=== PATIENT | male | born 1955 | race Caucasian/White ===

== ENCOUNTER 2023-04-01 06:34 | Outpatient (OUT) | payer BC, SELFPAY ==
[2023-04-01 07:15] LABS: Basophils Percent Auto 0.7 % (0.2-2.0); Eosinophils Absolute Auto 0.2 10^3/uL (0.0-0.7); Eosinophils Percent Auto 2.7 % (0.9-7.0); Hematocrit 39.9 % (42.0-54.0); Hemoglobin 12.7 g/dL (14.0-18.0); Immature Granulocytes Abs Auto 0.01 10^3/uL (0.00-0.03); Immature Granulocytes Pct Auto 0.2 % (0.0-0.5); Lymphocytes Absolute Auto 1.6 10^3/uL (1.2-3.8); Lymphocytes Percent Auto 26.5 % (20.5-60.0); Mean Corpuscular HGB Conc 31.8 g/dL (29.9-35.2); Mean Corpuscular Hemoglobin 30.4 pg (25.9-34.0); Mean Corpuscular Volume 95.5 fL (80.0-94.0); Mean Platelet Volume 10.8 fL (9.5-13.5); Monocytes Absolute Auto 0.4 10^3/uL (0.3-0.8); Monocytes Percent Auto 7.2 % (1.7-12.0); Neutrophils Absolute Auto 3.8 10^3/uL (1.4-6.5); Neutrophils Percent Auto 62.7 % (43.0-75.0); Platelet Count 169 10^3/uL (150-450); Red Blood Count 4.18 10^6/uL (4.70-6.10); Red Cell Distribution Width 15.9 % (11.0-15.0)
[2023-04-01 07:16] LABS: Bilirubin Urine NEGATIVE (NEGATIVE); Blood Urine NEGATIVE (NEGATIVE); Clarity Urine CLEAR (CLEAR); Color Urine YELLOW (YELLOW); Glucose Urine UA NEGATIVE (NEGATIVE); Ketones Urine NEGATIVE (NEGATIVE); Leukocyte Esterase Urine NEGATIVE (NEGATIVE); Nitrite Urine NEGATIVE (NEGATIVE); Protein Urine NEGATIVE (NEG/TRACE); Specific Gravity Urine 1.025 (1.005-1.025); Urobilinogen Urine 0.2 EU/dL (0.2-1.0); pH Urine 5.5 (5.0-9.0)
[2023-04-01 09:45] LABS: Alanine Aminotransferase 64 U/L (16-63); Albumin Globulin Ratio 1.3; Albumin Level 3.8 g/dL (3.4-5.0); Alkaline Phosphatase 142 U/L (46-116); Anion Gap 12.4; Aspartate Amino Transferase 41 U/L (15-37); BUN Creatinine Ratio 29.4; Bilirubin Total 1.1 mg/dL (0.2-1.0); Calcium 7.4 mg/dL (8.5-10.1); Carbon Dioxide 20.6 mmol/L (21.0-32.0); Chloride 113 mmol/L (98-107); Chol HDL Ratio 1.7; Cholesterol 65 mg/dL (<=200); Estimated GFR (African America >60 (>=60); Estimated GFR (Non-African Ame >60 (>=60); Globulin 2.9 g/dL; Glucose 88 mg/dL (74-106); HDL Cholesterol 39 mg/dL (40-60); Sodium 142 mmol/L (136-145); Total Protein 6.7 g/dL (6.4-8.2); Triglycerides 34 mg/dL (<=150); VLDL CHOLESTEROL 6.8 mg/dL
[2023-04-01 13:19] LABS: Bacteria Urine NONE SEEN #/HPF (NONE SEEN); Cast Seen? NONE SEEN #/LPF (NONE SEEN); Crystals Seen? None Seen #/HPF (None Seen); Mucus Urine NONE SEEN (NONE SEEN); RBC Urine NONE SEEN #/HPF (0-2); Squamous Epithelial Cell Urine RARE #/LPF (NONE/RARE)
[2023-04-02 04:07] LABS: Vitamin B12 452 pg/mL (232-1245)
== END 2023-04-01 06:35 | disposition home or self-care (01) ==
PROVIDERS: PCP Nurse Practitioner; Visit Provider Nurse Practitioner
DX: K95.89 Other complications of other bariatric procedure (principal); D50.9 Iron deficiency anemia, unspecified; I50.22 Chronic systolic (congestive) heart failure; E78.5 Hyperlipidemia, unspecified; R31.0 Gross hematuria
CPT/HCPCS: 36415; 80053; 80061; 81001; 82607; 82728; 83540; 85025

== ENCOUNTER 2023-10-15 17:00 | Outpatient (OUT) | payer BC, SELFPAY ==
[2023-10-15 17:56] LABS: Prostate Specific Antigen Dx 1.87 ng/mL (<=4.00)
== END 2023-10-15 17:01 | disposition home or self-care (01) ==
PROVIDERS: PCP Nurse Practitioner; Visit Provider Urology
DX: C61 Malignant neoplasm of prostate (principal); N40.1 Benign prostatic hyperplasia with lower urinary tract symptoms; R31.0 Gross hematuria; N41.1 Chronic prostatitis; N20.0 Calculus of kidney; N28.1 Cyst of kidney, acquired
CPT/HCPCS: 36415; 84153

== ENCOUNTER 2023-12-24 07:03 | Outpatient (OUT) | payer BC, SELFPAY ==
--- OUTSIDE RECORDS SUMMARY | 2023-12-24 07:08 | XMS_ITS | CCD ---
Author Organization [facility] Care Team Providers Care Catastrophe Claims Supervisor Name Role Phone PHYSICIAN, DEFAULT Unavailable Unavailable PHYSICIAN, DEFAULT Unavailable Unavailable MATTHHEMANT ANGUIANOA J. Referring Unavailable AICHHOLMichelle, PARK J. Primary Care Unavailable MATTHSILVIO, PARK J Primary Care Physician ANAHI Jackson, DR NGUYỄN Consulting Unavailable BRIGGS ., DR NGUYỄN Admitting Unavailable BRIGGS ., DR NGUYỄN Attending Unavailable AICHHOLZ, COORDINATE MEASURING MACHINE PROGRAMMER PARK Primary Care Unavailable MISC, DR AYERS Consulting Unavailable MISC, DR AYERS Admitting Unavailable MISC, DR AYERS Attending Unavailable AICHHOLZ, COORDINATE MEASURING MACHINE PROGRAMMER PARK Primary Care Unavailable AICHHOLZ, COORDINATE MEASURING MACHINE PROGRAMMER PARK Consulting Unavailable AICHHOLZ, COORDINATE MEASURING MACHINE PROGRAMMER PARK Primary Care Unavailable BRIGGS ., DR NGUYỄN Admitting Unavailable BRIGGS ., DR NGUYỄN Attending Unavailable ZIEBER, DR CASSIDY Ross Consulting Unavailable ELI DALAL Attending Unavailable ELI DALAL Admitting Unavailable AICHHOLZ, COORDINATE MEASURING MACHINE PROGRAMMER PARK Primary Care Unavailable JENNIFER DRAKE Consulting Unavailable DEANNE OTOOLE Consulting UnavailISACC Sidhu Admitting Unavailable ISACC BEJARANO Attending Unavailable AICHHOLZ, COORDINATE MEASURING MACHINE PROGRAMMER PARK Primary Care Unavailable ISACC BEJARANO Consulting Unavailable AICHHOLZ, COORDINATE MEASURING MACHINE PROGRAMMER PARK Primary Care Unavailable NILL ., DR MCALLISTER Admitting Unavailable NILL ., DR MCALLISTER Attending Unavailable NILL ., DR MCALLISTER Consulting Unavailable AICHHOLZ, COORDINATE MEASURING MACHINE PROGRAMMER PARK Primary Care Unavailable NILL ., DR MCALLISTER Admitting Unavailable NILL ., DR MCALLISTER Attending Unavailable GRACE LEO Consulting Unavailable JUAN ORO Consulting Unavailable AICHHOLZ, COORDINATE MEASURING MACHINE PROGRAMMER PARK Consulting Unavailable AICHHOLZ, COORDINATE MEASURING MACHINE PROGRAMMER PARK Primary Care Unavailable AICHHOLZ, COORDINATE MEASURING MACHINE PROGRAMMER PARK Admitting Unavailable AICHHOLMichelle, COORDINATE MEASURING MACHINE PROGRAMMER PARK Attending Unavailable MATTHSILVIO, COORDINATE MEASURING MACHINE PROGRAMMER PARK Consulting Unavailable PARESH, COORDINATE MEASURING MACHINE PROGRAMMER PARK Admitting Unavailable PARESH, COORDINATE MEASURING MACHINE PROGRAMMER PARK Attending Unavailable PARESH, LILIANA MARCOSA Primary Care Unavailable ANAHI, Puneet Ross Attending Unavailable ANAHI, Puneet Ross Attending Unavailable ANAHI, Puneet R Attending Unavailable ANAHI, Puneet R Attending Unavailable BRIGGS, Puneet Ross Attending Unavailable ANAHI, Puneet Ross Attending Unavailable PARESH, PARK Attending Unavailable Kenny Hartley MD Primary Care Provider Medications Current Medications Medication Drug Class(es) Dates Sig (Normalized) Sig (Original) Aspirin (6 sources) Platelet Aggregation Inhibitor, Nonsteroidal Anti-inflammatory Drug Start: 10-20-2019 aspirin 81 mg, Refills(s) 0 Start Date: 10/20/19 Status: Ordered atorvastatin 40 mg oral tablet (9 sources) HMG-CoA Reductase Inhibitor Start: 04-27-2020 take 1 tablet by mouth in the morning atorvastatin (Lipitor) 40 MG tablet Take 1 tablet by mouth in the morning. 0 08/06/2023 Active Calcium Carbonate (6 sources) Start: 12-06-2021 calcium carbonate 500 mg Chew Tab 500 mg = 1 tab(s), Chewed, Daily, Refills(s) 0 Start Date: 12/06/21 Status: Ordered cetirizine hydrochloride 10 mg oral tablet (3 sources) Histamine-1 Receptor Antagonist Start: 03-03-2023 take 1 tablet by mouth in the morning cetirizine (ZyrTEC) 10 MG tablet Take 1 tablet by mouth in the morning. 0 03/03/2023 Active dutasteride 0.5 mg oral capsule (7 sources) 5-alpha Reductase Inhibitor Start: 11-04-2022 End: 10-30-2023 take 1 capsule by mouth in the morning dutasteride (Avodart) 0.5 MG capsule Take 1 capsule by mouth in the morning. 0 09/08/2023 Active fluticasone propionate 0.05 mg/actuat metered dose nasal spray (3 sources) Corticosteroid Start: 03-03-2023 take 2 spray(s) nasal route in the morning fluticasone (Flonase) 50 MCG/ACT nasal spray Administer 2 sprays into each nostril in the morning. 0 03/03/2023 Active Iron Chews (6 sources) Start: 12-06-2021 Iron Chews 1, Chewed, Daily, Refills(s) 0 Start Date: 12/06/21 Status: Ordered lisinopril 5 mg oral tablet (9 sources) Angiotensin Converting Enzyme Inhibitor Start: 12-06-2021 take 1 tablet by mouth in the morning lisinopril 5 MG tablet Take 1 tablet by mouth in the morning. 0 08/06/2023 Active 24 hr metoprolol succinate 25 mg extended release oral tablet (9 sources) beta-Adrenergic Chelle Start: 07-09-2023 take 1 tablet by mouth every twenty-four hours in the morning metoprolol succinate XL (Toprol-XL) 25 MG 24 hr tablet Take 1 tablet by mouth in the morning. 0 07/09/2023 Active Start: 10-24-2019 take 1 tablet by brissa th once daily metoprolol 25 mg ER Tab 25 mg = 1 tab(s), Oral, Daily Start Date: 10/24/19 Status: Ordered Multi Vitamin+ (6 sources) Start: 10-24-2019 Multi Vitamin+ Start Date: 10/24/19 Status: Ordered Multiple Vitamin (multivitamin) tablet (3 sources) take 1 tablet by mouth in the morning Multiple Vitamin (multivitamin) tablet Take 1 tablet by mouth in the morning. 0 Active Completed/Discontinued Medications Medication Drug Class(es) Dates Sig (Normalized) Sig (Original) ciprofloxacin 500 mg oral tablet (2 sources) Quinolone Antimicrobial Start: 10-13-2022 take 1 tablet by mouth once daily Cipro 500 mg Tab 500 mg = 1 tab(s), Oral, Daily, Take 1 tablet the day before the procedure and 1 tablet after the procedure, # 2 tab(s), Refills(s) 0, Pharmacy: [id number], 176, cm, 05/19/22 16:10:00 EDT, Height/Length Dosing, 115, kg, 05/19/22 16:10:00 ED... Start Date: 10/13/22 Status: Ordered Problems Active Problems Problem Classification Problem Date Documented Da te Episodic/Chronic Cancer of prostate (18 sources) Malignant tumor of prostate; Translations: [Malignant neoplasm of prostate] Onset: 12-24-2021 11-30-2020 Chronic Cardiac dysrhythmias (20 sources) Atrial flutter; Translations: [Nonsustained ventricular tachycardia ] Onset: 03-25-2017 12-06-2021 Chronic Conduction disorders (10 sources) Right bundle branch block; Translations: [Unspecified right bundle-branch block] Onset: 12-01-2017 12-06-2021 Chronic Congestive heart failure; nonhypertensive (13 sources) Chronic systolic heart failure; Translations: [Chronic systolic (congestive) heart failure] Onset: 04-09-2017 12-06-2021 Chronic Deficiency and other anemia (14 sources) Iron deficiency anemia; Translations: [Other iron deficiency anemias] Onset: 01-01-2022 Episodic Deficiency and other anemia (9 sources) Anemia 12-06-2021 Episodic Disorders of lipid metabolism (5 sources) Hyperlipidemia, unspecified; Translations: [Mixed hyperlipidemia] Onset: 05-19-2022 11-04-2023 Chronic Essential hypertension (14 sources) Hypertensive disorder; Translations: [Essential hypertension] Onset: 11-15-2021 10-20-2019 Chronic Gastritis and duodenitis (1 source) Unspecified chronic gastritis without bleeding; Translations: [UNS CHRONIC GASTRITIS W/O BLEEDING] Onset: 12-24-2021 Chronic Gastroduodenal ulcer (except hemorrhage) (1 source) Gastric ulcer, unspecified as acute or chronic, without hemorrhage or perforation; Translations: [GASTR ULCR UNS AC/CHRN W/O HEM/PERF] Onset: 12-24-2021 Chronic Gastroduodenal ulcer (except hemorrhage) (10 sources) Acute gastric ulcer without hemorrhage AND without perforation; Translations: [Acute gastric ulcer without hemorrhage or perforation] Onset: 01-01-2022 Episodic Genitourinary symptoms and ill-defined conditions (12 sources) Blood in urine; Translations: [Gross hematuria] Onset: 05-01-2022 Episodic Heart valve disorders (6 sources) Heart murmur 12-06-2021 Episodic Hyperplasia of prostate (16 sources) Benign prostatic hypertrophy with outflow obstruction; Translations: [Benign prostatic hyperplasia with lower urinary tract symptoms] Onset: 05-19-2022 11-30-2020 Chronic Hypertension with complications and secondary hypertension (1 source) Hypertensive heart disease with heart failure; Translations: [HTN HEART DISEASE W/HEART FAIL] Onset: 12-24-2021 Chronic Inflammatory conditions of male genital organs (11 sources) Chronic prostatitis; Translations: [Chronic prostatitis] Onset: 05-19-2022 10-24-2019 Chronic Other aftercare (1 source) snf (current) use of aspirin; Translations: [SPLITTER HEAD CURRENT USE OF ASPIRIN] Onset: 09-15-2022 Episodic Other aftercare (1 source) Other joint terminal attack controller (current) drug therapy; Translations: [OTH SPLITTER HEAD CURRENT DRUG THERAPY] Onset: 09-15-2022 Episodic Other diseases of kidney and ureters (5 sources) Urinary tract obstruction; Translations: [Other obstructive and reflux uropathy] Onset: 05-19-2022 Episodic Other diseases of kidney and ureters (3 sources) Acquired renal cyst without neoplastic change; Translations: [Cyst of kidney, acquired] Onset: 11-04-2022 Episodic Other diseases of kidney and ureters (4 sources) Cyst of kidney 11-04-2022 Episodic Other diseases of veins and lymphatics (7 sources) Venous insufficiency of leg 12-06-2021 Episodic Other gastrointestinal disorders (4 sources) History of bariatric surgical procedure; Translations: [Bariatric surgery status] Onset: 11-04-2023 11-04-2023 Episodic Other nutritional; endocrine; and metabolic disorders (10 sources) Body mass index 30+ - obesity; Translations: [Body mass index (BMI) 37.0-37.9, adult] Onset: 11-04-2023 12-06-2021 Chronic Other nutritional; endocrine; and metabolic disorders (4 sources) Obese class II; Translations: [Body mass index (BMI) 36.0-36.9, adult] Onset: 05-19-2022 Chronic Catherine-; endo-; and myocarditis; cardiomyopathy (except that caused by tuberculosis or sexually transmitted disease) (15 sources) Cardiomyopathy; Translations: [Other cardiomyopathies] Onset: 09-18-2017 12-06-2021 Chronic Pulmonary heart disease (1 source) Pulmonary hypertension, unspecified; Translations: [PULMONARY HYPERTENSION UNSPECIFIED] Onset: 12-24-2021 Chronic Screening and history of mental health and substance abuse codes (1 source) Personal history of nicotine dependence; Translations: [PERSONAL HISTORY OF NICOTINE DEPEND] Onset: 09-15-2022 Episodic Unclassified (7 sources) Severe pulmonary hypertension 12-06-2021 Unclassified (3 sources) History of SARS-CoV-2 Onset: 11-19-2021 03-12-2023 Past or Other Problems Problem Classification Problem Date Documented Da te Episodic/Chronic Acute and unspecified renal failure (3 sources) Acute renal failure syndrome Onset: 01-15-2014 03-12-2023 Episodic Calculus of urinary tract (20 sources) History of calculus of kidney; Translations: [Kidney stone] Onset: 01-15-2014 10-24-2019 Episodic Complications of surgical procedures or medical care (9 sources) Postoperative complication; Translations: [Other complications of other bariatric procedure] Onset: 12-24-2021 Episodic Deficiency and other anemia (5 sources) Iron deficiency anemia, unspecified; Translations: [IRON DEFICIENCY ANEMIA UNSPECIFIED] Onset: 12-18-2021 Episodic Fluid and electrolyte disorders (3 sources) Hypokalemia Onset: 01-15-2014 03-12-2023 Episodic Other gastrointestinal disorders (1 source) Bariatric surgery status; Translations: [BARIATRIC SURGERY STATUS] Onset: 12-24-2021 Episodic Urinary tract infections (1 source) Urinary tract infection, site not specified; Translations: [UTI SITE NOT SPECIFIED] Onset: 05-01-2022 Episodic Results Test Name Value Interpretation Reference Range Facility Ambulatory Visit Summaryon 0 04-13-2023 Ambulatory Visit Summary SHABNAM BURGESS :1955 Visit Date:04/13/2023 Ambulatory Visit Instructions Your Diagnosis Prostate cancer BPH with urinary obstruction Gross hematuria Chronic prostatitis Kidney stones Renal cyst Tests Performed Urnls Dip Stick Auto w/o Microscopy POC [id number] Your Care Team Attending Physician - Puneet BRIGGS MD Primary Care Physician - PARK YODER CNP This Is Your Medications List Contact prescribing physician if questions or concerns aspirin atorvastatin (atorvastatin 40 mg Tab) calcium carbonate (calcium carbonate 500 mg Chew Tab) carbonyl iron (Iron Chews) dutasteride (dutasteride 0.5 mg Cap) lisinopril (lisinopril 5 mg Tab) metoprolol (metoprolol 25 mg ER Tab) multivitamin (Multi Vitamin+) Procedures Performed Cystoscopy (11/04/2022), Colonoscopy (12/18/2021), EGD - Esophagogastroduodenoscopy (12/18/2021), MRI-US fusion guided transrectal biopsy of prostate (11/14/2021), Transrectal biopsy of prostate using ultrasound (US) guidance (03/27/2021), TURP - Transurethral resection of prostate (03/22/2020), Cystoscope (01/12/2017), Gastric bypass operation (1999), Appendectomy, Cardiac catheterization, Cholecystectomy, Colonoscopy, History of cardiac radiofrequency ablation, Lithotripsy, Repair of umbilical hernia. Discharge Vitals Heart Rate (Peripheral) 68 Respiratory Rate 16 Blood Pressure 130/80 Height 176 cm Height 69 in Weight 115 kg Weight 253 lb BMI 37.13 What to do next Scheduled Follow-Up Appointments Thursday 2:45 PM EST With: ANAHI MCDONALD, Puneet Ross Where: [facility] Natalie Normal [facility] Patient Educationon 04-13-20 Patient Education Oncology Prostate Cancer The prostate is a small gland that produces fluid that makes up semen (seminal fluid). It is located below the bladder in men, in front of the rectum. Prostate cancer is the abnormal growth of cells in the prostate gland. What are the causes? The exact cause of this condition is not known. What increases the risk? You are more likely to develop this condition if: ? You are 65 years of age or older. ? You have a family history of prostate cancer. ? You have a family history of breast and ovarian cancer. ? You have genes that are passed from parent to child (inherited), such as BRCA1 and BRCA2. ? You have Reardon syndrome. men and men of descent are diagnosed with prostate cancer at higher rates than other men. The reasons for this are not well understood and are likely due to a combination of genetic and environmental factors. What are the signs or symptoms? Symptoms of this condition include: ? Problems with urination. This may include: ? A weak or interrupted flow of urine. ? Trouble starting or stopping urination. ? Trouble emptying the bladder all the way. ? The need to urinate more often, especially at night. ? Blood in urine or semen. ? Persistent pain or discomfort in the lower back, lower abdomen, or hips. ? Trouble getting an erection. ? Weakness or numbness in the legs or feet. How is this diagnosed? This condition can be diagnosed with: ? A digital rectal exam. For this exam, a health care provider inserts a gloved finger into the rectum to feel the prostate gland. ? A blood test called a prostate-specific antigen (PSA) test. ? A procedure in which a sample of tissue is taken from the prostate and checked under a microscope (prostate biopsy). ? An imaging test called transrectal ultrasonography. Once the condition is diagnosed, tests will be done to determine how far the cancer has spread. This is called staging the cancer. Staging may involve imaging tests, such as a bone scan, CT scan, PET scan, or MRI. Stages of prostate cancer The stages of prostate cancer are as follows: ? Stage 1 (I). At this stage, the cancer is found in the prostate only. The cancer is not visible on imaging tests, and it is usually found by accident, such as during prostate surgery. ? Stage 2 (II). At this stage, the cancer is more advanced than it is in stage 1, but the cancer has not spread outside the prostate. ? Stage 3 (III). At this stage, the cancer has spread beyond the outer layer of the prostate to nearby tissues. The cancer may be found in the seminal vesicles, which are near the bladder and the prostate. ? Stage 4 (IV). At this stage, the cancer has spread to other parts of the body, such as the lymph nodes, bones, bladder, rectum, liver, or lungs. Prostate cancer grading Prostate cancer is also graded according to how the cancer cells look under a microscope. This is called the Marixa score and the total score can range from 6?10, indicating how likely it is that the cancer will spread (metastasize) to other parts of the body. The higher the score, the greater the likelihood that the cancer will spread. ? Marixa 6 or lower: This indicates that the cancer cells look similar to normal prostate cells (well differentiated). ? [place] 7: This indicates that the cancer cells look somewhat similar to normal prostate cells (moderately differentiated). ? [place] 8, 9, or 10: This indicates that the cancer cells look very different than normal prostate cells (poorly differentiated). How is this treated? Treatment for this condition depends on several factors, including the stage of the cancer, your age, personal preferences, and your overall health. Talk with your health care provider about treatment options that are recommended for you. Common treatments include: ? Observation for early stage prostate cancer (active surveillance). This involves having exams, blood tests, and in some cases, more biopsies. For some men, this is the only treatment needed. ? Surgery. Types of surgeries include: ? Open surgery (radical prostatectomy). In this surgery, a larger incision is made to remove the prostate. ? A laparoscopic radical prostatectomy. This is a surgery to remove the prostate and lymph nodes through several small incisions. It is often referred to as a minimally invasive surgery. ? A robotic radical prostatectomy. This is laparoscopic surgery to remove the prostate and lymph nodes with the help of robotic arms that are controlled by the surgeon. ? Cryoablation. This is surgery to freeze and destroy cancer cells. ? Radiation treatment. Types of radiation treatment include: ? External beam radiation. This type aims beams of radiation from outside the body at the prostate to destroy cancerous cells. ? Brachytherapy. This type uses radioactive needles, seeds, wires, or tubes that are implanted into the prostate gland. Like external be (more content not included)... Normal [facility] Reminderson 04-13-2023 Reminders - From: Shala Soares To: JAYASHREE Briggs; Sent: 04/13/2023 16:27:00 EDT Show up: 09/13/2023 15:26:00 EST Subject: PSA Reminder Message Please Remember to:_get PSA (at [facility]) prior to next appt. Normal [facility] Urology Office/Clinic Noteon 04-13-2023 Urology Office/Clinic Note Chief Complaint 4m HPI Staff S/P Cysto 11/04/22 DX: Gross hematuria, Prostate Cancer, Chronic Prostatitis, BPH, Kidney Stone & Renal Cysto *Dutasteride 5mg QD therapy started at time of last encounter. NEG FISH/Cytology done 11/04/22 PSA 11/21/22- 2.36 Does not notice any changes since starting Dutasteride therapy. Denies pain/burning and visible blood since last encounter. Denies any complaints with urinary stream. Denies flank pain. No concerns at this time. History of Present Illness Tests reviewed: reviewed UA I have reviewed the previous health record information and history for this patient from Dr. Briggs. I have reviewed and verified the staff HPI to be accurate for this encounter. There have been no associated fever, chills, flank pain, or blood in the urine. Denies any urinary infections since last encounter. Review of Systems PHQ Score Initial Depression Screen Score: 0 ROS - Provider Constitutional: denies weight loss, denies hot flashes. Eyes: denies eye problems. Gastrointestinal: denies nausea, denies vomiting. Cardiovascular: denies chest pain or angina. Integumentary: no dryness Musculoskeletal: denies musculoskeletal symptoms. ENMT: denies otolaryngeal symptoms. Respiratory: no shortness of breath. Heme/Lymph: denies easy bleeding tendency, denies easy bruising tendency. Psychiatric: no confusion, no anxiety. Genitourinary: See HPI. Physical Exam Vitals & Measurements HR: 68(Peripheral) RR: 16 BP: 130/80 HT: 69 in HT: 176 cm WT: 115 kg WT: 253 lb BMI: 37.13 General Appearance: alert, no distress, well nourished, well developed male. Genitourinary: normal scrotum, normal testes, normal urethra, normal epididymis, normal vas deferens/spermatic cord. Flank Pain: none. Bladder: nonpalpable. Assessment/Plan 1. Prostate cancer (C61: Malignant neoplasm of prostate) ACTIVE SURVEILLANCE. PSA: 08/30/20 - 2.75 11/29/20 - 3.75 05/16/22 - 3.63 11/21/22 - 2.36 (4.72) Follow up in 6 months w/ PSA, MARYLOU, and PVR or sooner if needed. All questions/concerns were discussed. Pt to call the office if he encounters any issues prior. Pt acknowledges understanding. 2. BPH with urinary obstruction (N40.1: Benign prostatic hyperplasia with lower urinary tract symptoms) S/p TURP done 03/22/20. Path showed adenocarcinoma in 2 out 150 prostatic chips. Pt is currently taking Dutasteride 0.5mg QD. Denies SEs. Pt is doing well with no bothersome urinary sxs at this time. 3. Gross hematuria (R31.0: Gross hematuria) S/p Cysto and FISH/Cytology 11/04/22 - negative. UA today negative for blood and shows trace leukocytes. 4. Chronic prostatitis (N41.1: Chronic prostatitis) Denies any infections since prior encounter. [1] 5. Kidney stones (N20.0: Calculus of kidney) CT AP wo con done 04/30/22 shows 2 nonobstructing stones within left kidney, largest is 4 mm. No ureteral stones. Denies any stone complications since prior encounter. [2] 6. Renal cyst (N28.1: Cyst of kidney, acquired) CT AP wo con done 04/30/22 shows small cyst within right and left kidney. Suspected benign cysts. [3] Follow-up With When Contact Information ANAHI MCDONALD, Puneet Ross, URL [facility] [address], [place] [id number] [phone] Additional Instructions: 6 mos w/ PSA and PVR Patient Education Prostate Cancer I, Shala Soares, personally scribed for Dr. Briggs on 04/13/2023 16:25:11. . Documentation recorded by the scribe, Shala Soares, accurately reflects the services(s) I performed and decisions made by me. Authenticated by Dr. Briggs on 04/13/2023 16:26:52. Problem List/Past Medical History Ongoing Acute gastric ulcer without hemorrhage AND without perforation Acute renal failure syndrome Anemia Atrial flutter BMI 36.0-36.9,adult BPH with urinary obstruction Cardiomyopathy Chronic prostatitis Chronic systolic heart failure Essential hypertension Gastric ulcer Gross hematuria History of kidney stones History of SARS-CoV-2 Hypertension Hypokalemia Iron deficiency anemia Iron deficiency anemia following bariatric surgery Kidney stones Malignant tumor of prostate Multiple premature ventricular complexes Murmur Non-ischemic cardiomyopathy Non-sustained ventricular tachycardia Obese class II Paroxysmal ventricular tachycardia Postoperative complication Prostate cancer Renal cyst Right bundle branch block Severe pulmonary hypertension Typical atrial flutter Ureteric stone Urinary tract obstruction Venous insufficiency of leg Ventricular premature complex Historical Anemia Procedure/Surgical History Cystoscopy (11/04/2022), Colonoscopy (12/18/2021), EGD - Esophagogastroduodenoscopy (12/18/2021), MRI-US fusion guided transrectal biopsy of prostate (11/14/2021), Transrectal biopsy of prostate using ultrasound (US) guidance (03/27/2021), TURP - Transurethral resection of prostat (more content not included)... Normal [facility] Comment on above: Result Comment: Electronically Signed By : Puneet BRIGGS MD\.br\Date and Time Signed: 04/13/23 16:26 EDT\.br\Electronically Co-Signed By: Shala Soares\.yonathan\Date and Time Co-Signed: 04/13/23 16:25 EDT Lab Reportson 11-30-2022 Lab Reports [id number] Normal [facility] UroVysion Fish and Urine Cyt o ([facility])on 11-13-2022 UVFISH & UC Diagnosis Info Invalid Interpretation Code [facility] Comment on above: Result Comment: A:Urine,Urine:Voided Diagnosis Summary - Diagnosis Summary - The UroVysion FISH study detected normal copy numbers for chromosomes 3, 7, 17, and 9p21. 170 cells were analyzed in this evaluation. No evidence of aneuploidy for chromosomes 3, 7, or 17 or deletion of the 9p21 locus was found in cells present in this specimen. This test does not rule out the possibility of a low grade non-invasive papillary urothelial carcinoma. These findings should be correlated with cytology and cystoscopy results.* Microscopic Notes - Microscopic Notes - Abnormal cells 9p21 deletions: Abnormal cells aneploid events: Total cells analyzed: 170 Hematuria: Gross Description Site ID:A color [place] fixative Alcohol Received 80 mls of clear orange fluid with the patient's name and, Urine on the vial. Electronically signed by : on: 11/13/2022 08:34:30 Performed By: #### 1 [id number] ####[facility] [address] [place] [address] Consent for Procedure/Surger yon 11-05-2022 Consent for Procedure/Surge ry [id number]:127 Normal [facility] UroVysion Fish and Urine Cyt o ([facility])on 11-04-2022 [facility] Method of Extraction Bladder Urine Normal [facility] Comment on above: Performed By: #### [id number] ####[facility] [address] [place] [address] [facility] Number of Jars 1 Invalid Interpretation Code [facility] Comment on above: Performed By: #### [id number] ####[facility] [address] [place] [address] [facility] Specimen Urine Normal [facility] Comment on above: Performed By: #### [id number] ####[facility] [address] [place] [address] [facility] Type of Service Global Normal [facility] Comment on above: Performed By: #### [id number] ####[facility] [address] [place] [address] Urology Office/Clinic Noteon 11-04-2022 Urology Office/Clinic Note Chief Complaint Cystoscopy HPI Staff Shabnam is a 66 y/o male here for a Cystoscopy. ABX taken History of Present Illness Tests reviewed: none. I have reviewed the previous health record information and history for this patient from Dr. Briggs. I have reviewed and verified the staff HPI to be accurate for this encounter. There have been no associated fever, chills, flank pain, or blood in the urine. Denies any urinary infections since last encounter. Review of Systems PHQ Score Initial Depression Screen Score: 0 ROS - Provider Constitutional: denies weight loss, denies hot flashes. Eyes: denies eye problems. Gastrointestinal: denies nausea, denies vomiting. Cardiovascular: denies chest pain or angina. Integumentary: no dryness Musculoskeletal: denies musculoskeletal symptoms. ENMT: denies otolaryngeal symptoms. Respiratory: no shortness of breath. Heme/Lymph: denies easy bleeding tendency, denies easy bruising tendency. Psychiatric: no confusion, no anxiety. Genitourinary: See HPI. Physical Exam Vitals & Measurements HR: 68(Peripheral) BP: 118/69 HT: 69 in HT: 176 cm WT: 115 kg WT: 253 lb BMI: 37.13 General Appearance: alert, no distress, well nourished, well developed male. Genitourinary: normal scrotum, normal testes, normal urethra, normal epididymis, normal vas deferens/spermatic cord. Flank Pain: none. Bladder: nonpalpable. Procedure Operative Information Anesthesia Type: Local Procedure: Local Cystoscopy Complications: None Surgical risks, benefits, details of the procedure have been explained to the patient. Full informed consent has been obtained. Intraoperative Information Prepped: Patient is brought back to the endoscopy suite. Patient is placed in supine position. Patient prepped in the usual fashion with Betadine solution. 2% Xylocaine Jelly is placed per Urethra. After waiting several minutes, the Cystoscope is introduced. The Urethra is: Normal The Prostatic Urethra is: _At the bladder neck posteriorly on the left is a moderate regrowth area that is inflamed, edematous and oozing. The Bladder: _No tumors or stones. Trabeculated: Severe (3) The Ureteral orifices: Show efflux of clear urine Specimens Removed: Voided specimen sent for FISH and Cytology test Removal: Cystoscope is removed. The patient tolerated it well. Postoperative Information Patient is discharged home with antibiotic coverage. Follow up arranged. Assessment/Plan 1. Gross hematuria (R31.0: Gross hematuria) Pt passed blood and clots on 09/12/22. Went to [facility] ER, they did urine cx. Was not started on abx. Second incidence of gross hematuria. Also passed 2 clots and blood on 05/01/22. Pt had IO cysto without complications today. Pt took prophylactic abx prior to procedure. Will send voided specimen for FISH/cytol and call pt if positive. 2. Prostate cancer (C61: Malignant neoplasm of prostate) ACTIVE SURVEILLANCE. PSA: 08/30/20 - 2.75 11/29/20 - 3.75 05/16/22 - 3.63 From TURP path. Will continue to monitor. 3. Chronic prostatitis (N41.1: Chronic prostatitis) Denies any infections since prior encounter. 4. BPH with urinary obstruction (N40.1: Benign prostatic hyperplasia with lower urinary tract symptoms) S/p TURP done 03/22/20. Path showed prostate cancer. Pt is not currently on any prostate medications. Start Dutasteride 5 mg QD. SEs discussed. Rx sent to [facility]. Follow up in 4 mos after starting Dutasteride or sooner if needed. Pt understands and agrees with plan. 5. Kidney stones (N20.0: Calculus of kidney) CT AP wo con done 04/30/22 shows 2 nonobstructing stones within left kidney, largest is 4 mm. No ureteral stones. Denies any stone complications since prior encounter. 6. Renal cyst (N28.1: Cyst of kidney, acquired) CT AP wo con done 04/30/22 shows small cyst within right and left kidney. Suspected benign cysts. Follow-up With When Contact Information Puneet BRIGGS MD, [facility] [address], [place] [address]- Additional Instructions: f/u 4 mos Patient Education Benign Prostatic Hyperplasia I, Soha Li, personally scribed for Dr. Briggs on 11/04/2022 15:04:55. . Documentation recorded by the scribe, Soha Li, accurately reflects the services(s) I performed and decisions made by me. Authenticated by Dr. Briggs on 11/04/2022 15:08:15. Problem List/Past Medical History Ongoing Atrial flutter BMI 36.0-36.9,adult BPH with urinary obstruction Chronic prostatitis Chronic systolic heart failure Gastric ulcer Gross hematuria History of kidney stones Hypertension Iron deficiency anemia following bariatric surgery Kidney stones Murmur Non-ischemic cardiomyopathy Non-sustained ventricular tachycardia Paroxysmal ventricular tachycardia Prostate cancer Renal cyst Right BB block Severe pulmonary hypertension Venous insufficiency of lower (more content not included)... Normal [facility] Comment on above: Result Comment: Electronically Signed By : Puneet BRIGGS MD R\.br\Date and Time Signed: 11/04/22 15:08 EST\.br\Electronically Co-Signed By: Soha Li\.br\Date and Time Co-Signed: 11/04/22 15:05 EST Patient Educationon 11-03-19 Patient Education Urology Benign Prostatic Hyperplasia Benign prostatic hyperplasia (BPH) is an enlarged prostate gland that is caused by the normal aging process and not by cancer. The prostate is a walnut-sized gland that is involved in the production of semen. It is located in front of the rectum and below the bladder. The bladder stores urine and the urethra is the tube that carries the urine out of the body. The prostate may get bigger as a man gets older. An enlarged prostate can press on the urethra. This can make it harder to pass urine. The build-up of urine in the bladder can cause infection. Back pressure and infection may progress to bladder damage and kidney (renal) failure. What are the causes? This condition is part of a normal aging process. However, not all men develop problems from this condition. If the prostate enlarges away from the urethra, urine flow will not be blocked. If it enlarges toward the urethra and compresses it, there will be problems passing urine. What increases the risk? This condition is more likely to develop in men over the age of 50 years. What are the signs or symptoms? Symptoms of this condition include: ? Getting up often during the night to urinate. ? Needing to urinate frequently during the day. ? Difficulty starting urine flow. ? Decrease in size and strength of your urine stream. ? Leaking (dribbling) after urinating. ? Inability to pass urine. This needs immediate treatment. ? Inability to completely empty your bladder. ? Pain when you pass urine. This is more common if there is also an infection. ? Urinary tract infection (UTI). How is this diagnosed? This condition is diagnosed based on your medical history, a physical exam, and your symptoms. Tests will also be done, such as: ? A post-void bladder scan. This measures any amount of urine that may remain in your bladder after you finish urinating. ? A digital rectal exam. In a rectal exam, your health care provider checks your prostate by putting a lubricated, gloved finger into your rectum to feel the back of your prostate gland. This exam detects the size of your gland and any abnormal lumps or growths. ? An exam of your urine (urinalysis). ? A prostate specific antigen (PSA) screening. This is a blood test used to screen for prostate cancer. ? An ultrasound. This test uses sound waves to electronically produce a picture of your prostate gland. Your health care provider may refer you to a specialist in kidney and prostate diseases (urologist). How is this treated? Once symptoms begin, your health care provider will monitor your condition (active surveillance or watchful waiting). Treatment for this condition will depend on the severity of your condition. Treatment may include: ? Observation and yearly exams. This may be the only treatment needed if your condition and symptoms are mild. ? Medicines to relieve your symptoms, including: ? Medicines to shrink the prostate. ? Medicines to relax the muscle of the prostate. ? Surgery in severe cases. Surgery may include: ? Prostatectomy. In this procedure, the prostate tissue is removed completely through an open incision or with a laparoscope or robotics. ? Transurethral resection of the prostate (TURP). In this procedure, a tool is inserted through the opening at the tip of the penis (urethra). It is used to cut away tissue of the inner core of the prostate. The pieces are removed through the same opening of the penis. This removes the blockage. ? Transurethral incision (TUIP). In this procedure, small cuts are made in the prostate. This lessens the prostate's pressure on the urethra. ? Transurethral microwave thermotherapy (TUMT). This procedure uses microwaves to create heat. The heat destroys and removes a small amount of prostate tissue. ? Transurethral needle ablation (TUNA). This procedure uses radio frequencies to destroy and remove a small amount of prostate tissue. ? Interstitial laser coagulation (ILC). This procedure uses a laser to destroy and remove a small amount of prostate tissue. ? Transurethral electrovaporization (TUVP). This procedure uses electrodes to destroy and remove a small amount of prostate tissue. ? Prostatic urethral lift. This procedure inserts an implant to push the lobes of the prostate away from the urethra. Follow these instructions at home: ? Take kcep-spm-hnccmdo and prescription medicines only as told by your health care provider. ? Monitor your symptoms for any changes. Contact your health care provider with any changes. ? Avoid drinking large amounts of liquid before going to bed or out in public. ? Avoid or reduce how much caffeine or alcohol you drink. ? Give yourself time when you urinate. ? Keep all follow-up visits as told by your health care provider. This is important. Contact a health care provider if: ? You have unexplained back pain. ? Your symptoms do not get better with treatment. ? You d (more content not included)... Normal [facility] Pre-Certification Formon Pre-Certificati on Form [id number]:127 Normal [facility] ER URINE PROFILEon 2 Bilirubin Ql (U) Negative Normal NEGATIVE [facility] Comment on above: Performed By: #### SKYLAR CAMARENA #### [facility] [address] [place] [address] Dr. Santhosh Francois Clarity (U) CLEAR Normal CLEAR [facility] Comment on above: Performed By: #### NICOL, ERUR #### [facility] [address] [place] [address] Dr. Santhosh Francois Color (U) LT. YELLOW Normal YELLOW [facility] Comment on above: Performed By: #### NICOL, ERUR #### [facility] [address] [address] [address] Santhosh Francois ERUAHD A micrscopic examina tion will be performed if indicated. Normal [facility] Comment on above: Performed By: #### NICOL, ERUR #### [facility] [address] [place] [address] Dr. Santhosh Francois Glucose Ql (U) Negative Normal NEGATIVE [facility] Comment on above: Performed By: #### NICOL, ERUR #### [facility] [address] [place] [address] Dr. Santhosh Francois Hemoglobin Ql (U) LARGE Abnormal NEGATIVE [facility] Comment on above: Performed By: #### NICOL ERUR #### [facility] [address] [place] [address] Dr. Santhosh Francois Ketones Ql (U) Negative Normal NEGATIVE [facility] Comment on above: Performed By: #### NICOL ERUR #### [facility] [address] [place] [address] Dr. Santhosh Francois LEUKOCYTES Negative Normal NEGATIVE [facility] Comment on above: Performed By: #### NICOL ERUR #### [facility] [address] [place] [address] Dr. Santhosh Francois Nitrite Ql (U) Negative Normal NEGATIVE [facility] Comment on above: Performed By: #### NICOL ERUR #### [facility] [address] [place] [address] Dr. Santhosh Francois pH (U) 5.0 [pH] Normal 5-9 [facility] Comment on above: Performed By: #### NICOL ERUR #### [facility] [address] [place] [address] Dr. Santhosh Francois SPEC GRAVITY 1.010 Normal 1.005-<=1.02 5 [facility] Comment on above: Performed By: #### NICOL, ERUR #### [facility] [address] [place] [address] Dr. Santhosh Francois UA PROTEIN TRACE Normal NEGATIVE/ TRACE [facility] Comment on above: Performed By: #### NICOL, ERUR #### [facility] [address] [place] [address] Dr. Santhosh Francois UR MICRO IND INDICATED Normal [facility] Comment on above: Performed By: #### NICOL, ERUR #### [facility] [address] [place] [address] Dr. Santhosh Francois Urobilinogen Qn (U) 0.2 {Malini'U}/dL Normal 0.2 - 1.0 [facility] Comment on above: Performed By: #### NICOL, ERUR #### [facility] [address] [place] [address] Dr. Santhosh Francois URINE MICROSCOPIC ONLYon BACTERIA NONE SEEN Normal NONE SEEN [facility] Comment on above: Performed By: #### CBC #### [facility] [address] [place] [address] Dr. Santhosh Francois Bacteria identified Cx Nom (U) NOT INDICATED Normal [facility] Comment on above: Performed By: #### CBC #### [facility] [address] [place] [address] Dr. Santhosh Francois CAST NONE SEEN Normal NONE SEEN [facility] Comment on above: Performed By: #### CBC #### [facility] [address] [place] [address] Dr. Santhosh Francois Crystals LM Nom (Urine sed) NONE SEEN Normal NONE SEEN [facility] Comment on above: Performed By: #### CBC #### [facility] [address] [place] [address] Dr. Santhosh Francois Epithelial cells LM Ql (Urine sed) RARE Normal NONE SEEN /RARE [facility] Comment on above: Performed By: #### CBC #### [facility] [address] [place] [address] Dr. Santhosh Francois MUCOUS NONE SEEN Normal NONE SEEN [facility] Comment on above: Performed By: #### CBC #### [facility] [address] [place], [place] [address] Dr. Santhosh Francois RBC 10-20 Abnormal 0-2 [facility] Comment on above: Performed By: #### CBC #### [facility] [address] [place], [place] [address] Dr. Santhosh Francois WBC NONE SEEN Normal NONE SEEN [facility] Comment on above: Performed By: #### CBC #### [facility] [address] [place], [place] [address] Dr. Santhosh Francois Lab Reportson 05-20-2022 Lab Reports [id number]:127 Normal [facility] Ambulatory Visit Summaryon 0 05-19-2022 Ambulatory Visit Summary SHABNAM BURGESS :1955 Visit Date:05/19/2022 Ambulatory Visit Instructions Your Diagnosis Prostate cancer Chronic prostatitis BPH with urinary obstruction Kidney stones BMI 36.0-36.9,adult Other obstructive and reflux uropathy Tests Performed Urnls Dip Stick Auto w/o Microscopy POC 463[address] Your Care Team Attending Physician - ANAHI MCDONALD, Puneet Ross Primary Care Physician - PARK YODER CNP This Is Your Medications List Contact prescribing physician if questions or concerns aspirin atorvastatin (atorvastatin 40 mg Tab) calcium carbonate (calcium carbonate 500 mg Chew Tab) carbonyl iron (Iron Chews) lisinopril (lisinopril 5 mg Tab) metoprolol (metoprolol 25 mg ER Tab) multivitamin (Multi Vitamin+) Procedures Performed Colonoscopy (12/18/2021), EGD - Esophagogastroduodenoscopy (12/18/2021), MRI-US fusion guided transrectal biopsy of prostate (11/14/2021), Transrectal biopsy of prostate using ultrasound (US) guidance (03/27/2021), TURP - Transurethral resection of prostate (03/22/2020), Cystoscope (01/12/2017), Gastric bypass operation (1999), Appendectomy, Cardiac catheterization, Cholecystectomy, Colonoscopy, History of cardiac radiofrequency ablation, Lithotripsy, Repair of umbilical hernia. Discharge Vitals Heart Rate (Peripheral) 59 Respiratory Rate 16 Blood Pressure 117/66 Height 176 cm Height 176.0 cm Weight 115 kg Weight 115.0 kg BMI 37.13 What to do next Scheduled Follow-Up Appointments Thursday 3:30 PM EST With: ANAHI MCDONALD, Puneet Ross Where: [facility] [place] Normal [facility] Patient Educationon 05-19-20 Patient Education Infectious Disease Prostatitis Prostatitis is swelling of the prostate gland. The prostate helps to make semen. It is below a man's bladder, in front of the rectum. There are different types of prostatitis. Follow these instructions at home: ? Take gbwc-cyy-lmvhidg and prescription medicines only as told by your doctor. ? If you were prescribed an antibiotic medicine, take it as told by your doctor. Do not stop taking the antibiotic even if you start to feel better. ? If your doctor prescribed exercises, do them as directed. ? Take sitz baths as told by your doctor. To take a sitz bath, sit in warm water that is deep enough to cover your hips and butt. ? Keep all follow-up visits as told by your doctor. This is important. Contact a doctor if: ? Your symptoms get worse. ? You have a fever. Get help right away if: ? You have chills. ? You feel sick to your stomach (nauseous). ? You throw up (vomit). ? You feel light-headed. ? You feel like you might pass out (faint). ? You cannot pee (urinate). ? You have blood or clumps of blood (blood clots) in your pee (urine). This information is not intended to replace advice given to you by your health care provider. Make sure you discuss any questions you have with your health care provider. Document Released: 03/15/2013 Document Revised: 08/27/2018 Document Reviewed: 06/04/2017 Elsevier Patient Education ? 2020 [employer] Nutrition Calorie Counting for Weight Loss Calories are units of energy. Your body needs a certain amount of calories from food to keep you going throughout the day. When you eat more calories than your body needs, your body stores the extra calories as fat. When you eat fewer calories than your body needs, your body mcdonald fat to get the energy it needs. Calorie counting means keeping track of how many calories you eat and drink each day. Calorie counting can be helpful if you need to lose weight. If you make sure to eat fewer calories than your body needs, you should lose weight. Ask your health care provider what a healthy weight is for you. For calorie counting to work, you will need to eat the right number of calories in a day in order to lose a healthy amount of weight per week. A dietitian can help you determine how many calories you need in a day and will give you suggestions on how to reach your calorie goal. ? A healthy amount of weight to lose per week is usually 1?2 lb (0.5?0.9 kg). This usually means that your daily calorie intake should be reduced by 500?750 calories. ? Eating 1,200 ? 1,500 calories per day can help most women lose weight. ? Eating 1,500 ? 1,800 calories per day can help most men lose weight. What is my plan? My goal is to have calories per day. If I have this many calories per day, I should lose around pounds per week. What do I need to know about calorie counting? In order to meet your daily calorie goal, you will need to: ? Find out how many calories are in each food you would like to eat. Try to do this before you eat. ? Decide how much of the food you plan to eat. ? Write down what you ate and how many calories it had. Doing this is called keeping a food log. To successfully lose weight, it is important to balance calorie counting with a healthy lifestyle that includes regular activity. Aim for 150 minutes of moderate exercise (such as walking) or 75 minutes of vigorous exercise (such as running) each week. Where do I find calorie information? The number of calories in a food can be found on a Nutrition Facts label. If a food does not have a Nutrition Facts label, try to look up the calories online or ask your dietitian for help. Remember that calories are listed per serving. If you choose to have more than one serving of a food, you will have to multiply the calories per serving by the amount of servings you plan to eat. For example, the label on a package of bread might say that a serving size is 1 slice and that there are 90 calories in a serving. If you eat 1 slice, you will have eaten 90 calories. If you eat 2 slices, you will have eaten 180 calories. How do I keep a food log? Immediately after each meal, record the following information in your food log: ? What you ate. Don't forget to include toppings, sauces, and other extras on the food. ? How much you ate. This can be measured in cups, ounces, or number of items. ? How many calories each food and drink had. ? The total number of calories in the meal. Keep your food log near you, such as in a small notebook in your pocket, or use a mobile awais or website. Some programs will calculate calories for you and show you how many calories you have left for the day to meet your goal. What are some calorie counting tips? ? Use your calories on foods and drinks that will fill you up and not leave (more content not included)... Normal [facility] Urology Office/Clinic Noteon 05-19-2022 Urology Office/Clinic Note Chief Complaint 6 month f/u with PSA HPI Staff Pt is here for 6 month f/u with PSA. Previous dx of prostate cancer (ACTIVE SURVEILLANCE) and BPH with urinary obstruction. Current PSA done 05/16/22 is 3.63 and previous done 11/29/20 was 3.75. Dysuria: no Incomplete bladder emptying: no Hematuria: a couple of weeks ago he had clots and blood but it cleared up over night Frequency: no Urgency: no Nocturia: pt states he no longer has to get up at night Stream: good stream no straining Leaking: no Post void dripping: no Wearing pads/ Depends: no Urge incontinence: no Stress incontinence: no Incontinence without Sensory Awareness: no Abdominal pain: no Flank pain: no Sexual complaints: no History of Present Illness Pt is here for 6 month follow up w/PSA due to Prostate Cancer Reviewed UA and PSA Pt has no associated symptoms, no fever, no chills, no flank pain. I have reviewed the previous health record information and history for this patient from Dr. Briggs Review of Systems PHQ Score Initial Depression Screen Score: 0 ROS - Provider Constitutional: denies weight loss, denies hot flashes. Eyes: denies eye problems. Gastrointestinal: denies nausea, denies vomiting. Cardiovascular: denies chest pain or angina. Integumentary: no dryness Musculoskeletal: denies musculoskeletal symptoms. ENMT: denies otolaryngeal symptoms. Respiratory: no shortness of breath. Heme/Lymph: denies easy bleeding tendency, denies easy bruising tendency. Psychiatric: no confusion, no anxiety. Genitourinary: denies dysuria, mild hematuria, denies discharge, denies urinary frequency, denies urinary hesitancy, denies nocturia, denies incontinence, denies genital sores, denies decreased libido, and denies erectile dysfunction. Physical Exam Vitals & Measurements HR: 59(Peripheral) RR: 16 BP: 117/66 HT: 176 cm HT: 176.0 cm WT: 115 kg WT: 115.0 kg BMI: 37.13 General Appearance: alert, no distress, well nourished, well developed male. Genitourinary: Prostate: normal prostate, estimated weight 40 gms, no hard nodule observed. Assessment/Plan Will return for follow up in 6 months w/PSA 1. Prostate cancer (C61: Malignant neoplasm of prostate) Pt will continue in Active Surveillance. Pt first Dx on Pathology of [facility]-03/22/2020 Pt's PSA is 3.63, decreased slightly from 3.75 2. Chronic prostatitis (N41.1: Chronic prostatitis) Pt has recently been treated by ER for infection 3. BPH with urinary obstruction (N40.1: Benign prostatic hyperplasia with lower urinary tract symptoms) Pt is not currently on any prostate medications. good stream. empties well. voids q2-3 hours during the day. Pt is not having any bothersome urinary symptoms. 4. Kidney stones (N20.0: Calculus of kidney) Pt's CT Scan showed 2 non-obstructing Lt Kidney Stones; largest is 4mm Other obstructive and reflux uropathy (N13.8: Other obstructive and reflux uropathy) Follow-up With When Contact Information ANAHI MCDONALD, DELANEY Conti In 6 months [facility] [place] [address] Business (1) Additional Instructions: w/PSA Patient Education Prostatitis, [id number] Calorie Counting for Weight Loss Carey Willett personally scribed for Dr. Briggs on 05/19/2022 16:34:19. . Documentation recorded by the scribe, Carey Gonzalez, accurately reflects the services(s) I performed and decisions made by me. Authenticated by Dr. Briggs on 05/19/2022 16:36:31. Problem List/Past Medical History Ongoing Atrial flutter BMI 36.0-36.9,adult BPH with urinary obstruction Chronic prostatitis Chronic systolic heart failure Gastric ulcer History of kidney stones Hypertension Iron deficiency anemia following bariatric surgery Kidney stones Murmur Non-ischemic cardiomyopathy Non-sustained ventricular tachycardia Paroxysmal ventricular tachycardia Prostate cancer Right BB block Severe pulmonary hypertension Venous insufficiency of lower extremity Historical Anemia Procedure/Surgical History Colonoscopy (12/18/2021), EGD - Esophagogastroduodenoscopy (12/18/2021), MRI-US fusion guided transrectal biopsy of prostate (11/14/2021), Transrectal biopsy of prostate using ultrasound (US) guidance (03/27/2021), TURP - Transurethral resection of prostate (03/22/2020), Cystoscope (01/12/2017), Gastric bypass operation (1999), Appendectomy, Cardiac catheterization, Cholecystectomy, Colonoscopy, History of cardiac radiofrequency ablation, Lithotripsy, Repair of umbilical hernia. Medications aspirin, 81 mg atorvastatin 40 mg Tab, Oral, Daily calcium carbonate 500 mg Chew Tab, 500 mg= 1 tab(s), Chewed, Daily Iron Chews, 1, Chewed, Daily lisinopril 5 mg Tab, 5 mg= 1 tab(s), Oral, Daily metoprolol 25 mg ER Tab, 25 mg= 1 tab(s), Oral, Daily Multi Vitamin+ Allergies No Known Allergies Social History Alcohol Current, Beer, Wine, Daily, (more content not included)... Normal [facility] Comment on above: Result Comment: Electronically Signed By : Puneet BRIGGS MD\.br\Date and Time Signed: 05/19/22 16:36 EDT\.br\Electronically Co-Signed By: Carey Gonzalez\.br\Date and Time Co-Signed: 05/19/22 16:34 EDT LIPID PROFILEon 05-16-2022 CHOL-HDL RATIO NORM SEE BELOW Normal [facility] Comment on above: Result Comment: 3.3 - 4.4 LOW RISK 4.4 - 7.1 AVERAGE RISK 7.1 - 11.0 MODERATE RISK >11.0 HIGH RISK Performed By: #### C BC #### [facility] [address] [address] [address] Santhosh Francois Cholesterol [Mass/Vol] 58 mg/dL Normal <=200 [facility] Comment on above: Performed By: #### CBC #### [facility] [address] [address] [address] Santhosh Francois Cholesterol in HDL [Mass/Vol] 38 mg/dL Critically low 40-60 [facility] Comment on above: Performed By: #### CBC #### [facility] [address] [address] [address] Santhosh Francois Cholesterol in LDL [Mass/Vol] 14.0 mg/dL Normal [facility] Comment on above: Performed By: #### CBC #### [facility] [address] [address] [address] Santhosh Francois Cholesterol.tot al/Cholesterol in HDL [Mass ratio] 1.5 {ratio} Normal [facility] Comment on above: Performed By: #### CBC #### [facility] [address] [address] [address] Santhosh Francois HDL NORMAL > or = 60 mg/dl - LO W CARDIOVASCULAR RISK <40 mg/dl - HIGH CARDIOVASCULAR RISK Normal [facility] Comment on above: Performed By: #### CBC #### [facility] [address] [address] [address] Santhosh Francois LDL CALC NORMAL SEE BELOW Normal [facility] Comment on above: Result Comment: <100 mg/dl OPTIMAL 100 - 129 mg/dl NEAR OR ABOVE OPTIMAL 130 - 159 mg/dl BORDERLINE HIGH 160 - 189 mg/dl HIGH >190 mg/dl VERY HIGH Performed By: #### C BC #### [facility] [address] [address] [address] Santhosh Frnacois Triglyceride [Mass/Vol] 30 mg/dL Normal <=150 [facility] Comment on above: Performed By: #### CBC #### [facility] [address] [place] [address] Dr. Santhosh Francois VLDL CALC 6.0 mg/dL Normal [facility] Comment on above: Performed By: #### CBC #### [facility] [address] [place] [address] Dr. Santhosh Francois PROF 14(COMP METB)on 022 Albumin [Mass/Vol] 3.6 g/dL Normal 3.4-5.0 [facility] Comment on above: Performed By: #### CBC #### [facility] [address] [place] [address] Dr. Santhosh Francois Albumin/Globuli n [Mass ratio] 1.1 {ratio} Normal [facility] Comment on above: Performed By: #### CBC #### [facility] [address] [place] [address] Dr. Santhosh Francois ALP [Catalytic activity/Vol] 145 U/L Critically high 46-116 [facility] Comment on above: Performed By: #### CBC #### [facility] [address] [place] [address] Dr. Santhosh Francois ALT [Catalytic activity/Vol] 102 U/L Critically high 16-63 [facility] Comment on above: Performed By: #### CBC #### [facility] [address] [place] [address] Dr. Santhosh Francois Anion gap [Moles/Vol] 12.7 mmol/L Normal [facility] Comment on above: Performed By: #### CBC #### [facility] [address] [place] [address] Dr. Santhosh Francois AST [Catalytic activity/Vol] 68 U/L Critically high 15-37 [facility] Comment on above: Performed By: #### CBC #### [facility] [address] [place] [address] Dr. Santhosh Francois Bilirubin [Mass/Vol] 1.0 mg/dL Normal 0.2-1.0 [facility] Comment on above: Performed By: #### CBC #### [facility] [address] [address] [address] Santhosh Francois Calcium [Mass/Vol] 8.0 mg/dL Critically low 8.5-10.1 [facility] Comment on above: Performed By: #### CBC #### [facility] [address] [address] [address] Santhosh Francois Chloride [Moles/Vol] 111 mmol/L Critically high 98-107 [facility] Comment on above: Performed By: #### CBC #### [facility] [address] [address] [address] Santhosh Francois CO2 [Moles/Vol] 20.6 mmol/L Critically low 21.0-32.0 [facility] Comment on above: Performed By: #### CBC #### [facility] [address] [address] [address] Santhosh Francois Creatinine [Mass/Vol] 0.96 mg/dL Normal 0.70-1.30 [facility] Comment on above: Performed By: #### CBC #### [facility] [address] [address] [address] Santhosh Francois EGFR-AF RWANDAN >60 Normal >=60 [facility] Comment on above: Performed By: #### CBC #### [facility] [address] [address] [address] Santhosh Francois EGFR-NON AF RWANDAN >60 Normal >=60 [facility] Comment on above: Performed By: #### CBC #### [facility] [address] [address] [address] Santhosh Francois Globulin (S) [Mass/Vol] 3.2 g/dL Normal [facility] Comment on above: Performed By: #### CBC #### [facility] [address] [address] [address] Santhosh Francois Glucose [Mass/Vol] 88 mg/dL Normal 74-106 [facility] Comment on above: Performed By: #### CBC #### [facility] [address] [address] [address] Santhosh Francois Potassium [Moles/Vol] 4.3 mmol/L Normal 3.5-5.1 [facility] Comment on above: Performed By: #### CBC #### [facility] [address] [place] [address] Dr. Santhosh Francois Protein [Mass/Vol] 6.8 g/dL Normal 6.4-8.2 [facility] Comment on above: Performed By: #### CBC #### [facility] [address] [address] [address] Santhosh Francois Sodium [Moles/Vol] 140 mmol/L Normal 136-145 [facility] Comment on above: Performed By: #### CBC #### [facility] [address] [place] [address] Dr. Santhosh Francois Urea nitrogen [Mass/Vol] 26.0 mg/dL Critically high 7.0-18.0 [facility] Comment on above: Performed By: #### CBC #### [facility] [address] [place] [address] Dr. Santhosh Francois Urea nitrogen/Creati nine [Mass ratio] 27.1 mg/mg Normal [facility] Comment on above: Performed By: #### CBC #### [facility] [address] [place] [address] Dr. Santhosh Francois ED Note-Physicianon 05-07-20 ED Note-Physician [id number]#[id number]:127 Normal [facility] RAD - CT Reporton 05-06-2022 RAD - CT Report [id number]:127 Normal [facility] CBC AUTO DIFFon 04-30-2022 BASO # 0.0 103/ul Normal 0.0-0.1 [facility] Comment on above: Performed By: #### CBC #### [facility] [address] [place] [address] Dr. Santhosh Francois Basophils/100 WBC (Bld) 0.5 % Normal 0.2-2.0 [facility] Comment on above: Performed By: #### CBC #### [facility] [address] [address] [address] Santhosh Francois EO # 0.2 103/ul Normal 0.0-0.7 [facility] Comment on above: Performed By: #### CBC #### [facility] [address] [place] [address] Dr. Santhosh Francois Eosinophils/100 WBC (Bld) 2.9 % Normal 0.9-7.0 [facility] Comment on above: Performed By: #### CBC #### [facility] [address] [place] [address] Dr. Santhosh Francois Erythrocyte distribution width (RBC) [Ratio] 14.9 % Normal 11.0-15.0 [facility] Comment on above: Performed By: #### CBC #### [facility] [address] [place] [address] Dr. Santhosh Francois Hematocrit (Bld) [Volume fraction] 39.1 % Critically low 42.0-54.0 [facility] Comment on above: Performed By: #### CBC #### [facility] [address] [place] [address] Dr. Santhosh Francois Hemoglobin (Bld) [Mass/Vol] 12.2 g/dL Critically low 14.0-18.0 [facility] Comment on above: Performed By: #### CBC #### [facility] [address] [place] [address] Dr. Santhosh Francois IG # 0.01 10e3/ul Normal 0.00-0.03 [facility] Comment on above: Performed By: #### CBC #### [facility] [address] [place] [address] Dr. Santhosh Francois IG % 0.2 % Normal 0.0-0.5 [facility] Comment on above: Performed By: #### CBC #### [facility] [address] [place] [address] Dr. Santhosh Francois LYMPH # 2.0 103/ul Normal 1.2-3.8 [facility] Comment on above: Performed By: #### CBC #### [facility] [address] [place] [address] Dr. Santhosh Francois Lymphocytes/100 WBC (Bld) 32.6 % Normal 20.5-60.0 [facility] Comment on above: Performed By: #### CBC #### [facility] [address] [place] [address] Dr. Santhosh Francois MANUAL DIFF REQ NO Normal [facility] Comment on above: Performed By: #### CBC #### [facility] [address] [place] [address] Dr. Santhosh Francois MCH (RBC) [Entitic mass] 29.9 pg Normal 25.9-34.0 [facility] Comment on above: Performed By: #### CBC #### [facility] [address] [place] [address] Dr. Santhosh Francois MCHC (RBC) [Mass/Vol] 31.2 g/dL Normal 29.9-35.2 [facility] Comment on above: Performed By: #### CBC #### [facility] [address] [place] [address] Dr. Santhosh Francois MCV (RBC) [Entitic vol] 95.8 fL Critically high 80.0-94.0 [facility] Comment on above: Performed By: #### CBC #### [facility] [address] [place] [address] Dr. Santhosh Francois MONO # 0.5 103/ul Normal 0.3-0.8 [facility] Comment on above: Performed By: #### CBC #### [facility] [address] [place] [address] Dr. Santhosh Francois Monocytes/100 WBC (Bld) 7.9 % Normal 1.7-12.0 [facility] Comment on above: Performed By: #### CBC #### [facility] [address] [place] [address] Dr. Santhosh Francois NEUT # 3.5 103/ul Normal 1.4-6.5 [facility] Comment on above: Performed By: #### CBC #### [facility] [address] [place] [address] Dr. Santhosh Francois Neutrophils/100 WBC (Bld) 55.9 % Normal 43.0-75.0 [facility] Comment on above: Performed By: #### CBC #### [facility] [address] [address] [address] Santhosh Francois Platelet mean volume (Bld) [Entitic vol] 10.6 fL Normal 9.5-13.5 [facility] Comment on above: Performed By: #### CBC #### [facility] [address] [place] [address] Dr. Santhosh Francois PLT 125 103/ul Critically low 150-450 [facility] Comment on above: Performed By: #### CBC #### [facility] [address] [place] [address] Dr. Santhosh Francois RBC 4.08 106/ul Critically low 4.70-6.10 [facility] Comment on above: Performed By: #### CBC #### [facility] [address] [place] [address] Dr. Santhosh Francois WBC 6.2 103/ul Normal 4.0-11.0 [facility] Comment on above: Performed By: #### CBC #### [facility] [address] [place] [address] ABD/PELVIS WO CONon 04-30 CT ABD/PELVIS WO CON EXAMINATION: CT ABD/PELVIS WO CON HISTORY: Blood in urine COMPARISON: No relevant comparison available. TECHNIQUE: Axial, Coronal, and Sagittal images were created without IV contrast. Dose reduction techniques were achieved by using automated exposure control and/or adjustment of mA and/or kV according to patient size and/or use of iterative reconstruction technique. FINDINGS: LUNG BASES: No visible pulmonary or pleural disease. LIVER: No enlargement, atrophy, suspicious density, or significant focal lesion. BILIARY: Cholecystectomy. PANCREAS: No lesion, fluid collection, or abnormal duct dilatation. SPLEEN: No enlargement or focal lesion. ADRENALS: No mass or enlargement. KIDNEYS: Small cyst within right and left kidney. 2 nonobstructing stones within left kidney, largest is 4 mm. BOWEL/MESENTERY: Prior gastric surgery. No visible mass, obstruction, or bowel wall thickening. AORTA/VASCULAR: No aneurysm or dissection. RETROPERITONEUM: No mass or adenopathy. LYMPH NODES: No adenopathy. URINARY BLADDER: No visible focal wall thickening, lesion, or calculus. PELVIC ORGANS: No visible mass. Pelvic organs appropriate for patient age. ABDOMINAL WALL: Numerous surgical anchors within the anterior abdominal wall. No mass or hernia. BONES: No bony lesion or fracture. OTHER: Negative. IMPRESSION: 1. Nonobstructing left nephrolithiasis. No ureteral stones, bladder stones, or findings to suggest recently passed stone. 2. Small lesion within the right and left kidney suspected represent benign cysts; but evaluation is limited by lack of IV contrast. Consider follow-up nonemergent CT of the abdomen pelvis with IV and oral contrast. 3. No appreciable bladder abnormality on this noncontrast study. Electronically authenticated by: CASSIDY DILLON Date: 2022-04-30 18:05 Normal [facility] CULTURE URINEon 04-30-2022 CULTURE URINE Culture Observations : NO GROWTH. Normal [facility] Comment on above: Performed By: #### URCX #### [facility] [address] [place] [address] Dr. Santhosh Francois ER URINE PROFILEon 2 Bilirubin Ql (U) Unable to perform testing due to color interference. Abnormal NEGATIVE [facility] Comment on above: Performed By: #### MICHELE CHENGRO #### [facility] [address] [place] [address] Dr. Santhosh Francois Clarity (U) TURBID Abnormal CLEAR [facility] Comment on above: Performed By: #### MICHELE CHENGRO #### [facility] [address] [place] [address] Dr. Santhosh Francois Color (U) RED Abnormal YELLOW [facility] Comment on above: Performed By: #### SKYLAR UMCARLEERO #### [facility] [address] [place] [address] Dr. Santhosh PALACIOS A micrscopic examina tion will be performed if indicated. Normal [facility] Comment on above: Performed By: #### SKYLAR UMCARLEERO #### [facility] [address] [place] [address] Dr. Santhosh Francois Glucose Ql (U) Unable to perform te sting due to color interference. Abnormal NEGATIVE [facility] Comment on above: Performed By: #### NICOL CHENG #### [facility] [address] [place] [address] Dr. Santhosh Francois Hemoglobin Ql (U) Unable to perform testing due to color interference. Abnormal NEGATIVE [facility] Comment on above: Performed By: #### NICOL CHENG #### [facility] [address] [place] [address] Dr. Santhosh Francois Ketones Ql (U) Unable to perform te sting due to color interference. Abnormal NEGATIVE [facility] Comment on above: Performed By: #### NICOL CHENG #### [facility] [address] [place] [address] Dr. Santhosh Francois LEUKOCYTES Unable to perform te sting due to color interference. Abnormal NEGATIVE [facility] Comment on above: Performed By: #### NICOL CHENG #### [facility] [address] [place] [address] Dr. Santhosh Francois Nitrite Ql (U) Unable to perform te sting due to color interference. Abnormal NEGATIVE [facility] Comment on above: Performed By: #### NICOL CHENG #### [facility] [address] [place] [address] Dr. Santhosh Francois pH (U) 6.0 [pH] Normal 5-9 [facility] Comment on above: Performed By: #### NICOL CHENG #### [facility] [address] [place] [address] Dr. Santhosh Francois SPEC GRAVITY 1.025 Normal 1.005-<=1.02 5 [facility] Comment on above: Performed By: #### NICOL CHENG #### [facility] [address] [place] [address] Dr. Santhosh Francois UA PROTEIN Unable to perform te sting due to color interference. Normal NEGATIVE/ TRACE [facility] Comment on above: Performed By: #### NICOL CHENG #### [facility] [address] [place] [address] Dr. Santhosh Francois UR MICRO IND INDICATED Normal [facility] Comment on above: Performed By: #### NICOL CHENG #### [facility] [address] [place] [address] Dr. Santhosh Francois UROBILINOGEN Unable to perform te sting due to color interference. Normal 0.2 - 1.0 [facility] Comment on above: Performed By: #### NICOL CHENG #### [facility] [address] [place] [address] Dr. Santhosh Francois PROF CHEM 8 (BAS METB)on Anion gap [Moles/Vol] 12.6 mmol/L Normal [facility] Comment on above: Performed By: #### BMP #### [facility] [address] [place] [address] Dr. Santhosh Francois Calcium [Mass/Vol] 7.7 mg/dL Critically low 8.5-10.1 [facility] Comment on above: Performed By: #### BMP #### [facility] [address] [place] [address] Dr. Santhosh Francois Chloride [Moles/Vol] 114 mmol/L Critically high 98-107 [facility] Comment on above: Performed By: #### BMP #### [facility] [address] [place] [address] Dr. Santhosh Francois CO2 [Moles/Vol] 21.1 mmol/L Normal 21.0-32.0 [facility] Comment on above: Performed By: #### BMP #### [facility] [address] [place] [address] Dr. Santhosh Francois Creatinine [Mass/Vol] 1.12 mg/dL Normal 0.70-1.30 [facility] Comment on above: Performed By: #### BMP #### [facility] [address] [place] [address] Dr. Santhosh Francois EGFR-AF RWANDAN >60 Normal >=60 [facility] Comment on above: Performed By: #### BMP #### [facility] [address] [place] [address] Dr. Santhosh Francois EGFR-NON AF RWANDAN >60 Normal >=60 [facility] Comment on above: Performed By: #### BMP #### [facility] [address] [address] [address] Santhosh Francois Glucose [Mass/Vol] 90 mg/dL Normal 74-106 [facility] Comment on above: Performed By: #### BMP #### [facility] [address] [address] [address] Santhosh Francois Potassium [Moles/Vol] 3.7 mmol/L Normal 3.5-5.1 [facility] Comment on above: Performed By: #### BMP #### [facility] [address] [address] [address] Santhosh Francois Sodium [Moles/Vol] 144 mmol/L Normal 136-145 [facility] Comment on above: Performed By: #### BMP #### [facility] [address] [place] [address] Dr. Santhosh Francois Urea nitrogen [Mass/Vol] 23.0 mg/dL Critically high 7.0-18.0 [facility] Comment on above: Performed By: #### BMP #### [facility] [address] [place] [address] Dr. Santhosh Francois Urea nitrogen/Creati nine [Mass ratio] 20.5 mg/mg Normal [facility] Comment on above: Performed By: #### BMP #### [facility] [address] [place] [address] Dr. Santhosh Francois URINE MICROSCOPIC ONLYon BACTERIA NONE SEEN Normal NONE SEEN [facility] Comment on above: Performed By: #### ERUVandana UMICRO #### [facility] [address] [address] [address] Santhosh Francois Bacteria identified Cx Nom (U) NOT INDICATED Normal [facility] Comment on above: Performed By: #### ERUR UMICRO #### [facility] [address] [address] [address] Santhosh Francois CAST NONE SEEN Normal NONE SEEN [facility] Comment on above: Performed By: #### ERUR, UMICRO #### [facility] [address] [place] [address] Dr. Santhosh Francois Crystals LM Nom (Urine sed) NONE SEEN Normal NONE SEEN [facility] Comment on above: Performed By: #### DENTON CHENGICRO #### [facility] [address] [place] [address] Dr. Santhosh Francois Epithelial cells LM Ql (Urine sed) NONE SEEN Normal NONE SEEN /RARE [facility] Comment on above: Performed By: #### MICHELE CHENGRO #### [facility] [address] [place] [address] Dr. Santhosh Francois MUCOUS NONE SEEN Normal NONE SEEN [facility] Comment on above: Performed By: #### MICHELE CHENGRO #### [facility] [address] [place] [address] Dr. Santhosh Francois RBC (U) [#/Vol] /uL Abnormal 0-2 [facility] Comment on above: Performed By: #### MICHELE CHENGRO #### [facility] [address] [place] [address] Dr. Santhosh Francois WBC 10-20 Abnormal NONE SEEN [facility] Comment on above: Performed By: #### MICHELE CHENGRO #### [facility] [address] [place] [address] Dr. Santhosh Francois CBC AUTO DIFFon 03-07-2022 BASO # 0.1 103/ul Normal 0.0-0.1 [facility] Comment on above: Performed By: #### CBC #### [facility] [address] [place] [address] Dr. Santhosh Francois Basophils/100 WBC (Bld) 0.8 % Normal 0.2-2.0 [facility] Comment on above: Performed By: #### CBC #### [facility] [address] [place] [address] Dr. Santhosh Francois EO # 0.1 103/ul Normal 0.0-0.7 [facility] Comment on above: Performed By: #### CBC #### [facility] [address] [place] [address] Dr. Santhosh Francois Eosinophils/100 WBC (Bld) 1.9 % Normal 0.9-7.0 [facility] Comment on above: Performed By: #### CBC #### [facility] [address] [place] [address] Dr. Santhosh Francois Erythrocyte distribution width (RBC) [Ratio] 16.4 % Critically high 11.0-15.0 [facility] Comment on above: Performed By: #### CBC #### [facility] [address] [place] [address] Dr. Santhosh Francois Hematocrit (Bld) [Volume fraction] 43.0 % Normal 42.0-54.0 [facility] Comment on above: Performed By: #### CBC #### [facility] [address] [place] [address] Dr. Santhosh Francois Hemoglobin (Bld) [Mass/Vol] 13.4 g/dL Critically low 14.0-18.0 [facility] Comment on above: Performed By: #### CBC #### [facility] [address] [place] [address] Dr. Santhosh Francois IG # 0.02 10e3/ul Normal 0.00-0.03 [facility] Comment on above: Performed By: #### CBC #### [facility] [address] [place] [address] Dr. Santhosh Francois IG % 0.3 % Normal 0.0-0.5 [facility] Comment on above: Performed By: #### CBC #### [facility] [address] [place] [address] Dr. Santhosh Francois LYMPH # 1.8 103/ul Normal 1.2-3.8 [facility] Comment on above: Performed By: #### CBC #### [facility] [address] [place] [address] Dr. Santhosh Francois Lymphocytes/100 WBC (Bld) 29.2 % Normal 20.5-60.0 [facility] Comment on above: Performed By: #### CBC #### [facility] [address] [place] [address] Dr. Santhosh Francois MANUAL DIFF REQ NO Normal [facility] Comment on above: Performed By: #### CBC #### [facility] [address] [address] [address] Santhosh Francois MCH (RBC) [Entitic mass] 30.5 pg Normal 25.9-34.0 [facility] Comment on above: Performed By: #### CBC #### [facility] [address] [place] [address] Dr. Santhosh Francois MCHC (RBC) [Mass/Vol] 31.2 g/dL Normal 29.9-35.2 [facility] Comment on above: Performed By: #### CBC #### [facility] [address] [place] [address] Dr. Santhosh Francois MCV (RBC) [Entitic vol] 97.9 fL Critically high 80.0-94.0 [facility] Comment on above: Performed By: #### CBC #### [facility] [address] [place] [address] Dr. Santhosh Francois MONO # 0.4 103/ul Normal 0.3-0.8 [facility] Comment on above: Performed By: #### CBC #### [facility] [address] [place] [address] Dr. Santhosh Francois Monocytes/100 WBC (Bld) 6.3 % Normal 1.7-12.0 [facility] Comment on above: Performed By: #### CBC #### [facility] [address] [place] [address] Dr. Santhosh Francois NEUT # 3.8 103/ul Normal 1.4-6.5 [facility] Comment on above: Performed By: #### CBC #### [facility] [address] [place] [address] Dr. Santhosh Francois Neutrophils/100 WBC (Bld) 61.5 % Normal 43.0-75.0 [facility] Comment on above: Performed By: #### CBC #### [facility] [address] [place] [address] Dr. Santhosh Francois Platelet mean volume (Bld) [Entitic vol] 10.5 fL Normal 9.5-13.5 [facility] Comment on above: Performed By: #### CBC #### [facility] [address] [address] [address] Santhosh Francois PLT 148 103/ul Critically low 150-450 [facility] Comment on above: Performed By: #### CBC #### [facility] [address] [place] [address] Dr. Santhosh Francois RBC 4.39 106/ul Critically low 4.70-6.10 [facility] Comment on above: Performed By: #### CBC #### [facility] [address] [place] [address] Dr. Santhosh Francois WBC 6.2 103/ul Normal 4.0-11.0 [facility] Comment on above: Performed By: #### CBC #### [facility] [address] [place] [address] Dr. Santhosh Francois IRONon 03-07-2022 Iron [Mass/Vol] 125.0 ug/dL Normal 65.0-175.0 [facility] Comment on above: Performed By: #### IRON #### [facility] [address] [place] [address] Dr. Santhosh Francois CBC AUTO DIFFon 12-03-2021 BASO # 0.0 103/ul Normal 0.0-0.1 [facility] Comment on above: Performed By: #### CBC #### [facility] [address] [place] [address] Dr. Santhosh Francois Basophils/100 WBC (Bld) 0.7 % Normal 0.2-2.0 [facility] Comment on above: Performed By: #### CBC #### [facility] [address] [place] [address] Dr. Santhosh Francois EO # 0.2 103/ul Normal 0.0-0.7 [facility] Comment on above: Performed By: #### CBC #### [facility] [address] [place] [address] Dr. Santhosh Francois Eosinophils/100 WBC (Bld) 3.1 % Normal 0.9-7.0 [facility] Comment on above: Performed By: #### CBC #### [facility] [address] [place] [address] Dr. Santhosh Francois Hematocrit (Bld) [Volume fraction] 40.4 % Critically low 42.0-54.0 [facility] Comment on above: Performed By: #### CBC #### [facility] [address] [place] [address] Dr. Santhosh Francois Hemoglobin (Bld) [Mass/Vol] 11.5 g/dL Critically low 14.0-18.0 [facility] Comment on above: Performed By: #### CBC #### [facility] [address] [place] [address] Dr. Santhosh Francois IG # 0.01 10e3/ul Normal 0.00-0.03 [facility] Comment on above: Performed By: #### CBC #### [facility] [address] [place] [address] Dr. Santhosh Francois IG % 0.2 % Normal 0.0-0.5 [facility] Comment on above: Performed By: #### CBC #### [facility] [address] [place] [address] Dr. Santhosh Francois LYMPH # 2.0 103/ul Normal 1.2-3.8 [facility] Comment on above: Performed By: #### CBC #### [facility] [address] [place] [address] Dr. Santhosh Francois Lymphocytes/100 WBC (Bld) 33.9 % Normal 20.5-60.0 [facility] Comment on above: Performed By: #### CBC #### [facility] [address] [place] [address] Dr. Santhosh Francois MANUAL DIFF REQ NO Normal [facility] Comment on above: Performed By: #### CBC #### [facility] [address] [place] [address] Dr. Santhosh Francois MCH (RBC) [Entitic mass] 24.1 pg Critically low 25.9-34.0 [facility] Comment on above: Performed By: #### CBC #### [facility] [address] [place] [address] Dr. Santhosh Francois MCHC (RBC) [Mass/Vol] 28.5 g/dL Critically low 29.9-35.2 [facility] Comment on above: Performed By: #### CBC #### [facility] [address] [place] [address] Dr. Santhosh Francois MCV (RBC) [Entitic vol] 84.5 fL Normal 80.0-94.0 [facility] Comment on above: Performed By: #### CBC #### [facility] [address] [place] [address] Dr. Santhosh Francois MONO # 0.4 103/ul Normal 0.3-0.8 [facility] Comment on above: Performed By: #### CBC #### [facility] [address] [place] [address] Dr. Santhosh Francois Monocytes/100 WBC (Bld) 7.7 % Normal 1.7-12.0 [facility] Comment on above: Performed By: #### CBC #### [facility] [address] [place] [address] Dr. Santhosh Francois NEUT # 3.1 103/ul Normal 1.4-6.5 [facility] Comment on above: Performed By: #### CBC #### [facility] [address] [place] [address] Dr. Santhosh Francois Neutrophils/100 WBC (Bld) 54.4 % Normal 43.0-75.0 [facility] Comment on above: Performed By: #### CBC #### [facility] [address] [place] [address] Dr. Santhosh Francois Platelet mean volume (Bld) [Entitic vol] 10.0 fL Normal 9.5-13.5 [facility] Comment on above: Performed By: #### CBC #### [facility] [address] [place] [address] Dr. Santhosh Francois PLT 191 103/ul Normal 150-450 [facility] Comment on above: Performed By: #### CBC #### [facility] [address] [place] [address] Dr. Santhosh Francois RBC 4.78 106/ul Normal 4.70-6.10 [facility] Comment on above: Performed By: #### CBC #### [facility] [address] [place], [place] [address] Dr. Santhosh Francois WBC 5.8 103/ul Normal 4.0-11.0 [facility] Comment on above: Performed By: #### CBC #### [facility] [address] [place], [place] [address] Dr. Santhosh Francois MR prostate wo/w conon 09-17 MR prostate wo/w con [facility] [place] [address] [place] [address] MRI Report Signed Patient: Shabnam Burgess MR#: [id number] : 1955 Acct:[id number] Age/Sex: 65 / M ADM Date: 09/16/21 Loc: Room: Type: [facility] Attending Dr: Puneet Briggs MD Ordering Provider: Puneet Briggs MD Date of Service: 09/16/21 MR/MR prostate wo/w con: ELEVATED PSA Copies to: Puneet Briggs MD MRI OF THE PROSTATE GLAND WITHOUT AND WITH CONTRAST INDICATIONS: Elevated prostate specific antigen. PSA 2.75. Evaluate for prostate cancer. TECHNIQUE: MRI of the prostate gland with and without 20 ML ProHance. Comparison: None PI-RADS v2 Classification* PI-RADS 5 Highly Suspicious for Malignancy PI-RADS 4 Probably Malignant PI-RADS 3 Indeterminate PI-RADS 2 Probably Benign PI-RADS 1 Most Probably Benign *Based Upon ACR Guidelines September 2014. FINDINGS: Status post TURP. Prostate Gland Size: The prostate gland measures 4.1 cm AP x 4.6 cm transverse x 6.0 cm craniocaudad consistent with a prostatic gland volume of 58.8 cc. PSA Density: 0.0467 ng/mL/cc. Central Zone: No tumor-suspicious regions are identified in the central zone. Transition Zone: There is advanced nodular enlargement and inhomogeneous signal intensity throughout the transition zone most commonly due to benign prostatic hyperplasia. There is a small tumor suspicious region, PI-RADS 4, involving the anterior most aspect of the peripheral zone in the 11 o'clock position. This is in the mid gland. This measures 8 x 6 x 7 mm. This is best visualized on image 25 series 5, image 27 series 6 and image 26 series 800. This demonstrates non- circumscribed moderate T2 shortening and evidence of restricted diffusion. Peripheral Zone: Mild diffuse patchy low T2 signal within the peripheral zone. This could represent mild prostatitis. No tumor-suspicious regions are identified in the peripheral zone. Extraprostatic Extension: None. Seminal Vesicle Invasion: None. Pelvic Lymphadenopathy: None. Urinary Bladder: The urinary bladder wall is normal in thickness without evidence of a mass. Rectosigmoid Colon: Mild rectal wall thickening. This could represent component of colitis. There is no evidence of diverticulitis or diverticulosis. No rectosigmoid mass is identified. No rectal hemorrhoids are seen. No inguinal hernia is identified. Pelvic Osseous Structures: Left greater trochanteric bursitis. There is no evidence of osseous metastatic disease at the level of the prostate gland. IMPRESSION: 1. The prostate gland volume equals 58.8 cc. 2. The PSA density equals 0.046 ng/mL/cc. 3. There is advanced nodular enlargement and inhomogeneous signal intensity throughout the transition zone most commonly due to benign prostatic hyperplasia. 4. Small tumor suspicious region, PI-RADS 4, involving the anterior most aspect of the peripheral zone in the 11 o'clock position. This is in the mid gland. 5. There is no evidence of extraprostatic extension of prostate cancer, seminal vesicle invasion or pelvic lymphadenopathy. 6. Mild diffuse patchy low T2 signal within the peripheral zone. This could represent mild prostatitis. No tumor-suspicious regions are identified in the peripheral zone. Electronically signed on Sep 17, 2021 10:46:46 AM COT by: Tomy Garza MD Diplomate, [place] [employer] Report Completed: Sep 17, 2021 10:46:46 AM COT This transmission is proprietary, privileged and confidential. It is intended to be communication only for the use of the addressee; access to this message by anyone else is unaut Transcribed By: 09/17/21 1348 Dictated By: NON STAFF 09/17/21 1046 Signed By: 09/17/21 1349 Normal [facility] Blood Urea Nitrogenon 2020 Urea nitrogen [Mass/Vol] 21 mg/dL Normal - [facility] Comment on above: Order Comment: STAT FOR MRI Performed By: #### C REAT, BUN #### [facility] [address] [place], [place] [id number] [facility] Creatinineon 09-03-2021 Creatinine [Mass/Vol] 1.01 mg/dL Normal 0.64-1.27 [facility] Comment on above: Order Comment: STAT FOR MRI Performed By: #### C REAT, BUN #### [facility] [address] [place] [address] Creatinine Clr Calc Pharmacy 90.06 [facility] Comment on above: Order Comment: STAT FOR MRI Result Comment: PERF ORMED BY: [place] [address] PATHOLOGIST [employer] TONNY ZHOU M.D. Performed By: #### C REAT, BUN #### [address] Estimated GFR ( Teresita > 60 [facility] Comment on above: Order Comment: STAT FOR MRI Result Comment: GFR estimated reference range: According to KDOQI guidelines, <60 ml/min/1.73m2 is sufficient to diagnose a patient with chronic kidney disease. Performed By: #### C REAT, BUN #### [facility] [address] [place] [address] Estimated GFR (Non- Am > 60 [facility] Comment on above: Order Comment: STAT FOR MRI Performed By: #### C REAT, BUN #### [facility] [address] [place] [address] [place] Ironon 04-15-2019 Iron [Mass/Vol] 22 ug/dL Low 59-158 [facility] Comment on above: Performed By: #### CP #### [facility] [address] [place] [address] [employer] Agent: Frank Mercado MD #### B12, FE #### [facility] [address] [place], [place] [id number] [employer] Agent: Rainer Araujo MD Vitamin B12on 04-15-2019 Cobalamin (Vitamin B12) [Mass/Vol] 1062 pg/mL Normal 232-1245 [facility] Comment on above: Performed By: #### CP #### [facility] [address] [place] [address] [employer] Agent: Frank Mercado MD #### B12, FE #### [address] [address] [employer] Agent: Rainer Araujo MD Comp Metabolic Profon 2018 Albumin [Mass/Vol] 4.2 g/dL Normal 3.5-5.2 [facility] Comment on above: Performed By: #### CP #### [facility] [address] [place] [address] ( Exit [employer] Agent: Frank Mercado MD #### B12, FE #### [address] [address] [employer] Agent: Rainer Araujo MD Albumin/Globuli n [Mass ratio] 1.6 {ratio} Normal 1.0-2.5 [facility] Comment on above: Performed By: #### CP #### [facility] [address] [place] [address] ( Exit [employer] Agent: Frank Mercado MD #### B12, FE #### [address] [address] [employer] Agent: Rainer Araujo MD Alkaline Phos 120 U/L Normal 40-129 [facility] Comment on above: Performed By: #### CP #### [facility] [address] [place], [place] [phone] [employer] Agent: Frank Mercado MD #### B12, FE #### [address] [address] [employer] Agent: Rainer Araujo MD Bilirubin Ql (U) 0.72 mg/dL Normal 0.3-1.2 [facility] Comment on above: Performed By: #### CP #### [facility] [address] [place], [place] [id number] [employer] Agent: Frank Mercado MD #### B12, FE #### [facility] [address] [place] [address] Exit [employer] Agent: Rainer Araujo MD Protein [Mass/Vol] 6.8 g/dL Normal 6.4-8.3 [facility] Comment on above: Performed By: #### CP #### [address] [place], [place] [id number] [employer] Agent: Frank Mercado MD #### B12, FE #### [address] [place] [address] Exit [employer] Agent: Rainer Araujo MD (cont.) [facility] Comment on above: Result Comment: Average GFR for 60-69 ye ars old: 85 mL/min/1.73sq m Chronic Kidney Disease: <60 mL/min/1.73sq m Kidney failure: <15 mL/min/1.73sq m eGFR calculated using average adult body mass. Additional eGFR calculator available at: http://www.DNA13/multiple_crcl_2011.htm Performed By: #### C P #### [address] [place], [place] [id number] [employer] Agent: Frank Mercado MD #### B12, FE #### [facility] [address] [place] [address] [employer] Agent: Rainer Araujo MD ALT [Catalytic activity/Vol] 29 U/L Normal 5-41 [facility] Comment on above: Performed By: #### CP #### [address] [place], [place] [id number] [employer] Agent: Frank Mercado MD #### B12, FE #### [facility] [address] [place] [address] [employer] Agent: Rainer Araujo MD Anion gap [Moles/Vol] 10 mmol/L Normal [facility] Comment on above: Performed By: #### CP #### [facility] [address] [place], [place] [phone] [employer] Agent: Frank Mercado MD #### B12, FE #### [address] [place] [address] Exit [employer] Agent: Rainer Araujo MD AST [Catalytic activity/Vol] 26 U/L Normal <40 [facility] Comment on above: Performed By: #### CP #### [facility] [address] [place], [place] [phone] [employer] Agent: Frank Mercado MD #### B12, FE #### [address] [address] [employer] Agent: Rainer Araujo MD BUN/CRE Ratio 24 High 9-20 [facility] Comment on above: Performed By: #### CP #### [facility] [address] [place], [place] [phone] Exit [employer] Agent: Frank Mercdao MD #### B12, FE #### [address] [address] [employer] Agent: Rainer Araujo MD Calcium [Mass/Vol] 8.2 mg/dL Low 8.6-10.4 [facility] Comment on above: Performed By: #### CP #### [facility] [address] [place] [address] [employer] Agent: Frank Mercado MD #### B12, FE #### [address] [address] [employer] Agent: Rainer Araujo MD Chloride [Moles/Vol] 115 mmol/L High 98-107 [facility] Comment on above: Performed By: #### CP #### [facility] [address] [place] [address] [place], [place] [address] [employer] Agent: Frank Mercado MD #### B12, FE #### [facility] [address] [place] [address] Exit [employer] Agent: Rainer Araujo MD CO2 [Moles/Vol] 17 mmol/L Low 20-31 [facility] Comment on above: Performed By: #### CP #### [facility] [address] [place] [address] [place] [address] Exit [employer] Agent: Frank Mercado MD #### B12, FE #### [address] [address] [employer] Agent: Rainer Araujo MD Creatinine [Mass/Vol] 1.11 mg/dL Normal 0.70-1.20 [facility] Comment on above: Performed By: #### CP #### [address] [place] [address] Exit [employer] Agent: Frank Mercado MD #### B12, FE #### [address] [address] [employer] Agent: Rainer Araujo MD GFR, Amer >60 Normal >60 [facility] Comment on above: Performed By: #### CP #### [address] [place] [address] [employer] Agent: Frank Mercado MD #### B12, FE #### [facility] [address] [place] [id number] Exit [employer] Agent: Rainer Araujo MD GFR,non Amer >60 Normal >60 [facility] Comment on above: Performed By: #### CP #### [address] [place] [address] Exit Booth Agent: Frank Mercado MD #### B12, FE #### [facility] [address] [place] [id number] Exit Booth Agent: Rainer Araujo MD Glucose [Mass/Vol] 103 mg/dL High 70-99 [facility] Comment on above: Performed By: #### CP #### [facility] [address] [place], [place] [id number] Exit Booth Agent: Frank Mercado MD #### B12, FE #### [address] [address] Exit Booth Agent: Rainer Araujo MD Potassium [Moles/Vol] 4.1 mmol/L Normal 3.7-5.3 [facility] Comment on above: Performed By: #### CP #### [facility] [address] [place] [address] [place] [place], [place] [id number] Exit Booth Agent: Frank Mercado MD #### B12, FE #### [address] [id number] Exit Booth Agent: Rainer Araujo MD Sodium [Moles/Vol] 142 mmol/L Normal 135-144 [facility] Comment on above: Performed By: #### CP #### [address] [place], [place] [phone] Exit Booth Agent: Frank Mercado MD #### B12, FE #### [address] [id number] Exit Booth Agent: Rainer Araujo MD Staging: Normal [facility] Comment on above: Result Comment: Stage 1: Some kidney dam age normal GFR Stage 2: Mild kidney damage GFR 60-89 Stage 3: Moderate kidney damage GFR 30-59 Stage 4: Severe kidney damage GFR 15-29 Stage 5: Severe kidney damage GFR <15 ESRD - chronic treatment by dialysis or transplant Performed By: #### C P #### [facility] [address] [place], [place] [phone] Exit Booth Agent: Frank Mercado MD #### B12, FE #### [address] [phone] Exit Booth Agent: Rainer Araujo MD Urea nitrogen [Mass/Vol] 27 mg/dL High 8-23 [facility] Comment on above: Performed By: #### CP #### [facility] [address] [place] [place] [address] Exit Booth Agent: Frank Mercado MD #### B12, FE #### [facility] [address] [place], [place] [id number] Exit Booth Agent: Rainer Araujo MD Vital Signs Date Time Vital Sign Value Performing Clinician Facility 11-04-2023 15:54-0500 Body height 177.8 cm Park Paresh [employer] Work Phone: [facility] 11-04-2023 15:54-0500 Body mass index (BMI) [Ratio] 34.47 kg/m2 Park Aichnicolettez [employer]ER Work Phone: [facility] 11-04-2023 15:54-0500 Body temperature 97.11 [degF] Park Aichnicolettez STE[employer]ER Work Phone: [facility] 11-04-2023 15:54-0500 Body weight 108.95 kg Park Aichholz [employer] Work Phone: [facility] 11-04-2023 15:54-0500 Diastolic blood pressure 78 mm[Hg] Park Aichnicolettez STE[employer]ER Work Phone: [facility] 11-04-2023 15:54-0500 Heart rate 66 /min Park Aichholz [employer] Work Phone: [facility] 11-04-2023 15:54-0500 Respiratory rate 18 /min Park Aichholz STEAM[employer]ER Work Phone: [facility] 11-04-2023 15:54-0500 SaO2% (BldA) [Mass fraction] 97 % Park Aichnicolettez STE[employer]ER Work Phone: [facility] 11-04-2023 15:54-0500 Systolic blood pressure 118 mm[Hg] Park Aichnicolettemichelle CHRISTOPHE Work Phone: [facility] 10-19-2023 15:01-0500 Blood Pressure Location Puneet BRIGGS [facility] 10-19-2023 15:01-0500 Diastolic blood pressure 60 mm[Hg] Puneet BRIGGS [facility] 10-19-2023 15:01-0500 Heart rate 64 /min Puneet BRIGGS [facility] 10-19-2023 15:01-0500 Respiratory rate 16 /min Puneet BRIGGS [facility] 10-19-2023 15:01-0500 Systolic blood pressure 109 mm[Hg] Puneet BRIGGS [facility] 04-13-2023 15:59-0400 Blood Pressure Location Puneet BRIGGS [facility] 04-13-2023 15:59-0400 Diastolic blood pressure 80 mm[Hg] Puneet BRIGGS [facility] 04-13-2023 15:59-0400 Heart rate 68 /min Puneet BRIGGS [facility] 04-13-2023 15:59-0400 Respiratory rate 16 /min Puneet BRIGGS [facility] 04-13-2023 15:59-0400 Systolic blood pressure 130 mm[Hg] Puneet BRIGGS [facility] 11-04-2022 14:37-0500 Blood Pressure Location Puneet BRIGGS [facility] 11-04-2022 14:37-0500 Diastolic blood pressure 69 mm[Hg] Puneet BRIGGS [facility] 11-04-2022 14:37-0500 Heart rate 68 /min Puneet BRIGGS [facility] 11-04-2022 14:37-0500 Systolic blood pressure 118 mm[Hg] Puneet BRIGGS [facility] 05-19-2022 15:59-0400 Blood Pressure Location [facility]une[facility] BRIGGS [facility] 05-19-2022 15:59-0400 Diastolic blood pressure 66 mm[Hg] Puneet BRIGGS [facility] 05-19-2022 15:59-0400 Heart rate 59 /min Puneet BRIGGS [facility] 05-19-2022 15:59-0400 Respiratory rate 16 /min Puneet BRIGGS [facility] 05-19-2022 15:59-0400 Systolic blood pressure 117 mm[Hg] Puneet BRIGGS [facility] Encounters Encounter Date Encounter Type Care Provider Facility Start: 11-04-2023 End: 11-04-2023 ambulatory PARK YODER Not Available Start: 11-04-2023 End: 11-04-2023 Office outpatient visit 15 minutes Park Yoder STE[employer]ER Work Phone: [facility] Comment on above: 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 Start: 04-13-2023 End: 04-14-2023 ambulatory Puneet BRIGGS Facility:[facility] [place] Start: 04-13-2023 End: 04-13-2023 Patient encounter procedure [facility]uneet BRIGGS [facility] Start: 03-18-2023 End: 03-19-2023 ambulatory Puneet BRIGGS Facility:[facility] [place] Start: 03-18-2023 End: 03-18-2023 Patient encounter procedure Puneet BRIGGS [facility] Start: 11-24-2022 ambulatory Puneet Muller ty:[facility] [place] Start: 11-21-2022 End: 11-22-2022 ambulatory LILIANA YODER Facility:[facility] Start: 11-04-2022 End: 11-05-2022 ambulatory Puneet BRIGGS Facility:[facility] [place] Start: 11-04-2022 End: 11-04-2022 Patient encounter procedure Puneet BRIGGS [facility] Start: 09-12-2022 End: 09-12-2022 ambulatory DEANNE OBRIEN . Facility:[facility] Start: 05-19-2022 End: 05-20-2022 ambulatory [facility] Start: 05-19-2022 End: 05-19-2022 Patient encounter procedure Puneet BRIGGS [facility] Start: 05-16-2022 End: 05-17-[address] DOCTOR HOWE Facility:[facility] Start: 04-30-2022 End: 04-30-[address] CASSIDY DILLON Facility:[facility] Start: 03-07-2022 End: 03-08-2022 ambulatory LILIANA YODER Facility:[facility] Start: 01-01-2022 End: 01-01-2022 Patient encounter procedure Ary ARTEAGA [facility]/Marie Estrada Start: 12-18-2021 End: 12-18-[address] ARY ARTEAGA . Facility:[facility] Start: 12-14-2021 ambulatory LILIANA YODER Facil ity:[facility] Start: 12-03-2021 End: 12-04-2021 ambulatory LILIANA YODER Facility:[facility] Start: 04-14-2019 End: 04-15-2019 Patient encounter procedure PARK YODER [facility] Start: 01-28-2018 End: 01-29-2018 Ambulatory DEFAULT PHYSICIAN Facility:[facility] Procedures Date Procedure Procedure Detail Performing Clinician Start: 11-21-[address] PUNEET BRIGGS . Comment on above: Performed By: #### PSAD #### [facility] [address] [place] [address] Dr. Santhosh Francois Start: 11-04-2022 Cystoscopy Puneet BRIGGS Start: 05-16-[address] PUNEET BRIGGS . Comment on above: Performed By: #### PSAD #### [facility] [address] [place] [address] Dr. Santhosh Francois Start: 12-18-2021 Colonoscopy Ary PRICEL Start: 12-18-2021 Esophagogastroduodenoscopy Ary NILL Start: 11-14-2021 MRI-US fusion guided transrectal biopsy of prostate Ary PRICEL Start: 03-27-2021 Transrectal biopsy of prostate using ultrasound guidance Ary NILL Start: 03-22-2020 Transurethral prostatectomy Ary NILL Start: 04-14-2019 Assay of iron PARK MATTHNICOLETTEZ Start: 04-14-2019 Comprehensive metabolic panel PARK AICHH OLZ Start: 04-14-2019 Cyanocobalamin vitamin b-12 PARK AICHHOL Z Start: 01-12-2017 Cystoscope, device (physical object) Ary PRICEL Start: 09-28-1999 Esophagogastrostomy, antesternal or antethoracic Ary NILL Appendectomy Ary NILL Cardiac catheterization Devang PRICEL Cholecystectomy Ary NILL Colonoscopy Ary NILL History of radiofreq uency ablation operation for arrhythmia Ary NILL Lithotripsy Ary NILL Comment on above: x3 Repair of umbilical hernia M ritika PRICEL Plan of Treatment Date Care Activity Detail Author Start: 12-28-2023 Screening for malign ant neoplasm of colon [facility] Start: 05-29-2023 Influenza vaccination Influenza Vacc ine (#1) [facility] Start: 11-28-1963 Pneumococcal Vaccine : 65+ Years (1 - PCV) Pneumococcal Vaccine: 65+ Years (1 - PCV) [facility] Start: 1955 Screening for malign ant neoplasm of colon [facility] Immunizations Immunization Date Immunization Notes Care Provider Hipolito [email or web address] 08-12-2023 Influenza, High-dose Seasonal, Quadrivalent, Preservative Free Park Paresh STEAM[employer]ER Work Phone: [facility] 07-29-2021 influenza virus vaccine, unspecified formulation Ary ARTEAGA [facility] [place] 02-13-2021 SARS-CoV-2 (COVID-19 ) mRNA BNT-162b2 vax Puneet BRIGGS [facility] 01-23-2021 SARS-CoV-2 (COVID-19 ) mRNA BNT-162b2 vax Puneet BRIGGS [facility] 09-28-2020 SARS-CoV-2 (COVID-19 ) mRNA BNT-162b2 vax Ary ARTEAGA [facility] [place] 07-02-2020 influenza virus vaccine, unspecified formulation Ary PRAVIN [facility] [place] Payers Date Payer Category Payer Unknown 1957 Unknown [id number] 1955 Unknown [id number] 2.16.84 [id number] 1957 Unknown [id number] 2.16.84 [id number] 1957 Unknown [id number] 2.16.84 [id number] 1957 Unknown [id number] 2.16.84 [id number] 1957 Unknown [id number] 2.16.84 [id number] 1957 Unknown [id number] 2.16.84 [id number] 1957 Unknown [id number] 2.16.84 [id number] 1957 Unknown [id number] 2.16.84 [id number] 1957 Unknown [id number] 2.16.84 [id number] 1957 Unknown [id number] 2.16.8 [id number] 1957 Unknown [id number] 2.16.8 [id number] 1957 Unknown [id number] 2.16.8 [id number] 1957 Unknown [id number] 2.16.8 [id number] 1957 Unknown [id number] 2.16.8 [id number] 1957 Unknown [id number] 2.16.8 [id number] 1957 Unknown [id number] 2.16.84 [id number] Social History Date Type Detail Facility Start: 12-06-2021 End: 10-26-2023 Tobacco smoking status Never smoked tobacco (finding) [facility] [place] Tobacco smoking status Never [facility] [place] Start: 10-26-2023 End: 11-04-2023 Sex Assigned At Male [facility] Start: 10-19-2023 Tobacco smoking status Light t obacco smoker (finding) [facility] Start: 10-26-2023 End: 11-04-2023 History of Social function [facility] Start: 1955 Sex Assigned At Not on file [facility] Start: 11-04-2023 Alcohol intake Ex-drinker (finding) [facility] Start: 11-04-2023 Alcohol Comment caffine: 3 cups lucretia y [facility] Functional Status Date Assessment Result Facility 10-19-2023 Functional Status Yes [facility] 04-13-2023 Functional Status N/A [facility] 11-04-2022 Functional Status N/A [facility] 05-19-2022 Functional Status N/A [facility] Clinical Notes 12-18-2021 to 11-04-2023 Park Yoder NP - 11/04/2023 4:06 PM Nia Yoder NP - 11/04/2023 4:06 PM Nia Yoder, CHRISTOPHE - 11/04/2023 4:06 PM Nia Yoder, CHRISTOPHE - 11/04/2023 4:05 PM EST Note Date & Type Note Facility 11-04-2023 History of Present illness Narrative Associated Problem(s): HTN (hypertension) (CMS/HCC) Stable cont with cardiology Associated Problem(s): Chronic systolic heart failure (CMS/HCC) Continues with cardiology Associated Problem(s): Hyperlipidemia (CMS/HCC) Stable cont current meds Associated Problem(s): Iron deficiency anemia following bariatric surgery Labs from 04/19 good Feels good Recheck labs 04/20 Associated Problem(s): H/O bariatric surgery Continue with vitamins Labs due 04/20 Images from the original note were not included. Shabnam Burgess is a 67 y.o. male presents with chief complaint of No chief complaint on file. HPI: Here for check up. Hx HTN, cardiomyopathy, and ALEXIS He has been feeling well, he follows yearly with urology and cardiology as well. No chest pain/pressure, no shortness of breath Does have generalized lower extremity edema not worse and not better SUBJECTIVE: MEDICATIONS: Current Outpatient Medications Medication Instructions atorvastatin (Lipitor) 40 MG tablet 1 tablet, Oral, Every morning cetirizine (ZyrTEC) 10 MG tablet 1 tablet, Oral, Daily dutasteride (Avodart) 0.5 MG capsule 1 capsule, Oral, Daily fluticasone (Flonase) 50 MCG/ACT nasal spray 2 sprays, Each Nostril, Daily lisinopril 5 MG tablet 1 tablet, Oral, Every morning metoprolol succinate XL (Toprol-XL) 25 MG 24 hr tablet 1 tablet, Oral, Daily Multiple Vitamin (multivitamin) tablet 1 tablet, Oral, Daily ALLERGIES: No Known Allergies REVIEW OF SYMPTOMS: Review of Systems Constitutional: Negative for activity change, appetite change and unexpected weight change. HENT: Negative for ear pain, nosebleeds, sneezing, trouble swallowing and voice change. Eyes: Negative for pain, discharge and visual disturbance. Respiratory: Negative for apnea, chest tightness and wheezing. Cardiovascular: Positive for leg swelling. Gastrointestinal: Negative for abdominal distention, blood in stool, constipation and diarrhea. Genitourinary: Negative for decreased urine volume, difficulty urinating, dysuria and hematuria. Skin: Negative for color change. Neurological: Negative for dizziness, tremors and seizures. Psychiatric/Behavioral: Negative for agitation, decreased concentration, hallucinations, self-injury and suicidal ideas. The patient is not nervous/anxious. Hematological: Negative for adenopathy. Does not bruise/bleed easily. Endocrine: Negative for cold intolerance, heat intolerance, polydipsia and polyuria. Allergic/Immunologic: Negative for environmental allergies and food allergies. PAST MEDICAL HISTORY Past Medical History: Diagnosis Date Allergic rhinitis At moderate risk for fall Atrial flutter (CMS/HCC) Benign prostatic hyperplasia with lower urinary tract symptoms, symptom details unspecified COVID-19 virus infection Elevated liver function tests Enlarged prostate Fatigue Gross hematuria H/O bariatric surgery 11/04/2023 HTN (hypertension) (CMS/HCC) 11/04/2023 Hyperlipidemia (CMS/HCC) 11/04/2023 Hypocalcemia Iron deficiency anemia following bariatric surgery 11/04/2023 Murmur Non-ischemic cardiomyopathy (CMS/HCC) NSVT (nonsustained ventricular tachycardia) (CMS/HCC) and paroxysmal vtach Obesity with body mass index (BMI) of 30.0 to 39.9 Paroxysmal ventricular tachycardia (CMS/HCC) Prostate cancer (CMS/HCC) Adenocarcinoma RBBB (right bundle branch block) Rectal burning Ruptured tympanic membrane, right Systolic heart failure (CMS/HCC) Venous insufficiency of both lower extremities Weakness of both legs No past surgical history on file. family history is not on file. OBJECTIVE: Visit Vitals BP 118/78 (BP Location: Left arm, Patient Position: Sitting, BP Cuff Size: Adult long) Pulse 66 Temp 97.1 F (Temporal) Resp 18 Ht 5' 10 Wt 240 lb 3.2 oz SpO2 97% BMI 34.47 kg/m Smoking Status Never BSA 2.32 m Physical Exam Vitals reviewed. Constitutional: Appearance: Normal appearance. HENT: Head: Normocephalic. Right Ear: External ear normal. Left Ear: External ear normal. Nose: Nose normal. Mouth/Throat: Mouth: Mucous membranes are moist. Pharynx: Oropharynx is clear. Eyes: Extraocular Movements: Extraocular movements intact. Conjunctiva/sclera: Conjunctivae normal. Cardiovascular: Rate and Rhythm: Normal rate and regular rhythm. Pulses: Normal pulses. Heart sounds: Normal heart sounds. Pulmonary: Effort: Pulmonary effort is normal. Breath sounds: Normal breath sounds. Abdominal: General: Bowel sounds are normal. Palpations: Abdomen is soft. Musculoskeletal: Cervical back: Neck supple. Right lower leg: Edema (1+) present. Left lower leg: Edema (1+) present. Skin: General: Skin is warm and dry. Capillary Refill: Capillary refill takes 2 to 3 seconds. Neurological: General: No focal deficit present. Mental Status: He is alert. Psychiatric: Mood and Affect: Mood normal. Behavior: Behavior normal. Thought Content: Thought content normal. Judgment: Judgment normal. ASSESSMENT AND PLAN: No follow-ups on file. Problem List Items Addressed This Visit Chronic systolic heart failure (CMS/HCC) Continues with cardiology Nonischemic cardiomyopathy (CMS/HCC) BMI 37.0-37.9, adult HTN (hypertension) (CMS/HCC) Stable cont with cardiology H/O bariatric surgery Continue with vitamins Labs due 04/20 Iron deficiency anemia following bariatric surgery - Primary Labs from 04/19 good Feels good Recheck labs 04/20 Hyperlipidemia (CMS/HCC) Stable cont current meds documented in this encounter [facility] 10-19-2023 Hospital Discharge instructions Patient Education 10/19/2023 15:40:15 Benign Prostatic Hyperplasia Benign Prostatic Hyperplasia Benign prostatic hyperplasia (BPH) is an enlarged prostate gland that is caused by the normal aging process. The prostate may get bigger as a man gets older. The condition is not caused by cancer. The prostate is a walnut-sized gland that is involved in the production of semen. It is located in front of the rectum and below the bladder. The bladder stores urine. The urethra carries stored urine out of the body. An enlarged prostate can press on the urethra. This can make it harder to pass urine. The buildup of urine in the bladder can cause infection. Back pressure and infection may progress to bladder damage and kidney (renal) failure. What are the causes? This condition is part of the normal aging process. However, not all men develop problems from this condition. If the prostate enlarges away from the urethra, urine flow will not be blocked. If it enlarges toward the urethra and compresses it, there will be problems passing urine. What increases the risk? This condition is more likely to develop in men older than 50 years. What are the signs or symptoms? Symptoms of this condition include: Getting up often during the night to urinate. Needing to urinate frequently during the day. Difficulty starting urine flow. Decrease in size and strength of your urine stream. Leaking (dribbling) after urinating. Inability to pass urine. This needs immediate treatment. Inability to completely empty your bladder. Pain when you pass urine. This is more common if there is also an infection. Urinary tract infection (UTI). How is this diagnosed? This condition is diagnosed based on your medical history, a physical exam, and your symptoms. Tests will also be done, such as: A post-void bladder scan. This measures any amount of urine that may remain in your bladder after you finish urinating. A digital rectal exam. In a rectal exam, your health care provider checks your prostate by putting a lubricated, gloved finger into your rectum to feel the back of your prostate gland. This exam detects the size of your gland and any abnormal lumps or growths. An exam of your urine (urinalysis). A prostate specific antigen (PSA) screening. This is a blood test used to screen for prostate cancer. An ultrasound. This test uses sound waves to electronically produce a picture of your prostate gland. Your health care provider may refer you to a specialist in kidney and prostate diseases (urologist). How is this treated? Once symptoms begin, your health care provider will monitor your condition (active surveillance or watchful waiting). Treatment for this condition will depend on the severity of your condition. Treatment may include: Observation and yearly exams. This may be the only treatment needed if your condition and symptoms are mild. Medicines to relieve your symptoms, including: ?Medicines to shrink the prostate. ?Medicines to relax the muscle of the prostate. Surgery in severe cases. Surgery may include: ?Prostatectomy. In this procedure, the prostate tissue is removed completely through an open incision or with a laparoscope or robotics. ?Transurethral resection of the prostate (TURP). In this procedure, a tool is inserted through the opening at the tip of the penis (urethra). It is used to cut away tissue of the inner core of the prostate. The pieces are removed through the same opening of the penis. This removes the blockage. ?Transurethral incision (TUIP). In this procedure, small cuts are made in the prostate. This lessens the prostate's pressure on the urethra. ?Transurethral microwave thermotherapy (TUMT). This procedure uses microwaves to create heat. The heat destroys and removes a small amount of prostate tissue. ?Transurethral needle ablation (TUNA). This procedure uses radio frequencies to destroy and remove a small amount of prostate tissue. ?Interstitial laser coagulation (ILC). This procedure uses a laser to destroy and remove a small amount of prostate tissue. ?Transurethral electrovaporization (TUVP). This procedure uses electrodes to destroy and remove a small amount of prostate tissue. ?Prostatic urethral lift. This procedure inserts an implant to push the lobes of the prostate away from the urethra. Follow these instructions at home: Take [id number] and prescription medicines only as told by your health care provider. Monitor your symptoms for any changes. Contact your health care provider with any changes. Avoid drinking large amounts of liquid before going to bed or out in public. Avoid or reduce how much caffeine or alcohol you drink. Give yourself time when you urinate. Keep all follow-up visits. This is important. Contact a health care provider if: You have unexplained back pain. Your symptoms do not get better with treatment. You develop side effects from the medicine you are taking. Your urine becomes very dark or has a bad smell. Your lower abdomen becomes distended and you have trouble passing urine. Get help right away if: You have a fever or chills. You suddenly cannot urinate. You feel light-headed or very dizzy, or you faint. There are large amounts of blood or clots in your urine. Your urinary problems become hard to manage. You develop moderate to severe low back or flank pain. The flank is the side of your body between the ribs and the hip. These symptoms may be an emergency. Get help right away. Call 911. Do not wait to see if the symptoms will go away. Do not drive yourself to the hospital. Summary Benign prostatic hyperplasia (BPH) is an enlarged prostate that is caused by the normal aging process. It is not caused by cancer. An enlarged prostate can press on the urethra. This can make it hard to pass urine. This condition is more likely to develop in men older than 50 years. Get help right away if you suddenly cannot urinate. This information is not intended to replace advice given to you by your health care provider. Make sure you discuss any questions you have with your health care provider. Document Revised: 04/02/2022 Document Reviewed: 04/02/2022 [employer] Patient Education 2022 [employer]. Follow Up Care 04/13/2023 16:26:55 With:ANAHI MCDONALD, Puneet R, URL Address: [facility] [address] [place] [id number]- When:Within 1 Year(s) Comments:w/FESTUS [facility] [place] 04-13-2023 Hospital Discharge instructions Patient Education 04/13/2023 16:20:54 Prostate Cancer Prostate Cancer The prostate is a small gland that produces fluid that makes up semen (seminal fluid). It is located below the bladder in men, in front of the rectum. Prostate cancer is the abnormal growth of cells in the prostate gland. What are the causes? The exact cause of this condition is not known. What increases the risk? You are more likely to develop this condition if: You are 65 years of age or older. You have a family history of prostate cancer. You have a family history of breast and ovarian cancer. You have genes that are passed from parent to child (inherited), such as BRCA1 and BRCA2. You have Reardon syndrome. men and men of descent are diagnosed with prostate cancer at higher rates than other men. The reasons for this are not well understood and are likely due to a combination of genetic and environmental factors. What are the signs or symptoms? Symptoms of this condition include: Problems with urination. This may include: ?A weak or interrupted flow of urine. ?Trouble starting or stopping urination. ?Trouble emptying the bladder all the way. ?The need to urinate more often, especially at night. Blood in urine or semen. Persistent pain or discomfort in the lower back, lower abdomen, or hips. Trouble getting an erection. Weakness or numbness in the legs or feet. How is this diagnosed? This condition can be diagnosed with: A digital rectal exam. For this exam, a health care provider inserts a gloved finger into the rectum to feel the prostate gland. A blood test called a prostate-specific antigen (PSA) test. A procedure in which a sample of tissue is taken from the prostate and checked under a microscope (prostate biopsy). An imaging test called transrectal ultrasonography. Once the condition is diagnosed, tests will be done to determine how far the cancer has spread. This is called staging the cancer. Staging may involve imaging tests, such as a bone scan, CT scan, PET scan, or MRI. Stages of prostate cancer The stages of prostate cancer are as follows: Stage 1 (I). At this stage, the cancer is found in the prostate only. The cancer is not visible on imaging tests, and it is usually found by accident, such as during prostate surgery. Stage 2 (II). At this stage, the cancer is more advanced than it is in stage 1, but the cancer has not spread outside the prostate. Stage 3 (III). At this stage, the cancer has spread beyond the outer layer of the prostate to nearby tissues. The cancer may be found in the seminal vesicles, which are near the bladder and the prostate. Stage 4 (IV). At this stage, the cancer has spread to other parts of the body, such as the lymph nodes, bones, bladder, rectum, liver, or lungs. Prostate cancer grading Prostate cancer is also graded according to how the cancer cells look under a microscope. This is called the [place] score and the total score can range from 6 10, indicating how likely it is that the cancer will spread (metastasize) to other parts of the body. The higher the score, the greater the likelihood that the cancer will spread. [place] 6 or lower: This indicates that the cancer cells look similar to normal prostate cells (well differentiated). [place] 7: This indicates that the cancer cells look somewhat similar to normal prostate cells (moderately differentiated). [place] 8, 9, or 10: This indicates that the cancer cells look very different than normal prostate cells (poorly differentiated). How is this treated? Treatment for this condition depends on several factors, including the stage of the cancer, your age, personal preferences, and your overall health. Talk with your health care provider about treatment options that are recommended for you. Common treatments include: Observation for early stage prostate cancer (active surveillance). This involves having exams, blood tests, and in some cases, more biopsies. For some men, this is the only treatment needed. Surgery. Types of surgeries include: ?Open surgery (radical prostatectomy). In this surgery, a larger incision is made to remove the prostate. ?A laparoscopic radical prostatectomy. This is a surgery to remove the prostate and lymph nodes through several small incisions. It is often referred to as a minimally invasive surgery. ?A robotic radical prostatectomy. This is laparoscopic surgery to remove the prostate and lymph nodes with the help of robotic arms that are controlled by the surgeon. ?Cryoablation. This is surgery to freeze and destroy cancer cells. Radiation treatment. Types of radiation treatment include: ?External beam radiation. This type aims beams of radiation from outside the body at the prostate to destroy cancerous cells. ?Brachytherapy. This type uses radioactive needles, seeds, wires, or tubes that are implanted into the prostate gland. Like external beam radiation, brachytherapy destroys cancerous cells. An advantage is that this type of radiation limits the damage to surrounding tissue and has fewer side effects. Chemotherapy. This treatment kills cancer cells or stops them from multiplying. It kills both cancer cells and normal cells. Targeted therapy. This treatment uses medicines to kill cancer cells without damaging normal cells. Hormone treatment. This treatment involves taking medicines that act on testosterone, one of the male hormones, by: ?Stopping your body from producing testosterone. ?Blocking testosterone from reaching cancer cells. Follow these instructions at home: Lifestyle Do not use any products that contain nicotine or tobacco. These products include cigarettes, chewing tobacco, and vaping devices, such as e-cigarettes. If you need help quitting, ask your health care provider. Eat a healthy diet. To do this: ?Eat foods that are high in fiber. These include beans, whole grains, and fresh fruits and vegetables. ?Limit foods that are high in fat and sugar. These include fried or sweet foods. Treatment for prostate cancer may affect sexual function. If you have a partner, continue to have intimate moments. This may include touching, holding, hugging, and caressing your partner. Get plenty of sleep. Consider joining a support group for men who have prostate cancer. Meeting with a support group may help you learn to manage the stress of having cancer. General instructions Take qvdj-iwy-mcgrxyt and prescription medicines only as told by your health care provider. If you have to go to the hospital, notify your cancer specialist (oncologist). Keep all follow-up visits. This is important. Where to find more information [place] [employer]: www.cancer.org [place] [employer]: www.cancer.net National Cancer [place]: www.cancer.gov Contact a health care provider if: You have new or increasing trouble urinating. You have new or increasing blood in your urine. You have new or increasing pain in your hips, back, or chest. Get help right away if: You have weakness or numbness in your legs. You cannot control urination or your bowel movements (incontinence). You have chills or a fever. Summary The prostate is a small gland that is involved in the production of semen. It is located below a man's bladder, in front of the rectum. Prostate cancer is the abnormal growth of cells in the prostate gland. Treatment for this condition depends on the stage of the cancer, your age, personal preferences, and your overall health. Talk with your health care provider about treatment options that are recommended for you. Consider joining a support group for men who have prostate cancer. Meeting with a support group may help you learn to manage the stress of having cancer. This information is not intended to replace advice given to you by your health care provider. Make sure you discuss any questions you have with your health care provider. Document Revised: 12/11/2021 Document Reviewed: 12/11/2021 [employer] Patient Education 2022 [employer]. Follow Up Care 03/16/2023 14:05:40 With:ANAHI MCDONALD, Puneet Ross, URL Address: [facility] [address] [place] [id number]- [phone] When: Unknown Comments:6 mos w/ PSA and PVR [facility] [place] 11-03-2022 Hospital Discharge instructions Patient Education 11/03/2022 16:22:12 Benign Prostatic Hyperplasia Benign Prostatic Hyperplasia Benign prostatic hyperplasia (BPH) is an enlarged prostate gland that is caused by the normal aging process and not by cancer. The prostate is a walnut-sized gland that is involved in the production of semen. It is located in front of the rectum and below the bladder. The bladder stores urine and the urethra is the tube that carries the urine out of the body. The prostate may get bigger as a man gets older. An enlarged prostate can press on the urethra. This can make it harder to pass urine. The build-up of urine in the bladder can cause infection. Back pressure and infection may progress to bladder damage and kidney (renal) failure. What are the causes? This condition is part of a normal aging process. However, not all men develop problems from this condition. If the prostate enlarges away from the urethra, urine flow will not be blocked. If it enlarges toward the urethra and compresses it, there will be problems passing urine. What increases the risk? This condition is more likely to develop in men over the age of 50 years. What are the signs or symptoms? Symptoms of this condition include: Getting up often during the night to urinate. Needing to urinate frequently during the day. Difficulty starting urine flow. Decrease in size and strength of your urine stream. Leaking (dribbling) after urinating. Inability to pass urine. This needs immediate treatment. Inability to completely empty your bladder. Pain when you pass urine. This is more common if there is also an infection. Urinary tract infection (UTI). How is this diagnosed? This condition is diagnosed based on your medical history, a physical exam, and your symptoms. Tests will also be done, such as: A post-void bladder scan. This measures any amount of urine that may remain in your bladder after you finish urinating. A digital rectal exam. In a rectal exam, your health care provider checks your prostate by putting a lubricated, gloved finger into your rectum to feel the back of your prostate gland. This exam detects the size of your gland and any abnormal lumps or growths. An exam of your urine (urinalysis). A prostate specific antigen (PSA) screening. This is a blood test used to screen for prostate cancer. An ultrasound. This test uses sound waves to electronically produce a picture of your prostate gland. Your health care provider may refer you to a specialist in kidney and prostate diseases (urologist). How is this treated? Once symptoms begin, your health care provider will monitor your condition (active surveillance or watchful waiting). Treatment for this condition will depend on the severity of your condition. Treatment may include: Observation and yearly exams. This may be the only treatment needed if your condition and symptoms are mild. Medicines to relieve your symptoms, including: ?Medicines to shrink the prostate. ?Medicines to relax the muscle of the prostate. Surgery in severe cases. Surgery may include: ?Prostatectomy. In this procedure, the prostate tissue is removed completely through an open incision or with a laparoscope or robotics. ?Transurethral resection of the prostate (TURP). In this procedure, a tool is inserted through the opening at the tip of the penis (urethra). It is used to cut away tissue of the inner core of the prostate. The pieces are removed through the same opening of the penis. This removes the blockage. ?Transurethral incision (TUIP). In this procedure, small cuts are made in the prostate. This lessens the prostate's pressure on the urethra. ?Transurethral microwave thermotherapy (TUMT). This procedure uses microwaves to create heat. The heat destroys and removes a small amount of prostate tissue. ?Transurethral needle ablation (TUNA). This procedure uses radio frequencies to destroy and remove a small amount of prostate tissue. ?Interstitial laser coagulation (ILC). This procedure uses a laser to destroy and remove a small amount of prostate tissue. ?Transurethral electrovaporization (TUVP). This procedure uses electrodes to destroy and remove a small amount of prostate tissue. ?Prostatic urethral lift. This procedure inserts an implant to push the lobes of the prostate away from the urethra. Follow these instructions at home: Take sjpb-tha-mtvcclk and prescription medicines only as told by your health care provider. Monitor your symptoms for any changes. Contact your health care provider with any changes. Avoid drinking large amounts of liquid before going to bed or out in public. Avoid or reduce how much caffeine or alcohol you drink. Give yourself time when you urinate. Keep all follow-up visits as told by your health care provider. This is important. Contact a health care provider if: You have unexplained back pain. Your symptoms do not get better with treatment. You develop side effects from the medicine you are taking. Your urine becomes very dark or has a bad smell. Your lower abdomen becomes distended and you have trouble passing your urine. Get help right away if: You have a fever or chills. You suddenly cannot urinate. You feel lightheaded, or very dizzy, or you faint. There are large amounts of blood or clots in the urine. Your urinary problems become hard to manage. You develop moderate to severe low back or flank pain. The flank is the side of your body between the ribs and the hip. These symptoms may represent a serious problem that is an emergency. Do not wait to see if the symptoms will go away. Get medical help right away. Call your local emergency services (911 in the [place] Do not drive yourself to the hospital. Summary Benign prostatic hyperplasia (BPH) is an enlarged prostate that is caused by the normal aging process and not by cancer. An enlarged prostate can press on the urethra. This can make it hard to pass urine. This condition is part of a normal aging process and is more likely to develop in men over the age of 50 years. Get help right away if you suddenly cannot urinate. This information is not intended to replace advice given to you by your health care provider. Make sure you discuss any questions you have with your health care provider. Document Released: 09/14/2006 Document Revised: 08/09/2019 Document Reviewed: 10/19/2017 [employer] Patient Education [place] Follow Up Care 10/13/2022 13:53:44 With:ANAHI MCDONALD, DELANEY Conti Address: [facility] [address], [place] [id number]- When: Unknown [facility] 05-19-2022 Hospital Discharge instructions Patient Education 05/19/2022 16:24:13 Prostatitis, Qlsr-vo-Ofuv Prostatitis Prostatitis is swelling of the prostate gland. The prostate helps to make semen. It is below a man's bladder, in front of the rectum. There are different types of prostatitis. Follow these instructions at home: Take ygqg-iat-gylxzms and prescription medicines only as told by your doctor. If you were prescribed an antibiotic medicine, take it as told by your doctor. Do not stop taking the antibiotic even if you start to feel better. If your doctor prescribed exercises, do them as directed. Take sitz baths as told by your doctor. To take a sitz bath, sit in warm water that is deep enough to cover your hips and butt. Keep all follow-up visits as told by your doctor. This is important. Contact a doctor if: Your symptoms get worse. You have a fever. Get help right away if: You have chills. You feel sick to your stomach (nauseous). You throw up (vomit). You feel light-headed. You feel like you might pass out (faint). You cannot pee (urinate). You have blood or clumps of blood (blood clots) in your pee (urine). This information is not intended to replace advice given to you by your health care provider. Make sure you discuss any questions you have with your health care provider. Document Released: 03/15/2013 Document Revised: 08/27/2018 Document Reviewed: 06/04/2017 [employer] Patient [employer] 05/19/2022 16:24:11 Calorie Counting for Weight Loss Calorie Counting for Weight Loss Calories are units of energy. Your body needs a certain amount of calories from food to keep you going throughout the day. When you eat more calories than your body needs, your body stores the extra calories as fat. When you eat fewer calories than your body needs, your body mcdonald fat to get the energy it needs. Calorie counting means keeping track of how many calories you eat and drink each day. Calorie counting can be helpful if you need to lose weight. If you make sure to eat fewer calories than your body needs, you should lose weight. Ask your health care provider what a healthy weight is for you. For calorie counting to work, you will need to eat the right number of calories in a day in order to lose a healthy amount of weight per week. A dietitian can help you determine how many calories you need in a day and will give you suggestions on how to reach your calorie goal. A healthy amount of weight to lose per week is usually 1 2 lb (0.5 0.9 kg). This usually means that your daily calorie intake should be reduced by 500 750 calories. Eating 1,200 1,500 calories per day can help most women lose weight. Eating 1,500 1,800 calories per day can help most men lose weight. What is my plan? My goal is to have calories per day. If I have this many calories per day, I should lose around pounds per week. What do I need to know about calorie counting? In order to meet your daily calorie goal, you will need to: Find out how many calories are in each food you would like to eat. Try to do this before you eat. Decide how much of the food you plan to eat. Write down what you ate and how many calories it had. Doing this is called keeping a food log. To successfully lose weight, it is important to balance calorie counting with a healthy lifestyle that includes regular activity. Aim for 150 minutes of moderate exercise (such as walking) or 75 minutes of vigorous exercise (such as running) each week. Where do I find calorie information? The number of calories in a food can be found on a Nutrition Facts label. If a food does not have a Nutrition Facts label, try to look up the calories online or ask your dietitian for help. Remember that calories are listed per serving. If you choose to have more than one serving of a food, you will have to multiply the calories per serving by the amount of servings you plan to eat. For example, the label on a package of bread might say that a serving size is 1 slice and that there are 90 calories in a serving. If you eat 1 slice, you will have eaten 90 calories. If you eat 2 slices, you will have eaten 180 calories. How do I keep a food log? Immediately after each meal, record the following information in your food log: What you ate. Don't forget to include toppings, sauces, and other extras on the food. How much you ate. This can be measured in cups, ounces, or number of items. How many calories each food and drink had. The total number of calories in the meal. Keep your food log near you, such as in a small notebook in your pocket, or use a mobile awais or website. Some programs will calculate calories for you and show you how many calories you have left for the day to meet your goal. What are some calorie counting tips? Use your calories on foods and drinks that will fill you up and not leave you hungry: ?Some examples of foods that fill you up are nuts and nut butters, vegetables, lean proteins, and high-fiber foods like whole grains. High-fiber foods are foods with more than 5 g fiber per serving. ?Drinks such as sodas, specialty coffee drinks, alcohol, and juices have a lot of calories, yet do not fill you up. Eat nutritious foods and avoid empty calories. Empty calories are calories you get from foods or beverages that do not have many vitamins or protein, such as candy, sweets, and soda. It is better to have a nutritious high-calorie food (such as an avocado) than a food with few nutrients (such as a bag of chips). Know how many calories are in the foods you eat most often. This will help you calculate calorie counts faster. Pay attention to calories in drinks. Low-calorie drinks include water and unsweetened drinks. Pay attention to nutrition labels for low fat or fat free foods. These foods sometimes have the same amount of calories or more calories than the full fat versions. They also often have added sugar, starch, or salt, to make up for flavor that was removed with the fat. Find a way of tracking calories that works for you. Get creative. Try different apps or programs if writing down calories does not work for you. What are some portion control tips? Know how many calories are in a serving. This will help you know how many servings of a certain food you can have. Use a measuring cup to measure serving sizes. You could also try weighing out portions on a kitchen scale. With time, you will be able to estimate serving sizes for some foods. Take some time to put servings of different foods on your favorite plates, bowls, and cups so you know what a serving looks like. Try not to eat straight from a bag or box. Doing this can lead to overeating. Put the amount you would like to eat in a cup or on a plate to make sure you are eating the right portion. Use smaller plates, glasses, and bowls to prevent overeating. Try not to multitask (for example, watch TV or use your computer) while eating. If it is time to eat, sit down at a table and enjoy your food. This will help you to know when you are full. It will also help you to be aware of what you are eating and how much you are eating. What are tips for following this plan? Reading food labels Check the calorie count compared to the serving size. The serving size may be smaller than what you are used to eating. Check the source of the calories. Make sure the food you are eating is high in vitamins and protein and low in saturated and trans fats. Shopping Read nutrition labels while you shop. This will help you make healthy decisions before you decide to purchase your food. Make a grocery list and stick to it. Cooking Try to cook your favorite foods in a healthier way. For example, try baking instead of frying. Use low-fat dairy products. Meal planning Use more fruits and vegetables. Half of your plate should be fruits and vegetables. Include lean proteins like poultry and fish. How do I count calories when eating out? Ask for smaller portion sizes. Consider sharing an entree and sides instead of getting your own entree. If you get your own entree, eat only half. Ask for a box at the beginning of your meal and put the rest of your entree in it so you are not tempted to eat it. If calories are listed on the menu, choose the lower calorie options. Choose dishes that include vegetables, fruits, whole grains, low-fat dairy products, and lean protein. Choose items that are boiled, broiled, grilled, or steamed. Stay away from items that are buttered, battered, fried, or served with cream sauce. Items labeled crispy are usually fried, unless stated otherwise. Choose water, low-fat milk, unsweetened iced tea, or other drinks without added sugar. If you want an alcoholic beverage, choose a lower calorie option such as a glass of wine or light beer. Ask for dressings, sauces, and syrups on the side. These are usually high in calories, so you should limit the amount you eat. If you want a salad, choose a garden salad and ask for grilled meats. Avoid extra toppings like negro, cheese, or fried items. Ask for the dressing on the side, or ask for olive oil and vinegar or lemon to use as dressing. Estimate how many servings of a food you are given. For example, a serving of cooked rice is cup or about the size of half a baseball. Knowing serving sizes will help you be aware of how much food you are eating at restaurants. The list below tells you how big or small some common portion sizes are based on everyday objects: ?1 oz 4 stacked dice. ?3 oz 1 deck of cards. ?1 tsp 1 . ?1 Tbsp a ping-pong ball. ?2 Tbsp 1 ping-pong ball. ? cup baseball. ?1 cup 1 baseball. Summary Calorie counting means keeping track of how many calories you eat and drink each day. If you eat fewer calories than your body needs, you should lose weight. A healthy amount of weight to lose per week is usually 1 2 lb (0.5 0.9 kg). This usually means reducing your daily calorie intake by 500 750 calories. The number of calories in a food can be found on a Nutrition Facts label. If a food does not have a Nutrition Facts label, try to look up the calories online or ask your dietitian for help. Use your calories on foods and drinks that will fill you up, and not on foods and drinks that will leave you hungry. Use smaller plates, glasses, and bowls to prevent overeating. This information is not intended to replace advice given to you by your health care provider. Make sure you discuss any questions you have with your health care provider. Document Released: 09/14/2006 Document Revised: 06/03/2019 Document Reviewed: 08/14/2017 [employer] Patient Education 2020 [employer]. Follow Up Care 11/22/2021 12:25:13 With:ANAHI MCDONALD, HE Conti[employer] Address: [address] [place], [place] [id number] Business (1) When:Within 6 Month(s) Comments:w/[facility] 12-18-2021 Note OPERATIVE NOTE PREOPERATIVE DIAGNOSIS: Iron deficiency anemia. POSTOPERATIVE DIAGNOSIS: Small ulcer in the gastric body as well as mild gastritis within the gastric body as well as poor colon prep. PROCEDURE: EGD with cold biopsy forceps biopsy of the gastric body and colonoscopy to splenic flexure. SURGEON: Ary Arteaga M.D. ANESTHESIA: Monitored anesthesia care. INDICATIONS AND CONSENT: Patient is a 66-year-old male with history of previous gastric bypass, who has had history of iron deficiency anemia which had worsened over the last several months. It has improved some with iron therapy. Indications, risks, benefits, alternatives of proceeding with EGD and colonoscopy explained extensively to the patient, including risks of bleeding, aspiration, esophageal/gastric/duodenal or colonic perforation or anesthetic complications. All of his questions were answered. Informed consent was obtained. PROCEDURE: Patient brought to the operating room, placed in the left lateral decubitus position. Monitored anesthesia care was provided. Bite block was placed in the patient's mouth. Scope was inserted into the oropharynx. Under direct visualization, it was advanced into the esophagus, past the cricopharyngeus, down to the stomach. The stomach was insufflated with air. There was no pylorus but the gastric-enteric anastomosis was widely patent. There were no ulcerations. Within the body of the stomach, there was noted to be a small punctate ulceration but no active bleeding. There was a black area, stigmata of recent bleeding. No visible vessel. There was some surrounding inflammation in the body of the stomach that was biopsied with pediatric cold biopsy forceps with good hemostasis. The scope was retroflexed. There was no significant hiatal hernia. GE junction was noted at approximately 39 cm. There was no distal esophagitis or Stoddard's changes. The remainder of the esophagus was unremarkable. The scope was then withdrawn. Patient was then positioned for colonoscopy. Rectal exam was performed which showed no masses or blood. The scope was inserted into the anal canal. Under direct visualization, it was advanced. There was noted to be brown liquid as well as some semi-solid stool throughout the colon. It was able to be advanced to the splenic flexure; however, due to persistent amounts of semi-solid and dark liquid stool, it was unable to be advanced beyond that. Upon withdrawal of the scope, no large lesions or polyps were noted. The stool was brown with no evidence of blood, old or new. There were rare sigmoid diverticula without inflammatory changes or scarring. The scope was retroflexed in the anal canal. There was no significant hemorrhoidal disease. The scope was then withdrawn. Patient tolerated the procedure well, sent to recovery room on good condition. Follow up colonoscopy should be repeated in the near future due to the poor prep. CC: Park Yoder, [facility] Signed and Approved by: DR ARY ARTEAGA . 12/20/2021 11:57:00 [facility] Evaluation + Plan note Future Appointments Appointment Date:05/19/2022 03:15:00 PM Scheduled Provider:Puneet BRIGGS MD Location:[facility] Appointment Type:URO Office Visit General Surgery [place] Evaluation + Plan note Future Appointments Appointment Date:11/24/2022 03:30:00 PM Scheduled Provider:Puneet BRIGGS MD Location:[facility] Appointment Type:URO Office Visit Diagnostic Tests PendingPSA Total 05/19/22 [facility] Evaluation + Plan note Future Appointments Appointment Date:03/18/2023 08:30:00 AM Scheduled Provider:Puneet BRIGGS MD Location:On license of [facility] Appointment Type:URO Office Visit Diagnostic Tests PendingUroVysion Fish and Urine Cyto ([facility]) 11/04/22 [facility] Evaluation + Plan note Future Appointments Appointment Date:03/23/2023 03:00:00 PM Scheduled Provider:Puneet BRIGGS MD Location:[facility] Appointment Type:URO Office Visit [facility] Evaluation + Plan note Future Appointments Appointment Date:10/19/2023 02:45:00 PM Scheduled Provider:Puneet BRIGGS MD Location:[facility] Appointment Type:URO Office Visit Diagnostic Tests PendingPSA Total 04/13/23 [facility] Evaluation + Plan note Future Appointments Appointment Date:10/24/2024 03:00:00 PM Scheduled Provider:Puneet BRIGGS MD Location:[facility] Appointment Type:URO Office Visit Diagnostic Tests PendingPSA Total 10/19/23 [facility] Evaluation note Diagnosis Iron deficiency anemia following bariatric surgery- Primary BMI 37.0-37.9, adult Nonischemic cardiomyopathy (CMS/HCC) Other primary cardiomyopathies Primary hypertension (CMS/HCC) Unspecified essential hypertension Chronic systolic heart failure (CMS/HCC) Chronic systolic heart failure H/O bariatric surgery Mixed hyperlipidemia (CMS/HCC) Mixed hyperlipidemia documented in [facility] Narrative No data available for this section General Surgery [place] [facility] Discharge instructions No data available for this section General Surgery [place] [facility] Progress note No data available for this section [facility] Summary Purpose Family History No Family History Records FoundNo Family History Records FoundNo Family History Records FoundNo Family History Records FoundNo Family History Records Found No data available for this section No Family History Records Found Advance Directives No Advanced Directives Records FoundNo Advanced Directives Records FoundNo Advanced Directives Records FoundNo Advanced Directives Records FoundNo Advanced Directives Records FoundNo Advanced Directives Records Found Additional Source Comments (unrecognized sect ion and content) No Status Records FoundNo Status Records FoundNo Status Records FoundNo Status Records FoundNo Status Records FoundNo Status Records Found INFORMATION SOURCE (unrecogn ized section and content) DATE CREATED AUTHOR 03/18/2018 [facility] DATE CREATED AUTHOR AUTHOR'S ORGANIZ ATION 04/15/2019 [facility] DATE CREATED AUTHOR AUTHOR'S ORGANIZ ATION 12/16/2021 [facility] DATE CREATED AUTHOR AUTHOR'S ORGANIZ ATION 11/28/2022 [facility] DATE CREATED AUTHOR AUTHOR'S ORGANIZ ATION 04/14/[address] [facility] DATE CREATED AUTHOR AUTHOR'S ORGANIZ ATION 11/05/2023 [facility] EPIC Care Team (unrecognized sect ion and content) Catastrophe Claims Supervisor Relationship Specialty Start Date End Date Kenny Hartley MD [address] [place] [phone] PCP - General Family Medicine 10/26/23 Catastrophe Claims Supervisor Relationship Specialty Start Date End Date Kenny Hartley MD [address] [place] [id number] PCP - General Family Medicine 10/26/23 FOR RECORDS PERTAINING TO PATIENTS WHO ARE OR HAVE BEEN ENROLLED IN A CHEMICAL DEPENDENCY/SUBSTANCEABUSE PROGRAM, SOME INFORMATION MAY BE OMITTED. This clinical summary was aggregated from multiple sources. Caution should be exercised in using it in the provision of clinical care. This summary normalizes information from multiple sources, and as a consequence, information in this document may materially change the coding, format and clinical context of patient data. In addition, data may be omitted in some cases. CLINICAL DECISIONS SHOULD BE BASED ON THE PRIMARY CLINICAL RECORDS. [employer] provides no warranty or guarantee of the accuracy or completeness of information in this document.
[2023-12-24 07:24] LABS: Basophils Absolute Auto 0.1 10^3/uL (0.0-0.1); Basophils Percent Auto 0.8 % (0.2-2.0); Eosinophils Absolute Auto 0.2 10^3/uL (0.0-0.7); Eosinophils Percent Auto 3.2 % (0.9-7.0); Hematocrit 38.6 % (42.0-54.0); Hemoglobin 11.6 g/dL (14.0-18.0); Immature Granulocytes Abs Auto 0.01 10^3/uL (0.00-0.03); Immature Granulocytes Pct Auto 0.2 % (0.0-0.5); Lymphocytes Absolute Auto 1.5 10^3/uL (1.2-3.8); Lymphocytes Percent Auto 23.4 % (20.5-60.0); Mean Corpuscular HGB Conc 30.1 g/dL (29.9-35.2); Mean Corpuscular Hemoglobin 29.3 pg (25.9-34.0); Mean Corpuscular Volume 97.5 fL (80.0-94.0); Mean Platelet Volume 10.8 fL (9.5-13.5); Monocytes Absolute Auto 0.5 10^3/uL (0.3-0.8); Monocytes Percent Auto 8.4 % (1.7-12.0); Neutrophils Absolute Auto 4.1 10^3/uL (1.4-6.5); Platelet Count 132 10^3/uL (150-450); Red Blood Count 3.96 10^6/uL (4.70-6.10); Red Cell Distribution Width 15.9 % (11.0-15.0); White Blood Count 6.3 10^3/uL (4.0-11.0)
[2023-12-24 09:37] LABS: Alanine Aminotransferase 56 U/L (16-63); Albumin Globulin Ratio 1.1; Albumin Level 3.4 g/dL (3.4-5.0); Alkaline Phosphatase 129 U/L (46-116); Anion Gap 15.6; Aspartate Amino Transferase 44 U/L (15-37); BUN Creatinine Ratio 26.5; Calcium 7.5 mg/dL (8.5-10.1); Carbon Dioxide 21.5 mmol/L (21.0-32.0); Chloride 111 mmol/L (98-107); Estimated GFR (African America >60 (>=60); Estimated GFR (Non-African Ame >60 (>=60); Glucose 80 mg/dL (74-106); Potassium 4.1 mmol/L (3.5-5.1); Sodium 144 mmol/L (136-145); Total Protein 6.4 g/dL (6.4-8.2)
== END 2023-12-24 07:04 | disposition home or self-care (01) ==
LOC: LAB 07:05
PROVIDERS: PCP Nurse Practitioner; Visit Provider Nurse Practitioner
DX: K95.89 Other complications of other bariatric procedure (principal); D50.8 Other iron deficiency anemias; Z98.84 Bariatric surgery status; I10 Essential (primary) hypertension
CPT/HCPCS: 36415; 80053; 82607; 82728; 83540; 85025

== ENCOUNTER 2024-01-20 07:31 | Outpatient (RCR) | payer BC, SELFPAY ==
[2024-01-13 08:00] VITALS: BP 109/64; PULSE 61; TEMP 36.2; O2SAT 98
--- NOTE | 2024-01-13 08:00 | PC.NURSE ---
Patient is here for Injectafer infusion, his vitals obtained and stable. A 24g IV started in his right forearm with good blood return, he denies any pain. Patient tolerated infusion well without any complaints. IV discontinued, he denies any pain at the site. He was discharged home ambulatory.
[2024-01-13] MEDS: FERRIC CARBOXYMALTOSE 750 MG in 0.9 % SODIUM CHLORIDE 250 ML 1060 MG IV (08:17)
[2024-01-20 07:46] VITALS: BP 109/61; PULSE 68; TEMP 36.5; O2SAT 96
[2024-01-20] MEDS: FERRIC CARBOXYMALTOSE 750 MG in 0.9 % SODIUM CHLORIDE 250 ML 1060 MG IV (07:58)
--- NOTE | 2024-01-20 08:04 | PC.NURSE ---
0735 Arrival ambulatory for iron infusion 0740 #24 IV initiated rt forearm tolerated well 0805 infusion initiated
--- NOTE | 2024-01-20 08:45 | PC.NURSE ---
0830 infusion complete line flused with normal saline, iv dc'd catheter intact, site clear. cotton ball and pressure applied, secured with tape. no bleeding from site. released ambulatory
== END 2024-01-26 23:59 | disposition home or self-care (01) ==
LOC: INF 07:31
PROVIDERS: PCP Nurse Practitioner; Visit Provider Nurse Practitioner
DX: D50.9 Iron deficiency anemia, unspecified (principal); Z98.84 Bariatric surgery status
CPT/HCPCS: 96365; J1439

== ENCOUNTER 2024-02-16 16:06 | Outpatient (OUT) | payer BC, SELFPAY ==
--- OUTSIDE RECORDS SUMMARY | 2024-02-16 16:28 | XMS_ITS | CCD ---
Author Organization [facility] Care Team Providers Care Garnisher Name Role Phone PHYSICIAN, DEFAULT Unavailable Unavailable PHYSICIAN, DEFAULT Unavailable Unavailable AICHSILVIO PARK J. Referring Unavailable AICHHOLMichelle, PARK J. Primary Care Unavailable AICHSILVIO, PARK J Primary Care Physician ANAHI ., DR NGUYỄN Consulting Unavailable BRIGGS ., DR NGUYỄN Admitting Unavailable BRIGGS ., DR NGUYỄN Attending Unavailable AICHHOLZ, FINANCIAL ACCOUNTANT PARK Primary Care Unavailable MISC, DR AYERS Consulting Unavailable MISC, DR AYERS Admitting Unavailable MISC, DR AYERS Attending Unavailable AICHHOLZ, FINANCIAL ACCOUNTANT PARK Primary Care Unavailable AICHHOLZ, FINANCIAL ACCOUNTANT PARK Consulting Unavailable AICHHOLZ, FINANCIAL ACCOUNTANT PARK Primary Care Unavailable BRIGGS ., DR NGUYỄN Admitting Unavailable BRIGGS ., DR NGUYỄN Attending Unavailable ZIEBER, DR CASSIDY Ross Consulting Unavailable ELI DALAL Attending Unavailable ELI DALAL Admitting Unavailable AICHHOLZ, FINANCIAL ACCOUNTANT PARK Primary Care Unavailable JENNIFER DRAKE Consulting Unavailable DEANNE OTOOLE Consulting UnavailISACC Sidhu Admitting Unavailable ISACC BEJARANO Attending Unavailable AICHHOLZ, FINANCIAL ACCOUNTANT PARK Primary Care Unavailable ISACC BEJARANO Consulting Unavailable AICHHOLZ, FINANCIAL ACCOUNTANT PARK Primary Care Unavailable NILL ., DR MCALLISTER Admitting Unavailable NILL ., DR MCALLISTER Attending Unavailable NILL ., DR MCALLISTER Consulting Unavailable AICHHOLZ, FINANCIAL ACCOUNTANT PARK Primary Care Unavailable NILL ., DR MCALLISTER Admitting Unavailable NILL ., DR MCALLISTER Attending Unavailable GRACE LEO Consulting Unavailable JUAN ORO Consulting Unavailable AICHHOLZ, FINANCIAL ACCOUNTANT PARK Consulting Unavailable AICHHOLZ, FINANCIAL ACCOUNTANT PARK Primary Care Unavailable AICHHOLZ, FINANCIAL ACCOUNTANT PARK Admitting Unavailable AICHHOLZ, FINANCIAL ACCOUNTANT PARK Attending Unavailable AICHHOLZ, LILIANA MORALES Consulting Unavailable NIKKO, FINANCIAL ACCOUNTANT PARK Admitting Unavailable NIKKO, LILIANA MARCOSA Attending Unavailable NIKKO, LILIANA MORALES Primary Care Unavailable ANAHI, Puneet Ross Attending Unavailable ANAHI, Puneet Ross Attending Unavailable ANAHI, Puneet Ross Attending Unavailable ANAHI, Puneet Ross Attending Unavailable ANAHI, Puneet Ross Attending Unavailable ANAHI, Puneet Ross Attending Unavailable NIKKO, PARK Attending Unavailable Kenny Hartley MD Primary [...] procedure, # 2 tab(s), Refills(s) 0, Pharmacy: 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 Patient Educationon 04-13-20 Patient Education Oncology [...] likelihood that the cancer will spread. ? Beaman 6 or lower: This indicates that the cancer cells look similar to normal prostate cells (well differentiated). ? Beaman 7: This indicates that the cancer cells look somewhat similar to normal prostate cells (moderately differentiated). ? Marixa 8, 9, or 10: This indicates [...] external be (more content not included)... Normal [facility] Reminderson 04-13-2023 Reminders - From: Shala Soares To: JAYASHREE Briggs; Sent: 04/13/2023 16:27:00 EDT Show up: 09/13/2023 15:26:00 EST Subject: PSA Reminder Message Please Remember to:_get PSA (at [facility]) prior to next appt. Normal [facility] Urology Office/Clinic Noteon 04-13-2023 Urology Office/Clinic [...] cysts. [3] Follow-up With When Contact Information Puneet BRIGGS MD, URL [facility] [address], [place] [address] [phone] Additional Instructions: 6 mos w/ PSA and [...] of prostat (more content not included)... Normal [facility] Comment on above: Result Comment: Electronically Signed By : Puneet BRIGGS MD\.br\Date and Time Signed: 04/13/23 16:26 EDT\.br\Electronically Co-Signed By: Shala Soares\.br\Date and Time Co-Signed: 04/13/23 16:25 EDT Lab Reportson 11-30-2022 Lab Reports [id number]#[id number]:[address] [facility] UroVysion Fish and Urine Cyt o ([facility])on 11-13-2022 UVFISH & UC Diagnosis Info Invalid Interpretation Code [facility] Comment on above: Result Comment: A:Urine,Urine:Voided [...] 170 Hematuria: Gross Description Site ID:A color [place] fixative Alcohol Received 80 mls of clear orange fluid with the patient's name and, Urine on the vial. Electronically signed by : on: 11/13/2022 08:34:30 Performed By: #### 1 [id number] ####[facility] [address] [place] [address] Consent for Procedure/Surger yon 11-05-2022 Consent for Procedure/Surge ry [id number]#[id number]:[address] [facility] UroVysion Fish and Urine Cyt o ([facility])on 11-04-2022 UVUC Method of Extraction Bladder Urine Normal [facility] Comment on above: Performed By: #### [id number] ####[facility] [address] [place] [address] [facility] Number of Jars [address] [facility] Comment on above: Performed By: #### [id number] ####[facility] [address] [place] [address] [facility] Specimen Urine Normal [facility] Comment on above: Performed By: #### [id number] ####[facility] [address] [facility] [place] [address] [facility] Type of Service Global Normal [facility] Comment on above: Performed By: #### [id number] ####[facility] [address] [place] [address] Urology Office/Clinic Noteon 11-04-2022 Urology Office/Clinic Note [...] blood and clots on 09/12/22. Went to [facility] ER, they did urine cx. Was not [...] [facility] [address], [place] [address]- Additional Instructions: f/u 4 mos Patient Education [...] of lower (more content not included)... Normal [facility] Comment on above: Result Comment: Electronically Signed By : Puneet BRIGGS MD\.br\Date and Time Signed: 11/04/22 15:08 EST\.br\Electronically Co-Signed [...] Follow these instructions at home: ? Take zsra-zrd-gqyzpnv and prescription medicines only as told by [...] You d (more content not included)... Normal [facility] Pre-Certification Formon Pre-Certificati on Form [id number]#[id number]:[address] [facility] ER URINE PROFILEon 2 Bilirubin Ql (U) Negative Normal NEGATIVE [facility] Comment on above: Performed By: #### SKYLAR CAMARENA #### [facility] [address] [place] [address] Dr. Santhosh Francois Clarity (U) CLEAR Normal CLEAR [facility] Comment on above: Performed By: #### SKYLAR CAMARENA #### [facility] [address] [address] [address] Santhosh Francois Color (U) LT. YELLOW Normal YELLOW [facility] Comment on above: Performed By: #### NICOL ERUR #### [facility] [address] [address] [address] Santhosh PALACIOS A micrscopic examina tion will be performed if indicated. Normal [facility] Comment on above: Performed By: #### NICOL ERUR #### [facility] [address] [address] [address] Santhosh Francois Glucose Ql (U) Negative Normal NEGATIVE [facility] Comment on above: Performed By: #### NICOL ERUR #### [facility] [address] [place] [address] Dr. Santhosh Francois Hemoglobin Ql (U) LARGE Abnormal NEGATIVE [facility] Comment on above: Performed By: #### NICOL ERUR #### [facility] [address] [place] [address] Dr. Santhosh Francois Ketones Ql (U) Negative Normal NEGATIVE [facility] Comment on above: Performed By: #### NICOL ERUR #### [facility] [address] [address] [address] Santhosh Francois LEUKOCYTES Negative Normal NEGATIVE [facility] Comment on above: Performed By: #### NICOL ERUR #### [facility] [address] [address] [address] Santhosh Francois Nitrite Ql (U) Negative Normal NEGATIVE [facility] Comment on above: Performed By: #### NICOL ERUR #### [facility] [address] [address] [address] Santhosh Francois pH (U) 5.0 [pH] Normal 5-9 [facility] Comment on above: Performed By: #### NICOL ERUR #### [facility] [address] [place] [address] Dr. Santhosh Francois SPEC GRAVITY 1.010 Normal 1.005-<=1.02 5 [facility] Comment on above: Performed By: #### NICOL, ERUR #### [facility] [address] [place] [address] Dr. Santhosh Francois UA PROTEIN TRACE Normal NEGATIVE/ TRACE [facility] Comment on above: Performed By: #### NICOL, ERUR #### [facility] [address] [place] [address] Dr. Santhosh Francois UR MICRO IND INDICATED Normal [facility] Comment on above: Performed By: #### NICOL, ERUR #### [facility] [address] [place] [address] Dr. Santhosh Francois Urobilinogen Qn (U) 0.2 {Malini'U}/dL Normal 0.2 - 1.0 [facility] Comment on above: Performed By: #### NICOL, ERUR #### [facility] [address] [place] [address] Dr. Santhosh Francois URINE MICROSCOPIC ONLYon BACTERIA NONE SEEN Normal NONE SEEN [facility] Comment on above: Performed By: #### CBC #### [facility] [address] [place] [address] Dr. Santhosh Francois Bacteria identified Cx Nom (U) NOT INDICATED Normal [facility] Comment on above: Performed By: #### CBC #### [facility] [address] [place] [address] Dr. Santhosh Francois CAST NONE SEEN Normal NONE SEEN [facility] Comment on above: Performed By: #### CBC #### [facility] [address] [place] [address] Dr. Santhosh Francois Crystals LM Nom (Urine sed) NONE SEEN Normal NONE SEEN [facility] Comment on above: Performed By: #### CBC #### [facility] [address] [place] [address] Dr. Santhosh Francois Epithelial cells LM Ql (Urine sed) RARE Normal NONE SEEN /RARE [facility] Comment on above: Performed By: #### CBC #### [facility] [address] [place] [address] Dr. Santhosh Francois MUCOUS NONE SEEN Normal NONE SEEN [facility] Comment on above: Performed By: #### CBC #### [facility] [address] [address] [address] Santhosh Francois RBC 10-20 Abnormal 0-2 [facility] Comment on above: Performed By: #### CBC #### [facility] [address] [address] [address] Santhosh Francois WBC NONE SEEN Normal NONE SEEN [facility] Comment on above: Performed By: #### CBC #### [facility] [address] [address] [address] Santhosh Francios Lab Reportson 05-20-2022 Lab Reports [id number]#[id number]:[address] [facility] Ambulatory Visit Summaryon 0 05-19-2022 Ambulatory Visit Summary SHABNAM BURGESS :1955 Visit Date:05/19/2022 Ambulatory Visit Instructions Your Diagnosis Prostate cancer Chronic prostatitis BPH with urinary obstruction Kidney stones BMI 36.0-36.9,adult Other obstructive and reflux uropathy Tests Performed Urnls Dip Stick Auto w/o Microscopy POC 09487 Your Care Team Attending Physician - ANAHI [...] MCDONALD, Puneet Ross Where: [facility] [place] Normal [facility] Patient Educationon 05-19-20 Patient Education Infectious Disease Prostatitis Prostatitis is swelling of the prostate gland. The prostate helps to make semen. It is below a man's bladder, in front of the rectum. There are different types of prostatitis. Follow these instructions at home: ? Take dnok-slo-sttbrxd and prescription medicines only as told by [...] Reviewed: 06/04/2017 Elsevier Patient Education ? 2020 [employer] Nutrition Calorie Counting for Weight Loss [...] not leave (more content not included)... Normal [facility] Urology Office/Clinic Noteon 05-19-2022 Urology Office/Clinic [...] ANAHI MCDONALD, DELANEY Conti In 6 months [facility] [place] [address] [facility] (1) Additional Instructions: w/PSA Patient Education Prostatitis, Iqyk-mc-Uaxc Calorie Counting for Weight Loss Carey Willett [...] Wine, Daily, (more content not included)... Normal [facility] Comment on above: Result Comment: Electronically Signed By : Puneet BRIGGS MD.br\Date and Time Signed: 05/19/22 16:36 EDT\.br\Electronically Co-Signed By: Carey Gonzalez.br\Date and Time Co-Signed: 05/19/22 16:34 EDT LIPID PROFILEon 05-16-2022 CHOL-HDL RATIO NORM SEE BELOW Normal [facility] Comment on above: Result Comment: 3.3 - 4.4 LOW RISK 4.4 - 7.1 AVERAGE RISK 7.1 - 11.0 MODERATE RISK >11.0 HIGH RISK Performed By: #### C BC #### [facility] [address] [address] [address] Santhosh Francois Cholesterol [Mass/Vol] 58 mg/dL Normal <=200 [facility] Comment on above: Performed By: #### CBC #### [facility] [address] [address] [address] Santhosh Francois Cholesterol in HDL [Mass/Vol] 38 mg/dL Critically low 40-60 [facility] Comment on above: Performed By: #### CBC #### [facility] [address] [address] [address] Santhosh Francois Cholesterol in LDL [Mass/Vol] 14.0 mg/dL Normal [facility] Comment on above: Performed By: #### CBC #### [facility] [address] [address] [address] Santhosh Francosi Cholesterol.tot al/Cholesterol in HDL [Mass ratio] 1.5 {ratio} Normal [facility] Comment on above: Performed By: #### CBC #### [facility] [address] [address] [address] Santhosh Francois HDL NORMAL > or = 60 mg/dl - LO W CARDIOVASCULAR RISK <40 mg/dl - HIGH CARDIOVASCULAR RISK Normal [facility] Comment on above: Performed By: #### CBC #### [facility] [address] [address] [address] Santhosh Francois LDL CALC NORMAL SEE BELOW Normal [facility] Comment on above: Result Comment: <100 mg/dl OPTIMAL 100 - 129 mg/dl NEAR OR ABOVE OPTIMAL 130 - 159 mg/dl BORDERLINE HIGH 160 - 189 mg/dl HIGH >190 mg/dl VERY HIGH Performed By: #### C BC #### [facility] [address] [address] [address] Santhosh Francois Triglyceride [Mass/Vol] 30 mg/dL Normal <=150 [facility] Comment on above: Performed By: #### CBC #### [facility] [address] [place] [address] Dr. Santhosh Francois VLDL CALC 6.0 mg/dL Normal [facility] Comment on above: Performed By: #### CBC #### [facility] [address] [address] [address] Santhosh Francois PROF 14(COMP METB)on 022 Albumin [Mass/Vol] 3.6 g/dL Normal 3.4-5.0 [facility] Comment on above: Performed By: #### CBC #### [facility] [address] [place] [address] Dr. Santhosh Francois Albumin/Globuli n [Mass ratio] 1.1 {ratio} Normal [facility] Comment on above: Performed By: #### CBC #### [facility] [address] [place] [address] Dr. Santhosh Francois ALP [Catalytic activity/Vol] 145 U/L Critically high 46-116 [facility] Comment on above: Performed By: #### CBC #### [facility] [address] [place] [address] Dr. Santhosh Francois ALT [Catalytic activity/Vol] 102 U/L Critically high 16-63 [facility] Comment on above: Performed By: #### CBC #### [facility] [address] [place] [address] Dr. Santhosh Francois Anion gap [Moles/Vol] 12.7 mmol/L Normal [facility] Comment on above: Performed By: #### CBC #### [facility] [address] [place] [address] Dr. Santhosh Francois AST [Catalytic activity/Vol] 68 U/L Critically high 15-37 [facility] Comment on above: Performed By: #### CBC #### [facility] [address] [place] [address] Dr. Santhosh Francois Bilirubin [Mass/Vol] 1.0 mg/dL Normal 0.2-1.0 [facility] Comment on above: Performed By: #### CBC #### [facility] [address] [address] [address] Santhosh Francois Calcium [Mass/Vol] 8.0 mg/dL Critically low 8.5-10.1 [facility] Comment on above: Performed By: #### CBC #### [facility] [address] [address] [address] Santhosh Francois Chloride [Moles/Vol] 111 mmol/L Critically high 98-107 [facility] Comment on above: Performed By: #### CBC #### [facility] [address] [address] [address] Santhosh Francois CO2 [Moles/Vol] 20.6 mmol/L Critically low 21.0-32.0 [facility] Comment on above: Performed By: #### CBC #### [facility] [address] [place] [address] Dr. Santhosh Francois Creatinine [Mass/Vol] 0.96 mg/dL Normal 0.70-1.30 [facility] Comment on above: Performed By: #### CBC #### [facility] [address] [place] [address] Dr. Santhosh Francois EGFR-AF PERUVIAN >60 Normal >=60 [facility] Comment on above: Performed By: #### CBC #### [facility] [address] [place] [address] Dr. Santhosh Francois EGFR-NON AF PERUVIAN >60 Normal >=60 [facility] Comment on above: Performed By: #### CBC #### [facility] [address] [place] [address] Dr. Santhosh Francois Globulin (S) [Mass/Vol] 3.2 g/dL Normal [facility] Comment on above: Performed By: #### CBC #### [facility] [address] [place] [address] Dr. Santhosh Francois Glucose [Mass/Vol] 88 mg/dL Normal 74-106 [facility] Comment on above: Performed By: #### CBC #### [facility] [address] [place] [address] Dr. Santhosh Francois Potassium [Moles/Vol] 4.3 mmol/L Normal 3.5-5.1 [facility] Comment on above: Performed By: #### CBC #### [facility] [address] [place] [address] Dr. Santhosh Francois Protein [Mass/Vol] 6.8 g/dL Normal 6.4-8.2 [facility] Comment on above: Performed By: #### CBC #### [facility] [address] [address] [address] Santhosh Francois Sodium [Moles/Vol] 140 mmol/L Normal 136-145 [facility] Comment on above: Performed By: #### CBC #### [facility] [address] [place] [address] Dr. Santhosh Francois Urea nitrogen [Mass/Vol] 26.0 mg/dL Critically high 7.0-18.0 [facility] Comment on above: Performed By: #### CBC #### [facility] [address] [place] [address] Dr. Santhosh Francois Urea nitrogen/Creati nine [Mass ratio] 27.1 mg/mg Normal [facility] Comment on above: Performed By: #### CBC #### [facility] [address] [place] [address] Dr. Santhosh Francois ED Note-Physicianon 05-07-20 ED Note-Physician [id number]:[address] [facility] RAD - CT Reporton 05-06-2022 RAD - CT Report [id number]#[id number]:[address] [facility] CBC AUTO DIFFon 04-30-2022 BASO # 0.0 103/ul Normal 0.0-0.1 [facility] Comment on above: Performed By: #### CBC #### [facility] [address] [place] [address] Dr. Santhosh Francois Basophils/100 WBC (Bld) 0.5 % Normal 0.2-2.0 [facility] Comment on above: Performed By: #### CBC #### [facility] [address] [place] [address] Dr. Santhosh Francois EO # 0.2 103/ul Normal 0.0-0.7 [facility] Comment on above: Performed By: #### CBC #### [facility] [address] [address] [address] Santhosh Francois Eosinophils/100 WBC (Bld) 2.9 % Normal 0.9-7.0 [facility] Comment on above: Performed By: #### CBC #### [facility] [address] [place] [address] Dr. Santhosh Francois Erythrocyte distribution width (RBC) [Ratio] 14.9 % Normal 11.0-15.0 [facility] Comment on above: Performed By: #### CBC #### [facility] [address] [place] [address] Dr. Santhosh Francois Hematocrit (Bld) [Volume fraction] 39.1 % Critically low 42.0-54.0 [facility] Comment on above: Performed By: #### CBC #### [facility] [address] [place] [address] Dr. Santhosh Francois Hemoglobin (Bld) [Mass/Vol] 12.2 g/dL Critically low 14.0-18.0 [facility] Comment on above: Performed By: #### CBC #### [facility] [address] [place] [address] Dr. Santhosh Francois IG # 0.01 10e3/ul Normal 0.00-0.03 [facility] Comment on above: Performed By: #### CBC #### [facility] [address] [place] [address] Dr. Santhosh Francois IG % 0.2 % Normal 0.0-0.5 [facility] Comment on above: Performed By: #### CBC #### [facility] [address] [place] [address] Dr. Santhosh Francois LYMPH # 2.0 103/ul Normal 1.2-3.8 [facility] Comment on above: Performed By: #### CBC #### [facility] [address] [place] [address] Dr. Santhosh Francois Lymphocytes/100 WBC (Bld) 32.6 % Normal 20.5-60.0 [facility] Comment on above: Performed By: #### CBC #### [facility] [address] [place] [address] Dr. Santhosh Francois MANUAL DIFF REQ NO Normal [facility] Comment on above: Performed By: #### CBC #### [facility] [address] [place] [address] Dr. Santhosh Francois MCH (RBC) [Entitic mass] 29.9 pg Normal 25.9-34.0 [facility] Comment on above: Performed By: #### CBC #### [facility] [address] [place] [address] Dr. Santhosh Francois MCHC (RBC) [Mass/Vol] 31.2 g/dL Normal 29.9-35.2 [facility] Comment on above: Performed By: #### CBC #### [facility] [address] [place] [address] Dr. Santhosh Francois MCV (RBC) [Entitic vol] 95.8 fL Critically high 80.0-94.0 [facility] Comment on above: Performed By: #### CBC #### [facility] Laboratory [address] [place] [address] Dr. Santhosh Francois MONO # 0.5 103/ul Normal 0.3-0.8 [facility] Comment on above: Performed By: #### CBC #### [facility] [address] [place] [address] Dr. Santhosh Francois Monocytes/100 WBC (Bld) 7.9 % Normal 1.7-12.0 [facility] Comment on above: Performed By: #### CBC #### [facility] [address] [place] [address] Dr. Santhosh Francois NEUT # 3.5 103/ul Normal 1.4-6.5 [facility] Comment on above: Performed By: #### CBC #### [facility] [address] [place] [address] Dr. Santhosh Francois Neutrophils/100 WBC (Bld) 55.9 % Normal 43.0-75.0 [facility] Comment on above: Performed By: #### CBC #### [facility] [address] [address] [address] Santhosh Francois Platelet mean volume (Bld) [Entitic vol] 10.6 fL Normal 9.5-13.5 [facility] Comment on above: Performed By: #### CBC #### [facility] [address] [address] [address] Santhosh Francois PLT 125 103/ul Critically low 150-450 [facility] Comment on above: Performed By: #### CBC #### [facility] [address] [place] [address] Dr. Santhosh Francois RBC 4.08 106/ul Critically low 4.70-6.10 [facility] Comment on above: Performed By: #### CBC #### [facility] [address] [place] [address] Dr. Santhosh Francois WBC 6.2 103/ul Normal 4.0-11.0 [facility] Comment on above: Performed By: #### CBC #### [facility] [address] [place] [address] ABD/PELVIS WO CONon 04-30 CT [...] CASSIDY DILLON Date: 2022-04-30 18:05 Normal [facility] CULTURE URINEon 04-30-2022 CULTURE URINE Culture Observations : NO GROWTH. Normal [facility] Comment on above: Performed By: #### URCX #### [facility] [address] [place] [address] Dr. Santhosh Francois ER URINE PROFILEon 2 Bilirubin Ql (U) Unable to perform testing due to color interference. Abnormal NEGATIVE [facility] Comment on above: Performed By: #### NICOL CHENG #### [facility] [address] [place] [address] Dr. Santhosh Francois Clarity (U) TURBID Abnormal CLEAR [facility] Comment on above: Performed By: #### MICHELE CHENGRO #### [facility] [address] [place] [address] Dr. Santhosh Francois Color (U) RED Abnormal YELLOW [facility] Comment on above: Performed By: #### MICHELE CHENGRO #### [facility] [address] [place] [address] Dr. Santhosh PALACIOS A micrscopic examina tion will be performed if indicated. Normal [facility] Comment on above: Performed By: #### MICHELE CHENGRO #### [facility] [address] [place] [address] Dr. Santhosh Francois Glucose Ql (U) Unable to perform te sting due to color interference. Abnormal NEGATIVE [facility] Comment on above: Performed By: #### NICOL CHENG #### [facility] [address] [place] [address] Dr. Santhosh Francois Hemoglobin Ql (U) Unable to perform testing due to color interference. Abnormal NEGATIVE [facility] Comment on above: Performed By: #### MICHELE CHENGRO #### [facility] [address] [place] [address] Dr. Santhosh Francois Ketones Ql (U) Unable to perform te sting due to color interference. Abnormal NEGATIVE [facility] Comment on above: Performed By: #### NICOL CHENG #### [facility] [address] [place] [address] Dr. Santhosh Francois LEUKOCYTES Unable to perform te sting due to color interference. Abnormal NEGATIVE [facility] Comment on above: Performed By: #### NICOL CHENG #### [facility] [address] [place] [address] Dr. Santhosh Francois Nitrite Ql (U) Unable to perform te sting due to color interference. Abnormal NEGATIVE [facility] Comment on above: Performed By: #### NICOL CHENG #### [facility] [address] [place] [address] Dr. Santhosh Francois pH (U) 6.0 [pH] Normal 5-9 [facility] Comment on above: Performed By: #### NICOL CHENG #### [facility] [address] [place] [address] Dr. Santhosh Francois SPEC GRAVITY 1.025 Normal 1.005-<=1.02 5 [facility] Comment on above: Performed By: #### NICOL CHENG #### [facility] [address] [place] [address] Dr. Santhosh Francois UA PROTEIN Unable to perform te sting due to color interference. Normal NEGATIVE/ TRACE [facility] Comment on above: Performed By: #### NICOL CHENG #### [facility] [address] [place] [address] Dr. Santhosh Francois UR MICRO IND INDICATED Normal [facility] Comment on above: Performed By: #### NICOL CHENG #### [facility] [address] [place] [address] Dr. Santhosh Francois UROBILINOGEN Unable to perform te sting due to color interference. Normal 0.2 - 1.0 [facility] Comment on above: Performed By: #### NICOL CHENG #### [facility] [address] [place] [address] Dr. Santhosh Francois PROF CHEM 8 (BAS METB)on Anion gap [Moles/Vol] 12.6 mmol/L Normal [facility] Comment on above: Performed By: #### BMP #### [facility] [address] [place] [address] Dr. Santhosh Francois Calcium [Mass/Vol] 7.7 mg/dL Critically low 8.5-10.1 [facility] Comment on above: Performed By: #### BMP #### [facility] [address] [place] [address] Dr. Santhosh Francois Chloride [Moles/Vol] 114 mmol/L Critically high 98-107 [facility] Comment on above: Performed By: #### BMP #### [facility] [address] [place] [address] Dr. Santhosh Francois CO2 [Moles/Vol] 21.1 mmol/L Normal 21.0-32.0 [facility] Comment on above: Performed By: #### BMP #### [facility] [address] [place] [address] Dr. Santhosh Francois Creatinine [Mass/Vol] 1.12 mg/dL Normal 0.70-1.30 [facility] Comment on above: Performed By: #### BMP #### [facility] [address] [place] [address] Dr. Santhosh Francois EGFR-AF PERUVIAN >60 Normal >=60 [facility] Comment on above: Performed By: #### BMP #### [facility] [address] [place] [address] Dr. Santhosh Francois EGFR-NON AF PERUVIAN >60 Normal >=60 [facility] Comment on above: Performed By: #### BMP #### [facility] [address] [address] [address] Santhohs Francois Glucose [Mass/Vol] 90 mg/dL Normal 74-106 [facility] Comment on above: Performed By: #### BMP #### [facility] [address] [address] [address] Santhosh Francois Potassium [Moles/Vol] 3.7 mmol/L Normal 3.5-5.1 [facility] Comment on above: Performed By: #### BMP #### [facility] [address] [address] [address] Santhosh Francois Sodium [Moles/Vol] 144 mmol/L Normal 136-145 [facility] Comment on above: Performed By: #### BMP #### [facility] [address] [place] [address] Dr. Santhosh Francois Urea nitrogen [Mass/Vol] 23.0 mg/dL Critically high 7.0-18.0 [facility] Comment on above: Performed By: #### BMP #### [facility] [address] [place] [address] Dr. Santhosh Francois Urea nitrogen/Creati nine [Mass ratio] 20.5 mg/mg Normal [facility] Comment on above: Performed By: #### BMP #### [facility] [address] [place] [address] Dr. Santhosh Francois URINE MICROSCOPIC ONLYon BACTERIA NONE SEEN Normal NONE SEEN [facility] Comment on above: Performed By: #### SKYLAR UMICRO #### [facility] [address] [place] [address] Dr. Santhosh Francois Bacteria identified Cx Nom (U) NOT INDICATED Normal [facility] Comment on above: Performed By: #### SKYLAR UMICRO #### [facility] [address] [place] [address] Dr. Santhosh Francois CAST NONE SEEN Normal NONE SEEN [facility] Comment on above: Performed By: #### SKYLAR UMICRO #### [facility] [address] [place] [address] Dr. Santhosh Francois Crystals LM Nom (Urine sed) NONE SEEN Normal NONE SEEN [facility] Comment on above: Performed By: #### NICOL CHENG #### [facility] [address] [place] [address] Dr. Santhosh Francois Epithelial cells LM Ql (Urine sed) NONE SEEN Normal NONE SEEN /RARE [facility] Comment on above: Performed By: #### NICOL CHENG #### [facility] [address] [place] [address] Dr. Santhosh Francois MUCOUS NONE SEEN Normal NONE SEEN [facility] Comment on above: Performed By: #### NICOL CHENG #### [facility] [address] [place] [address] Dr. Santhosh Francois RBC (U) [#/Vol] /uL Abnormal 0-2 [facility] Comment on above: Performed By: #### NICOL CHENG #### [facility] [address] [place] [address] Dr. Santhosh Francois WBC 10-20 Abnormal NONE SEEN [facility] Comment on above: Performed By: #### NICOL CHENG #### [facility] [address] [place] [address] Dr. Santhosh Francois CBC AUTO DIFFon 03-07-2022 BASO # 0.1 103/ul Normal 0.0-0.1 [facility] Comment on above: Performed By: #### CBC #### [facility] [address] [place] [address] Dr. Santhosh Francois Basophils/100 WBC (Bld) 0.8 % Normal 0.2-2.0 [facility] Comment on above: Performed By: #### CBC #### [facility] [address] [place] [address] Dr. Santhosh Francois EO # 0.1 103/ul Normal 0.0-0.7 [facility] Comment on above: Performed By: #### CBC #### [facility] [address] [place] [address] Dr. Santhosh Francois Eosinophils/100 WBC (Bld) 1.9 % Normal 0.9-7.0 [facility] Comment on above: Performed By: #### CBC #### [facility] [address] [place] [address] Dr. Santhosh Francois Erythrocyte distribution width (RBC) [Ratio] 16.4 % Critically high 11.0-15.0 [facility] Comment on above: Performed By: #### CBC #### [facility] [address] [place] [address] Dr. Santhosh Francois Hematocrit (Bld) [Volume fraction] 43.0 % Normal 42.0-54.0 [facility] Comment on above: Performed By: #### CBC #### [facility] [address] [place] [address] Dr. Santhosh Francois Hemoglobin (Bld) [Mass/Vol] 13.4 g/dL Critically low 14.0-18.0 [facility] Comment on above: Performed By: #### CBC #### [facility] [address] [place] [address] Dr. Santhosh Francois IG # 0.02 10e3/ul Normal 0.00-0.03 [facility] Comment on above: Performed By: #### CBC #### [facility] [address] [place] [address] Dr. Santhosh Francois IG % 0.3 % Normal 0.0-0.5 [facility] Comment on above: Performed By: #### CBC #### [facility] [address] [place] [address] Dr. Santhosh Francois LYMPH # 1.8 103/ul Normal 1.2-3.8 [facility] Comment on above: Performed By: #### CBC #### [facility] [address] [place] [address] Dr. Santhosh Francois Lymphocytes/100 WBC (Bld) 29.2 % Normal 20.5-60.0 [facility] Comment on above: Performed By: #### CBC #### [facility] [address] [place] [address] Dr. Santhosh Francois MANUAL DIFF REQ NO Normal [facility] Comment on above: Performed By: #### CBC #### [facility] [address] [address] [address] Santhosh Francois MCH (RBC) [Entitic mass] 30.5 pg Normal 25.9-34.0 [facility] Comment on above: Performed By: #### CBC #### [facility] [address] [address] [address] Santhosh Francois MCHC (RBC) [Mass/Vol] 31.2 g/dL Normal 29.9-35.2 [facility] Comment on above: Performed By: #### CBC #### [facility] [address] [address] [address] Santhosh Francois MCV (RBC) [Entitic vol] 97.9 fL Critically high 80.0-94.0 [facility] Comment on above: Performed By: #### CBC #### [facility] [address] [place] [address] Dr. Santhosh Francois MONO # 0.4 103/ul Normal 0.3-0.8 [facility] Comment on above: Performed By: #### CBC #### [facility] [address] [address] [address] Santhosh Francois Monocytes/100 WBC (Bld) 6.3 % Normal 1.7-12.0 [facility] Comment on above: Performed By: #### CBC #### [facility] [address] [address] [address] Santhosh Francois NEUT # 3.8 103/ul Normal 1.4-6.5 [facility] Comment on above: Performed By: #### CBC #### [facility] [address] [address] [address] Santhosh Francois Neutrophils/100 WBC (Bld) 61.5 % Normal 43.0-75.0 [facility] Comment on above: Performed By: #### CBC #### [facility] [address] [place] [address] Dr. Santhosh Frnacois Platelet mean volume (Bld) [Entitic vol] 10.5 fL Normal 9.5-13.5 [facility] Comment on above: Performed By: #### CBC #### [facility] [address] [address] [address] Santhosh Francois PLT 148 103/ul Critically low 150-450 [facility] Comment on above: Performed By: #### CBC #### [facility] [address] [place] [address] Dr. Santhosh Francois RBC 4.39 106/ul Critically low 4.70-6.10 [facility] Comment on above: Performed By: #### CBC #### [facility] [address] [place] [address] Dr. Santhosh Francois WBC 6.2 103/ul Normal 4.0-11.0 [facility] Comment on above: Performed By: #### CBC #### [facility] [address] [place] [address] Dr. Santhosh Francois IRONon 03-07-2022 Iron [Mass/Vol] 125.0 ug/dL Normal 65.0-175.0 [facility] Comment on above: Performed By: #### IRON #### [facility] [address] [place] [address] Dr. Santhosh Francois CBC AUTO DIFFon 12-03-2021 BASO # 0.0 103/ul Normal 0.0-0.1 [facility] Comment on above: Performed By: #### CBC #### [facility] [address] [place] [address] Dr. Santhosh Francois Basophils/100 WBC (Bld) 0.7 % Normal 0.2-2.0 [facility] Comment on above: Performed By: #### CBC #### [facility] [address] [place] [address] Dr. Santhosh Francois EO # 0.2 103/ul Normal 0.0-0.7 [facility] Comment on above: Performed By: #### CBC #### [facility] [address] [place] [address] Dr. Santhosh Francois Eosinophils/100 WBC (Bld) 3.1 % Normal 0.9-7.0 [facility] Comment on above: Performed By: #### CBC #### [facility] [address] [place] [address] Dr. Santhosh Francois Hematocrit (Bld) [Volume fraction] 40.4 % Critically low 42.0-54.0 [facility] Comment on above: Performed By: #### CBC #### [facility] [address] [place] [address] Dr. Santhosh Francois Hemoglobin (Bld) [Mass/Vol] 11.5 g/dL Critically low 14.0-18.0 [facility] Comment on above: Performed By: #### CBC #### [facility] [address] [place] [address] Dr. Santhosh Francois IG # 0.01 10e3/ul Normal 0.00-0.03 [facility] Comment on above: Performed By: #### CBC #### [facility] [address] [place] [address] Dr. Santhosh Francois IG % 0.2 % Normal 0.0-0.5 [facility] Comment on above: Performed By: #### CBC #### [facility] [address] [place] [address] Dr. Santhosh Francois LYMPH # 2.0 103/ul Normal 1.2-3.8 [facility] Comment on above: Performed By: #### CBC #### [facility] [address] [place] [address] Dr. Santhosh Francois Lymphocytes/100 WBC (Bld) 33.9 % Normal 20.5-60.0 [facility] Comment on above: Performed By: #### CBC #### [facility] [address] [place] [address] Dr. Santhosh Francois MANUAL DIFF REQ NO Normal [facility] Comment on above: Performed By: #### CBC #### [facility] [address] [place] [address] Dr. Santhosh Francois MCH (RBC) [Entitic mass] 24.1 pg Critically low 25.9-34.0 [facility] Comment on above: Performed By: #### CBC #### [facility] [address] [place] [address] Dr. Santhosh Francois MCHC (RBC) [Mass/Vol] 28.5 g/dL Critically low 29.9-35.2 [facility] Comment on above: Performed By: #### CBC #### [facility] [address] [place] [address] Dr. Santhosh Francois MCV (RBC) [Entitic vol] 84.5 fL Normal 80.0-94.0 [facility] Comment on above: Performed By: #### CBC #### [facility] [address] [place] [address] Dr. Santhosh Francois MONO # 0.4 103/ul Normal 0.3-0.8 [facility] Comment on above: Performed By: #### CBC #### [facility] [address] [place] [address] Dr. Santhosh Francois Monocytes/100 WBC (Bld) 7.7 % Normal 1.7-12.0 [facility] Comment on above: Performed By: #### CBC #### [facility] [address] [place] [address] Dr. Santhosh Francois NEUT # 3.1 103/ul Normal 1.4-6.5 [facility] Comment on above: Performed By: #### CBC #### [facility] [address] [place] [address] Dr. Santhosh Francois Neutrophils/100 WBC (Bld) 54.4 % Normal 43.0-75.0 [facility] Comment on above: Performed By: #### CBC #### [facility] [address] [place] [address] Dr. Santhosh Francois Platelet mean volume (Bld) [Entitic vol] 10.0 fL Normal 9.5-13.5 [facility] Comment on above: Performed By: #### CBC #### [facility] [address] [place] [address] Dr. Santhosh Francois PLT 191 103/ul Normal 150-450 [facility] Comment on above: Performed By: #### CBC #### [facility] [address] [place] [address] Dr. Santhosh Francois RBC 4.78 106/ul Normal 4.70-6.10 [facility] Comment on above: Performed By: #### CBC #### [facility] [address] [place], [place] [address] Dr. Santhosh Francois WBC 5.8 103/ul Normal 4.0-11.0 [facility] Comment on above: Performed By: #### CBC #### [facility] [address] [place], [place] [address] Dr. Santhosh Francois MR prostate wo/w conon 09-17 MR prostate wo/w con [facility] [place] [address] MRI Report Signed Patient: Shabnam Burgess MR#: [id number] : 1955 Acct:[id number] Age/Sex: 65 / M ADM Date: 09/16/21 Loc: MR Room: Type: [facility] Attending Dr: Puneet Briggs MD Ordering Provider: [...] AM COT by: Tomy Garza MD Diplomate, [place] [employer] Report Completed: Sep 17, 2021 10:46:46 AM COT This transmission is proprietary, privileged and confidential. It is intended to be communication only for the use of the addressee; access to this message by anyone else is unaut Transcribed By: 09/17/21 1348 Dictated By: NON STAFF 09/17/21 1046 Signed By: 09/17/21 1349 Normal [facility] Blood Urea Nitrogenon 2020 Urea nitrogen [Mass/Vol] 21 mg/dL Normal 9-23 [facility] Comment on above: Order Comment: STAT FOR MRI Performed By: #### C MITCHELL POLK #### [facility] [address] [id number] [facility] Creatinineon 09-03-2021 Creatinine [Mass/Vol] 1.01 mg/dL Normal 0.64-1.27 [facility] Comment on above: Order Comment: STAT FOR MRI Performed By: #### C REAT, BUN #### [facility] [address] [place] [address] [place] Creatinine Clr Calc Pharmacy 90.06 [facility] Comment on above: Order Comment: STAT FOR MRI Result Comment: PERF ORMED BY: [place] [address] PATHOLOGIST UPHOLSTERER HELPER TONNY ZHOU M.D. Performed By: #### C REAT, BUN #### [address] Estimated GFR ( Teresita > 60 [facility] Comment on above: Order Comment: STAT FOR MRI Result Comment: GFR estimated reference range: According to KDOQI guidelines, <60 ml/min/1.73m2 is sufficient to diagnose a patient with chronic kidney disease. Performed By: #### C REAT, BUN #### [facility] [address] [place] [address] Estimated GFR (Non- Am > 60 [facility] Comment on above: Order Comment: STAT FOR MRI Performed By: #### C REAT, BUN #### [facility] [address] [place], [place] [id number] [place] Ironon 04-15-2019 Iron [Mass/Vol] 22 ug/dL Low 59-[address] [facility] Comment on above: Performed By: #### CP #### [facility] [address] [place], [place] [id number] Home Health Specialist: Frank Mercado MD #### B12, FE #### [facility] [address] [place], [place] [id number] Home Health Specialist: Rainer Araujo MD Vitamin B12on 04-15-2019 Cobalamin (Vitamin B12) [Mass/Vol] 1062 pg/mL Normal 232-1245 [facility] Comment on above: Performed By: #### CP #### [facility] [address] [place], [place] [id number] Home Health Specialist: Frank Mercado MD #### B12, FE #### [address] [id number] Home Health Specialist: Rainer Araujo MD Comp Metabolic Profon 2018 Albumin [Mass/Vol] 4.2 g/dL Normal 3.5-5.2 [facility] Comment on above: Performed By: #### CP #### [facility] [address] [place], [place] [id number] Home Health Specialist: Frank Mercado MD #### B12, FE #### [address] [address] Home Health Specialist: Rainer Araujo MD Albumin/Globuli n [Mass ratio] 1.6 {ratio} Normal 1.0-2.5 [facility] Comment on above: Performed By: #### CP #### [facility] [address] [place] [id number] Home Health Specialist: Frank Mercado MD #### B12, FE #### [address] [address] Home Health Specialist: Rainer Araujo MD Alkaline Phos 120 U/L Normal 40-129 [facility] Comment on above: Performed By: #### CP #### [facility] [address] [place] [address] Home Health Specialist: Frank Mercado MD #### B12, FE #### [facility] [address] [place] [address] Home Health Specialist: Rainer Araujo MD Bilirubin Ql (U) 0.72 mg/dL Normal 0.3-1.2 [facility] Comment on above: Performed By: #### CP #### [address] [place] [address] Home Health Specialist: Frank Mercado MD #### B12, FE #### [facility] [address] [place] [address] Home Health Specialist: Rainer Araujo MD Protein [Mass/Vol] 6.8 g/dL Normal 6.4-8.3 [facility] Comment on above: Performed By: #### CP #### [address] [place], [place] [id number] Home Health Specialist: Frank Mercado MD #### B12, FE #### [address] [place] [address] Home Health Specialist: Rainer Araujo MD (cont.) [facility] Comment on above: Result Comment: Average GFR for 60-69 ye ars old: 85 mL/min/1.73sq m Chronic Kidney Disease: <60 mL/min/1.73sq m Kidney failure: <15 mL/min/1.73sq m eGFR calculated using average adult body mass. Additional eGFR calculator available at: http://www.Neohapsis/multiple_crcl_2011.htm Performed By: #### C P #### [address] [place], [place] [id number] Home Health Specialist: Frank Mercado MD #### B12, FE #### [facility] [address] [place] [address] Home Health Specialist: Rainer Araujo MD ALT [Catalytic activity/Vol] 29 U/L Normal 5-41 [facility] Comment on above: Performed By: #### CP #### [address] [place], [place] [id number] Home Health Specialist: Frank Mercado MD #### B12, FE #### [address] [place] [address] Home Health Specialist: Rainer Araujo MD Anion gap [Moles/Vol] 10 mmol/L Normal [facility] Comment on above: Performed By: #### CP #### [facility] [address] [place] [address] Home Health Specialist: Frank Mercado MD #### B12, FE #### [address] [address] Home Health Specialist: Rainer Araujo MD AST [Catalytic activity/Vol] 26 U/L Normal <40 [facility] Comment on above: Performed By: #### CP #### [facility] [address] [place] [address] Home Health Specialist: Frank Mercado MD #### B12, FE #### [address] [address] Home Health Specialist: Rainer Araujo MD BUN/CRE Ratio 24 High 9-20 [facility] Comment on above: Performed By: #### CP #### [facility] [address] [place] [address] [place] [address] Home Health Specialist: Frank Mercado MD #### B12, FE #### [address] [address] Home Health Specialist: Rainer Araujo MD Calcium [Mass/Vol] 8.2 mg/dL Low 8.6-10.4 [facility] Comment on above: Performed By: #### CP #### [facility] [address] [place] [address] Home Health Specialist: Frank Mercado MD #### B12, FE #### [address] [address] Home Health Specialist: Rainer Araujo MD Chloride [Moles/Vol] 115 mmol/L High 98-107 [facility] Comment on above: Performed By: #### CP #### [facility] [address] [place] [address] Home Health Specialist: Frank Mercado MD #### B12, FE #### [facility] [address] [place] [address] Home Health Specialist: Rainer Araujo MD CO2 [Moles/Vol] 17 mmol/L Low 20-[address] [facility] Comment on above: Performed By: #### CP #### [facility] [address] [place], [place] 9[address]83 Home Health Specialist: Frank Mercado MD #### B12, FE #### [address] [address] Home Health Specialist: Rainer Araujo MD Creatinine [Mass/Vol] 1.11 mg/dL Normal 0.70-1.20 [facility] Comment on above: Performed By: #### CP #### [facility] [address] [place] [address] [place], [place] [id number] Home Health Specialist: Frank Mercado MD #### B12, FE #### [address] [address] Home Health Specialist: Rainer Araujo MD GFR, Amer >60 Normal >60 [facility] Comment on above: Performed By: #### CP #### [facility] [address] [place] [address] [place], [place] [id number] Home Health Specialist: Frank Mercado MD #### B12, FE #### [address] [address] Home Health Specialist: Rainer Araujo MD GFR,non Amer >60 Normal >60 [facility] Comment on above: Performed By: #### CP #### [facility] [address] [place] [address] Home Health Specialist: Frank Mercado MD #### B12, FE #### [facility] [address] [place] [address] Home Health Specialist: Rainer Araujo MD Glucose [Mass/Vol] 103 mg/dL High 70-99 [facility] Comment on above: Performed By: #### CP #### [facility] [address] [place], [place] 5977383 Home Health Specialist: Frank Mercado MD #### B12, FE #### [address] [address] Home Health Specialist: Rainer Araujo MD Potassium [Moles/Vol] 4.1 mmol/L Normal 3.7-5.3 [facility] Comment on above: Performed By: #### CP #### [address] [place], [place] 568[address]83 Home Health Specialist: Frank Mercado MD #### B12, FE #### [address] [address] Home Health Specialist: Rainer Araujo MD Sodium [Moles/Vol] 142 mmol/L Normal 135-144 [facility] Comment on above: Performed By: #### CP #### [address] [place], [place] 988[address]83 Home Health Specialist: Frank Mercado MD #### B12, FE #### [address] [address] Home Health Specialist: Rainer Araujo MD Staging: Normal [facility] Comment on above: Result Comment: Stage 1: Some kidney dam age normal GFR Stage 2: Mild kidney damage GFR 60-89 Stage 3: Moderate kidney damage GFR 30-59 Stage 4: Severe kidney damage GFR 15-29 Stage 5: Severe kidney damage GFR <15 ESRD - chronic treatment by dialysis or transplant Performed By: #### C P #### [facility] [address] [place], [place] 730[address]83 Home Health Specialist: Frank Mercado MD #### B12, FE #### [address] [address] Home Health Specialist: Rainer Araujo MD Urea nitrogen [Mass/Vol] 27 mg/dL High 8-23 [facility] Comment on above: Performed By: #### CP #### [facility] [address] [place] [address] Home Health Specialist: Frank Mercado MD #### B12, FE #### [facility] [address] [place] [address] Home Health Specialist: Rainer Araujo MD Vital Signs Date Time Vital Sign Value Performing Clinician Facility 11-04-2023 15:54-0500 Body height 177.8 cm Park Mikez SPECIAL EDUCATION TUTOR Work Phone: [facility] 11-04-2023 15:54-0500 Body mass index (BMI) [Ratio] 34.47 kg/m2 Park Aichholz SPECIAL EDUCATION TUTOR Work Phone: [facility] 11-04-2023 15:54-0500 Body temperature 97.11 [degF] Park Aichholz SPECIAL EDUCATION TUTOR Work Phone: [facility] 11-04-2023 15:54-0500 Body weight 108.95 kg Park Aichholz SPECIAL EDUCATION TUTOR Work Phone: [facility] 11-04-2023 15:54-0500 Diastolic blood pressure 78 mm[Hg] Park Aichholz SPECIAL EDUCATION TUTOR Work Phone: [facility] 11-04-2023 15:54-0500 Heart rate 66 /min Park Aichholz SPECIAL EDUCATION TUTOR Work Phone: [facility] 11-04-2023 15:54-0500 Respiratory rate 18 /min Park Aichholz SPECIAL EDUCATION TUTOR Work Phone: [facility] 11-04-2023 15:54-0500 SaO2% (BldA) [Mass fraction] 97 % Park Aichholz SPECIAL EDUCATION TUTOR Work Phone: [facility] 11-04-2023 15:54-0500 Systolic blood pressure 118 mm[Hg] Park Aichholz SPECIAL EDUCATION TUTOR Work Phone: [facility] 10-19-2023 15:01-0500 Blood Pressure Location Puneet BRIGGS [facility] 10-19-2023 15:01-0500 Diastolic blood pressure 60 mm[Hg] Puneet BRIGGS [facility] 10-19-2023 15:01-0500 Heart rate 64 /min Puneet BRIGGS [facility] 10-19-2023 15:01-0500 Respiratory rate 16 /min Puneet BRIGGS [facility] 10-19-2023 15:01-0500 Systolic blood pressure 109 mm[Hg] Puneet BRIGGS [facility] 04-13-2023 15:59-0400 Blood Pressure Location Puneet BRIGGS [facility] 04-13-2023 15:59-0400 Diastolic blood pressure 80 mm[Hg] Puneet BRIGGS [facility] 04-13-2023 15:59-0400 Heart rate 68 /min Puneet BRIGGS [facility] 04-13-2023 15:59-0400 Respiratory rate 16 /min Puneet BRIGGS [facility] 04-13-2023 15:59-0400 Systolic blood pressure 130 mm[Hg] Puneet BRIGGS [facility] 11-04-2022 14:37-0500 Blood Pressure Location Puneet BRIGGS [facility] 11-04-2022 14:37-0500 Diastolic blood pressure 69 mm[Hg] Puneetyann BRIGGS [facility] 11-04-2022 14:37-0500 Heart rate 68 /min Puneet BRIGGS [facility] 11-04-2022 14:37-0500 Systolic blood pressure 118 mm[Hg] Puneet BRIGGS [facility] 05-19-2022 15:59-0400 Blood Pressure Location Puneetyann BRIGGS [facility] 05-19-2022 15:59-0400 Diastolic blood pressure 66 mm[Hg] Puneet BRIGGS [facility] 05-19-2022 15:59-0400 Heart rate 59 /min Puneetyann BRIGGS 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); BMI 37.0-37.9, adult; Nonischemic cardiomyopathy (CMS/HCC); Primary hypertension (CMS/HCC); Chronic systolic heart failure (CMS/HCC); H/O bariatric surgery; Mixed hyperlipidemia (CMS/HCC) Start: 11-04-2023 Bamboo flowsheet Park Yoder SPECIAL EDUCATION TUTOR Work Phone: [facility] Start: 11-04-2023 Bamboo flowsheet Park Yoder SPECIAL EDUCATION TUTOR Work Phone: [facility] Start: 10-19-2023 ambulatory Puneet Dykesi ty:[facility] [place] Start: 10-19-2023 End: 10-19-2023 Patient encounter procedure Puneet BRIGGS [facility] Start: 04-13-2023 End: 04-14-2023 ambulatory Puneet BRIGGS Facility:[facility] [place] Start: 04-13-2023 End: 04-13-2023 Patient encounter procedure Puneet BRIGGS [facility] Start: 03-18-2023 End: 03-19-2023 ambulatory Puneet BRIGGS Facility:[facility] [place] Start: 03-18-2023 End: 03-18-2023 Patient encounter procedure Puneet BRIGGS [facility] Start: 11-24-2022 ambulatory Puneet Dykesi ty:[facility] [place] Start: 11-21-2022 End: 11-22-2022 ambulatory FINANCIAL ACCOUNTANT PARK YODER Facility:[facility] Start: 11-04-2022 End: 11-05-2022 ambulatory Puneet BRIGGS Facility:[facility] [place] Start: 11-04-2022 End: 11-04-2022 Patient encounter procedure Puneet BRIGGS [facility] Start: 09-12-2022 End: 09-12-2022 ambulatory DEANNE OBRIEN . Facility:[facility] Start: 05-19-2022 End: 05-20-2022 ambulatory Puneet BRIGGS Facility:[facility] Start: 05-19-2022 End: 05-19-2022 Patient encounter procedure Puneet BRIGGS [facility] Start: 05-16-2022 End: 05-17-[address] DOCTOR HOWE Facility:[facility] Start: 04-30-2022 End: 04-30-[address] CASSIDY DILLON Facility:[facility] Start: 03-07-2022 End: 03-08-2022 ambulatory LILIANA YODER Facility:[facility] Start: 01-01-2022 End: 01-01-2022 Patient encounter procedure Ary ARTEAGA General Surgery N[facility] [place] Start: 12-18-2021 End: 12-18-[address] ARY ARTEAGA . Facility:[facility] Start: 12-14-2021 ambulatory LILIANA YODER Facil ity:[facility] Start: 12-03-2021 End: 12-04-2021 ambulatory LILIANA YODER Facility:[facility] Start: 04-14-2019 End: 04-15-2019 Patient encounter procedure PARK YODER [facility] Start: 01-28-2018 End: 01-29-2018 Ambulatory DEFAULT PHYSICIAN Facility:[facility] Procedures Date Procedure Procedure Detail Performing Clinician Start: 11-21-[address] PUNEET BRIGGS . Comment on above: Performed By: #### PSAD #### [facility] [address] [place] [address] Dr. Santhosh Francois Start: 11-04-2022 Cystoscopy Puneet BRIGGS Start: 05-16-[address] PUNEET BRIGGS . Comment on above: Performed By: #### PSAD #### [facility] [address] [address] [address] Santhosh Francois Start: 12-18-2021 Colonoscopy Ary NILL Start: 12-18-2021 Esophagogastroduodenoscopy Ary NILL Start: 11-14-2021 MRI-US fusion guided transrectal biopsy of prostate Ary PRICEL Start: 03-27-2021 Transrectal biopsy of prostate using ultrasound guidance Ary PRICEL Start: 03-22-2020 Transurethral prostatectomy Ary NILL Start: 04-14-2019 Assay of iron PARK SCHAFFERJESSICAZ Start: 04-14-2019 Comprehensive metabolic panel PARK ABRAHAM OLZ Start: 04-14-2019 Cyanocobalamin vitamin b-12 PARK MATTHHOL Z Start: 01-12-2017 Cystoscope, device (physical object) Ary PRICEL Start: 09-28-1999 Esophagogastrostomy, antesternal or antethoracic Ary NILL Appendectomy Ary NILL Cardiac catheterization Devang PRICEL Cholecystectomy Ary NILL Colonoscopy Ary NILL History of radiofreq uency ablation operation for arrhythmia Ary NILL Lithotripsy Ary NILL Comment on above: x3 Repair of umbilical hernia M ichmike PRICEL Plan of Treatment Date Care Activity Detail Author Start: 12-28-2023 Screening for malign ant neoplasm of colon [facility] Start: 05-29-2023 Influenza vaccination Influenza Vacc ine (#1) [facility] Start: 11-28-1963 Pneumococcal Vaccine : 65+ Years (1 - PCV) Pneumococcal Vaccine: 65+ Years (1 - PCV) [facility] Start: 1957 Screening for malign ant neoplasm of colon [facility] Immunizations Immunization Date Immunization Notes Care Provider Hipolito oneal 08-12-2023 Influenza, High-dose Seasonal, Quadrivalent, Preservative Free Park Yoder NP Work Phone: [facility] 07-29-2021 influenza virus vaccine, unspecified formulation Ary PRAVIN General Surgery [place] 02-13-2021 SARS-CoV-2 (COVID-19 ) mRNA BNT-162b2 vax Puneet BRIGGS [facility] 01-23-2021 SARS-CoV-2 (COVID-19 ) mRNA BNT-162b2 vax Puneet BRIGGS [facility] 09-28-2020 SARS-CoV-2 (COVID-19 ) mRNA BNT-162b2 vax Ary ARTEAGA [facility] [place] 07-02-2020 influenza virus vaccine, unspecified formulation Ary PRICEMara General Surgery [place] Payers Date Payer Category Payer Unknown 1957 Unknown [id number] 1955 Unknown [id number] 2.16.84 [id number] 1957 Unknown [id number] 2.16.84 [id number] 1957 Unknown [id number] 2.16.84 [id number] 1957 Unknown [id number] 2.16.84 0.1.170509.3.579.2.593 1957 Unknown [id number] 2.16.84 0.1.753216.3.579.2.593 1957 Unknown [id number] 2.16.84 0.1.988862.3.579.2.593 1957 Unknown [id number] 2.16.84 0.1.977338.3.579.2.593 1957 Unknown [id number] 2.16.84 0.1.537254.3.579.2.593 1957 Unknown [id number] 2.16.84 0.1.510863.3.579.2.593 1957 Unknown [id number] 2.16.8 40.1.649649.3.579.2.727 1957 Unknown [id number] 2.16.8 40.1.259256.3.579.2.727 1957 Unknown [id number] 2.16.8 40.1.137946.3.579.2.727 1957 Unknown [id number] 2.16.8 40.1.570491.3.579.2.727 1957 Unknown [id number] 2.16.8 40.1.686887.3.579.2.727 1957 Unknown [id number] 2.16.8 40.1.361470.3.579.2.727 1957 Unknown [id number] 2.16.84 [id number] Social History Date Type Detail Facility Start: 12-06-2021 End: 10-26-2023 Tobacco smoking status Never smoked tobacco (finding) [facility] Tobacco smoking status Never Gener al Surgery [facility] Start: 10-26-2023 End: 11-04-2023 Sex Assigned At Male General Surgery [facility] Start: 10-19-2023 Tobacco smoking status Light t obacco smoker (finding) [facility] Start: 10-26-2023 End: 11-04-2023 History of Social function [facility] Start: 1955 Sex Assigned At Not on file [facility] Start: 11-04-2023 Alcohol intake Ex-drinker (finding) [facility] Start: 11-04-2023 Alcohol Comment caffine: 3 cups lucretia y [facility] Functional Status Date Assessment Result Facility 10-19-2023 Functional Status Yes [facility] 04-13-2023 Functional Status N/A [facility] 11-04-2022 Functional Status N/A [facility] 05-19-2022 Functional Status N/A [facility] Clinical Notes 12-18-2021 to 11-04-2023 Park Yoder [...] cont current meds documented in this encounter [facility] 10-19-2023 Hospital Discharge instructions Patient Education 10/19/2023 [...] urethra. Follow these instructions at home: Take dosm-kzf-yhjsvwl and prescription medicines only as told by [...] provider. Document Revised: 04/02/2022 Document Reviewed: 04/02/2022 [place] Patient Education 2022 [employer] Follow Up Care 04/13/2023 16:26:55 With:ANAHI MCDONALD, Puneet R, URL Address: [facility] [address] [place] [address]- When:Within 1 Year(s) Comments:w/PSA [facility] [place] 04-13-2023 Hospital Discharge instructions Patient Education [...] under a microscope. This is called the Beaman score and the total score can range from 6 10, indicating how likely it is that the cancer will spread (metastasize) to other parts of the body. The higher the score, the greater the likelihood that the cancer will spread. Beaman 6 or lower: This indicates that the cancer cells look similar to normal prostate cells (well differentiated). Marixa 7: This indicates that the cancer cells look somewhat similar to normal prostate cells (moderately differentiated). Beaman 8, 9, or 10: This indicates that [...] stress of having cancer. General instructions Take lcsy-dqb-fopzazg and prescription medicines only as told by your health care provider. If you have to go to the hospital, notify your cancer specialist (oncologist). Keep all follow-up visits. This is important. Where to find more information [place] [employer]: www.cancer.org [place] [employer]: www.cancer.net National Cancer [place]: www.cancer.gov Contact a health care provider if: [...] provider. Document Revised: 12/11/2021 Document Reviewed: 12/11/2021 [place] Patient Education 2022 [employer]. Follow Up Care 03/16/2023 14:05:40 With:ANAHI MCDONALD, Puneet Ross, URL Address: [facility] [address] [place] [phone] When: Unknown Comments:6 mos w/ PSA and PVR [facility] 11-03-2022 Hospital Discharge instructions Patient Education 11/03/2022 [...] urethra. Follow these instructions at home: Take yvkq-vzq-tdbcpra and prescription medicines only as told by [...] 09/14/2006 Document Revised: 08/09/2019 Document Reviewed: 10/19/2017 [place] Patient Education [employer] Follow Up Care 10/13/2022 13:53:44 With:ANAHI MCDONALD, Puneet Ross, URL Address: [facility] [address] [place] [address]- When: Unknown [facility] [place] 05-19-2022 Hospital Discharge instructions Patient Education 05/19/2022 16:24:13 Prostatitis, Zicj-xr-Rewv Prostatitis Prostatitis is swelling of the prostate gland. The prostate helps to make semen. It is below a man's bladder, in front of the rectum. There are different types of prostatitis. Follow these instructions at home: Take xygl-ctz-bzwcklk and prescription medicines only as told by [...] 03/15/2013 Document Revised: 08/27/2018 Document Reviewed: 06/04/2017 [place] Patient [place]ong 05/19/2022 16:24:11 Calorie Counting for Weight Loss [...] 09/14/2006 Document Revised: 06/03/2019 Document Reviewed: 08/14/2017 [place] Patient Education 2020 [employer]. Follow Up Care 11/22/2021 12:25:13 With:ANAHI MCDONALD, Puneet Ross, URL Address: [address] [place], [place] [id number]- Business (1) When:Within 6 Month(s) Comments:w/FESTUS [facility] 12-18-2021 Note OPERATIVE NOTE PREOPERATIVE DIAGNOSIS: Iron [...] to the poor prep. CC: Park Yoder, [facility] Signed and Approved by: DR ARY ARTEAGA . 12/20/2021 11:57:00 [facility] Evaluation + Plan note Future Appointments Appointment Date:05/19/2022 03:15:00 PM Scheduled Provider:Puneet BRIGGS MD Location:[facility] Appointment Type:URO Office Visit General Surgery [place] Evaluation + Plan note Future Appointments Appointment Date:11/24/2022 03:30:00 PM Scheduled Provider:Puneet BRIGGS MD Location:[facility] Appointment Type:URO Office Visit Diagnostic Tests PendingPSA Total 05/19/22 [facility] Evaluation + Plan note Future Appointments Appointment Date:03/18/2023 08:30:00 AM Scheduled Provider:Puneet BRIGGS MD Location:[facility] Appointment Type:URO Office Visit Diagnostic Tests PendingUroVysion Fish and Urine Cyto ([facility]) 11/04/22 [facility] Evaluation + Plan note Future Appointments Appointment Date:03/23/2023 03:00:00 PM Scheduled Provider:Puneet BRIGGS MD Location:[facility] Appointment Type:URO Office Visit [facility] [place] Evaluation + Plan note Future Appointments Appointment Date:10/19/2023 02:45:00 PM Scheduled Provider:Puneet BRIGGS MD Location:[facility] Appointment Type:URO Office Visit Diagnostic Tests PendingPSA Total 04/13/23 [facility] Evaluation + Plan note Future Appointments Appointment Date:10/24/2024 03:00:00 PM Scheduled Provider:Puneet BRIGGS MD Location:[facility] Appointment Type:URO Office Visit Diagnostic Tests PendingPSA Total 10/19/23 [facility] Evaluation note Diagnosis Iron deficiency anemia following bariatric surgery- Primary BMI 37.0-37.9, adult Nonischemic cardiomyopathy (CMS/HCC) Other primary cardiomyopathies Primary hypertension (CMS/HCC) Unspecified essential hypertension Chronic systolic heart failure (CMS/HCC) Chronic systolic heart failure H/O bariatric surgery Mixed hyperlipidemia (CMS/HCC) Mixed hyperlipidemia [facility] Narr[facility] No data available for this section General Surgery [facility] Discharge instructions No data available for this section General Surgery Geraldine Animalvitae Progress note No data available for this section [facility] Summary Purpose Family History No Family History [...] section and content) DATE CREATED AUTHOR 03/18/2018 [facility] DATE CREATED AUTHOR AUTHOR'S ORGANIZ ATION 04/15/2019 [facility] DATE CREATED AUTHOR AUTHOR'S ORGANIZ ATION 12/16/2021 [facility] DATE CREATED AUTHOR AUTHOR'S ORGANIZ ATION 11/28/2022 [facility] DATE CREATED AUTHOR AUTHOR'S ORGANIZ ATION 04/14/2023 [facility] DATE CREATED AUTHOR AUTHOR'S ORGANIZ ATION 11/05/2023 [facility] EPIC Care Team (unrecognized sect ion and content) Garnisher Relationship Specialty Start Date End Date Kenny Hartley MD [address] [place] [id number] PCP - General Family Medicine 10/26/23 Garnisher Relationship Specialty Start Date End Date Kenny Hartley MD [address] [place] [phone] PCP - General Family Medicine 10/26/23 FOR [...] BE BASED ON THE PRIMARY CLINICAL RECORDS. [facility] [employer] provides no warranty or guarantee of the accuracy or completeness of information in this document.
[2024-02-16 16:30] LABS: Basophils Absolute Auto 0.1 10^3/uL (0.0-0.1); Basophils Percent Auto 0.8 % (0.2-2.0); Eosinophils Absolute Auto 0.2 10^3/uL (0.0-0.7); Hematocrit 39.5 % (42.0-54.0); Hemoglobin 12.3 g/dL (14.0-18.0); Immature Granulocytes Abs Auto 0.01 10^3/uL (0.00-0.03); Immature Granulocytes Pct Auto 0.2 % (0.0-0.5); Lymphocytes Absolute Auto 1.9 10^3/uL (1.2-3.8); Lymphocytes Percent Auto 31.3 % (20.5-60.0); Mean Corpuscular HGB Conc 31.1 g/dL (29.9-35.2); Mean Corpuscular Hemoglobin 30.4 pg (25.9-34.0); Mean Corpuscular Volume 97.8 fL (80.0-94.0); Mean Platelet Volume 11.3 fL (9.5-13.5); Monocytes Absolute Auto 0.4 10^3/uL (0.3-0.8); Neutrophils Absolute Auto 3.5 10^3/uL (1.4-6.5); Neutrophils Percent Auto 58.7 % (43.0-75.0); Platelet Count 125 10^3/uL (150-450); Red Blood Count 4.04 10^6/uL (4.70-6.10); Red Cell Distribution Width 17.9 % (11.0-15.0)
[2024-02-16 17:12] LABS: Anion Gap 13.2; BUN Creatinine Ratio 24.1; Calcium 8.2 mg/dL (8.5-10.1); Carbon Dioxide 19.8 mmol/L (21.0-32.0); Chloride 111 mmol/L (98-107); Estimated GFR (African America >60 (>=60); Estimated GFR (Non-African Ame >60 (>=60); Glucose 82 mg/dL (74-106); Sodium 140 mmol/L (136-145)
== END 2024-02-16 16:07 | disposition home or self-care (01) ==
LOC: LAB 16:10
PROVIDERS: PCP Nurse Practitioner; Visit Provider Nurse Practitioner
DX: D50.8 Other iron deficiency anemias (principal); K95.89 Other complications of other bariatric procedure; I50.22 Chronic systolic (congestive) heart failure
CPT/HCPCS: 36415; 80048; 82728; 83540; 85025

== ENCOUNTER 2024-02-18 14:48 | Outpatient (OUT) | payer BC, SELFPAY ==
--- NOTE | 2024-02-18 15:10 | XR_ITS ---
The [address] [address] Patient Name: SHABNAM BURGESS MRN: [id number] date: 1955 Sex: M Assigned Patient Location: LAB Current Patient Location: LAB Accession/Order Number: [id number] Exam Date: 02/18/2024 15:25 Report Date: 02/19/2024 09:35 At the request of: CARMEN EL Procedure: XR cervical spine 2-3V EXAMINATION: XR cervical spine 2-3V HISTORY: Degenerative disc disease, cervical M50.30 ; weakness COMPARISON: No relevant comparison available. FINDINGS: BONES: Prominent kyphosis of the visible upper thoracic spine. Normal height, alignment, curvature of the cervical spine. Multilevel mild degenerative facet arthropathy. DISC SPACES: No significant disc height narrowing, subluxation, or endplate abnormality. PARASPINOUS: Negative. No paraspinous abnormality is seen. OTHER: Negative. XR/XR cervical spine 2-3V IMPRESSION: 1. No acute or significant degenerative changes of the cervical spine. Mild degenerative facet arthropathy. 2. Thoracic kyphosis. Electronically authenticated by: CASSIDY DILLON Date: 02/19/2024 09:35
--- NOTE | 2024-02-18 15:11 | XR_ITS ---
The [address] [address] Patient Name: SHABNAM BURGESS MRN: [id number] date: 1955 Sex: M Assigned Patient Location: LAB Current Patient Location: LAB Accession/Order Number: [id number] Exam Date: 02/18/2024 15:25 Report Date: 02/19/2024 10:49 At the request of: CARMEN EL Procedure: XR lumbar spine 2-3V EXAMINATION: XR lumbar spine 2-3V HISTORY: Degenerative disc disease, lumbar M51.36 COMPARISON: No relevant comparison available. FINDINGS: BONES: Mild left convex curvature of lumbar spine. No fracture or spondylolisthesis. Moderate degenerative facet arthropathy L3-4 through L5-S1. DISC SPACES: Mild narrowing L2-3. PARASPINOUS: Negative. No paraspinous abnormality is seen. OTHER: Negative. XR/XR lumbar spine 2-3V IMPRESSION: 1. Mild-moderate degenerative changes of lumbar spine. 2. No appreciable acute abnormality. Electronically authenticated by: CASSIDY DILLON Date: 02/19/2024 10:49
[2024-02-18 15:19] LABS: Bilirubin Urine NEGATIVE (NEGATIVE); Blood Urine TRACE-I (NEGATIVE); Clarity Urine CLEAR (CLEAR); Color Urine YELLOW (YELLOW); Glucose Urine UA NEGATIVE (NEGATIVE); Ketones Urine NEGATIVE (NEGATIVE); Leukocyte Esterase Urine SMALL (NEGATIVE); Nitrite Urine POSITIVE (NEGATIVE); Protein Urine NEGATIVE (NEG/TRACE); Specific Gravity Urine 1.025 (1.005-1.025); Urobilinogen Urine 0.2 EU/dL (0.2-1.0)
[2024-02-18 15:20] LABS: Urine Microscopic Indicated YES
[2024-02-18 15:23] LABS: Erythrocyte Sedimentation Rate 4 mm/hr (<=20)
[2024-02-18 15:25] LABS: Bacteria Urine SMALL #/HPF (NONE SEEN); Mucus Urine TRACE (NONE SEEN); RBC Urine 0-2 #/HPF (0-2)
[2024-02-18 15:26] LABS: Cast Seen? NONE SEEN #/LPF (NONE SEEN); Crystals Seen? None Seen #/HPF (None Seen); Squamous Epithelial Cell Urine FEW #/LPF (NONE/RARE); Urine Culture Indicated YES
[2024-02-18 15:43] LABS: Alanine Aminotransferase 100 U/L (16-63); Albumin Globulin Ratio 1.3; Albumin Level 3.9 g/dL (3.4-5.0); Alkaline Phosphatase 147 U/L (46-116); Aspartate Amino Transferase 45 U/L (15-37); Bilirubin Direct 0.3 mg/dL (0.0-0.2); Bilirubin Total 0.9 mg/dL (0.2-1.0); C Reactive Protein <0.50 mg/dL (<=0.50); Total Protein 6.9 g/dL (6.4-8.2)
== END 2024-02-18 14:49 | disposition home or self-care (01) ==
LOC: LAB 14:50
PROVIDERS: PCP Nurse Practitioner; Visit Provider Nurse Practitioner
DX: R53.1 Weakness (principal); R20.2 Paresthesia of skin; M50.30 Other cervical disc degeneration, unspecified cervical region; M51.36 Other intervertebral disc degeneration, lumbar region
CPT/HCPCS: 36415; 72040; 72100; 80076; 81001; 82607; 85652; 86140; 87086

== ENCOUNTER 2024-03-03 16:11 | Outpatient (OUT) | payer BC, SELFPAY ==
--- OUTSIDE RECORDS SUMMARY | 2024-03-03 16:24 | XMS_ITS | CCD ---
Author Organization [facility] Care Team Providers Care Instructor Modeling Name Role Phone PHYSICIAN, DEFAULT Unavailable Unavailable PHYSICIAN, DEFAULT Unavailable Unavailable AICHQUIANA PARK J. Referring Unavailable AICHHOLMichelle, PARK J. Primary Care Unavailable AICHQUIANA, PARK J Primary Care Physician ANAHI ., DR NGUYỄN Consulting Unavailable BRIGGS ., DR NGUYỄN Admitting Unavailable BRIGGS ., DR NGUYỄN Attending Unavailable AICHHOLZ, INSURANCE OFFICE SUPERVISOR PARK Primary Care Unavailable MISC, DR AYERS Consulting Unavailable MISC, DR AYERS Admitting Unavailable MISC, DR AYERS Attending Unavailable AICHHOLZ, INSURANCE OFFICE SUPERVISOR PARK Primary Care Unavailable AICHHOLZ, INSURANCE OFFICE SUPERVISOR PARK Consulting Unavailable AICHHOLZ, INSURANCE OFFICE SUPERVISOR PARK Primary Care Unavailable BRIGGS ., DR NGUYỄN Admitting Unavailable BRIGGS ., DR NGUYỄN Attending Unavailable ZIEBER, DR CASSIDY Ross Consulting Unavailable ELI DALAL Attending Unavailable ELI DALAL Admitting Unavailable AICHHOLZ, INSURANCE OFFICE SUPERVISOR PARK Primary Care Unavailable JENNIFER DRAKE Consulting Unavailable DEANNE OTOOLE Consulting UnavailISACC Sidhu Admitting Unavailable ISACC BEJARANO Attending Unavailable AICHHOLZ, INSURANCE OFFICE SUPERVISOR PARK Primary Care Unavailable ISACC BEJARANO Consulting Unavailable AICHHOLZ, INSURANCE OFFICE SUPERVISOR PARK Primary Care Unavailable NILL ., DR MCALLISTER Admitting Unavailable NILL ., DR MCALLISTER Attending Unavailable NILL ., DR MCALLISTER Consulting Unavailable AICHHOLZ, INSURANCE OFFICE SUPERVISOR PARK Primary Care Unavailable NILL ., DR MCALLISTER Admitting Unavailable NILL ., DR MCALLISTER Attending Unavailable GRACE LEO Consulting Unavailable JUAN ORO Consulting Unavailable AICHHOLZ, INSURANCE OFFICE SUPERVISOR PARK Consulting Unavailable AICHHOLZ, INSURANCE OFFICE SUPERVISOR PARK Primary Care Unavailable AICHHOLZ, INSURANCE OFFICE SUPERVISOR PARK Admitting Unavailable AICHHOLZ, INSURANCE OFFICE SUPERVISOR PARK Attending Unavailable AICHHOLZ, LILIANA MARCOSA Consulting Unavailable PARESH, INSURANCE OFFICE SUPERVISOR PARK Admitting Unavailable PARESH, LILIANA MARCOSA Attending Unavailable PARESH, LILIANA MORALES Primary Care Unavailable Puneet BRIGGS Attending Unavailable ANAHI, Puneet Ross Attending Unavailable ANAHI, Puneet Ross Attending Unavailable ANAHI, Puneet Ross Attending Unavailable ANAHI, Puneet Ross Attending Unavailable ANAHI, Puneet Ross Attending Unavailable Kenny Hartley MD Primary Care Provider PARK YODER Attending Unavailable PARESH, PARK Attending Unavailable Medications Current Medications Medication Drug Class(es) Dates [...] procedure, # 2 tab(s), Refills(s) 0, Pharmacy: 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 This is called the Chappell score and the total score can range from 6?10, indicating how likely it is that the cancer will spread (metastasize) to other parts of the body. The higher the score, the greater the likelihood that the cancer will spread. ? Chappell 6 or lower: This indicates that the cancer cells look similar to normal prostate cells (well differentiated). ? Marixa 7: This indicates that the cancer cells look somewhat similar to normal prostate cells (moderately differentiated). ? Chappell 8, 9, or 10: This indicates that [...] external be (more content not included)... Normal [facility] Reminderson 04-13-2023 Reminders - From: Shala Soares To: JAYASHREE Briggs; Sent: 04/13/2023 16:27:00 EDT Show up: 09/13/2023 15:26:00 EST Subject: PSA Reminder Message Please Remember to:_get PSA (at [facility]) prior to next appt. Normal [facility] Urology Office/Clinic Noteon 04-13-2023 Urology Office/Clinic [...] URL [facility] [address], [place] [address] [phone] Additional Instructions: 6 mos w/ PSA and [...] of prostat (more content not included)... Normal [facility] Comment on above: Result Comment: Electronically Signed By : Puneet BRIGGS MD\.br\Date and Time Signed: 04/13/23 16:26 EDT\.br\Electronically Co-Signed By: Shala Soares\.yonathan\Date and Time Co-Signed: 04/13/23 16:25 EDT Lab Reportson 11-30-2022 Lab Reports [id number]#[id number]:127 Normal [facility] UroVysion Fish and Urine Cyt o ([facility])on 11-13-2022 UVFISH & UC Diagnosis Info Invalid Interpretation Code [facility] Comment on above: Result Comment: A:Urine,Urine:Voided [...] 170 Hematuria: Gross Description Site ID:A color Hope fixative Alcohol Received 80 mls of clear orange fluid with the patient's name and, Urine on the vial. Electronically signed by : on: 11/13/2022 08:34:30 Performed By: #### 1 [id number] ####[facility] [id number] [place] [address] Consent for Procedure/Surger yon 11-05-2022 Consent for Procedure/Surge ry [id number]#[id number]:127 Normal [facility] UroVysion Fish and Urine Cyt o ([facility])on 11-04-2022 UVUC Method of Extraction Bladder Urine Normal [facility] Comment on above: Performed By: #### [id number] ####[facility] [id number] [place] [address] [facility] Number of Jars 1 Invalid Interpretation Code [facility] Comment on above: Performed By: #### [id number] ####[facility] [id number] [place] [address] [facility] Specimen Urine Normal [facility] Comment on above: Performed By: #### [id number] ####[facility] [address] [place] [address] [facility] Type of Service Global Normal [facility] Comment on above: Performed By: #### [id number] ####[facility] [id number] [place] [address] Urology Office/Clinic Noteon 11-04-2022 Urology Office/Clinic Note [...] blood and clots on 09/12/22. Went to [facility] ER, they did urine cx. Was [...] [facility] [address], [place] [address]- Additional Instructions: f/u 4 mos Patient Education [...] of lower (more content not included)... Normal [facility] Comment on above: Result Comment: Electronically Signed By : Puneet BRIGGS MD R\.br\Date and Time Signed: 11/04/22 15:08 EST\.br\Electronically Co-Signed By: Soha Li P\.br\Date and Time Co-Signed: 11/04/22 15:05 EST Patient [...] Follow these instructions at home: ? Take ferl-cgw-cfeismp and prescription medicines only as told by [...] You d (more content not included)... Normal [facility] Pre-Certification Formon Pre-Certificati on Form [id number]:127 Normal [facility] ER URINE PROFILEon 2 Bilirubin Ql (U) Negative Normal NEGATIVE [facility] Comment on above: Performed By: #### SKYLAR CAMARENA #### [facility] [address] [place] [address] Dr. Santhosh Francois Clarity (U) CLEAR Normal CLEAR [facility] Comment on above: Performed By: #### NICOL, ERUR #### [facility] [address] [place] [address] Dr. Santhosh Francois Color (U) LT. YELLOW Normal YELLOW [facility] Comment on above: Performed By: #### NICOL, ERUR #### [facility] [address] [place] [address] Dr. Santhosh Francois ERUAHD A micrscopic examina tion will be performed if indicated. Normal [facility] Comment on above: Performed By: #### NICOL, ERUR #### [facility] [address] [place] [address] Dr. Santhosh Francois Glucose Ql (U) Negative Normal NEGATIVE [facility] Comment on above: Performed By: #### NICOL, ERUR #### [facility] [address] [place] [address] Dr. Santhosh Francois Hemoglobin Ql (U) LARGE Abnormal NEGATIVE [facility] Comment on above: Performed By: #### NICOL ERUR #### [facility] [address] [place] [address] Dr. Santhosh Francois Ketones Ql (U) Negative Normal NEGATIVE [facility] Comment on above: Performed By: #### NICOL ERUR #### [facility] [address] [place] [address] Dr. Santhosh Francois LEUKOCYTES Negative Normal NEGATIVE [facility] Comment on above: Performed By: #### NICOL ERUR #### [facility] [address] [place] [address] Dr. Santhosh Francois Nitrite Ql (U) Negative Normal NEGATIVE [facility] Comment on above: Performed By: #### NICOL ERUR #### [facility] [address] [place] [address] Dr. Santhosh Francois pH (U) 5.0 [pH] Normal 5-9 [facility] Comment on above: Performed By: #### NICOL ERUR #### [facility] [address] [place] [address] Dr. Santhosh Francois SPEC GRAVITY 1.010 Normal 1.005-<=1.02 5 [facility] Comment on above: Performed By: #### NICOL, ERUR #### [facility] [address] [place] [address] Dr. Santhosh Francois UA PROTEIN TRACE Normal NEGATIVE/ TRACE [facility] Comment on above: Performed By: #### NICOL, ERUR #### [facility] [address] [place] [address] Dr. Santhosh Francois UR MICRO IND INDICATED Normal [facility] Comment on above: Performed By: #### NICOL, ERUR #### [facility] [address] [place] [address] Dr. Santhosh Francois Urobilinogen Qn (U) 0.2 {Malini'U}/dL Normal 0.2 - 1.0 [facility] Comment on above: Performed By: #### NICOL ERUR #### [facility] [address] [place] [address] Dr. Santhosh Francois URINE MICROSCOPIC ONLYon BACTERIA NONE SEEN Normal NONE SEEN [facility] Comment on above: Performed By: #### CBC #### [facility] [address] [place] [address] Dr. Santhosh Francois Bacteria identified Cx Nom (U) NOT INDICATED Normal [facility] Comment on above: Performed By: #### CBC #### [facility] [address] [place] [address] Dr. Santhosh Francois CAST NONE SEEN Normal NONE SEEN [facility] Comment on above: Performed By: #### CBC #### [facility] [address] [place] [address] Dr. Santhosh Francois Crystals LM Nom (Urine sed) NONE SEEN Normal NONE SEEN [facility] Comment on above: Performed By: #### CBC #### [facility] [address] [place] [address] Dr. Santhosh Francois Epithelial cells LM Ql (Urine sed) RARE Normal NONE SEEN /RARE [facility] Comment on above: Performed By: #### CBC #### [facility] [address] [place] [address] Dr. Santhosh Francois MUCOUS NONE SEEN Normal NONE SEEN [facility] Comment on above: Performed By: #### CBC #### [facility] [address] [address] [address] Santhosh Francois RBC 10-20 Abnormal 0-2 [facility] Comment on above: Performed By: #### CBC #### [facility] [address] [address] [address] Santhosh Francois WBC NONE SEEN Normal NONE SEEN [facility] Comment on above: Performed By: #### CBC #### [facility] [address] [address] [address] Santhosh Francois Lab Reportson 05-20-2022 Lab Reports [id number]:127 Normal [facility] Ambulatory Visit Summaryon 0 05-19-2022 Ambulatory Visit Summary SHABNAM BURGESS :1955 Visit Date:05/19/2022 Ambulatory Visit Instructions Your Diagnosis Prostate cancer Chronic prostatitis BPH with urinary obstruction Kidney stones BMI 36.0-36.9,adult Other obstructive and reflux uropathy Tests Performed Urnls Dip Stick Auto w/o Microscopy POC 28899 Your Care Team Attending Physician - ANAHI [...] MCDONALD, Puneet Ross Where: [facility] [place] Normal [facility] Patient Educationon 05-19-20 Patient Education Infectious Disease Prostatitis Prostatitis is swelling of the prostate gland. The prostate helps to make semen. It is below a man's bladder, in front of the rectum. There are different types of prostatitis. Follow these instructions at home: ? Take tdzi-uwc-vdqrrcb and prescription medicines only as told by [...] Reviewed: 06/04/2017 Elsevier Patient Education ? 2020 [employer] Nutrition Calorie Counting for Weight Loss [...] not leave (more content not included)... Normal [facility] Urology Office/Clinic Noteon 05-19-2022 Urology Office/Clinic [...] ANAHI MCDONALD, DELANEY Conti In 6 months [facility] [place] [address] Business (1) Additional Instructions: w/PSA Patient Education Prostatitis, Nnzb-az-Ylmi Calorie Counting for Weight Loss Carey Willett [...] Wine, Daily, (more content not included)... Normal [facility] Comment on above: Result Comment: Electronically Signed By : Puneet BRIGGS MD\Date and Time Signed: 05/19/22 16:36 EDT\.br\Electronically Co-Signed By: Carey Gonzalez.yonathan\Date and Time Co-Signed: 05/19/22 16:34 EDT LIPID PROFILEon 05-16-2022 CHOL-HDL RATIO NORM SEE BELOW Normal [facility] Comment on above: Result Comment: 3.3 - 4.4 LOW RISK 4.4 - 7.1 AVERAGE RISK 7.1 - 11.0 MODERATE RISK >11.0 HIGH RISK Performed By: #### C BC #### [facility] [address] [address] [address] Santhosh Francois Cholesterol [Mass/Vol] 58 mg/dL Normal <=200 [facility] Comment on above: Performed By: #### CBC #### [facility] [address] [address] [address] Santhosh Francois Cholesterol in HDL [Mass/Vol] 38 mg/dL Critically low 40-60 [facility] Comment on above: Performed By: #### CBC #### [facility] [address] [address] [address] Santhosh Francois Cholesterol in LDL [Mass/Vol] 14.0 mg/dL Normal [facility] Comment on above: Performed By: #### CBC #### [facility] [address] [address] [address] Santhosh Francois Cholesterol.tot al/Cholesterol in HDL [Mass ratio] 1.5 {ratio} Normal [facility] Comment on above: Performed By: #### CBC #### [facility] [address] [address] [address] Santhosh Francois HDL NORMAL > or = 60 mg/dl - LO W CARDIOVASCULAR RISK <40 mg/dl - HIGH CARDIOVASCULAR RISK Normal [facility] Comment on above: Performed By: #### CBC #### [facility] [address] [address] [address] Santhosh Francois LDL CALC NORMAL SEE BELOW Normal [facility] Comment on above: Result Comment: <100 mg/dl OPTIMAL 100 - 129 mg/dl NEAR OR ABOVE OPTIMAL 130 - 159 mg/dl BORDERLINE HIGH 160 - 189 mg/dl HIGH >190 mg/dl VERY HIGH Performed By: #### C BC #### [facility] [address] [address] [address] Santhosh Francois Triglyceride [Mass/Vol] 30 mg/dL Normal <=150 [facility] Comment on above: Performed By: #### CBC #### [facility] [address] [place] [address] Dr. Santhosh Francois VLDL CALC 6.0 mg/dL Normal [facility] Comment on above: Performed By: #### CBC #### [facility] [address] [place] [address] Dr. Santhosh Francois PROF 14(COMP METB)on 022 Albumin [Mass/Vol] 3.6 g/dL Normal 3.4-5.0 [facility] Comment on above: Performed By: #### CBC #### [facility] [address] [place] [address] Dr. Santhosh Francois Albumin/Globuli n [Mass ratio] 1.1 {ratio} Normal [facility] Comment on above: Performed By: #### CBC #### [facility] [address] [place] [address] Dr. Santhosh Francois ALP [Catalytic activity/Vol] 145 U/L Critically high 46-116 [facility] Comment on above: Performed By: #### CBC #### [facility] [address] [place] [address] Dr. Santhosh Francois ALT [Catalytic activity/Vol] 102 U/L Critically high 16-63 [facility] Comment on above: Performed By: #### CBC #### [facility] [address] [place] [address] Dr. Santhosh Francois Anion gap [Moles/Vol] 12.7 mmol/L Normal [facility] Comment on above: Performed By: #### CBC #### [facility] [address] [place] [address] Dr. Santhosh Francois AST [Catalytic activity/Vol] 68 U/L Critically high 15-37 [facility] Comment on above: Performed By: #### CBC #### [facility] [address] [place] [address] Dr. Santhosh Francois Bilirubin [Mass/Vol] 1.0 mg/dL Normal 0.2-1.0 [facility] [place] [facility] Comment on above: Performed By: #### CBC #### [facility] [address] [address] [address] Santhosh Francois Calcium [Mass/Vol] 8.0 mg/dL Critically low 8.5-10.1 [facility] Comment on above: Performed By: #### CBC #### [facility] [address] [address] [address] Santhosh Francois Chloride [Moles/Vol] 111 mmol/L Critically high 98-107 [facility] Comment on above: Performed By: #### CBC #### [facility] [address] [address] [address] Santhosh Francois CO2 [Moles/Vol] 20.6 mmol/L Critically low 21.0-32.0 [facility] Comment on above: Performed By: #### CBC #### [facility] [address] [address] [address] Santhosh Francois Creatinine [Mass/Vol] 0.96 mg/dL Normal 0.70-1.30 [facility] Comment on above: Performed By: #### CBC #### [facility] [address] [address] [address] Santhosh Francois EGFR-AF MALAYSIAN >60 Normal >=60 [facility] Comment on above: Performed By: #### CBC #### [facility] [address] [address] [address] Santhosh Francois EGFR-NON AF MALAYSIAN >60 Normal >=60 [facility] Comment on above: Performed By: #### CBC #### [facility] [address] [address] [address] Santhosh Francois Globulin (S) [Mass/Vol] 3.2 g/dL Normal [facility] Comment on above: Performed By: #### CBC #### [facility] [address] [address] [address] Santhosh Francois Glucose [Mass/Vol] 88 mg/dL Normal 74-106 [facility] Comment on above: Performed By: #### CBC #### [facility] [address] [address] [address] Santhosh Francois Potassium [Moles/Vol] 4.3 mmol/L Normal 3.5-5.1 [facility] Comment on above: Performed By: #### CBC #### [facility] [address] [place] [address] Dr. Santhosh Francois Protein [Mass/Vol] 6.8 g/dL Normal 6.4-8.2 [facility] Comment on above: Performed By: #### CBC #### [facility] [address] [address] [address] Santhosh Francois Sodium [Moles/Vol] 140 mmol/L Normal 136-145 [facility] Comment on above: Performed By: #### CBC #### [facility] [address] [place] [address] Dr. Santhosh Francois Urea nitrogen [Mass/Vol] 26.0 mg/dL Critically high 7.0-18.0 [facility] Comment on above: Performed By: #### CBC #### [facility] [address] [place] [address] Dr. Santhosh Francois Urea nitrogen/Creati nine [Mass ratio] 27.1 mg/mg Normal [facility] Comment on above: Performed By: #### CBC #### [facility] [address] [place] [address] Dr. Santhosh Francois ED Note-Physicianon 05-07-20 ED Note-Physician [id number]:127 Normal [facility] RAD - CT Reporton 05-06-2022 RAD - CT Report [id number]:127 Normal [facility] CBC AUTO DIFFon 04-30-2022 BASO # 0.0 103/ul Normal 0.0-0.1 [facility] Comment on above: Performed By: #### CBC #### [facility] [address] [place] [address] Dr. Santhosh Francois Basophils/100 WBC (Bld) 0.5 % Normal 0.2-2.0 [facility] Comment on above: Performed By: #### CBC #### [facility] [address] [address] [address] Santhosh Francois EO # 0.2 103/ul Normal 0.0-0.7 [facility] Comment on above: Performed By: #### CBC #### [facility] [address] [place] [address] Dr. Santhosh Francois Eosinophils/100 WBC (Bld) 2.9 % Normal 0.9-7.0 [facility] Comment on above: Performed By: #### CBC #### [facility] [address] [place] [address] Dr. Santhosh Francois Erythrocyte distribution width (RBC) [Ratio] 14.9 % Normal 11.0-15.0 [facility] Comment on above: Performed By: #### CBC #### [facility] [address] [place] [address] Dr. Santhosh Francois Hematocrit (Bld) [Volume fraction] 39.1 % Critically low 42.0-54.0 [facility] Comment on above: Performed By: #### CBC #### [facility] [address] [place] [address] Dr. Santhosh Francois Hemoglobin (Bld) [Mass/Vol] 12.2 g/dL Critically low 14.0-18.0 [facility] Comment on above: Performed By: #### CBC #### [facility] [address] [place] [address] Dr. Santhosh Francois IG # 0.01 10e3/ul Normal 0.00-0.03 [facility] Comment on above: Performed By: #### CBC #### [facility] [address] [place], [place] [address] Dr. Santhosh Francois IG % 0.2 % Normal 0.0-0.5 [facility] Comment on above: Performed By: #### CBC #### [facility] [address] [place] [address] Dr. Santhosh Francois LYMPH # 2.0 103/ul Normal 1.2-3.8 [facility] Comment on above: Performed By: #### CBC #### [facility] [address] [place] [address] Dr. Santhosh Francois Lymphocytes/100 WBC (Bld) 32.6 % Normal 20.5-60.0 [facility] Comment on above: Performed By: #### CBC #### [facility] [address] [address] [address] Santhosh Francois MANUAL DIFF REQ NO Normal [facility] Comment on above: Performed By: #### CBC #### [facility] [address] [place] [address] Dr. Santhosh Francois MCH (RBC) [Entitic mass] 29.9 pg Normal 25.9-34.0 [facility] Comment on above: Performed By: #### CBC #### [facility] [address] [place] [address] Dr. Santhosh Francois MCHC (RBC) [Mass/Vol] 31.2 g/dL Normal 29.9-35.2 [facility] Comment on above: Performed By: #### CBC #### [facility] [address] [place] [address] Dr. Santhosh Francois MCV (RBC) [Entitic vol] 95.8 fL Critically high 80.0-94.0 [facility] Comment on above: Performed By: #### CBC #### [facility] [address] [place] [address] Dr. Santhosh Francois MONO # 0.5 103/ul Normal 0.3-0.8 [facility] Comment on above: Performed By: #### CBC #### [facility] [address] [place] [address] Dr. Santhosh Francois Monocytes/100 WBC (Bld) 7.9 % Normal 1.7-12.0 [facility] Comment on above: Performed By: #### CBC #### [facility] [address] [place] [address] Dr. Santhosh Francois NEUT # 3.5 103/ul Normal 1.4-6.5 [facility] Comment on above: Performed By: #### CBC #### [facility] [address] [place] [address] Dr. Santhosh Francois Neutrophils/100 WBC (Bld) 55.9 % Normal 43.0-75.0 [facility] Comment on above: Performed By: #### CBC #### [facility] [address] [address] [address] Santhosh Francois Platelet mean volume (Bld) [Entitic vol] 10.6 fL Normal 9.5-13.5 [facility] Comment on above: Performed By: #### CBC #### [facility] [address] [place] [address] Dr. Santhosh Francois PLT 125 103/ul Critically low 150-450 [facility] Comment on above: Performed By: #### CBC #### [facility] [address] [place] [address] Dr. Santhosh Francois RBC 4.08 106/ul Critically low 4.70-6.10 [facility] Comment on above: Performed By: #### CBC #### [facility] [address] [place] [address] Dr. Santhosh Francois WBC 6.2 103/ul Normal 4.0-11.0 [facility] Comment on above: Performed By: #### CBC #### [facility] [address] [place] [address] ABD/PELVIS WO CONon [...] CASSIDY DILLON Date: 2022-04-30 18:05 Normal [facility] CULTURE URINEon 04-30-2022 CULTURE URINE Culture Observations : NO GROWTH. Normal [facility] Comment on above: Performed By: #### URCX #### [facility] [address] [place] [address] Dr. Santhosh Francois ER URINE PROFILEon 2 Bilirubin Ql (U) Unable to perform testing due to color interference. Abnormal NEGATIVE [facility] Comment on above: Performed By: #### MICHELE CHENGRO #### [facility] [address] [place] [address] Dr. Santhosh Francois Clarity (U) TURBID Abnormal CLEAR [facility] Comment on above: Performed By: #### MICHELE CHENGRO #### [facility] [address] [place] [address] Dr. Santhosh Francois Color (U) RED Abnormal YELLOW [facility] Comment on above: Performed By: #### SKYLAR UMCARLEERO #### [facility] [address] [place] [address] Dr. Santhosh ESPINALD A micrscopic examina tion will be performed if indicated. Normal [facility] Comment on above: Performed By: #### SKYLAR UMCARLEERO #### [facility] [address] [place] [address] Dr. Santhosh Francois Glucose Ql (U) Unable to perform te sting due to color interference. Abnormal NEGATIVE [facility] Comment on above: Performed By: #### NICOL CHENG #### [facility] [address] [place] [address] Dr. Santhosh Francois Hemoglobin Ql (U) Unable to perform testing due to color interference. Abnormal NEGATIVE [facility] Comment on above: Performed By: #### NICOL CHENG #### [facility] [address] [place] [address] Dr. Santhosh Francois Ketones Ql (U) Unable to perform te sting due to color interference. Abnormal NEGATIVE [facility] Comment on above: Performed By: #### NICOL CHENG #### [facility] [address] [place] [address] Dr. Santhosh Francois LEUKOCYTES Unable to perform te sting due to color interference. Abnormal NEGATIVE [facility] Comment on above: Performed By: #### NICOL CHENG #### [facility] [address] [place] [address] Dr. Santhosh Francois Nitrite Ql (U) Unable to perform te sting due to color interference. Abnormal NEGATIVE [facility] Comment on above: Performed By: #### NICOL CHENG #### [facility] [address] [place] [address] Dr. Santhosh Francois pH (U) 6.0 [pH] Normal 5-9 [facility] Comment on above: Performed By: #### NICOL CHENG #### [facility] [address] [place] [address] Dr. Santhosh Francois SPEC GRAVITY 1.025 Normal 1.005-<=1.02 5 [facility] Comment on above: Performed By: #### NICOL CHENG #### [facility] [address] [place] [address] Dr. Santhosh Francois UA PROTEIN Unable to perform te sting due to color interference. Normal NEGATIVE/ TRACE [facility] Comment on above: Performed By: #### NICOL CHENG #### [facility] [address] [place] [address] Dr. Santhosh Francois UR MICRO IND INDICATED Normal [facility] Comment on above: Performed By: #### NICOL CHENG #### [facility] [address] [address] [address] Santhosh Francois UROBILINOGEN Unable to perform te sting due to color interference. Normal 0.2 - 1.0 [facility] Comment on above: Performed By: #### NICOL CHENG #### [facility] [address] [address] [address] Santhosh Francois PROF CHEM 8 (BAS METB)on Anion gap [Moles/Vol] 12.6 mmol/L Normal [facility] Comment on above: Performed By: #### BMP #### [facility] [address] [place] [address] Dr. Santhosh Francois Calcium [Mass/Vol] 7.7 mg/dL Critically low 8.5-10.1 [facility] Comment on above: Performed By: #### BMP #### [facility] [address] [place] [address] Dr. Santhosh Francois Chloride [Moles/Vol] 114 mmol/L Critically high 98-107 [facility] Comment on above: Performed By: #### BMP #### [facility] [address] [place] [address] Dr. Santhosh Francois CO2 [Moles/Vol] 21.1 mmol/L Normal 21.0-32.0 [facility] Comment on above: Performed By: #### BMP #### [facility] [address] [place] [address] Dr. Santhosh Francois Creatinine [Mass/Vol] 1.12 mg/dL Normal 0.70-1.30 [facility] Comment on above: Performed By: #### BMP #### [facility] [address] [place] [address] Dr. Santhosh Francois EGFR-AF MALAYSIAN >60 Normal >=60 [facility] Comment on above: Performed By: #### BMP #### [facility] [address] [place] [address] Dr. Santhosh Francois EGFR-NON AF MALAYSIAN >60 Normal >=60 [facility] Comment on above: Performed By: #### BMP #### [facility] [address] [place] [address] Dr. Santhosh Francois Glucose [Mass/Vol] 90 mg/dL Normal 74-106 [facility] Comment on above: Performed By: #### BMP #### [facility] [address] [address] [address] Santhosh Francois Potassium [Moles/Vol] 3.7 mmol/L Normal 3.5-5.1 [facility] Comment on above: Performed By: #### BMP #### [facility] [address] [place] [address] Dr. Santhosh Francois Sodium [Moles/Vol] 144 mmol/L Normal 136-145 [facility] Comment on above: Performed By: #### BMP #### [facility] [address] [place] [address] Dr. Santhosh Francois Urea nitrogen [Mass/Vol] 23.0 mg/dL Critically high 7.0-18.0 [facility] Comment on above: Performed By: #### BMP #### [facility] [address] [place] [address] Dr. Santhosh Francois Urea nitrogen/Creati nine [Mass ratio] 20.5 mg/mg Normal [facility] Comment on above: Performed By: #### BMP #### [facility] [address] [place] [address] Dr. Santhosh Francois URINE MICROSCOPIC ONLYon BACTERIA NONE SEEN Normal NONE SEEN [facility] Comment on above: Performed By: #### ERUR UMICRO #### [facility] [address] [place] [address] Dr. Santhosh Francois Bacteria identified Cx Nom (U) NOT INDICATED Normal [facility] Comment on above: Performed By: #### ERUR, UMICRO #### [facility] [address] [place] [address] Dr. Santhosh Francois CAST NONE SEEN Normal NONE SEEN [facility] Comment on above: Performed By: #### ERUR UMICRO #### [facility] [address] [place] [address] Dr. Santhosh Francois Crystals LM Nom (Urine sed) NONE SEEN Normal NONE SEEN [facility] Comment on above: Performed By: #### DENTON CHENGICRO #### [facility] [address] [place] [address] Dr. Santhosh Francois Epithelial cells LM Ql (Urine sed) NONE SEEN Normal NONE SEEN /RARE [facility] Comment on above: Performed By: #### MICHELE CHENGRO #### [facility] [address] [place] [address] Dr. Santhosh Francois MUCOUS NONE SEEN Normal NONE SEEN [facility] Comment on above: Performed By: #### MICHELE CHENGRO #### [facility] [address] [place] [address] Dr. Santhosh Francois RBC (U) [#/Vol] /uL Abnormal 0-2 [facility] Comment on above: Performed By: #### MICHELE CHENGRO #### [facility] [address] [place] [address] Dr. Santhosh Francois WBC 10-20 Abnormal NONE SEEN [facility] Comment on above: Performed By: #### MICHELE CHENGRO #### [facility] [address] [place] [address] Dr. Santhosh Francois CBC AUTO DIFFon 03-07-2022 BASO # 0.1 103/ul Normal 0.0-0.1 [facility] Comment on above: Performed By: #### CBC #### [facility] [address] [place] [address] Dr. Santhosh Francois Basophils/100 WBC (Bld) 0.8 % Normal 0.2-2.0 [facility] Comment on above: Performed By: #### CBC #### [facility] [address] [place] [address] Dr. Santhosh Francois EO # 0.1 103/ul Normal 0.0-0.7 [facility] Comment on above: Performed By: #### CBC #### [facility] [address] [place] [address] Dr. Santhosh Francois Eosinophils/100 WBC (Bld) 1.9 % Normal 0.9-7.0 [facility] Comment on above: Performed By: #### CBC #### [facility] [address] [place] [address] Dr. Santhosh Francois Erythrocyte distribution width (RBC) [Ratio] 16.4 % Critically high 11.0-15.0 [facility] Comment on above: Performed By: #### CBC #### [facility] [address] [place] [address] Dr. Santhosh Francois Hematocrit (Bld) [Volume fraction] 43.0 % Normal 42.0-54.0 [facility] Comment on above: Performed By: #### CBC #### [facility] [address] [place] [address] Dr. Santhosh Francois Hemoglobin (Bld) [Mass/Vol] 13.4 g/dL Critically low 14.0-18.0 [facility] Comment on above: Performed By: #### CBC #### [facility] [address] [place] [address] Dr. Santhosh Francois IG # 0.02 10e3/ul Normal 0.00-0.03 [facility] Comment on above: Performed By: #### CBC #### [facility] [address] [place] [address] Dr. Santhosh Francois IG % 0.3 % Normal 0.0-0.5 [facility] Comment on above: Performed By: #### CBC #### [facility] [address] [place] [address] Dr. Santhosh Francois LYMPH # 1.8 103/ul Normal 1.2-3.8 [facility] Comment on above: Performed By: #### CBC #### [facility] [address] [place] [address] Dr. Santhosh Francois Lymphocytes/100 WBC (Bld) 29.2 % Normal 20.5-60.0 [facility] Comment on above: Performed By: #### CBC #### [facility] [address] [place] [address] Dr. Santhosh Francois MANUAL DIFF REQ NO Normal [facility] Comment on above: Performed By: #### CBC #### [facility] [address] [place] [address] Dr. Santhosh Francois MCH (RBC) [Entitic mass] 30.5 pg Normal 25.9-34.0 [facility] Comment on above: Performed By: #### CBC #### [facility] [address] [place] [address] Dr. Santhosh Francois MCHC (RBC) [Mass/Vol] 31.2 g/dL Normal 29.9-35.2 [facility] Comment on above: Performed By: #### CBC #### [facility] [address] [place] [address] Dr. Santhosh Francois MCV (RBC) [Entitic vol] 97.9 fL Critically high 80.0-94.0 [facility] Comment on above: Performed By: #### CBC #### [facility] [address] [place] [address] Dr. Santhosh Francois MONO # 0.4 103/ul Normal 0.3-0.8 [facility] Comment on above: Performed By: #### CBC #### [facility] [address] [place] [address] Dr. Santhosh Francois Monocytes/100 WBC (Bld) 6.3 % Normal 1.7-12.0 [facility] Comment on above: Performed By: #### CBC #### [facility] [address] [place] [address] Dr. Santhosh Francois NEUT # 3.8 103/ul Normal 1.4-6.5 [facility] Comment on above: Performed By: #### CBC #### [facility] [address] [place] [address] Dr. Santhosh Francois Neutrophils/100 WBC (Bld) 61.5 % Normal 43.0-75.0 [facility] Comment on above: Performed By: #### CBC #### [facility] [address] [place] [address] Dr. Santhosh Francois Platelet mean volume (Bld) [Entitic vol] 10.5 fL Normal 9.5-13.5 [facility] Comment on above: Performed By: #### CBC #### [facility] [address] [address] [address] Santhosh Francois PLT 148 103/ul Critically low 150-450 [facility] Comment on above: Performed By: #### CBC #### [facility] [address] [place] [address] Dr. Santhosh Francois RBC 4.39 106/ul Critically low 4.70-6.10 [facility] Comment on above: Performed By: #### CBC #### [facility] [address] [place] [address] Dr. Santhosh Francois WBC 6.2 103/ul Normal 4.0-11.0 [facility] Comment on above: Performed By: #### CBC #### [facility] [address] [place] [address] Dr. Santhosh Francois IRONon 03-07-2022 Iron [Mass/Vol] 125.0 ug/dL Normal 65.0-175.0 [facility] Comment on above: Performed By: #### IRON #### [facility] [address] [place] [address] Dr. Santhosh Francois CBC AUTO DIFFon 12-03-2021 BASO # 0.0 103/ul Normal 0.0-0.1 [facility] Comment on above: Performed By: #### CBC #### [facility] [address] [place] [address] Dr. Santhosh Francois Basophils/100 WBC (Bld) 0.7 % Normal 0.2-2.0 [facility] Comment on above: Performed By: #### CBC #### [facility] [address] [place] [address] Dr. Santhosh Francois EO # 0.2 103/ul Normal 0.0-0.7 [facility] Comment on above: Performed By: #### CBC #### [facility] [address] [place] [address] Dr. Santhosh Francois Eosinophils/100 WBC (Bld) 3.1 % Normal 0.9-7.0 [facility] Comment on above: Performed By: #### CBC #### [facility] [address] [address] [address] Santhosh Francois Hematocrit (Bld) [Volume fraction] 40.4 % Critically low 42.0-54.0 [facility] Comment on above: Performed By: #### CBC #### [facility] [address] [place] [address] Dr. Santhosh Francois Hemoglobin (Bld) [Mass/Vol] 11.5 g/dL Critically low 14.0-18.0 [facility] Comment on above: Performed By: #### CBC #### [facility] [address] [place] [address] Dr. Santhosh Francois IG # 0.01 10e3/ul Normal 0.00-0.03 [facility] Comment on above: Performed By: #### CBC #### [facility] [address] [place] [address] Dr. Santhosh Francois IG % 0.2 % Normal 0.0-0.5 [facility] Comment on above: Performed By: #### CBC #### [facility] [address] [place] [address] Dr. Santhosh Francois LYMPH # 2.0 103/ul Normal 1.2-3.8 [facility] Comment on above: Performed By: #### CBC #### [facility] [address] [place] [address] Dr. Santhosh Francois Lymphocytes/100 WBC (Bld) 33.9 % Normal 20.5-60.0 [facility] Comment on above: Performed By: #### CBC #### [facility] [address] [place] [address] Dr. Santhosh Francois MANUAL DIFF REQ NO Normal [facility] Comment on above: Performed By: #### CBC #### [facility] [address] [place] [address] Dr. Santhosh Francois MCH (RBC) [Entitic mass] 24.1 pg Critically low 25.9-34.0 [facility] Comment on above: Performed By: #### CBC #### [facility] [address] [place] [address] Dr. Santhosh Francois MCHC (RBC) [Mass/Vol] 28.5 g/dL Critically low 29.9-35.2 [facility] Comment on above: Performed By: #### CBC #### [facility] [address] [place] [address] Dr. Santhosh Francois MCV (RBC) [Entitic vol] 84.5 fL Normal 80.0-94.0 [facility] Comment on above: Performed By: #### CBC #### [facility] [address] [place] [address] Dr. Santhosh Francois MONO # 0.4 103/ul Normal 0.3-0.8 [facility] Comment on above: Performed By: #### CBC #### [facility] [address] [place] [address] Dr. Santhosh Francois Monocytes/100 WBC (Bld) 7.7 % Normal 1.7-12.0 [facility] Comment on above: Performed By: #### CBC #### [facility] [address] [place] [address] Dr. Santhosh Francois NEUT # 3.1 103/ul Normal 1.4-6.5 [facility] Comment on above: Performed By: #### CBC #### [facility] [address] [place] [address] Dr. Santhosh Francois Neutrophils/100 WBC (Bld) 54.4 % Normal 43.0-75.0 [facility] Comment on above: Performed By: #### CBC #### [facility] [address] [place] [address] Dr. Santhosh Francois Platelet mean volume (Bld) [Entitic vol] 10.0 fL Normal 9.5-13.5 [facility] Comment on above: Performed By: #### CBC #### [facility] [address] [place] [address] Dr. Santhosh Francois PLT 191 103/ul Normal 150-450 [facility] Comment on above: Performed By: #### CBC #### [facility] [address] [place] [address] Dr. Santhosh Francois RBC 4.78 106/ul Normal 4.70-6.10 [facility] Comment on above: Performed By: #### CBC #### [facility] [address] [place], [place] [address] Dr. Santhosh Francois WBC 5.8 103/ul Normal 4.0-11.0 [facility] Comment on above: Performed By: #### CBC #### [facility] [address] [place], [place] [address] Dr. Santhosh Francois MR prostate wo/w conon 09-17 MR prostate wo/w con [facility] [place] [address] [place] [address] MRI Report Signed Patient: Shabnam Burgess MR#: [id number] : 1955 Acct:[id number] Age/Sex: 65 / M ADM Date: 09/16/21 Loc: Room: Type: [facility] Attending Dr: Puneet Briggs MD [...] AM COT by: Tomy Garza MD Diplomate, [place] [employer] Report Completed: Sep 17, 2021 10:46:46 AM COT This transmission is proprietary, privileged and confidential. It is intended to be communication only for the use of the addressee; access to this message by anyone else is unaut Transcribed By: 09/17/21 1348 Dictated By: KIKE STAFF 09/17/21 1046 Signed By: 09/17/21 1349 Normal [facility] Blood Urea Nitrogenon 2020 Urea nitrogen [Mass/Vol] 21 mg/dL Normal - [facility] Comment on above: Order Comment: STAT FOR MRI Performed By: #### C REAT, BUN #### [facility] [address] [place], [place] [id number] [facility] Creatinineon 09-03-2021 Creatinine [Mass/Vol] 1.01 mg/dL Normal 0.64-1.27 [facility] Comment on above: Order Comment: STAT FOR MRI Performed By: #### C REAT, BUN #### [address] Creatinine Clr Calc Pharmacy 90.06 [facility] Comment on above: Order Comment: STAT FOR MRI Result Comment: PERF ORMED BY: [place] [address] PATHOLOGIST DONOR SPECIALIST TONNY ZHOU M.D. Performed By: #### C REAT, BUN #### [address] Estimated GFR ( Teresita > 60 [facility] Comment on above: Order Comment: STAT FOR MRI Result Comment: GFR estimated reference range: According to KDOQI guidelines, <60 ml/min/1.73m2 is sufficient to diagnose a patient with chronic kidney disease. Performed By: #### C REAT, BUN #### [address] Estimated GFR (Non- Am > 60 [facility] Comment on above: Order Comment: STAT FOR MRI Performed By: #### C REAT, BUN #### [facility] [address] [place] [address] [place] Ironon 04-15-2019 Iron [Mass/Vol] 22 ug/dL Low 59-158 [facility] Comment on above: Performed By: #### CP #### [facility] [address] [place] [address] Tree Trimming Supervisor: Frank Mercado MD #### B12, FE #### [facility] [address] [place] [address] Tree Trimming Supervisor: Rainer Araujo MD Vitamin B12on 04-15-2019 Cobalamin (Vitamin B12) [Mass/Vol] 1062 pg/mL Normal 232-1245 [facility] Comment on above: Performed By: #### CP #### [facility] [address] [place] [address] Tree Trimming Supervisor: Frank Mercado MD #### B12, FE #### [address] [address] [employer] Trimming Supervisor: Rainer Araujo MD Comp Metabolic Profon 2018 Albumin [Mass/Vol] 4.2 g/dL Normal 3.5-5.2 [facility] Comment on above: Performed By: #### CP #### [facility] [address] [place] [address] ( Tree Trimming Supervisor: Frank Mercado MD #### B12, FE #### [address] [address] [employer] Trimming Supervisor: Rainer Araujo MD Albumin/Globuli n [Mass ratio] 1.6 {ratio} Normal 1.0-2.5 [facility] Comment on above: Performed By: #### CP #### [facility] [address] [place] [address] ( Tree Tr[employer] Supervisor: Frank Mercado MD #### B12, FE #### [address] [address] [employer] Trimming Supervisor: Rainre Araujo MD Alkaline Phos 120 U/L Normal 40-129 [facility] Comment on above: Performed By: #### CP #### [facility] [address] [place], [place] [id number] Tree Trimming Supervisor: Frank Mercado MD #### B12, FE #### [address] [address] [employer] Trimming Supervisor: Rainer Araujo MD Bilirubin Ql (U) 0.72 mg/dL Normal 0.3-1.2 [facility] Comment on above: Performed By: #### CP #### [facility] [address] [place], [place] [phone] Tree Trimming Supervisor: Frank Mercado MD #### B12, FE #### [facility] [address] [place] [address] Tree Trimming Supervisor: Rainer rAaujo MD Protein [Mass/Vol] 6.8 g/dL Normal 6.4-8.3 [facility] Comment on above: Performed By: #### CP #### [address] [place], [place] [address] Tree Trimming Supervisor: Frank Mercado MD #### B12, FE #### [address] [address] Tree Trimming Supervisor: Rainer Araujo MD (cont.) [facility] Comment on above: Result Comment: Average GFR for 60-69 ye ars old: 85 mL/min/1.73sq m Chronic Kidney Disease: <60 mL/min/1.73sq m Kidney failure: <15 mL/min/1.73sq m eGFR calculated using average adult body mass. Additional eGFR calculator available at: http://www.Flexcom/multiple_crcl_2011.htm Performed By: #### C P #### [address] [place], [place] [id number] Tree Trimming Supervisor: Frank Mercado MD #### B12, FE #### [facility] [address] [place] [address] Tree Trimming Supervisor: Rainer Araujo MD ALT [Catalytic activity/Vol] 29 U/L Normal 5-41 [facility] Comment on above: Performed By: #### CP #### [address] [place], [place] [address] Tree Trimming Supervisor: Frank Mercado MD #### B12, FE #### [facility] [address] [place] [address] Tree Trimming Supervisor: Rainer Araujo MD Anion gap [Moles/Vol] 10 mmol/L Normal [facility] Comment on above: Performed By: #### CP #### [facility] [address] [place], [place] [phone] Tree Trimming Supervisor: Frank Mercado MD #### B12, FE #### [place] [address] [place] [address] Tree Trimming Supervisor: Rainer Araujo MD AST [Catalytic activity/Vol] 26 U/L Normal <40 [facility] Comment on above: Performed By: #### CP #### [facility] [address] [place], [place] [phone] Tree Trimming Supervisor: Frank Mercado MD #### B12, FE #### [address] [address] [employer] Trimming Supervisor: Rainer Araujo MD BUN/CRE Ratio 24 High 9-20 [facility] Comment on above: Performed By: #### CP #### [address] [place], [place] [phone] Tree Trimming Supervisor: Frank Mercado MD #### B12, FE #### [address] [address] Tree Trimming Supervisor: Rainer Araujo MD Calcium [Mass/Vol] 8.2 mg/dL Low 8.6-10.4 [facility] Comment on above: Performed By: #### CP #### [facility] [address] [place] [address] Tree Trimming Supervisor: Frank Mercado MD #### B12, FE #### [address] [address] Tree Trimming Supervisor: Rainer Araujo MD Chloride [Moles/Vol] 115 mmol/L High 98-107 [facility] Comment on above: Performed By: #### CP #### [facility] [address] [place], [place] [phone] Tree Trimming Supervisor: Frank Mercado MD #### B12, FE #### [facility] [address] [place] [address] Tree Trimming Supervisor: Rainer Araujo MD CO2 [Moles/Vol] 17 mmol/L Low 20-31 [facility] Comment on above: Performed By: #### CP #### [facility] [address] [place] [address] [place] [address] Tree Trimming Supervisor: Frank Mercado MD #### B12, FE #### [address] [address] Tree Trimming Supervisor: Rainer Araujo MD Creatinine [Mass/Vol] 1.11 mg/dL Normal 0.70-1.20 [facility] Comment on above: Performed By: #### CP #### [address] [place] [address] Tree Trimming Supervisor: Frank Mercado MD #### B12, FE #### [address] [address] [employer] Trimming Supervisor: Rainer Araujo MD GFR, Amer >60 Normal >60 [facility] Comment on above: Performed By: #### CP #### [address] [place] [address] Tree Trimming Supervisor: Frank Mercado MD #### B12, FE #### [facility] [address] [place] [address] Tree Trimming Supervisor: Rainer Araujo MD GFR,non Amer >60 Normal >60 [facility] Comment on above: Performed By: #### CP #### [address] [place] [address] Tree Trimming Supervisor: Frank Mercado MD #### B12, FE #### [facility] [address] [place] [address] Tree Trimming Supervisor: Rainer Araujo MD Glucose [Mass/Vol] 103 mg/dL High 70-99 [facility] Comment on above: Performed By: #### CP #### [facility] [address] [place], [place] [address] Tree Trimming Supervisor: Frank Mercado MD #### B12, FE #### [address] [address] Tree Trimming Supervisor: Rainer Araujo MD Potassium [Moles/Vol] 4.1 mmol/L Normal 3.7-5.3 [facility] Comment on above: Performed By: #### CP #### [facility] [address] [place] [address] [place], [place] [address] Tree Trimming Supervisor: Frank Mercado MD #### B12, FE #### [address] [address] Tree Trimming Supervisor: Rainer Araujo MD Sodium [Moles/Vol] 142 mmol/L Normal 135-144 [facility] Comment on above: Performed By: #### CP #### [address] [place], [place] [address] Tree Trimming Supervisor: Frank Mercado MD #### B12, FE #### [address] [address] Tree Trimming Supervisor: Rainer Araujo MD Staging: Normal [facility] Comment on above: Result Comment: Stage 1: Some kidney dam age normal GFR Stage 2: Mild kidney damage GFR 60-89 Stage 3: Moderate kidney damage GFR 30-59 Stage 4: Severe kidney damage GFR 15-29 Stage 5: Severe kidney damage GFR <15 ESRD - chronic treatment by dialysis or transplant Performed By: #### C P #### [facility] [address] [place], [place] [address] Tree Trimming Supervisor: Frank Mercado MD #### B12, FE #### [address] [id number] Tree Trimming Supervisor: Rainer Araujo MD Urea nitrogen [Mass/Vol] 27 mg/dL High 8-23 [facility] Comment on above: Performed By: #### CP #### [facility] [address] [place] [address] Tree Trimming Supervisor: Frank Mercado MD #### B12, FE #### [facility] [address] [place], [place] [id number] Tree Trimming Supervisor: Rainer Araujo MD Vital Signs Date Time Vital Sign Value Performing Clinician Facility 11-04-2023 15:54-0500 Body height 177.8 cm Park Mikez PAYMENT PROCESSOR Work Phone: [facility] 11-04-2023 15:54-0500 Body mass index (BMI) [Ratio] 34.47 kg/m2 Park Aichnicolettez PAYMENT PROCESSOR Work Phone: [facility] 11-04-2023 15:54-0500 Body temperature 97.11 [degF] Park Aichnicolettez PAYMENT PROCESSOR Work Phone: [facility] 11-04-2023 15:54-0500 Body weight 108.95 kg Park Aichholz PAYMENT PROCESSOR Work Phone: [facility] 11-04-2023 15:54-0500 Diastolic blood pressure 78 mm[Hg] Park Aichholz PAYMENT PROCESSOR Work Phone: [facility] 11-04-2023 15:54-0500 Heart rate 66 /min Park Aichholz PAYMENT PROCESSOR Work Phone: [facility] 11-04-2023 15:54-0500 Respiratory rate 18 /min Park Aichholz PAYMENT PROCESSOR Work Phone: [facility] 11-04-2023 15:54-0500 SaO2% (BldA) [Mass fraction] 97 % Park Aichholz PAYMENT PROCESSOR Work Phone: [facility] 11-04-2023 15:54-0500 Systolic blood pressure 118 mm[Hg] Park Aichquiana SAEED Work Phone: [facility] 10-19-2023 15:01-0500 Blood Pressure Location Puneet BRIGGS [facility] 10-19-2023 15:01-0500 Diastolic blood pressure 60 mm[Hg] Puneet BRIGGS [facility] 10-19-2023 15:01-0500 Heart rate 64 /min Puneet BRIGGS [facility] 10-19-2023 15:01-0500 Respiratory rate 16 /min Puneet BRIGGS [facility] 10-19-2023 15:01-0500 Systolic blood pressure 109 mm[Hg] Puneet BRIGGS [facility] 04-13-2023 15:59-0400 Blood Pressure Location Puneet BRIGGS [facility] 04-13-2023 15:59-0400 Diastolic blood pressure 80 mm[Hg] Puneet BRIGGS [facility] 04-13-2023 15:59-0400 Heart rate 68 /min Puneet BRIGGS [facility] 04-13-2023 15:59-0400 Respiratory rate 16 /min Puneet BRIGGS [facility] 04-13-2023 15:59-0400 Systolic blood pressure 130 mm[Hg] Puneet BRIGGS [facility] 11-04-2022 14:37-0500 Blood Pressure Location Puneet BRIGGS [facility] 11-04-2022 14:37-0500 Diastolic blood pressure 69 mm[Hg] Puneet BRIGGS [facility] 11-04-2022 14:37-0500 Heart rate 68 /min Puneet BRIGGS [facility] 11-04-2022 14:37-0500 Systolic blood pressure 118 mm[Hg] Puneet BRIGGS [facility] 05-19-2022 15:59-0400 Blood Pressure Location Puneet BRIGGS [facility] 05-19-2022 15:59-0400 Diastolic blood pressure 66 mm[Hg] Puneet BRIGGS [facility] 05-19-2022 15:59-0400 Heart rate 59 /min Puneet BRIGGS [facility] 05-19-2022 15:59-0400 Respiratory rate 16 /min Puneet BRIGGS [facility] 05-19-2022 15:59-0400 Systolic blood pressure 117 mm[Hg] Puneet BRIGGS [facility] Encounters Encounter Date Encounter Type Care Provider Facility Start: 02-18-2024 End: 02-18-2024 ambulatory PARK AICHHOLZ Not Available Start: 11-04-2023 End: 11-04-2023 ambulatory PARK AICHHOLZ Not Available Start: 11-04-2023 End: 11-04-2023 Office outpatient visit 15 minutes Park Yoder PAYMENT PROCESSOR Work Phone: [facility] Comment on above: 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); BMI 37.0-37.9, adult; Nonischemic cardiomyopathy (CMS/HCC); Primary hypertension (CMS/HCC); Chronic systolic heart failure (CMS/HCC); H/O bariatric surgery; Mixed hyperlipidemia (CMS/HCC) Start: 11-04-2023 Bamboo flowsheet Park Yoder PAYMENT PROCESSOR Work Phone: [facility] Start: 11-04-2023 Bamboo flowsheet Park Yoder PAYMENT PROCESSOR Work Phone: [facility] Start: 10-19-2023 ambulatory Puneet Dykesi ty:JAYASHREE [place] Start: 10-19-2023 End: 10-19-2023 Patient encounter procedure Puneet BRIGGS [facility] Start: 04-13-2023 End: 04-14-2023 ambulatory Puneet BRIGGS Facility:[facility] [place] Start: 04-13-2023 End: 04-13-2023 Patient encounter procedure Puneet BRIGGS [facility] [place] Start: 03-18-2023 End: 03-19-2023 ambulatory Puneet BRIGGS Facility:[facility] [place] Start: 03-18-2023 End: 03-18-2023 Patient encounter procedure Puneet BRIGGS [facility] Start: 11-24-2022 ambulatory Puneet BRIGGS Facili ty:[facility] [place] Start: 11-21-2022 End: 11-22-2022 ambulatory INSURANCE OFFICE SUPERVISOR PARK YODER Facility:[facility] Start: 11-04-2022 End: 11-05-2022 ambulatory Puneet BRIGGS Facility:[facility] [place] Start: 11-04-2022 End: 11-04-2022 Patient encounter procedure Puneet BRIGGS [facility] Start: 09-12-2022 End: 09-12-2022 ambulatory DEANNE OBRIEN . Facility:[facility] Start: 05-19-2022 End: 05-20-2022 ambulatory Puneet BRIGGS Facility: [place] Start: 05-19-2022 End: 05-19-2022 Patient encounter procedure Puneet Vandana ANAHI [facility] Start: 05-16-2022 End: 05-17-[address] DOCTOR HOWE Facility:[facility] Start: 04-30-2022 End: 04-30-[address] CASSIDY DILLON Facility:[facility] Start: 03-07-2022 End: 03-08-2022 ambulatory LILIANA YODER Facility:[facility] Start: 01-01-2022 End: 01-01-2022 Patient encounter procedure Ary ARTEAGA [facility] [place] Start: 12-18-2021 End: 12-18-[address] ARY ARTEAGA . Facility:[facility] Start: 12-14-2021 ambulatory LILIANA YODER Facil ity:[facility] Start: 12-03-2021 End: 12-04-2021 ambulatory LILIANA YODER Facility:[facility] Start: 04-14-2019 End: 04-15-2019 Patient encounter procedure PARK YODER [facility] Start: 01-28-2018 End: 01-29-2018 Ambulatory DEFAULT PHYSICIAN Facility:[facility] Procedures Date Procedure Procedure Detail Performing Clinician Start: 11-21-[address] PUNEET BRIGGS . Comment on above: Performed By: #### PSAD #### [facility] [address] [place] [address] Dr. Santhosh Francois Start: 11-04-2022 Cystoscopy Puneet BRIGGS Start: 05-16-[address] PUNEET BRIGGS . Comment on above: Performed By: #### PSAD #### [facility] [address] [place] [address] Dr. Santhosh Francois Start: 12-18-2021 Colonoscopy Ary PRICEL Start: 12-18-2021 Esophagogastroduodenoscopy Ary PRICEL Start: 11-14-2021 MRI-US fusion guided transrectal biopsy of prostate Ary PRICEL Start: 03-27-2021 Transrectal biopsy of prostate using ultrasound guidance Ary PRICEL Start: 03-22-2020 Transurethral prostatectomy Ary PRICEL Start: 04-14-2019 Assay of iron PARK MATTHHOLZ Start: 04-14-2019 Comprehensive metabolic panel PARK AICHH OLZ Start: 04-14-2019 Cyanocobalamin vitamin b-12 PARK AICHHOL Z Start: 01-12-2017 Cystoscope, device (physical object) Ary PRICEL Start: 09-28-1999 Esophagogastrostomy, antesternal or antethoracic Ary NILL Appendectomy Ary NILL Cardiac catheterization Devang aenicolas PRICEL Cholecystectomy Ary NILL Colonoscopy Ary NILL History of radiofreq uency ablation operation for arrhythmia Ary PRICEL Lithotripsy Ary PRICEL Comment on above: x3 Repair of umbilical hernia Guru PRICEL Plan of Treatment Date Care Activity Detail Author Start: 12-28-2023 Screening for malign ant neoplasm of colon [facility] Start: 05-29-2023 Influenza vaccination Influenza Vacc ine (#1) [facility] Start: 11-28-1963 Pneumococcal Vaccine : 65+ Years (1 - PCV) Pneumococcal Vaccine: 65+ Years (1 - PCV) [facility] Start: 1955 Screening for malign ant neoplasm of colon [facility] Immunizations Immunization Date Immunization Notes Care Provider Hipolito wienstein 08-12-2023 Influenza, High-dose Seasonal, Quadrivalent, Preservative Free 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 01-23-2021 SARS-CoV-2 (COVID-19 ) mRNA BNT-162b2 vax Puneet BRIGGS [facility] 09-28-2020 SARS-CoV-2 (COVID-19 ) mRNA BNT-162b2 vax Ary ARTEAGA [facility] [place] 07-02-2020 influenza virus vaccine, unspecified formulation Ary CHANDLER [facility] [place] Payers Date Payer Category Payer Unknown 1957 Unknown [id number] 1955 Unknown [id number] 2.16.84 [id number] 1957 Unknown [id number] 2.16.84 [id number] 1957 Unknown [id number] 2.16.84 0.1.433117.3.579.2.593 1957 Unknown [id number] 2.16.84 0.1.533502.3.579.2.593 1957 Unknown [id number] 2.16.84 0.1.395646.3.579.2.593 1957 Unknown [id number] 2.16.84 0.1.334084.3.579.2.593 1957 Unknown [id number] 2.16.84 0.1.795649.3.579.2.593 1957 Unknown [id number] 2.16.84 0.1.780575.3.579.2.593 1957 Unknown [id number] 2.16.84 0.1.899352.3.579.2.593 1957 Unknown [id number] 2.16.8 40.1.636117.3.579.2.727 1957 Unknown [id number] 2.16.8 40.1.125202.3.579.2.727 1957 Unknown [id number] 2.16.8 40.1.922162.3.579.2.727 1957 Unknown [id number] 2.16.8 40.1.009715.3.579.2.727 1957 Unknown [id number] 2.16.8 40.1.353958.3.579.2.727 1957 Unknown [id number] 2.16.8 40.1.049423.3.579.2.727 1957 Unknown [id number] 2.16.84 0.1.738426.3.579.2.1259 1957 Unknown [id number] 2.16.84 0.1.079881.3.579.2.1259 Social History Date Type Detail Facility Start: 12-06-2021 End: 10-26-2023 Tobacco smoking status Never smoked tobacco (finding) [facility] [place] Tobacco smoking status Never [facility] [place] Start: 10-26-2023 End: 11-04-2023 Sex Assigned At Male [facility] Start: 10-19-2023 Tobacco smoking status Light t obacco smoker (finding) [facility] Start: 10-26-2023 End: 11-04-2023 History of Social function [facility] Start: 1955 Sex Assigned At Not on file [facility] Start: 11-04-2023 Alcohol intake Ex-drinker (finding) [facility] Start: 11-04-2023 Alcohol Comment caffine: 3 cups lucretia y [facility] Functional Status Date Assessment Result Facility 10-19-2023 Functional Status Yes [facility] 04-13-2023 Functional Status N/A [facility] 11-04-2022 Functional Status N/A [facility] 05-19-2022 Functional Status N/A [facility] Clinical Notes 12-18-2021 to 11-04-2023 Park [...] cont current meds documented in this encounter [facility] 10-19-2023 Hospital Discharge instructions Patient Education [...] urethra. Follow these instructions at home: Take lfpw-dzj-uejzslq and prescription medicines only as told by [...] provider. Document Revised: 04/02/2022 Document Reviewed: 04/02/2022 Elsevier Patient Education 2022 [employer]. Follow Up Care 04/13/2023 16:26:55 With:ANAHI MCDONALD, DELANEY Conti Address: [facility] [address] [place] [address]- When:Within 1 Year(s) Comments:w/PSA [facility] [place] 04-13-2023 Hospital Discharge instructions Patient [...] the likelihood that the cancer will spread. Marixa 6 or lower: This indicates that the cancer cells look similar to normal prostate cells (well differentiated). Marixa 7: This indicates that the cancer cells look somewhat similar to normal prostate cells (moderately differentiated). Chappell 8, 9, or 10: This indicates that [...] stress of having cancer. General instructions Take sswu-ihx-bghfbvj and prescription medicines only as told by your health care provider. If you have to go to the hospital, notify your cancer specialist (oncologist). Keep all follow-up visits. This is important. Where to find more information [place] [employer]: www.cancer.org [place] [employer] of Clinical Oncology: www.cancer.net National Cancer Ignacio: www.cancer.gov Contact a health care provider if: [...] provider. Document Revised: 12/11/2021 Document Reviewed: 12/11/2021 [employer] Patient Education 2022 [employer]. Follow Up Care 03/16/2023 14:05:40 With:ANAHI MCDONALD, Puneet Ross, URL Address: [facility] [address] [place] [phone] When: Unknown Comments:6 mos w/ PSA and PVR [facility] 11-03-2022 Hospital Discharge instructions Patient Education [...] urethra. Follow these instructions at home: Take wkzk-dtw-dkhodps and prescription medicines only as told by [...] 09/14/2006 Document Revised: 08/09/2019 Document Reviewed: 10/19/2017 [employer] Patient Education 2020 [employer]. Follow Up Care 10/13/2022 13:53:44 With:ANAHI MCDONALD, Puneet Ross, URL Address: [facility] [address] , [place] [address]- When: Unknown [facility] 05-19-2022 Hospital Discharge instructions Patient Education 05/19/2022 16:24:13 Prostatitis, Tfgg-qs-Hkjr Prostatitis Prostatitis is swelling of the prostate gland. The prostate helps to make semen. It is below a man's bladder, in front of the rectum. There are different types of prostatitis. Follow these instructions at home: Take fbhi-nkz-tcjfafn and prescription medicines only as told by [...] 03/15/2013 Document Revised: 08/27/2018 Document Reviewed: 06/04/2017 [employer] Patient Education 2020 [employer]. 05/19/2022 16:24:11 Calorie Counting for Weight Loss [...] 09/14/2006 Document Revised: 06/03/2019 Document Reviewed: 08/14/2017 [employer] Patient Education 2020 [employer]. Follow Up Care 11/22/2021 12:25:13 With:ANAHI MCDONALD, Puneet Ross, URL Address: [address] [place] [address] Business (1) When:Within 6 Month(s) Comments:w/EFSTUS [facility] 12-18-2021 Note OPERATIVE NOTE PREOPERATIVE DIAGNOSIS: [...] to the poor prep. CC: Park Yoder, [facility] Signed and Approved by: DR ARY ARTEAGA . 12/20/2021 11:57:00 [facility] Evaluation + Plan note Future Appointments Appointment Date:05/19/2022 03:15:00 PM Scheduled Provider:Puneet BRIGGS MD Location:[facility] Appointment Type:URO Office Visit [facility] [place] Evaluation + Plan note Future Appointments Appointment Date:11/24/2022 03:30:00 PM Scheduled Provider:Puneet BRIGGS MD Location:[facility] Appointment Type:URO Office Visit Diagnostic Tests PendingPSA Total 05/19/22 [facility] Evaluation + Plan note Future Appointments Appointment Date:03/18/2023 08:30:00 AM Scheduled Provider:Puneet BRIGGS MD Location:[facility] Appointment Type:URO Office Visit Diagnostic Tests PendingUroVysion [facility]) 11/04/22 [facility] Intrallect Evaluation + Plan note Future Appointments Appointment Date:03/23/2023 03:00:00 PM Scheduled Provider:Puneet BRIGGS MD Location:[facility] Appointment Type:URO Office Visit [facility] Intrallect Evaluation + Plan note Future Appointments Appointment Date:10/19/2023 02:45:00 PM Scheduled Provider:Puneet BRIGGS MD Location:[facility] Appointment Type:URO Office Visit Diagnostic Tests PendingPSA Total 04/13/23 [facility] Intrallect Evaluation + Plan note Future Appointments Appointment Date:10/24/2024 03:00:00 PM Scheduled Provider:Puneet BRIGGS MD Location:[facility] Appointment Type:URO Office Visit Diagnostic Tests PendingPSA Total 10/19/23 [facility] Evaluation note Diagnosis Iron deficiency anemia following bariatric surgery- Primary BMI 37.0-37.9, adult Nonischemic cardiomyopathy (CMS/HCC) Other primary cardiomyopathies Primary hypertension (CMS/HCC) Unspecified essential hypertension Chronic systolic heart failure (CMS/HCC) Chronic systolic heart failure H/O bariatric surgery Mixed hyperlipidemia (CMS/HCC) Mixed hyperlipidemia documented in [facility] Narrative No data available for this section General Surgery [facility] Discharge instructions No data available for this section General Surgery [facility] Progress note No data available for this section [facility] Natalie Summary Purpose Family History No Family History [...] section and content) DATE CREATED AUTHOR 03/18/2018 [facility] DATE CREATED AUTHOR AUTHOR'S ORGANIZ ATION 04/15/2019 [facility] DATE CREATED AUTHOR AUTHOR'S ORGANIZ ATION 12/16/2021 [facility] DATE CREATED AUTHOR AUTHOR'S ORGANIZ ATION 11/28/2022 [facility] DATE CREATED AUTHOR AUTHOR'S ORGANIZ ATION 04/14/2023 [facility] DATE CREATED AUTHOR AUTHOR'S ORGANIZ ATION 02/20/2024 [facility] EPIC Care Team (unrecognized sect ion and content) Instructor Modeling Relationship Specialty Start Date End Date Kenny Hartley MD [address] [place] [id number] PCP - General Family Medicine 10/26/23 Instructor Modeling Relationship Specialty Start Date End Date Kenny Hartley MD [address] [place] [phone] PCP - General Family Medicine 10/26/23 FOR [...] BE BASED ON THE PRIMARY CLINICAL RECORDS. [facility]. provides no warranty or guarantee of the accuracy or completeness of information in this document.
[2024-03-03 17:00] LABS: Alanine Aminotransferase 121 U/L (16-63); Albumin Globulin Ratio 1.2; Albumin Level 3.6 g/dL (3.4-5.0); Alkaline Phosphatase 142 U/L (46-116); Anion Gap 15.2; Aspartate Amino Transferase 64 U/L (15-37); BUN Creatinine Ratio 26.4; Bilirubin Total 1.1 mg/dL (0.2-1.0); Calcium 7.6 mg/dL (8.5-10.1); Carbon Dioxide 19.9 mmol/L (21.0-32.0); Chloride 111 mmol/L (98-107); Estimated GFR (African America >60 (>=60); Estimated GFR (Non-African Ame 58 (>=60); Glucose 86 mg/dL (74-106); Potassium 4.1 mmol/L (3.5-5.1); Sodium 142 mmol/L (136-145); Total Protein 6.6 g/dL (6.4-8.2)
== END 2024-03-03 16:12 | disposition home or self-care (01) ==
LOC: LAB 16:13
PROVIDERS: PCP Nurse Practitioner; Visit Provider Nurse Practitioner
DX: R79.89 Other specified abnormal findings of blood chemistry (principal)
CPT/HCPCS: 36415; 80053

== ENCOUNTER 2024-03-17 15:04 | Outpatient (RCR) | payer BC, SELFPAY | END 2024-04-15 15:46 | disposition home or self-care (01) | LOC: PT 15:04 | PROVIDERS: PCP Nurse Practitioner; Visit Provider Nurse Practitioner | DX: M51.36 Other intervertebral disc degeneration, lumbar region (principal); M50.30 Other cervical disc degeneration, unspecified cervical region | CPT/HCPCS: 97110; 97112; 97140 ==

== ENCOUNTER 2024-04-02 08:22 | Outpatient (OUT) | payer BC, SELFPAY ==
--- NOTE | 2024-04-02 | US_ITS ---
The [address] [address] Patient Name: SHABNAM BURGESS MRN: [id number] date: 1955 Sex: M Assigned Patient Location: US Current Patient Location: US Accession/Order Number: [id number] Exam Date: 04/02/2024 08:36 Report Date: 04/03/2024 19:07 At the request of: CARMEN EL Procedure: US right upper quadrant PROCEDURE: US right upper quadrant, 04/02/2024 8:36 AM EDT CLINICAL INDICATIONS: Elevated liver function tests, cholecystectomy COMPARISON: CT abdomen and pelvis 04/30/2022 TECHNIQUE: Right upper quadrant abdominal sonogram, grayscale, color evaluation. FINDINGS: Fat infiltration or atrophy of the visualized pancreas is noted. Ductal dilatation is not evident. Majority of head and tail segments obscured. Hepatic assessment limited given necessity for intercostal imaging. Right lobe is enlarged up to 20 cm longitudinally. Visualized portal vein patent, antegrade flow. Normal velocity 34 cm/s. Coarsened echotexture is seen. Contour is smooth. Focal abnormality not demonstrated. Gallbladder surgically absent. Common bile duct normal 0.2 cm. Right kidney: 11.1 x 5.3 x 4.5 cm. A 0.8 x 0.6 x 0.8 cm upper pole right renal cyst noted. Nephrolithiasis or hydronephrosis is not evident. No free fluid. US/US right upper quadrant IMPRESSION: 1. Fatty infiltration or atrophy of the visualized pancreas. 2. Hepatomegaly, coarsened echotexture, no focal abnormality. 3. Cholecystectomy, no biliary dilatation. 4. 0.8 cm benign-appearing right renal cyst. Electronically authenticated by: SAM WILSON Date: 04/03/2024 19:07
--- OUTSIDE RECORDS SUMMARY | 2024-04-02 08:25 | XMS_ITS ---
Patient Summarization (C-CDA 2.1 CCD) Created on: April 02, 2024 SHABNAM BURGESS : 1955 Sex: Male Author Organization Sample organization Care Team Providers Care Director Of Enterprise Architecture Name Role Phone PHYSICIAN, DEFAULT Unavailable Unavailable PHYSICIAN, DEFAULT Unavailable Unavailable AICHHOLZ, PARK J. Referring Unavailable AICHHOLZ, PARK J. Primary Care Unavailable AICHHOLZ, PARK J Primary Care Physician ANAHI ., DR NGUYỄN Consulting Unavailable BRIGGS ., DR NGUYỄN Admitting Unavailable BRIGGS ., DR NGUYỄN Attending Unavailable AICHHOLZ, BUSINESS REPRESENTATIVE PARK Primary Care Unavailable MISC, DR AYERS Consulting Unavailable MISC, DR AYERS Admitting Unavailable MISC, DR AYERS Attending Unavailable AICHHOLZ, BUSINESS REPRESENTATIVE PARK Primary Care Unavailable AICHHOLZ, BUSINESS REPRESENTATIVE PARK Consulting Unavailable AICHHOLZ, BUSINESS REPRESENTATIVE PARK Primary Care Unavailable BRIGGS ., DR NGUYỄN Admitting Unavailable BRIGGS ., DR NGUYỄN Attending Unavailable ZIEBER, DR CASSIDY Ross Consulting Unavailable ELI DALAL Attending Unavailable ELI DALAL Admitting Unavailable AICHHOLZ, BUSINESS REPRESENTATIVE PARK Primary Care Unavailable JENNIFER DRAKE Consulting Unavailable DEANNE OTOOLE Consulting UnavailIASCC Sidhu Admitting Unavailable ISACC BEJARANO Attending Unavailable AICHHOLZ, BUSINESS REPRESENTATIVE PARK Primary Care Unavailable EUGENIO .ISCAC Consulting Unavailable AICHHOLZ, BUSINESS REPRESENTATIVE PARK Primary Care Unavailable NILL ., DR MCALLISTER Admitting Unavailable NILL ., DR MCALLISTER Attending Unavailable NILL ., DR MCALLISTER Consulting Unavailable AICHHOLZ, BUSINESS REPRESENTATIVE PARK Primary Care Unavailable NILL ., DR MCALLISTER Admitting Unavailable NILL ., DR MCALLISTER Attending Unavailable AGUBJOHN, GRACE Consulting Unavailable JUAN ORO Consulting Unavailable AICHHOLZ, BUSINESS REPRESENTATIVE PARK Consulting Unavailable AICHHOLZ, BUSINESS REPRESENTATIVE PARK Primary Care Unavailable AICHHOLZ, BUSINESS REPRESENTATIVE PARK Admitting Unavailable AICHHOLZ, BUSINESS REPRESENTATIVE PARK Attending Unavailable AICHHOLZ, BUSINESS REPRESENTATIVE PARK Consulting Unavailable AICHHOLZ, BUSINESS REPRESENTATIVE PARK Admitting Unavailable AICHHOLZ, BUSINESS REPRESENTATIVE PARK Attending Unavailable AICHHOLZ, BUSINESS REPRESENTATIVE PARK Primary Care Unavailable Puneet BRIGGS Attending Unavailable ANAHI, Puneet Ross Attending Unavailable ANAHI, Puneet R Attending Unavailable ANAHI, Puneet R Attending Unavailable ANAHI, Puneet R Attending Unavailable ANAHI, Puneet R Attending Unavailable Kenny Hartley MD Primary Care Provider MELLYZ, PARK Attending Unavailable AICHHOLZ, PARK Attending Unavailable AICHHOLZ, PARK Attending Unavailable Encounters Encounter Date Encounter Type Care Provider Facility Start: 03-30-2024 End: 03-30-2024 ambulatory PARK AICHHOLZ Not Available Start: 02-18-2024 End: 02-18-2024 ambulatory PARK AICHHOLZ Not Available Start: 11-04-2023 End: 11-04-2023 ambulatory PARK AICHHOLZ Not Available Start: 11-04-2023 End: 11-04-2023 Office outpatient visit 15 minutes Park Yoder DIRECTOR OF GOLF Work Phone: [facility] Comment on above: 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); BMI 37.0-37.9, adult; Nonischemic cardiomyopathy (CMS/HCC); Primary hypertension (CMS/HCC); Chronic systolic heart failure (CMS/HCC); H/O bariatric surgery; Mixed hyperlipidemia (CMS/HCC) Start: 11-04-2023 Bamboo flowsheet Park Aichholz DIRECTOR OF GOLF Work Phone: [facility] Start: 11-04-2023 Bamboo flowsheet Park Aichholz DIRECTOR OF GOLF Work Phone: [facility] Start: 10-19-2023 ambulatory [facility]uneet [facility]IGGS [facility] [place] Start: 10-19-2023 End: 10-19-2023 Patient encounter procedure Puneet BRIGGS [facility] Start: 04-13-2023 End: 04-14-2023 ambulatory Puneet BRIGGS Facility:[facility] Start: 04-13-2023 End: 04-13-2023 Patient encounter procedure Puneet R BRIGGS [facility] [place] Start: 03-18-2023 End: 03-19-2023 ambulatory Puneet Vandana ANAHI Facility:[facility] Start: 03-18-2023 End: 03-18-2023 Patient encounter procedure Puneet R BRIGGS [facility] Start: 11-24-2022 ambulatory Puneet Dykesi ty:[facility] [place] Start: 11-21-2022 End: 11-22-2022 ambulatory BUSINESS REPRESENTATIVE PARK YODER Facility:[facility] Start: 11-04-2022 End: 11-05-2022 ambulatory Puneet Vandana ANAHI Facility:[facility] Start: 11-04-2022 End: 11-04-2022 Patient encounter procedure Puneet BRIGGS [facility] Start: 09-12-2022 End: 09-12-2022 ambulatory DEANNE OBRIEN . Facility:[facility] Start: 05-19-2022 End: 05-20-2022 ambulatory Puneet BRIGGS Facility:[facility] Start: 05-19-2022 End: 05-19-2022 Patient encounter procedure Puneet R ANAHI [facility] [place] Start: 05-16-2022 End: 05-17-[address] DOCTOR HOWE Facility:[facility] Start: 04-30-2022 End: 04-30-[address] CASSIDY DILLON Facility:[facility] Start: 03-07-2022 End: 03-08-2022 ambulatory LILIANA YODER Facility:[facility] Start: 01-01-2022 End: 01-01-2022 Patient encounter procedure Ary ARTEAGA [facility] [place] Start: 12-18-2021 End: 12-18-[address] ARY ARTEAGA . Facility:[facility] Start: 12-14-2021 ambulatory LILIANA Dykes ity:[facility] Start: 12-03-2021 End: 12-04-2021 ambulatory LILIANA YODER Facility:[facility] Start: 04-14-2019 End: 04-15-2019 Patient encounter procedure PARK YODER [facility] Start: 01-28-2018 End: 01-29-2018 Ambulatory DEFAULT PHYSICIAN Facility:[facility] Immunizations Immunization Date Immunization Notes Care Provider [facility] 08-12-2023 Influenza, High-dose Seasonal, Quadrivalent, Preservative Free Park Terrazasnicolettebrook DIRECTOR OF GOLF Work Phone: [facility] 07-29-2021 influenza virus vaccine, unspecified formulation Ary ARTEAGA [facility] [place] 02-13-2021 SARS-CoV-2 (COVID-19 ) mRNA [id number] vax Puneet BRIGGS [facility] 01-23-2021 SARS-CoV-2 (COVID-19 ) mRNA BNT-162b2 vax Puneet BRIGGS [facility] 09-28-2020 SARS-CoV-2 (COVID-19 ) mRNA BNT-162b2 vax Ary ARTEAGA [facility] [place] 07-02-2020 influenza virus vaccine, unspecified formulation Ary ARTEAGA [facility] [place] Medications Current Medications Medication Drug Class(es) Dates [...] Start: 10-24-2019 take 1 tablet by brissa once daily metoprolol 25 mg ER Tab [...] procedure, # 2 tab(s), Refills(s) 0, Pharmacy: [id number], 176, cm, 05/19/22 16:10:00 EDT, Height/Length Dosing, 115, kg, 05/19/22 16:10:00 ED... Start Date: 10/13/22 Status: Ordered Payers Date Payer Category Payer Unknown 1957 Unknown [id number] 1955 Unknown [id number] 2.16.84 [id number] 1955 Unknown [id number] 2.16.84 0.1.798407.3.579.2.593 1955 Unknown [id number] 2.16.84 0.1.387844.3.579.2.593 1955 Unknown [id number] 2.16.84 0.1.385450.3.579.2.593 1955 Unknown [id number] 2.16.84 0.1.571857.3.579.2.593 1955 Unknown [id number] 2.16.84 0.1.478115.3.579.2.593 1955 Unknown [id number] 2.16.84 0.1.201644.3.579.2.593 1955 Unknown [id number] 2.16.84 0.1.218730.3.579.2.593 1955 Unknown [id number] 2.16.84 0.1.861462.3.579.2.593 1955 Unknown [id number] 2.16.8 40.1.746686.3.579.2.727 1955 Unknown [id number] 2.16.8 40.1.463118.3.579.2.727 1955 Unknown [id number] 2.16.8 40.1.550090.3.579.2.727 1955 Unknown [id number] 2.16.8 40.1.329669.3.579.2.727 1955 Unknown [id number] 2.16.8 40.1.692804.3.579.2.727 1955 Unknown [id number] 2.16.8 40.1.442359.3.579.2.727 1955 Unknown [id number] 2.16.84 0.1.238185.3.579.2.1259 1955 Unknown [id number] 2.16.84 0.1.187231.3.579.2.1259 1955 Unknown [id number] 2.16.84 0.1.715704.3.579.2.1259 1955 Unknown [id number] 2.16.84 0.1.808628.3.579.2.1259 Plan of Treatment Date Care Activity Detail Author Start: 12-28-2023 Screening for malign ant neoplasm of colon [facility] Start: 05-29-2023 Influenza vaccination Influenza Vacc ine (#1) [facility] Start: 11-28-1963 Pneumococcal Vaccine : 65+ Years (1 - PCV) Pneumococcal Vaccine: 65+ Years (1 - PCV) [facility] Start: 1955 Screening for malign ant neoplasm of colon [facility] Problems Active Problems Problem Classification Problem Date [...] source) snf (current) use of aspirin; Translations: [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 Comment on above: Performed By: #### PSAD #### [facility] [address] [place] [address] Dr. Santhosh Francois Start: 11-04-2022 Cystoscopy Puneet BRIGGS Start: 05-16-[address] PUNEET BRIGGS . Comment on above: Performed By: #### PSAD #### [facility] [address] [place], [place] [id number] Dr. Santhosh Francois Start: 12-18-2021 Colonoscopy Ary ARTEAGA Start: 12-18-2021 Esophagogastroduodenoscopy Ary ARTEAGA Start: 11-14-2021 MRI-US fusion guided transrectal biopsy of prostate Ary PRICEL Start: 03-27-2021 Transrectal biopsy of prostate using ultrasound guidance Ary PRICEL Start: 03-22-2020 Transurethral prostatectomy Ary PRICEL Start: 04-14-2019 Assay of iron PARK YODER Start: 04-14-2019 Comprehensive metabolic panel PARK ABRAHAM OLZ Start: 04-14-2019 Cyanocobalamin vitamin b-12 PARK PICKARD Z Start: 01-12-2017 Cystoscope, device (physical object) Ary PRICEL Start: 09-28-1999 Esophagogastrostomy, antesternal or antethoracic Ary NILL Appendectomy Ary NILL Cardiac catheterization Devang ael ALBERTL Cholecystectomy Ary NILL Colonoscopy Ary NILL History of radiofreq uency ablation operation for arrhythmia Ary NILL Lithotripsy Ary NILL Comment on above: x3 Repair of umbilical hernia M ritika PRICEL Results Test Name Value Interpretation Reference Range Facility Ambulatory Visit Summaryon 0 04-13-2023 Ambulatory Visit Summary SHABNAM BURGESS :1955 Visit Date:04/13/2023 Ambulatory Visit Instructions Your Diagnosis Prostate cancer BPH with urinary obstruction Gross hematuria Chronic prostatitis Kidney stones Renal cyst Tests Performed Urnls Dip Stick Auto w/o Microscopy POC 41019 Your Care Team Attending Physician - ANAHI [...] MCDONALD, Puneet Ross Where: [facility] Patient Educationon 04-13-20 Patient Education Oncology [...] to normal prostate cells (well differentiated). ? [place] 7: This indicates that the cancer cells look somewhat similar to normal prostate cells (moderately differentiated). ? [place] 8, 9, or 10: This indicates that [...] external be (more content not included)... Normal [facility] Reminderson 04-13-2023 Reminders - From: Shala Soares To: JAYASHREE Briggs; Sent: 04/13/2023 16:27:00 EDT Show up: 09/13/2023 15:26:00 EST Subject: PSA Reminder Message Please Remember to:_get PSA (at [facility]) prior to next appt. Normal [facility] Urology Office/Clinic Noteon 04-13-2023 Urology Office/Clinic Note [...] [facility] [address], [place] [address]- [phone] Additional Instructions: 6 mos w/ PSA and PVR Patient Education Prostate Cancer I, Shala Soares, personally scribed for Dr. Briggs on 04/13/2023 16:25:11. . Documentation recorded by the scribe, Shlaa Soares, accurately reflects the services(s) I performed [...] of prostat (more content not included)... Normal [facility] Comment on above: Result Comment: Electronically Signed By : Puneet BRIGGS MD\.br\Date and Time Signed: 04/13/23 16:26 EDT\.br\Electronically Co-Signed By: Shala Soares\.br\Date and Time Co-Signed: 04/13/23 16:25 EDT Lab Reportson 11-30-2022 Lab Reports [id number]:127 Normal [facility] UroVysion Fish and Urine Cyt o ([facility])on 11-13-2022 UVFISH & UC Diagnosis Info Invalid Interpretation Code [facility] Comment on above: Result Comment: [...] 170 Hematuria: Gross Description Site ID:A color [place] fixative Alcohol Received 80 mls of clear orange fluid with the patient's name and, Urine on the vial. Electronically signed by : on: 11/13/2022 08:34:30 Performed By: #### 1 [id number] ####[facility] [address] [place] [address] Consent for Procedure/Surger yon 11-05-2022 Consent for Procedure/Surge ry [id number]:127 Normal [facility] UroVysion Fish and Urine Cyt o ([facility])on 11-04-2022 UVUC Method of Extraction Bladder Urine Normal [facility] Comment on above: Performed By: #### [id number] ####[facility] [address] [place] [address] [facility] Number of Jars 1 Invalid Interpretation Code [facility] Comment on above: Performed By: #### [id number] ####[facility] [address] [place] [address] [facility] Specimen Urine Normal [facility] Comment on above: Performed By: #### [id number] ####[facility] [address] [place] [address] [facility] Type of Service Global Normal [facility] Comment on above: Performed By: #### [id number] ####[facility] [address] [place] [address] Urology Office/Clinic Noteon 11-04-2022 Urology Office/Clinic Note [...] blood and clots on 09/12/22. Went to [facility] ER, they did urine cx. Was [...] [facility] [address], [place] [address]- Additional Instructions: f/u 4 mos Patient Education [...] of lower (more content not included)... Normal [facility] Comment on above: Result Comment: [...] Follow these instructions at home: ? Take ueck-piq-epgqrwu and prescription medicines only as told by [...] You d (more content not included)... Normal [facility] Pre-Certification Formon Pre-Certificati on Form [id number]:127 Normal [facility] ER URINE PROFILEon 2 Bilirubin Ql (U) Negative Normal NEGATIVE [facility] Comment on above: Performed By: #### NICOL, ERUR #### [facility] [address] [place] [address] Dr. Santhosh Francois Clarity (U) CLEAR Normal CLEAR [facility] Comment on above: Performed By: #### NICOL, ERUR #### [facility] [address] [address] [address] Santhosh Francois Color (U) LT. YELLOW Normal YELLOW [facility] Comment on above: Performed By: #### NICOL ERUR #### [facility] [address] [place] [address] Dr. Santhosh PALACIOS A micrscopic examina tion will be performed if indicated. Normal [facility] Comment on above: Performed By: #### NICOL, ERUR #### [facility] [address] [address] [address] Santhosh Francois Glucose Ql (U) Negative Normal NEGATIVE [facility] Comment on above: Performed By: #### NICOL ERUR #### [facility] [address] [place] [address] Dr. Santhosh Francois Hemoglobin Ql (U) LARGE Abnormal NEGATIVE [facility] Comment on above: Performed By: #### NICOL, ERUR #### [facility] [address] [place] [address] Dr. Santhosh Francois Ketones Ql (U) Negative Normal NEGATIVE [facility] Comment on above: Performed By: #### NICOL, ERUR #### [facility] [address] [address] [address] Santhosh Francois LEUKOCYTES Negative Normal NEGATIVE [facility] Comment on above: Performed By: #### NICOL, ERUR #### [facility] [address] [place] [address] Dr. Santhosh Francois Nitrite Ql (U) Negative Normal NEGATIVE [facility] Comment on above: Performed By: #### NICOL, ERUR #### [facility] [address] [place] [address] Dr. Santhosh Francois pH (U) 5.0 [pH] Normal 5-9 [facility] Comment on above: Performed By: #### NICOL ERUR #### [facility] [address] [place] [address] Dr. Santhosh Francois SPEC GRAVITY 1.010 Normal 1.005-<=1.02 5 [facility] Comment on above: Performed By: #### NICOL, ERUR #### [facility] [address] [place] [address] Dr. Santhosh Francois UA PROTEIN TRACE Normal NEGATIVE/ TRACE [facility] Comment on above: Performed By: #### NICOL ERUR #### [facility] [address] [place] [address] Dr. Santhosh Francois UR MICRO IND INDICATED Normal [facility] Comment on above: Performed By: #### NICOL ERUR #### [facility] [address] [place] [address] Dr. Santhosh Francois Urobilinogen Qn (U) 0.2 {Malini'U}/dL Normal 0.2 - 1.0 [facility] Comment on above: Performed By: #### NICOL ERUR #### [facility] [address] [place] [address] Dr. Santhosh Francois URINE MICROSCOPIC ONLYon BACTERIA NONE SEEN Normal NONE SEEN [facility] Comment on above: Performed By: #### CBC #### [facility] [address] [place] [address] Dr. Santhosh Francois Bacteria identified Cx Nom (U) NOT INDICATED Normal [facility] Comment on above: Performed By: #### CBC #### [facility] [address] [place] [address] Dr. Santhosh Francois CAST NONE SEEN Normal NONE SEEN [facility] Comment on above: Performed By: #### CBC #### [facility] [address] [place] [address] Dr. Santhosh Francois Crystals LM Nom (Urine sed) NONE SEEN Normal NONE SEEN [facility] Comment on above: Performed By: #### CBC #### [facility] [address] [address] [address] Santhosh Francois Epithelial cells LM Ql (Urine sed) RARE Normal NONE SEEN /RARE [facility] Comment on above: Performed By: #### CBC #### [facility] [address] [place] [address] Dr. Santhosh Francois MUCOUS NONE SEEN Normal NONE SEEN [facility] Comment on above: Performed By: #### CBC #### [facility] [address] [place] [address] Dr. Santhosh Francois RBC 10-20 Abnormal 0-2 [facility] Comment on above: Performed By: #### CBC #### [facility] [address] [place] [address] Dr. Santhosh Francois WBC NONE SEEN Normal NONE SEEN [facility] Comment on above: Performed By: #### CBC #### [facility] [address] [place] [address] Dr. Santhosh Francois Lab Reportson 05-20-2022 Lab Reports [id number]:127 Normal [facility] Ambulatory Visit Summaryon 0 05-19-2022 Ambulatory Visit Summary SHABNAM BURGESS :1955 Visit Date:05/19/2022 Ambulatory Visit Instructions Your Diagnosis Prostate cancer Chronic prostatitis BPH with urinary obstruction Kidney stones BMI 36.0-36.9,adult Other obstructive and reflux uropathy Tests Performed Urnls Dip Stick Auto w/o Microscopy POC 96739 Your Care Team Attending Physician - ANAHI [...] MCDONALD, Puneet Ross Where: [facility] Patient Educationon 05-19-20 Patient Education Infectious Disease Prostatitis Prostatitis is swelling of the prostate gland. The prostate helps to make semen. It is below a man's bladder, in front of the rectum. There are different types of prostatitis. Follow these instructions at home: ? Take qwzg-uks-oaqbktp and prescription medicines only as told by [...] 03/15/2013 Document Revised: 08/27/2018 Document Reviewed: 06/04/2017 [employer] Patient Education ? 2020 [employer] Nutrition Calorie Counting for Weight Loss [...] not leave (more content not included)... Normal [facility] Urology Office/Clinic Noteon 05-19-2022 Urology [...] When Contact Information ANAHI MCDONALD, Puneet Ross, DELANEY In 6 months [address] [id number] [facility] (1) Additional Instructions: w/PSA Patient Education Prostatitis, Vbad-gw-Vnun Calorie Counting for Weight Loss Carey Willett personally scribed for Dr. Briggs on 05/19/2022 16:34:19. . Documentation recorded by the scribeCarey, accurately reflects the services(s) I performed and [...] Wine, Daily, (more content not included)... Normal [facility] Comment on above: Result Comment: Electronically Signed By : Puneet BRIGGS MD\.br\Date and Time Signed: 05/19/22 16:36 EDT\.br\Electronically Co-Signed By: Carey Gonzalez.br\Date and Time Co-Signed: 05/19/22 16:34 EDT LIPID PROFILEon 05-16-2022 CHOL-HDL RATIO NORM SEE BELOW Normal [facility] Comment on above: Result Comment: 3.3 - 4.4 LOW RISK 4.4 - 7.1 AVERAGE RISK 7.1 - 11.0 MODERATE RISK >11.0 HIGH RISK Performed By: #### C BC #### [facility] [address] [address] [address] Santhosh Francois Cholesterol [Mass/Vol] 58 mg/dL Normal <=200 [facility] Comment on above: Performed By: #### CBC #### [facility] [address] [address] [address] Santhosh Francois Cholesterol in HDL [Mass/Vol] 38 mg/dL Critically low 40-60 [facility] Comment on above: Performed By: #### CBC #### [facility] [address] [address] [address] Santhosh Francois Cholesterol in LDL [Mass/Vol] 14.0 mg/dL Normal [facility] Comment on above: Performed By: #### CBC #### [facility] [address] [address] [address] Santhosh Francois Cholesterol.tot al/Cholesterol in HDL [Mass ratio] 1.5 {ratio} Normal [facility] Comment on above: Performed By: #### CBC #### [facility] [address] [address] [address] Santhosh Francois HDL NORMAL > or = 60 mg/dl - LO W CARDIOVASCULAR RISK <40 mg/dl - HIGH CARDIOVASCULAR RISK Normal [facility] Comment on above: Performed By: #### CBC #### [facility] [address] [address] [address] Santhosh Francois LDL CALC NORMAL SEE BELOW Normal [facility] Comment on above: Result Comment: <100 mg/dl OPTIMAL 100 - 129 mg/dl NEAR OR ABOVE OPTIMAL 130 - 159 mg/dl BORDERLINE HIGH 160 - 189 mg/dl HIGH >190 mg/dl VERY HIGH Performed By: #### C BC #### [facility] [address] [address] [address] Santhosh Francois Triglyceride [Mass/Vol] 30 mg/dL Normal <=150 [facility] Comment on above: Performed By: #### CBC #### [facility] [address] [address] [address] Santhosh Francois VLDL CALC 6.0 mg/dL Normal [facility] Comment on above: Performed By: #### CBC #### [facility] [address] [address] [address] Santhosh Francois PROF 14(COMP METB)on 022 Albumin [Mass/Vol] 3.6 g/dL Normal 3.4-5.0 [facility] Comment on above: Performed By: #### CBC #### [facility] [address] [address] [address] Santhosh Francois Albumin/Globuli n [Mass ratio] 1.1 {ratio} Normal [facility] Comment on above: Performed By: #### CBC #### [facility] [address] [address] [address] Santhosh Francois ALP [Catalytic activity/Vol] 145 U/L Critically high 46-116 [facility] Comment on above: Performed By: #### CBC #### [facility] [address] [address] [address] Santhosh Francois ALT [Catalytic activity/Vol] 102 U/L Critically high 16-63 [facility] Comment on above: Performed By: #### CBC #### [facility] [address] [address] [address] Santhosh Francois Anion gap [Moles/Vol] 12.7 mmol/L Normal [facility] Comment on above: Performed By: #### CBC #### [facility] [address] [address] [address] Santhosh Francois AST [Catalytic activity/Vol] 68 U/L Critically high 15-37 [facility] Comment on above: Performed By: #### CBC #### [facility] [address] [address] [address] Santhosh Francois Bilirubin [Mass/Vol] 1.0 mg/dL Normal 0.2-1.0 [facility] Comment on above: Performed By: #### CBC #### [facility] [address] [address] [address] Santhosh Francois Calcium [Mass/Vol] 8.0 mg/dL Critically low 8.5-10.1 [facility] Comment on above: Performed By: #### CBC #### [facility] [address] [place] [address] Dr. Santhosh Francois Chloride [Moles/Vol] 111 mmol/L Critically high 98-107 [facility] Comment on above: Performed By: #### CBC #### [facility] [address] [address] [address] Santhosh Francois CO2 [Moles/Vol] 20.6 mmol/L Critically low 21.0-32.0 [facility] Comment on above: Performed By: #### CBC #### [facility] [address] [place] [address] Dr. Santhosh Francois Creatinine [Mass/Vol] 0.96 mg/dL Normal 0.70-1.30 [facility] Comment on above: Performed By: #### CBC #### [facility] [address] [place] [address] Dr. Santhosh Francois EGFR-AF CUBAN >60 Normal >=60 [facility] Comment on above: Performed By: #### CBC #### [facility] [address] [place] [address] Dr. Santhosh Francois EGFR-NON AF CUBAN >60 Normal >=60 [facility] Comment on above: Performed By: #### CBC #### [facility] [address] [address] [address] Santhosh Francois Globulin (S) [Mass/Vol] 3.2 g/dL Normal [facility] Comment on above: Performed By: #### CBC #### [facility] [address] [address] [address] Santhosh Francois Glucose [Mass/Vol] 88 mg/dL Normal 74-106 [facility] Comment on above: Performed By: #### CBC #### [facility] [address] [address] [address] Santhosh Francois Potassium [Moles/Vol] 4.3 mmol/L Normal 3.5-5.1 [facility] Comment on above: Performed By: #### CBC #### [facility] [address] [address] [address] Santhosh Francois Protein [Mass/Vol] 6.8 g/dL Normal 6.4-8.2 [facility] Comment on above: Performed By: #### CBC #### [facility] [address] [address] [address] Santhosh Francois Sodium [Moles/Vol] 140 mmol/L Normal 136-145 [facility] Comment on above: Performed By: #### CBC #### [facility] [address] [address] [address] Santhosh Francois Urea nitrogen [Mass/Vol] 26.0 mg/dL Critically high 7.0-18.0 [facility] Comment on above: Performed By: #### CBC #### [facility] [address] [address] [address] Santhosh Francois Urea nitrogen/Creati nine [Mass ratio] 27.1 mg/mg Normal [facility] Comment on above: Performed By: #### CBC #### [facility] [address] [address] [address] Santhosh Francois ED Note-Physicianon 05-07-20 ED Note-Physician [id number]:127 Normal [facility] RAD - CT Reporton 05-06-2022 RAD - CT Report [id number]:127 Normal [facility] CBC AUTO DIFFon 04-30-2022 BASO # 0.0 103/ul Normal 0.0-0.1 [facility] Comment on above: Performed By: #### CBC #### [facility] [address] [address] [address] Santhosh Francois Basophils/100 WBC (Bld) 0.5 % Normal 0.2-2.0 [facility] Comment on above: Performed By: #### CBC #### [facility] [address] [address] [address] Santhosh Francois EO # 0.2 103/ul Normal 0.0-0.7 [facility] Comment on above: Performed By: #### CBC #### [facility] [address] [place] [address] Dr. Santhosh Francois Eosinophils/100 WBC (Bld) 2.9 % Normal 0.9-7.0 [facility] Comment on above: Performed By: #### CBC #### [facility] [address] [place] [address] Dr. Santhosh Francois Erythrocyte distribution width (RBC) [Ratio] 14.9 % Normal 11.0-15.0 [facility] Comment on above: Performed By: #### CBC #### [facility] [address] [place] [address] Dr. Santhosh Francois Hematocrit (Bld) [Volume fraction] 39.1 % Critically low 42.0-54.0 [facility] Comment on above: Performed By: #### CBC #### [facility] [address] [address] [address] Santhosh Francois Hemoglobin (Bld) [Mass/Vol] 12.2 g/dL Critically low 14.0-18.0 [facility] Comment on above: Performed By: #### CBC #### [facility] [address] [place] [address] Dr. Santhosh Francois IG # 0.01 10e3/ul Normal 0.00-0.03 [facility] Comment on above: Performed By: #### CBC #### [facility] [address] [place] [address] Dr. Santhosh Francois IG % 0.2 % Normal 0.0-0.5 [facility] Comment on above: Performed By: #### CBC #### [facility] [address] [place] [address] Dr. Santhosh Francois LYMPH # 2.0 103/ul Normal 1.2-3.8 [facility] Comment on above: Performed By: #### CBC #### [facility] [address] [place] [address] Dr. Santhosh Francois Lymphocytes/100 WBC (Bld) 32.6 % Normal 20.5-60.0 [facility] Comment on above: Performed By: #### CBC #### [facility] [address] [place] [address] Dr. Santhosh Francois MANUAL DIFF REQ NO Normal [facility] Comment on above: Performed By: #### CBC #### [facility] [address] [place] [address] Dr. Santhosh Francois MCH (RBC) [Entitic mass] 29.9 pg Normal 25.9-34.0 [facility] Comment on above: Performed By: #### CBC #### [facility] [address] [place] [address] Dr. Santhosh Francois MCHC (RBC) [Mass/Vol] 31.2 g/dL Normal 29.9-35.2 [facility] Comment on above: Performed By: #### CBC #### [facility] [address] [place] [address] Dr. Santhosh Francois MCV (RBC) [Entitic vol] 95.8 fL Critically high 80.0-94.0 [facility] Comment on above: Performed By: #### CBC #### [facility] [address] [place] [address] Dr. Santhosh Francois MONO # 0.5 103/ul Normal 0.3-0.8 [facility] Comment on above: Performed By: #### CBC #### [facility] [address] [place] [address] Dr. Santhosh Francois Monocytes/100 WBC (Bld) 7.9 % Normal 1.7-12.0 [facility] Comment on above: Performed By: #### CBC #### [facility] [address] [address] [address] Santhosh Francois NEUT # 3.5 103/ul Normal 1.4-6.5 [facility] Comment on above: Performed By: #### CBC #### [facility] [address] [address] [address] Santhosh Francois Neutrophils/100 WBC (Bld) 55.9 % Normal 43.0-75.0 [facility] Comment on above: Performed By: #### CBC #### [facility] [address] [address] [address] Santhosh Francois Platelet mean volume (Bld) [Entitic vol] 10.6 fL Normal 9.5-13.5 [facility] Comment on above: Performed By: #### CBC #### [facility] [address] [place] [address] Dr. Santhosh Francois PLT 125 103/ul Critically low 150-450 [facility] Comment on above: Performed By: #### CBC #### [facility] [address] [place] [address] Dr. Santhosh Francois RBC 4.08 106/ul Critically low 4.70-6.10 [facility] Comment on above: Performed By: #### CBC #### [facility] [address] [place] [address] Dr. Santhosh Francois WBC 6.2 103/ul Normal 4.0-11.0 [facility] Comment on above: Performed By: #### CBC #### [facility] [address] [place] [address] ABD/PELVIS WO CONon [...] CASSIDY DILLON Date: 2022-04-30 18:05 Normal [facility] CULTURE URINEon 04-30-2022 CULTURE URINE Culture Observations : NO GROWTH. Normal [facility] Comment on above: Performed By: #### URCX #### [facility] [address] [place] [address] Dr. Santhosh Francois ER URINE PROFILEon 2 Bilirubin Ql (U) Unable to perform testing due to color interference. Abnormal NEGATIVE [facility] Comment on above: Performed By: #### ERUR UMICRO #### [facility] [address] [address] [address] Santhosh Francois Clarity (U) TURBID Abnormal CLEAR [facility] Comment on above: Performed By: #### ERUR, UMICRO #### [facility] [address] [address] [address] Santhosh Francois Color (U) RED Abnormal YELLOW [facility] Comment on above: Performed By: #### ERUR, UMICRO #### [facility] [address] [address] [address] Santhosh PALACIOS A micrscopic examina tion will be performed if indicated. Normal [facility] Comment on above: Performed By: #### ERUR, UMICRO #### [facility] [address] [place] [address] Dr. Santhosh Francois Glucose Ql (U) Unable to perform te sting due to color interference. Abnormal NEGATIVE [facility] Comment on above: Performed By: #### ERUR, UMICRO #### [facility] [address] [place] [address] Dr. Santhosh Francois Hemoglobin Ql (U) Unable to perform testing due to color interference. Abnormal NEGATIVE [facility] Comment on above: Performed By: #### CORRINAR UMICRO #### [facility] [address] [place] [address] Dr. Santhosh Francois Ketones Ql (U) Unable to perform te sting due to color interference. Abnormal NEGATIVE [facility] Comment on above: Performed By: #### SKYLAR UMICRO #### [facility] [address] [place] [address] Dr. Santhosh Francois LEUKOCYTES Unable to perform te sting due to color interference. Abnormal NEGATIVE [facility] Comment on above: Performed By: #### SKYLAR UMICRO #### [facility] [address] [place] [address] Dr. Santhosh Francois Nitrite Ql (U) Unable to perform te sting due to color interference. Abnormal NEGATIVE [facility] Comment on above: Performed By: #### SKYLAR UMICRO #### [facility] [address] [place] [address] Dr. Santhosh Francois pH (U) 6.0 [pH] Normal 5-9 [facility] Comment on above: Performed By: #### ERUR, UMICRO #### [facility] [address] [place] [address] Dr. Santhosh Francois SPEC GRAVITY 1.025 Normal 1.005-<=1.02 5 [facility] Comment on above: Performed By: #### ERUR, UMICRO #### [facility] [address] [address] [address] Santhosh Francois UA PROTEIN Unable to perform te sting due to color interference. Normal NEGATIVE/ TRACE [facility] Comment on above: Performed By: #### ERUR, UMICRO #### [facility] [address] [place] [address] Dr. Santhosh Francois UR MICRO IND INDICATED Normal [facility] Comment on above: Performed By: #### ERUR, UMICRO #### [facility] [address] [address] [address] Santhosh Francois UROBILINOGEN Unable to perform te sting due to color interference. Normal 0.2 - 1.0 [facility] Comment on above: Performed By: #### ERUR, UMICRO #### [facility] [address] [place] [address] Dr. Santhosh Francois PROF CHEM 8 (BAS METB)on Anion gap [Moles/Vol] 12.6 mmol/L Normal [facility] Comment on above: Performed By: #### BMP #### [facility] [address] [place] [address] Dr. Santhosh Francois Calcium [Mass/Vol] 7.7 mg/dL Critically low 8.5-10.1 [facility] Comment on above: Performed By: #### BMP #### [facility] [address] [place] [address] Dr. Santhosh Francois Chloride [Moles/Vol] 114 mmol/L Critically high 98-107 [facility] Comment on above: Performed By: #### BMP #### [facility] [address] [place] [address] Dr. Santhosh Francois CO2 [Moles/Vol] 21.1 mmol/L Normal 21.0-32.0 [facility] Comment on above: Performed By: #### BMP #### [facility] [address] [place] [address] Dr. Santhosh Francois Creatinine [Mass/Vol] 1.12 mg/dL Normal 0.70-1.30 [facility] Comment on above: Performed By: #### BMP #### [facility] [address] [address] [address] Santhosh Francois EGFR-AF CUBAN >60 Normal >=60 [facility] Comment on above: Performed By: #### BMP #### [facility] [address] [place] [address] Dr. Santhosh Francois EGFR-NON AF CUBAN >60 Normal >=60 [facility] Comment on above: Performed By: #### BMP #### [facility] [address] [place] [address] Dr. Santhosh Francois Glucose [Mass/Vol] 90 mg/dL Normal 74-106 [facility] Comment on above: Performed By: #### BMP #### [facility] [address] [place] [address] Dr. Santhosh Francois Potassium [Moles/Vol] 3.7 mmol/L Normal 3.5-5.1 [facility] Comment on above: Performed By: #### BMP #### [facility] [address] [place] [address] Dr. Santhosh Francois Sodium [Moles/Vol] 144 mmol/L Normal 136-145 [facility] Comment on above: Performed By: #### BMP #### [facility] [address] [place] [address] Dr. Santhosh Francois Urea nitrogen [Mass/Vol] 23.0 mg/dL Critically high 7.0-18.0 [facility] Comment on above: Performed By: #### BMP #### [facility] [address] [place] [address] Dr. Santhosh Francois Urea nitrogen/Creati nine [Mass ratio] 20.5 mg/mg Normal [facility] Comment on above: Performed By: #### BMP #### [facility] [address] [place] [address] Dr. Santhosh Francois URINE MICROSCOPIC ONLYon BACTERIA NONE SEEN Normal NONE SEEN [facility] Comment on above: Performed By: #### NICOL CHENG #### [facility] [address] [place] [address] Dr. Santhosh Francois Bacteria identified Cx Nom (U) NOT INDICATED Normal [facility] Comment on above: Performed By: #### ERUR, UMICRO #### [facility] [address] [place] [address] Dr. Santhosh Francois CAST NONE SEEN Normal NONE SEEN [facility] Comment on above: Performed By: #### ERUR, UMICRO #### [facility] [address] [place] [address] Dr. Santhosh Francois Crystals LM Nom (Urine sed) NONE SEEN Normal NONE SEEN [facility] Comment on above: Performed By: #### ERUR, UMICRO #### [facility] [address] [place] [address] Dr. Santhosh Francois Epithelial cells LM Ql (Urine sed) NONE SEEN Normal NONE SEEN /RARE [facility] Comment on above: Performed By: #### ERUR UMICRO #### [facility] [address] [place] [address] Dr. Santhosh Francois MUCOUS NONE SEEN Normal NONE SEEN [facility] Comment on above: Performed By: #### ERUR UMICRO #### [facility] [address] [place] [address] Dr. Santhosh Francois RBC (U) [#/Vol] /uL Abnormal 0-2 [facility] Comment on above: Performed By: #### ERUVandana UMICRO #### [facility] [address] [place] [address] Dr. Santhosh Francois WBC 10-20 Abnormal NONE SEEN [facility] Comment on above: Performed By: #### ERUR, UMICRO #### [facility] [address] [place] [address] Dr. Santhosh Francois CBC AUTO DIFFon 03-07-2022 BASO # 0.1 103/ul Normal 0.0-0.1 [facility] Comment on above: Performed By: #### CBC #### [facility] [address] [place] [address] Dr. Santhosh Francois Basophils/100 WBC (Bld) 0.8 % Normal 0.2-2.0 [facility] Comment on above: Performed By: #### CBC #### [facility] [address] [address] [address] Santhosh Francois EO # 0.1 103/ul Normal 0.0-0.7 [facility] Comment on above: Performed By: #### CBC #### [facility] [address] [place] [address] Dr. Santhosh Francois Eosinophils/100 WBC (Bld) 1.9 % Normal 0.9-7.0 [facility] Comment on above: Performed By: #### CBC #### [facility] [address] [place] [address] Dr. Santhosh Francois Erythrocyte distribution width (RBC) [Ratio] 16.4 % Critically high 11.0-15.0 [facility] Comment on above: Performed By: #### CBC #### [facility] [address] [place] [address] Dr. Santhosh Francois Hematocrit (Bld) [Volume fraction] 43.0 % Normal 42.0-54.0 [facility] Comment on above: Performed By: #### CBC #### [facility] [address] [place] [address] Dr. Santhosh Francois Hemoglobin (Bld) [Mass/Vol] 13.4 g/dL Critically low 14.0-18.0 [facility] Comment on above: Performed By: #### CBC #### [facility] [address] [place] [address] Dr. Santhosh Francois IG # 0.02 10e3/ul Normal 0.00-0.03 [facility] Comment on above: Performed By: #### CBC #### [facility] [address] [place] [address] Dr. Santhosh Francois IG % 0.3 % Normal 0.0-0.5 [facility] Comment on above: Performed By: #### CBC #### [facility] [address] [place] [address] Dr. Santhosh Francois LYMPH # 1.8 103/ul Normal 1.2-3.8 [facility] Comment on above: Performed By: #### CBC #### [facility] [address] [place] [address] Dr. Santhosh Francois Lymphocytes/100 WBC (Bld) 29.2 % Normal 20.5-60.0 [facility] Comment on above: Performed By: #### CBC #### [facility] [address] [address] [address] Santhosh Francois MANUAL DIFF REQ NO Normal [facility] Comment on above: Performed By: #### CBC #### [facility] [address] [place] [address] Dr. Santhosh Francois MCH (RBC) [Entitic mass] 30.5 pg Normal 25.9-34.0 [facility] Comment on above: Performed By: #### CBC #### [facility] [address] [place] [address] Dr. Santhosh Francois MCHC (RBC) [Mass/Vol] 31.2 g/dL Normal 29.9-35.2 [facility] Comment on above: Performed By: #### CBC #### [facility] [address] [place] [address] Dr. Santhosh Francois MCV (RBC) [Entitic vol] 97.9 fL Critically high 80.0-94.0 [facility] Comment on above: Performed By: #### CBC #### [facility] [address] [place] [address] Dr. Santhosh Francois MONO # 0.4 103/ul Normal 0.3-0.8 [facility] Comment on above: Performed By: #### CBC #### [facility] [address] [place] [address] Dr. Santhosh Francois Monocytes/100 WBC (Bld) 6.3 % Normal 1.7-12.0 [facility] Comment on above: Performed By: #### CBC #### [facility] [address] [place] [address] Dr. Santhosh Francois NEUT # 3.8 103/ul Normal 1.4-6.5 [facility] Comment on above: Performed By: #### CBC #### [facility] [address] [place] [address] Dr. Santhosh Francois Neutrophils/100 WBC (Bld) 61.5 % Normal 43.0-75.0 [facility] Comment on above: Performed By: #### CBC #### [facility] [address] [place] [address] Dr. Santhosh Francois Platelet mean volume (Bld) [Entitic vol] 10.5 fL Normal 9.5-13.5 [facility] Comment on above: Performed By: #### CBC #### [facility] [address] [place] [address] Dr. Santhosh Francois PLT 148 103/ul Critically low 150-450 [facility] Comment on above: Performed By: #### CBC #### [facility] [address] [place] [address] Dr. Santhosh Francois RBC 4.39 106/ul Critically low 4.70-6.10 [facility] Comment on above: Performed By: #### CBC #### [facility] [address] [place] [address] Dr. Santhosh Francois WBC 6.2 103/ul Normal 4.0-11.0 [facility] Comment on above: Performed By: #### CBC #### [facility] [address] [place] [address] Dr. Santhosh Francois IRONon 03-07-2022 Iron [Mass/Vol] 125.0 ug/dL Normal 65.0-175.0 [facility] Comment on above: Performed By: #### IRON #### [facility] [address] [place] [address] Dr. Santhosh Francois CBC AUTO DIFFon 12-03-2021 BASO # 0.0 103/ul Normal 0.0-0.1 [facility] Comment on above: Performed By: #### CBC #### [facility] [address] [place] [address] Dr. Santhosh Francois Basophils/100 WBC (Bld) 0.7 % Normal 0.2-2.0 [facility] Comment on above: Performed By: #### CBC #### [facility] [address] [place] [address] Dr. Santhosh Francois EO # 0.2 103/ul Normal 0.0-0.7 [facility] Comment on above: Performed By: #### CBC #### [facility] [address] [place] [address] Dr. Santhosh Francois Eosinophils/100 WBC (Bld) 3.1 % Normal 0.9-7.0 [facility] Comment on above: Performed By: #### CBC #### [facility] [address] [place] [address] Dr. Santhosh Francois Hematocrit (Bld) [Volume fraction] 40.4 % Critically low 42.0-54.0 [facility] Comment on above: Performed By: #### CBC #### [facility] [address] [place] [address] Dr. Santhosh Francois Hemoglobin (Bld) [Mass/Vol] 11.5 g/dL Critically low 14.0-18.0 [facility] Comment on above: Performed By: #### CBC #### [facility] [address] [place] [address] Dr. Santhosh Francois IG # 0.01 10e3/ul Normal 0.00-0.03 [facility] Comment on above: Performed By: #### CBC #### [facility] [address] [place] [address] Dr. Santhosh Francois IG % 0.2 % Normal 0.0-0.5 [facility] Comment on above: Performed By: #### CBC #### [facility] [address] [place] [address] Dr. Santhosh Francois LYMPH # 2.0 103/ul Normal 1.2-3.8 [facility] Comment on above: Performed By: #### CBC #### [facility] [address] [place] [address] Dr. Santhosh Francois Lymphocytes/100 WBC (Bld) 33.9 % Normal 20.5-60.0 [facility] Comment on above: Performed By: #### CBC #### [facility] [address] [place] [address] Dr. Santhosh Francois MANUAL DIFF REQ NO Normal [facility] Comment on above: Performed By: #### CBC #### [facility] [address] [address] [address] Santhosh Francois MCH (RBC) [Entitic mass] 24.1 pg Critically low 25.9-34.0 [facility] Comment on above: Performed By: #### CBC #### [facility] [address] [address] [address] Santhosh Francois MCHC (RBC) [Mass/Vol] 28.5 g/dL Critically low 29.9-35.2 [facility] Comment on above: Performed By: #### CBC #### [facility] [address] [place] [address] Dr. Santhosh Francois MCV (RBC) [Entitic vol] 84.5 fL Normal 80.0-94.0 [facility] Comment on above: Performed By: #### CBC #### [facility] [address] [place] [address] Dr. Santhosh Francois MONO # 0.4 103/ul Normal 0.3-0.8 [facility] Comment on above: Performed By: #### CBC #### [facility] [address] [place] [address] Dr. Santhosh Francois Monocytes/100 WBC (Bld) 7.7 % Normal 1.7-12.0 [facility] Comment on above: Performed By: #### CBC #### [facility] [address] [place] [address] Dr. Santhosh Francois NEUT # 3.1 103/ul Normal 1.4-6.5 [facility] Comment on above: Performed By: #### CBC #### [facility] [address] [place] [address] Dr. Santhosh Francois Neutrophils/100 WBC (Bld) 54.4 % Normal 43.0-75.0 [facility] Comment on above: Performed By: #### CBC #### [facility] [address] [place] [address] Dr. Santhosh Francois Platelet mean volume (Bld) [Entitic vol] 10.0 fL Normal 9.5-13.5 [facility] Comment on above: Performed By: #### CBC #### [facility] [address] [place], [place] [address] Dr. Santhosh Francois PLT 191 103/ul Normal 150-450 [facility] Comment on above: Performed By: #### CBC #### [facility] [address] [place], [place] [address] Dr. Santhosh Francois RBC 4.78 106/ul Normal 4.70-6.10 [facility] Comment on above: Performed By: #### CBC #### [facility] [address] [place], [place] [address] Dr. Santhosh Francois WBC 5.8 103/ul Normal 4.0-11.0 [facility] Comment on above: Performed By: #### CBC #### [facility] [address] [place], [place] [address] Dr. Santhosh Francois MR prostate wo/w conon 09-17 MR prostate wo/w con [facility] [address] MRI Report Signed Patient: Shabnam Burgess MR#: [id number] : 1955 Acct:[id number] Age/Sex: 65 / M ADM Date: 09/16/21 Loc: Room: Type: [facility] Attending Dr: Puneet Briggs MD Ordering [...] AM COT by: Tomy Garza MD Diplomate, [place] [employer] Report Completed: Sep 17, 2021 10:46:46 AM COT This transmission is proprietary, privileged and confidential. It is intended to be communication only for the use of the addressee; access to this message by anyone else is unaut Transcribed By: 09/17/21 1348 Dictated By: NON STAFF 09/17/21 1046 Signed By: 09/17/21 1349 [facility] Blood Urea Nitrogenon 2020 Urea nitrogen [Mass/Vol] 21 mg/dL Normal 9-23 [facility] Comment on above: Order Comment: STAT FOR MRI Performed By: #### C REAT, BUN #### [facility] [address] [place] [address] Creatinineon 09-03-2021 Creatinine [Mass/Vol] 1.01 mg/dL Normal 0.64-1.27 [facility] Comment on above: Order Comment: STAT FOR MRI Performed By: #### C RERICHAR, BUN #### [address] Creatinine Clr Calc Pharmacy 90.06 [facility] Comment on above: Order Comment: STAT FOR MRI Result Comment: PERF ORMED BY: [place] [address] PATHOLOGIST [employer] TONNY ZHOU M.D. Performed By: #### C JAM BUN #### [address] Estimated GFR ( Teresita > 60 [facility] Comment on above: Order Comment: STAT FOR MRI Result Comment: GFR estimated reference range: According to KDOQI guidelines, <60 ml/min/1.73m2 is sufficient to diagnose a patient with chronic kidney disease. Performed By: #### C REAT, BUN #### [address] Estimated GFR (Non- Am > 60 [facility] Comment on above: Order Comment: STAT FOR MRI Performed By: #### C REAT, BUN #### [address] Ironon 04-15-2019 Iron [Mass/Vol] 22 ug/dL Low 59-158 [facility] Comment on above: Performed By: #### CP #### [address] [place] [address] [employer] Supervisor: Frank Mercado MD #### B12, FE #### [facility] [address] [place] [address] [employer] Supervisor: Rainer Araujo MD Vitamin B12on 04-15-2019 Cobalamin (Vitamin B12) [Mass/Vol] 1062 pg/mL Normal 232-1245 [facility] Comment on above: Performed By: #### CP #### [address] [place] [address] [employer] Supervisor: Frank Mercado MD #### B12, FE #### [facility] [address] [place] [address] [employer] Supervisor: Rainer Araujo MD Comp Metabolic Profon 2018 (cont.) Normal [facility] Comment on above: Result Comment: Average GFR for 60-69 ye ars old: 85 mL/min/1.73sq m Chronic Kidney Disease: <60 mL/min/1.73sq m Kidney failure: <15 mL/min/1.73sq m eGFR calculated using average adult body mass. Additional eGFR calculator available at: http://www.[employer]/multiple_crcl_2012.htm Performed By: #### C P #### [address] [place] [address] [employer] Supervisor: Frank Mercado MD #### B12, FE #### [facility] [address] [place] [address] [employer] Supervisor: Rainer Araujo MD Albumin [Mass/Vol] 4.2 g/dL Normal 3.5-5.2 [facility] Comment on above: Performed By: #### CP #### [address] [place], [place] [id number] [employer] Supervisor: Frank Mercado MD #### B12, FE #### [facility] [address] [place] [address] [employer] Supervisor: Rainer Araujo MD Albumin/Globuli n [Mass ratio] 1.6 {ratio} Normal 1.0-2.5 [facility] Comment on above: Performed By: #### CP #### [facility] [place] [facility] [address] [place] [address] [employer] Supervisor: Frank Mercado MD #### B12, FE #### [facility] [address] [place] [address] [employer] Supervisor: Rainer Araujo MD Alkaline Phos 120 U/L Normal 40-129 [facility] Comment on above: Performed By: #### CP #### [facility] [place] [facility] [address] [place] [address] [place] [address] [employer] Supervisor: Frank Mercado MD #### B12, FE #### [address] [place] [address] [employer] Supervisor: Rainer Araujo MD ALT [Catalytic activity/Vol] 29 U/L Normal 5-41 [facility] Comment on above: Performed By: #### CP #### [facility] [place] [facility] [address] [place] [address] [place] [address] [employer] Supervisor: Frank Mercado MD #### B12, FE #### [address] [address] [employer] Supervisor: Rainer Araujo MD Anion gap [Moles/Vol] 10 mmol/L Normal [facility] Comment on above: Performed By: #### CP #### [facility] [place] [facility] [address] [place] [address] [employer] Supervisor: Frank Mercado MD #### B12, FE #### [facility] [address] [place] [address] [employer] Supervisor: Rainer Araujo MD AST [Catalytic activity/Vol] 26 U/L Normal <40 [facility] Comment on above: Performed By: #### CP #### [facility] [place] [facility] [address] [place] [address] [employer] Supervisor: Frank Mercado MD #### B12, FE #### [address] [place] [address] [employer] Supervisor: Rainer Araujo MD Bilirubin Ql (U) 0.72 mg/dL Normal 0.3-1.2 [facility] Comment on above: Performed By: #### CP #### [facility] [place] [facility] [address] [place] [address] [employer] Supervisor: Frank Mercado MD #### B12, FE #### [address] [address] [employer] Supervisor: Rainer Araujo MD BUN/CRE Ratio 24 High 9-20 [facility] Comment on above: Performed By: #### CP #### [facility] [place] [facility] [address] [place] [address] [place] [address] [employer] Supervisor: Frank Mercado MD #### B12, FE #### [address] [address] [employer] Supervisor: Rainer Araujo MD Calcium [Mass/Vol] 8.2 mg/dL Low 8.6-10.4 [facility] Comment on above: Performed By: #### CP #### [facility] [place] [facility] [address] [place] [address] [place] [address] [employer] Supervisor: Frank Mercado MD #### B12, FE #### [address] [address] [employer] Supervisor: Rainer Araujo MD Chloride [Moles/Vol] 115 mmol/L High 98-107 [facility] Comment on above: Performed By: #### CP #### [facility] [place] [facility] [address] [place], [place] [address] [employer] Supervisor: Frank Mercado MD #### B12, FE #### [facility] [address] [place] [address] [employer] Supervisor: Rainer Araujo MD CO2 [Moles/Vol] 17 mmol/L Low 20-31 [facility] Comment on above: Performed By: #### CP #### [facility] [place] [facility] [address] [place], [place] [id number] [employer] Supervisor: Frank Mercado MD #### B12, FE #### [address] [address] [employer] Supervisor: Rainer Araujo MD Creatinine [Mass/Vol] 1.11 mg/dL Normal 0.70-1.20 [facility] Comment on above: Performed By: #### CP #### [facility] [place] [facility] [address] [place] [address] [address] [place], [place] [id number] [employer] Supervisor: Frank Mercado MD #### B12, FE #### [address] [address] [employer] Supervisor: Rainer Araujo MD GFR, Amer >60 Normal >60 [facility] Comment on above: Performed By: #### CP #### [facility] [place] [facility] [address] [place] [address] [place] [address] [employer] Supervisor: Frank Mercado MD #### B12, FE #### [facility] [address] [place] [address] [employer] Supervisor: Rainer Araujo MD GFR,non Amer >60 Normal >60 [facility] Comment on above: Performed By: #### CP #### [facility] [place] [facility] [address] [place], [place] [id number] [employer] Supervisor: Frank Mercado MD #### B12, FE #### [facility] [address] [place] [address] [employer] Supervisor: Rainer Araujo MD Glucose [Mass/Vol] 103 mg/dL High 70-99 [facility] Comment on above: Performed By: #### CP #### [facility] [place] [facility] [address] [place], [place] [id number] [employer] Supervisor: Frank Mercado MD #### B12, FE #### [address] [address] [employer] Supervisor: Rainer Araujo MD Potassium [Moles/Vol] 4.1 mmol/L Normal 3.7-5.3 [facility] Comment on above: Performed By: #### CP #### [facility] [place] [facility] [address] [place], [place] [address] [employer] Supervisor: Frank Mercado MD #### B12, FE #### [address] [address] [employer] Supervisor: Rainer Araujo MD Protein [Mass/Vol] 6.8 g/dL Normal 6.4-8.3 [facility] Comment on above: Performed By: #### CP #### [facility] [place] [facility] [address] [place] [address] [place] [place], [place] [id number] [employer] Supervisor: Frank Mercado MD #### B12, FE #### [address] [address] [employer] Supervisor: Rainer Araujo MD Sodium [Moles/Vol] 142 mmol/L Normal 135-144 [facility] Comment on above: Performed By: #### CP #### [facility] [place] [facility] [address] [place] [address] [employer] Supervisor: Frank Mercado MD #### B12, FE #### [address] [address] [employer] Supervisor: Rainer Araujo MD Staging: Normal [facility] Comment on above: Result Comment: Stage 1: Some kidney dam age normal GFR Stage 2: Mild kidney damage GFR 60-89 Stage 3: Moderate kidney damage GFR 30-59 Stage 4: Severe kidney damage GFR 15-29 Stage 5: Severe kidney damage GFR <15 ESRD - chronic treatment by dialysis or transplant Performed By: #### C P #### [facility] [place] [facility] [address] [place] [address] [employer] Supervisor: Frank Mercado MD #### B12, FE #### [facility] [address] [place], [place] [id number] [employer] Supervisor: Rainer Araujo MD Urea nitrogen [Mass/Vol] 27 mg/dL High 8- [facility] Comment on above: Performed By: #### CP #### [facility] [place] [facility] [address] [place] [address] [employer] Supervisor: Frank Mercado MD #### B12, FE #### [facility] [address] [place], [place] [id number] [employer] Supervisor: Rainer Araujo MD Social History Date Type Detail Facility Start: 11-04-2023 Alcohol intake Ex-drinker (finding) [facility] Start: 11-04-2023 Alcohol Comment caffine: 3 cups lucretia y [facility] Start: 10-26-2023 End: 11-04-2023 Sex Assigned At Male General Surgery [facility] Start: 10-26-2023 End: 11-04-2023 History of Social function [facility] Start: 10-19-2023 Tobacco smoking status Light t obacco smoker (finding) [facility] Start: 12-06-2021 End: 10-26-2023 Tobacco smoking status Never smoked tobacco (finding) [facility] [place] Start: 1955 Sex Assigned At Not on file N [facility] Tobacco smoking status Never Gener al [facility] [place] Vital Signs Date Time Vital Sign Value Performing Clinician Facility 11-04-2023 15:54-0500 Body height 177.8 cm Park Yoder NP Work Phone: [facility] 11-04-2023 15:54-0500 Body mass index (BMI) [Ratio] 34.47 kg/m2 Parkvero Simpsonashliez DIRECTOR OF GOLF Work Phone: [facility] 11-04-2023 15:54-0500 Body temperature 97.11 [degF] Park Simpsonashliez DIRECTOR OF GOLF Work Phone: [facility] 11-04-2023 15:54-0500 Body weight 108.95 kg Parkvero Simpsongalindoholz DIRECTOR OF GOLF Work Phone: [facility] 11-04-2023 15:54-0500 Diastolic blood pressure 78 mm[Hg] Park Tatianahholz DIRECTOR OF GOLF Work Phone: [facility] 11-04-2023 15:54-0500 Heart rate 66 /min Park Tatianagalindoholz DIRECTOR OF GOLF Work Phone: [facility] 11-04-2023 15:54-0500 Respiratory rate 18 /min Parkvero Simpsongalindoholz DIRECTOR OF GOLF Work Phone: [facility] 11-04-2023 15:54-0500 SaO2% (BldA) [Mass fraction] 97 % Park Tatianahholz DIRECTOR OF GOLF Work Phone: [facility] 11-04-2023 15:54-0500 Systolic blood pressure 118 mm[Hg] Park Tatianagalindoholz DIRECTOR OF GOLF Work Phone: [facility] 10-19-2023 15:01-0500 Blood Pressure Location Puneet BRIGGS [facility] 10-19-2023 15:01-0500 Diastolic blood pressure 60 mm[Hg] Puneet BRIGGS [facility] 10-19-2023 15:01-0500 Heart rate 64 /min Puneet BRIGGS [facility] 10-19-2023 15:01-0500 Respiratory rate 16 /min Puneet BRIGGS [facility] 10-19-2023 15:01-0500 Systolic blood pressure 109 mm[Hg] Puneet BRIGGS [facility] 04-13-2023 15:59-0400 Blood Pressure Location Puneet BRIGGS [facility] 04-13-2023 15:59-0400 Diastolic blood pressure 80 mm[Hg] Puneet BRIGGS [facility] 04-13-2023 15:59-0400 Heart rate 68 /min Puneet BRIGGS [facility] 04-13-2023 15:59-0400 Respiratory rate 16 /min Puneet BRIGGS [facility] 04-13-2023 15:59-0400 Systolic blood pressure 130 mm[Hg] Puneet BRIGGS [facility] 11-04-2022 14:37-0500 Blood Pressure Location Puneet BRIGGS [facility] 11-04-2022 14:37-0500 Diastolic blood pressure 69 mm[Hg] Puneet BRIGGS [facility] 11-04-2022 14:37-0500 Heart rate 68 /min Puneet BRIGGS [facility] 11-04-2022 14:37-0500 Systolic blood pressure 118 mm[Hg] Puneet BRIGGS [facility] 05-19-2022 15:59-0400 Blood Pressure Location Puneet BRIGGS [facility] [employer] 05-19-2022 15:59-0400 Diastolic blood pressure 66 mm[Hg] Puneet BRIGGS [facility] [employer] 05-19-2022 15:59-0400 Heart rate 59 /min Puneet BRIGGS [facility] [employer] 05-19-2022 15:59-0400 Respiratory rate 16 /min Puneet BRIGGS [facility] [employer] 05-19-2022 15:59-0400 Systolic blood pressure 117 mm[Hg] Puneet [employer] [facility] [employer] Functional Status Date Assessment Result Facility 10-19-2023 Functional Status Yes [facility] 04-13-2023 Functional Status N/A [facility] 11-04-2022 Functional Status N/A [facility] 05-19-2022 Functional Status N/A [facility] [employer] Clinical Notes 12-18-2021 to 11-04-2023 Park Yoder, CHRISTOPHE - 11/04/2023 4:06 PM Nia Yoder, DIRECTOR OF GOLF - 11/04/2023 4:06 PM Nia Yoder, CHRISTOPHE - 11/04/2023 4:06 PM Nia Yoder, DIRECTOR OF GOLF - 11/04/2023 4:05 PM EST Note Date & Type Note Facility 11-04-2023 History of Present illness Narrative Associated Problem(s): HTN (hypertension) (CMS/[facility]) Stable cont with cardiology Associated Problem(s): Chronic [...] cont current meds documented in this encounter [facility] 10-19-2023 Hospital Discharge instructions Patient Education [...] urethra. Follow these instructions at home: Take xjxh-vyp-woxdkqy and prescription medicines only as told by [...] provider. Document Revised: 04/02/2022 Document Reviewed: 04/02/2022 [employer] Patient Education 2022 [employer]. Follow Up Care 04/13/2023 16:26:55 With:ANAHI MCDONALD, Puneet Ross, URL Address: [facility] [address] , [place] [address]- When:Within 1 Year(s) Comments:w/FESTUS [facility] Hospital Discharge instructions Patient Education 04/13/2023 [...] stress of having cancer. General instructions Take uwht-vcc-nrizupc and prescription medicines only as told by your health care provider. If you have to go to the hospital, notify your cancer specialist (oncologist). Keep all follow-up visits. This is important. Where to find more information [place] [employer]: www.cancer.org [place] [employer] Oncology: www.cancer.net National Cancer [place]: www.cancer.gov Contact a health care provider if: [...] provider. Document Revised: 12/11/2021 Document Reviewed: 12/11/2021 [employer] Patient Education 2022 [employer]. Follow Up Care 03/16/2023 14:05:40 With:ANAHI MCDONALD, Puneet Ross, URL Address: [facility] [address] [place] [phone] When: Unknown Comments:6 mos w/ PSA and PVR [facility] 11-03-2022 Hospital Discharge instructions Patient Education 11/03/2022 [...] urethra. Follow these instructions at home: Take hdyd-ekq-guhrjgc and prescription medicines only as told by [...] 09/14/2006 Document Revised: 08/09/2019 Document Reviewed: 10/19/2017 [employer] Patient Education 2020 [employer] Follow Up Care 10/13/2022 13:53:44 With:ANAHI MCDONALD, Puneet Ross, URL Address: [facility] [address] , [place] [address]- When: Unknown [facility] 05-19-2022 Hospital Discharge instructions Patient Education 05/19/2022 16:24:13 Prostatitis, Whii-rz-Suli Prostatitis Prostatitis is swelling of the prostate gland. The prostate helps to make semen. It is below a man's bladder, in front of the rectum. There are different types of prostatitis. Follow these instructions at home: Take uiks-dkk-slqwrdw and prescription medicines only as told by [...] 03/15/2013 Document Revised: 08/27/2018 Document Reviewed: 06/04/2017 [employer] Patient Education 2020 [employer]. 05/19/2022 16:24:11 Calorie Counting for Weight Loss [...] 09/14/2006 Document Revised: 06/03/2019 Document Reviewed: 08/14/2017 [employer] Patient Education [employer]. Follow Up Care 11/22/2021 12:25:13 With:ANAHI MCDONALD, Puneet Ross, URL Address: [address] [place], [place] [address] Business (1) When:Within 6 Month(s) Comments:w/PSA [facility] 12-18-2021 Note OPERATIVE NOTE PREOPERATIVE DIAGNOSIS: Iron [...] to the poor prep. CC: Park Yoder, BUSINESS REPRESENTATIVE [facility] Signed and Approved by: DR ARY ARTEAGA . 12/20/2021 11:57:00 [facility] Evaluation + Plan note Future Appointments Appointment Date:05/19/2022 03:15:00 PM Scheduled Provider:Puneet BRIGGS MD Location:[facility] Appointment Type:URO Office Visit General [facility] [place] Evaluation + Plan note Future Appointments Appointment Date:11/24/2022 03:30:00 PM Scheduled Provider:Puneet BRIGGS MD Location:[facility] Appointment Type:URO Office Visit Diagnostic Tests PendingPSA Total 05/19/22 [facility] Evaluation + Plan note Future Appointments Appointment Date:03/18/2023 08:30:00 AM Scheduled Provider:Puneet BRIGGS MD Location:[facility] Appointment Type:URO Office Visit Diagnostic Tests PendingUroVysion Fish and Urine Cyto ([facility]) 11/04/22 [facility] Evaluation + Plan note Future Appointments Appointment Date:03/23/2023 03:00:00 PM Scheduled Provider:[facility]GS [facility] Office Visit [facility] Evaluation + Plan note Future Appointments Appointment Date:10/19/2023 02:45:00 PM Scheduled Provider:Puneet BIRGGS MD Location:[facility] Appointment Type:URO Office Visit Diagnostic Tests PendingPSA Total 04/13/23 [facility] Evaluation + Plan note Future Appointments Appointment Date:10/24/2024 03:00:00 PM Scheduled Provider:Puneet BRIGGS MD Location:[facility] Appointment Type:URO Office Visit Diagnostic Tests PendingPSA Total 10/19/23 [facility] Evaluation note Diagnosis Iron deficiency anemia following bariatric surgery- Primary BMI 37.0-37.9, adult Nonischemic cardiomyopathy (CMS/HCC) Other primary cardiomyopathies Primary hypertension (CMS/HCC) Unspecified essential hypertension Chronic systolic heart failure (CMS/HCC) Chronic systolic heart failure H/O bariatric surgery Mixed hyperlipidemia (CMS/HCC) Mixed hyperlipidemia [facility] N[facility] No data available for this section General Surgery [facility] Discharge instructions No data available for this section General Surgery [place] note No data available for this section [facility] Summary Purpose Family History No Family History [...] section and content) DATE CREATED AUTHOR 03/18/2018 [facility] DATE CREATED AUTHOR AUTHOR'S ORGANIZ ATION 04/15/2019 [facility] DATE CREATED AUTHOR AUTHOR'S ORGANIZ ATION 12/16/2021 [facility] DATE CREATED AUTHOR AUTHOR'S ORGANIZ ATION 11/28/2022 [facility] DATE CREATED AUTHOR AUTHOR'S ORGANIZ ATION 04/14/[address] [facility] DATE CREATED AUTHOR AUTHOR'S ORGANIZ ATION 03/31/2024 [facility] dical Specialists EPIC Care Team (unrecognized sect ion and content) Director Of Enterprise Architecture Relationship Specialty Start Date End Date Kenny Hartley MD [address] [place] [address] PCP - General Family Medicine 10/26/23 Director Of Enterprise Architecture Relationship Specialty Start Date End Date Kenny Hartley MD [address] [place] [address] PCP - General Family Medicine 10/26/23 FOR [...] BE BASED ON THE PRIMARY CLINICAL RECORDS. [employer] [facility]. provides no warranty or guarantee of the accuracy or completeness of information in this document.
== END 2024-04-02 08:23 | disposition home or self-care (01) ==
LOC: US 08:22
PROVIDERS: PCP Nurse Practitioner; Visit Provider Nurse Practitioner
DX: R79.89 Other specified abnormal findings of blood chemistry (principal); R16.0 Hepatomegaly, not elsewhere classified; Z90.49 Acquired absence of other specified parts of digestive tract; N28.1 Cyst of kidney, acquired
CPT/HCPCS: 76705

== ENCOUNTER 2024-04-02 08:59 | Outpatient (OUT) | payer BC, SELFPAY ==
--- OUTSIDE RECORDS SUMMARY | 2024-04-02 09:02 | XMS_ITS | CCD ---
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 Referring Unavailable AICHHOLZ, PARK J. Primary Care Unavailable AICHSILVIO, PARK J Primary Care Physician [phone] ANAHI Jackson, DR NGUYỄN Consulting Unavailable BRIGGS ., DR NGUYỄN Admitting Unavailable BRIGGS ., DR NGUYỄN Attending Unavailable AICHHOLZ, GERMAN TUTOR PARK Primary Care Unavailable MISC, DR AYERS Consulting Unavailable MISC, DR AYERS Admitting Unavailable MISC, DR AYERS Attending Unavailable AICHHOLZ, GERMAN TUTOR PARK Primary Care Unavailable AICHHOLZ, GERMAN TUTOR PARK Consulting Unavailable AICHHOLZ, GERMAN TUTOR PARK Primary Care Unavailable BRIGGS ., DR NGUYỄN Admitting Unavailable BRIGGS ., DR NGUYỄN Attending Unavailable ZIEBER, DR CASSIDY Ross Consulting Unavailable ELI DALAL Attending Unavailable ELI DALAL Admitting Unavailable AICHHOLZ, GERMAN TUTOR PARK Primary Care Unavailable JENNIFER DRAKE Consulting Unavailable DEANNE OTOOLE Consulting UnavailISACC Sidhu Admitting Unavailable ISACC BEJARANO Attending Unavailable AICHHOLZ, GERMAN TUTOR PARK Primary Care Unavailable ISACC BEJARANO Consulting Unavailable AICHHOLZ, GERMAN TUTOR PARK Primary Care Unavailable NILL ., DR MCALLISTER Admitting Unavailable NILL ., DR MCALLISTER Attending Unavailable NILL ., DR MCALLISTER Consulting Unavailable AICHHOLZ, GERMAN TUTOR PARK Primary Care Unavailable NILL ., DR MCALLISTER Admitting Unavailable NILL ., DR MCALLISTER Attending Unavailable GRACE LEO Consulting Unavailable JUAN ORO Consulting Unavailable AICHHOLZ, GERMAN TUTOR PARK Consulting Unavailable AICHHOLZ, GERMAN TUTOR PARK Primary Care Unavailable AICHHOLZ, GERMAN TUTOR PARK Admitting Unavailable AICHHOLZ, GERMAN TUTOR PARK Attending Unavailable AICHSILVIO, GERMAN TUTOR PARK Consulting Unavailable TATIANAHHOLMichelle, GERMAN TUTOR PARK Admitting Unavailable TATIANAHHOLMichelle, GERMAN TUTOR PARK Attending Unavailable PARESH, LILIANA MARCOSA Primary Care Unavailable Puneet BRIGGS Attending Unavailable ANAHI, Puneet Ross Attending Unavailable ANAHI, Puneet Ross Attending Unavailable ANAHI, Puneet Ross Attending Unavailable ANAHI, Puneet Ross Attending Unavailable ANAHI, Puneet Ross Attending Unavailable Kenny Hartley MD Primary Care Provider PARK YODER Attending Unavailable PARESH, PARK Attending Unavailable PARESH, PARK Attending Unavailable Medications [...] procedure, # 2 tab(s), Refills(s) 0, Pharmacy: [id number], 176, cm, 05/19/22 16:10:00 EDT, [...] 05-19-2022 10-24-2019 Chronic Other aftercare (1 source) [facility] (current) use of aspirin; 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 This is called the [place] score and the total score can range from 6?10, indicating how likely it is that the cancer will spread (metastasize) to other parts of the body. The higher the score, the greater the likelihood that the cancer will spread. ? Naples 6 or lower: This indicates that the [...] external be (more content not included)... Normal [facility] Reminderson 04-13-2023 Reminders - From: Shala Soares To: JAYASHREE Briggs; Sent: 04/13/2023 16:27:00 EDT Show up: 09/13/2023 15:26:00 EST Subject: PSA Reminder Message Please Remember to:_get PSA (at [facility]) prior to next appt. Normal [facility] Urology Office/Clinic Noteon 04-13-2023 Urology Office/Clinic Note [...] With When Contact Information Puneet BRIGGS MD, L [facility] [address], [place] [phone] Additional Instructions: 6 mos w/ PSA and [...] of prostat (more content not included)... Normal [facility] Comment on above: Result Comment: Electronically Signed By : Puneet BRIGGS MD\.br\Date and Time Signed: 04/13/23 16:26 EDT\.br\Electronically Co-Signed By: Shala Soares\.yonathan\Date and Time Co-Signed: 04/13/23 16:25 EDT Lab Reportson 11-30-2022 Lab Reports [id number]#[id number]:127 Normal [facility] UroVysion Fish and Urine Cyt o ([facility])on 11-13-2022 UVFISH & UC Diagnosis Info Invalid Interpretation Code [facility] Comment on above: Result Comment: [...] 170 Hematuria: Gross Description Site ID:A color Rolette fixative Alcohol Received 80 mls of clear orange fluid with the patient's name and, Urine on the vial. Electronically signed by : on: 11/13/2022 08:34:30 Performed By: #### 1 [id number] ####[id number] [place] [address] Consent for Procedure/Surger yon 11-05-2022 Consent for Procedure/Surge ry [id number]#1.00CD:127 Normal [facility] UroVysion Fish and Urine Cyt o ([facility])on 11-04-2022 UVUC Method of Extraction Bladder Urine Normal [facility] Comment on above: Performed By: #### [id number] ####[facility] [address] [place] [address] [facility] Number of Jars 1 Invalid Interpretation Code [facility] Comment on above: Performed By: #### [id number] ####[facility] [address] [place] [place] [address] [facility] Specimen Urine Normal [facility] Comment on above: Performed By: #### [id number] ####[facility] [address] [place] [facility] [address] [facility] Type of Service Global Normal [facility] Comment on above: Performed By: #### [id number] ####[facility] [address] [place] [address] Urology Office/Clinic Noteon 11-04-2022 Urology Office/Clinic Note [...] blood and clots on 09/12/22. Went to [facility] ER, they did urine cx. Was [...] URL [facility] [address], [place] [address]- Additional Instructions: f/u 4 mos Patient Education [...] of lower (more content not included)... Normal [facility] Comment on above: Result Comment: [...] Follow these instructions at home: ? Take lpcf-cdz-valpvpi and prescription medicines only as told by [...] You d (more content not included)... Normal [facility] Pre-Certification Formon Pre-Certificati on Form [id number]#[id number]:127 Normal [facility] ER URINE PROFILEon 2 Bilirubin Ql (U) Negative Normal NEGATIVE [facility] Comment on above: Performed By: #### SKYLAR CAMARENA #### [facility] [address] [place] [address] Dr. Santhosh Francois Clarity (U) CLEAR Normal CLEAR [facility] Comment on above: Performed By: #### NICOL, ERUR #### [facility] [address] [address] [address] Santhosh Francois Color (U) LT. YELLOW Normal YELLOW [facility] Comment on above: Performed By: #### NICOL, ERUR #### [facility] [address] [place] [address] Dr. Santhosh Francois ERUAHD A micrscopic examina tion will be performed if indicated. Normal [facility] Comment on above: Performed By: #### NICOL, ERUR #### [facility] [address] [place] [address] Dr. Santhosh Francois Glucose Ql (U) Negative Normal NEGATIVE [facility] Comment on above: Performed By: #### NICOL, ERUR #### [facility] [address] [place] [address] Dr. Santhosh Francois Hemoglobin Ql (U) LARGE Abnormal NEGATIVE [facility] Comment on above: Performed By: #### NICOL ERUR #### [facility] [address] [place] [address] Dr. Santhosh Francois Ketones Ql (U) Negative Normal NEGATIVE [facility] Comment on above: Performed By: #### NICOL, ERUR #### [facility] [address] [place] [address] Dr. Santhosh Francois LEUKOCYTES Negative Normal NEGATIVE [facility] Comment on above: Performed By: #### NICOL ERUR #### [facility] [address] [place] [address] Dr. Satnhosh Francois Nitrite Ql (U) Negative Normal NEGATIVE [facility] Comment on above: Performed By: #### NICOL ERUR #### [facility] [address] [place] [address] Dr. Santhosh Francois pH (U) 5.0 [pH] Normal 5-9 [facility] Comment on above: Performed By: #### NICOL ERUR #### [facility] [address] [place] [address] Dr. Santhosh Francois SPEC GRAVITY 1.010 Normal 1.005-<=1.02 5 [facility] Comment on above: Performed By: #### NICOL ERUR #### [facility] [address] [place] [address] Dr. Santhosh Francois UA PROTEIN TRACE Normal NEGATIVE/ TRACE [facility] Comment on above: Performed By: #### NICOL ERUR #### [facility] [address] [place] [address] Dr. Santhosh Francois UR MICRO IND INDICATED Normal [facility] Comment on above: Performed By: #### NICOL ERUR #### [facility] [address] [place] [address] Dr. Santhosh Francois Urobilinogen Qn (U) 0.2 {Malini'U}/dL Normal 0.2 - 1.0 [facility] Comment on above: Performed By: #### NICOL ERUR #### [facility] [address] [place] [address] Dr. Santhosh Francois URINE MICROSCOPIC ONLYon BACTERIA NONE SEEN Normal NONE SEEN [facility] Comment on above: Performed By: #### CBC #### [facility] [address] [place] [address] Dr. Santhosh Francois Bacteria identified Cx Nom (U) NOT INDICATED Normal [facility] Comment on above: Performed By: #### CBC #### [facility] [address] [place] [address] Dr. Santhosh Francois CAST NONE SEEN Normal NONE SEEN [facility] Comment on above: Performed By: #### CBC #### [facility] [address] [place] [address] Dr. Santhosh Francois Crystals LM Nom (Urine sed) NONE SEEN Normal NONE SEEN [facility] Comment on above: Performed By: #### CBC #### [facility] [address] [place] [address] Dr. Santhosh Francois Epithelial cells LM Ql (Urine sed) RARE Normal NONE SEEN /RARE [facility] Comment on above: Performed By: #### CBC #### [facility] [address] [address] [address] Santhosh Francois MUCOUS NONE SEEN Normal NONE SEEN [facility] Comment on above: Performed By: #### CBC #### [facility] [address] [address] [address] Santhosh Francois RBC 10-20 Abnormal 0-2 [facility] Comment on above: Performed By: #### CBC #### [facility] [address] [place] [address] Dr. Santhosh Francois WBC NONE SEEN Normal NONE SEEN [facility] Comment on above: Performed By: #### CBC #### [facility] [address] [place] [address] Dr. Santhosh Francois Lab Reportson 05-20-2022 Lab Reports [id number]#[id number]:127 Normal [facility] Ambulatory Visit Summaryon 0 05-19-2022 Ambulatory Visit Summary SHABNAM BURGESS :1955 Visit Date:05/19/2022 Ambulatory Visit Instructions Your Diagnosis Prostate cancer Chronic prostatitis BPH with urinary obstruction Kidney stones BMI 36.0-36.9,adult Other obstructive and reflux uropathy Tests Performed Urnls Dip Stick Auto w/o Microscopy POC 23116 Your Care Team Attending Physician - ANAHI [...] MCDONALD, Puneet Ross Where: [facility] Patient Educationon 05-19-20 Patient Education Infectious Disease Prostatitis Prostatitis is swelling of the prostate gland. The prostate helps to make semen. It is below a man's bladder, in front of the rectum. There are different types of prostatitis. Follow these instructions at home: ? Take ksjg-hlw-wjrhyvy and prescription medicines only as told by [...] Reviewed: 06/04/2017 Elsevier Patient Education ? 2020 [employer] Nutrition Calorie Counting for Weight Loss [...] not leave (more content not included)... Normal [facility] Urology Office/Clinic Noteon 05-19-2022 Urology [...] MCDONALD, Puneet Ross, DELANEY In 6 months [facility] [place] [address] [facility] (1) Additional Instructions: w/PSA Patient Education Prostatitis, Gqze-ni-Vdtk Calorie Counting for Weight Loss Carey Willett [...] Wine, Daily, (more content not included)... Normal [facility] Comment on above: Result Comment: Electronically Signed By : ANAHI MCDONALD, Puneet Ross\.yonathan\Date and Time Signed: 05/19/22 16:36 EDT\.br\Electronically Co-Signed By: Carey Gonzalez.br\Date and Time Co-Signed: 05/19/22 16:34 EDT LIPID PROFILEon 05-16-2022 CHOL-HDL RATIO NORM SEE BELOW Normal [facility] Comment on above: Result Comment: 3.3 - 4.4 LOW RISK 4.4 - 7.1 AVERAGE RISK 7.1 - 11.0 MODERATE RISK >11.0 HIGH RISK Performed By: #### C BC #### [facility] [address] [address] [address] Santhosh Francois Cholesterol [Mass/Vol] 58 mg/dL Normal <=200 [facility] Comment on above: Performed By: #### CBC #### [facility] [address] [address] [address] Santhosh Francois Cholesterol in HDL [Mass/Vol] 38 mg/dL Critically low 40-60 [facility] Comment on above: Performed By: #### CBC #### [facility] [address] [address] [address] Santhosh Francois Cholesterol in LDL [Mass/Vol] 14.0 mg/dL Normal [facility] Comment on above: Performed By: #### CBC #### [facility] [address] [address] [address] Santhosh Francois Cholesterol.tot al/Cholesterol in HDL [Mass ratio] 1.5 {ratio} Normal [facility] Comment on above: Performed By: #### CBC #### [facility] [address] [address] [address] Santhosh Francois HDL NORMAL > or = 60 mg/dl - LO W CARDIOVASCULAR RISK <40 mg/dl - HIGH CARDIOVASCULAR RISK Normal [facility] Comment on above: Performed By: #### CBC #### [facility] [address] [address] [address] Santhosh Francois LDL CALC NORMAL SEE BELOW Normal [facility] Comment on above: Result Comment: <100 mg/dl OPTIMAL 100 - 129 mg/dl NEAR OR ABOVE OPTIMAL 130 - 159 mg/dl BORDERLINE HIGH 160 - 189 mg/dl HIGH >190 mg/dl VERY HIGH Performed By: #### C BC #### [facility] [address] [place] [address] Dr. Santhosh Francois Triglyceride [Mass/Vol] 30 mg/dL Normal <=150 [facility] Comment on above: Performed By: #### CBC #### [facility] [address] [place] [address] Dr. Santhosh Francois VLDL CALC 6.0 mg/dL Normal [facility] Comment on above: Performed By: #### CBC #### [facility] [address] [place] [address] Dr. Santhosh Francois PROF 14(COMP METB)on 022 Albumin [Mass/Vol] 3.6 g/dL Normal 3.4-5.0 [facility] Comment on above: Performed By: #### CBC #### [facility] [address] [place] [address] Dr. Santhosh Francois Albumin/Globuli n [Mass ratio] 1.1 {ratio} Normal [facility] Comment on above: Performed By: #### CBC #### [facility] [address] [place] [address] Dr. Santhosh Francois ALP [Catalytic activity/Vol] 145 U/L Critically high 46-116 [facility] Comment on above: Performed By: #### CBC #### [facility] [address] [place] [address] Dr. Santhosh Francois ALT [Catalytic activity/Vol] 102 U/L Critically high 16-63 [facility] Comment on above: Performed By: #### CBC #### [facility] [address] [place] [address] Dr. Santhosh Francois Anion gap [Moles/Vol] 12.7 mmol/L Normal [facility] Comment on above: Performed By: #### CBC #### [facility] [address] [place] [address] Dr. Santhosh Francois AST [Catalytic activity/Vol] 68 U/L Critically high 15-37 [facility] Comment on above: Performed By: #### CBC #### [facility] [address] [place] [address] Dr. Santhosh Francois Bilirubin [Mass/Vol] 1.0 mg/dL Normal 0.2-1.0 [facility] Comment on above: Performed By: #### CBC #### [facility] [address] [address] [address] Santhosh Francois Calcium [Mass/Vol] 8.0 mg/dL Critically low 8.5-10.1 [facility] Comment on above: Performed By: #### CBC #### [facility] [address] [address] [address] Santhosh Francois Chloride [Moles/Vol] 111 mmol/L Critically high 98-107 [facility] Comment on above: Performed By: #### CBC #### [facility] [address] [address] [address] Santhosh Francois CO2 [Moles/Vol] 20.6 mmol/L Critically low 21.0-32.0 [facility] Comment on above: Performed By: #### CBC #### [facility] [address] [place] [address] Dr. Santhosh Francois Creatinine [Mass/Vol] 0.96 mg/dL Normal 0.70-1.30 [facility] Comment on above: Performed By: #### CBC #### [facility] [address] [place] [address] Dr. Santhosh Francois EGFR-AF KUWAITI >60 Normal >=60 [facility] Comment on above: Performed By: #### CBC #### [facility] [address] [place] [address] Dr. Santhosh Francois EGFR-NON AF [place] >60 Normal >=60 [facility] Comment on above: Performed By: #### CBC #### [facility] [address] [place] [address] Dr. Santhosh Francois Globulin (S) [Mass/Vol] 3.2 g/dL Normal [facility] Comment on above: Performed By: #### CBC #### [facility] [address] [place] [address] Dr. Santhosh Francois Glucose [Mass/Vol] 88 mg/dL Normal 74-106 [facility] Comment on above: Performed By: #### CBC #### [facility] [address] [address] [address] Santhosh Francois Potassium [Moles/Vol] 4.3 mmol/L Normal 3.5-5.1 [facility] Comment on above: Performed By: #### CBC #### [facility] [address] [address] [address] Santhosh Francois Protein [Mass/Vol] 6.8 g/dL Normal 6.4-8.2 [facility] Comment on above: Performed By: #### CBC #### [facility] [address] [address] [address] Santhosh Francois Sodium [Moles/Vol] 140 mmol/L Normal 136-145 [facility] Comment on above: Performed By: #### CBC #### [facility] [address] [address] [address] Santhosh Francois Urea nitrogen [Mass/Vol] 26.0 mg/dL Critically high 7.0-18.0 [facility] Comment on above: Performed By: #### CBC #### [facility] [address] [address] [address] Santhosh Francois Urea nitrogen/Creati nine [Mass ratio] 27.1 mg/mg Normal [facility] Comment on above: Performed By: #### CBC #### [facility] [address] [address] [address] Santhosh Francois ED Note-Physicianon 05-07-20 ED Note-Physician [id number]#[id number]:127 Normal [facility] RAD - CT Reporton 05-06-2022 RAD - CT Report [id number]#[id number]:127 Normal [facility] CBC AUTO DIFFon 04-30-2022 BASO # 0.0 103/ul Normal 0.0-0.1 [facility] Comment on above: Performed By: #### CBC #### [facility] [address] [address] [address] Santhosh Francois Basophils/100 WBC (Bld) 0.5 % Normal 0.2-2.0 [facility] Comment on above: Performed By: #### CBC #### [facility] [address] [place] [address] Dr. Santhosh Francois EO # 0.2 103/ul Normal 0.0-0.7 [facility] Comment on above: Performed By: #### CBC #### [facility] [address] [place] [address] Dr. Santhosh Francois Eosinophils/100 WBC (Bld) 2.9 % Normal 0.9-7.0 [facility] Comment on above: Performed By: #### CBC #### [facility] [address] [place] [address] Dr. Santhosh Francois Erythrocyte distribution width (RBC) [Ratio] 14.9 % Normal 11.0-15.0 [facility] Comment on above: Performed By: #### CBC #### [facility] [address] [place] [address] Dr. Santhosh Francois Hematocrit (Bld) [Volume fraction] 39.1 % Critically low 42.0-54.0 [facility] Comment on above: Performed By: #### CBC #### [facility] [address] [place] [address] Dr. Santhosh Francois Hemoglobin (Bld) [Mass/Vol] 12.2 g/dL Critically low 14.0-18.0 [facility] Comment on above: Performed By: #### CBC #### [facility] [address] [place] [address] Dr. Santhosh Francois IG # 0.01 10e3/ul Normal 0.00-0.03 [facility] Comment on above: Performed By: #### CBC #### [facility] [address] [place] [address] Dr. Santhosh Francois IG % 0.2 % Normal 0.0-0.5 [facility] Comment on above: Performed By: #### CBC #### [facility] [address] [place] [address] Dr. Santhosh Francois LYMPH # 2.0 103/ul Normal 1.2-3.8 [facility] Comment on above: Performed By: #### CBC #### [facility] [address] [address] [address] Santhosh Francois Lymphocytes/100 WBC (Bld) 32.6 % Normal 20.5-60.0 [facility] Comment on above: Performed By: #### CBC #### [facility] [address] [place] [address] Dr. Santhosh Francois MANUAL DIFF REQ NO Normal [facility] Comment on above: Performed By: #### CBC #### [facility] [address] [place] [address] Dr. Santhosh Francois MCH (RBC) [Entitic mass] 29.9 pg Normal 25.9-34.0 [facility] Comment on above: Performed By: #### CBC #### [facility] [address] [place] [address] Dr. Santhosh Francois MCHC (RBC) [Mass/Vol] 31.2 g/dL Normal 29.9-35.2 [facility] Comment on above: Performed By: #### CBC #### [facility] [address] [place] [address] Dr. Santhosh Francois MCV (RBC) [Entitic vol] 95.8 fL Critically high 80.0-94.0 [facility] Comment on above: Performed By: #### CBC #### [facility] [facility] [address] [place] [address] Dr. Santhosh Francois MONO # 0.5 103/ul Normal 0.3-0.8 [facility] Comment on above: Performed By: #### CBC #### [facility] [address] [place] [address] Dr. Santhosh Francois Monocytes/100 WBC (Bld) 7.9 % Normal 1.7-12.0 [facility] Comment on above: Performed By: #### CBC #### [facility] [address] [place] [address] Dr. Santhosh Francois NEUT # 3.5 103/ul Normal 1.4-6.5 [facility] Comment on above: Performed By: #### CBC #### [facility] [address] [address] [address] Santhosh Francois Neutrophils/100 WBC (Bld) 55.9 % Normal 43.0-75.0 [facility] Comment on above: Performed By: #### CBC #### [facility] [address] [address] [address] Santhosh Francois Platelet mean volume (Bld) [Entitic vol] 10.6 fL Normal 9.5-13.5 [facility] Comment on above: Performed By: #### CBC #### [facility] [address] [address] [address] Santhosh Francois PLT 125 103/ul Critically low 150-450 [facility] Comment on above: Performed By: #### CBC #### [facility] [address] [address] [address] Santhosh Francois RBC 4.08 106/ul Critically low 4.70-6.10 [facility] Comment on above: Performed By: #### CBC #### [facility] [address] [address] [address] Santhosh Francois WBC 6.2 103/ul Normal 4.0-11.0 [facility] Comment on above: Performed By: #### CBC #### [facility] [address] [address] [address] ABD/PELVIS WO CONon [...] CASSIDY DILLON Date: 2022-04-30 18:05 Normal [facility] CULTURE URINEon 04-30-2022 CULTURE URINE Culture Observations : NO GROWTH. Normal [facility] Comment on above: Performed By: #### URCX #### [facility] [address] [place] [address] Dr. Santhosh Francois ER URINE PROFILEon 2 Bilirubin Ql (U) Unable to perform testing due to color interference. Abnormal NEGATIVE [facility] Comment on above: Performed By: #### MICHELE CHENGRO #### [facility] [address] [place] [address] Dr. Santhosh Francois Clarity (U) TURBID Abnormal CLEAR [facility] Comment on above: Performed By: #### SKYLAR UMICRO #### [facility] [address] [place] [address] Dr. Santhosh Francois Color (U) RED Abnormal YELLOW [facility] Comment on above: Performed By: #### SKYLAR UMICRO #### [facility] [address] [place] [address] Dr. Santhosh Francois ERUAHD A micrscopic examina tion will be performed if indicated. Normal [facility] Comment on above: Performed By: #### SKYLAR UMICRO #### [facility] [address] [address] [address] Santhosh Francois Glucose Ql (U) Unable to perform te sting due to color interference. Abnormal NEGATIVE [facility] Comment on above: Performed By: #### NICOL CHENG #### [facility] [address] [address] [address] Santhosh Francois Hemoglobin Ql (U) Unable to perform testing due to color interference. Abnormal NEGATIVE [facility] Comment on above: Performed By: #### NICOL CHENG #### [facility] [address] [place] [address] Dr. Santhosh Francois Ketones Ql (U) Unable to perform te sting due to color interference. Abnormal NEGATIVE [facility] Comment on above: Performed By: #### NICOL CHENG #### [facility] [address] [place] [address] Dr. Santhosh Francois LEUKOCYTES Unable to perform te sting due to color interference. Abnormal NEGATIVE [facility] Comment on above: Performed By: #### NICOL CHENG #### [facility] [address] [place] [address] Dr. Santhosh Francois Nitrite Ql (U) Unable to perform te sting due to color interference. Abnormal NEGATIVE [facility] Comment on above: Performed By: #### NICOL CHENG #### [facility] [address] [place] [address] Dr. Santhosh Francois pH (U) 6.0 [pH] Normal 5-9 [facility] Comment on above: Performed By: #### NICOL CHENG #### [facility] [address] [place] [address] Dr. Santhosh Francois SPEC GRAVITY 1.025 Normal 1.005-<=1.02 5 [facility] Comment on above: Performed By: #### NICOL CHENG #### [facility] [address] [place] [address] Dr. Santhosh Francois UA PROTEIN Unable to perform te sting due to color interference. Normal NEGATIVE/ TRACE [facility] Comment on above: Performed By: #### NICOL CHENG #### [facility] [address] [place] [address] Dr. Santhosh Francois UR MICRO IND INDICATED Normal [facility] Comment on above: Performed By: #### NICOL CHENG #### [facility] [address] [address] [address] Santhosh Francois UROBILINOGEN Unable to perform te sting due to color interference. Normal 0.2 - 1.0 [facility] Comment on above: Performed By: #### NICOL CHENG #### [facility] [address] [place] [address] Dr. Santhosh Francois PROF CHEM 8 (BAS METB)on Anion gap [Moles/Vol] 12.6 mmol/L Normal [facility] Comment on above: Performed By: #### BMP #### [facility] [address] [place] [address] Dr. Santhosh Francois Calcium [Mass/Vol] 7.7 mg/dL Critically low 8.5-10.1 [facility] Comment on above: Performed By: #### BMP #### [facility] [address] [place] [address] Dr. Santhosh Francois Chloride [Moles/Vol] 114 mmol/L Critically high 98-107 [facility] Comment on above: Performed By: #### BMP #### [facility] [address] [place] [address] Dr. Santhosh Francois CO2 [Moles/Vol] 21.1 mmol/L Normal 21.0-32.0 [facility] Comment on above: Performed By: #### BMP #### [facility] [address] [place] [address] Dr. Santhosh Francois Creatinine [Mass/Vol] 1.12 mg/dL Normal 0.70-1.30 [facility] Comment on above: Performed By: #### BMP #### [facility] [address] [place] [address] Dr. Santhosh Francois EGFR-AF [place]I >60 Normal >=60 [facility] Comment on above: Performed By: #### BMP #### [facility] [address] [place] [address] Dr. Santhosh Francois EGFR-NON AF [place] >60 Normal >=60 [facility] Comment on above: Performed By: #### BMP #### [facility] [address] [place] [address] Dr. Santhosh Francois Glucose [Mass/Vol] 90 mg/dL Normal 74-106 [facility] Comment on above: Performed By: #### BMP #### [facility] [address] [address] [address] Santhosh Francois Potassium [Moles/Vol] 3.7 mmol/L Normal 3.5-5.1 [facility] Comment on above: Performed By: #### BMP #### [facility] [address] [place] [address] Dr. Santhosh Francois Sodium [Moles/Vol] 144 mmol/L Normal 136-145 [facility] Comment on above: Performed By: #### BMP #### [facility] [address] [place] [address] Dr. Santhosh Francois Urea nitrogen [Mass/Vol] 23.0 mg/dL Critically high 7.0-18.0 [facility] Comment on above: Performed By: #### BMP #### [facility] [address] [place] [address] Dr. Santhosh Francois Urea nitrogen/Creati nine [Mass ratio] 20.5 mg/mg Normal [facility] Comment on above: Performed By: #### BMP #### [facility] [address] [place] [address] Dr. Santhosh Francois URINE MICROSCOPIC ONLYon BACTERIA NONE SEEN Normal NONE SEEN [facility] Comment on above: Performed By: #### SKYLAR UMICRO #### [facility] [address] [place] [address] Dr. Santhosh Francois Bacteria identified Cx Nom (U) NOT INDICATED Normal [facility] Comment on above: Performed By: #### ERUR, UMICRO #### [facility] [address] [place] [address] Dr. Santhosh Francois CAST NONE SEEN Normal NONE SEEN [facility] Comment on above: Performed By: #### ERUR UMICRO #### [facility] [address] [place] [address] Dr. Santhosh Francois Crystals LM Nom (Urine sed) NONE SEEN Normal NONE SEEN [facility] Comment on above: Performed By: #### ERUR UMICRO #### [facility] [address] [place] [address] Dr. Santhosh Francois Epithelial cells LM Ql (Urine sed) NONE SEEN Normal NONE SEEN /RARE [facility] Comment on above: Performed By: #### SKYLAR UMICRO #### [facility] [address] [place] [address] Dr. Santhosh Francois MUCOUS NONE SEEN Normal NONE SEEN [facility] Comment on above: Performed By: #### SKYLAR UMICRO #### [facility] [address] [place] [address] Dr. Santhosh Francois RBC (U) [#/Vol] /uL Abnormal 0-2 [facility] Comment on above: Performed By: #### SKYLAR UMICRO #### [facility] [address] [place] [address] Dr. Santhosh Francois WBC 10-20 Abnormal NONE SEEN [facility] Comment on above: Performed By: #### SKYLAR UMICRO #### [facility] [address] [place] [address] Dr. Santhosh Francois CBC AUTO DIFFon 03-07-2022 BASO # 0.1 103/ul Normal 0.0-0.1 [facility] Comment on above: Performed By: #### CBC #### [facility] [address] [place] [address] Dr. Santhosh Francois Basophils/100 WBC (Bld) 0.8 % Normal 0.2-2.0 [facility] Comment on above: Performed By: #### CBC #### [facility] [address] [place] [address] Dr. Santhosh Francois EO # 0.1 103/ul Normal 0.0-0.7 [facility] Comment on above: Performed By: #### CBC #### [facility] [address] [place] [address] Dr. Santhosh Francois Eosinophils/100 WBC (Bld) 1.9 % Normal 0.9-7.0 [facility] Comment on above: Performed By: #### CBC #### [facility] [address] [place] [address] Dr. Santhosh Francois Erythrocyte distribution width (RBC) [Ratio] 16.4 % Critically high 11.0-15.0 [facility] Comment on above: Performed By: #### CBC #### [facility] [address] [place] [address] Dr. Santhosh Francois Hematocrit (Bld) [Volume fraction] 43.0 % Normal 42.0-54.0 [facility] Comment on above: Performed By: #### CBC #### [facility] [address] [place] [address] Dr. Santhosh Francois Hemoglobin (Bld) [Mass/Vol] 13.4 g/dL Critically low 14.0-18.0 [facility] Comment on above: Performed By: #### CBC #### [facility] [address] [place] [address] Dr. Santhosh Francois IG # 0.02 10e3/ul Normal 0.00-0.03 [facility] Comment on above: Performed By: #### CBC #### [facility] [address] [place] [address] Dr. Santhosh Francois IG % 0.3 % Normal 0.0-0.5 [facility] Comment on above: Performed By: #### CBC #### [facility] [address] [place] [address] Dr. Santhosh Francois LYMPH # 1.8 103/ul Normal 1.2-3.8 [facility] Comment on above: Performed By: #### CBC #### [facility] [address] [place] [address] Dr. Santhosh Francois Lymphocytes/100 WBC (Bld) 29.2 % Normal 20.5-60.0 [facility] Comment on above: Performed By: #### CBC #### [facility] [address] [place] [address] Dr. Santhosh Francois MANUAL DIFF REQ NO Normal [facility] Comment on above: Performed By: #### CBC #### [facility] [address] [place] [address] Dr. Santhosh Francois MCH (RBC) [Entitic mass] 30.5 pg Normal 25.9-34.0 [facility] Comment on above: Performed By: #### CBC #### [facility] [address] [place] [address] Dr. Santhosh Francois MCHC (RBC) [Mass/Vol] 31.2 g/dL Normal 29.9-35.2 [facility] Comment on above: Performed By: #### CBC #### [facility] [address] [place] [address] Dr. Santhosh Francois MCV (RBC) [Entitic vol] 97.9 fL Critically high 80.0-94.0 [facility] Comment on above: Performed By: #### CBC #### [facility] [address] [place] [address] Dr. Santhosh Francois MONO # 0.4 103/ul Normal 0.3-0.8 [facility] Comment on above: Performed By: #### CBC #### [facility] [address] [place] [address] Dr. Santhosh Francois Monocytes/100 WBC (Bld) 6.3 % Normal 1.7-12.0 [facility] Comment on above: Performed By: #### CBC #### [facility] [address] [place] [address] Dr. Santhosh Francois NEUT # 3.8 103/ul Normal 1.4-6.5 [facility] Comment on above: Performed By: #### CBC #### [facility] [address] [place] [address] Dr. Santhosh Francois Neutrophils/100 WBC (Bld) 61.5 % Normal 43.0-75.0 [facility] Comment on above: Performed By: #### CBC #### [facility] [address] [place] [address] Dr. Santhosh Francois Platelet mean volume (Bld) [Entitic vol] 10.5 fL Normal 9.5-13.5 [facility] Comment on above: Performed By: #### CBC #### [facility] [address] [place] [address] Dr. Santhosh Francois PLT 148 103/ul Critically low 150-450 [facility] Comment on above: Performed By: #### CBC #### [facility] [address] [place] [address] Dr. Santhosh Francois RBC 4.39 106/ul Critically low 4.70-6.10 [facility] Comment on above: Performed By: #### CBC #### [facility] [address] [place] [address] Dr. Santhosh Francois WBC 6.2 103/ul Normal 4.0-11.0 [facility] Comment on above: Performed By: #### CBC #### [facility] [address] [place] [address] Dr. Santhosh Francois IRONon 03-07-2022 Iron [Mass/Vol] 125.0 ug/dL Normal 65.0-175.0 [facility] Comment on above: Performed By: #### IRON #### [facility] [address] [place] [address] Dr. Santhosh Francois CBC AUTO DIFFon 12-03-2021 BASO # 0.0 103/ul Normal 0.0-0.1 [facility] Comment on above: Performed By: #### CBC #### [facility] [address] [place] [address] Dr. Santhosh Francois Basophils/100 WBC (Bld) 0.7 % Normal 0.2-2.0 [facility] Comment on above: Performed By: #### CBC #### [facility] [address] [place] [address] Dr. Santhosh Francois EO # 0.2 103/ul Normal 0.0-0.7 [facility] Comment on above: Performed By: #### CBC #### [facility] [address] [place] [address] Dr. Santhosh Francois Eosinophils/100 WBC (Bld) 3.1 % Normal 0.9-7.0 [facility] Comment on above: Performed By: #### CBC #### [facility] [address] [place] [address] Dr. Santhosh Francois Hematocrit (Bld) [Volume fraction] 40.4 % Critically low 42.0-54.0 [facility] Comment on above: Performed By: #### CBC #### [facility] [address] [place] [address] Dr. Santhosh Francois Hemoglobin (Bld) [Mass/Vol] 11.5 g/dL Critically low 14.0-18.0 [facility] Comment on above: Performed By: #### CBC #### [facility] [address] [place] [address] Dr. Santhosh Francois IG # 0.01 10e3/ul Normal 0.00-0.03 [facility] Comment on above: Performed By: #### CBC #### [facility] [address] [place] [address] Dr. Santhosh Francois IG % 0.2 % Normal 0.0-0.5 [facility] Comment on above: Performed By: #### CBC #### [facility] [address] [place] [address] Dr. Santhosh Francois LYMPH # 2.0 103/ul Normal 1.2-3.8 [facility] Comment on above: Performed By: #### CBC #### [facility] [address] [place] [address] Dr. Santhosh Francois Lymphocytes/100 WBC (Bld) 33.9 % Normal 20.5-60.0 [facility] Comment on above: Performed By: #### CBC #### [facility] [address] [place] [address] Dr. Santhosh Francois MANUAL DIFF REQ NO Normal [facility] Comment on above: Performed By: #### CBC #### [facility] [address] [place] [address] Dr. Santhosh Francois MCH (RBC) [Entitic mass] 24.1 pg Critically low 25.9-34.0 [facility] Comment on above: Performed By: #### CBC #### [facility] [address] [address] [address] Santhosh Francois MCHC (RBC) [Mass/Vol] 28.5 g/dL Critically low 29.9-35.2 [facility] Comment on above: Performed By: #### CBC #### [facility] [address] [address] [address] Santhosh Francois MCV (RBC) [Entitic vol] 84.5 fL Normal 80.0-94.0 [facility] Comment on above: Performed By: #### CBC #### [facility] [address] [address] [address] Santhosh Francois MONO # 0.4 103/ul Normal 0.3-0.8 [facility] Comment on above: Performed By: #### CBC #### [facility] [address] [place] [address] Dr. Santhosh Francois Monocytes/100 WBC (Bld) 7.7 % Normal 1.7-12.0 [facility] Comment on above: Performed By: #### CBC #### [facility] [address] [place] [address] Dr. Santhosh Francois NEUT # 3.1 103/ul Normal 1.4-6.5 [facility] Comment on above: Performed By: #### CBC #### [facility] [address] [place] [address] Dr. Santhosh Francois Neutrophils/100 WBC (Bld) 54.4 % Normal 43.0-75.0 [facility] Comment on above: Performed By: #### CBC #### [facility] [address] [place] [address] Dr. Santhosh Francois Platelet mean volume (Bld) [Entitic vol] 10.0 fL Normal 9.5-13.5 [facility] Comment on above: Performed By: #### CBC #### [facility] [address] [place] [address] Dr. Santhosh Francois PLT 191 103/ul Normal 150-450 [facility] Comment on above: Performed By: #### CBC #### [facility] [address] [place] [address] Dr. Santhosh Francois RBC 4.78 106/ul Normal 4.70-6.10 [facility] Comment on above: Performed By: #### CBC #### [facility] [address] [address] [address] Santhosh Francois WBC 5.8 103/ul Normal 4.0-11.0 [facility] Comment on above: Performed By: #### CBC #### [facility] [id number] Santhosh Francois MR prostate wo/w conon 09-17 MR prostate wo/w con [facility] [place] [address] [place] [address] MRI Report Signed Patient: Shabnam Burgess MR#: [id number] : 1955 Acct:[id number] Age/Sex: 65 / M ADM Date: 09/16/21 [...] AM COT by: Tomy Garza MD Diplomate, [employer] Report Completed: Sep 17, 2021 10:46:46 AM COT This transmission is proprietary, privileged and confidential. It is intended to be communication only for the use of the addressee; access to this message by anyone else is unaut Transcribed By: 09/17/21 [id number] Dictated By: NON STAFF 09/17/21 1046 Signed By: 09/17/21 1349 Normal [facility] Blood Urea Nitrogenon 2020 Urea nitrogen [Mass/Vol] 21 mg/dL Normal 06-20 [facility] Comment on above: Order Comment: STAT FOR MRI Performed By: #### C REAT, BUN #### [facility] [address] [place] [address] Creatinineon 09-03-2021 Creatinine [Mass/Vol] 1.01 mg/dL Normal 0.64-1.27 [facility] Comment on above: Order Comment: STAT FOR MRI Performed By: #### C REAT, BUN #### [facility] [address] [place] [address] Creatinine Clr Calc Pharmacy 90.06 [facility] Comment on above: Order Comment: STAT FOR MRI Result Comment: PERF ORMED BY: [place] [address] PATHOLOGIST LITIGATION DOCKET MANAGER TONNY ZHOU M.D. Performed By: #### C REAT, BUN #### [address] Estimated GFR ( Teresita > 60 [facility] Comment on above: Order Comment: STAT FOR MRI Result Comment: GFR estimated reference range: According to KDOQI guidelines, <60 ml/min/1.73m2 is sufficient to diagnose a patient with chronic kidney disease. Performed By: #### C REAT, BUN #### [facility] [address] [place] [address] Estimated GFR (Non- Am > 60 [facility] Comment on above: Order Comment: STAT FOR MRI Performed By: #### C REAT, BUN #### [facility] [address] [place] [address] Ironon 04-15-2019 Iron [Mass/Vol] 22 ug/dL Low 59-158 [facility] Comment on above: Performed By: #### CP #### [facility] [address] [place] [address] Top Executive: Frank Mercado MD #### B12, FE #### [facility] [address] [place] [address] Top Executive: Rainer Araujo MD Vitamin B12on 04-15-2019 Cobalamin (Vitamin B12) [Mass/Vol] 1062 pg/mL Normal 232-1245 [facility] Comment on above: Performed By: #### CP #### [facility] [address] [place] [address] Top Executive: Frank Mercado MD #### B12, FE #### [address] [address] Top Executive: Rainer Araujo MD Comp Metabolic Profon 2018 Albumin [Mass/Vol] 4.2 g/dL Normal 3.5-5.2 [facility] Comment on above: Performed By: #### CP #### [facility] [address] [place] [address] Top Executive: Frank Mercado MD #### B12, FE #### [id number] [place] [address] Top Executive: Rainer Araujo MD Albumin/Globuli n [Mass ratio] 1.6 {ratio} Normal 1.0-2.5 [facility] Comment on above: Performed By: #### CP #### [facility] [address] [place] [address] [place], [place] [id number] Top Executive: Frank Mercado MD #### B12, FE #### [address] [address] [place] [address] Top Executive: Rainer Araujo MD Alkaline Phos 120 U/L Normal 40-129 [facility] Comment on above: Performed By: #### CP #### [facility] [address] [place], [place] [id number] Top Executive: Frank Mercado MD #### B12, FE #### [address] [place] [address] Top Executive: Rainer Araujo MD Bilirubin Ql (U) 0.72 mg/dL Normal 0.3-1.2 [facility] Comment on above: Performed By: #### CP #### [facility] [address] [place], [place] [id number] Top Executive: Frank Mercado MD #### B12, FE #### [facility] [address] [place] [address] Top Executive: Rainer Araujo MD Protein [Mass/Vol] 6.8 g/dL Normal 6.4-8.3 [facility] Comment on above: Performed By: #### CP #### [facility] [address] [place], [place] [id number] Top Executive: Frank Mercado MD #### B12, FE #### [address] [place] [address] Top Executive: Rainer Araujo MD (cont.) Normal [facility] Comment on above: Result Comment: Average GFR for 60-69 ye ars old: 85 mL/min/1.73sq m Chronic Kidney Disease: <60 mL/min/1.73sq m Kidney failure: <15 mL/min/1.73sq m eGFR calculated using average adult body mass. Additional eGFR calculator available at: http://www.[employer]/multiple_crcl_2012.htm Performed By: #### C P #### [facility] [address] [place], [place] [id number] Top Executive: Frank Mercado MD #### B12, FE #### [facility] [address] [place] [address] Top Executive: Rainer Araujo MD ALT [Catalytic activity/Vol] 29 U/L Normal 5-41 [facility] Comment on above: Performed By: #### CP #### [facility] [address] [place], [place] [id number] Top Executive: Frank Mercado MD #### B12, FE #### [facility] [address] [place] [address] Top Executive: Rainer Araujo MD Anion gap [Moles/Vol] 10 mmol/L Normal [facility] Comment on above: Performed By: #### CP #### [facility] [address] [place], [place] [id number] Top Executive: Frank Mercado MD #### B12, FE #### [address] [address] Top Executive: Rainer Araujo MD AST [Catalytic activity/Vol] 26 U/L Normal <40 [facility] Comment on above: Performed By: #### CP #### [facility] [address] [place], [place] [id number] Top Executive: Frank Mercado MD #### B12, FE #### [address] [address] Top Executive: Rainer Araujo MD BUN/CRE Ratio 24 High 9-20 [facility] Comment on above: Performed By: #### CP #### [facility] [address] [place], [id number] Top Executive: Frank Mercado MD #### B12, FE #### [address] [address] Top Executive: Rainer Araujo MD Calcium [Mass/Vol] 8.2 mg/dL Low 8.6-10.4 [facility] Comment on above: Performed By: #### CP #### [facility] [address] [place], [place] [id number] Top Executive: Frank Mercado MD #### B12, FE #### [address] [address] Top Executive: Rainer Araujo MD Chloride [Moles/Vol] 115 mmol/L High 98-107 [facility] Comment on above: Performed By: #### CP #### [facility] [address] [place] [address] Top Executive: Frank Mercado MD #### B12, FE #### [facility] [address] [place] [address] Top Executive: Rainer Araujo MD CO2 [Moles/Vol] 17 mmol/L Low 20-31 [facility] Comment on above: Performed By: #### CP #### [facility] [address] [place] [address] [place] [address] Top Executive: Frank Mercado MD #### B12, FE #### [address] [address] Top Executive: Rainer Araujo MD Creatinine [Mass/Vol] 1.11 mg/dL Normal 0.70-1.20 [facility] Comment on above: Performed By: #### CP #### [address] [place] [address] Top Executive: Frank Mercado MD #### B12, FE #### [address] [address] Top Executive: Rainer Araujo MD GFR, Amer >60 Normal >60 [facility] Comment on above: Performed By: #### CP #### [facility] [address] [place] [address] [place] [address] Top Executive: Frank Mercado MD #### B12, FE #### [facility] [address] [place] [address] Top Executive: Rainer Araujo MD GFR,non Amer >60 Normal >60 [facility] Comment on above: Performed By: #### CP #### [address] [place] [address] Top Executive: Frank Mercado MD #### B12, FE #### [address] [place] [address] Top Executive: Rainer Araujo MD Glucose [Mass/Vol] 103 mg/dL High 70-99 [facility] Comment on above: Performed By: #### CP #### [facility] [address] [place], [place] [id number] Top Executive: Frank Mercado MD #### B12, FE #### [address] [address] Top Executive: Rainer Araujo MD Potassium [Moles/Vol] 4.1 mmol/L Normal 3.7-5.3 [facility] Comment on above: Performed By: #### CP #### [address] [place], [place] [id number] Top Executive: Frank Mercado MD #### B12, FE #### [address] [address] Top Executive: Rainer Araujo MD Sodium [Moles/Vol] 142 mmol/L Normal 135-144 [facility] Comment on above: Performed By: #### CP #### [address] [place], [place] [id number] Top Executive: Frank Mercado MD #### B12, FE #### [address] [address] Top Executive: Rainer Araujo MD Staging: Normal [facility] Comment on above: Result Comment: Stage 1: Some kidney dam age normal GFR Stage 2: Mild kidney damage GFR 60-89 Stage 3: Moderate kidney damage GFR 30-59 Stage 4: Severe kidney damage GFR 15-29 Stage 5: Severe kidney damage GFR <15 ESRD - chronic treatment by dialysis or transplant Performed By: #### C P #### [facility] [address] [place] [address] Dr. [place], [place] [id number] Top Executive: Frank Mercado MD #### B12, FE #### [address] [place], [place] [id number] Top Executive: Rainer Araujo MD Urea nitrogen [Mass/Vol] 27 mg/dL High 8- [facility] Comment on above: Performed By: #### CP #### [facility] [address] [place] [address] Top Executive: Frank Mercado MD #### B12, FE #### [facility] [address] [place], [place] [id number] Top Executive: Rainer Araujo MD Vital Signs Date Time Vital Sign Value Performing Clinician Facility 11-04-2023 15:54-0500 Body height 177.8 cm Park Paresh FABRIC NORMALIZER Work Phone: [facility] 11-04-2023 15:54-0500 Body mass index (BMI) [Ratio] 34.47 kg/m2 Park Mikez FABRIC NORMALIZER Work Phone: [facility] 11-04-2023 15:54-0500 Body temperature 97.11 [degF] Park Tatianahnicolettez FABRIC NORMALIZER Work Phone: [facility] 11-04-2023 15:54-0500 Body weight 108.95 kg Park Tatianahholz FABRIC NORMALIZER Work Phone: [facility] 11-04-2023 15:54-0500 Diastolic blood pressure 78 mm[Hg] Park Mikez FABRIC NORMALIZER Work Phone: [facility] 11-04-2023 15:54-0500 Heart rate 66 /min Park Aichholz FABRIC NORMALIZER Work Phone: [facility] 11-04-2023 15:54-0500 Respiratory rate 18 /min Park Aichnicolettez FABRIC NORMALIZER Work Phone: [facility] 11-04-2023 15:54-0500 SaO2% (BldA) [Mass fraction] 97 % Park Mikez FABRIC NORMALIZER Work Phone: [facility] 11-04-2023 15:54-0500 Systolic blood pressure 118 mm[Hg] Park Terrazasnicolettemichelle FABRIC NORMALIZER Work Phone: [facility] 10-19-2023 15:01-0500 Blood Pressure Location Puneet BRIGGS [facility] 10-19-2023 15:01-0500 Diastolic blood pressure 60 mm[Hg] Puneet BRIGGS [facility] 10-19-2023 15:01-0500 Heart rate 64 /min Puneet BRIGGS [facility] 10-19-2023 15:01-0500 Respiratory rate 16 /min Puneet BRIGGS [facility] 10-19-2023 15:01-0500 Systolic blood pressure 109 mm[Hg] Puneet BRIGGS [facility] 04-13-2023 15:59-0400 Blood Pressure Location Puneet BRIGGS [facility] 04-13-2023 15:59-0400 Diastolic blood pressure 80 mm[Hg] Puneet BRIGGS [facility] 04-13-2023 15:59-0400 Heart rate 68 /min Puneet BRIGGS [facility] 04-13-2023 15:59-0400 Respiratory rate 16 /min Puneet BRIGGS [facility] 04-13-2023 15:59-0400 Systolic blood pressure 130 mm[Hg] Puneet BRIGGS [facility] 11-04-2022 14:37-0500 Blood Pressure Location Puneet BRIGGS [facility] 11-04-2022 14:37-0500 Diastolic blood pressure 69 mm[Hg] Puneet BRIGGS [facility] 11-04-2022 14:37-0500 Heart rate 68 /min Puneet BRIGGS [facility] 11-04-2022 14:37-0500 Systolic blood pressure 118 mm[Hg] Puneet BRIGGS [facility] 05-19-2022 15:59-0400 Blood Pressure Location Puneet BRIGGS [facility] 05-19-2022 15:59-0400 Diastolic blood pressure 66 mm[Hg] Puneet BRIGGS [facility] 05-19-2022 15:59-0400 Heart rate 59 /min Puneet BRIGGS [facility] 05-19-2022 15:59-0400 Respiratory rate 16 /min Puneet BRIGGS [facility] 05-19-2022 15:59-0400 Systolic blood pressure 117 mm[Hg] Puneet BRIGGS [facility] Encounters Encounter Date Encounter Type Care Provider Facility Start: 03-30-2024 End: 03-30-2024 ambulatory PARK AICHHOLZ Not Available Start: 02-18-2024 End: 02-18-2024 ambulatory PARK AICHHOLZ Not Available Start: 11-04-2023 End: 11-04-2023 ambulatory PARK YODER Not Available Start: 11-04-2023 End: 11-04-2023 Office outpatient visit 15 minutes Park Yoder FABRIC NORMALIZER Work Phone: [facility] Comment on above: 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); BMI 37.0-37.9, adult; Nonischemic cardiomyopathy (CMS/HCC); Primary hypertension (CMS/HCC); Chronic systolic heart failure (CMS/HCC); H/O bariatric surgery; Mixed hyperlipidemia (CMS/HCC) Start: 11-04-2023 Bamboo flowsheet Park Ydoer FABRIC NORMALIZER Work Phone: [facility] Start: 11-04-2023 Bamboo flowsheet Park Yoder FABRIC NORMALIZER Work Phone: [facility] Start: 10-19-2023 ambulatory Puneet Dykesi ty:[facility] Start: 10-19-2023 End: 10-19-2023 Patient encounter procedure Puneet BRIGGS [facility] Start: 04-13-2023 End: 04-14-2023 ambulatory Puneet BRIGGS Facility:[facility] [place] Start: 04-13-2023 End: 04-13-2023 Patient encounter procedure Puneet BRIGGS [facility] Start: 03-18-2023 End: 03-19-2023 ambulatory Puneet BRIGGS Facility:[facility] Start: 03-18-2023 End: 03-18-2023 Patient encounter procedure Puneet BRIGGS [facility] Start: 11-24-2022 ambulatory Puneet Dykesi ty:[facility] [place] Start: 11-21-2022 End: 11-22-2022 ambulatory LILIANA YODER Facility:[facility] Start: 11-04-2022 End: 11-05-2022 ambulatory Puneet BRIGGS Facility:[facility] [place] Start: 11-04-2022 End: 11-04-2022 Patient encounter procedure Puneet Vandana ANAHI [facility] Start: 09-12-2022 End: 09-12-2022 ambulatory DEANNE OBRIEN . Facility:[facility] Start: 05-19-2022 End: 05-20-2022 ambulatory Puneet BRIGGS Facility:[facility] [place] Start: 05-19-2022 End: 05-19-2022 Patient encounter procedure Puneet BRIGGS [facility] [place] Start: 05-16-2022 End: 05-17-[address] DOCTOR [...] Patient encounter procedure PARK YODER [facility] Start: 01-28-2018 End: 01-29-2018 Ambulatory DEFAULT PHYSICIAN Facility:[facility] Procedures Date Procedure Procedure Detail Performing Clinician Start: 11-21-[address] PUNEET BRIGGS . Comment on above: Performed By: #### PSAD #### [facility] [address] [address] [address] Santhosh Francois Start: 11-04-2022 Cystoscopy Puneet BRIGGS Start: 05-16-[address] PUNEET BRIGGS . Comment on above: Performed By: #### PSAD #### [facility] [address] [place] [address] Dr. Santhosh Francois Start: 12-18-2021 Colonoscopy Ary NILL Start: 12-18-2021 Esophagogastroduodenoscopy Ary NILL Start: 11-14-2021 MRI-US fusion guided transrectal biopsy of prostate Ary NILL Start: 03-27-2021 Transrectal biopsy of prostate using ultrasound guidance Ary NILL Start: 03-22-2020 Transurethral prostatectomy Ary NILL Start: 04-14-2019 Assay of iron PARK AICHHOLZ Start: 04-14-2019 Comprehensive metabolic panel PARK AICHH OLZ Start: 04-14-2019 Cyanocobalamin vitamin b-12 PARK AICHHOL Z Start: 01-12-2017 Cystoscope, device (physical object) Ary PRICEL Start: 09-28-1999 Esophagogastrostomy, antesternal or antethoracic Ary NILL Appendectomy Ary NILL Cardiac catheterization Devang aenicolas NILL Cholecystectomy Ary NILL Colonoscopy Ary NILL History of radiofreq uency ablation operation for arrhythmia Ary NILL Lithotripsy Ary NILL Comment on above: x3 Repair of umbilical hernia M ichmike NILL Plan of Treatment Date Care Activity Detail Author Start: 12-28-2023 Screening for malign ant neoplasm of colon [facility] Start: 05-29-2023 Influenza vaccination Influenza Vacc ine (#1) [facility] Start: 11-28-1963 Pneumococcal Vaccine : 65+ Years (1 - PCV) Pneumococcal Vaccine: 65+ Years (1 - PCV) [facility] Start: 1957 Screening for malign ant neoplasm of colon [facility] Immunizations Immunization Date Immunization Notes Care Provider Hipolito oneal 08-12-2023 Influenza, High-dose Seasonal, Quadrivalent, Preservative Free Park Yoder FABRIC NORMALIZER Work Phone: [facility] 07-29-2021 influenza virus vaccine, unspecified formulation Ary ARTEAGA [facility] [place] 02-13-2021 SARS-CoV-2 (COVID-19 ) mRNA BNT-162u0 vax Puneetyann BRIGGS [facility] 01-23-2021 SARS-CoV-2 (COVID-19 ) mRNA BNT-162b2 vax Puneet BRIGGS [facility] 09-28-2020 SARS-CoV-2 (COVID-19 ) mRNA BNT-162b2 vax Ary ARTEAGA [facility] [place] 07-02-2020 influenza virus vaccine, unspecified formulation Ary ARTEAGA [facility] [place] Payers Date Payer Category Payer Unknown 1957 Unknown [id number] 1955 Unknown [id number] 2.16.84 [id number] 1957 Unknown [id number] 2.16.84 0.1.291608.3.579.2.593 1957 Unknown [id number] 2.16.84 0.1.661786.3.579.2.593 1957 Unknown [id number] 2.16.84 0.1.073182.3.579.2.593 1957 Unknown [id number] 2.16.84 0.1.256157.3.579.2.593 1957 Unknown [id number] 2.16.84 0.1.141667.3.579.2.593 1957 Unknown [id number] 2.16.84 0.1.468925.3.579.2.593 1957 Unknown [id number] 2.16.84 0.1.065163.3.579.2.593 1957 Unknown [id number] 2.16.84 0.1.948787.3.579.2.593 1957 Unknown [id number] 2.16.8 40.1.051697.3.579.2.727 1957 Unknown [id number] 2.16.8 40.1.035834.3.579.2.727 1957 Unknown [id number] 2.16.8 40.1.511676.3.579.2.727 1957 Unknown [id number] 2.16.8 40.1.782770.3.579.2.727 1957 Unknown [id number] 2.16.8 40.1.578337.3.579.2.727 1957 Unknown [id number] 2.16.8 40.1.767585.3.579.2.727 1957 Unknown [id number] 2.16.84 0.1.219508.3.579.2.1259 1957 Unknown [id number] 2.16.84 0.1.868250.3.579.2.1259 1957 Unknown [id number] 2.16.84 0.1.995260.3.579.2.1259 1957 Unknown [id number] 2.16.84 0.1.739706.3.579.2.1259 Social History Date Type Detail Facility Start: 12-06-2021 End: 10-26-2023 Tobacco smoking status Never smoked tobacco (finding) [facility] [place] Tobacco smoking status Never [facility] [place] Start: 10-26-2023 End: 11-04-2023 [facility] At [facility] Start: 10-19-2023 Tobacco smoking status Light t obacco smoker (finding) [facility] Start: 10-26-2023 End: 11-04-2023 History of Social function [facility] Start: 1955 Sex Assigned At Not on file [facility] Start: 11-04-2023 Alcohol intake Ex-drinker (finding) [facility] Start: 11-04-2023 Alcohol Comment caffine: 3 cups lucretia y [facility] Functional Status Date Assessment Result Facility 10-19-2023 Functional Status Yes [facility] 04-13-2023 Functional Status N/A [facility] 11-04-2022 Functional Status N/A [facility] 05-19-2022 Functional Status N/A [facility] Clinical Notes 12-18-2021 to 11-04-2023 Park Yoder, FABRIC NORMALIZER - 11/04/2023 4:06 PM ESTPark Yoder, FABRIC NORMALIZER - 11/04/2023 4:06 PM ESTPark Yoder, FABRIC NORMALIZER - 11/04/2023 4:06 PM ESTJoliesa Paresh, FABRIC NORMALIZER - 11/04/2023 4:05 PM EST Note Date [...] cont current meds documented in this encounter [facility] 10-19-2023 Hospital Discharge instructions Patient Education [...] urethra. Follow these instructions at home: Take aboq-bjn-cegkduv and prescription medicines only as told by [...] provider. Document Revised: 04/02/2022 Document Reviewed: 04/02/2022 B-Obvious Patient Education 2022 [employer]. Follow Up Care 04/13/2023 16:26:55 With:ANAHI MCDONALD, DELANEY Conti Address: [facility] [address], [place] [address]- When:Within 1 Year(s) Comments:w/PSA [facility] [place] 04-13-2023 Hospital Discharge instructions Patient Education 04/13/2023 [...] similar to normal prostate cells (well differentiated). [place] 7: This indicates that the cancer cells look somewhat similar to normal prostate cells (moderately differentiated). [place] 8, 9, or 10: This indicates that [...] stress of having cancer. General instructions Take mzap-ugg-rxgyvkt and prescription medicines only as told by your health care provider. If you have to go to the hospital, notify your cancer specialist (oncologist). Keep all follow-up visits. This is important. Where to find more information [employer]: www.cancer.org [employer] of Clinical Oncology: www.cancer.net National Cancer [place]: www.cancer.gov Contact a health care provider if: [...] provider. Document Revised: 12/11/2021 Document Reviewed: 12/11/2021 B-Obvious Patient Education 2022 [employer]. Follow Up Care 03/16/2023 14:05:40 With:ANAHI MCDONALD, Puneet Ross, URL Address: [facility] [address] [place] [id number] When: Unknown Comments:6 mos w/ PSA and PVR [facility] [place] 11-03-2022 Hospital Discharge instructions Patient Education 11/03/2022 [...] urethra. Follow these instructions at home: Take lbyn-dqd-rrkctjk and prescription medicines only as told by [...] 09/14/2006 Document Revised: 08/09/2019 Document Reviewed: 10/19/2017 B-Obvious Patient Education 2020 [employer]. Follow Up Care 10/13/2022 13:53:44 With:ANAHI MCDONALD, Puneet Ross, URL Address: [facility] [address] [place] [address]- When: Unknown [facility] 05-19-2022 Hospital Discharge instructions Patient Education 05/19/2022 16:24:13 Prostatitis, Yjyj-uy-Oosu Prostatitis Prostatitis is swelling of the prostate gland. The prostate helps to make semen. It is below a man's bladder, in front of the rectum. There are different types of prostatitis. Follow these instructions at home: Take ozix-ick-kmmhrex and prescription medicines only as told by [...] 03/15/2013 Document Revised: 08/27/2018 Document Reviewed: 06/04/2017 B-Obvious Patient Education 2020 [employer]. 05/19/2022 16:24:11 Calorie Counting for Weight Loss [...] 09/14/2006 Document Revised: 06/03/2019 Document Reviewed: 08/14/2017 B-Obvious Patient Education 2020 [employer]. Follow Up Care 11/22/2021 12:25:13 With:ANAHI MCDONALD, Puneet Ross, URL Address: [address] [place], [place] [id number] Business (1) When:Within 6 Month(s) Comments:w/FESTUS [facility] 12-18-2021 Note OPERATIVE NOTE PREOPERATIVE DIAGNOSIS: [...] to the poor prep. CC: Park Yoder, LILIANA [facility] Signed and Approved by: DR ARY ARTEAGA . 12/20/2021 11:57:00 [facility] Evaluation + Plan note Future Appointments Appointment Date:05/19/2022 03:15:00 PM Scheduled Provider:Puneet BRIGGS MD Location:[facility] Appointment Type:URO Office Visit [facility] [place] Evaluation + Plan note Future Appointments Appointment Date:11/24/2022 03:30:00 PM Scheduled Provider:Puneet BRIGGS MD Location:[facility] Appointment Type:URO Office Visit Diagnostic Tests PendingPSA Total 05/19/22 [facility] Evaluation + Plan note Future Appointments Appointment Date:03/18/2023 08:30:00 AM Scheduled Provider:Puneet BRIGGS MD Location:[facility] Appointment Type:URO Office Visit Diagnostic Tests PendingUroVysion Fish and Urine Cyto ([facility]) 11/04/22 [facility] Evaluation + Plan note Future Appointments Appointment Date:03/23/2023 03:00:00 PM Scheduled Provider:Puneet BRIGGS MD Location:[facility] Appointment Type:URO Office Visit [facility] Evaluation + Plan note Future Appointments Appointment Date:10/19/2023 02:45:00 PM Scheduled Provider:Puneet BRIGGS MD Location:[facility] Appointment Type:URO Office Visit Diagnostic Tests PendingPSA Total 04/13/23 [facility] Evaluation + Plan note Future Appointments Appointment Date:10/24/2024 03:00:00 PM Scheduled Provider:Puneet BRIGGS MD Location:[facility] Appointment Type:URO Office Visit Diagnostic Tests PendingPSA Total 10/19/23 [facility] Evaluation note Diagnosis Iron deficiency anemia following bariatric surgery- Primary BMI 37.0-37.9, adult Nonischemic cardiomyopathy (CMS/HCC) Other primary cardiomyopathies Primary hypertension (CMS/HCC) Unspecified essential hypertension Chronic systolic heart failure (CMS/HCC) Chronic systolic heart failure H/O bariatric surgery Mixed hyperlipidemia (CMS/HCC) Mixed hyperlipidemia [facility] Narrative No data available for this section [facility] [place] [facility] Discharge instructions No data available for this section [facility] [place] note No data available for this section [facility] Summary Purpose Family History No Family [...] section and content) DATE CREATED AUTHOR 03/18/2018 [facility] DATE CREATED AUTHOR AUTHOR'S ORGANIZ ATION 04/15/2019 [facility] DATE CREATED AUTHOR AUTHOR'S ORGANIZ ATION 12/16/2021 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 [facility]. provides no warranty or guarantee of the accuracy or completeness of information in this document.
[2024-04-02 09:21] LABS: Basophils Absolute Auto 0.1 10^3/uL (0.0-0.1); Basophils Percent Auto 0.7 % (0.2-2.0); Eosinophils Absolute Auto 0.2 10^3/uL (0.0-0.7); Hematocrit 40.8 % (42.0-54.0); Hemoglobin 12.6 g/dL (14.0-18.0); Immature Granulocytes Abs Auto 0.01 10^3/uL (0.00-0.03); Immature Granulocytes Pct Auto 0.1 % (0.0-0.5); Lymphocytes Percent Auto 29.9 % (20.5-60.0); Mean Corpuscular HGB Conc 30.9 g/dL (29.9-35.2); Mean Corpuscular Hemoglobin 31.8 pg (25.9-34.0); Mean Platelet Volume 10.9 fL (9.5-13.5); Monocytes Absolute Auto 0.5 10^3/uL (0.3-0.8); Monocytes Percent Auto 7.2 % (1.7-12.0); Neutrophils Percent Auto 59.1 % (43.0-75.0); Platelet Count 119 10^3/uL (150-450); Red Blood Count 3.96 10^6/uL (4.70-6.10); Red Cell Distribution Width 14.9 % (11.0-15.0); White Blood Count 6.7 10^3/uL (4.0-11.0)
[2024-04-02 09:22] LABS: Bilirubin Urine NEGATIVE (NEGATIVE); Blood Urine SMALL (NEGATIVE); Clarity Urine CLEAR (CLEAR); Color Urine YELLOW (YELLOW); Glucose Urine UA NEGATIVE (NEGATIVE); Ketones Urine NEGATIVE (NEGATIVE); Leukocyte Esterase Urine TRACE (NEGATIVE); Nitrite Urine POSITIVE (NEGATIVE); Protein Urine NEGATIVE (NEG/TRACE); Urobilinogen Urine 0.2 EU/dL (0.2-1.0)
[2024-04-02 09:23] LABS: Urine Microscopic Indicated YES
[2024-04-02 09:34] LABS: Bacteria Urine MODERATE #/HPF (NONE SEEN); Cast Seen? NONE SEEN #/LPF (NONE SEEN); Crystals Seen? None Seen #/HPF (None Seen); Mucus Urine TRACE (NONE SEEN); Squamous Epithelial Cell Urine RARE #/LPF (NONE/RARE); Urine Culture Indicated ALREADY ORDERED
[2024-04-02 09:46] LABS: Alanine Aminotransferase 96 U/L (16-63); Albumin Globulin Ratio 1.3; Alkaline Phosphatase 108 U/L (46-116); Anion Gap 16.9; Aspartate Amino Transferase 54 U/L (15-37); BUN Creatinine Ratio 32.3; Bilirubin Direct 0.5 mg/dL (0.0-0.2); Bilirubin Total 1.3 mg/dL (0.2-1.0); Calcium 7.7 mg/dL (8.5-10.1); Carbon Dioxide 19.9 mmol/L (21.0-32.0); Chloride 108 mmol/L (98-107); Estimated GFR (African America >60 (>=60); Estimated GFR (Non-African Ame >60 (>=60); Glucose 86 mg/dL (74-106); Potassium 3.8 mmol/L (3.5-5.1); Sodium 141 mmol/L (136-145)
[2024-04-04 13:07] LABS: PTH, Intact 207 pg/mL (15-65)
== END 2024-04-02 09:00 | disposition home or self-care (01) ==
LOC: LAB 09:00
PROVIDERS: PCP Nurse Practitioner; Visit Provider Nurse Practitioner
DX: R79.89 Other specified abnormal findings of blood chemistry (principal); R16.0 Hepatomegaly, not elsewhere classified; Z90.49 Acquired absence of other specified parts of digestive tract; N28.1 Cyst of kidney, acquired; N30.00 Acute cystitis without hematuria; E83.51 Hypocalcemia; K95.89 Other complications of other bariatric procedure; D50.8 Other iron deficiency anemias
CPT/HCPCS: 36415; 76705; 80048; 80076; 81001; 82306; 83970; 85025; 87086

== ENCOUNTER 2024-05-02 10:53 | Outpatient (OUT) | payer BC, SELFPAY ==
--- OUTSIDE RECORDS SUMMARY | 2024-05-02 11:00 | XMS_ITS | CCD ---
Author Organization [facility] Care Team Providers Care Software Engineer Name Role Phone PHYSICIAN, DEFAULT Unavailable Unavailable PHYSICIAN, DEFAULT Unavailable Unavailable TATIANAHPARK ANGUIANO. Referring Unavailable TATIANAHQUIANA PARK J. Primary Care Unavailable TATIANAHQUIANA PARK J Primary Care Physician [phone] ANAHI Jackson, DR NGUYỄN Consulting Unavailable BRIGGS ., DR NGUYỄN Admitting Unavailable BRIGGS ., DR NGUYỄN Attending Unavailable AICHHOLZ, FENCE MAKING MACHINE OPERATOR PARK Primary Care Unavailable MISC, DR AYERS Consulting Unavailable MISC, DR AYERS Admitting Unavailable MISC, DR AYERS Attending Unavailable AICHHOLZ, FENCE MAKING MACHINE OPERATOR PARK Primary Care Unavailable AICHHOLZ, FENCE MAKING MACHINE OPERATOR PARK Consulting Unavailable AICHHOLZ, FENCE MAKING MACHINE OPERATOR PARK Primary Care Unavailable BRIGGS ., DR NGUYỄN Admitting Unavailable BRIGGS ., DR NGUYỄN Attending Unavailable ZIEBER, DR CASSIDY Ross Consulting Unavailable ELI DALAL Attending Unavailable ELI DALAL Admitting Unavailable AICHHOLZ, FENCE MAKING MACHINE OPERATOR PARK Primary Care Unavailable JENNIFER DRAKE Consulting Unavailable CAMILLE .DEANNE Consulting UnavailISACC Sidhu Admitting Unavailable ISACC BEJARANO Attending Unavailable AICHHOLZ, FENCE MAKING MACHINE OPERATOR PARK Primary Care Unavailable ISACC BEJARANO Consulting Unavailable AICHHOLZ, FENCE MAKING MACHINE OPERATOR PARK Primary Care Unavailable NILL ., DR MCALLISTER Admitting Unavailable NILL ., DR MCALLISTER Attending Unavailable NILL ., DR MCALLISTER Consulting Unavailable AICHHOLZ, FENCE MAKING MACHINE OPERATOR PARK Primary Care Unavailable NILL ., DR MCALLISTER Admitting Unavailable NILL ., DR MCALLISTER Attending Unavailable TAMERAUBGRACE LOPEZ Consulting Unavailable JUAN ORO Consulting Unavailable AICHHOLZ, FENCE MAKING MACHINE OPERATOR PARK Consulting Unavailable AICHHOLZ, FENCE MAKING MACHINE OPERATOR PARK Primary Care Unavailable AICHHOLZ, FENCE MAKING MACHINE OPERATOR PARK Admitting Unavailable AICHHOLZ, FENCE MAKING MACHINE OPERATOR PARK Attending Unavailable AICHHOLZ, FENCE MAKING MACHINE OPERATOR PARK Consulting Unavailable AICHHOLZ, FENCE MAKING MACHINE OPERATOR PARK Admitting Unavailable AICHHOLZ, FENCE MAKING MACHINE OPERATOR PAKR Attending Unavailable AICHHOLZ, LILIANA PARK Primary Care Unavailable Puneet BRIGGS Attending Unavailable ANAHI, Puneet Ross Attending Unavailable ANAHI, Puneet Ross Attending Unavailable Puneet BRIGGS Attending Unavailable ANAHI, Puneet Ross Attending Unavailable ANAHI, Puneet Ross Attending Unavailable Kenny Hartley MD Primary Care Provider [phone] PARK YODER Attending Unavailable PARESH, PARK Attending Unavailable SARBJITHOLMichelle, PARK Attending Unavailable LITO GANNON Attending Unavailable PARESH, PARK Referring Unavailable YISEL MITCHELL Attending Unavailable PARK YODER J Referring Unavailable PARK YODER J Primary Care Unavailable Medications Current Medications Medication Drug Class(es) [...] procedure, # 2 tab(s), Refills(s) 0, Pharmacy: [id number], 176, cm, 05/19/22 16:10:00 EDT, Height/Length Dosing, 115, kg, 05/19/22 16:10:00 ED... Start Date: 1/16/23 Status: Ordered Problems Active Problems Problem Classification [...] 12-01-2017 12-06-2021 Chronic Congestive heart failure; nonhypertensive (15 sources) Chronic systolic heart failure; Translations: [Chronic [...] with lower urinary tract symptoms] Onset: 05-19-2022 1 Chronic Hypertension with complications and secondary hypertension (1 source) Hypertensive heart disease with heart failure; Translations: [HTN HEART DISEASE W/HEART FAIL] Onset: 12-24-2021 Chronic Inflammatory conditions of male genital organs (11 sources) Chronic prostatitis; Translations: [Chronic prostatitis] Onset: 05-19-2022 10-24-2019 Chronic Other aftercare (1 source) group home (current) use of aspirin; Translations: [APPLIED ANTHROPOLOGIST CURRENT USE OF ASPIRIN] Onset: 09-15-2022 Episodic Other aftercare (1 source) Other [place] [facility] (current) drug therapy; Translations: [OTH APPLIED ANTHROPOLOGIST CURRENT DRUG THERAPY] Onset: 09-15-2022 Episodic Other circulatory disease (1 source) Personal history of other diseases of the circulatory system; Translations: [Personal history of other diseases of the circulatory system] Onset: 04-27-2024 Episodic Other diseases of kidney and ureters [...] caused by tuberculosis or sexually transmitted disease) (16 sources) Cardiomyopathy; Translations: [Other cardiomyopathies] Onset: 09-18-2017 12-06-2021 Chronic Pulmonary heart disease (1 source) Pulmonary hypertension, unspecified; Translations: [PULMONARY HYPERTENSION UNSPECIFIED] Onset: 12-24-2021 Chronic Residual codes; unclassified (1 source) Other specified postprocedural states; Translations: [Other specified postprocedural states] Onset: 04-27-2024 Episodic Screening and history of mental health and substance abuse codes (1 source) Personal history of nicotine dependence; Translations: [PERSONAL HISTORY OF NICOTINE DEPEND] Onset: 09-15-2022 Episodic Unclassified (7 sources) Severe pulmonary hypertension 12-06-2021 Unclassified (3 sources) History of SARS-CoV-2 Onset: 11-19-2021 03-12-2023 Unclassified (1 source) Other ventricular tachycardia; Translations: [Other ventricular tachycardia] Onset: 05-12-2017 Past or Other Problems Problem Classification Problem [...] Urnls Dip Stick Auto w/o Microscopy POC 47364 Your Care Team Attending Physician - Puneet [...] Follow-Up Appointments Thursday 2:45 PM EST With: Puneet BRIGGS MD Where: [facility] Patient Educationon 04-13-20 Patient Education Oncology Prostate [...] likelihood that the cancer will spread. ? [place] 6 or lower: This indicates that the cancer cells look similar to normal prostate cells (well differentiated). ? [place] 7: This indicates that the cancer cells look somewhat similar to normal prostate cells (moderately differentiated). ? [place] 8, 9, or 10: This indicates that [...] external be (more content not included)... Normal [facility] Reminderson 04-13-2023 Reminders - From: Shala Soares To: EU - Recalls Briggs; Sent: 04/13/2023 16:27:00 EDT Show up: 09/13/2023 15:26:00 EST Subject: PSA Reminder Message Please Remember to:_get PSA (at [facility]) prior to next appt. Normal [facility] Urology Office/Clinic Noteon 04-13-2023 Urology [...] [facility] [address], [place] [id number] Additional Instructions: 6 mos w/ PSA and [...] of prostat (more content not included)... Normal [facility] Comment on above: Result Comment: Electronically Signed By : Puneet BRIGGS MD\.br\Date and Time Signed: 04/13/23 16:26 EDT\.br\Electronically Co-Signed By: Shala Soares\.br\Date and Time Co-Signed: 04/13/23 16:25 EDT Lab Reportson 11-30-2022 Lab Reports [id number]#[id number]:127 Normal [facility] UroVysion Fish and Urine Cyt o ([facility])on 11-13-2022 UVFISH & UC Diagnosis Info Invalid Interpretation Code [facility] Comment on above: Result Comment: [...] 170 Hematuria: Gross Description Site ID:A color Wilcox fixative Alcohol Received 80 mls of clear orange fluid with the patient's name and, Urine on the vial. Electronically signed by : on: 11/13/2022 08:34:30 Performed By: #### 1 [id number] ####[facility] [address] [place] [address] Consent for Procedure/Surger yon 11-05-2022 Consent for Procedure/Surge ry [id number]#[id number]:127 Normal [facility] UroVysion Fish and Urine Cyt o ([facility])on 11-04-2022 [facility] Method of Extraction Bladder Urine Normal [facility] Comment on above: Performed By: #### [id number] ####[facility] [address] [place] [address] [facility] Number of Jars 1 Invalid Interpretation Code [facility] Comment on above: Performed By: #### [id number] ####[facility] [address] [place] [address] [facility] Specimen Urine Normal [facility] Comment on above: Performed By: #### [id number] ####[facility] [address] [place] [address] [facility] Type of Service Global Normal [facility] Comment on above: Performed By: #### [id number] ####[facility] [address] [place] [address] Urology Office/Clinic Noteon 11-04-2022 Urology Office/Clinic Note [...] blood and clots on 09/12/22. Went to [facility], they did urine cx. Was not [...] Urology [address], [place] [id number]- Additional Instructions: f/u 4 mos Patient Education [...] of lower (more content not included)... Normal [facility] Comment on above: Result Comment: Electronically Signed By : Puneet BRIGGS MD\.br\Date and Time Signed: 11/04/22 15:08 EST\.br\Electronically Co-Signed By: Soha Li\.br\Date and Time Co-Signed: 11/04/22 15:05 EST Patient Educationon 02-06-20 23 Patient Education Urology Benign Prostatic Hyperplasia Benign [...] Follow these instructions at home: ? Take ksew-fgv-neoxkpz and prescription medicines only as told by [...] You d (more content not included)... Normal [facility] Pre-Certification Formon Pre-Certificati on Form [id number]#[id number]:127 Normal [facility] ER URINE PROFILEon 2 Bilirubin Ql (U) Negative Normal NEGATIVE [facility] Comment on above: Performed By: #### NICOL ERUR #### [facility] [address] [place] [address] Dr. Santhosh Francois Clarity (U) CLEAR Normal CLEAR [facility] Comment on above: Performed By: #### NICOL ERUR #### [facility] [address] [place] [address] Dr. Santhosh Francois Color (U) LT. YELLOW Normal YELLOW [facility] Comment on above: Performed By: #### NICOL ERUR #### [facility] [address] [place] [address] Dr. Santhosh PALACIOS A micrscopic examina tion will be performed if indicated. Normal [facility] Comment on above: Performed By: #### NICOL ERUR #### [facility] [address] [place] [address] Dr. Santhosh Francois Glucose Ql (U) Negative Normal NEGATIVE [facility] Comment on above: Performed By: #### NICOL ERUR #### [facility] [address] [place] [address] Dr. Santhosh Francois Hemoglobin Ql (U) LARGE Abnormal NEGATIVE [facility] Comment on above: Performed By: #### NICOL ERUR #### [facility] [address] [place] [address] Dr. Santhosh Francois Ketones Ql (U) Negative Normal NEGATIVE [facility] Comment on above: Performed By: #### NICOL ERUR #### [facility] [address] [place] [address] Dr. Santhosh Francois LEUKOCYTES Negative Normal NEGATIVE [facility] Comment on above: Performed By: #### NICOL ERUR #### [facility] [address] [place] [address] Dr. Santhosh Francois Nitrite Ql (U) Negative Normal NEGATIVE [facility] Comment on above: Performed By: #### NICOL, ERUR #### [facility] [address] [place] [address] Dr. Santhosh Francois pH (U) 5.0 [pH] Normal 5-9 [facility] Comment on above: Performed By: #### NICOL, ERUR #### [facility] [address] [place] [address] Dr. Santhosh Francois SPEC GRAVITY 1.010 Normal 1.005-<=1.02 5 [facility] Comment on above: Performed By: #### NICOL ERUR #### [facility] [address] [place] [address] Dr. Santhosh Francois UA PROTEIN TRACE Normal NEGATIVE/ TRACE [facility] Comment on above: Performed By: #### NICOL ERUR #### [facility] [address] [place] [address] Dr. Santhosh Francois UR MICRO IND INDICATED Normal [facility] Comment on above: Performed By: #### NICOL ERUR #### [facility] [address] [place] [address] Dr. Santhosh Francois Urobilinogen Qn (U) 0.2 {Malini'U}/dL Normal 0.2 - 1.0 [facility] Comment on above: Performed By: #### NICOL ERUR #### [facility] [address] [place] [address] Dr. Santhosh Francois URINE MICROSCOPIC ONLYon BACTERIA NONE SEEN Normal NONE SEEN [facility] Comment on above: Performed By: #### CBC #### [facility] [address] [place] [address] Dr. Santhosh Francois Bacteria identified Cx Nom (U) NOT INDICATED Normal [facility] Comment on above: Performed By: #### CBC #### [facility] [address] [place] [address] Dr. Santhosh Francois CAST NONE SEEN Normal NONE SEEN [facility] Comment on above: Performed By: #### CBC #### [facility] [address] [place] [address] Dr. Santhosh Francois Crystals LM Nom (Urine sed) NONE SEEN Normal NONE SEEN [facility] Comment on above: Performed By: #### CBC #### [facility] [address] [place] [address] Dr. Santhosh Francois Epithelial cells LM Ql (Urine sed) RARE Normal NONE SEEN /RARE [facility] Comment on above: Performed By: #### CBC #### [facility] [address] [place] [address] Dr. Santhosh Francois MUCOUS NONE SEEN Normal NONE SEEN [facility] Comment on above: Performed By: #### CBC #### [facility] [address] [place] [address] Dr. Santhosh Francois RBC 10-20 Abnormal 0-2 [facility] Comment on above: Performed By: #### CBC #### [facility] [address] [place] [address] Dr. Santhosh Francois WBC NONE SEEN Normal NONE SEEN [facility] Comment on above: Performed By: #### CBC #### [facility] [address] [place] [address] Dr. Santhosh Francois Lab Reportson 05-20-2022 Lab Reports [id number]:127 Normal [facility] Ambulatory Visit Summaryon 0 05-19-2022 Ambulatory Visit Summary SHABNAM BURGESS :1955 Visit Date:05/19/2022 Ambulatory Visit Instructions Your Diagnosis Prostate cancer Chronic prostatitis BPH with urinary obstruction Kidney stones BMI 36.0-36.9,adult Other obstructive and reflux uropathy Tests Performed Urnls Dip Stick Auto w/o Microscopy POC 85114 Your Care Team Attending Physician - ANAHI MCDONALD, Puneet Ross Primary Care Physician - PARESH FORD, PARK Banuelos This Is Your Medications List Contact prescribing [...] Follow these instructions at home: ? Take psci-nei-nmxcwjq and prescription medicines only as told by [...] 03/15/2013 Document Revised: 08/27/2018 Document Reviewed: 06/04/2017 [employer] Patient Education ? 2020 [email or web address]. Nutrition Calorie Counting for Weight Loss Calories [...] not leave (more content not included)... Normal [facility] Urology Office/Clinic Noteon 05-19-2022 Urology [...] MCDONALD, Puneet Ross, DELANEY In [address] [facility] [place] [id number] Business (1) Additional Instructions: w/PSA Patient Education Prostatitis, Ytnb-du-Qtep Calorie Counting for Weight Loss Carey Willett [...] Wine, Daily, (more content not included)... Normal [facility] Comment on above: Result Comment: Electronically Signed By : Puneet BRIGGS MD\.br\Date and Time Signed: 05/19/22 16:36 EDT\.br\Electronically Co-Signed By: Carey Gonzalez\.br\Date and Time Co-Signed: 05/19/22 16:34 EDT LIPID PROFILEon 05-16-2022 CHOL-HDL RATIO NORM SEE BELOW Normal [facility] Comment on above: Result Comment: 3.3 - 4.4 LOW RISK 4.4 - 7.1 AVERAGE RISK 7.1 - 11.0 MODERATE RISK >11.0 HIGH RISK Performed By: #### C BC #### [facility] [address] [address] [address] Santhosh Francois Cholesterol [Mass/Vol] 58 mg/dL Normal <=200 [facility] Comment on above: Performed By: #### CBC #### [facility] [address] [address] [address] Santhosh Francois Cholesterol in HDL [Mass/Vol] 38 mg/dL Critically low 40-60 [facility] Comment on above: Performed By: #### CBC #### [facility] [address] [address] [address] Santhosh Francois Cholesterol in LDL [Mass/Vol] 14.0 mg/dL Normal [facility] Comment on above: Performed By: #### CBC #### [facility] [address] [address] [address] Santhosh Francois Cholesterol.tot al/Cholesterol in HDL [Mass ratio] 1.5 {ratio} Normal [facility] Comment on above: Performed By: #### CBC #### [facility] [address] [address] [address] Santhosh Francois HDL NORMAL > or = 60 mg/dl - LO W CARDIOVASCULAR RISK <40 mg/dl - HIGH CARDIOVASCULAR RISK Normal [facility] Comment on above: Performed By: #### CBC #### [facility] [address] [address] [address] Santhosh Francois LDL CALC NORMAL SEE BELOW Normal [facility] Comment on above: Result Comment: <100 mg/dl OPTIMAL 100 - 129 mg/dl NEAR OR ABOVE OPTIMAL 130 - 159 mg/dl BORDERLINE HIGH 160 - 189 mg/dl HIGH >190 mg/dl VERY HIGH Performed By: #### C BC #### [facility] [address] [address] [address] Santhosh Francois Triglyceride [Mass/Vol] 30 mg/dL Normal <=150 [facility] Comment on above: Performed By: #### CBC #### [facility] [address] [address] [address] Santhosh Francois VLDL CALC 6.0 mg/dL Normal [facility] Comment on above: Performed By: #### CBC #### [facility] [address] [address] [address] Santhosh Francois PROF 14(COMP METB)on 022 Albumin [Mass/Vol] 3.6 g/dL Normal 3.4-5.0 [facility] Comment on above: Performed By: #### CBC #### [facility] [address] [place] [address] Dr. Santhosh Francois Albumin/Globuli n [Mass ratio] 1.1 {ratio} Normal [facility] Comment on above: Performed By: #### CBC #### [facility] [address] [address] [address] Santhosh Francois ALP [Catalytic activity/Vol] 145 U/L Critically high 46-116 [facility] Comment on above: Performed By: #### CBC #### [facility] [address] [address] [address] Santhosh Francois ALT [Catalytic activity/Vol] 102 U/L Critically high 16-63 [facility] Comment on above: Performed By: #### CBC #### [facility] [address] [address] [address] Santhosh Francois Anion gap [Moles/Vol] 12.7 mmol/L Normal [facility] Comment on above: Performed By: #### CBC #### [facility] [address] [address] [address] Santhosh Francois AST [Catalytic activity/Vol] 68 U/L Critically high 15-37 [facility] Comment on above: Performed By: #### CBC #### [facility] [address] [address] [address] Santhosh Francois Bilirubin [Mass/Vol] 1.0 mg/dL Normal 0.2-1.0 [facility] Comment on above: Performed By: #### CBC #### [facility] [address] [place] [address] Dr. Santhosh Francois Calcium [Mass/Vol] 8.0 mg/dL Critically low 8.5-10.1 [facility] Comment on above: Performed By: #### CBC #### [facility] [address] [place] [address] Dr. Santhosh Francois Chloride [Moles/Vol] 111 mmol/L Critically high 98-107 [facility] Comment on above: Performed By: #### CBC #### [facility] [address] [place] [address] Dr. Santhosh Francois CO2 [Moles/Vol] 20.6 mmol/L Critically low 21.0-32.0 [facility] Comment on above: Performed By: #### CBC #### [facility] [address] [place] [address] Dr. Santhosh Francois Creatinine [Mass/Vol] 0.96 mg/dL Normal 0.70-1.30 [facility] Comment on above: Performed By: #### CBC #### [facility] [address] [place] [address] Dr. Santhosh Francois EGFR-AF TAIWANESE >60 Normal >=60 [facility] Comment on above: Performed By: #### CBC #### [facility] [address] [place] [address] Dr. Santhosh Francois EGFR-NON AF TAIWANESE >60 Normal >=60 [facility] Comment on above: Performed By: #### CBC #### [facility] [address] [place] [address] Dr. Santhosh Francois Globulin (S) [Mass/Vol] 3.2 g/dL Normal [facility] Comment on above: Performed By: #### CBC #### [facility] [address] [place] [address] Dr. Santhosh Francois Glucose [Mass/Vol] 88 mg/dL Normal 74-106 [facility] Comment on above: Performed By: #### CBC #### [facility] [address] [address] [address] Santhosh Francois Potassium [Moles/Vol] 4.3 mmol/L Normal 3.5-5.1 [facility] Comment on above: Performed By: #### CBC #### [facility] [address] [place] [address] Dr. Santhosh Francois Protein [Mass/Vol] 6.8 g/dL Normal 6.4-8.2 [facility] Comment on above: Performed By: #### CBC #### [facility] [address] [place] [address] Dr. Santhosh Francois Sodium [Moles/Vol] 140 mmol/L Normal 136-145 [facility] Comment on above: Performed By: #### CBC #### [facility] [address] [place] [address] Dr. Santhosh Francois Urea nitrogen [Mass/Vol] 26.0 mg/dL Critically high 7.0-18.0 [facility] Comment on above: Performed By: #### CBC #### [facility] [address] [place] [address] Dr. Santhosh Francois Urea nitrogen/Creati nine [Mass ratio] 27.1 mg/mg Normal [facility] Comment on above: Performed By: #### CBC #### [facility] [address] [place] [address] Dr. Santhosh Francois ED Note-Physicianon 05-07-20 ED Note-Physician [id number]:127 Normal [facility] RAD - CT Reporton 05-06-2022 RAD - CT Report [id number]:127 Normal [facility] CBC AUTO DIFFon 04-30-2022 BASO # 0.0 103/ul Normal 0.0-0.1 [facility] Comment on above: Performed By: #### CBC #### [facility] [address] [address] [address] Santhosh Francois Basophils/100 WBC (Bld) 0.5 % Normal 0.2-2.0 [facility] Comment on above: Performed By: #### CBC #### [facility] [address] [address] [address] Santhosh Francois EO # 0.2 103/ul Normal 0.0-0.7 [facility] Comment on above: Performed By: #### CBC #### [facility] [address] [address] [address] Santhosh Francois Eosinophils/100 WBC (Bld) 2.9 % Normal 0.9-7.0 [facility] Comment on above: Performed By: #### CBC #### [facility] [address] [address] [address] Santhosh Francois Erythrocyte distribution width (RBC) [Ratio] 14.9 % Normal 11.0-15.0 [facility] Comment on above: Performed By: #### CBC #### [facility] [address] [address] [address] Santhosh Francois Hematocrit (Bld) [Volume fraction] 39.1 % Critically low 42.0-54.0 [facility] Comment on above: Performed By: #### CBC #### [facility] [address] [address] [address] Santhosh Francois Hemoglobin (Bld) [Mass/Vol] 12.2 g/dL Critically low 14.0-18.0 [facility] Comment on above: Performed By: #### CBC #### [facility] [address] [place] [address] Dr. Santhosh Francois IG # 0.01 10e3/ul Normal 0.00-0.03 [facility] Comment on above: Performed By: #### CBC #### [facility] [address] [place] [address] Dr. Santhosh Francois IG % 0.2 % Normal 0.0-0.5 [facility] Comment on above: Performed By: #### CBC #### [facility] [address] [place] [address] Dr. Santhosh Francois LYMPH # 2.0 103/ul Normal 1.2-3.8 [facility] Comment on above: Performed By: #### CBC #### [facility] [address] [place] [address] Dr. Santhosh Francois Lymphocytes/100 WBC (Bld) 32.6 % Normal 20.5-60.0 [facility] Comment on above: Performed By: #### CBC #### [facility] [address] [place] [address] Dr. Santhosh Francois MANUAL DIFF REQ NO Normal [facility] Comment on above: Performed By: #### CBC #### [facility] [address] [place] [address] Dr. Santhosh Francois MCH (RBC) [Entitic mass] 29.9 pg Normal 25.9-34.0 [facility] Comment on above: Performed By: #### CBC #### [facility] [address] [place] [address] Dr. Santhosh Francois MCHC (RBC) [Mass/Vol] 31.2 g/dL Normal 29.9-35.2 [facility] Comment on above: Performed By: #### CBC #### [facility] [address] [place] [address] Dr. Santhosh Francois MCV (RBC) [Entitic vol] 95.8 fL Critically high 80.0-94.0 [facility] Comment on above: Performed By: #### CBC #### [facility] [address] [place] [address] Dr. Santhosh Francois MONO # 0.5 103/ul Normal 0.3-0.8 [facility] Comment on above: Performed By: #### CBC #### [facility] [address] [place] [address] Dr. Santhosh Francois Monocytes/100 WBC (Bld) 7.9 % Normal 1.7-12.0 [facility] Comment on above: Performed By: #### CBC #### [facility] [address] [place] [address] Dr. Santhosh Francois NEUT # 3.5 103/ul Normal 1.4-6.5 [facility] Comment on above: Performed By: #### CBC #### [facility] [address] [place] [address] Dr. Santhosh Francois Neutrophils/100 WBC (Bld) 55.9 % Normal 43.0-75.0 [facility] Comment on above: Performed By: #### CBC #### [facility] [address] [place] [address] Dr. Santhosh Francois Platelet mean volume (Bld) [Entitic vol] 10.6 fL Normal 9.5-13.5 [facility] Comment on above: Performed By: #### CBC #### [facility] [address] [place] [address] Dr. Santhosh Francois PLT 125 103/ul Critically low 150-450 [facility] Comment on above: Performed By: #### CBC #### [facility] [address] [place] [address] Dr. Santhosh Francois RBC 4.08 106/ul Critically low 4.70-6.10 [facility] Comment on above: Performed By: #### CBC #### [facility] [address] [place] [address] Dr. Santhosh Francois WBC 6.2 103/ul Normal 4.0-11.0 [facility] Comment on above: Performed By: #### CBC #### [facility] [address] [place] [address] ABD/PELVIS WO CONon [...] CASSIDY DILLON Date: 2022-04-30 18:05 Normal [facility] CULTURE URINEon 04-30-2022 CULTURE URINE Culture Observations : NO GROWTH. Normal [facility] Comment on above: Performed By: #### URCX #### [facility] [address] [address] [address] Santhosh Francois ER URINE PROFILEon 2 Bilirubin Ql (U) Unable to perform testing due to color interference. Abnormal NEGATIVE [facility] Comment on above: Performed By: #### ERUR, UMICRO #### [facility] [address] [address] [address] Santhosh Francois Clarity (U) TURBID Abnormal CLEAR [facility] Comment on above: Performed By: #### ERUR, UMICRO #### [facility] [address] [place] [address] Dr. Santhosh Francois Color (U) RED Abnormal YELLOW [facility] Comment on above: Performed By: #### ERUR, UMICRO #### [facility] [address] [address] [address] Santhosh Francois ERUAHD A micrscopic examina tion will be performed if indicated. Normal [facility] Comment on above: Performed By: #### ERUR, UMICRO #### [facility] [address] [place] [address] Dr. Santhosh Francois Glucose Ql (U) Unable to perform te sting due to color interference. Abnormal NEGATIVE [facility] Comment on above: Performed By: #### ERUR, UMICRO #### [facility] [address] [place] [address] Dr. Santhosh Francois Hemoglobin Ql (U) Unable to perform testing due to color interference. Abnormal NEGATIVE [facility] Comment on above: Performed By: #### ERUR, UMICRO #### [facility] [address] [place] [address] Dr. Santhosh Francois Ketones Ql (U) Unable to perform te sting due to color interference. Abnormal NEGATIVE [facility] Comment on above: Performed By: #### ERUR, UMICRO #### [facility] [address] [place] [address] Dr. Santhosh Francois LEUKOCYTES Unable to perform te sting due to color interference. Abnormal NEGATIVE [facility] Comment on above: Performed By: #### ERUR, UMICRO #### [facility] [address] [address] [address] Santhosh Francois Nitrite Ql (U) Unable to perform te sting due to color interference. Abnormal NEGATIVE [facility] Comment on above: Performed By: #### ERUR, UMICRO #### [facility] [address] [address] [address] Santhosh Francois pH (U) 6.0 [pH] Normal 5-9 [facility] Comment on above: Performed By: #### ERUR, UMICRO #### [facility] [address] [address] [address] Santhosh Francois SPEC GRAVITY 1.025 Normal 1.005-<=1.02 5 [facility] Comment on above: Performed By: #### ERUR, UMICRO #### [facility] [address] [place] [address] Dr. Santhosh Francois UA PROTEIN Unable to perform te sting due to color interference. Normal NEGATIVE/ TRACE [facility] Comment on above: Performed By: #### ERUR, UMICRO #### [facility] [address] [place] [address] Dr. Santhosh Francois UR MICRO IND INDICATED Normal [facility] Comment on above: Performed By: #### CORRINAR, UMICRO #### [facility] [address] [place] [address] Dr. Santhosh Francois UROBILINOGEN Unable to perform te sting due to color interference. Normal 0.2 - 1.0 [facility] Comment on above: Performed By: #### SKYLAR, UMICRO #### [facility] [address] [place] [address] Dr. Santhosh Francois PROF CHEM 8 (BAS METB)on Anion gap [Moles/Vol] 12.6 mmol/L Normal [facility] Comment on above: Performed By: #### BMP #### [facility] [address] [place] [address] Dr. Santhosh Francois Calcium [Mass/Vol] 7.7 mg/dL Critically low 8.5-10.1 [facility] Comment on above: Performed By: #### BMP #### [facility] [address] [place] [address] Dr. Santhosh Francois Chloride [Moles/Vol] 114 mmol/L Critically high 98-107 [facility] Comment on above: Performed By: #### BMP #### [facility] [address] [place] [address] Dr. Santhosh Francois CO2 [Moles/Vol] 21.1 mmol/L Normal 21.0-32.0 [facility] Comment on above: Performed By: #### BMP #### [facility] [address] [address] [address] Santhosh Francois Creatinine [Mass/Vol] 1.12 mg/dL Normal 0.70-1.30 [facility] Comment on above: Performed By: #### BMP #### [facility] [address] [address] [address] Santhosh Francois EGFR-AF TAIWANESE >60 Normal >=60 [facility] Comment on above: Performed By: #### BMP #### [facility] [address] [address] [address] Santhosh Francois EGFR-NON AF TAIWANESE >60 Normal >=60 [facility] Comment on above: Performed By: #### BMP #### [facility] [address] [place] [address] Dr. Santhosh Francois Glucose [Mass/Vol] 90 mg/dL Normal 74-106 [facility] Comment on above: Performed By: #### BMP #### [facility] [address] [place] [address] Dr. Santhosh Francois Potassium [Moles/Vol] 3.7 mmol/L Normal 3.5-5.1 [facility] Comment on above: Performed By: #### BMP #### [facility] [address] [place] [address] Dr. Santhosh Francois Sodium [Moles/Vol] 144 mmol/L Normal 136-145 [facility] Comment on above: Performed By: #### BMP #### [facility] [address] [place] [address] Dr. Santhosh Francois Urea nitrogen [Mass/Vol] 23.0 mg/dL Critically high 7.0-18.0 [facility] Comment on above: Performed By: #### BMP #### [facility] [address] [place] [address] Dr. Santhosh Francois Urea nitrogen/Creati nine [Mass ratio] 20.5 mg/mg Normal [facility] Comment on above: Performed By: #### BMP #### [facility] [address] [place] [address] Dr. Santhosh Francois URINE MICROSCOPIC ONLYon BACTERIA NONE SEEN Normal NONE SEEN [facility] Comment on above: Performed By: #### SKYLAR UMICRO #### [facility] [address] [place] [address] Dr. Santhosh Francois Bacteria identified Cx Nom (U) NOT INDICATED Normal [facility] Comment on above: Performed By: #### SKYLAR UMICRO #### [facility] [address] [place] [address] Dr. Santhosh Francois CAST NONE SEEN Normal NONE SEEN [facility] Comment on above: Performed By: #### SKYLAR UMICRO #### [facility] [address] [place] [address] Dr. Santhosh Francois Crystals LM Nom (Urine sed) NONE SEEN Normal NONE SEEN [facility] Comment on above: Performed By: #### SKYLAR UMICRO #### [facility] [address] [place] [address] Dr. Santhosh Farncois Epithelial cells LM Ql (Urine sed) NONE SEEN Normal NONE SEEN /RARE [facility] Comment on above: Performed By: #### SKYLAR UMICRO #### [facility] [address] [place] [address] Dr. Santhosh Francois MUCOUS NONE SEEN Normal NONE SEEN [facility] Comment on above: Performed By: #### SKYLAR UMICRO #### [facility] [address] [place] [address] Dr. Santhosh Francois RBC (U) [#/Vol] /uL Abnormal 0-2 [facility] Comment on above: Performed By: #### SKYLAR UMICRO #### [facility] [address] [place] [address] Dr. Santhosh Francois WBC 10-20 Abnormal NONE SEEN [facility] Comment on above: Performed By: #### SKYLAR UMICRO #### [facility] [address] [place] [address] Dr. Santhosh Francois CBC AUTO DIFFon 03-07-2022 BASO # 0.1 103/ul Normal 0.0-0.1 [facility] Comment on above: Performed By: #### CBC #### [facility] [address] [place] [address] Dr. Santhosh Francois Basophils/100 WBC (Bld) 0.8 % Normal 0.2-2.0 [facility] Comment on above: Performed By: #### CBC #### [facility] [address] [place] [address] Dr. Santhosh Francois EO # 0.1 103/ul Normal 0.0-0.7 [facility] Comment on above: Performed By: #### CBC #### [facility] [address] [place] [address] Dr. Santhosh Francois Eosinophils/100 WBC (Bld) 1.9 % Normal 0.9-7.0 [facility] Comment on above: Performed By: #### CBC #### [facility] [address] [place] [address] Dr. Santhosh Francois Erythrocyte distribution width (RBC) [Ratio] 16.4 % Critically high 11.0-15.0 [facility] Comment on above: Performed By: #### CBC #### [facility] [address] [place] [address] Dr. Santhosh Francois Hematocrit (Bld) [Volume fraction] 43.0 % Normal 42.0-54.0 [facility] Comment on above: Performed By: #### CBC #### [facility] [address] [place] [address] Dr. Santhosh Francois Hemoglobin (Bld) [Mass/Vol] 13.4 g/dL Critically low 14.0-18.0 [facility] Comment on above: Performed By: #### CBC #### [facility] [address] [place] [address] Dr. Santhosh Francois IG # 0.02 10e3/ul Normal 0.00-0.03 [facility] Comment on above: Performed By: #### CBC #### [facility] [address] [place] [address] Dr. Santhosh Francois IG % 0.3 % Normal 0.0-0.5 [facility] Comment on above: Performed By: #### CBC #### [facility] [address] [place] [address] Dr. Santhosh Francois LYMPH # 1.8 103/ul Normal 1.2-3.8 [facility] Comment on above: Performed By: #### CBC #### [facility] [address] [place] [address] Dr. Santhosh Francois Lymphocytes/100 WBC (Bld) 29.2 % Normal 20.5-60.0 [facility] Comment on above: Performed By: #### CBC #### [facility] [address] [place] [address] Dr. Santhosh Francois MANUAL DIFF REQ NO Normal [facility] Comment on above: Performed By: #### CBC #### [facility] [address] [place] [address] Dr. Santhosh Francois MCH (RBC) [Entitic mass] 30.5 pg Normal 25.9-34.0 [facility] Comment on above: Performed By: #### CBC #### [facility] [address] [place] [address] Dr. Santhosh Francois MCHC (RBC) [Mass/Vol] 31.2 g/dL Normal 29.9-35.2 [facility] Comment on above: Performed By: #### CBC #### [facility] [address] [place] [address] Dr. Santhosh Francois MCV (RBC) [Entitic vol] 97.9 fL Critically high 80.0-94.0 [facility] Comment on above: Performed By: #### CBC #### [facility] [address] [place] [address] Dr. Santhosh Francois MONO # 0.4 103/ul Normal 0.3-0.8 [facility] Comment on above: Performed By: #### CBC #### [facility] [address] [place] [address] Dr. Santhosh Francois Monocytes/100 WBC (Bld) 6.3 % Normal 1.7-12.0 [facility] Comment on above: Performed By: #### CBC #### [facility] [address] [address] [address] Santhosh Francois NEUT # 3.8 103/ul Normal 1.4-6.5 [facility] Comment on above: Performed By: #### CBC #### [facility] [address] [address] [address] Santhosh Francois Neutrophils/100 WBC (Bld) 61.5 % Normal 43.0-75.0 [facility] Comment on above: Performed By: #### CBC #### [facility] [address] [address] [address] Santhosh Francois Platelet mean volume (Bld) [Entitic vol] 10.5 fL Normal 9.5-13.5 [facility] Comment on above: Performed By: #### CBC #### [facility] [address] [place] [address] Dr. Santhosh Francois PLT 148 103/ul Critically low 150-450 [facility] Comment on above: Performed By: #### CBC #### [facility] [address] [place] [address] Dr. Santhosh Francois RBC 4.39 106/ul Critically low 4.70-6.10 [facility] Comment on above: Performed By: #### CBC #### [facility] [address] [place] [address] Dr. Santhosh Francois WBC 6.2 103/ul Normal 4.0-11.0 [facility] Comment on above: Performed By: #### CBC #### [facility] [address] [address] [address] Santhosh Francois IRONon 03-07-2022 Iron [Mass/Vol] 125.0 ug/dL Normal 65.0-175.0 [facility] Comment on above: Performed By: #### IRON #### [facility] [address] [place] [address] Dr. Santhosh Francois CBC AUTO DIFFon 12-03-2021 BASO # 0.0 103/ul Normal 0.0-0.1 [facility] Comment on above: Performed By: #### CBC #### [facility] [address] [place] [address] Dr. Santhosh Francois Basophils/100 WBC (Bld) 0.7 % Normal 0.2-2.0 [facility] Comment on above: Performed By: #### CBC #### [facility] [address] [place] [address] Dr. Santhosh Francois EO # 0.2 103/ul Normal 0.0-0.7 [facility] Comment on above: Performed By: #### CBC #### [facility] [address] [place] [address] Dr. Santhosh Francois Eosinophils/100 WBC (Bld) 3.1 % Normal 0.9-7.0 [facility] Comment on above: Performed By: #### CBC #### [facility] [address] [place] [address] Dr. Santhosh Francois Hematocrit (Bld) [Volume fraction] 40.4 % Critically low 42.0-54.0 [facility] Comment on above: Performed By: #### CBC #### [facility] [address] [place] [address] Dr. Santhosh Francois Hemoglobin (Bld) [Mass/Vol] 11.5 g/dL Critically low 14.0-18.0 [facility] Comment on above: Performed By: #### CBC #### [facility] [address] [place] [address] Dr. Santhosh Francois IG # 0.01 10e3/ul Normal 0.00-0.03 [facility] Comment on above: Performed By: #### CBC #### [facility] [address] [place] [address] Dr. Santhosh Francois IG % 0.2 % Normal 0.0-0.5 [facility] Comment on above: Performed By: #### CBC #### [facility] [address] [place] [address] Dr. Santhosh Francois LYMPH # 2.0 103/ul Normal 1.2-3.8 [facility] Comment on above: Performed By: #### CBC #### [facility] [address] [place] [address] Dr. Santhosh Francois Lymphocytes/100 WBC (Bld) 33.9 % Normal 20.5-60.0 [facility] Comment on above: Performed By: #### CBC #### [facility] [address] [place] [address] Dr. Santhosh Francois MANUAL DIFF REQ NO Normal [facility] Comment on above: Performed By: #### CBC #### [facility] [address] [place] [address] Dr. Santhosh Francois MCH (RBC) [Entitic mass] 24.1 pg Critically low 25.9-34.0 [facility] Comment on above: Performed By: #### CBC #### [facility] [address] [place] [address] Dr. Santhosh Francois MCHC (RBC) [Mass/Vol] 28.5 g/dL Critically low 29.9-35.2 [facility] Comment on above: Performed By: #### CBC #### [facility] [address] [place] [address] Dr. Santhosh Francois MCV (RBC) [Entitic vol] 84.5 fL Normal 80.0-94.0 [facility] Comment on above: Performed By: #### CBC #### [facility] [address] [place] [address] Dr. Santhosh Francois MONO # 0.4 103/ul Normal 0.3-0.8 [facility] Comment on above: Performed By: #### CBC #### [facility] [address] [place] [address] Dr. Santhosh Francois Monocytes/100 WBC (Bld) 7.7 % Normal 1.7-12.0 [facility] Comment on above: Performed By: #### CBC #### [facility] [address] [place] [address] Dr. Santhosh Francois NEUT # 3.1 103/ul Normal 1.4-6.5 [facility] Comment on above: Performed By: #### CBC #### [facility] [address] [place] [address] Dr. Santhosh Francois Neutrophils/100 WBC (Bld) 54.4 % Normal 43.0-75.0 [facility] Comment on above: Performed By: #### CBC #### [facility] [address] [address] [address] Santhosh Francois Platelet mean volume (Bld) [Entitic vol] 10.0 fL Normal 9.5-13.5 [facility] Comment on above: Performed By: #### CBC #### [facility] [address] [address] [address] Santhosh Francois PLT 191 103/ul Normal 150-450 [facility] Comment on above: Performed By: #### CBC #### [facility] [address] [address] [address] Santhosh Francois RBC 4.78 106/ul Normal 4.70-6.10 [facility] Comment on above: Performed By: #### CBC #### [facility] [address] [place] [address] Dr. Santhosh Francois WBC 5.8 103/ul Normal 4.0-11.0 [facility] Comment on above: Performed By: #### CBC #### [facility] [address] [place] [address] Dr. Santhosh Francois MR prostate wo/w conon 09-17 MR prostate wo/w con [facility] [address] MRI Report Signed Patient: Shabnam Burgess MR#: [id number] : 1955 Acct:[id number] Age/Sex: 65 / M ADM Date: 09/16/21 Loc: Room: Type: [facility] Attending Dr: Puneet Briggs MD Ordering Provider: [...] AM COT by: Tomy Garza MD Diplomate, [employer] Report Completed: Sep 17, 2021 10:46:46 AM COT This transmission is proprietary, privileged and confidential. It is intended to be communication only for the use of the addressee; access to this message by anyone else is unaut Transcribed By: 09/17/21 1348 Dictated By: NON STAFF 09/17/21 1046 Signed By: 09/17/21 1349 [facility] Blood Urea Nitrogenon 2020 Urea nitrogen [Mass/Vol] 21 mg/dL Normal 9-23 [facility] Comment on above: Order Comment: STAT FOR MRI Performed By: #### C REAT, BUN #### [address] Creatinineon 09-03-2021 Creatinine [Mass/Vol] 1.01 mg/dL Normal 0.64-1.27 [facility] Comment on above: Order Comment: STAT FOR MRI Performed By: #### C REAT, BUN #### [facility] [address] [place] [address] [place] [facility] 90.06 [facility] Comment on above: Order Comment: STAT FOR MRI Result Comment: PERF ORMED BY: [place] [address] PATHOLOGIST AQUATIC LABORER TONNY ZHOU M.D. Performed By: #### C REAT, BUN #### [facility] [address] [place] [address] Estimated GFR ( Teresita > 60 [facility] Comment on above: Order Comment: STAT FOR MRI Result Comment: GFR estimated reference range: According to KDOQI guidelines, <60 ml/min/1.73m2 is sufficient to diagnose a patient with chronic kidney disease. Performed By: #### C REAT, BUN #### [facility] [address] [place] [address] [place] Estimated GFR (Non- Am > 60 [facility] Comment on above: Order Comment: STAT FOR MRI Performed By: #### C REAT, BUN #### [facility] [address] [id number] [facility] Ironon 04-15-2019 Iron [Mass/Vol] 22 ug/dL Low 59-158 [facility] Comment on above: Performed By: #### CP #### [facility] [address] [place], [place] [id number] Record Librarian: Frank Mercado MD #### B12, FE #### [address] [address] Record Librarian: Rainer Araujo MD Vitamin B12on 04-15-2019 Cobalamin (Vitamin B12) [Mass/Vol] 1062 pg/mL Normal 232-1245 [facility] Comment on above: Performed By: #### CP #### [facility] [address] [place] [address] Dr. [place], [place] [id number] Record Librarian: Frank Mercado MD #### B12, FE #### [address] [address] Record Librarian: Rainer Araujo MD Comp Metabolic Profon 2018 Albumin [Mass/Vol] 4.2 g/dL Normal 3.5-5.2 [facility] Comment on above: Performed By: #### CP #### [facility] [address] [place] [address] Dr. [place], [place] [phone] Record Librarian: Frank Mercado MD #### B12, FE #### [address] [place] [address] Record Librarian: Rainer Araujo MD Albumin/Globuli n [Mass ratio] 1.6 {ratio} Normal 1.0-2.5 [facility] Comment on above: Performed By: #### CP #### [facility] [address] [place] [address] Dr. [place], [place] [id number] Record Librarian: Frank Mercado MD #### B12, FE #### [address] [place], [place] [id number] Record Librarian: Rainer Araujo MD Alkaline Phos 120 U/L Normal 40-129 [facility] Comment on above: Performed By: #### CP #### [facility] [address] [place] [address] Dr. [place], [place] [id number] Record Librarian: Frank Mercado MD #### B12, FE #### [address] [id number] Record Librarian: Rainer Araujo MD Bilirubin Ql (U) 0.72 mg/dL Normal 0.3-1.2 [facility] Comment on above: Performed By: #### CP #### [address] [place] [id number] Record Librarian: Frank Mercado MD #### B12, FE #### [address] [id number] Record Librarian: Rainer Araujo MD Protein [Mass/Vol] 6.8 g/dL Normal 6.4-8.3 [facility] Comment on above: Performed By: #### CP #### [address] [place] [id number] Record Librarian: Frank Mercado MD #### B12, FE #### [address] [id number] Record Librarian: Rainer Araujo MD (cont.) [facility] Comment on above: Result Comment: Average GFR for 60-69 ye ars old: 85 mL/min/1.73sq m Chronic Kidney Disease: <60 mL/min/1.73sq m Kidney failure: <15 mL/min/1.73sq m eGFR calculated using average adult body mass. Additional eGFR calculator available at: http://www.Minteos.TouchBistro/multiple_crcl_2012.htm Performed By: #### C P #### [address] [place] [address] Record Librarian: Frank Mercado MD #### B12, FE #### [facility] [address] [place] [address] Record Librarian: Rainer Araujo MD ALT [Catalytic activity/Vol] 29 U/L Normal 5-41 [facility] Comment on above: Performed By: #### CP #### [facility] [address] [place] [address] Record Librarian: Frank Mercado MD #### B12, FE #### [address] [address] Record Librarian: Rainer rAaujo MD Anion gap [Moles/Vol] 10 mmol/L Normal [facility] Comment on above: Performed By: #### CP #### [facility] [address] [place] [id number] Record Librarian: Frank Mercado MD #### B12, FE #### [address] [address] Record Librarian: Rainer Araujo MD AST [Catalytic activity/Vol] 26 U/L Normal <40 [facility] Comment on above: Performed By: #### CP #### [facility] [address] [place] [id number] Record Librarian: Frank Mercado MD #### B12, FE #### [address] [address] Record Librarian: Rainer Araujo MD BUN/CRE Ratio 24 High 9-20 [facility] Comment on above: Performed By: #### CP #### [facility] [address] [place] [address] Record Librarian: Frank Mercado MD #### B12, FE #### [address] [address] Record Librarian: Rainer Araujo MD Calcium [Mass/Vol] 8.2 mg/dL Low 8.6-10.4 [facility] Comment on above: Performed By: #### CP #### [facility] [address] [place], [place] [phone] Record Librarian: Frank Mercado MD #### B12, FE #### [address] [address] Record Librarian: Rainer Araujo MD Chloride [Moles/Vol] 115 mmol/L High 98-107 [facility] Comment on above: Performed By: #### CP #### [facility] [address] [place] [address] Record Librarian: Frank Mercado MD #### B12, FE #### [address] [address] Record Librarian: Rainer Araujo MD CO2 [Moles/Vol] 17 mmol/L Low 20-31 [facility] Comment on above: Performed By: #### CP #### [facility] [address] [place] [address] Dr. [place], [place] [id number] Record Librarian: Frank Mercado MD #### B12, FE #### [address] [address] Record Librarian: Rainer Araujo MD Creatinine [Mass/Vol] 1.11 mg/dL Normal 0.70-1.20 [facility] Comment on above: Performed By: #### CP #### [facility] [address] [place] [address] [place] [address] Record Librarian: Frank Mercado MD #### B12, FE #### [address] [address] Record Librarian: Rainer Araujo MD GFR, Amer >60 Normal >60 [facility] Comment on above: Performed By: #### CP #### [facility] [address] [place], [place] [phone] Record Librarian: Frank Mercado MD #### B12, FE #### [address] [address] Record Librarian: Rainer Araujo MD GFR,non Amer >60 Normal >60 [facility] Comment on above: Performed By: #### CP #### [facility] [address] [place], [place] [phone] Record Librarian: Frank Mercado MD #### B12, FE #### [address] [address] Record Librarian: Rainer Araujo MD Glucose [Mass/Vol] 103 mg/dL High 70-99 [facility] Comment on above: Performed By: #### CP #### [address] [place] [address] Record Librarian: Frank Mercado MD #### B12, FE #### [address] [address] Record Librarian: Rainer Araujo MD Potassium [Moles/Vol] 4.1 mmol/L Normal 3.7-5.3 [facility] Comment on above: Performed By: #### CP #### [facility] [address] [place] [address] [place] [address] Record Librarian: Frank Mercado MD #### B12, FE #### [address] [address] Record Librarian: Rainer Araujo MD Sodium [Moles/Vol] 142 mmol/L Normal 135-144 [facility] Comment on above: Performed By: #### CP #### [facility] [address] [place] [address] [place] [address] Record Librarian: Frank Mercado MD #### B12, FE #### [address], [place] [id number] Record Librarian: Rainer Araujo MD Staging: Normal [facility] Comment on above: Result Comment: Stage 1: Some kidney dam age normal GFR Stage 2: Mild kidney damage GFR 60-89 Stage 3: Moderate kidney damage GFR 30-59 Stage 4: Severe kidney damage GFR 15-29 Stage 5: Severe kidney damage GFR <15 ESRD - chronic treatment by dialysis or transplant Performed By: #### C P #### [facility] [address] [place] [address] Dr. [place], [place] [phone] Record Librarian: Frank Mercado MD #### B12, FE #### [address] [id number] Record Librarian: Rainer Araujo MD Urea nitrogen [Mass/Vol] 27 mg/dL High 8-23 [facility] Comment on above: Performed By: #### CP #### [address] [place], [place] 0859683 Record Librarian: Frank Mercado MD #### B12, FE #### [address] [id number] Record Librarian: Rainer Araujo MD Vital Signs Date Time Vital Sign Value Performing Clinician Facility 11-04-2023 15:54-0500 Body height 177.8 cm Park Yoder POLE INCISOR OPERATOR Work Phone: [facility] 11-04-2023 15:54-0500 Body mass index (BMI) [Ratio] 34.47 kg/m2 Park Yoder POLE INCISOR OPERATOR Work Phone: [facility] 11-04-2023 15:54-0500 Body temperature 97.11 [degF] Park Yoder POLE INCISOR OPERATOR Work Phone: [facility] 11-04-2023 15:54-0500 Body weight 108.95 kg Park Yoder POLE INCISOR OPERATOR Work Phone: [facility] 11-04-2023 15:54-0500 Diastolic blood pressure 78 mm[Hg] Park Terrazasholz POLE INCISOR OPERATOR Work Phone: [facility] 11-04-2023 15:54-0500 Heart rate 66 /min Park Paresh POLE INCISOR OPERATOR Work Phone: [facility] 11-04-2023 15:54-0500 Respiratory rate 18 /min Park Paresh POLE INCISOR OPERATOR Work Phone: [facility] 11-04-2023 15:54-0500 SaO2% (BldA) [Mass fraction] 97 % Park Paresh POLE INCISOR OPERATOR Work Phone: [facility] 11-04-2023 15:54-0500 Systolic blood pressure 118 mm[Hg] Park Mikez POLE INCISOR OPERATOR Work Phone: [facility] 10-19-2023 15:01-0500 Blood Pressure Location Puneet BRIGGS [facility] 10-19-2023 15:01-0500 Diastolic blood pressure 60 mm[Hg] Puneet BRIGGS [facility] 10-19-2023 15:01-0500 Heart rate 64 /min Puneet BRIGGS [facility] 10-19-2023 15:01-0500 Respiratory rate 16 /min Puneet BRIGGS [facility] 10-19-2023 15:01-0500 Systolic blood pressure 109 mm[Hg] Puneet BRIGGS [facility] 04-13-2023 15:59-0400 Blood Pressure Location Puneet BRIGGS [facility] 04-13-2023 15:59-0400 Diastolic blood pressure 80 mm[Hg] Puneet BRIGGS [facility] 04-13-2023 15:59-0400 Heart rate 68 /min Puneet BRIGGS [facility] 04-13-2023 15:59-0400 Respiratory rate 16 /min Puneet BRIGGS [facility] 04-13-2023 15:59-0400 Systolic blood pressure 130 mm[Hg] Puneet BRIGGS [facility] 11-04-2022 14:37-0500 Blood Pressure Location Puneet BRIGGS [facility] 11-04-2022 14:37-0500 Diastolic blood pressure 69 mm[Hg] Puneet BRIGGS [facility] 11-04-2022 14:37-0500 Heart rate 68 /min Puneet BRIGGS [facility] 11-04-2022 14:37-0500 Systolic blood pressure 118 mm[Hg] Puneet BRIGGS [facility] 05-19-2022 15:59-0400 Blood Pressure Location Puneet BRIGGS [facility] 05-19-2022 15:59-0400 Diastolic blood pressure 66 mm[Hg] Puneet BRIGGS [facility] 05-19-2022 15:59-0400 Heart rate 59 /min Puneet BRIGGS [facility] 05-19-2022 15:59-0400 Respiratory rate 16 /min Puneet BRIGGS [facility] 05-19-2022 15:59-0400 Systolic blood pressure 117 mm[Hg] [facility] Encounter Date Encounter Type Care Provider Facility Start: 04-27-2024 End: 04-27-2024 ambulatory YISEL MITCHELL [facility] Start: 04-06-2024 End: 04-06-2024 ambulatory LITO GANNON Not Available Start: 03-30-2024 End: 03-30-2024 ambulatory PARK AICHHOLZ Not Available Start: 02-18-2024 End: 02-18-2024 ambulatory PARK AICHHOLZ Not Available Start: 11-04-2023 End: 11-04-2023 ambulatory PARK AICHHOLZ Not Available Start: 11-04-2023 End: 11-04-2023 Office outpatient visit 15 minutes Park Aichnicolettez POLE INCISOR OPERATOR Work Phone: [facility] Comment on above: 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); BMI 37.0-37.9, adult; Nonischemic cardiomyopathy (CMS/HCC); Primary hypertension (CMS/HCC); Chronic systolic heart failure (CMS/HCC); H/O bariatric surgery; Mixed hyperlipidemia (CMS/HCC) Start: 11-04-2023 Bamboo flowsheet Park Aichholz POLE INCISOR OPERATOR Work Phone: [facility] Start: 11-04-2023 Bamboo flowsheet Park Aichholz POLE INCISOR OPERATOR Work Phone: [facility] Start: 10-19-2023 ambulatory Puneet Dykesi ty:JAYASHREE [place] Start: 10-19-2023 End: 10-19-2023 Patient encounter procedure [facility]IGGS [facility] Start: 04-13-2023 End: 04-14-2023 ambulatory Puneetyann BRIGGS Facility:[facility] [place] Start: 04-13-2023 End: 04-13-2023 Patient encounter procedure Puneet BRIGGS [facility] [place] Start: 03-18-2023 End: 03-19-2023 ambulatory Puneet BRIGGS Facility:[facility] [place] Start: 03-18-2023 End: 03-18-2023 Patient encounter procedure Puneet BRIGGS [facility] [place] Start: 11-24-2022 ambulatory Puneet R BRIGGS Facili ty:[facility] [place] Start: 11-21-2022 End: 11-22-2022 ambulatory LILIANA YODER Facility:[facility] Start: 11-04-2022 End: 11-05-2022 ambulatory Puneetyann BRIGGS Facility:[facility] [place] Start: 11-04-2022 End: 11-04-2022 Patient encounter procedure Puneet BRIGGS [facility] Start: 09-12-2022 End: 09-12-2022 ambulatory DEANNE OBRIEN . Facility:[facility] Start: 05-19-2022 End: 05-20-2022 ambulatory Puneetyann BRIGGS Facility:[facility] [place] Start: 05-19-2022 End: 05-19-2022 Patient encounter procedure Puneet BRIGGS [facility] [place] Start: 05-16-2022 End: 05-17-[address] DOCTOR HOWE Facility:[facility] Start: 04-30-2022 End: 04-30-[address] CASSIDY DILLON Facility:[facility] Start: 03-07-2022 End: 03-08-2022 ambulatory LILIANA YODER Facility:[facility] Start: 01-01-2022 End: 01-01-2022 Patient encounter procedure Ary ARTEAGA [facility] [place] Start: 12-18-2021 End: 12-18-[address] ARY ARTEAGA . Facility:[facility] Start: 12-14-2021 ambulatory LILIANA YODER Facil ity:[facility] Start: 12-03-2021 End: 12-04-2021 ambulatory FENCE MAKING MACHINE OPERATOR PARK YODER Facility:[facility] Start: 04-14-2019 End: 04-15-2019 Patient encounter procedure PARK YODER [facility] Start: 01-28-2018 End: 01-29-2018 Ambulatory DEFAULT PHYSICIAN Facility:[facility] Procedures Date Procedure Procedure Detail Performing Clinician Start: 04-27-2024 Follow-up visit Follow-up YISEL MITCHELL Start: 11-21-[address] PUNEET BRIGGS . Comment on above: Performed By: #### PSAD #### [facility] [address] [address] [address] Santhosh Francois Start: 11-04-2022 Cystoscopy Puneet BRIGGS Start: 05-16-[address] PUNEET BRIGGS . Comment on above: Performed By: #### PSAD #### [facility] [address] [place] [address] Dr. Santhosh Francois Start: 12-18-2021 Colonoscopy Ary ARTEAGA Start: 12-18-2021 Esophagogastroduodenoscopy Ary ARTEAGA Start: 11-14-2021 MRI-US fusion guided transrectal biopsy of prostate Ary ARTEAGA Start: 03-27-2021 Transrectal biopsy of prostate using ultrasound guidance Ary ARTEAGA Start: 03-22-2020 Transurethral prostatectomy Ary ARTEAGA Start: 04-14-2019 Assay of iron PARK PARESH Start: 04-14-2019 Comprehensive metabolic panel PARK LOPEZZ Start: 04-14-2019 Cyanocobalamin vitamin b-12 PARK PICKARD Z Start: 01-12-2017 Cystoscope, device (physical object) Ary PRICEL Start: 09-28-1999 Esophagogastrostomy, antesternal or antethoracic Ary NILL Appendectomy Ary NILL Cardiac catheterization Devang mckeon NILL Cholecystectomy Ary NILL Colonoscopy Ary NILL History of radiofreq uency ablation operation for arrhythmia Ary NILL Lithotripsy Ary NILL Comment on above: x3 Repair of umbilical hernia M ritika NILL Plan of Treatment Date Care Activity Detail Author Start: 12-28-2023 Screening for malign ant neoplasm of colon [facility] Start: 05-29-2023 Influenza vaccination Influenza Vacc ine (#1) [facility] Start: 11-28-1963 Pneumococcal Vaccine : 65+ Years (1 - PCV) Pneumococcal Vaccine: 65+ Years (1 - PCV) [facility] Start: 1957 Screening for malign ant neoplasm of colon [facility] Immunizations Immunization Date Immunization Notes Care Provider Fa [facility] 08-12-2023 Influenza, High-dose Seasonal, Quadrivalent, Preservative Free Park Tatianagalindoquiana POLE INCISOR OPERATOR Work Phone: [facility] 07-29-2021 influenza virus vaccine, unspecified formulation Ary ARTEAGA [facility] [place] 02-13-2021 SARS-CoV-2 (COVID-19 ) mRNA BNT-162o1 jesse BRIGGS [facility] 01-23-2021 SARS-CoV-2 (COVID-19 ) mRNA BNT-162b2 jesse BRIGGS [facility] 09-28-2020 SARS-CoV-2 (COVID-19 ) mRNA BNT-162b2 vax Ary ARTEAGA [facility] 07-02-2020 influenza virus vaccine, unspecified formulation Ary ARTEAGA [facility] [place] Payers Date Payer Category Payer Unknown 1957 Unknown [id number] 1955 Unknown [id number] 2.16.84 [id number] 1957 Unknown [id number] 2.16.84 0.1.053863.3.579.2.593 1957 Unknown [id number] 2.16.84 0.1.309640.3.579.2.593 1957 Unknown [id number] 2.16.84 0.1.999676.3.579.2.593 1957 Unknown [id number] 2.16.84 0.1.525475.3.579.2.593 1957 Unknown [id number] 2.16.84 0.1.513172.3.579.2.593 1957 Unknown [id number] 2.16.84 0.1.892558.3.579.2.593 1957 Unknown [id number] 2.16.84 0.1.281789.3.579.2.593 1957 Unknown [id number] 2.16.84 0.1.133905.3.579.2.593 1957 Unknown [id number] 2.16.8 40.1.547350.3.579.2.727 1957 Unknown [id number] 2.16.8 40.1.429195.3.579.2.727 1957 Unknown [id number] 2.16.8 40.1.998342.3.579.2.727 1957 Unknown [id number] 2.16.8 40.1.696350.3.579.2.727 1957 Unknown [id number] 2.16.8 40.1.450351.3.579.2.727 1957 Unknown [id number] 2.16.8 40.1.347802.3.579.2.727 1957 Unknown [id number] 2.16.84 0.1.800428.3.579.2.1259 1957 Unknown [id number] 2.16.84 0.1.297944.3.579.2.1259 1957 Unknown [id number] 2.16.84 0.1.224176.3.579.2.1259 1957 Unknown [id number] 2.16.84 0.1.444504.3.579.2.1259 1957 Unknown [id number] 2.16.84 0.1.123025.3.579.2.1259 1957 Unknown [id number] 2.16.84 0.1.630501.3.579.2.1259 1957 Unknown [id number] 2.16.8 40.1.783413.3.579.2.1286 Social History Date Type Detail Facility Start: 12-06-2021 End: 10-26-2023 Tobacco smoking status Never smoked tobacco (finding) [facility] Tobacco smoking status Never [facility] Start: 10-26-2023 End: 11-04-2023 Sex Assigned At Male [facility] Start: 10-19-2023 Tobacco smoking status Light t obacco smoker (finding) [facility] Start: 10-26-2023 End: 11-04-2023 History of Social function [facility] Start: 1955 Sex Assigned At Not on file [facility] Start: 11-04-2023 Alcohol intake Ex-drinker (finding) [facility] Start: 11-04-2023 Alcohol Comment caffine: 3 cups lucretia y [facility] Functional Status Date Assessment Result Facility 10-19-2023 Functional Status Yes [facility] 04-13-2023 Functional Status N/A [facility] 11-04-2022 Functional Status N/A [facility] 05-19-2022 Functional Status N/A [facility] Clinical Notes 12-18-2021 to 11-04-2023 Park [...] cont current meds documented in this encounter [facility] 10-19-2023 Hospital Discharge instructions Patient Education [...] urethra. Follow these instructions at home: Take cbdz-rzh-ejvzabf and prescription medicines only as told by [...] provider. Document Revised: 04/02/2022 Document Reviewed: 04/02/2022 [facility] Patient Education 2022 [email or web address]. Follow Up Care 04/13/2023 16:26:55 With:ANAHI MCDONALD, Puneet Ross, DELANEY Address: [facility] [address], [place] [address]- When:Within 1 Year(s) Comments:w/PSA [facility] [place] 04-13-2023 Hospital Discharge instructions Patient [...] similar to normal prostate cells (moderately differentiated). [place] 8, 9, or 10: This indicates that [...] stress of having cancer. General instructions Take cvto-qhj-urebbuc and prescription medicines only as told by your health care provider. If you have to go to the hospital, notify your cancer specialist (oncologist). Keep all follow-up visits. This is important. Where to find more information [employer]: www.cancer.org [employer]: www.cancer.net [employer]: www.cancer.gov Contact a health care provider if: [...] provider. Document Revised: 12/11/2021 Document Reviewed: 12/11/2021 [facility] Patient Education 2022 [email or web address]. Follow Up Care 03/16/2023 14:05:40 With:ANAHI MCDONALD, Puneet Ross, URL Address: [facility] [address] , [place] [phone]- [phone] When: Unknown Comments:6 mos w/ PSA and PVR [facility] 11-03-2022 Hospital Discharge instructions Patient Education [...] urethra. Follow these instructions at home: Take oefq-ovi-nunstnp and prescription medicines only as told by [...] 09/14/2006 Document Revised: 08/09/2019 Document Reviewed: 10/19/2017 [facility] Patient Education Astrapi Follow Up Care 10/13/2022 13:53:44 With:ANAHI MCDONALD, Puneet Ross URL Address: [facility] [address] , [place] [address]- When: Unknown [facility] 05-19-2022 Hospital Discharge instructions Patient Education 05/19/2022 16:24:13 Prostatitis, Czvd-qa-Ytyg Prostatitis Prostatitis is swelling of the prostate gland. The prostate helps to make semen. It is below a man's bladder, in front of the rectum. There are different types of prostatitis. Follow these instructions at home: Take edpr-adx-jklzxin and prescription medicines only as told by [...] 03/15/2013 Document Revised: 08/27/2018 Document Reviewed: 06/04/2017 [facility] Patient Education [place] 05/19/2022 16:24:11 Calorie Counting for Weight Loss [...] 09/14/2006 Document Revised: 06/03/2019 Document Reviewed: 08/14/2017 [facility] Patient Education 2020 [email or web address]. Follow Up Care 11/22/2021 12:25:13 With:ANAHI MCDONALD, Puneet Ross, URL Address: [address] [place] [address] [place] [address]- Business (1) When:Within 6 Month(s) Comments:w/FESTUS [facility] 12-18-2021 Note OPERATIVE NOTE PREOPERATIVE DIAGNOSIS: [...] to the poor prep. CC: Park Yoder, FENCE MAKING MACHINE OPERATOR IF Signed and Approved by: DR ARY ARTEAGA . 12/20/2021 11:57:00 [facility] Evaluation + Plan note Future Appointments Appointment Date:05/19/2022 03:15:00 PM Scheduled Provider:Puneet BRIGGS MD Location:[facility] Appointment Type:URO Office Visit [facility] [place] Evaluation + Plan note Future Appointments Appointment Date:11/24/2022 03:30:00 PM Scheduled Provider:Puneet BRIGGS MD Location:[facility] Appointment Type:URO Office Visit Diagnostic Tests PendingPSA Total 05/19/22 [facility] Evaluation + Plan note Future Appointments Appointment Date:03/18/2023 08:30:00 AM Scheduled Provider:Puneet BRIGGS MD Location:[facility] Appointment Type:URO Office Visit Diagnostic Tests PendingUroVysion Fish and Urine Cyto ([facility]) 11/04/22 [facility] Evaluation + Plan note Future Appointments Appointment Date:03/23/2023 03:00:00 PM Scheduled Provider:Puneet BRIGGS MD Location:[facility] Appointment Type:URO Office Visit [facility] Evaluation + Plan note Future Appointments Appointment Date:10/19/2023 02:45:00 PM Scheduled Provider:Puneet BRIGGS MD Location:[facility] Appointment Type:URO Office Visit Diagnostic Tests PendingPSA Total 04/13/23 [facility] Evaluation + Plan note Future Appointments Appointment Date:10/24/2024 03:00:00 PM Scheduled Provider:Puneet BRIGGS MD Location:[facility] Appointment Type:URO Office Visit Diagnostic Tests PendingPSA Total 10/19/23 [facility] Evaluation note Diagnosis Iron deficiency anemia following bariatric surgery- Primary BMI 37.0-37.9, adult Nonischemic cardiomyopathy (CMS/HCC) Other primary cardiomyopathies Primary hypertension (CMS/HCC) Unspecified essential hypertension Chronic systolic heart failure (CMS/HCC) Chronic systolic heart failure H/O bariatric surgery Mixed hyperlipidemia (CMS/HCC) Mixed hyperlipidemia documented in [facility] encounter [facility] Narrative No data available for this section General [facility] Discharge instructions No data available for this section General Surgery [facility] note No data available for this section [facility] Summary Purpose Family History No Family History Records FoundNo Family History Records FoundNo Family History Records FoundNo Family History Records FoundNo Family History Records Found No data available for this section No Family History Records FoundNo Family History Records Found Advance Directives No [...] section and content) DATE CREATED AUTHOR 03/18/2018 [facility] DATE CREATED AUTHOR AUTHOR'S ORGANIZ ATION 04/15/2019 [facility] DATE CREATED AUTHOR AUTHOR'S ORGANIZ ATION 12/16/2021 [facility] DATE CREATED AUTHOR AUTHOR'S ORGANIZ ATION 11/28/2022 [facility] DATE CREATED AUTHOR AUTHOR'S ORGANIZ ATION 04/14/2023 [place] [facility] DATE CREATED AUTHOR AUTHOR'S ORGANIZ ATION 04/12/2024 [facility] EPIC DATE CREATED AUTHOR AUTHOR'S ORGANIZ ATION 04/29/2024 [facility] Care Team (unrecognized sect ion and content) Software Engineer Relationship Specialty Start Date End Date Kenny Hartley MD [address] [place] [id number] PCP - General Family Medicine 10/26/23 Software Engineer Relationship Specialty Start Date End Date Kenny Hartley MD [address] [place] [id number] PCP - General Family Medicine 10/26/23 FOR [...] BE BASED ON THE PRIMARY CLINICAL RECORDS. [employer] provides no warranty or guarantee of the accuracy or completeness of information in this document.
[2024-05-02 11:55] LABS: Creatine Kinase 64 U/L (39-308); Myoglobin 54 ng/mL (16-96)
[2024-05-02 11:56] LABS: C Reactive Protein <0.50 mg/dL (<=0.50)
[2024-05-03 15:09] LABS: Aldolase 4.4 U/L (3.3-10.3)
== END 2024-05-02 10:54 | disposition home or self-care (01) ==
LOC: LAB 10:54
PROVIDERS: PCP Nurse Practitioner; Visit Provider Nurse Practitioner Adult Health
DX: R53.1 Weakness (principal); G62.9 Polyneuropathy, unspecified
CPT/HCPCS: 36415; 82085; 82550; 82746; 83874; 83921; 86140

== ENCOUNTER 2024-05-13 11:29 | Outpatient (OUT) | payer BC, SELFPAY ==
--- OUTSIDE RECORDS SUMMARY | 2024-05-13 11:44 | XMS_ITS | CCD ---
Author Organization [facility] Care Team Providers Care Medical Research Scientist Name Role Phone PHYSICIAN, DEFAULT Unavailable Unavailable PHYSICIAN, DEFAULT Unavailable Unavailable TATIANAHPARK ANGUIANO. Referring Unavailable TATIANAHQUIANA PARK J. Primary Care Unavailable TATIANAHQUIANA PARK J Primary Care Physician [phone] ANAHI Jackson, DR NGUYỄN Consulting Unavailable BRIGGS ., DR NGUYỄN Admitting Unavailable BRIGGS ., DR NGUYỄN Attending Unavailable AICHHOLZ, DIRECT MAIL MANAGER PARK Primary Care Unavailable MISC, DR AYERS Consulting Unavailable MISC, DR AYERS Admitting Unavailable MISC, DR AYERS Attending Unavailable AICHHOLZ, DIRECT MAIL MANAGER PARK Primary Care Unavailable AICHHOLZ, DIRECT MAIL MANAGER PARK Consulting Unavailable AICHHOLZ, DIRECT MAIL MANAGER PARK Primary Care Unavailable BRIGGS ., DR NGUYỄN Admitting Unavailable BRIGGS ., DR NGUYỄN Attending Unavailable ZIEBER, DR CASSIDY Ross Consulting Unavailable ELI DALAL Attending Unavailable ELI DALAL Admitting Unavailable AICHHOLZ, DIRECT MAIL MANAGER PARK Primary Care Unavailable JENNIFER DRAKE Consulting Unavailable CAMILLE .DEANNE Consulting UnavailISACC Sidhu Admitting Unavailable ISACC BEJARANO Attending Unavailable AICHHOLZ, DIRECT MAIL MANAGER PARK Primary Care Unavailable ISACC BEJARANO Consulting Unavailable AICHHOLZ, DIRECT MAIL MANAGER PARK Primary Care Unavailable NILL ., DR MCALLISTER Admitting Unavailable NILL ., DR MCALLISTER Attending Unavailable NILL ., DR MCALLISTER Consulting Unavailable AICHHOLZ, DIRECT MAIL MANAGER PARK Primary Care Unavailable NILL ., DR MCALLISTER Admitting Unavailable NILL ., DR MCALLISTER Attending Unavailable TAMERAUBGRACE LOEPZ Consulting Unavailable JUAN ORO Consulting Unavailable AICHHOLZ, DIRECT MAIL MANAGER PARK Consulting Unavailable AICHHOLZ, DIRECT MAIL MANAGER PARK Primary Care Unavailable AICHHOLZ, DIRECT MAIL MANAGER PARK Admitting Unavailable AICHHOLZ, DIRECT MAIL MANAGER PARK Attending Unavailable AICHHOLZ, DIRECT MAIL MANAGER PARK Consulting Unavailable AICHHOLZ, DIRECT MAIL MANAGER PARK Admitting Unavailable AICHHOLZ, DIRECT MAIL MANAGER PARK Attending Unavailable AICHHOLZ, LILIANA PARK Primary Care [...] procedure, # 2 tab(s), Refills(s) 0, Pharmacy: [id number], 176, cm, 05/19/22 16:10:00 EDT, [...] 05-19-2022 10-24-2019 Chronic Other aftercare (1 source) USP (current) use of aspirin; Translations: [INTERMEDIATE CURRENT USE OF ASPIRIN] Onset: 09-15-2022 Episodic Other aftercare (1 source) Other intermediate card tender (current) drug therapy; Translations: [OTH INTERMEDIATE CURRENT DRUG THERAPY] Onset: 09-15-2022 Episodic Other [...] Urnls Dip Stick Auto w/o Microscopy POC [id number] Your Care Team Attending Physician - Puneet [...] Puneet BRIGGS MD Where: [facility] Patient Educationon 04-13-20 Patient Education Oncology Prostate [...] likelihood that the cancer will spread. ? [place] 6 or lower: This indicates that the cancer cells look similar to normal prostate cells (well differentiated). ? [place] 7: This indicates that the cancer cells [...] external be (more content not included)... Normal [facility] Reminderson 04-13-2023 Reminders - From: Shala Soares To: EU - Recalls Briggs; Sent: 04/13/2023 16:27:00 EDT Show up: 09/13/2023 15:26:00 EST Subject: PSA Reminder Message Please Remember to:_get PSA (at [facility]) prior to next appt. Normal [facility] Urology Office/Clinic Noteon 04-13-2023 Urology Office/Clinic [...] [facility] [address], [place] [phone] Additional Instructions: 6 mos w/ PSA and [...] of prostat (more content not included)... Normal [facility] Comment on above: Result Comment: Electronically Signed By : Puneet BRIGGS MD\.br\Date and Time Signed: 04/13/23 16:26 EDT\.br\Electronically Co-Signed By: Shala Soares\.br\Date and Time Co-Signed: 04/13/23 16:25 EDT Lab Reportson 11-30-2022 Lab Reports [id number]:127 Normal [facility] UroVysion Fish and Urine Cyt o ([facility])on 11-13-2022 UVFISH & UC Diagnosis Info Invalid Interpretation Code [facility] Comment on above: Result Comment: A:Urine,Urine:Voided [...] 170 Hematuria: Gross Description Site ID:A color Laurel fixative Alcohol Received 80 mls of clear orange fluid with the patient's name and, Urine on the vial. Electronically signed by : on: 11/13/2022 08:34:30 Performed By: #### 1 [id number] ####[facility] [address] [place] [address] Consent for Procedure/Surger yon 11-05-2022 Consent for Procedure/Surge ry [id number]#[id number]:127 Normal [facility] UroVysion Fish and Urine Cyt o ([facility])on 11-04-2022 UVUC Method of Extraction Bladder Urine Normal [facility] Comment on above: Performed By: #### [id number] ####[facility] [address] [place] [address] [facility] Number of Jars 1 Invalid Interpretation Code [facility] Comment on above: Performed By: #### [id number] ####[facility] [address] [place] [address] [facility] Specimen Urine Normal [facility] Comment on above: Performed By: #### [id number] ####[facility] [address] [place] [address] [facility] Type of Service Global Normal [facility] Comment on above: Performed By: #### [id number] ####[facility] [address] [place] [address] Urology Office/Clinic Noteon 11-04-2022 Urology Office/Clinic Note [...] blood and clots on 09/12/22. Went to [facility] ER, they did urine cx. Was not [...] [facility] [address], [place] [address]- Additional Instructions: f/u 4 mos Patient Education [...] of lower (more content not included)... Normal [facility] Comment on above: Result Comment: Electronically [...] Follow these instructions at home: ? Take bizy-tzj-hjdepps and prescription medicines only as told by [...] You d (more content not included)... Normal [facility] Pre-Certification Formon Pre-Certificati on Form [id number]:127 Normal [facility] ER URINE PROFILEon 2 Bilirubin Ql (U) Negative Normal NEGATIVE [facility] Comment on above: Performed By: #### NICOL ERUR #### [facility] [address] [place] [address] Dr. Santhosh Francois Clarity (U) CLEAR Normal CLEAR [facility] Comment on above: Performed By: #### NICOL ERUR #### [facility] [address] [place] [address] Dr. Santhosh Francois Color (U) LT. YELLOW Normal YELLOW [facility] Comment on above: Performed By: #### NICOL ERUR #### [facility] [address] [place] [address] Dr. Santhosh PALACIOS A micrscopic examina tion will be performed if indicated. Normal [facility] Comment on above: Performed By: #### NICOL ERUR #### [facility] [address] [place] [address] Dr. Santhosh Francois Glucose Ql (U) Negative Normal NEGATIVE [facility] Comment on above: Performed By: #### NICOL ERUR #### [facility] [address] [place] [address] Dr. Santhosh Francois Hemoglobin Ql (U) LARGE Abnormal NEGATIVE [facility] Comment on above: Performed By: #### NICOL ERUR #### [facility] [address] [place] [address] Dr. Santhosh Francois Ketones Ql (U) Negative Normal NEGATIVE [facility] Comment on above: Performed By: #### NICOL ERUR #### [facility] [address] [place] [address] Dr. Santhosh Francois LEUKOCYTES Negative Normal NEGATIVE [facility] Comment on above: Performed By: #### NICOL ERUR #### [facility] [address] [place] [address] Dr. Santhosh Francois Nitrite Ql (U) Negative Normal NEGATIVE [facility] Comment on above: Performed By: #### NICOL, ERUR #### [facility] [address] [place] [address] Dr. Santhosh Francois pH (U) 5.0 [pH] Normal 5-9 [facility] Comment on above: Performed By: #### NICOL, ERUR #### [facility] [address] [place] [address] Dr. Santhosh Francois SPEC GRAVITY 1.010 Normal 1.005-<=1.02 5 [facility] Comment on above: Performed By: #### NICOL ERUR #### [facility] [address] [place] [address] Dr. Santhosh Francois UA PROTEIN TRACE Normal NEGATIVE/ TRACE [facility] Comment on above: Performed By: #### NICOL ERUR #### [facility] [address] [place] [address] Dr. Santhosh Francois UR MICRO IND INDICATED Normal [facility] Comment on above: Performed By: #### NICOL ERUR #### [facility] [address] [place] [address] Dr. Santhosh Francois Urobilinogen Qn (U) 0.2 {Malini'U}/dL Normal 0.2 - 1.0 [facility] Comment on above: Performed By: #### NICOL ERUR #### [facility] [address] [place] [address] Dr. Santhosh Francois URINE MICROSCOPIC ONLYon BACTERIA NONE SEEN Normal NONE SEEN [facility] Comment on above: Performed By: #### CBC #### [facility] [address] [place] [address] Dr. Santhosh Francois Bacteria identified Cx Nom (U) NOT INDICATED Normal [facility] Comment on above: Performed By: #### CBC #### [facility] [address] [place] [address] Dr. Santhosh Francois CAST NONE SEEN Normal NONE SEEN [facility] Comment on above: Performed By: #### CBC #### [facility] [address] [place] [address] Dr. Santhosh Francois Crystals LM Nom (Urine sed) NONE SEEN Normal NONE SEEN [facility] Comment on above: Performed By: #### CBC #### [facility] [address] [place] [address] Dr. Santhosh Francois Epithelial cells LM Ql (Urine sed) RARE Normal NONE SEEN /RARE [facility] Comment on above: Performed By: #### CBC #### [facility] [address] [place] [address] Dr. Santhosh Francois MUCOUS NONE SEEN Normal NONE SEEN [facility] Comment on above: Performed By: #### CBC #### [facility] [address] [place] [address] Dr. aSnthosh Francois RBC 10-20 Abnormal 0-2 [facility] Comment on above: Performed By: #### CBC #### [facility] [address] [place] [address] Dr. Santhosh Francois WBC NONE SEEN Normal NONE SEEN [facility] Comment on above: Performed By: #### CBC #### [facility] [address] [place] [address] Dr. Santhosh Francois Lab Reportson 05-20-2022 Lab Reports [id number]:127 Normal [facility] Ambulatory Visit Summaryon 0 05-19-2022 Ambulatory Visit Summary SHABNAM BURGESS :1955 Visit Date:05/19/2022 Ambulatory Visit Instructions Your Diagnosis Prostate cancer Chronic prostatitis BPH with urinary obstruction Kidney stones BMI 36.0-36.9,adult Other obstructive and reflux uropathy Tests Performed Urnls Dip Stick Auto w/o Microscopy POC 91355 Your Care Team Attending Physician - ANAHI [...] MCDONALD, Puneet Ross Where: [facility] Patient Educationon 05-19-20 Patient Education Infectious Disease Prostatitis Prostatitis is swelling of the prostate gland. The prostate helps to make semen. It is below a man's bladder, in front of the rectum. There are different types of prostatitis. Follow these instructions at home: ? Take mqzn-yiz-nqkuycc and prescription medicines only as told by [...] 03/15/2013 Document Revised: 08/27/2018 Document Reviewed: 06/04/2017 [employer] Patient Education ? 2020 [employer]. Nutrition Calorie Counting for Weight Loss Calories [...] not leave (more content not included)... Normal [facility] Urology Office/Clinic Noteon 05-19-2022 Urology Office/Clinic [...] MCDONALD, Puneet Ross, DELANEY In 6 months [facility] [place] [id number] Business (1) Additional Instructions: w/PSA Patient Education Prostatitis, Ilsx-dw-Vjjn Calorie Counting for Weight Loss Carey Willett [...] Wine, Daily, (more content not included)... Normal [facility] Comment on above: Result Comment: Electronically Signed By : Puneet BRIGGS MD\.br\Date and Time Signed: 05/19/22 16:36 EDT\.br\Electronically Co-Signed By: Carey Gonzalez\.br\Date and Time Co-Signed: 05/19/22 16:34 EDT LIPID PROFILEon 05-16-2022 CHOL-HDL RATIO NORM SEE BELOW Normal [facility] Comment on above: Result Comment: 3.3 - 4.4 LOW RISK 4.4 - 7.1 AVERAGE RISK 7.1 - 11.0 MODERATE RISK >11.0 HIGH RISK Performed By: #### C BC #### [facility] [address] [place] [address] [address] Santhosh Francois Cholesterol [Mass/Vol] 58 mg/dL Normal <=200 [facility] Comment on above: Performed By: #### CBC #### [facility] [address] [address] [address] Santhosh Francois Cholesterol in HDL [Mass/Vol] 38 mg/dL Critically low 40-60 [facility] Comment on above: Performed By: #### CBC #### [facility] [address] [address] [address] Santhosh Francois Cholesterol in LDL [Mass/Vol] 14.0 mg/dL Normal [facility] Comment on above: Performed By: #### CBC #### [facility] [address] [address] [address] Santhosh Francois Cholesterol.tot al/Cholesterol in HDL [Mass ratio] 1.5 {ratio} Normal [facility] Comment on above: Performed By: #### CBC #### [facility] [address] [address] [address] Santhosh Francois HDL NORMAL > or = 60 mg/dl - LO W CARDIOVASCULAR RISK <40 mg/dl - HIGH CARDIOVASCULAR RISK Normal [facility] Comment on above: Performed By: #### CBC #### [facility] [address] [address] [address] Santhosh Francois LDL CALC NORMAL SEE BELOW Normal [facility] Comment on above: Result Comment: <100 mg/dl OPTIMAL 100 - 129 mg/dl NEAR OR ABOVE OPTIMAL 130 - 159 mg/dl BORDERLINE HIGH 160 - 189 mg/dl HIGH >190 mg/dl VERY HIGH Performed By: #### C BC #### [facility] [address] [address] [address] Santhosh Francois Triglyceride [Mass/Vol] 30 mg/dL Normal <=150 [facility] Comment on above: Performed By: #### CBC #### [facility] [address] [address] [address] Santhosh Francois VLDL CALC 6.0 mg/dL Normal [facility] Comment on above: Performed By: #### CBC #### [facility] [address] [address] [address] Santhosh Francois PROF 14(COMP METB)on 022 Albumin [Mass/Vol] 3.6 g/dL Normal 3.4-5.0 [facility] Comment on above: Performed By: #### CBC #### [facility] [address] [place] [address] Dr. Santhosh Francois Albumin/Globuli n [Mass ratio] 1.1 {ratio} Normal [facility] Comment on above: Performed By: #### CBC #### [facility] [address] [address] [address] Santhosh Francois ALP [Catalytic activity/Vol] 145 U/L Critically high 46-116 [facility] Comment on above: Performed By: #### CBC #### [facility] [address] [address] [address] Santhosh Francois ALT [Catalytic activity/Vol] 102 U/L Critically high 16-63 [facility] Comment on above: Performed By: #### CBC #### [facility] [address] [address] [address] Santhosh Francois Anion gap [Moles/Vol] 12.7 mmol/L Normal [facility] Comment on above: Performed By: #### CBC #### [facility] [address] [address] [address] Santhosh Francois AST [Catalytic activity/Vol] 68 U/L Critically high 15-37 [facility] Comment on above: Performed By: #### CBC #### [facility] [address] [address] [address] Santhosh Francois Bilirubin [Mass/Vol] 1.0 mg/dL Normal 0.2-1.0 [facility] Comment on above: Performed By: #### CBC #### [facility] [address] [place] [address] Dr. Santhosh Francois Calcium [Mass/Vol] 8.0 mg/dL Critically low 8.5-10.1 [facility] Comment on above: Performed By: #### CBC #### [facility] [address] [place] [address] Dr. Santhosh Francois Chloride [Moles/Vol] 111 mmol/L Critically high 98-107 [facility] Comment on above: Performed By: #### CBC #### [facility] [address] [place] [address] Dr. Santhosh Fracnois CO2 [Moles/Vol] 20.6 mmol/L Critically low 21.0-32.0 [facility] Comment on above: Performed By: #### CBC #### [facility] [address] [place] [address] Dr. Santhosh Francois Creatinine [Mass/Vol] 0.96 mg/dL Normal 0.70-1.30 [facility] Comment on above: Performed By: #### CBC #### [facility] [address] [place] [address] Dr. Santhosh Francois EGFR-AF INDONESIAN >60 Normal >=60 [facility] Comment on above: Performed By: #### CBC #### [facility] [address] [place] [address] Dr. Santhosh Francois EGFR-NON AF INDONESIAN >60 Normal >=60 [facility] Comment on above: Performed By: #### CBC #### [facility] [address] [place] [address] Dr. Santhosh Francois Globulin (S) [Mass/Vol] 3.2 g/dL Normal [facility] Comment on above: Performed By: #### CBC #### [facility] [address] [place] [address] Dr. Santhosh Francois Glucose [Mass/Vol] 88 mg/dL Normal 74-106 [facility] Comment on above: Performed By: #### CBC #### [facility] [address] [address] [address] Santhosh Francois Potassium [Moles/Vol] 4.3 mmol/L Normal 3.5-5.1 [facility] Comment on above: Performed By: #### CBC #### [facility] [address] [place] [address] Dr. Santhosh Francois Protein [Mass/Vol] 6.8 g/dL Normal 6.4-8.2 [facility] Comment on above: Performed By: #### CBC #### [facility] [address] [place] [address] Dr. Santhosh Frnacois Sodium [Moles/Vol] 140 mmol/L Normal 136-145 [facility] Comment on above: Performed By: #### CBC #### [facility] [address] [place] [address] Dr. Santhosh Francois Urea nitrogen [Mass/Vol] 26.0 mg/dL Critically high 7.0-18.0 [facility] Comment on above: Performed By: #### CBC #### [facility] [address] [place] [address] Dr. Santhosh Francois Urea nitrogen/Creati nine [Mass ratio] 27.1 mg/mg Normal [facility] Comment on above: Performed By: #### CBC #### [facility] [address] [place] [address] Dr. Santhosh Francois ED Note-Physicianon 05-07-20 ED Note-Physician [id number]:127 Normal [facility] RAD - CT Reporton 05-06-2022 RAD - CT Report [id number]:127 Normal [facility] CBC AUTO DIFFon 04-30-2022 BASO # 0.0 103/ul Normal 0.0-0.1 [facility] Comment on above: Performed By: #### CBC #### [facility] [address] [address] [address] Santhosh Francois Basophils/100 WBC (Bld) 0.5 % Normal 0.2-2.0 [facility] Comment on above: Performed By: #### CBC #### [facility] [address] [address] [address] Santhosh Francois EO # 0.2 103/ul Normal 0.0-0.7 [facility] Comment on above: Performed By: #### CBC #### [facility] [address] [address] [address] Santhosh Francois Eosinophils/100 WBC (Bld) 2.9 % Normal 0.9-7.0 [facility] Comment on above: Performed By: #### CBC #### [facility] [address] [address] [address] Santhosh Francois Erythrocyte distribution width (RBC) [Ratio] 14.9 % Normal 11.0-15.0 [facility] Comment on above: Performed By: #### CBC #### [facility] [address] [address] [address] Santhosh Francois Hematocrit (Bld) [Volume fraction] 39.1 % Critically low 42.0-54.0 [facility] Comment on above: Performed By: #### CBC #### [facility] [address] [address] [address] Santhosh Francois Hemoglobin (Bld) [Mass/Vol] 12.2 g/dL Critically low 14.0-18.0 [facility] Comment on above: Performed By: #### CBC #### [facility] [address] [place] [address] Dr. Santhosh Francois IG # 0.01 10e3/ul Normal 0.00-0.03 [facility] Comment on above: Performed By: #### CBC #### [facility] [address] [place] [address] Dr. Santhosh Francois IG % 0.2 % Normal 0.0-0.5 [facility] Comment on above: Performed By: #### CBC #### [facility] [address] [place] [address] Dr. Santhosh Francois LYMPH # 2.0 103/ul Normal 1.2-3.8 [facility] Comment on above: Performed By: #### CBC #### [facility] [address] [place] [address] Dr. Santhosh Francois Lymphocytes/100 WBC (Bld) 32.6 % Normal 20.5-60.0 [facility] Comment on above: Performed By: #### CBC #### [facility] [address] [place] [address] Dr. Santhosh Francois MANUAL DIFF REQ NO Normal [facility] Comment on above: Performed By: #### CBC #### [facility] [address] [place] [address] Dr. Santhosh Francois MCH (RBC) [Entitic mass] 29.9 pg Normal 25.9-34.0 [facility] Comment on above: Performed By: #### CBC #### [facility] [address] [place] [address] Dr. Santhosh Francois MCHC (RBC) [Mass/Vol] 31.2 g/dL Normal 29.9-35.2 [facility] Comment on above: Performed By: #### CBC #### [facility] [address] [place] [address] Dr. Santhosh Francois MCV (RBC) [Entitic vol] 95.8 fL Critically high 80.0-94.0 [facility] Comment on above: Performed By: #### CBC #### [facility] [address] [place] [address] Dr. Santhosh Francois MONO # 0.5 103/ul Normal 0.3-0.8 [facility] Comment on above: Performed By: #### CBC #### [facility] [address] [place] [address] Dr. Santhosh Francois Monocytes/100 WBC (Bld) 7.9 % Normal 1.7-12.0 [facility] Comment on above: Performed By: #### CBC #### [facility] [address] [place] [address] Dr. Santhosh Francois NEUT # 3.5 103/ul Normal 1.4-6.5 [facility] Comment on above: Performed By: #### CBC #### [facility] [address] [place] [address] Dr. Santhosh Francois Neutrophils/100 WBC (Bld) 55.9 % Normal 43.0-75.0 [facility] Comment on above: Performed By: #### CBC #### [facility] [address] [place] [address] Dr. Santhosh Francois Platelet mean volume (Bld) [Entitic vol] 10.6 fL Normal 9.5-13.5 [facility] Comment on above: Performed By: #### CBC #### [facility] [address] [place] [address] Dr. Santhosh Francois PLT 125 103/ul Critically low 150-450 [facility] Comment on above: Performed By: #### CBC #### [facility] [address] [place] [address] Dr. Santhosh Francois RBC 4.08 106/ul Critically low 4.70-6.10 [facility] Comment on above: Performed By: #### CBC #### [facility] [address] [place] [address] Dr. Santhosh Francois WBC 6.2 103/ul Normal 4.0-11.0 [facility] Comment on above: Performed By: #### CBC #### [facility] [address] [place] [address] ABD/PELVIS WO CONon [...] CASSIDY DILLON Date: 2022-04-30 18:05 Normal [facility] CULTURE URINEon 04-30-2022 CULTURE URINE Culture Observations : NO GROWTH. Normal [facility] Comment on above: Performed By: #### URCX #### [facility] [address] [address] [address] Santhosh Francois ER URINE PROFILEon 2 Bilirubin Ql (U) Unable to perform testing due to color interference. Abnormal NEGATIVE [facility] Comment on above: Performed By: #### ERUR, UMICRO #### [facility] [address] [address] [address] Santhosh Francois Clarity (U) TURBID Abnormal CLEAR [facility] Comment on above: Performed By: #### ERUR, UMICRO #### [facility] [address] [place] [address] Dr. Santhosh Francois Color (U) RED Abnormal YELLOW [facility] Comment on above: Performed By: #### ERUR, UMICRO #### [facility] [address] [address] [address] Santhosh Francois ERUAHD A micrscopic examina tion will be performed if indicated. Normal [facility] Comment on above: Performed By: #### ERUR, UMICRO #### [facility] [address] [place] [address] Dr. Santhosh Francois Glucose Ql (U) Unable to perform te sting due to color interference. Abnormal NEGATIVE [facility] Comment on above: Performed By: #### ERUR, UMICRO #### [facility] [address] [place] [address] Dr. Santhosh Francois Hemoglobin Ql (U) Unable to perform testing due to color interference. Abnormal NEGATIVE [facility] Comment on above: Performed By: #### ERUR, UMICRO #### [facility] [address] [place] [address] Dr. Santhosh Francois Ketones Ql (U) Unable to perform te sting due to color interference. Abnormal NEGATIVE [facility] Comment on above: Performed By: #### ERUR, UMICRO #### [facility] [address] [place] [address] Dr. Santhosh Francois LEUKOCYTES Unable to perform te sting due to color interference. Abnormal NEGATIVE [facility] Comment on above: Performed By: #### ERUR, UMICRO #### [facility] [address] [address] [address] Santhosh Francois Nitrite Ql (U) Unable to perform te sting due to color interference. Abnormal NEGATIVE [facility] Comment on above: Performed By: #### ERUR, UMICRO #### [facility] [address] [address] [address] Santhosh Francois pH (U) 6.0 [pH] Normal 5-9 [facility] Comment on above: Performed By: #### ERUR, UMICRO #### [facility] [address] [address] [address] Santhosh Francois SPEC GRAVITY 1.025 Normal 1.005-<=1.02 5 [facility] Comment on above: Performed By: #### ERUR, UMICRO #### [facility] [address] [place] [address] Dr. Santhosh Francois UA PROTEIN Unable to perform te sting due to color interference. Normal NEGATIVE/ TRACE [facility] Comment on above: Performed By: #### ERUR, UMICRO #### [facility] [address] [place] [address] Dr. Santhosh Francois UR MICRO IND INDICATED Normal [facility] Comment on above: Performed By: #### CORRINAR, UMICRO #### [facility] [address] [place] [address] Dr. Santhosh Francois UROBILINOGEN Unable to perform te sting due to color interference. Normal 0.2 - 1.0 [facility] Comment on above: Performed By: #### SKYLAR, UMICRO #### [facility] [address] [place] [address] Dr. Santhosh Francois PROF CHEM 8 (BAS METB)on Anion gap [Moles/Vol] 12.6 mmol/L Normal [facility] Comment on above: Performed By: #### BMP #### [facility] [address] [place] [address] Dr. Santhosh Francois Calcium [Mass/Vol] 7.7 mg/dL Critically low 8.5-10.1 [facility] Comment on above: Performed By: #### BMP #### [facility] [address] [place] [address] Dr. Santhosh Francois Chloride [Moles/Vol] 114 mmol/L Critically high 98-107 [facility] Comment on above: Performed By: #### BMP #### [facility] [address] [place] [address] Dr. Santhosh Francois CO2 [Moles/Vol] 21.1 mmol/L Normal 21.0-32.0 [facility] Comment on above: Performed By: #### BMP #### [facility] [address] [address] [address] Santhosh Francois Creatinine [Mass/Vol] 1.12 mg/dL Normal 0.70-1.30 [facility] Comment on above: Performed By: #### BMP #### [facility] [address] [address] [address] Santhosh Francois EGFR-AF INDONESIAN >60 Normal >=60 [facility] Comment on above: Performed By: #### BMP #### [facility] [address] [address] [address] Santhosh Francois EGFR-NON AF INDONESIAN >60 Normal >=60 [facility] Comment on above: Performed By: #### BMP #### [facility] [address] [place] [address] Dr. Santhosh Francois Glucose [Mass/Vol] 90 mg/dL Normal 74-106 [facility] Comment on above: Performed By: #### BMP #### [facility] [address] [place] [address] Dr. Santhosh Francois Potassium [Moles/Vol] 3.7 mmol/L Normal 3.5-5.1 [facility] Comment on above: Performed By: #### BMP #### [facility] [address] [place] [address] Dr. Santhosh Francois Sodium [Moles/Vol] 144 mmol/L Normal 136-145 [facility] Comment on above: Performed By: #### BMP #### [facility] [address] [place] [address] Dr. Santhosh Francois Urea nitrogen [Mass/Vol] 23.0 mg/dL Critically high 7.0-18.0 [facility] Comment on above: Performed By: #### BMP #### [facility] [address] [place] [address] Dr. Santhosh Francois Urea nitrogen/Creati nine [Mass ratio] 20.5 mg/mg Normal [facility] Comment on above: Performed By: #### BMP #### [facility] [address] [place] [address] Dr. Santhosh Francois URINE MICROSCOPIC ONLYon BACTERIA NONE SEEN Normal NONE SEEN [facility] Comment on above: Performed By: #### SKYLAR UMICRO #### [facility] [address] [place] [address] Dr. Santhosh Francois Bacteria identified Cx Nom (U) NOT INDICATED Normal [facility] Comment on above: Performed By: #### SKYLAR UMICRO #### [facility] [address] [place] [address] Dr. Santhosh Francois CAST NONE SEEN Normal NONE SEEN [facility] Comment on above: Performed By: #### SKYLAR UMICRO #### [facility] [address] [place] [address] Dr. Santhosh Francois Crystals LM Nom (Urine sed) NONE SEEN Normal NONE SEEN [facility] Comment on above: Performed By: #### SKYLAR UMICRO #### [facility] [address] [place] [address] Dr. Santhosh Francois Epithelial cells LM Ql (Urine sed) NONE SEEN Normal NONE SEEN /RARE [facility] Comment on above: Performed By: #### SKYLAR UMICRO #### [facility] [address] [place] [address] Dr. Santhosh Francois MUCOUS NONE SEEN Normal NONE SEEN [facility] Comment on above: Performed By: #### SKYLAR UMICRO #### [facility] [address] [place] [address] Dr. Santhosh Francois RBC (U) [#/Vol] /uL Abnormal 0-2 [facility] Comment on above: Performed By: #### SKYLAR UMICRO #### [facility] [address] [place] [address] Dr. Santhosh Francois WBC 10-20 Abnormal NONE SEEN [facility] Comment on above: Performed By: #### SKYLAR UMICRO #### [facility] [address] [place] [address] Dr. Santhosh Francois CBC AUTO DIFFon 03-07-2022 BASO # 0.1 103/ul Normal 0.0-0.1 [facility] Comment on above: Performed By: #### CBC #### [facility] [address] [place] [address] Dr. Santhosh Francois Basophils/100 WBC (Bld) 0.8 % Normal 0.2-2.0 [facility] Comment on above: Performed By: #### CBC #### [facility] [address] [place] [address] Dr. Santhosh Francois EO # 0.1 103/ul Normal 0.0-0.7 [facility] Comment on above: Performed By: #### CBC #### [facility] [address] [place] [address] Dr. Santhosh Francois Eosinophils/100 WBC (Bld) 1.9 % Normal 0.9-7.0 [facility] Comment on above: Performed By: #### CBC #### [facility] [address] [place] [address] Dr. Santhosh Francois Erythrocyte distribution width (RBC) [Ratio] 16.4 % Critically high 11.0-15.0 [facility] Comment on above: Performed By: #### CBC #### [facility] [address] [place] [address] Dr. Santhosh Francois Hematocrit (Bld) [Volume fraction] 43.0 % Normal 42.0-54.0 [facility] Comment on above: Performed By: #### CBC #### [facility] [address] [place] [address] Dr. Santhosh Francois Hemoglobin (Bld) [Mass/Vol] 13.4 g/dL Critically low 14.0-18.0 [facility] Comment on above: Performed By: #### CBC #### [facility] [address] [place] [address] Dr. Santhosh Francois IG # 0.02 10e3/ul Normal 0.00-0.03 [facility] Comment on above: Performed By: #### CBC #### [facility] [address] [place] [address] Dr. Santhosh Francois IG % 0.3 % Normal 0.0-0.5 [facility] Comment on above: Performed By: #### CBC #### [facility] [address] [place] [address] Dr. Santhosh Francois LYMPH # 1.8 103/ul Normal 1.2-3.8 [facility] Comment on above: Performed By: #### CBC #### [facility] [address] [place] [address] Dr. Santhosh Francois Lymphocytes/100 WBC (Bld) 29.2 % Normal 20.5-60.0 [facility] Comment on above: Performed By: #### CBC #### [facility] [address] [place] [address] Dr. Santhosh Francois MANUAL DIFF REQ NO Normal [facility] Comment on above: Performed By: #### CBC #### [facility] [address] [place] [address] Dr. Santhosh Francois MCH (RBC) [Entitic mass] 30.5 pg Normal 25.9-34.0 [facility] Comment on above: Performed By: #### CBC #### [facility] [address] [place] [address] Dr. Santhosh Francois MCHC (RBC) [Mass/Vol] 31.2 g/dL Normal 29.9-35.2 [facility] Comment on above: Performed By: #### CBC #### [facility] [address] [place] [address] Dr. Santhosh Francois MCV (RBC) [Entitic vol] 97.9 fL Critically high 80.0-94.0 [facility] Comment on above: Performed By: #### CBC #### [facility] [address] [place] [address] Dr. Santhosh Francois MONO # 0.4 103/ul Normal 0.3-0.8 [facility] Comment on above: Performed By: #### CBC #### [facility] [address] [place] [address] Dr. Santhosh Francois Monocytes/100 WBC (Bld) 6.3 % Normal 1.7-12.0 [facility] Comment on above: Performed By: #### CBC #### [facility] [address] [address] [address] Santhosh Francois NEUT # 3.8 103/ul Normal 1.4-6.5 [facility] Comment on above: Performed By: #### CBC #### [facility] [address] [address] [address] Santhosh Francois Neutrophils/100 WBC (Bld) 61.5 % Normal 43.0-75.0 [facility] Comment on above: Performed By: #### CBC #### [facility] [address] [address] [address] Santhosh Francois Platelet mean volume (Bld) [Entitic vol] 10.5 fL Normal 9.5-13.5 [facility] Comment on above: Performed By: #### CBC #### [facility] [address] [place] [address] Dr. Santhosh Francois PLT 148 103/ul Critically low 150-450 [facility] Comment on above: Performed By: #### CBC #### [facility] [address] [place] [address] Dr. Santhosh Francois RBC 4.39 106/ul Critically low 4.70-6.10 [facility] Comment on above: Performed By: #### CBC #### [facility] [address] [place] [address] Dr. Santhosh Francois WBC 6.2 103/ul Normal 4.0-11.0 [facility] Comment on above: Performed By: #### CBC #### [facility] [address] [address] [address] Santhosh Francois IRONon 03-07-2022 Iron [Mass/Vol] 125.0 ug/dL Normal 65.0-175.0 [facility] Comment on above: Performed By: #### IRON #### [facility] [address] [place] [address] Dr. Santhosh Francois CBC AUTO DIFFon 12-03-2021 BASO # 0.0 103/ul Normal 0.0-0.1 [facility] Comment on above: Performed By: #### CBC #### [facility] [address] [place] [address] Dr. Santhosh Francois Basophils/100 WBC (Bld) 0.7 % Normal 0.2-2.0 [facility] Comment on above: Performed By: #### CBC #### [facility] [address] [place] [address] Dr. Santhosh Francois EO # 0.2 103/ul Normal 0.0-0.7 [facility] Comment on above: Performed By: #### CBC #### [facility] [address] [place] [address] Dr. Santhosh Francois Eosinophils/100 WBC (Bld) 3.1 % Normal 0.9-7.0 [facility] Comment on above: Performed By: #### CBC #### [facility] [address] [place] [address] Dr. Santhosh Francois Hematocrit (Bld) [Volume fraction] 40.4 % Critically low 42.0-54.0 [facility] Comment on above: Performed By: #### CBC #### [facility] [address] [place] [address] Dr. Santhosh Francois Hemoglobin (Bld) [Mass/Vol] 11.5 g/dL Critically low 14.0-18.0 [facility] Comment on above: Performed By: #### CBC #### [facility] [address] [place] [address] Dr. Santhosh Francois IG # 0.01 10e3/ul Normal 0.00-0.03 [facility] Comment on above: Performed By: #### CBC #### [facility] [address] [place] [address] Dr. Santhosh Francois IG % 0.2 % Normal 0.0-0.5 [facility] Comment on above: Performed By: #### CBC #### [facility] [address] [place] [address] Dr. Santhosh Francois LYMPH # 2.0 103/ul Normal 1.2-3.8 [facility] Comment on above: Performed By: #### CBC #### [facility] [address] [place] [address] Dr. Santhosh Francois Lymphocytes/100 WBC (Bld) 33.9 % Normal 20.5-60.0 [facility] Comment on above: Performed By: #### CBC #### [facility] [address] [place] [address] Dr. Santhosh Francois MANUAL DIFF REQ NO Normal [facility] Comment on above: Performed By: #### CBC #### [facility] [address] [place] [address] Dr. Santhosh Francois MCH (RBC) [Entitic mass] 24.1 pg Critically low 25.9-34.0 [facility] Comment on above: Performed By: #### CBC #### [facility] [address] [place] [address] Dr. Santhosh Francois MCHC (RBC) [Mass/Vol] 28.5 g/dL Critically low 29.9-35.2 [facility] Comment on above: Performed By: #### CBC #### [facility] [address] [place] [address] Dr. Santhosh Francois MCV (RBC) [Entitic vol] 84.5 fL Normal 80.0-94.0 [facility] Comment on above: Performed By: #### CBC #### [facility] [address] [place] [address] Dr. Santhosh Francois MONO # 0.4 103/ul Normal 0.3-0.8 [facility] Comment on above: Performed By: #### CBC #### [facility] [address] [place] [address] Dr. Santhosh Francois Monocytes/100 WBC (Bld) 7.7 % Normal 1.7-12.0 [facility] Comment on above: Performed By: #### CBC #### [facility] [address] [place] [address] Dr. Santhosh Francois NEUT # 3.1 103/ul Normal 1.4-6.5 [facility] Comment on above: Performed By: #### CBC #### [facility] [address] [place] [address] Dr. Santhosh Francois Neutrophils/100 WBC (Bld) 54.4 % Normal 43.0-75.0 [facility] Comment on above: Performed By: #### CBC #### [facility] [address] [address] [address] Santhosh Francois Platelet mean volume (Bld) [Entitic vol] 10.0 fL Normal 9.5-13.5 [facility] Comment on above: Performed By: #### CBC #### [facility] [address] [address] [address] Santhosh Francois PLT 191 103/ul Normal 150-450 [facility] Comment on above: Performed By: #### CBC #### [facility] [address] [address] [address] Santhosh Francois RBC 4.78 106/ul Normal 4.70-6.10 [facility] Comment on above: Performed By: #### CBC #### [facility] [address] [place] [address] Dr. Santhosh Francois WBC 5.8 103/ul Normal 4.0-11.0 [facility] Comment on above: Performed By: #### CBC #### [facility] [address] [place] [address] Dr. Santhosh Francois MR prostate wo/w conon 09-17 MR prostate wo/w con [facility] [place] [address] MRI Report Signed Patient: Shabnam Burgess MR#: [id number] : 1955 Acct:[id number] Age/Sex: 65 / M ADM Date: 09/16/21 Loc: Room: Type: [facility] Attending Dr: Puneet Briggs MD Ordering [...] AM COT by: Tomy Garza MD Diplomate, [place] [employer] Report Completed: Sep 17, 2021 10:46:46 AM COT This transmission is proprietary, privileged and confidential. It is intended to be communication only for the use of the addressee; access to this message by anyone else is unaut Transcribed By: 09/17/21 1348 Dictated By: NON STAFF 09/17/21 1046 Signed By: 09/17/21 1349 [facility] Blood Urea Nitrogenon 2020 Urea nitrogen [Mass/Vol] 21 mg/dL Normal 9-23 [facility] Comment on above: Order Comment: STAT FOR MRI Performed By: #### C REAT, BUN #### [address] Creatinineon 09-03-2021 Creatinine [Mass/Vol] 1.01 mg/dL Normal 0.64-1.27 [facility] Comment on above: Order Comment: STAT FOR MRI Performed By: #### C REAT, BUN #### [facility] [address] [place] [address] [place] Creatinine Clr Calc Pharmacy 90.06 [facility] Comment on above: Order Comment: STAT FOR MRI Result Comment: PERF ORMED BY: [place] [address] PATHOLOGIST GLUE MOUNTER OPERATOR TONNY ZHOU M.D. Performed By: #### C REAT, BUN #### [facility] [address] [place] [address] Estimated GFR ( Teresita > 60 [facility] Comment on above: Order Comment: STAT FOR MRI Result Comment: GFR estimated reference range: According to KDOQI guidelines, <60 ml/min/1.73m2 is sufficient to diagnose a patient with chronic kidney disease. Performed By: #### C REAT, BUN #### [facility] [address] [place] [address] [place] Estimated GFR (Non- Am > 60 [facility] Comment on above: Order Comment: STAT FOR MRI Performed By: #### C REAT, BUN #### [facility] [address] [id number] [facility] Ironon 04-15-2019 Iron [Mass/Vol] 22 ug/dL Low 59-158 [facility] Comment on above: Performed By: #### CP #### [facility] [address] [place], [place] [id number] [employer]: Frank Mercado MD #### B12, FE #### [address] [address] [employer]: Rainer Araujo MD Vitamin B12on 04-15-2019 Cobalamin (Vitamin B12) [Mass/Vol] 1062 pg/mL Normal 232-1245 [facility] Comment on above: Performed By: #### CP #### [facility] [address] [place] [address] Dr[address] [place], [place] [id number] [employer]: Frank Mercado MD #### B12, FE #### [address] [address] [employer]: Rainer Araujo MD Comp Metabolic Profon 2018 Albumin [Mass/Vol] 4.2 g/dL Normal 3.5-5.2 [facility] Comment on above: Performed By: #### CP #### [facility] [address] [place] [address] [address] [place], [place] [id number] [employer]: Frank Mercado MD #### B12, FE #### [id number] [place] [address] [employer]: Rainer Araujo MD Albumin/Globuli n [Mass ratio] 1.6 {ratio} Normal 1.0-2.5 [facility] Comment on above: Performed By: #### CP #### [facility] [address] [place] [address] [address] [place], [place] [id number] [employer]: Frank Mercado MD #### B12, FE #### [id number] [place], [place] [id number] [employer]: Rainer Araujo MD Alkaline Phos 120 U/L Normal 40-129 [facility] Comment on above: Performed By: #### CP #### [facility] [address] [place] [address] Dr[address] [place], [place] [phone] [employer]: Frank Mercado MD #### B12, FE #### [address] [id number] [employer]: Rainer Araujo MD Bilirubin Ql (U) 0.72 mg/dL Normal 0.3-1.2 [facility] Comment on above: Performed By: #### CP #### [address] [place] [place] [id number] [employer]: Frank Mercado MD #### B12, FE #### [address] [id number] [employer]: Rainer Araujo MD Protein [Mass/Vol] 6.8 g/dL Normal 6.4-8.3 [facility] Comment on above: Performed By: #### CP #### [address] [place] [place] [id number] [employer]: Frank Mercado MD #### B12, FE #### [address] [phone] [employer]: Rainer Araujo MD (cont.) [facility] Comment on above: Result Comment: Average GFR for 60-69 ye ars old: 85 mL/min/1.73sq m Chronic Kidney Disease: <60 mL/min/1.73sq m Kidney failure: <15 mL/min/1.73sq m eGFR calculated using average adult body mass. Additional eGFR calculator available at: http://www.Xetawave.Backdoor/multiple_crcl_2012.htm Performed By: #### C P #### [address] [place] [address] [employer]: Frank Mercado MD #### B12, FE #### [facility] [address] [place] [address] [employer]: Rainer Araujo MD ALT [Catalytic activity/Vol] 29 U/L Normal 5-41 [facility] Comment on above: Performed By: #### CP #### [facility] [address] [place] [address] [employer]: Frank Mercado MD #### B12, FE #### [address] [address] [employer]: Rainer Araujo MD Anion gap [Moles/Vol] 10 mmol/L Normal [facility] Comment on above: Performed By: #### CP #### [facility] [address] [place] [id number] [employer]: Frank Mercado MD #### B12, FE #### [address] [address] [employer]: Rainer Araujo MD AST [Catalytic activity/Vol] 26 U/L Normal <40 [facility] Comment on above: Performed By: #### CP #### [facility] [address] [place] [id number] Armhole Raiser Lockstitch: Frank Mercado MD #### B12, FE #### [address] [address] Armhole Raiser Lockstitch: Rainer Araujo MD BUN/CRE Ratio 24 High 9-20 [facility] Comment on above: Performed By: #### CP #### [facility] [address] [place] [address] Armhole Raiser Lockstitch: Frank Mercado MD #### B12, FE #### [address] [address] Armhole Raiser Lockstitch: Rainer Araujo MD Calcium [Mass/Vol] 8.2 mg/dL Low 8.6-10.4 [facility] Comment on above: Performed By: #### CP #### [facility] [address] [place], [place] [phone] Armhole Raiser Lockstitch: Frank Mercado MD #### B12, FE #### [address] [address] Armhole Raiser Lockstitch: Rainer Araujo MD Chloride [Moles/Vol] 115 mmol/L High 98-107 [facility] Comment on above: Performed By: #### CP #### [facility] [address] [place] [address] Armhole Raiser Lockstitch: Frank Mercado MD #### B12, FE #### [address] [address] Armhole Raiser Lockstitch: Rainer Araujo MD CO2 [Moles/Vol] 17 mmol/L Low 20-31 [facility] Comment on above: Performed By: #### CP #### [facility] [address] [place] [address] [place] [place], [place] [phone] Armhole Raiser Lockstitch: Frank Mercado MD #### B12, FE #### [address] [address] Armhole Raiser Lockstitch: Rainer Araujo MD Creatinine [Mass/Vol] 1.11 mg/dL Normal 0.70-1.20 [facility] Comment on above: Performed By: #### CP #### [facility] [address] [place] [address] [place] [address] Armhole Raiser Lockstitch: Frank Mercado MD #### B12, FE #### [address] [address] Armhole Raiser Lockstitch: Rainer Araujo MD GFR, Amer >60 Normal >60 [facility] Comment on above: Performed By: #### CP #### [facility] [address] [place], [place] [id number] Armhole Raiser Lockstitch: Frank Mercado MD #### B12, FE #### [address] [address] Armhole Raiser Lockstitch: Rainer Araujo MD GFR,non Amer >60 Normal >60 [facility] Comment on above: Performed By: #### CP #### [facility] [address] [place], [place] [phone] Armhole Raiser Lockstitch: Frank Mercado MD #### B12, FE #### [address] [address] Armhole Raiser Lockstitch: Rainer Araujo MD Glucose [Mass/Vol] 103 mg/dL High 70-99 [facility] Comment on above: Performed By: #### CP #### [address] [place] [address] Armhole Raiser Lockstitch: Frank Mercado MD #### B12, FE #### [address] [address] Armhole Raiser Lockstitch: Rainer Araujo MD Potassium [Moles/Vol] 4.1 mmol/L Normal 3.7-5.3 [facility] Comment on above: Performed By: #### CP #### [facility] [address] [place] [address] [place] [address] Armhole Raiser Lockstitch: Frank Mercado MD #### B12, FE #### [address] [address] Armhole Raiser Lockstitch: Rainer Araujo MD Sodium [Moles/Vol] 142 mmol/L Normal 135-144 [facility] Comment on above: Performed By: #### CP #### [facility] [address] [place] [address] [place] [address] Armhole Raiser Lockstitch: Frank Mercado MD #### B12, FE #### [address], [place] [id number] Armhole Raiser Lockstitch: Rainer Araujo MD Staging: Normal [facility] Comment on above: Result Comment: Stage 1: Some kidney dam age normal GFR Stage 2: Mild kidney damage GFR 60-89 Stage 3: Moderate kidney damage GFR 30-59 Stage 4: Severe kidney damage GFR 15-29 Stage 5: Severe kidney damage GFR <15 ESRD - chronic treatment by dialysis or transplant Performed By: #### C P #### [facility] [address] [place] [address] [place], [place] [phone] Armhole Raiser Lockstitch: Frank Mercado MD #### B12, FE #### [address] [id number] Armhole Raiser Lockstitch: Rainer Araujo MD Urea nitrogen [Mass/Vol] 27 mg/dL High 8-23 [facility] Comment on above: Performed By: #### CP #### [address] [place], [place] [id number] Armhole Raiser Lockstitch: Frank Mercado MD #### B12, FE #### [address] [id number] Armhole Raiser Lockstitch: Rainer Araujo MD Vital Signs Date Time Vital Sign Value Performing Clinician Facility 11-04-2023 15:54-0500 Body height 177.8 cm Park Yoder BALANCE BRIDGE ASSEMBLER Work Phone: [facility] 11-04-2023 15:54-0500 Body mass index (BMI) [Ratio] 34.47 kg/m2 Park Yoder BALANCE BRIDGE ASSEMBLER Work Phone: [facility] 11-04-2023 15:54-0500 Body temperature 97.11 [degF] Park Yoder BALANCE BRIDGE ASSEMBLER Work Phone: [facility] 11-04-2023 15:54-0500 Body weight 108.95 kg Park Yoder BALANCE BRIDGE ASSEMBLER Work Phone: [facility] 11-04-2023 15:54-0500 Diastolic blood pressure 78 mm[Hg] Park Terrazasholz BALANCE BRIDGE ASSEMBLER Work Phone: [facility] 11-04-2023 15:54-0500 Heart rate 66 /min Park Paresh BALANCE BRIDGE ASSEMBLER Work Phone: [facility] 11-04-2023 15:54-0500 Respiratory rate 18 /min Park Paresh BALANCE BRIDGE ASSEMBLER Work Phone: [facility] 11-04-2023 15:54-0500 SaO2% (BldA) [Mass fraction] 97 % Park Paresh BALANCE BRIDGE ASSEMBLER Work Phone: [facility] 11-04-2023 15:54-0500 Systolic blood pressure 118 mm[Hg] Park Mikez BALANCE BRIDGE ASSEMBLER Work Phone: [facility] 10-19-2023 15:01-0500 Blood Pressure Location Puneet BRIGGS [facility] 10-19-2023 15:01-0500 Diastolic blood pressure 60 mm[Hg] Puneet BRIGGS [facility] 10-19-2023 15:01-0500 Heart rate 64 /min Puneet BRIGGS [facility] 10-19-2023 15:01-0500 Respiratory rate 16 /min Puneet BRIGGS [facility] 10-19-2023 15:01-0500 Systolic blood pressure 109 mm[Hg] Puneet BRIGGS [facility] 04-13-2023 15:59-0400 Blood Pressure Location Puneet BRIGGS [facility] 04-13-2023 15:59-0400 Diastolic blood pressure 80 mm[Hg] Puneet BRIGGS [facility] 04-13-2023 15:59-0400 Heart rate 68 /min Puneet BRIGGS [facility] 04-13-2023 15:59-0400 Respiratory rate 16 /min Puneet BRIGGS [facility] 04-13-2023 15:59-0400 Systolic blood pressure 130 mm[Hg] Puneet BRIGGS [facility] 11-04-2022 14:37-0500 Blood Pressure Location Puneet BRIGGS [facility] 11-04-2022 14:37-0500 Diastolic blood pressure 69 mm[Hg] Puneet BRIGGS [facility] 11-04-2022 14:37-0500 Heart rate 68 /min Puneet BRIGGS [facility] 11-04-2022 14:37-0500 Systolic blood pressure 118 mm[Hg] Puneet BRIGGS [facility] 05-19-2022 15:59-0400 Blood Pressure Location Puneet BRIGGS [facility] 05-19-2022 15:59-0400 Diastolic blood pressure 66 mm[Hg] Puneet BRIGGS [facility] 05-19-2022 15:59-0400 Heart rate 59 /min Puneet BRIGGS [facility] 05-19-2022 15:59-0400 Respiratory rate 16 /min Puneet BRIGGS [facility] 05-19-2022 15:59-0400 Systolic blood pressure 117 mm[Hg] [facility]une[facility]IGGS [facility] Encounter Date Encounter Type Care Provider Facility Start: 04-27-2024 End: 04-27-2024 ambulatory YISEL MITCHELL [facility] Start: 04-06-2024 End: 04-06-2024 ambulatory LITO GANNON Not Available Start: 03-30-2024 End: 03-30-2024 ambulatory PARK AICHHOLZ Not Available Start: 02-18-2024 End: 02-18-2024 ambulatory PARK AICHHOLZ Not Available Start: 11-04-2023 End: 11-04-2023 ambulatory PARK AICHHOLZ Not Available Start: 11-04-2023 End: 11-04-2023 Office outpatient visit 15 minutes Park Aichnicolettez BALANCE BRIDGE ASSEMBLER Work Phone: [facility] Comment on above: 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); BMI 37.0-37.9, adult; Nonischemic cardiomyopathy (CMS/HCC); Primary hypertension (CMS/HCC); Chronic systolic heart failure (CMS/HCC); H/O bariatric surgery; Mixed hyperlipidemia (CMS/HCC) Start: 11-04-2023 Bamboo flowsheet Park Aichholz BALANCE BRIDGE ASSEMBLER Work Phone: [facility] Start: 11-04-2023 Bamboo flowsheet Park Aichholz BALANCE BRIDGE ASSEMBLER Work Phone: [facility] Start: 10-19-2023 ambulatory Puneet Dykesi ty:JAYASHREE [place] Start: 10-19-2023 End: 10-19-2023 Patient encounter procedure [facility]une[facility]IGGS [facility] Start: 04-13-2023 End: 04-14-2023 ambulatory Puneetyann BRIGGS Facility:[facility] [place] Start: 04-13-2023 End: 04-13-2023 Patient encounter procedure Puneet BRIGGS [facility] [place] Start: 03-18-2023 End: 03-19-2023 ambulatory Puneet BRIGGS Facility:[facility] [place] Start: 03-18-2023 End: 03-18-2023 Patient encounter procedure Puneet BRIGGS [facility] [place] Start: 11-24-2022 ambulatory Puneet R BRIGGS Facili ty:[facility] [place] Start: 11-21-2022 End: 11-22-2022 ambulatory LILIAAN YODER Facility:[facility] Start: 11-04-2022 End: 11-05-2022 ambulatory Puneetyann BRIGGS Facility:[facility] [place] Start: 11-04-2022 End: 11-04-2022 Patient encounter procedure Puneet BRIGGS [facility] [place] Start: 09-12-2022 End: 09-12-2022 ambulatory DEANNE OBRIEN . Facility:[facility] Start: 05-19-2022 End: 05-20-2022 ambulatory Puneetyann BRIGGS Facility:[facility] [place] Start: 05-19-2022 End: 05-19-2022 Patient encounter procedure Puneet BRIGGS [facility] [place] Start: 05-16-2022 End: 05-17-[address] DOCTOR HOWE Facility:[facility] Start: 04-30-2022 End: 04-30-[address] CASSIDY DILLON Facility:[facility] Start: 03-07-2022 End: 03-08-2022 ambulatory LILIANA YODER Facility:[facility] Start: 01-01-2022 End: 01-01-2022 Patient encounter procedure Ary ARTEAGA [facility] [place] Start: 12-18-2021 End: 12-18-[address] ARY ARTEAGA . 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 Comment on above: Performed By: #### PSAD #### [facility] [address] [address] [address] Santhosh Francois Start: 11-04-2022 Cystoscopy Puneet BRIGGS Start: 05-16-[address] PUNEET BRIGGS . Comment on above: Performed By: #### PSAD #### [facility] [address] [place] [address] Dr. Santhosh Francois Start: 12-18-2021 Colonoscopy Ary [...] Screening for malign ant neoplasm of colon [facility] Start: 05-29-2023 Influenza vaccination Influenza Vacc ine (#1) [facility] Start: 11-28-1963 Pneumococcal Vaccine : 65+ Years (1 - PCV) Pneumococcal Vaccine: 65+ Years (1 - PCV) [facility] Start: 1955 Screening for malign ant neoplasm of colon [facility] Immunizations Immunization Date Immunization Notes Care Provider Fa [facility] 08-12-2023 Influenza, High-dose Seasonal, Quadrivalent, Preservative Free 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 Phone: [facility] 07-29-2021 influenza virus vaccine, unspecified formulation Ary ARTEAGA [facility] [place] 02-13-2021 SARS-CoV-2 (COVID-19 ) mRNA BNT-162i3 jesse BRIGGS [facility] 01-23-2021 SARS-CoV-2 (COVID-19 ) mRNA BNT-162b2 jesse BRIGGS [facility] 09-28-2020 SARS-CoV-2 (COVID-19 ) mRNA BNT-162b2 vax Ary ARTEAGA [facility] [place] 07-02-2020 influenza virus vaccine, unspecified formulation Ary ARTEAGA [facility] [place] Payers Date Payer Category Payer Unknown 1957 Unknown [id number] 1955 Unknown [id number] 2.16.84 [id number] 1957 Unknown [id number] 2.16.84 0.1.652508.3.579.2.593 1957 Unknown [id number] 2.16.84 0.1.667274.3.579.2.593 1957 Unknown [id number] 2.16.84 0.1.155439.3.579.2.593 1957 Unknown [id number] 2.16.84 0.1.168204.3.579.2.593 1957 Unknown [id number] 2.16.84 0.1.656784.3.579.2.593 1957 Unknown [id number] 2.16.84 0.1.131927.3.579.2.593 1957 Unknown [id number] 2.16.84 0.1.674948.3.579.2.593 1957 Unknown [id number] 2.16.84 0.1.011579.3.579.2.593 1957 Unknown [id number] 2.16.8 40.1.932673.3.579.2.727 1957 Unknown [id number] 2.16.8 40.1.547074.3.579.2.727 1957 Unknown [id number] 2.16.8 40.1.346013.3.579.2.727 1957 Unknown [id number] 2.16.8 40.1.685769.3.579.2.727 1957 Unknown [id number] 2.16.8 40.1.087329.3.579.2.727 1957 Unknown [id number] 2.16.8 40.1.059117.3.579.2.727 1957 Unknown [id number] 2.16.84 0.1.529362.3.579.2.1259 1957 Unknown [id number] 2.16.84 0.1.403292.3.579.2.1259 1957 Unknown [id number] 2.16.84 0.1.259212.3.579.2.1259 1957 Unknown [id number] 2.16.84 0.1.902569.3.579.2.1259 1957 Unknown [id number] 2.16.84 0.1.457127.3.579.2.1259 1957 Unknown [id number] 2.16.84 0.1.553243.3.579.2.1259 1957 Unknown [id number] 2.16.8 40.1.428680.3.579.2.1286 Social History Date Type Detail Facility Start: 12-06-2021 End: 10-26-2023 Tobacco smoking status Never smoked tobacco (finding) [facility] [place] Tobacco smoking status Never [facility] [place] Start: 10-26-2023 End: 11-04-2023 Sex Assigned At Male General Surgery [facility] Start: 10-19-2023 Tobacco smoking status Light t obacco smoker (finding) [facility] Start: 10-26-2023 End: 11-04-2023 History of Social function [facility] Start: 1955 Sex Assigned At Not on file [facility] Start: 11-04-2023 Alcohol intake Ex-drinker (finding) [facility] Start: 11-04-2023 Alcohol Comment caffine: 3 cups lucretia y [facility] Functional Status Date Assessment Result Facility 10-19-2023 Functional Status Yes [facility] 04-13-2023 Functional Status N/A [facility] 11-04-2022 Functional Status N/A [facility] 05-19-2022 Functional Status N/A [facility] Clinical Notes 12-18-2021 to 11-04-2023 Park Yoder [...] cont current meds documented in this encounter [facility] 10-19-2023 Hospital Discharge instructions Patient Education 10/19/2023 [...] urethra. Follow these instructions at home: Take zfcc-exe-fzckjce and prescription medicines only as told by [...] provider. Document Revised: 04/02/2022 Document Reviewed: 04/02/2022 Etable Patient Education 2022 [employer]. Follow Up Care 04/13/2023 16:26:55 With:ANAHI MCDONALD, Puneet Ross, DELANEY Address: [facility] [address], [place] [address]- When:Within 1 Year(s) Comments:w/PSA [facility] [place] 04-13-2023 Hospital Discharge instructions Patient [...] similar to normal prostate cells (well differentiated). [place] 7: This indicates that the cancer cells look somewhat similar to normal prostate cells (moderately differentiated). [place] 8, 9, or 10: This indicates that [...] stress of having cancer. General instructions Take trvn-ufb-ghmhenk and prescription medicines only as told by your health care provider. If you have to go to the hospital, notify your cancer specialist (oncologist). Keep all follow-up visits. This is important. Where to find more information [place] [employer]: www.cancer.org [place] [employer] Oncology: www.cancer.net National Cancer [place]: www.cancer.gov Contact a health care provider if: [...] provider. Document Revised: 12/11/2021 Document Reviewed: 12/11/2021 Etable Patient Education 2022 [employer]. Follow Up Care 03/16/2023 14:05:40 With:ANAHI MCDONALD, Puneet Ross, URL Address: [facility] [address] , [place] [address]- [phone] When: Unknown Comments:6 mos w/ PSA and PVR [facility] 11-03-2022 Hospital Discharge instructions Patient Education 11/03/2022 [...] urethra. Follow these instructions at home: Take dqkc-ezy-anrfrtm and prescription medicines only as told by [...] 09/14/2006 Document Revised: 08/09/2019 Document Reviewed: 10/19/2017 Etable Patient Education [employer] Follow Up Care 10/13/2022 13:53:44 With:ANAHI MCDONALD, Puneet Ross URL Address: [facility] [address] , [place] [address]- When: Unknown [facility] 05-19-2022 Hospital Discharge instructions Patient Education 05/19/2022 16:24:13 Prostatitis, Ssfd-po-Qneg Prostatitis Prostatitis is swelling of the prostate gland. The prostate helps to make semen. It is below a man's bladder, in front of the rectum. There are different types of prostatitis. Follow these instructions at home: Take xnlb-mfk-ipaomgm and prescription medicines only as told by [...] 03/15/2013 Document Revised: 08/27/2018 Document Reviewed: 06/04/2017 Etable Patient Education [employer] 05/19/2022 16:24:11 Calorie Counting for Weight Loss [...] 09/14/2006 Document Revised: 06/03/2019 Document Reviewed: 08/14/2017 Etable Patient Education 2020 [employer]. Follow Up Care 11/22/2021 12:25:13 With:ANAHI MCDONADL, Puneet Ross, URL Address: [address] [place] [address] [place] [address]- Business (1) When:Within 6 Month(s) Comments:w/FESTUS [facility] 12-18-2021 Note OPERATIVE NOTE PREOPERATIVE DIAGNOSIS: Iron [...] to the poor prep. CC: Park Yoder, DIRECT MAIL MANAGER IF Signed and Approved by: DR ARY ARTEAGA . 12/20/2021 11:57:00 [facility] Evaluation + Plan note Future Appointments Appointment Date:05/19/2022 03:15:00 PM Scheduled Provider:Puneet BRIGGS MD Location:[facility] Appointment Type:URO Office Visit [facility] [place] Evaluation + Plan note Future Appointments Appointment Date:11/24/2022 03:30:00 PM Scheduled Provider:Puneet BRIGGS MD Location:[facility] Appointment Type:URO Office Visit Diagnostic Tests PendingPSA Total 05/19/22 [facility] Evaluation + Plan note Future Appointments Appointment Date:03/18/2023 08:30:00 AM Scheduled Provider:Puneet BRIGGS MD Location:[facility] Appointment Type:URO Office Visit Diagnostic Tests PendingUroVysion Fish and Urine Cyto ([facility]) 11/04/22 [facility] Evaluation + Plan note Future Appointments Appointment Date:03/23/2023 03:00:00 PM Scheduled Provider:Puneet BRIGGS MD Location:[facility] Appointment Type:URO Office Visit [facility] Evaluation + Plan note Future Appointments Appointment Date:10/19/2023 02:45:00 PM Scheduled Provider:Puneet BRIGGS MD Location:[facility] Appointment Type:URO Office Visit Diagnostic Tests PendingPSA Total 04/13/23 [facility] Evaluation + Plan note Future Appointments Appointment Date:10/24/2024 03:00:00 PM Scheduled Provider:Puneet BRIGGS MD Location:[facility] Appointment Type:URO Office Visit Diagnostic Tests PendingPSA Total 10/19/23 [facility] Evaluation note Diagnosis Iron deficiency anemia following bariatric surgery- Primary BMI 37.0-37.9, adult Nonischemic cardiomyopathy (CMS/HCC) Other primary cardiomyopathies Primary hypertension (CMS/HCC) Unspecified essential hypertension Chronic systolic heart failure (CMS/HCC) Chronic systolic heart failure H/O bariatric surgery Mixed hyperlipidemia (CMS/HCC) Mixed hyperlipidemia documented in [facility] Narrative No data available for this section [facility] [place] [facility] Discharge instructions No data available for this section [facility] [place] [facility] note No data available for this section [facility] Summary Purpose Family History No Family History [...] section and content) DATE CREATED AUTHOR 03/18/2018 [facility] DATE CREATED AUTHOR AUTHOR'S ORGANIZ ATION 04/15/2019 [facility] DATE CREATED AUTHOR AUTHOR'S ORGANIZ ATION 12/16/2021 [facility] DATE CREATED AUTHOR AUTHOR'S ORGANIZ ATION 11/28/2022 [facility] [place] [facility] DATE CREATED AUTHOR AUTHOR'S ORGANIZ ATION 04/14/2023 Oakley David [facility] DATE CREATED AUTHOR AUTHOR'S ORGANIZ ATION 04/12/2024 [facility] EPIC DATE CREATED AUTHOR AUTHOR'S ORGANIZ ATION 04/29/2024 [facility] Care Team (unrecognized sect ion and content) Medical Research Scientist Relationship Specialty Start Date End Date Kenny Hartley MD [address] [place] [phone] PCP - General Family Medicine 10/26/23 Medical Research Scientist Relationship Specialty Start Date End Date Kenny Hartley MD [address] [place] [phone] PCP - General Family Medicine 10/26/23 FOR [...] BE BASED ON THE PRIMARY CLINICAL RECORDS. [employer] provides no warranty or guarantee of the accuracy or completeness of information in this document.
[2024-05-13 14:06] LABS: Albumin Level 3.6 g/dL (3.4-5.0); BUN Creatinine Ratio 29.4; Calcium 8.3 mg/dL (8.5-10.1); Carbon Dioxide 22.6 mmol/L (21.0-32.0); Chloride 109 mmol/L (98-107); Estimated GFR (African America >60 (>=60); Estimated GFR (Non-African Ame >60 (>=60); Glucose 86 mg/dL (74-106); Magnesium 2.1 mg/dL (1.8-2.4); Phosphorus 3.2 mg/dL (2.6-4.7); Potassium 4.6 mmol/L (3.5-5.1); Sodium 138 mmol/L (136-145)
[2024-05-13 16:41] LABS: Calcium Urine Random <5.0 mg/dL (5.1-21.0); Creatinine Urine Random 56.28 mg/dL (20.00-300.00)
[2024-05-14 06:35] LABS: Calcium 24 Hour Urine 131.2 mg/24hr (100.0-300.0); Creatinine 24 Hour Urine 1477.35 mg/24 hr (1000.0-2000.00); Total Volume 24 Hour Urine 2625 mL/24hr
== END 2024-05-13 11:30 | disposition home or self-care (01) ==
LOC: LAB 11:33
PROVIDERS: PCP Nurse Practitioner; Visit Provider Internal Medicine
DX: R79.89 Other specified abnormal findings of blood chemistry (principal); E21.1 Secondary hyperparathyroidism, not elsewhere classified; E55.9 Vitamin D deficiency, unspecified
CPT/HCPCS: 36415; 80069; 81050; 82306; 82310; 82340; 82570; 83735; 83970

== ENCOUNTER 2024-06-07 07:30 | Outpatient (OUT) | payer BC, SELFPAY ==
--- OUTSIDE RECORDS SUMMARY | 2024-06-07 07:33 | XMS_ITS | CCD ---
Author Organization [facility] Care Team Providers Care Director Radio News Name Role Phone PHYSICIAN, DEFAULT Unavailable Unavailable PHYSICIAN, DEFAULT Unavailable Unavailable TATIANAHPARK ANGUIANO. Referring Unavailable TATIANAHQUIANA PARK J. Primary Care Unavailable TATIANAHQUIANA PARK J Primary Care Physician ANAHI Jackson, DR NGUYỄN Consulting Unavailable BRIGGS ., DR NGUYỄN Admitting Unavailable BRIGGS ., DR NGUYỄN Attending Unavailable AICHHOLZ, MANAGER UTILITY PARK Primary Care Unavailable MISC, DR AYERS Consulting Unavailable MISC, DR AYERS Admitting Unavailable MISC, DR AYERS Attending Unavailable AICHHOLZ, MANAGER UTILITY PARK Primary Care Unavailable AICHHOLZ, MANAGER UTILITY PARK Consulting Unavailable AICHHOLZ, MANAGER UTILITY PARK Primary Care Unavailable BRIGGS ., DR NGUYỄN Admitting Unavailable BRIGGS ., DR NGUYỄN Attending Unavailable ZIEBER, DR CASSIDY Ross Consulting Unavailable ELI DALAL Attending Unavailable ELI DALAL Admitting Unavailable AICHHOLZ, MANAGER UTILITY PARK Primary Care Unavailable JENNIFER DRAKE Consulting Unavailable CAMILLE .DEANNE Consulting UnavailISACC Sidhu Admitting Unavailable ISACC BEJARANO Attending Unavailable AICHHOLZ, MANAGER UTILITY PARK Primary Care Unavailable ISACC BEJARANO Consulting Unavailable AICHHOLZ, MANAGER UTILITY PARK Primary Care Unavailable NILL ., DR MCALLISTER Admitting Unavailable NILL ., DR MCALLISTER Attending Unavailable NILL ., DR MCALLISTER Consulting Unavailable AICHHOLZ, MANAGER UTILITY PARK Primary Care Unavailable NILL ., DR MCALLISTER Admitting Unavailable NILL ., DR MCALLISTER Attending Unavailable TAMERAUBGRACE LOPEZ Consulting Unavailable JUAN ORO Consulting Unavailable AICHHOLZ, MANAGER UTILITY PARK Consulting Unavailable AICHHOLZ, MANAGER UTILITY PARK Primary Care Unavailable AICHHOLZ, MANAGER UTILITY PARK Admitting Unavailable AICHHOLZ, MANAGER UTILITY PARK Attending Unavailable AICHHOLZ, MANAGER UTILITY PARK Consulting Unavailable AICHHOLZ, MANAGER UTILITY PARK Admitting Unavailable AICHHOLZ, MANAGER UTILITY PARK Attending Unavailable AICHHOLZ, LLIIANA PARK Primary Care Unavailable Puneet BRIGGS Attending Unavailable ANAHI, Puneet Ross Attending Unavailable ANAHI, Puneet Ross Attending Unavailable Puneet BRIGGS Attending Unavailable NAAHI, Puneet Ross Attending Unavailable ANAHI, Puneet Ross Attending Unavailable Kenny Hartley MD Primary Care Provider [phone] PARK YODER Attending Unavailable PARESH, PARK Attending [...] procedure, # 2 tab(s), Refills(s) 0, Pharmacy: [id number], 176, cm, 05/19/22 [...] 05-19-2022 10-24-2019 Chronic Other aftercare (1 source) detention (current) use of aspirin; Translations: [SHELTER CURRENT USE OF ASPIRIN] Onset: 09-15-2022 Episodic Other aftercare (1 source) 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 This is called the [place] score and the total score can range [...] to normal prostate cells (moderately differentiated). ? [place] 8, 9, or 10: This indicates that [...] external be (more content not included)... Normal [facility] Reminderson 04-13-2023 Reminders - From: Shala Soares To: EU - Recalls Briggs; Sent: 04/13/2023 16:27:00 EDT Show up: 09/13/2023 15:26:00 EST Subject: PSA Reminder Message Please Remember to:_get PSA (at [facility]) prior to next appt. Normal [facility] Urology Office/Clinic Noteon 04-13-2023 Urology Office/Clinic [...] [facility] [address], [place] [address] [phone] Additional Instructions: 6 mos w/ PSA and [...] of prostat (more content not included)... Normal [facility] Comment on above: Result Comment: Electronically Signed By : Puneet BRIGGS MD\.br\Date and Time Signed: 04/13/23 16:26 EDT\.br\Electronically Co-Signed By: Shala Soares\.br\Date and Time Co-Signed: 04/13/23 16:25 EDT Lab Reportson 11-30-2022 Lab Reports [id number]#[id number]:127 Normal [facility] UroVysion Fish and Urine Cyt o ([facility])on 11-13-2022 UVFISH & UC Diagnosis Info Invalid Interpretation Code [facility] Comment on above: Result Comment: A:Urine,Urine:Voided Diagnosis [...] 170 Hematuria: Gross Description Site ID:A color Wilkinson fixative Alcohol Received 80 mls of clear orange fluid with the patient's name and, Urine on the vial. Electronically signed by : on: 11/13/2022 08:34:30 Performed By: #### 1 [id number] ####[facility] [address] [place] [address] Consent for Procedure/Surger yon 11-05-2022 Consent for Procedure/Surge ry [id number]#[id number]:127 Normal [facility] UroVysion Fish and Urine Cyt o ([facility])on 11-04-2022 UVUC Method of Extraction Bladder Urine Normal [facility] Comment on above: Performed By: #### [id number] ####[facility] [address] [place] [address] UVUC Number of Jars 1 Invalid Interpretation Code [facility] Comment on above: Performed By: #### [id number] ####[facility] [address] [place] [address] UV[facility] Specimen Urine Normal [facility] Comment on above: Performed By: #### [id number] ####[facility] [address] [place] [address] [facility] Type of Service Global Normal [facility] Comment on above: Performed By: #### [id number] ####[facility] [address] [place] [address] Urology Office/Clinic Noteon 11-04-2022 Urology Office/Clinic Note [...] blood and clots on 09/12/22. Went to [facility] ER, they did urine cx. Was [...] Urology [address], [place] [address]- Additional Instructions: f/u 4 mos Patient Education [...] of lower (more content not included)... Normal [facility] Comment on above: Result Comment: Electronically Signed [...] Follow these instructions at home: ? Take zwdw-vyt-qnoxawq and prescription medicines only as told by [...] You d (more content not included)... Normal [facility] Pre-Certification Formon Pre-Certificati on Form [id number]#[id number]:127 Normal [facility] ER URINE PROFILEon 2 Bilirubin Ql (U) Negative Normal NEGATIVE [facility] Comment on above: Performed By: #### NICOL ERUR #### [facility] [address] [place] [address] Dr. Santhosh Francois Clarity (U) CLEAR Normal CLEAR [facility] Comment on above: Performed By: #### NICOL ERUR #### [facility] [address] [place] [address] Dr. Santhosh Francois Color (U) LT. YELLOW Normal YELLOW [facility] Comment on above: Performed By: #### NICOL ERUR #### [facility] [address] [place] [address] Dr. Santhosh PALACIOS A micrscopic examina tion will be performed if indicated. Normal [facility] Comment on above: Performed By: #### NICOL ERUR #### [facility] [address] [place] [address] Dr. Santhosh Francois Glucose Ql (U) Negative Normal NEGATIVE [facility] Comment on above: Performed By: #### NICOL ERUR #### [facility] [address] [place] [address] Dr. Santhosh Francois Hemoglobin Ql (U) LARGE Abnormal NEGATIVE [facility] Comment on above: Performed By: #### NICOL ERUR #### [facility] [address] [place] [address] Dr. Santhosh Francois Ketones Ql (U) Negative Normal NEGATIVE [facility] Comment on above: Performed By: #### NICOL ERUR #### [facility] [address] [place] [address] Dr. Santhosh Francois LEUKOCYTES Negative Normal NEGATIVE [facility] Comment on above: Performed By: #### NICOL ERUR #### [facility] [address] [place] [address] Dr. Santhosh Francois Nitrite Ql (U) Negative Normal NEGATIVE [facility] Comment on above: Performed By: #### NICOL, ERUR #### [facility] [address] [place] [address] Dr. Santhosh Francois pH (U) 5.0 [pH] Normal 5-9 [facility] Comment on above: Performed By: #### NICOL, ERUR #### [facility] [address] [place] [address] Dr. Santhosh Francois SPEC GRAVITY 1.010 Normal 1.005-<=1.02 5 [facility] Comment on above: Performed By: #### NICOL ERUR #### [facility] [address] [place] [address] Dr. Santhosh Francois UA PROTEIN TRACE Normal NEGATIVE/ TRACE [facility] Comment on above: Performed By: #### NICOL ERUR #### [facility] [address] [place] [address] Dr. Santhosh Francois UR MICRO IND INDICATED Normal [facility] Comment on above: Performed By: #### NICOL ERUR #### [facility] [address] [place] [address] Dr. Santhosh Francois Urobilinogen Qn (U) 0.2 {Malini'U}/dL Normal 0.2 - 1.0 [facility] Comment on above: Performed By: #### NICOL ERUR #### [facility] [address] [place] [address] Dr. Santhosh Francois URINE MICROSCOPIC ONLYon BACTERIA NONE SEEN Normal NONE SEEN [facility] Comment on above: Performed By: #### CBC #### [facility] [address] [place] [address] Dr. Santhosh Francois Bacteria identified Cx Nom (U) NOT INDICATED Normal [facility] Comment on above: Performed By: #### CBC #### [facility] [address] [place] [address] Dr. Santhosh Francois CAST NONE SEEN Normal NONE SEEN [facility] Comment on above: Performed By: #### CBC #### [facility] [address] [place] [address] Dr. Santhosh Francois Crystals LM Nom (Urine sed) NONE SEEN Normal NONE SEEN [facility] Comment on above: Performed By: #### CBC #### [facility] [address] [place] [address] Dr. Santhosh Francois Epithelial cells LM Ql (Urine sed) RARE Normal NONE SEEN /RARE [facility] Comment on above: Performed By: #### CBC #### [facility] [address] [place] [address] Dr. Santhosh Francois MUCOUS NONE SEEN Normal NONE SEEN [facility] Comment on above: Performed By: #### CBC #### [facility] [address] [place] [address] Dr. Santhosh Francois RBC 10-20 Abnormal 0-2 [facility] Comment on above: Performed By: #### CBC #### [facility] [address] [place] [address] Dr. Santhosh Francois WBC NONE SEEN Normal NONE SEEN [facility] Comment on above: Performed By: #### CBC #### [facility] [address] [place] [address] Dr. Santhosh Francois Lab Reportson 05-20-2022 Lab Reports [id number]:127 Normal [facility] Ambulatory Visit Summaryon 0 05-19-2022 Ambulatory Visit Summary SHABNAM BURGESS :1955 Visit Date:05/19/2022 Ambulatory Visit Instructions Your Diagnosis Prostate cancer Chronic prostatitis BPH with urinary obstruction Kidney stones BMI 36.0-36.9,adult Other obstructive and reflux uropathy Tests Performed Urnls Dip Stick Auto w/o Microscopy POC 40543 Your Care Team Attending Physician - ANAHI [...] MCDONALD, Puneet Ross Where: [facility] Patient Educationon 05-19-20 Patient Education Infectious Disease Prostatitis Prostatitis is swelling of the prostate gland. The prostate helps to make semen. It is below a man's bladder, in front of the rectum. There are different types of prostatitis. Follow these instructions at home: ? Take llru-lhs-kguwkfg and prescription medicines only as told by [...] 03/15/2013 Document Revised: 08/27/2018 Document Reviewed: 06/04/2017 [email or web address] Patient Education ? 2020 [employer]. Nutrition Calorie Counting for Weight Loss Calories [...] not leave (more content not included)... Normal [facility] Urology Office/Clinic Noteon 05-19-2022 Urology Office/Clinic Note [...] MCDONALD, Puneet Ross, DELANEY In 6 months [facility] [place] [id number] Business (1) Additional Instructions: w/PSA Patient Education Prostatitis, Tmtz-ss-Ghjf Calorie Counting for Weight Loss Carey Willett [...] Wine, Daily, (more content not included)... Normal [facility] Comment on above: Result Comment: Electronically Signed By : Puneet BRIGGS MD\.br\Date and Time Signed: 05/19/22 16:36 EDT\.br\Electronically Co-Signed By: Carey Gonzalez\.br\Date and Time Co-Signed: 05/19/22 16:34 EDT LIPID PROFILEon 05-16-2022 CHOL-HDL RATIO NORM SEE BELOW Normal [facility] Comment on above: Result Comment: 3.3 - 4.4 LOW RISK 4.4 - 7.1 AVERAGE RISK 7.1 - 11.0 MODERATE RISK >11.0 HIGH RISK Performed By: #### C BC #### [facility] [address] [address] [address] Santhosh Francois Cholesterol [Mass/Vol] 58 mg/dL Normal <=200 [facility] Comment on above: Performed By: #### CBC #### [facility] [address] [address] [address] Santhosh Francois Cholesterol in HDL [Mass/Vol] 38 mg/dL Critically low 40-60 [facility] Comment on above: Performed By: #### CBC #### [facility] [address] [address] [address] Santhosh Francois Cholesterol in LDL [Mass/Vol] 14.0 mg/dL Normal [facility] Comment on above: Performed By: #### CBC #### [facility] [address] [address] [address] Santhosh Francois Cholesterol.tot al/Cholesterol in HDL [Mass ratio] 1.5 {ratio} Normal [facility] Comment on above: Performed By: #### CBC #### [facility] [address] [address] [address] Santhosh Francois HDL NORMAL > or = 60 mg/dl - LO W CARDIOVASCULAR RISK <40 mg/dl - HIGH CARDIOVASCULAR RISK Normal [facility] Comment on above: Performed By: #### CBC #### [facility] [address] [address] [address] Santhosh Francois LDL CALC NORMAL SEE BELOW Normal [facility] Comment on above: Result Comment: <100 mg/dl OPTIMAL 100 - 129 mg/dl NEAR OR ABOVE OPTIMAL 130 - 159 mg/dl BORDERLINE HIGH 160 - 189 mg/dl HIGH >190 mg/dl VERY HIGH Performed By: #### C BC #### [facility] [address] [address] [address] Santhosh Francois Triglyceride [Mass/Vol] 30 mg/dL Normal <=150 [facility] Comment on above: Performed By: #### CBC #### [facility] [address] [address] [address] Santhosh Francois VLDL CALC 6.0 mg/dL Normal [facility] Comment on above: Performed By: #### CBC #### [facility] [address] [address] [address] Santhosh Francois PROF 14(COMP METB)on 022 Albumin [Mass/Vol] 3.6 g/dL Normal 3.4-5.0 [facility] Comment on above: Performed By: #### CBC #### [facility] [address] [place] [address] Dr. Santhosh Francois Albumin/Globuli n [Mass ratio] 1.1 {ratio} Normal [facility] Comment on above: Performed By: #### CBC #### [facility] [address] [address] [address] Santhosh Francois ALP [Catalytic activity/Vol] 145 U/L Critically high 46-116 [facility] Comment on above: Performed By: #### CBC #### [facility] [address] [address] [address] Santhosh Francois ALT [Catalytic activity/Vol] 102 U/L Critically high 16-63 [facility] Comment on above: Performed By: #### CBC #### [facility] [address] [address] [address] Santhosh Francois Anion gap [Moles/Vol] 12.7 mmol/L Normal [facility] Comment on above: Performed By: #### CBC #### [facility] [address] [address] [address] Santhosh Francois AST [Catalytic activity/Vol] 68 U/L Critically high 15-37 [facility] Comment on above: Performed By: #### CBC #### [facility] [address] [address] [address] Santhosh Francois Bilirubin [Mass/Vol] 1.0 mg/dL Normal 0.2-1.0 [facility] Comment on above: Performed By: #### CBC #### [facility] [address] [place] [address] Dr. Santhosh Francois Calcium [Mass/Vol] 8.0 mg/dL Critically low 8.5-10.1 [facility] Comment on above: Performed By: #### CBC #### [facility] [address] [place] [address] Dr. Santhosh Francois Chloride [Moles/Vol] 111 mmol/L Critically high 98-107 [facility] Comment on above: Performed By: #### CBC #### [facility] [address] [place] [address] Dr. Santhosh Francois CO2 [Moles/Vol] 20.6 mmol/L Critically low 21.0-32.0 [facility] Comment on above: Performed By: #### CBC #### [facility] [address] [place] [address] Dr. Santhosh Francois Creatinine [Mass/Vol] 0.96 mg/dL Normal 0.70-1.30 [facility] Comment on above: Performed By: #### CBC #### [facility] [address] [place] [address] Dr. Santhosh Francois EGFR-AF BURMESE >60 Normal >=60 [facility] Comment on above: Performed By: #### CBC #### [facility] [address] [place] [address] Dr. Santhosh Francois EGFR-NON AF BURMESE >60 Normal >=60 [facility] Comment on above: Performed By: #### CBC #### [facility] [address] [place] [address] Dr. Santhosh Francois Globulin (S) [Mass/Vol] 3.2 g/dL Normal [facility] Comment on above: Performed By: #### CBC #### [facility] [address] [place] [address] Dr. Santhosh Francois Glucose [Mass/Vol] 88 mg/dL Normal 74-106 [facility] Comment on above: Performed By: #### CBC #### [facility] [address] [address] [address] Santhosh Francois Potassium [Moles/Vol] 4.3 mmol/L Normal 3.5-5.1 [facility] Comment on above: Performed By: #### CBC #### [facility] [address] [place] [address] Dr. Santhosh Francois Protein [Mass/Vol] 6.8 g/dL Normal 6.4-8.2 [facility] Comment on above: Performed By: #### CBC #### [facility] [address] [place] [address] Dr. Santhosh Francois Sodium [Moles/Vol] 140 mmol/L Normal 136-145 [facility] Comment on above: Performed By: #### CBC #### [facility] [address] [place] [address] Dr. Santhosh Francois Urea nitrogen [Mass/Vol] 26.0 mg/dL Critically high 7.0-18.0 [facility] Comment on above: Performed By: #### CBC #### [facility] [address] [place] [address] Dr. Santhosh Francois Urea nitrogen/Creati nine [Mass ratio] 27.1 mg/mg Normal [facility] Comment on above: Performed By: #### CBC #### [facility] [address] [place] [address] Dr. Santhosh Francois ED Note-Physicianon 05-07-20 ED Note-Physician [id number]:127 Normal [facility] RAD - CT Reporton 05-06-2022 RAD - CT Report [id number]:127 Normal [facility] CBC AUTO DIFFon 04-30-2022 BASO # 0.0 103/ul Normal 0.0-0.1 [facility] Comment on above: Performed By: #### CBC #### [facility] [address] [address] [address] Santhosh Francois Basophils/100 WBC (Bld) 0.5 % Normal 0.2-2.0 [facility] Comment on above: Performed By: #### CBC #### [facility] [address] [address] [address] Santhosh Francois EO # 0.2 103/ul Normal 0.0-0.7 [facility] Comment on above: Performed By: #### CBC #### [facility] [address] [address] [address] Santhosh Francois Eosinophils/100 WBC (Bld) 2.9 % Normal 0.9-7.0 [facility] Comment on above: Performed By: #### CBC #### [facility] [address] [address] [address] Santhosh Francois Erythrocyte distribution width (RBC) [Ratio] 14.9 % Normal 11.0-15.0 [facility] Comment on above: Performed By: #### CBC #### [facility] [address] [address] [address] Santhosh Francois Hematocrit (Bld) [Volume fraction] 39.1 % Critically low 42.0-54.0 [facility] Comment on above: Performed By: #### CBC #### [facility] [address] [address] [address] Santhosh Francois Hemoglobin (Bld) [Mass/Vol] 12.2 g/dL Critically low 14.0-18.0 [facility] Comment on above: Performed By: #### CBC #### [facility] [address] [place] [address] Dr. Santhosh Francois IG # 0.01 10e3/ul Normal 0.00-0.03 [facility] Comment on above: Performed By: #### CBC #### [facility] [address] [place] [address] Dr. Santhosh Francois IG % 0.2 % Normal 0.0-0.5 [facility] Comment on above: Performed By: #### CBC #### [facility] [address] [place] [address] Dr. Santhosh Francois LYMPH # 2.0 103/ul Normal 1.2-3.8 [facility] Comment on above: Performed By: #### CBC #### [facility] [address] [place] [address] Dr. Santhosh Francois Lymphocytes/100 WBC (Bld) 32.6 % Normal 20.5-60.0 [facility] Comment on above: Performed By: #### CBC #### [facility] [facility] [address] [place] [address] Dr. Santhosh Francois MANUAL DIFF REQ NO Normal [facility] Comment on above: Performed By: #### CBC #### [facility] [address] [place] [address] Dr. Santhosh Francois MCH (RBC) [Entitic mass] 29.9 pg Normal 25.9-34.0 [facility] Comment on above: Performed By: #### CBC #### [facility] [address] [place] [address] Dr. Santhosh Francois MCHC (RBC) [Mass/Vol] 31.2 g/dL Normal 29.9-35.2 [facility] Comment on above: Performed By: #### CBC #### [facility] [address] [place] [address] Dr. Santhosh Francois MCV (RBC) [Entitic vol] 95.8 fL Critically high 80.0-94.0 [facility] Comment on above: Performed By: #### CBC #### [facility] [address] [place] [address] Dr. Santhosh Francois MONO # 0.5 103/ul Normal 0.3-0.8 [facility] Comment on above: Performed By: #### CBC #### [facility] [address] [place] [address] Dr. Santhosh Francois Monocytes/100 WBC (Bld) 7.9 % Normal 1.7-12.0 [facility] Comment on above: Performed By: #### CBC #### [facility] [address] [place] [address] Dr. Santhosh Francois NEUT # 3.5 103/ul Normal 1.4-6.5 [facility] Comment on above: Performed By: #### CBC #### [facility] [address] [place] [address] Dr. Santhosh Francois Neutrophils/100 WBC (Bld) 55.9 % Normal 43.0-75.0 [facility] Comment on above: Performed By: #### CBC #### [facility] [address] [place] [address] Dr. Santhosh Francois Platelet mean volume (Bld) [Entitic vol] 10.6 fL Normal 9.5-13.5 [facility] Comment on above: Performed By: #### CBC #### [facility] [address] [place] [address] Dr. Santhosh Francois PLT 125 103/ul Critically low 150-450 [facility] Comment on above: Performed By: #### CBC #### [facility] [address] [place] [address] Dr. Santhosh Francois RBC 4.08 106/ul Critically low 4.70-6.10 [facility] Comment on above: Performed By: #### CBC #### [facility] [address] [place] [address] Dr. Santhosh Francois WBC 6.2 103/ul Normal 4.0-11.0 [facility] Comment on above: Performed By: #### CBC #### [facility] [address] [place] [address] ABD/PELVIS WO CONon [...] CASSIDY DILLON Date: 2022-04-30 18:05 Normal [facility] CULTURE URINEon 04-30-2022 CULTURE URINE Culture Observations : NO GROWTH. Normal [facility] Comment on above: Performed By: #### URCX #### [facility] [address] [address] [address] Santhosh Francois ER URINE PROFILEon 2 Bilirubin Ql (U) Unable to perform testing due to color interference. Abnormal NEGATIVE [facility] Comment on above: Performed By: #### ERUR, UMICRO #### [facility] [address] [address] [address] Santhosh Francois Clarity (U) TURBID Abnormal CLEAR [facility] Comment on above: Performed By: #### ERUR, UMICRO #### [facility] [address] [place] [address] Dr. Santhosh Francois Color (U) RED Abnormal YELLOW [facility] Comment on above: Performed By: #### ERUR, UMICRO #### [facility] [address] [address] [address] Santhosh Francois ERUAHD A micrscopic examina tion will be performed if indicated. Normal [facility] Comment on above: Performed By: #### ERUR, UMICRO #### [facility] [address] [place] [address] Dr. Santhosh Francois Glucose Ql (U) Unable to perform te sting due to color interference. Abnormal NEGATIVE [facility] Comment on above: Performed By: #### ERUR, UMICRO #### [facility] [address] [place] [address] Dr. Santhosh Francois Hemoglobin Ql (U) Unable to perform testing due to color interference. Abnormal NEGATIVE [facility] Comment on above: Performed By: #### ERUR, UMICRO #### [facility] [address] [place] [address] Dr. Santhosh Francois Ketones Ql (U) Unable to perform te sting due to color interference. Abnormal NEGATIVE [facility] Comment on above: Performed By: #### ERUR, UMICRO #### [facility] [address] [place] [address] Dr. Santhosh Francois LEUKOCYTES Unable to perform te sting due to color interference. Abnormal NEGATIVE [facility] Comment on above: Performed By: #### ERUR, UMICRO #### [facility] [address] [address] [address] Santhosh Francois Nitrite Ql (U) Unable to perform te sting due to color interference. Abnormal NEGATIVE [facility] Comment on above: Performed By: #### ERUR, UMICRO #### [facility] [address] [address] [address] Santhosh Francois pH (U) 6.0 [pH] Normal 5-9 [facility] Comment on above: Performed By: #### ERUR, UMICRO #### [facility] [address] [address] [address] Santhosh Frnacois SPEC GRAVITY 1.025 Normal 1.005-<=1.02 5 [facility] Comment on above: Performed By: #### ERUR, UMICRO #### [facility] [address] [place] [address] Dr. Santhosh Francois UA PROTEIN Unable to perform te sting due to color interference. Normal NEGATIVE/ TRACE [facility] Comment on above: Performed By: #### ERUR, UMICRO #### [facility] [address] [place] [address] Dr. Santhosh Francois UR MICRO IND INDICATED Normal [facility] Comment on above: Performed By: #### CORRINAR, UMICRO #### [facility] [address] [place] [address] Dr. Santhosh Francois UROBILINOGEN Unable to perform te sting due to color interference. Normal 0.2 - 1.0 [facility] Comment on above: Performed By: #### SKYLAR, UMICRO #### [facility] [address] [place] [address] Dr. Santhosh Francois PROF CHEM 8 (BAS METB)on Anion gap [Moles/Vol] 12.6 mmol/L Normal [facility] Comment on above: Performed By: #### BMP #### [facility] [address] [place] [address] Dr. Santhosh Francois Calcium [Mass/Vol] 7.7 mg/dL Critically low 8.5-10.1 [facility] Comment on above: Performed By: #### BMP #### [facility] [address] [place] [address] Dr. Santhosh Francois Chloride [Moles/Vol] 114 mmol/L Critically high 98-107 [facility] Comment on above: Performed By: #### BMP #### [facility] [address] [place] [address] Dr. Santhosh Francois CO2 [Moles/Vol] 21.1 mmol/L Normal 21.0-32.0 [facility] Comment on above: Performed By: #### BMP #### [facility] [address] [address] [address] Santhosh Francois Creatinine [Mass/Vol] 1.12 mg/dL Normal 0.70-1.30 [facility] Comment on above: Performed By: #### BMP #### [facility] [address] [address] [address] Santhosh Francois EGFR-AF BURMESE >60 Normal >=60 [facility] Comment on above: Performed By: #### BMP #### [facility] [address] [address] [address] Santhosh Francois EGFR-NON AF BURMESE >60 Normal >=60 [facility] Comment on above: Performed By: #### BMP #### [facility] [address] [place] [address] Dr. Santhosh Francois Glucose [Mass/Vol] 90 mg/dL Normal 74-106 [facility] Comment on above: Performed By: #### BMP #### [facility] [address] [place] [address] Dr. Santhosh Francois Potassium [Moles/Vol] 3.7 mmol/L Normal 3.5-5.1 [facility] Comment on above: Performed By: #### BMP #### [facility] [address] [place] [address] Dr. Santhosh Francois Sodium [Moles/Vol] 144 mmol/L Normal 136-145 [facility] Comment on above: Performed By: #### BMP #### [facility] [address] [place] [address] Dr. Santhosh Francois Urea nitrogen [Mass/Vol] 23.0 mg/dL Critically high 7.0-18.0 [facility] Comment on above: Performed By: #### BMP #### [facility] [address] [place] [address] Dr. Santhosh Francois Urea nitrogen/Creati nine [Mass ratio] 20.5 mg/mg Normal [facility] Comment on above: Performed By: #### BMP #### [facility] [address] [place] [address] Dr. Santhosh Francois URINE MICROSCOPIC ONLYon BACTERIA NONE SEEN Normal NONE SEEN [facility] Comment on above: Performed By: #### SKYLAR UMICRO #### [facility] [address] [place] [address] Dr. Santhosh Francois Bacteria identified Cx Nom (U) NOT INDICATED Normal [facility] Comment on above: Performed By: #### SKYLAR UMICRO #### [facility] [address] [place] [address] Dr. Santhosh Francois CAST NONE SEEN Normal NONE SEEN [facility] Comment on above: Performed By: #### SKYLAR UMICRO #### [facility] [address] [place] [address] Dr. Santhosh Francois Crystals LM Nom (Urine sed) NONE SEEN Normal NONE SEEN [facility] Comment on above: Performed By: #### SKYLAR UMICRO #### [facility] [address] [place] [address] Dr. Santhosh Francois Epithelial cells LM Ql (Urine sed) NONE SEEN Normal NONE SEEN /RARE [facility] Comment on above: Performed By: #### SKYLAR UMICRO #### [facility] [address] [place] [address] Dr. Santhosh Francois MUCOUS NONE SEEN Normal NONE SEEN [facility] Comment on above: Performed By: #### SKYLAR UMICRO #### [facility] [address] [place] [address] Dr. Santhosh Francois RBC (U) [#/Vol] /uL Abnormal 0-2 [facility] Comment on above: Performed By: #### SKYLAR UMICRO #### [facility] [address] [place] [address] Dr. Santhosh Francois WBC 10-20 Abnormal NONE SEEN [facility] Comment on above: Performed By: #### SKYLAR UMICRO #### [facility] [address] [place] [address] Dr. Santhosh Francois CBC AUTO DIFFon 03-07-2022 BASO # 0.1 103/ul Normal 0.0-0.1 [facility] Comment on above: Performed By: #### CBC #### [facility] [address] [place] [address] Dr. Santhosh Francois Basophils/100 WBC (Bld) 0.8 % Normal 0.2-2.0 [facility] Comment on above: Performed By: #### CBC #### [facility] [address] [place] [address] Dr. Santhosh Francois EO # 0.1 103/ul Normal 0.0-0.7 [facility] Comment on above: Performed By: #### CBC #### [facility] [address] [place] [address] Dr. Santhosh Francois Eosinophils/100 WBC (Bld) 1.9 % Normal 0.9-7.0 [facility] Comment on above: Performed By: #### CBC #### [facility] [address] [place] [address] Dr. Santhosh Francois Erythrocyte distribution width (RBC) [Ratio] 16.4 % Critically high 11.0-15.0 [facility] Comment on above: Performed By: #### CBC #### [facility] [address] [place] [address] Dr. Santhosh Francois Hematocrit (Bld) [Volume fraction] 43.0 % Normal 42.0-54.0 [facility] Comment on above: Performed By: #### CBC #### [facility] [address] [place] [address] Dr. Santhosh Francois Hemoglobin (Bld) [Mass/Vol] 13.4 g/dL Critically low 14.0-18.0 [facility] Comment on above: Performed By: #### CBC #### [facility] [address] [place] [address] Dr. Santhosh Francois IG # 0.02 10e3/ul Normal 0.00-0.03 [facility] Comment on above: Performed By: #### CBC #### [facility] [address] [place] [address] Dr. Santhosh Francois IG % 0.3 % Normal 0.0-0.5 [facility] Comment on above: Performed By: #### CBC #### [facility] [address] [place] [address] Dr. Santhosh Francois LYMPH # 1.8 103/ul Normal 1.2-3.8 [facility] Comment on above: Performed By: #### CBC #### [facility] [address] [place] [address] Dr. Santhosh Francois Lymphocytes/100 WBC (Bld) 29.2 % Normal 20.5-60.0 [facility] Comment on above: Performed By: #### CBC #### [facility] [address] [place] [address] Dr. Santhosh Francois MANUAL DIFF REQ NO Normal [facility] Comment on above: Performed By: #### CBC #### [facility] [address] [place] [address] Dr. Santhosh Francois MCH (RBC) [Entitic mass] 30.5 pg Normal 25.9-34.0 [facility] Comment on above: Performed By: #### CBC #### [facility] [address] [place] [address] Dr. Santhosh Francois MCHC (RBC) [Mass/Vol] 31.2 g/dL Normal 29.9-35.2 [facility] Comment on above: Performed By: #### CBC #### [facility] [address] [place] [address] Dr. Santhosh Francois MCV (RBC) [Entitic vol] 97.9 fL Critically high 80.0-94.0 [facility] Comment on above: Performed By: #### CBC #### [facility] [address] [place] [address] Dr. Santhosh Francois MONO # 0.4 103/ul Normal 0.3-0.8 [facility] Comment on above: Performed By: #### CBC #### [facility] [address] [place] [address] Dr. Santhosh Francois Monocytes/100 WBC (Bld) 6.3 % Normal 1.7-12.0 [facility] Comment on above: Performed By: #### CBC #### [facility] [address] [address] [address] Santhosh Francois NEUT # 3.8 103/ul Normal 1.4-6.5 [facility] Comment on above: Performed By: #### CBC #### [facility] [address] [address] [address] Santhosh Francois Neutrophils/100 WBC (Bld) 61.5 % Normal 43.0-75.0 [facility] Comment on above: Performed By: #### CBC #### [facility] [address] [address] [address] Santhosh Francois Platelet mean volume (Bld) [Entitic vol] 10.5 fL Normal 9.5-13.5 [facility] Comment on above: Performed By: #### CBC #### [facility] [address] [place] [address] Dr. Santhosh Francois PLT 148 103/ul Critically low 150-450 [facility] Comment on above: Performed By: #### CBC #### [facility] [address] [place] [address] Dr. Santhosh Francois RBC 4.39 106/ul Critically low 4.70-6.10 [facility] Comment on above: Performed By: #### CBC #### [facility] [address] [place] [address] Dr. Santhosh Francois WBC 6.2 103/ul Normal 4.0-11.0 [facility] Comment on above: Performed By: #### CBC #### [facility] [address] [address] [address] Santhosh Francois IRONon 03-07-2022 Iron [Mass/Vol] 125.0 ug/dL Normal 65.0-175.0 [facility] Comment on above: Performed By: #### IRON #### [facility] [address] [place] [address] Dr. Santhosh Francois CBC AUTO DIFFon 12-03-2021 BASO # 0.0 103/ul Normal 0.0-0.1 [facility] Comment on above: Performed By: #### CBC #### [facility] [address] [place] [address] Dr. Santhosh Francois Basophils/100 WBC (Bld) 0.7 % Normal 0.2-2.0 [facility] Comment on above: Performed By: #### CBC #### [facility] [address] [place] [address] Dr. Santhosh Francois EO # 0.2 103/ul Normal 0.0-0.7 [facility] Comment on above: Performed By: #### CBC #### [facility] [address] [place] [address] Dr. Santhosh Francois Eosinophils/100 WBC (Bld) 3.1 % Normal 0.9-7.0 [facility] Comment on above: Performed By: #### CBC #### [facility] [address] [place] [address] Dr. Santhosh Francois Hematocrit (Bld) [Volume fraction] 40.4 % Critically low 42.0-54.0 [facility] Comment on above: Performed By: #### CBC #### [facility] [address] [place] [address] Dr. Santhosh Francois Hemoglobin (Bld) [Mass/Vol] 11.5 g/dL Critically low 14.0-18.0 [facility] Comment on above: Performed By: #### CBC #### [facility] [address] [place] [address] Dr. Santhosh Francois IG # 0.01 10e3/ul Normal 0.00-0.03 [facility] Comment on above: Performed By: #### CBC #### [facility] [address] [place] [address] Dr. Santhosh Francois IG % 0.2 % Normal 0.0-0.5 [facility] Comment on above: Performed By: #### CBC #### [facility] [address] [place] [address] Dr. Santhosh Francois LYMPH # 2.0 103/ul Normal 1.2-3.8 [facility] Comment on above: Performed By: #### CBC #### [facility] [address] [place] [address] Dr. Santhosh Francois Lymphocytes/100 WBC (Bld) 33.9 % Normal 20.5-60.0 [facility] Comment on above: Performed By: #### CBC #### [facility] [address] [place] [address] Dr. Santhosh Francois MANUAL DIFF REQ NO Normal [facility] Comment on above: Performed By: #### CBC #### [facility] [address] [place] [address] Dr. Santhosh Francois MCH (RBC) [Entitic mass] 24.1 pg Critically low 25.9-34.0 [facility] Comment on above: Performed By: #### CBC #### [facility] [address] [place] [address] Dr. Santhosh Francois MCHC (RBC) [Mass/Vol] 28.5 g/dL Critically low 29.9-35.2 [facility] Comment on above: Performed By: #### CBC #### [facility] [address] [place] [address] Dr. Santhosh Francois MCV (RBC) [Entitic vol] 84.5 fL Normal 80.0-94.0 [facility] Comment on above: Performed By: #### CBC #### [facility] [address] [place] [address] Dr. Santhosh Francois MONO # 0.4 103/ul Normal 0.3-0.8 [facility] Comment on above: Performed By: #### CBC #### [facility] [address] [place] [address] Dr. Santhosh Francois Monocytes/100 WBC (Bld) 7.7 % Normal 1.7-12.0 [facility] Comment on above: Performed By: #### CBC #### [facility] [address] [place] [address] Dr. Santhosh Francois NEUT # 3.1 103/ul Normal 1.4-6.5 [facility] Comment on above: Performed By: #### CBC #### [facility] [address] [place] [address] Dr. Santhosh Francois Neutrophils/100 WBC (Bld) 54.4 % Normal 43.0-75.0 [facility] Comment on above: Performed By: #### CBC #### [facility] [address] [address] [address] Santhosh Francois Platelet mean volume (Bld) [Entitic vol] 10.0 fL Normal 9.5-13.5 [facility] Comment on above: Performed By: #### CBC #### [facility] [address] [address] [address] Santhosh Francois PLT 191 103/ul Normal 150-450 [facility] Comment on above: Performed By: #### CBC #### [facility] [address] [address] [address] Santhosh Francois RBC 4.78 106/ul Normal 4.70-6.10 [facility] Comment on above: Performed By: #### CBC #### [facility] [address] [place] [address] Dr. Santhosh Francois WBC 5.8 103/ul Normal 4.0-11.0 [facility] Comment on above: Performed By: #### CBC #### [facility] [address] [place] [address] Dr. Santhosh Francois MR prostate wo/w conon 09-17 MR prostate wo/w con [facility] [place] [address] MRI Report Signed Patient: Shabnam Burgess MR#: [id number] : 1955 Acct:[id number] Age/Sex: 65 / M ADM Date: 09/16/21 Loc: Room: Type: [facility] Attending Dr: Puneet Briggs MD Ordering [...] AM COT by: Tomy Garza MD Diplomate, [employer] Report Completed: Sep 17, 2021 10:46:46 AM COT This transmission is proprietary, privileged and confidential. It is intended to be communication only for the use of the addressee; access to this message by anyone else is unaut Transcribed By: 09/17/21 1348 Dictated By: NON STAFF 09/17/21 1046 Signed By: 09/17/21 1349 [facility] Blood Urea Nitrogenon 2020 Urea nitrogen [Mass/Vol] 21 mg/dL Normal 9-23 [facility] Comment on above: Order Comment: STAT FOR MRI Performed By: #### C REAT, BUN #### [address] Creatinineon 09-03-2021 Creatinine [Mass/Vol] 1.01 mg/dL Normal 0.64-1.27 [facility] Comment on above: Order Comment: STAT FOR MRI Performed By: #### C REAT, BUN #### [facility] [address] [place] [address] [place] [facility]inine [facility] Pharmacy 90.06 [facility] Comment on above: Order Comment: STAT FOR MRI Result Comment: PERF ORMED BY: [place] [address] PATHOLOGIST ACTIVITIES VOLUNTEER TONNY ZHOU M.D. Performed By: #### C REAT, BUN #### [facility] [address] [place] [address] Estimated GFR ( Teresita > 60 [facility] Comment on above: Order Comment: STAT FOR MRI Result Comment: GFR estimated reference range: According to KDOQI guidelines, <60 ml/min/1.73m2 is sufficient to diagnose a patient with chronic kidney disease. Performed By: #### C REAT, BUN #### [facility] [address] [place] [address] [place] Estimated GFR (Non- Am > 60 [facility] Comment on above: Order Comment: STAT FOR MRI Performed By: #### C REAT, BUN #### [facility] [id number] [facility] Ironon 04-15-2019 Iron [Mass/Vol] 22 ug/dL Low 59-158 [facility] Comment on above: Performed By: #### CP #### [facility] [address] [place], [place] [id number] Portfolio Mgr: Frank Mercado MD #### B12, FE #### [address] [address] Portfolio Mgr: Rainer Araujo MD Vitamin B12on 04-15-2019 Cobalamin (Vitamin B12) [Mass/Vol] 1062 pg/mL Normal 232-1245 [facility] Comment on above: Performed By: #### CP #### [facility] [address] [place] [address] Dr. [place], [place] [phone] Portfolio Mgr: Frank Mercado MD #### B12, FE #### [address] [address] Portfolio Mgr: Rainer Araujo MD Comp Metabolic Profon 2018 Albumin [Mass/Vol] 4.2 g/dL Normal 3.5-5.2 [facility] Comment on above: Performed By: #### CP #### [facility] [address] [place] [address] Dr. [place], [place] [phone] Portfolio Mgr: Frank Mercado MD #### B12, FE #### [address] [place] [address] Portfolio Mgr: Rainer Araujo MD Albumin/Globuli n [Mass ratio] 1.6 {ratio} Normal 1.0-2.5 [facility] Comment on above: Performed By: #### CP #### [facility] [address] [place] [address] Dr. [place], [place] [phone] Portfolio Mgr: Frank Mercado MD #### B12, FE #### [address] [place], [place] [id number] Portfolio Mgr: Rainer Araujo MD Alkaline Phos 120 U/L Normal 40-129 [facility] Comment on above: Performed By: #### CP #### [facility] [address] [place] [address] Dr. [place], [place] [phone] Portfolio Mgr: Frank Mercado MD #### B12, FE #### [address] [id number] Portfolio Mgr: Rainer Araujo MD Bilirubin Ql (U) 0.72 mg/dL Normal 0.3-1.2 [facility] Comment on above: Performed By: #### CP #### [address] [place] [id number] Portfolio Mgr: Frank Mercado MD #### B12, FE #### [address] [id number] Portfolio Mgr: Rainer Araujo MD Protein [Mass/Vol] 6.8 g/dL Normal 6.4-8.3 [facility] Comment on above: Performed By: #### CP #### [address] [place] [id number] Portfolio Mgr: Frank Mercado MD #### B12, FE #### [address] [id number] Portfolio Mgr: Rainer Araujo MD (cont.) [facility] Comment on above: Result Comment: Average GFR for 60-69 ye ars old: 85 mL/min/1.73sq m Chronic Kidney Disease: <60 mL/min/1.73sq m Kidney failure: <15 mL/min/1.73sq m eGFR calculated using average adult body mass. Additional eGFR calculator available at: http://www.BetterCloud.[place]osport/multiple_crcl_2012.htm Performed By: #### C P #### [address] [place] [address] Portfolio Mgr: Frank Mercado MD #### B12, FE #### [facility] [address] [place] [address] Portfolio Mgr: Rainer Araujo MD ALT [Catalytic activity/Vol] 29 U/L Normal 5-41 [facility] Comment on above: Performed By: #### CP #### [facility] [address] [place] [address] Portfolio Mgr: Frank Mercado MD #### B12, FE #### [address] [address] Portfolio Mgr: Rainer Araujo MD Anion gap [Moles/Vol] 10 mmol/L Normal [facility] Comment on above: Performed By: #### CP #### [facility] [address] [place] [id number] Portfolio Mgr: Frank Mercado MD #### B12, FE #### [address] [address] Portfolio Mgr: Rainer Araujo MD AST [Catalytic activity/Vol] 26 U/L Normal <40 [facility] Comment on above: Performed By: #### CP #### [facility] [address] [id number] Portfolio Mgr: Frank Mercado MD #### B12, FE #### [address] [address] Portfolio Mgr: Rainer Araujo MD BUN/CRE Ratio 24 High 9-20 [facility] Comment on above: Performed By: #### CP #### [facility] [address] [place] [address] Portfolio Mgr: Frank Mercado MD #### B12, FE #### [address] [address] Portfolio Mgr: Rainer Araujo MD Calcium [Mass/Vol] 8.2 mg/dL Low 8.6-10.4 [facility] Comment on above: Performed By: #### CP #### [facility] [address] [place], [place] [phone] Portfolio Mgr: Frank Mercado MD #### B12, FE #### [address] [address] Portfolio Mgr: Rainer Araujo MD Chloride [Moles/Vol] 115 mmol/L High 98-107 [facility] Comment on above: Performed By: #### CP #### [facility] [address] [place] [address] Portfolio Mgr: Frank Mercado MD #### B12, FE #### [address] [address] Portfolio Mgr: Rainer Araujo MD CO2 [Moles/Vol] 17 mmol/L Low 20-31 [facility] Comment on above: Performed By: #### CP #### [facility] [address] [place] [address] Dr. [place], [place] [phone] Portfolio Mgr: Frank Mercado MD #### B12, FE #### [address] [address] Portfolio Mgr: Rainer Araujo MD Creatinine [Mass/Vol] 1.11 mg/dL Normal 0.70-1.20 [facility] Comment on above: Performed By: #### CP #### [facility] [address] [place] [address] [place] [address] Portfolio Mgr: Frank Mercado MD #### B12, FE #### [address] [address] Portfolio Mgr: Rainer Araujo MD GFR, Amer >60 Normal >60 [facility] Comment on above: Performed By: #### CP #### [facility] [address] [place], [place] [phone] Portfolio Mgr: Frank Mercado MD #### B12, FE #### [address] [address] Portfolio Mgr: Rainer Araujo MD GFR,non Amer >60 Normal >60 [facility] Comment on above: Performed By: #### CP #### [facility] [address] [place], [place] [phone] Portfolio Mgr: Frank Mercado MD #### B12, FE #### [address] [address] Portfolio Mgr: Rainer Arajuo MD Glucose [Mass/Vol] 103 mg/dL High 70-99 [facility] Comment on above: Performed By: #### CP #### [address] [place] [address] Portfolio Mgr: Frank Mercado MD #### B12, FE #### [address] [address] Portfolio Mgr: Rainer Araujo MD Potassium [Moles/Vol] 4.1 mmol/L Normal 3.7-5.3 [facility] Comment on above: Performed By: #### CP #### [facility] [address] [place] [address] [place] [address] Portfolio Mgr: Frank Mercado MD #### B12, FE #### [address] [address] Portfolio Mgr: Rainer Araujo MD Sodium [Moles/Vol] 142 mmol/L Normal 135-144 [facility] Comment on above: Performed By: #### CP #### [facility] [address] [place] [address] [place] [address] Portfolio Mgr: Frank Mercado MD #### B12, FE #### [address], [place] [phone] Portfolio Mgr: Rainer Araujo MD Staging: Normal [facility] Comment on above: Result Comment: Stage 1: Some kidney dam age normal GFR Stage 2: Mild kidney damage GFR 60-89 Stage 3: Moderate kidney damage GFR 30-59 Stage 4: Severe kidney damage GFR 15-29 Stage 5: Severe kidney damage GFR <15 ESRD - chronic treatment by dialysis or transplant Performed By: #### C P #### [facility] [address] [place] [address] Dr. [place], [place] [phone] Portfolio Mgr: Frank Mercado MD #### B12, FE #### [address] [phone] Portfolio Mgr: Rainer Araujo MD Urea nitrogen [Mass/Vol] 27 mg/dL High 8-23 [facility] Comment on above: Performed By: #### CP #### [address] [place], [place] 5950183 Portfolio Mgr: Frank Mercado MD #### B12, FE #### [address] [phone] Portfolio Mgr: Rainer Araujo MD Vital Signs Date Time Vital Sign Value Performing Clinician Facility 11-04-2023 15:54-0500 Body height 177.8 cm Park Yoder IT PROJECT MANAGER Work Phone: [facility] 11-04-2023 15:54-0500 Body mass index (BMI) [Ratio] 34.47 kg/m2 Park Yoder IT PROJECT MANAGER Work Phone: [facility] 11-04-2023 15:54-0500 Body temperature 97.11 [degF] Park Yoder IT PROJECT MANAGER Work Phone: [facility] 11-04-2023 15:54-0500 Body weight 108.95 kg Park Yoder IT PROJECT MANAGER Work Phone: [facility] 11-04-2023 15:54-0500 Diastolic blood pressure 78 mm[Hg] Park Terrazasholz IT PROJECT MANAGER Work Phone: [facility] 11-04-2023 15:54-0500 Heart rate 66 /min Park Paresh IT PROJECT MANAGER Work Phone: [facility] 11-04-2023 15:54-0500 Respiratory rate 18 /min Park Paresh IT PROJECT MANAGER Work Phone: [facility] 11-04-2023 15:54-0500 SaO2% (BldA) [Mass fraction] 97 % Park Paresh IT PROJECT MANAGER Work Phone: [facility] 11-04-2023 15:54-0500 Systolic blood pressure 118 mm[Hg] Park Mikez IT PROJECT MANAGER Work Phone: [facility] 10-19-2023 15:01-0500 Blood Pressure Location Puneet BRIGGS [facility] 10-19-2023 15:01-0500 Diastolic blood pressure 60 mm[Hg] Puneet BRIGGS [facility] 10-19-2023 15:01-0500 Heart rate 64 /min Puneet BRIGGS [facility] 10-19-2023 15:01-0500 Respiratory rate 16 /min Puneet BRIGGS [facility] 10-19-2023 15:01-0500 Systolic blood pressure 109 mm[Hg] Puneet BRIGGS [facility] 04-13-2023 15:59-0400 Blood Pressure Location Puneet BRIGGS [facility] 04-13-2023 15:59-0400 Diastolic blood pressure 80 mm[Hg] Puneet BRIGGS [facility] 04-13-2023 15:59-0400 Heart rate 68 /min Puneet BRIGGS [facility] 04-13-2023 15:59-0400 Respiratory rate 16 /min Puneet BRIGGS [facility] 04-13-2023 15:59-0400 Systolic blood pressure 130 mm[Hg] Puneet BRIGGS [facility] 11-04-2022 14:37-0500 Blood Pressure Location Puneet BRIGGS [facility] 11-04-2022 14:37-0500 Diastolic blood pressure 69 mm[Hg] Puneet BRIGGS [facility] 11-04-2022 14:37-0500 Heart rate 68 /min Puneet BRIGGS [facility] 11-04-2022 14:37-0500 Systolic blood pressure 118 mm[Hg] Puneet BRIGGS [facility] 05-19-2022 15:59-0400 Blood Pressure Location Puneet BRIGGS [facility] 05-19-2022 15:59-0400 Diastolic blood pressure 66 mm[Hg] Puneet BRIGGS [facility] 05-19-2022 15:59-0400 Heart rate 59 /min Puneet BRIGGS [facility] 05-19-2022 15:59-0400 Respiratory rate 16 /min Puneet BRIGGS [facility] 05-19-2022 15:59-0400 Systolic blood pressure 117 mm[Hg] [facility]IG[facility] Encounter Date Encounter Type Care Provider Facility Start: 04-27-2024 End: 04-27-2024 ambulatory YISEL MITCHELL [facility] Start: 04-06-2024 End: 04-06-2024 ambulatory LITO GANNON Not Available Start: 03-30-2024 End: 03-30-2024 ambulatory PARK AICHHOLZ Not Available Start: 02-18-2024 End: 02-18-2024 ambulatory PARK AICHHOLZ Not Available Start: 11-04-2023 End: 11-04-2023 ambulatory PARK AICHHOLZ Not Available Start: 11-04-2023 End: 11-04-2023 Office outpatient visit 15 minutes Park Aichnicolettez IT PROJECT MANAGER Work Phone: [facility] Comment on above: 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 Start: 04-13-2023 End: 04-14-2023 ambulatory Puneetyann BRIGGS Facility:[facility] [place] Start: 04-13-2023 End: 04-13-2023 Patient encounter procedure Puneet BRIGGS [facility] [place] Start: 03-18-2023 End: 03-19-2023 ambulatory Puneet BRIGGS Facility:[facility] [place] Start: 03-18-2023 End: 03-18-2023 Patient encounter procedure Puneet BRIGGS [facility] Start: 11-24-2022 ambulatory Puneet R BRIGGS Facili ty:[facility] [place] Start: 11-21-2022 End: 11-22-2022 ambulatory LILIANA YODER Facility:[facility] Start: 11-04-2022 End: 11-05-2022 ambulatory Puneetyann BRIGGS Facility:[facility] [place] Start: 11-04-2022 End: 11-04-2022 Patient encounter procedure Puneet BRIGGS [facility] [place] Start: 09-12-2022 End: 09-12-2022 ambulatory DEANNE OBRIEN . Facility:[facility] Start: 05-19-2022 End: 05-20-2022 ambulatory Puneetyann RBIGGS Facility:[facility] [place] Start: 05-19-2022 End: 05-19-2022 Patient encounter procedure Puneet BRIGGS [facility] [place] Start: 05-16-2022 End: 05-17-[address] DOCTOR HOWE Facility:[facility] Start: 04-30-2022 End: 04-30-[address] CASSIDY DILLON Facility:[facility] Start: 03-07-2022 End: 03-08-2022 ambulatory LILIANA YODER Facility:[facility] Start: 01-01-2022 End: 01-01-2022 Patient encounter procedure Ary ARTEAGA [facility] [place] Start: 12-18-2021 End: 12-18-[address] ARY ARTEAGA . Facility:[facility] Start: 12-14-2021 ambulatory LILIANA YODER Facil ity:[facility] Start: 12-03-2021 End: 12-04-2021 ambulatory MANAGER UTILITY PARK YODER Facility:[facility] Start: 04-14-2019 End: 04-15-2019 Patient encounter procedure PARK YODER [facility] Start: 01-28-2018 End: 01-29-2018 Ambulatory DEFAULT PHYSICIAN Facility:[facility] Procedures Date Procedure Procedure Detail Performing Clinician Start: 04-27-2024 Follow-up visit Follow-up YISEL MITCHELL Start: 11-21-[address] PUNEET BRIGGS . Comment on above: Performed By: #### PSAD #### [facility] [address] [address] [address] Santhosh Francois Start: 11-04-2022 Cystoscopy Puneet BRIGGS Start: 05-16-[address] PUNEET BRIGGS . Comment on above: Performed By: #### PSAD #### [facility] [address] [place] [address] Dr. Santhosh Francois Start: 12-18-2021 Colonoscopy Ary [...] Screening for malign ant neoplasm of colon [facility] Start: 05-29-2023 Influenza vaccination Influenza Vacc ine (#1) [facility] Start: 11-28-1963 Pneumococcal Vaccine : 65+ Years (1 - PCV) Pneumococcal Vaccine: 65+ Years (1 - PCV) [facility] Start: 1955 Screening for malign ant neoplasm of colon [facility] Immunizations Immunization Date Immunization Notes Care Provider Fa [facility] 08-12-2023 Influenza, High-dose Seasonal, Quadrivalent, Preservative Free Park 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 Phone: [facility] 07-29-2021 influenza virus vaccine, unspecified formulation Ary ARTEAGA [facility] [place] 02-13-2021 SARS-CoV-2 (COVID-19 ) mRNA BNT-162i4 jesse BRIGGS [facility] 01-23-2021 SARS-CoV-2 (COVID-19 ) mRNA BNT-162b2 jesse BRIGGS [facility] 09-28-2020 SARS-CoV-2 (COVID-19 ) mRNA BNT-162b2 vax Ary ARTEAGA [facility] [place] 07-02-2020 influenza virus vaccine, unspecified formulation Ary ARTEAGA [facility] [place] Payers Date Payer Category Payer Unknown 1957 Unknown [id number] 1955 Unknown [id number] 2.16.84 0.1.431131.3.579.2.593 1957 Unknown [id number] 2.16.84 0.1.907209.3.579.2.593 1957 Unknown [id number] 2.16.84 0.1.720745.3.579.2.593 1957 Unknown [id number] 2.16.84 0.1.823974.3.579.2.593 1957 Unknown [id number] 2.16.84 0.1.210950.3.579.2.593 1957 Unknown [id number] 2.16.84 0.1.043371.3.579.2.593 1957 Unknown [id number] 2.16.84 0.1.702100.3.579.2.593 1957 Unknown [id number] 2.16.84 0.1.578657.3.579.2.593 1957 Unknown [id number] 2.16.84 0.1.814303.3.579.2.593 1957 Unknown [id number] 2.16.8 40.1.232439.3.579.2.727 1957 Unknown [id number] 2.16.8 40.1.741280.3.579.2.727 1957 Unknown [id number] 2.16.8 40.1.370909.3.579.2.727 1957 Unknown [id number] 2.16.8 40.1.682859.3.579.2.727 1957 Unknown [id number] 2.16.8 40.1.077117.3.579.2.727 1957 Unknown [id number] 2.16.8 40.1.031383.3.579.2.727 1957 Unknown [id number] 2.16.84 0.1.741304.3.579.2.1259 1957 Unknown [id number] 2.16.84 0.1.467483.3.579.2.1259 1957 Unknown [id number] 2.16.84 0.1.873776.3.579.2.1259 1957 Unknown [id number] 2.16.84 0.1.420535.3.579.2.1259 1957 Unknown [id number] 2.16.84 0.1.312723.3.579.2.1259 1957 Unknown [id number] 2.16.84 0.1.189884.3.579.2.1259 1957 Unknown [id number] 2.16.8 40.1.189583.3.579.2.1286 Social History Date Type Detail Facility Start: 12-06-2021 End: 10-26-2023 Tobacco smoking status Never smoked tobacco (finding) [facility] Tobacco smoking status Never [facility] [place] Start: 10-26-2023 End: 11-04-2023 Sex Assigned At Male General Surgery [facility] Start: 10-19-2023 Tobacco smoking status Light t obacco smoker (finding) [facility] Start: 10-26-2023 End: 11-04-2023 History of Social function [facility] Start: 1955 Sex Assigned At Not on file [facility] Start: 11-04-2023 Alcohol intake Ex-drinker (finding) [facility] Start: 11-04-2023 Alcohol Comment caffine: 3 cups lucretia y [facility] Functional Status Date Assessment Result Facility 10-19-2023 Functional Status Yes [facility] 04-13-2023 Functional Status N/A [facility] 11-04-2022 Functional Status N/A [facility] 05-19-2022 Functional Status N/A [facility] Clinical Notes 12-18-2021 to 11-04-2023 Park [...] cont current meds documented in this encounter [facility] 10-19-2023 Hospital Discharge instructions Patient [...] urethra. Follow these instructions at home: Take stbv-gmk-uumzqhp and prescription medicines only as told by [...] provider. Document Revised: 04/02/2022 Document Reviewed: 04/02/2022 Ning by [employer] Patient Education 2022 [employer]. Follow Up Care 04/13/2023 16:26:55 With:ANAHI MCDONALD, Puneet Ross, DELANEY Address: [facility] [address], [place] [address]- When:Within 1 Year(s) Comments:w/PSA [facility] [place] 04-13-2023 Hospital Discharge instructions Patient Education [...] under a microscope. This is called the [place] score and the total score can range [...] stress of having cancer. General instructions Take pwvu-rms-xxnxrpv and prescription medicines only as told by your health care provider. If you have to go to the hospital, notify your cancer specialist (oncologist). Keep all follow-up visits. This is important. Where to find more information [employer]: www.cancer.org [place] Society of Clinical Oncology: www.cancer.net National Cancer [place]: www.cancer.gov Contact a health care provider if: [...] provider. Document Revised: 12/11/2021 Document Reviewed: 12/11/2021 Ning by [employer] Patient Education 2022 [employer]. Follow Up Care 03/16/2023 14:05:40 With:ANAHI MCDONALD, Puneet Ross, URL Address: [facility] [address] , [place] [phone] When: Unknown Comments:6 mos w/ PSA and PVR [facility] 11-03-2022 Hospital Discharge instructions Patient Education [...] urethra. Follow these instructions at home: Take fagi-yft-isoexqd and prescription medicines only as told by [...] 09/14/2006 Document Revised: 08/09/2019 Document Reviewed: 10/19/2017 Ning by [employer] Patient Education GrupHediye Follow Up Care 10/13/2022 13:53:44 With:ANAHI MCDONALD, Puneet Ross URL Address: [facility] [address] , [place] [address]- When: Unknown [facility] 05-19-2022 Hospital Discharge instructions Patient Education 05/19/2022 16:24:13 Prostatitis, Yabh-af-Mwlg Prostatitis Prostatitis is swelling of the prostate gland. The prostate helps to make semen. It is below a man's bladder, in front of the rectum. There are different types of prostatitis. Follow these instructions at home: Take nxhl-xmu-oblzkkm and prescription medicines only as told by [...] 03/15/2013 Document Revised: 08/27/2018 Document Reviewed: 06/04/2017 Ning by [employer] Patient Education GrupHediye 05/19/2022 16:24:11 Calorie Counting for Weight Loss [...] 09/14/2006 Document Revised: 06/03/2019 Document Reviewed: 08/14/2017 Ning by [employer] Patient Education 2020 [employer]. Follow Up Care 11/22/2021 12:25:13 With:ANAHI MCDONALD, Puneet Ross, URL Address: [address] [place] [address] [place] [address]- Business (1) When:Within 6 Month(s) Comments:w/FESTUS [facility] 12-18-2021 Note OPERATIVE NOTE PREOPERATIVE DIAGNOSIS: [...] to the poor prep. 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 12/20/2021 11:57:00 [facility] Evaluation + Plan note Future Appointments Appointment Date:05/19/2022 03:15:00 PM Scheduled Provider:Puneet BRIGGS MD Location:[facility] Appointment Type:URO Office Visit [facility] [place] Evaluation + Plan note Future Appointments Appointment Date:11/24/2022 03:30:00 PM Scheduled Provider:Puneet BRIGGS MD Location:[facility] Appointment Type:URO Office Visit Diagnostic Tests PendingPSA Total 05/19/22 [facility] Evaluation + Plan note Future Appointments Appointment Date:03/18/2023 08:30:00 AM Scheduled Provider:Puneet BRIGGS MD Location:[facility] Appointment Type:URO Office Visit Diagnostic Tests PendingUroVysion Fish and Urine Cyto ([facility]) 11/04/22 [facility] Evaluation + Plan note Future Appointments Appointment Date:03/23/2023 03:00:00 PM Scheduled Provider:Puneet BRIGGS MD Location:[facility] Appointment Type:URO Office Visit [facility] Evaluation + Plan note Future Appointments Appointment Date:10/19/2023 02:45:00 PM Scheduled Provider:Puneet BRIGGS MD Location:[facility] Appointment Type:URO Office Visit Diagnostic Tests PendingPSA Total 04/13/23 [facility] Evaluation + Plan note Future Appointments Appointment Date:10/24/2024 03:00:00 PM Scheduled Provider:Puneet BRIGGS MD Location:[facility] Appointment Type:URO Office Visit Diagnostic Tests PendingPSA Total 10/19/23 [facility] Evaluation note Diagnosis Iron deficiency anemia following bariatric surgery- Primary BMI 37.0-37.9, adult Nonischemic cardiomyopathy (CMS/HCC) Other primary cardiomyopathies Primary hypertension (CMS/HCC) Unspecified essential hypertension Chronic systolic heart failure (CMS/HCC) Chronic systolic heart failure H/O bariatric surgery Mixed hyperlipidemia (CMS/HCC) Mixed hyperlipidemia documented in this encounter [facility] Narrative No data available for this section General Surgery [facility] Discharge instructions No data available for this section General Surgery [facility] Progress note No data available for this section [facility] Summary Purpose Family History No Family [...] section and content) DATE CREATED AUTHOR 03/18/2018 [facility] DATE CREATED AUTHOR AUTHOR'S ORGANIZ ATION 04/15/2019 [facility] DATE CREATED AUTHOR AUTHOR'S ORGANIZ ATION 12/16/2021 [facility] DATE CREATED AUTHOR AUTHOR'S ORGANIZ ATION 11/28/2022 [facility] DATE CREATED AUTHOR AUTHOR'S ORGANIZ ATION 04/14/2023 P[place] [place] [facility] DATE CREATED AUTHOR AUTHOR'S ORGANIZ ATION 04/12/2024 [facility] EPIC DATE CREATED AUTHOR AUTHOR'S ORGANIZ ATION 04/29/2024 [facility] Care Team (unrecognized sect ion and content) Director Radio News Relationship Specialty Start Date End Date Kenny Hartley MD [address] [place] [id number] PCP - General Family Medicine 10/26/23 Director [employer] Relationship Specialty Start Date End Date Kenny Hartley MD [address] [place] [id number] PCP - General Family Medicine 10/26/23 FOR [...] BE BASED ON THE PRIMARY CLINICAL RECORDS. [employer] provides no warranty or guarantee of the accuracy or completeness of information in this document.
[2024-06-07 08:40] LABS: Chol HDL Ratio 1.4; Cholesterol 68 mg/dL (<=200); HDL Cholesterol 47 mg/dL (40-60); LDL Cholesterol Calculated 13.8 mg/dL; Triglycerides 36 mg/dL (<=150); VLDL CHOLESTEROL 7.2 mg/dL
== END 2024-06-07 07:31 | disposition home or self-care (01) ==
LOC: LAB 07:31
PROVIDERS: PCP Nurse Practitioner
DX: E78.2 Mixed hyperlipidemia (principal)
CPT/HCPCS: 36415; 80061

== ENCOUNTER 2024-08-17 16:06 | Outpatient (OUT) | payer BC, SELFPAY ==
--- OUTSIDE RECORDS SUMMARY | 2024-08-17 16:13 | XMS_ITS | CCD ---
Author Organization [facility] Care Team Providers Care Tanker Service Attendant Name Role Phone PHYSICIAN, DEFAULT Unavailable Unavailable PHYSICIAN, DEFAULT Unavailable Unavailable AICHQUIANA PARK J. Referring Unavailable AICHHOLZ, PARK J. Primary Care Unavailable AICHQUIANA, PARK J Primary Care Physician ANAHI Jackson, DR NGUYỄN Consulting Unavailable BRIGGS ., DR NGUYỄN Admitting Unavailable BRIGGS ., DR NGUYỄN Attending Unavailable AICHHOLZ, CANNON CREWMEMBER PARK Primary Care Unavailable MISC, DR AYERS Consulting Unavailable MISC, DR AYERS Admitting Unavailable MISC, DR AYERS Attending Unavailable AICHHOLZ, CANNON CREWMEMBER PARK Primary Care Unavailable AICHHOLZ, CANNON CREWMEMBER PARK Consulting Unavailable AICHHOLZ, CANNON CREWMEMBER PARK Primary Care Unavailable BRIGGS ., DR NGUYỄN Admitting Unavailable BRIGGS ., DR NGUYỄN Attending Unavailable ZIEBER, DR CASSIDY Ross Consulting Unavailable ELI DALAL Attending Unavailable ELI DALAL Admitting Unavailable AICHHOLZ, CANNON CREWMEMBER PARK Primary Care Unavailable JENNIFER DRAKE Consulting Unavailable DEANNE OTOOLE Consulting UnavailISACC Sidhu Admitting Unavailable ISACC BEJARANO Attending Unavailable AICHHOLZ, CANNON CREWMEMBER PARK Primary Care Unavailable ISACC BEJARANO Consulting Unavailable AICHHOLZ, CANNON CREWMEMBER PARK Primary Care Unavailable NILL ., DR MCALLISTER Admitting Unavailable NILL ., DR MCALLISTER Attending Unavailable NILL ., DR MCALLISTER Consulting Unavailable AICHHOLZ, CANNON CREWMEMBER PARK Primary Care Unavailable NILL ., DR MCALLISTER Admitting Unavailable NILL ., DR MCALLISTER Attending Unavailable GRACE LEO Consulting Unavailable JUAN ORO Consulting Unavailable AICHHOLZ, CANNON CREWMEMBER PARK Consulting Unavailable AICHHOLZ, CANNON CREWMEMBER PARK Primary Care Unavailable AICHHOLZ, CANNON CREWMEMBER PARK Admitting Unavailable AICHHOLZ, CANNON CREWMEMBER PARK Attending Unavailable AICHHOLZ, CANNON CREWMEMBER PARK Consulting Unavailable AICHHOLZ, CANNON CREWMEMBER PARK Admitting Unavailable AICHHOLZ, CANNON CREWMEMBER PARK Attending Unavailable AICHHOLZ, CANNON CREWMEMBER PARK Primary Care Unavailable ANAHI, Puneet Ross Attending Unavailable ANAHI, Puneet Ross Attending Unavailable BRIGGS, Puneet R Attending Unavailable ANAHI, Puneet R Attending Unavailable BRIGGS, Puneet R Attending Unavailable BRIGGS, Puneet R Attending Unavailable Kneny Hartley MD Primary Care Provider YISEL MITCHELL Attending Unavailable AICHHOLZ, PARK J Referring Unavailable AICHHOLZ, PARK J Primary Care Unavailable AICHHOLZ, PARK Attending Unavailable AICHHOLZ, PARK Attending Unavailable AICHHOLZ, PARK Attending Unavailable LITO GANNON Attending Unavailable AICHHOLZ, PARK Referring Unavailable AICHHOLZ, PARK Attending Unavailable Medications Current Medications Medication [...] procedure, # 2 tab(s), Refills(s) 0, Pharmacy: [id number], 176, cm, 05/19/22 [...] 05-19-2022 10-24-2019 Chronic Other aftercare (1 source) residential (current) use of aspirin; 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 This is called the [place] score and the total score can range from 6?10, indicating how likely it is that the cancer will spread (metastasize) to other parts of the body. The higher the score, the greater the likelihood that the cancer will spread. ? [place] 6 or lower: This indicates that the [...] external be (more content not included)... Normal [facility] Reminderson 04-13-2023 Reminders - From: Shala Soares To: EU - Recalls Briggs; Sent: 04/13/2023 16:27:00 EDT Show up: 09/13/2023 15:26:00 EST Subject: PSA Reminder Message Please Remember to:_get PSA (at [facility]) prior to next appt. Normal [facility] Urology Office/Clinic Noteon 04-13-2023 Urology Office/Clinic [...] Ross, URL [facility] [address], [place] [id number] [phone] Additional Instructions: 6 mos w/ PSA and PVR Patient Education Prostate Cancer I, Shala Soares, personally scribed for Dr. Briggs on 04/13/2023 16:25:11. . Documentation recorded by the scribeShala, accurately reflects the services(s) I performed and [...] of prostat (more content not included)... Normal [facility] Comment on above: Result Comment: Electronically Signed By : Puneet BRIGGS MD\.br\Date and Time Signed: 04/13/23 16:26 EDT\.br\Electronically Co-Signed By: Shala Soares\.br\Date and Time Co-Signed: 04/13/23 16:25 EDT Lab Reportson 11-30-2022 Lab Reports [id number]#[id number]:127 Normal [facility] UroVysion Fish and Urine Cyt o ([facility])on 11-13-2022 UVFISH & UC Diagnosis Info Invalid Interpretation Code [facility] Comment on above: Result Comment: A:Urine,Urine:Voided [...] 170 Hematuria: Gross Description Site ID:A color [place] fixative Alcohol Received 80 mls of clear orange fluid with the patient's name and, Urine on the vial. Electronically signed by : on: 11/13/2022 08:34:30 Performed By: #### 1 [id number] ####[facility] [address] [place] [address] Consent for Procedure/Surger yon 11-05-2022 Consent for Procedure/Surge ry [id number]#1.00CD:127 Normal [facility] UroVysion Fish and Urine Cyt o ([facility])on 11-04-2022 [facility] Method of Extraction Bladder Urine Normal [facility] Comment on above: Performed By: #### [id number] ####[facility] [address] [place] [address] [facility] Number of Jars 1 Invalid Interpretation Code [facility] Comment on above: Performed By: #### [id number] ####[facility] [address] [place] [address] [facility] Specimen Urine Normal [facility] Comment on above: Performed By: #### [id number] ####[facility] [address] [place] [address] [facility] Type of Service Global Normal [facility] Comment on above: Performed By: #### [id number] ####[facility] [address] [place] [address] Urology Office/Clinic Noteon 11-04-2022 Urology Office/Clinic Note [...] blood and clots on 09/12/22. Went to [facility] ER, they did urine cx. Was [...] [facility] [address], [place] [address]- Additional Instructions: f/u 4 mos Patient Education [...] of lower (more content not included)... Normal [facility] Comment on above: Result Comment: Electronically Signed By : Puneet BRIGGS MD\.br\Date and Time Signed: 11/04/22 15:08 EST\.br\Electronically Co-Signed By: Soha Li\.br\Date and Time Co-Signed: 11/04/22 15:05 EST Patient Educationon 11-03-19 23 Patient Education Urology Benign Prostatic Hyperplasia [...] Follow these instructions at home: ? Take xmwq-lec-pkufggl and prescription medicines only as told by [...] You d (more content not included)... Normal [facility] Pre-Certification Formon Pre-Certificati on Form [id number]#[id number]:127 Normal [facility] ER URINE PROFILEon 2 Bilirubin Ql (U) Negative Normal NEGATIVE [facility] Comment on above: Performed By: #### NICOL ERUR #### [facility] [address] [place] [address] Dr. Santhosh Francois Clarity (U) CLEAR Normal CLEAR [facility] Comment on above: Performed By: #### NICOL ERUR #### [facility] [address] [place] [address] Dr. Santhosh Francois Color (U) LT. YELLOW Normal YELLOW [facility] Comment on above: Performed By: #### NICOL ERUR #### [facility] [address] [place] [address] Dr. Santhosh PALACIOS A micrscopic examina tion will be performed if indicated. Normal [facility] Comment on above: Performed By: #### NICOL ERUR #### [facility] [address] [place] [address] Dr. Santhosh Francois Glucose Ql (U) Negative Normal NEGATIVE [facility] Comment on above: Performed By: #### NICOL ERUR #### [facility] [address] [place] [address] Dr. Santhosh Francois Hemoglobin Ql (U) LARGE Abnormal NEGATIVE [facility] Comment on above: Performed By: #### CORRINA CAMARENAR #### [facility] [address] [place] [address] Dr. Santhosh Francois Ketones Ql (U) Negative Normal NEGATIVE [facility] Comment on above: Performed By: #### NICOL ERUR #### [facility] [address] [place] [address] Dr. Santhosh Francois LEUKOCYTES Negative Normal NEGATIVE [facility] Comment on above: Performed By: #### NICOL, ERUR #### [facility] [address] [address] [address] Santhosh Francois Nitrite Ql (U) Negative Normal NEGATIVE [facility] Comment on above: Performed By: #### NICOL, ERUR #### [facility] [address] [place] [address] Dr. Santhosh Francois pH (U) 5.0 [pH] Normal 5-9 [facility] Comment on above: Performed By: #### NICOL, ERUR #### [facility] [address] [place] [address] Dr. Santhosh Francois SPEC GRAVITY 1.010 Normal 1.005-<=1.02 5 [facility] Comment on above: Performed By: #### NICOL, ERUR #### [facility] [address] [place] [address] Dr. Santhosh Francois UA PROTEIN TRACE Normal NEGATIVE/ TRACE [facility] Comment on above: Performed By: #### NICOL ERUR #### [facility] [address] [place] [address] Dr. Santhosh Francois UR MICRO IND INDICATED Normal [facility] Comment on above: Performed By: #### NICOL, ERUR #### [facility] [address] [place] [address] Dr. Santhosh Francois Urobilinogen Qn (U) 0.2 {Malini'U}/dL Normal 0.2 - 1.0 [facility] Comment on above: Performed By: #### NICOL, ERUR #### [facility] [address] [place] [address] Dr. Santhosh Francois URINE MICROSCOPIC ONLYon BACTERIA NONE SEEN Normal NONE SEEN [facility] Comment on above: Performed By: #### CBC #### [facility] [address] [place] [address] Dr. Santhosh Francois Bacteria identified Cx Nom (U) NOT INDICATED Normal [facility] Comment on above: Performed By: #### CBC #### [facility] [address] [place] [address] Dr. Santhosh Francois CAST NONE SEEN Normal NONE SEEN [facility] Comment on above: Performed By: #### CBC #### [facility] [address] [place] [address] Dr. Santhosh Francois Crystals LM Nom (Urine sed) NONE SEEN Normal NONE SEEN [facility] Comment on above: Performed By: #### CBC #### [facility] [address] [place] [address] Dr. Santhosh Francois Epithelial cells LM Ql (Urine sed) RARE Normal NONE SEEN /RARE [facility] Comment on above: Performed By: #### CBC #### [facility] [address] [place] [address] Dr. Santhosh Francois MUCOUS NONE SEEN Normal NONE SEEN [facility] Comment on above: Performed By: #### CBC #### [facility] [address] [place] [address] Dr. Santhosh Francois RBC 10-20 Abnormal 0-2 [facility] Comment on above: Performed By: #### CBC #### [facility] [address] [place] [address] Dr. Santhosh Francois WBC NONE SEEN Normal NONE SEEN [facility] Comment on above: Performed By: #### CBC #### [facility] [address] [place] [address] Dr. Santhosh Francois Lab Reportson 05-20-2022 Lab Reports [id number]#[id number]:127 Normal [facility] Ambulatory Visit Summaryon 0 05-19-2022 Ambulatory Visit Summary SHABNAM BURGESS :1955 Visit Date:05/19/2022 Ambulatory Visit Instructions Your Diagnosis Prostate cancer Chronic prostatitis BPH with urinary obstruction Kidney stones BMI 36.0-36.9,adult Other obstructive and reflux uropathy Tests Performed Urnls Dip Stick Auto w/o Microscopy POC 02389 Your Care Team Attending Physician - ANAHI [...] Follow these instructions at home: ? Take taec-lck-rzagssc and prescription medicines only as told by [...] 03/15/2013 Document Revised: 08/27/2018 Document Reviewed: 06/04/2017 [employer] Patient Education ? 2020 [employer] Nutrition Calorie Counting for Weight Loss Calories [...] not leave (more content not included)... Normal [facility] Urology Office/Clinic Noteon 05-19-2022 Urology Office/Clinic [...] MCDONALD, Puneet Ross, DELANEY In 6 months [facility] [address] Business (1) Additional Instructions: w/PSA Patient Education Prostatitis, Hvin-yn-Creb Calorie Counting for Weight Loss Carey Willett [...] Wine, Daily, (more content not included)... Normal [facility] Comment on above: Result Comment: Electronically Signed By : Puneet BRIGGS MD\.br\Date and Time Signed: 05/19/22 16:36 EDT\.br\Electronically Co-Signed By: Carey Gonzalez\.br\Date and Time Co-Signed: 05/19/22 16:34 EDT LIPID PROFILEon 05-16-2022 CHOL-HDL RATIO NORM SEE BELOW Normal [facility] Comment on above: Result Comment: 3.3 - 4.4 LOW RISK 4.4 - 7.1 AVERAGE RISK 7.1 - 11.0 MODERATE RISK >11.0 HIGH RISK Performed By: #### C BC #### [facility] [address] [address] [address] Santhosh Francois Cholesterol [Mass/Vol] 58 mg/dL Normal <=200 [facility] Comment on above: Performed By: #### CBC #### [facility] [address] [address] [address] Santhosh Francois Cholesterol in HDL [Mass/Vol] 38 mg/dL Critically low 40-60 [facility] Comment on above: Performed By: #### CBC #### [facility] [address] [address] [address] Santhosh Francois Cholesterol in LDL [Mass/Vol] 14.0 mg/dL Normal [facility] Comment on above: Performed By: #### CBC #### [facility] [address] [address] [address] Santhosh Francois Cholesterol.tot al/Cholesterol in HDL [Mass ratio] 1.5 {ratio} Normal [facility] Comment on above: Performed By: #### CBC #### [facility] [address] [address] [address] Santhosh Francois HDL NORMAL > or = 60 mg/dl - LO W CARDIOVASCULAR RISK <40 mg/dl - HIGH CARDIOVASCULAR RISK Normal [facility] Comment on above: Performed By: #### CBC #### [facility] [address] [address] [address] Santhosh Francois LDL CALC NORMAL SEE BELOW Normal [facility] Comment on above: Result Comment: <100 mg/dl OPTIMAL 100 - 129 mg/dl NEAR OR ABOVE OPTIMAL 130 - 159 mg/dl BORDERLINE HIGH 160 - 189 mg/dl HIGH >190 mg/dl VERY HIGH Performed By: #### C BC #### [facility] [address] [place] [address] Dr. Santhosh Francois Triglyceride [Mass/Vol] 30 mg/dL Normal <=150 [facility] Comment on above: Performed By: #### CBC #### [facility] [address] [address] [address] Santhosh Francois VLDL CALC 6.0 mg/dL Normal [facility] Comment on above: Performed By: #### CBC #### [facility] [address] [address] [address] Santhosh Francois PROF 14(COMP METB)on 022 Albumin [Mass/Vol] 3.6 g/dL Normal 3.4-5.0 [facility] Comment on above: Performed By: #### CBC #### [facility] [address] [place] [address] Dr. Santhosh Francois Albumin/Globuli n [Mass ratio] 1.1 {ratio} Normal [facility] Comment on above: Performed By: #### CBC #### [facility] [address] [address] [address] Santhosh Francois ALP [Catalytic activity/Vol] 145 U/L Critically high 46-116 [facility] Comment on above: Performed By: #### CBC #### [facility] [address] [place] [address] Dr. Santhosh Francois ALT [Catalytic activity/Vol] 102 U/L Critically high 16-63 [facility] Comment on above: Performed By: #### CBC #### [facility] [address] [address] [address] Santhosh Francois Anion gap [Moles/Vol] 12.7 mmol/L Normal [facility] Comment on above: Performed By: #### CBC #### [facility] [address] [address] [address] Santhosh Francois AST [Catalytic activity/Vol] 68 U/L Critically high 15-37 [facility] Comment on above: Performed By: #### CBC #### [facility] [address] [address] [address] Santhosh Francois Bilirubin [Mass/Vol] 1.0 mg/dL Normal 0.2-1.0 [facility] Comment on above: Performed By: #### CBC #### [facility] [address] [place] [address] Dr. Santhosh Francois Calcium [Mass/Vol] 8.0 mg/dL Critically low 8.5-10.1 [facility] Comment on above: Performed By: #### CBC #### [facility] [address] [place] [address] Dr. Santhosh Francois Chloride [Moles/Vol] 111 mmol/L Critically high 98-107 [facility] Comment on above: Performed By: #### CBC #### [facility] [address] [place] [address] Dr. Santhosh Francois CO2 [Moles/Vol] 20.6 mmol/L Critically low 21.0-32.0 [facility] Comment on above: Performed By: #### CBC #### [facility] [address] [address] [address] Santhosh Francois Creatinine [Mass/Vol] 0.96 mg/dL Normal 0.70-1.30 [facility] Comment on above: Performed By: #### CBC #### [facility] [address] [place] [address] Dr. Santhosh Francois EGFR-AF MONTENEGRIN >60 Normal >=60 [facility] Comment on above: Performed By: #### CBC #### [facility] [address] [address] [address] Santhosh Francois EGFR-NON AF MONTENEGRIN >60 Normal >=60 [facility] Comment on above: Performed By: #### CBC #### [facility] [address] [place] [address] Dr. Santhosh Francois Globulin (S) [Mass/Vol] 3.2 g/dL Normal [facility] Comment on above: Performed By: #### CBC #### [facility] [address] [address] [address] Santhosh Francois Glucose [Mass/Vol] 88 mg/dL Normal 74-106 [facility] Comment on above: Performed By: #### CBC #### [facility] [address] [place] [address] Dr. Santhosh Francois Potassium [Moles/Vol] 4.3 mmol/L Normal 3.5-5.1 [facility] Comment on above: Performed By: #### CBC #### [facility] [address] [place] [address] Dr. Santhosh Francois Protein [Mass/Vol] 6.8 g/dL Normal 6.4-8.2 [facility] Comment on above: Performed By: #### CBC #### [facility] [address] [place] [address] Dr. Santhosh Francois Sodium [Moles/Vol] 140 mmol/L Normal 136-145 [facility] Comment on above: Performed By: #### CBC #### [facility] [address] [place] [address] Dr. Santhosh Francois Urea nitrogen [Mass/Vol] 26.0 mg/dL Critically high 7.0-18.0 [facility] Comment on above: Performed By: #### CBC #### [facility] [address] [address] [address] Santhosh Francois Urea nitrogen/Creati nine [Mass ratio] 27.1 mg/mg Normal [facility] Comment on above: Performed By: #### CBC #### [facility] [address] [place] [address] Dr. Santhosh Francois ED Note-Physicianon 05-07-20 ED Note-Physician [id number]:127 Normal [facility] RAD - CT Reporton 05-06-2022 RAD - CT Report [id number]#[id number]:127 Normal [facility] CBC AUTO DIFFon 04-30-2022 BASO # 0.0 103/ul Normal 0.0-0.1 [facility] Comment on above: Performed By: #### CBC #### [facility] [address] [address] [address] Santhosh Francois Basophils/100 WBC (Bld) 0.5 % Normal 0.2-2.0 [facility] Comment on above: Performed By: #### CBC #### [facility] [address] [place] [address] Dr. Santhosh Francois EO # 0.2 103/ul Normal 0.0-0.7 [facility] Comment on above: Performed By: #### CBC #### [facility] [address] [place] [address] Dr. Santhosh Francois Eosinophils/100 WBC (Bld) 2.9 % Normal 0.9-7.0 [facility] Comment on above: Performed By: #### CBC #### [facility] [address] [place] [address] Dr. Santhosh Francois Erythrocyte distribution width (RBC) [Ratio] 14.9 % Normal 11.0-15.0 [facility] Comment on above: Performed By: #### CBC #### [facility] [address] [place] [address] Dr. Santhosh Francois Hematocrit (Bld) [Volume fraction] 39.1 % Critically low 42.0-54.0 [facility] Comment on above: Performed By: #### CBC #### [facility] [address] [place] [address] Dr. Santhosh Francois Hemoglobin (Bld) [Mass/Vol] 12.2 g/dL Critically low 14.0-18.0 [facility] Comment on above: Performed By: #### CBC #### [facility] [address] [place] [address] Dr. Santhosh Francois IG # 0.01 10e3/ul Normal 0.00-0.03 [facility] Comment on above: Performed By: #### CBC #### [facility] [address] [place] [address] Dr. Santhosh Francois IG % 0.2 % Normal 0.0-0.5 [facility] Comment on above: Performed By: #### CBC #### [facility] [address] [place] [address] Dr. Santhosh Francois LYMPH # 2.0 103/ul Normal 1.2-3.8 [facility] Comment on above: Performed By: #### CBC #### [facility] [address] [place] [address] Dr. Santhosh Francois Lymphocytes/100 WBC (Bld) 32.6 % Normal 20.5-60.0 [facility] Comment on above: Performed By: #### CBC #### [facility] [address] [place] [address] Dr. Santhosh Francois MANUAL DIFF REQ NO Normal [facility] Comment on above: Performed By: #### CBC #### [facility] [address] [place] [address] Dr. Santhosh Francois MCH (RBC) [Entitic mass] 29.9 pg Normal 25.9-34.0 [facility] Comment on above: Performed By: #### CBC #### [facility] [address] [place] [address] Dr. Santhosh Francois MCHC (RBC) [Mass/Vol] 31.2 g/dL Normal 29.9-35.2 [facility] Comment on above: Performed By: #### CBC #### [facility] [address] [place] [address] Dr. Santhosh Francois MCV (RBC) [Entitic vol] 95.8 fL Critically high 80.0-94.0 [facility] Comment on above: Performed By: #### CBC #### [facility] [address] [place] [address] Dr. Santhosh Francois MONO # 0.5 103/ul Normal 0.3-0.8 [facility] Comment on above: Performed By: #### CBC #### [facility] [address] [place] [address] Dr. Santhosh Francois Monocytes/100 WBC (Bld) 7.9 % Normal 1.7-12.0 [facility] Comment on above: Performed By: #### CBC #### [facility] [address] [place] [address] Dr. Santhosh Francois NEUT # 3.5 103/ul Normal 1.4-6.5 [facility] Comment on above: Performed By: #### CBC #### [facility] [address] [place] [address] Dr. Santhosh Frnacois Neutrophils/100 WBC (Bld) 55.9 % Normal 43.0-75.0 [facility] Comment on above: Performed By: #### CBC #### [facility] [address] [place] [address] Dr. Santhosh Francois Platelet mean volume (Bld) [Entitic vol] 10.6 fL Normal 9.5-13.5 [facility] Comment on above: Performed By: #### CBC #### [facility] [facility] [address] [place] [address] Dr. Santhosh Francois PLT 125 103/ul Critically low 150-450 [facility] Comment on above: Performed By: #### CBC #### [facility] [address] [place] [address] Dr. Santhosh Francois RBC 4.08 106/ul Critically low 4.70-6.10 [facility] Comment on above: Performed By: #### CBC #### [facility] [address] [place] [address] Dr. Santhosh Francois WBC 6.2 103/ul Normal 4.0-11.0 [facility] Comment on above: Performed By: #### CBC #### [facility] [address] [place] [address] ABD/PELVIS WO CONon [...] CASSIDY DILLON Date: 2022-04-30 18:05 Normal [facility] CULTURE URINEon 04-30-2022 CULTURE URINE Culture Observations : NO GROWTH. Normal [facility] Comment on above: Performed By: #### URCX #### [facility] [address] [address] [address] Santhosh Francois ER URINE PROFILEon 2 Bilirubin Ql (U) Unable to perform testing due to color interference. Abnormal NEGATIVE [facility] Comment on above: Performed By: #### NICOL CHENG #### [facility] [address] [address] [address] Santhosh Francois Clarity (U) TURBID Abnormal CLEAR [facility] Comment on above: Performed By: #### ERUR, UMICRO #### [facility] [address] [place] [address] Dr. Santhosh Francois Color (U) RED Abnormal YELLOW [facility] Comment on above: Performed By: #### ERUR, UMICRO #### [facility] [address] [place] [address] Dr. Santhosh HOUSERAHD A micrscopic examina tion will be performed if indicated. Normal [facility] Comment on above: Performed By: #### ERUR, UMICRO #### [facility] [address] [place] [address] Dr. Santhosh Francois Glucose Ql (U) Unable to perform te sting due to color interference. Abnormal NEGATIVE [facility] Comment on above: Performed By: #### ERUR, UMICRO #### [facility] [address] [place] [address] Dr. Santhosh Francois Hemoglobin Ql (U) Unable to perform testing due to color interference. Abnormal NEGATIVE [facility] Comment on above: Performed By: #### SKYLAR UMICRO #### [facility] [address] [place] [address] Dr. Santhosh Francois Ketones Ql (U) Unable to perform te sting due to color interference. Abnormal NEGATIVE [facility] Comment on above: Performed By: #### ERUR, UMICRO #### [facility] [address] [place] [address] Dr. Santhosh Francois LEUKOCYTES Unable to perform te sting due to color interference. Abnormal NEGATIVE [facility] Comment on above: Performed By: #### ERUR, UMICRO #### [facility] [address] [place] [address] Dr. Santhosh Francois Nitrite Ql (U) Unable to perform te sting due to color interference. Abnormal NEGATIVE [facility] Comment on above: Performed By: #### ERUR, UMICRO #### [facility] [address] [place] [address] Dr. Santhosh Francois pH (U) 6.0 [pH] Normal 5-9 [facility] Comment on above: Performed By: #### SKYLAR UMICRO #### [facility] [address] [place] [address] Dr. Santhosh Francois SPEC GRAVITY 1.025 Normal 1.005-<=1.02 5 [facility] Comment on above: Performed By: #### ERUR, UMICRO #### [facility] [address] [place] [address] Dr. Santhosh Francois UA PROTEIN Unable to perform te sting due to color interference. Normal NEGATIVE/ TRACE [facility] Comment on above: Performed By: #### SKYLAR UMICRO #### [facility] [address] [place] [address] Dr. Santhosh Francois UR MICRO IND INDICATED Normal [facility] Comment on above: Performed By: #### SKYLAR UMICRO #### [facility] [address] [place] [address] Dr. Santhosh Francois UROBILINOGEN Unable to perform te sting due to color interference. Normal 0.2 - 1.0 [facility] Comment on above: Performed By: #### SKYLAR UMICRO #### [facility] [address] [place] [address] Dr. Santhohs Francois PROF CHEM 8 (BAS METB)on Anion gap [Moles/Vol] 12.6 mmol/L Normal [facility] Comment on above: Performed By: #### BMP #### [facility] [address] [place] [address] Dr. Santhosh Francois Calcium [Mass/Vol] 7.7 mg/dL Critically low 8.5-10.1 [facility] Comment on above: Performed By: #### BMP #### [facility] [address] [place] [address] Dr. Santhosh Francois Chloride [Moles/Vol] 114 mmol/L Critically high 98-107 [facility] Comment on above: Performed By: #### BMP #### [facility] [address] [place] [address] Dr. Santhosh Francois CO2 [Moles/Vol] 21.1 mmol/L Normal 21.0-32.0 [facility] Comment on above: Performed By: #### BMP #### [facility] [address] [place] [address] Dr. Santhosh Francois Creatinine [Mass/Vol] 1.12 mg/dL Normal 0.70-1.30 [facility] Comment on above: Performed By: #### BMP #### [facility] [address] [address] [address] Santhosh Francois EGFR-AF MONTENEGRIN >60 Normal >=60 [facility] Comment on above: Performed By: #### BMP #### [facility] [address] [address] [address] Santhosh Francois EGFR-NON AF MONTENEGRIN >60 Normal >=60 [facility] Comment on above: Performed By: #### BMP #### [facility] [address] [place] [address] Dr. Santhosh Francois Glucose [Mass/Vol] 90 mg/dL Normal 74-106 [facility] Comment on above: Performed By: #### BMP #### [facility] [address] [place] [address] Dr. Santhosh Francois Potassium [Moles/Vol] 3.7 mmol/L Normal 3.5-5.1 [facility] Comment on above: Performed By: #### BMP #### [facility] [address] [place] [address] Dr. Santhosh Francois Sodium [Moles/Vol] 144 mmol/L Normal 136-145 [facility] Comment on above: Performed By: #### BMP #### [facility] [address] [place] [address] Dr. Santhosh Francois Urea nitrogen [Mass/Vol] 23.0 mg/dL Critically high 7.0-18.0 [facility] Comment on above: Performed By: #### BMP #### [facility] [address] [place] [address] Dr. Santhosh Francois Urea nitrogen/Creati nine [Mass ratio] 20.5 mg/mg Normal [facility] Comment on above: Performed By: #### BMP #### [facility] [address] [place] [address] Dr. Santhosh Francois URINE MICROSCOPIC ONLYon BACTERIA NONE SEEN Normal NONE SEEN [facility] Comment on above: Performed By: #### SKYLAR UMICRO #### [facility] [address] [place] [address] Dr. Santhosh Francois Bacteria identified Cx Nom (U) NOT INDICATED Normal [facility] Comment on above: Performed By: #### SKYLAR UMICRO #### [facility] [address] [place] [address] Dr. Santhosh Francois CAST NONE SEEN Normal NONE SEEN [facility] Comment on above: Performed By: #### SKYLAR UMICRO #### [facility] [address] [place] [address] Dr. Santhosh Francois Crystals LM Nom (Urine sed) NONE SEEN Normal NONE SEEN [facility] Comment on above: Performed By: #### SKYLAR UMICRO #### [facility] [address] [place] [address] Dr. Santhosh Francois Epithelial cells LM Ql (Urine sed) NONE SEEN Normal NONE SEEN /RARE [facility] Comment on above: Performed By: #### SKYLAR UMICRO #### [facility] [address] [place] [address] Dr. Santhosh Francois MUCOUS NONE SEEN Normal NONE SEEN [facility] Comment on above: Performed By: #### SKYLAR UMICRO #### [facility] [address] [place] [address] Dr. Santhosh Francois RBC (U) [#/Vol] /uL Abnormal 0-2 [facility] Comment on above: Performed By: #### SKYLAR UMICRO #### [facility] [address] [place] [address] Dr. Santhosh Francois WBC 10-20 Abnormal NONE SEEN [facility] Comment on above: Performed By: #### SKYLAR UMICRO #### [facility] [address] [place] [address] Dr. Santhosh Francois CBC AUTO DIFFon 06-10-2022 BASO # 0.1 103/ul Normal 0.0-0.1 [facility] Comment on above: Performed By: #### CBC #### [facility] [address] [place] [address] Dr. Santhosh Francois Basophils/100 WBC (Bld) 0.8 % Normal 0.2-2.0 [facility] Comment on above: Performed By: #### CBC #### [facility] [address] [place] [address] Dr. Santhosh Francois EO # 0.1 103/ul Normal 0.0-0.7 [facility] Comment on above: Performed By: #### CBC #### [facility] [address] [place] [address] Dr. Santhosh Francois Eosinophils/100 WBC (Bld) 1.9 % Normal 0.9-7.0 [facility] Comment on above: Performed By: #### CBC #### [facility] [address] [place] [address] Dr. Santhosh Francois Erythrocyte distribution width (RBC) [Ratio] 16.4 % Critically high 11.0-15.0 [facility] Comment on above: Performed By: #### CBC #### [facility] [address] [place] [address] Dr. Santhosh Francois Hematocrit (Bld) [Volume fraction] 43.0 % Normal 42.0-54.0 [facility] Comment on above: Performed By: #### CBC #### [facility] [address] [place] [address] Dr. Santhosh Francois Hemoglobin (Bld) [Mass/Vol] 13.4 g/dL Critically low 14.0-18.0 [facility] Comment on above: Performed By: #### CBC #### [facility] [address] [place] [address] Dr. Santhosh Francois IG # 0.02 10e3/ul Normal 0.00-0.03 [facility] Comment on above: Performed By: #### CBC #### [facility] [address] [place] [address] Dr. Santhosh Francois IG % 0.3 % Normal 0.0-0.5 [facility] Comment on above: Performed By: #### CBC #### [facility] [address] [place] [address] Dr. Santhosh Francois LYMPH # 1.8 103/ul Normal 1.2-3.8 [facility] Comment on above: Performed By: #### CBC #### [facility] [address] [place] [address] Dr. Santhosh Francois Lymphocytes/100 WBC (Bld) 29.2 % Normal 20.5-60.0 [facility] Comment on above: Performed By: #### CBC #### [facility] [address] [place] [address] Dr. Santhosh Francois MANUAL DIFF REQ NO Normal [facility] Comment on above: Performed By: #### CBC #### [facility] [address] [place] [address] Dr. Santhosh Francois MCH (RBC) [Entitic mass] 30.5 pg Normal 25.9-34.0 [facility] Comment on above: Performed By: #### CBC #### [facility] [address] [place] [address] Dr. Santhosh Francois MCHC (RBC) [Mass/Vol] 31.2 g/dL Normal 29.9-35.2 [facility] Comment on above: Performed By: #### CBC #### [facility] [address] [place] [address] Dr. Santhosh Francois MCV (RBC) [Entitic vol] 97.9 fL Critically high 80.0-94.0 [facility] Comment on above: Performed By: #### CBC #### [facility] [address] [place] [address] Dr. Santhosh Francois MONO # 0.4 103/ul Normal 0.3-0.8 [facility] Comment on above: Performed By: #### CBC #### [facility] [address] [place] [address] Dr. Santhosh Francois Monocytes/100 WBC (Bld) 6.3 % Normal 1.7-12.0 [facility] Comment on above: Performed By: #### CBC #### [facility] [address] [address] [address] Santhosh Francois NEUT # 3.8 103/ul Normal 1.4-6.5 [facility] Comment on above: Performed By: #### CBC #### [facility] [address] [address] [address] Santhosh Francois Neutrophils/100 WBC (Bld) 61.5 % Normal 43.0-75.0 [facility] Comment on above: Performed By: #### CBC #### [facility] [address] [address] [address] Santhosh Francois Platelet mean volume (Bld) [Entitic vol] 10.5 fL Normal 9.5-13.5 [facility] Comment on above: Performed By: #### CBC #### [facility] [address] [place] [address] Dr. Santhosh Francois PLT 148 103/ul Critically low 150-450 [facility] Comment on above: Performed By: #### CBC #### [facility] [address] [place] [address] Dr. Santhosh Francois RBC 4.39 106/ul Critically low 4.70-6.10 [facility] Comment on above: Performed By: #### CBC #### [facility] [address] [place] [address] Dr. Santhosh Francois WBC 6.2 103/ul Normal 4.0-11.0 [facility] Comment on above: Performed By: #### CBC #### [facility] [address] [place] [address] Dr. Santhosh Francois IRONon 03-07-2022 Iron [Mass/Vol] 125.0 ug/dL Normal 65.0-175.0 [facility] Comment on above: Performed By: #### IRON #### [facility] [address] [place] [address] Dr. Santhosh Francois CBC AUTO DIFFon 12-03-2021 BASO # 0.0 103/ul Normal 0.0-0.1 [facility] Comment on above: Performed By: #### CBC #### [facility] [address] [address] [address] Santhosh Francois Basophils/100 WBC (Bld) 0.7 % Normal 0.2-2.0 [facility] Comment on above: Performed By: #### CBC #### [facility] [address] [address] [address] Santhosh Francois EO # 0.2 103/ul Normal 0.0-0.7 [facility] Comment on above: Performed By: #### CBC #### [facility] [address] [place] [address] Dr. Santhosh Francois Eosinophils/100 WBC (Bld) 3.1 % Normal 0.9-7.0 [facility] Comment on above: Performed By: #### CBC #### [facility] [address] [place] [address] Dr. Santhosh Francois Hematocrit (Bld) [Volume fraction] 40.4 % Critically low 42.0-54.0 [facility] Comment on above: Performed By: #### CBC #### [facility] [address] [place] [address] Dr. Santhosh Francois Hemoglobin (Bld) [Mass/Vol] 11.5 g/dL Critically low 14.0-18.0 [facility] Comment on above: Performed By: #### CBC #### [facility] [address] [place] [address] Dr. Santhosh Francois IG # 0.01 10e3/ul Normal 0.00-0.03 [facility] Comment on above: Performed By: #### CBC #### [facility] [address] [place] [address] Dr. Santhosh Francois IG % 0.2 % Normal 0.0-0.5 [facility] Comment on above: Performed By: #### CBC #### [facility] [address] [place] [address] Dr. Santhosh Francois LYMPH # 2.0 103/ul Normal 1.2-3.8 [facility] Comment on above: Performed By: #### CBC #### [facility] [address] [place] [address] Dr. Santhosh Francois Lymphocytes/100 WBC (Bld) 33.9 % Normal 20.5-60.0 [facility] Comment on above: Performed By: #### CBC #### [facility] [address] [place] [address] Dr. Santhosh Francois MANUAL DIFF REQ NO Normal [facility] Comment on above: Performed By: #### CBC #### [facility] [address] [place] [address] Dr. Santhosh Francois MCH (RBC) [Entitic mass] 24.1 pg Critically low 25.9-34.0 [facility] Comment on above: Performed By: #### CBC #### [facility] [address] [place] [address] Dr. Santhosh Francois MCHC (RBC) [Mass/Vol] 28.5 g/dL Critically low 29.9-35.2 [facility] Comment on above: Performed By: #### CBC #### [facility] [address] [place] [address] Dr. Santhosh Francois MCV (RBC) [Entitic vol] 84.5 fL Normal 80.0-94.0 [facility] Comment on above: Performed By: #### CBC #### [facility] [address] [place] [address] Dr. Santhosh Francois MONO # 0.4 103/ul Normal 0.3-0.8 [facility] Comment on above: Performed By: #### CBC #### [facility] [address] [place] [address] Dr. Santhosh Francois Monocytes/100 WBC (Bld) 7.7 % Normal 1.7-12.0 [facility] Comment on above: Performed By: #### CBC #### [facility] [address] [place] [address] Dr. Santhosh Francois NEUT # 3.1 103/ul Normal 1.4-6.5 [facility] Comment on above: Performed By: #### CBC #### [facility] [address] [place] [address] Dr. Santhosh Francois Neutrophils/100 WBC (Bld) 54.4 % Normal 43.0-75.0 [facility] Comment on above: Performed By: #### CBC #### [facility] [address] [address] [address] Santhosh Francois Platelet mean volume (Bld) [Entitic vol] 10.0 fL Normal 9.5-13.5 [facility] Comment on above: Performed By: #### CBC #### [facility] [address] [address] [address] Santhosh Francois PLT 191 103/ul Normal 150-450 [facility] Comment on above: Performed By: #### CBC #### [facility] [address] [address] [address] Santhosh Francois RBC 4.78 106/ul Normal 4.70-6.10 [facility] Comment on above: Performed By: #### CBC #### [facility] [address] [place] [address] Dr. Santhosh Francois WBC 5.8 103/ul Normal 4.0-11.0 [facility] Comment on above: Performed By: #### CBC #### [facility] [address] [place] [address] Dr. Santhosh Francois MR prostate wo/w conon 09-17 MR prostate wo/w con [facility] [place] [address] MRI Report Signed Patient: Shabnam Burgess MR#: [id number] : 1955 Acct:[id number] Age/Sex: 65 / M ADM Date: 09/16/21 Loc: MR Room: Type: [facility] Attending Dr: Puneet Briggs MD Ordering [...] AM COT by: Tomy Garza MD Diplomate, [employer] Report Completed: Sep 17, 2021 10:46:46 AM COT This transmission is proprietary, privileged and confidential. It is intended to be communication only for the use of the addressee; access to this message by anyone else is unaut Transcribed By: 09/17/21 1348 Dictated By: NON STAFF 09/17/21 1046 Signed By: 09/17/21 1349 [facility] Blood Urea Nitrogenon 2020 Urea nitrogen [Mass/Vol] 21 mg/dL Normal 9-23 [facility] Comment on above: Order Comment: STAT FOR MRI Performed By: #### C REAT, BUN #### [facility] [address] [place] [address] [place] Creatinineon 09-03-2021 Creatinine [Mass/Vol] 1.01 mg/dL Normal 0.64-1.27 [facility] Comment on above: Order Comment: STAT FOR MRI Performed By: #### C REAT, BUN #### [facility] [address] [place] [address] [place] Creatinine Clr Calc Pharmacy 90.06 [facility] Comment on above: Order Comment: STAT FOR MRI Result Comment: PERF ORMED BY: [place] [address] PATHOLOGIST CONFIGURATION MANAGER TONNY ZHOU M.D. Performed By: #### C REAT, BUN #### [facility] [address] [place] [address] Estimated GFR ( Teresita > 60 [facility] Comment on above: Order Comment: STAT FOR MRI Result Comment: GFR estimated reference range: According to KDOQI guidelines, <60 ml/min/1.73m2 is sufficient to diagnose a patient with chronic kidney disease. Performed By: #### C REAT, BUN #### [facility] [address] [place] [address] [place] Estimated GFR (Non- Am > 60 [facility] Comment on above: Order Comment: STAT FOR MRI Performed By: #### C MITCHELL POLK #### [facility] [address] [id number] [facility] Ironon 04-15-2019 Iron [Mass/Vol] 22 ug/dL Low 59-158 [facility] Comment on above: Performed By: #### CP #### [facility] [address] [place] [address] Dr. [place], [place] [id number] Prison Keeper: Frank Mercado MD #### B12, FE #### [address] [id number] Prison Keeper: Rainer Araujo MD Vitamin B12on 04-15-2019 Cobalamin (Vitamin B12) [Mass/Vol] 1062 pg/mL Normal 232-1245 [facility] Comment on above: Performed By: #### CP #### [facility] [address] [place] [address] [place] [address] Prison Keeper: Frank Mercado MD #### B12, FE #### [address] [id number] Prison Keeper: Rainer Araujo MD Comp Metabolic Profon 2018 Albumin [Mass/Vol] 4.2 g/dL Normal 3.5-5.2 [facility] Comment on above: Performed By: #### CP #### [facility] [address] [place] [address] [place] [address] Prison Keeper: Frank Mercado MD #### B12, FE #### [address] [id number] Prison Keeper: Rainer Araujo MD Albumin/Globuli n [Mass ratio] 1.6 {ratio} Normal 1.0-2.5 [facility] Comment on above: Performed By: #### CP #### [facility] [address] [place] [address] Dr. [place]Z, [place] [phone] Prison Keeper: Frank Mercado MD #### B12, FE #### [address] [place] [id number] Prison Keeper: Rainer Araujo MD Alkaline Phos 120 U/L Normal 40-129 [facility] Comment on above: Performed By: #### CP #### [facility] [address] [place] [address] Dr. [place]Z, [place] [phone] Prison Keeper: Frank Mercado MD #### B12, FE #### [address] [id number] Prison Keeper: Rainer Araujo MD Bilirubin Ql (U) 0.72 mg/dL Normal 0.3-1.2 [facility] Comment on above: Performed By: #### CP #### [address] [id number] Prison Keeper: Frank Mercado MD #### B12, FE #### [address] [id number] Prison Keeper: Rainer Araujo MD Protein [Mass/Vol] 6.8 g/dL Normal 6.4-8.3 [facility] Comment on above: Performed By: #### CP #### [address] [place] [id number] Prison Keeper: Frank Mercado MD #### B12, FE #### [address] [address] Prison Keeper: Rainer Araujo MD (cont.) [facility] Comment on above: Result Comment: Average GFR for 60-69 ye ars old: 85 mL/min/1.73sq m Chronic Kidney Disease: <60 mL/min/1.73sq m Kidney failure: <15 mL/min/1.73sq m eGFR calculated using average adult body mass. Additional eGFR calculator available at: http://[email or web address]_crcl_2012.htm Performed By: #### C P #### [address] [place] [id number] Prison Keeper: Frank Mercado MD #### B12, FE #### [facility] [address] [place] [id number] Prison Keeper: Rainer Araujo MD ALT [Catalytic activity/Vol] 29 U/L Normal 5-41 [facility] Comment on above: Performed By: #### CP #### [facility] [address] [place] [address] Prison Keeper: Frank Mercado MD #### B12, FE #### [address] [address] Prison Keeper: Rainer Araujo MD Anion gap [Moles/Vol] 10 mmol/L Normal [facility] Comment on above: Performed By: #### CP #### [facility] [address] [place], [place] [phone] Prison Keeper: Frank Mercado MD #### B12, FE #### [address] [address] Prison Keeper: Rainer Araujo MD AST [Catalytic activity/Vol] 26 U/L Normal <40 [facility] Comment on above: Performed By: #### CP #### [facility] [address] [place] [address] Prison Keeper: Frank Mercado MD #### B12, FE #### [address] [address] Prison Keeper: Rainer Araujo MD BUN/CRE Ratio 24 High 9-20 [facility] Comment on above: Performed By: #### CP #### [facility] [address] [place] [address] Prison Keeper: Frank Mercado MD #### B12, FE #### [address] [address] Prison Keeper: Rainer Araujo MD Calcium [Mass/Vol] 8.2 mg/dL Low 8.6-10.4 [facility] Comment on above: Performed By: #### CP #### [facility] [address] [place], [place] [id number] Prison Keeper: Frank Mercado MD #### B12, FE #### [address] [address] Prison Keeper: Rainer Araujo MD Chloride [Moles/Vol] 115 mmol/L High 98-107 [facility] Comment on above: Performed By: #### CP #### [facility] [address] [place], [place] [phone] Prison Keeper: Frank Mercado MD #### B12, FE #### [address] [address] Prison Keeper: Rainer Araujo MD CO2 [Moles/Vol] 17 mmol/L Low 20-31 [facility] Comment on above: Performed By: #### CP #### [facility] [address] [place], [place] [id number] Prison Keeper: Frank Mercado MD #### B12, FE #### [address] [address] Prison Keeper: Rainer Araujo MD Creatinine [Mass/Vol] 1.11 mg/dL Normal 0.70-1.20 [facility] Comment on above: Performed By: #### CP #### [facility] [address] [place], [place] [id number] Prison Keeper: Frank Mercado MD #### B12, FE #### [address] [address] Prison Keeper: Rainer Araujo MD GFR, Amer >60 Normal >60 [facility] Comment on above: Performed By: #### CP #### [facility] [address] [place] [address] [place] [address] Prison Keeper: Frank Mercado MD #### B12, FE #### [facility] [address] [place] [address] Prison Keeper: Rainer Araujo MD GFR,non Amer >60 Normal >60 [facility] Comment on above: Performed By: #### CP #### [facility] [address] [place] [address] Dr. [place], [place] [id number] Prison Keeper: Frank Mercado MD #### B12, FE #### [address] [address] Prison Keeper: Rainer Araujo MD Glucose [Mass/Vol] 103 mg/dL High 70-99 [facility] Comment on above: Performed By: #### CP #### [address] [place] [address] Prison Keeper: Frank Mercado MD #### B12, FE #### [address] [address] Prison Keeper: Rainer Araujo MD Potassium [Moles/Vol] 4.1 mmol/L Normal 3.7-5.3 [facility] Comment on above: Performed By: #### CP #### [facility] [address] [place] [address] [place] [address] Prison Keeper: Frank Mercado MD #### B12, FE #### [facility] [address] [place] [address] Prison Keeper: Rainer Araujo MD Sodium [Moles/Vol] 142 mmol/L Normal 135-144 [facility] Comment on above: Performed By: #### CP #### [facility] [address] [place] [address] [place] [address] Prison Keeper: Frank Mercado MD #### B12, FE #### [address] [place] [place], [place] [id number] Prison Keeper: Rainer Araujo MD Staging: Normal [facility] Comment on above: Result Comment: Stage 1: Some kidney dam age normal GFR Stage 2: Mild kidney damage GFR 60-89 Stage 3: Moderate kidney damage GFR 30-59 Stage 4: Severe kidney damage GFR 15-29 Stage 5: Severe kidney damage GFR <15 ESRD - chronic treatment by dialysis or transplant Performed By: #### C P #### [facility] [address] [place] [address] [place] [address] Prison Keeper: Frank Mercado MD #### B12, FE #### [address] [id number] Prison Keeper: Rainer Araujo MD Urea nitrogen [Mass/Vol] 27 mg/dL High 8-23 [facility] Comment on above: Performed By: #### CP #### [address] [place], [place] [phone] Prison Keeper: Frank Mercado MD #### B12, FE #### [address] [id number] Prison Keeper: Rainer Araujo MD Vital Signs Date Time Vital Sign Value Performing Clinician Facility 11-04-2023 15:54-0500 Body height 177.8 cm Park Yoder [facility] Work Phone: [facility] 11-04-2023 15:54-0500 Body mass index (BMI) [Ratio] 34.47 kg/m2 Park Yoder [facility] Work Phone: [facility] 11-04-2023 15:54-0500 Body temperature 97.11 [degF] Park Yoder [facility] Work Phone: [facility] 11-04-2023 15:54-0500 Body weight 108.95 kg Park Yoder [facility] Work Phone: [facility] 11-04-2023 15:54-0500 Diastolic blood pressure 78 mm[Hg] Park Paresh [facility] Work Phone: [facility] 11-04-2023 15:54-0500 Heart rate 66 /min Park Paresh [facility] Work Phone: [facility] 11-04-2023 15:54-0500 Respiratory rate 18 /min Park Mikez [facility] Work Phone: [facility] 11-04-2023 15:54-0500 SaO2% (BldA) [Mass fraction] 97 % Park Mikez [facility] Work Phone: [facility] 11-04-2023 15:54-0500 Systolic blood pressure 118 mm[Hg] Park Mkholz [facility] Work Phone: [facility] 10-19-2023 15:01-0500 Blood Pressure Location Puneet BRIGGS [facility] 10-19-2023 15:01-0500 Diastolic blood pressure 60 mm[Hg] Puneet BRIGGS [facility] 10-19-2023 15:01-0500 Heart rate 64 /min Puneet BRIGGS [facility] 10-19-2023 15:01-0500 Respiratory rate 16 /min Puneet BRIGGS [facility] 10-19-2023 15:01-0500 Systolic blood pressure 109 mm[Hg] Puneet BRIGGS [facility] 04-13-2023 15:59-0400 Blood Pressure Location Puneet BRIGGS [facility] 04-13-2023 15:59-0400 Diastolic blood pressure 80 mm[Hg] Puneet BRIGGS [facility] 04-13-2023 15:59-0400 Heart rate 68 /min Puneet BRIGGS [facility] 04-13-2023 15:59-0400 Respiratory rate 16 /min Puneet BRIGGS [facility] 04-13-2023 15:59-0400 Systolic blood pressure 130 mm[Hg] Puneet BRIGGS [facility] 11-04-2022 14:37-0500 Blood Pressure Location Puneet BRIGGS [facility] 11-04-2022 14:37-0500 Diastolic blood pressure 69 mm[Hg] Puneet BRIGGS [facility] 11-04-2022 14:37-0500 Heart rate 68 /min Puneet BRIGGS [facility] 11-04-2022 14:37-0500 Systolic blood pressure 118 mm[Hg] Puneet BRIGGS [facility] 05-19-2022 15:59-0400 Blood Pressure Location Puneet BRIGGS [facility] 05-19-2022 15:59-0400 Diastolic blood pressure 66 mm[Hg] Puneet BRIGGS [facility] 05-19-2022 15:59-0400 Heart rate 59 /min Puneet BRIGGS [facility] 05-19-2022 15:59-0400 Respiratory rate 16 /min Puneet BRIGGS [facility] 05-19-2022 15:59-0400 Systolic blood pressure 117 mm[Hg] Puneet BRIGGS [facility] Encounters Encounter Date Encounter Type Care Provider Facility Start: 07-22-2024 End: 07-22-2024 ambulatory PARK AICHHOLZ Not Available Start: 05-25-2024 End: 05-25-2024 ambulatory PARK AICHHOLZ Not Available Start: 04-27-2024 End: 04-27-2024 ambulatory YISEL Terry [facility] Start: 04-06-2024 End: 04-06-2024 ambulatory LITO GANNON Not Available Start: 03-30-2024 End: 03-30-2024 ambulatory PARK AICHHOLZ Not Available Start: 02-18-2024 End: 02-18-2024 ambulatory PARK AICHHOLZ Not Available Start: 11-04-2023 End: 11-04-2023 ambulatory PARK AICHHOLZ Not Available Start: 11-04-2023 End: 11-04-2023 Office outpatient visit 15 minutes Park Aichholz [facility] Work Phone: [facility] Comment on above: 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); BMI 37.0-37.9, adult; Nonischemic cardiomyopathy (CMS/HCC); Primary hypertension (CMS/HCC); Chronic systolic heart failure (CMS/HCC); H/O bariatric surgery; Mixed hyperlipidemia (CMS/HCC) Start: 11-04-2023 Bamboo flowsheet Park Aichholz [facility] Work Phone: [facility] Start: 11-04-2023 Bamboo flowsheet Park Aichholz [facility] Work Phone: [facility] Start: 10-19-2023 ambulatory Puneet Muller ty:JAYASHREE Estrada Start: 10-19-2023 End: 10-19-2023 Patient encounter procedure Puneetyann BRIGGS [facility] Start: 04-13-2023 End: 04-14-2023 ambulatory Puneetyann BRIGGS Facility:[facility] [place] Start: 04-13-2023 End: 04-13-2023 Patient encounter procedure Puneet R ANAHI [facility] Start: 03-18-2023 End: 03-19-2023 ambulatory Puneetyann BRIGGS Facility:[facility] Start: 03-18-2023 End: 03-18-2023 Patient encounter procedure Puneetyann BRIGGS [facility] Start: 11-24-2022 ambulatory Puneetyann BRIGGS Facili ty:[facility] [place] Start: 11-21-2022 End: 11-22-2022 ambulatory CANNON CREWMEMBER PARK YODER Facility:[facility] Start: 11-04-2022 End: 11-05-2022 ambulatory Puneetyann BRIGGS Facility:[facility] Start: 11-04-2022 End: 11-04-2022 Patient encounter procedure Puneet BRIGGS [facility] Start: 09-12-2022 End: 09-12-2022 ambulatory DEANNE OBRIEN . Facility:[facility] Start: 05-19-2022 End: 05-20-2022 ambulatory Puneet R BRIGGS Facility:[facility] [place] Start: 05-19-2022 End: 05-19-2022 Patient encounter procedure Puneet R ANAHI [facility] Start: 05-16-2022 End: 05-17-[address] DOCTOR HOWE Facility:[facility] Start: 04-30-2022 End: 04-30-[address] CASSIDY DILLON Facility:[facility] Start: 03-07-2022 End: 03-08-2022 ambulatory LILIANA YODER Facility:[facility] Start: 01-01-2022 End: 01-01-2022 Patient encounter procedure Ary ARTEAGA [facility] Estrada Start: 12-18-2021 End: 12-18-[address] ARY ARTEAGA . Facility:[facility] Start: 12-14-2021 ambulatory LILIANA YODER Facil ity:[facility] Start: 12-03-2021 End: 12-04-2021 ambulatory LILIANA YODER Facility:[facility] Start: 04-14-2019 End: 04-15-2019 Patient encounter procedure PARK YODER [facility] Start: 01-28-2018 End: 01-29-2018 Ambulatory DEFAULT PHYSICIAN Facility:[facility] Procedures Date Procedure Procedure Detail Performing Clinician Start: 04-27-2024 Follow-up visit Follow-up YISEL MITCHELL Start: 11-21-[address] PUNEET BRIGGS . Comment on above: Performed By: #### PSAD #### [facility] [address] [place] [address] Dr. Santhosh Francois Start: 11-04-2022 Cystoscopy Puneet BRIGGS Start: 05-16-[address] PUNEET BRIGGS . Comment on above: Performed By: #### PSAD #### [facility] [address] [place] [address] Dr. Santhosh Francois Start: 12-18-2021 Colonoscopy Ary ARTEAGA Start: 12-18-2021 Esophagogastroduodenoscopy Ary ARTEAGA Start: 11-14-2021 MRI-US fusion guided transrectal biopsy of prostate Ary ARTEAGA Start: 03-27-2021 Transrectal biopsy of prostate using ultrasound guidance Ary ARTEAGA Start: 03-22-2020 Transurethral prostatectomy Ary ARTEAGA Start: 04-14-2019 Assay of iron PARK YODER Start: 04-14-2019 Comprehensive metabolic panel PARK JESUS Start: 04-14-2019 Cyanocobalamin vitamin b-12 PARK Martinez Start: 01-12-2017 Cystoscope, device (physical object) Ary NILL Start: 09-28-1999 Esophagogastrostomy, antesternal or antethoracic Ary NILL Appendectomy Ary NILL Cardiac catheterization Devang mckeon NILL Cholecystectomy Ary NILL Colonoscopy Ary NILL History of radiofreq uency ablation operation for arrhythmia Ary NILL Lithotripsy Ary NILL Comment on above: x3 Repair of umbilical hernia M ichmike NILL Plan of Treatment Date Care Activity Detail Author Start: 12-28-2023 Screening for malign ant neoplasm of colon [facility] Start: 05-29-2023 Influenza vaccination Influenza Vacc ine (#1) [facility] Start: 11-28-1963 Pneumococcal Vaccine : 65+ Years (1 - PCV) Pneumococcal Vaccine: 65+ Years (1 - PCV) [facility] Start: 1955 Screening for malign ant neoplasm of colon [facility] Immunizations Immunization Date Immunization Notes Care Provider Fa cili 08-12-2023 Influenza, High-dose Seasonal, Quadrivalent, Preservative Free Park Tatianagalindoquiana [facility]IA Work Phone: [facility] 07-29-2021 influenza virus vaccine, unspecified formulation Ary ALBERTL [facility] [place] 02-13-2021 SARS-CoV-2 (COVID-19 ) mRNA BNT-162b2 vax Puneet BRIGGS [facility] 01-23-2021 SARS-CoV-2 (COVID-19 ) mRNA BNT-162b2 vax Puneet BRIGGS [facility] 09-28-2020 SARS-CoV-2 (COVID-19 ) mRNA BNT-162b2 vax Ary PRAVIN [facility] [place] 07-02-2020 influenza virus vaccine, unspecified formulation Ary ARTEAGA [facility] [place] Payers Date Payer Category Payer Unknown 1957 Unknown [id number] 1955 Unknown [id number] 2.16.84 0.1.103470.3.579.2.593 1957 Unknown [id number] 2.16.84 0.1.642291.3.579.2.593 1957 Unknown [id number] 2.16.84 0.1.216163.3.579.2.593 1957 Unknown [id number] 2.16.84 0.1.673812.3.579.2.593 1957 Unknown [id number] 2.16.84 0.1.743185.3.579.2.593 1957 Unknown [id number] 2.16.84 0.1.283728.3.579.2.593 1957 Unknown [id number] 2.16.84 0.1.890017.3.579.2.593 1957 Unknown [id number] 2.16.84 0.1.660701.3.579.2.593 1957 Unknown [id number] 2.16.84 0.1.355844.3.579.2.593 1957 Unknown [id number] 2.16.8 40.1.259043.3.579.2.727 1957 Unknown [id number] 2.16.8 40.1.488120.3.579.2.727 1957 Unknown [id number] 2.16.8 40.1.308203.3.579.2.727 1957 Unknown [id number] 2.16.8 40.1.106598.3.579.2.727 1957 Unknown [id number] 2.16.8 40.1.919023.3.579.2.727 1957 Unknown [id number] 2.16.8 40.1.922589.3.579.2.727 1957 Unknown [id number] 2.16.8 40.1.214895.3.579.2.1286 1957 Unknown [id number] 2.16.84 0.1.133608.3.579.2.1259 1957 Unknown [id number] 2.16.84 0.1.335916.3.579.2.1259 1957 Unknown [id number] 2.16.84 0.1.141083.3.579.2.1259 1957 Unknown [id number] 2.16.84 0.1.517519.3.579.2.1259 1957 Unknown [id number] 2.16.84 0.1.521007.3.579.2.1259 1957 Unknown [id number] 2.16.84 0.1.240898.3.579.2.1259 1957 Unknown [id number] 2.16.84 0.1.211143.3.579.2.1259 1957 Unknown [id number] 2.16.84 0.1.602903.3.579.2.1259 Social History Date Type Detail Facility Start: 12-06-2021 End: 10-26-2023 Tobacco smoking status Never smoked tobacco (finding) [facility] Tobacco smoking status Never [facility] [place] Start: 10-26-2023 End: 11-04-2023 Sex Assigned At Male [facility] Start: 10-19-2023 Tobacco smoking status Light t obacco smoker (finding) [facility] Start: 10-26-2023 End: 11-04-2023 History of Social function [facility] Start: 1955 Sex Assigned At Not on file [facility] Start: 11-04-2023 Alcohol intake Ex-drinker (finding) [facility] Start: 11-04-2023 Alcohol Comment caffine: 3 cups lucretia y [facility] Functional Status Date Assessment Result Facility 10-19-2023 Functional Status Yes [facility] 04-13-2023 Functional Status N/A [facility] 11-04-2022 Functional Status N/A [facility] 05-19-2022 Functional Status N/A [facility] Clinical Notes 12-18-2021 to 11-04-2023 Park Yoder NP - 11/04/2023 4:06 PM Nia Yoder NP - 11/04/2023 4:06 PM Nia Yoder NP - 11/04/2023 4:06 PM Nia Yoder NP - 11/04/2023 4:05 PM EST Note Date [...] cont current meds documented in this encounter [facility] 10-19-2023 Hospital Discharge instructions Patient Education 10/19/2023 [...] urethra. Follow these instructions at home: Take mern-avm-tocalnz and prescription medicines only as told by [...] provider. Document Revised: 04/02/2022 Document Reviewed: 04/02/2022 [employer] Patient Education 2022 [employer] Follow Up Care 04/13/2023 16:26:55 With:ANAHI MCDONALD, Puneet Ross, HEL Address: [facility] [address], [place] [phone]- When:Within 1 Year(s) Comments:w/PSA [facility] [place] 04-13-2023 Hospital Discharge instructions Patient Education [...] the likelihood that the cancer will spread. [place] 6 or lower: This indicates that the cancer cells look similar to normal prostate cells (well differentiated). [place] 7: This indicates that the cancer cells look somewhat similar to normal prostate cells (moderately differentiated). [place] 8, 9, or 10: This indicates that [...] stress of having cancer. General instructions Take blfs-niw-abqcidz and prescription medicines only as told by your health care provider. If you have to go to the hospital, notify your cancer specialist (oncologist). Keep all follow-up visits. This is important. Where to find more information [employer]: www.cancer.org [employer] Clinical Oncology: www.cancer.net National Cancer [place]: www.cancer.gov Contact a health care provider if: [...] provider. Document Revised: 12/11/2021 Document Reviewed: 12/11/2021 [employer] Patient Education 2022 [employer] Follow Up Care 03/16/2023 14:05:40 With:ANAHI MCDONALD, Puneet Ross, URL Address: [facility] [address] [place] [address] [phone] When: Unknown Comments:6 mos w/ PSA and PVR [facility] 11-03-2022 Hospital Discharge instructions Patient Education [...] urethra. Follow these instructions at home: Take toon-rsw-gxbfgqx and prescription medicines only as told by [...] 09/14/2006 Document Revised: 08/09/2019 Document Reviewed: 10/19/2017 [employer] Patient Education 2020 [employer] Follow Up Care 10/13/2022 13:53:44 With:ANAHI MCDONALD, Puneet Ross, URL Address: [facility] [address] , [place] [address]- When: Unknown [facility] 05-19-2022 Hospital Discharge instructions Patient Education 05/19/2022 16:24:13 Prostatitis, Zhir-cy-Ueai Prostatitis Prostatitis is swelling of the prostate gland. The prostate helps to make semen. It is below a man's bladder, in front of the rectum. There are different types of prostatitis. Follow these instructions at home: Take gpwl-avv-yplkyga and prescription medicines only as told by [...] 03/15/2013 Document Revised: 08/27/2018 Document Reviewed: 06/04/2017 [employer] Patient Education 2020 [employer] 05/19/2022 16:24:11 Calorie Counting for Weight Loss [...] 09/14/2006 Document Revised: 06/03/2019 Document Reviewed: 08/14/2017 [employer] Patient Education 2020 [employer] Follow Up Care 11/22/2021 12:25:13 With:ANAHI MCDONALD, Puneet Ross, URL Address: [address] [place] [id number] Business (1) When:Within 6 Month(s) Comments:w/FESTUS [facility] 12-18-2021 Note OPERATIVE NOTE PREOPERATIVE [...] the poor prep. CC: Park Yoder, LILIANA [facility] Signed and Approved by: DR ARY ARTEAGA . 12/20/2021 11:57:00 [facility] Evaluation + Plan note Future Appointments Appointment Date:05/19/2022 03:15:00 PM Scheduled Provider:Puneet BRIGGS MD Location:[facility] Appointment Type:URO Office Visit [facility] [place] Evaluation + Plan note Future Appointments Appointment Date:11/24/2022 03:30:00 PM Scheduled Provider:Puneet BRIGGS MD Location:[facility] Appointment Type:URO Office Visit Diagnostic Tests PendingPSA Total 05/19/22 [facility] Evaluation + Plan note Future Appointments Appointment Date:03/18/2023 08:30:00 AM Scheduled Provider:Puneet BRIGGS MD Location:[facility] Appointment Type:URO Office Visit Diagnostic Tests PendingUroVysion Fish and Urine Cyto ([facility]) 11/04/22 [facility] [employer] Evaluation + Plan note Future Appointments Appointment Date:03/23/2023 03:00:00 PM Scheduled Provider:Puneet BRIGGS MD Location:[facility] Appointment Type:URO Office Visit [facility] [employer] Evaluation + Plan note Future Appointments Appointment Date:10/19/2023 02:45:00 PM Scheduled Provider:Puneet BRIGGS MD Location:[facility] Appointment Type:URO Office Visit Diagnostic Tests PendingPSA Total 04/13/23 [facility] [employer] Evaluation + Plan note Future Appointments Appointment Date:10/24/2024 03:00:00 PM Scheduled Provider:Puneet BRIGGS MD Location:[facility] Appointment Type:URO Office Visit Diagnostic Tests PendingPSA Total 10/19/23 [facility] [employer] Evaluation note Diagnosis Iron deficiency anemia following bariatric surgery- Primary BMI 37.0-37.9, adult Nonischemic cardiomyopathy (CMS/HCC) Other primary cardiomyopathies Primary hypertension (CMS/HCC) Unspecified essential hypertension Chronic systolic heart failure (CMS/HCC) Chronic systolic heart failure H/O bariatric surgery Mixed hyperlipidemia (CMS/HCC) Mixed hyperlipidemia [facility] N[facility] No data available for this section [facility] Discharge instructions No data available for this section [facility] [place] note No data available for this section [facility] [employer] Summary Purpose Family History No Family History [...] content) DATE CREATED AUTHOR 03/18/2018 [facility] DATE CREATED AUTHOR AUTHOR'S ORGANIZ ATION 04/15/2019 [facility] DATE CREATED AUTHOR AUTHOR'S ORGANIZ ATION 12/16/2021 [facility] DATE CREATED AUTHOR AUTHOR'S ORGANIZ ATION 11/28/2022 [facility] DATE CREATED AUTHOR AUTHOR'S ORGANIZ ATION 04/14/2023 [facility] DATE CREATED AUTHOR AUTHOR'S ORGANIZ ATION 04/29/2024 [facility] DATE CREATED AUTHOR AUTHOR'S ORGANIZ ATION 07/24/2024 [facility] dical Specialists EPIC Care Team (unrecognized sect ion and content) Tanker Service Attendant Relationship Specialty Start Date End Date Kenny Hartley MD [address] [place] [phone] PCP - General Family Medicine 10/26/23 Tanker Service Attendant Relationship Specialty Start Date End Date Kenny Hartley MD [address] [place] [id number] PCP - General Family Medicine 10/26/23 FOR [...] BE BASED ON THE PRIMARY CLINICAL RECORDS. [facility] adjust [facility]. provides no warranty or guarantee of the accuracy or completeness of information in this document.
[2024-08-17 16:24] LABS: Basophils Absolute Auto 0.1 10^3/uL (0.0-0.1); Basophils Percent Auto 0.9 % (0.2-2.0); Eosinophils Absolute Auto 0.2 10^3/uL (0.0-0.7); Eosinophils Percent Auto 3.3 % (0.9-7.0); Hematocrit 38.5 % (42.0-54.0); Hemoglobin 11.6 g/dL (14.0-18.0); Immature Granulocytes Abs Auto 0.01 10^3/uL (0.00-0.03); Immature Granulocytes Pct Auto 0.2 % (0.0-0.5); Lymphocytes Absolute Auto 1.9 10^3/uL (1.2-3.8); Lymphocytes Percent Auto 29.1 % (20.5-60.0); Mean Corpuscular HGB Conc 30.1 g/dL (29.9-35.2); Mean Corpuscular Hemoglobin 31.5 pg (25.9-34.0); Mean Corpuscular Volume 104.6 fL (80.0-94.0); Mean Platelet Volume 10.6 fL (9.5-13.5); Monocytes Absolute Auto 0.4 10^3/uL (0.3-0.8); Monocytes Percent Auto 6.9 % (1.7-12.0); Neutrophils Absolute Auto 3.8 10^3/uL (1.4-6.5); Neutrophils Percent Auto 59.6 % (43.0-75.0); Platelet Count 140 10^3/uL (150-450); Red Blood Count 3.68 10^6/uL (4.70-6.10); Red Cell Distribution Width 14.8 % (11.0-15.0); White Blood Count 6.4 10^3/uL (4.0-11.0)
[2024-08-17 16:48] LABS: Alanine Aminotransferase 43 U/L (16-63); Albumin Globulin Ratio 1.2; Albumin Level 3.6 g/dL (3.4-5.0); Alkaline Phosphatase 158 U/L (46-116); Aspartate Amino Transferase 18 U/L (15-37); Bilirubin Direct 0.3 mg/dL (0.0-0.2); Bilirubin Total 0.7 mg/dL (0.2-1.0); Gamma Glutamyl Transpeptidase 15 U/L (15-85); Globulin 2.9 g/dL; Total Protein 6.5 g/dL (6.4-8.2)
== END 2024-08-17 16:07 | disposition home or self-care (01) ==
LOC: LAB 16:09
PROVIDERS: PCP Nurse Practitioner; Visit Provider Nurse Practitioner
DX: R79.89 Other specified abnormal findings of blood chemistry (principal); D69.6 Thrombocytopenia, unspecified; D50.8 Other iron deficiency anemias; K95.89 Other complications of other bariatric procedure
CPT/HCPCS: 36415; 80076; 82728; 82977; 83540; 85025

== ENCOUNTER 2024-10-21 16:21 | Outpatient (OUT) | payer BC, SELFPAY ==
[2024-10-21 17:28] LABS: Prostate Specific Antigen Dx 2.13 ng/mL (<=4.00)
== END 2024-10-21 16:22 | disposition home or self-care (01) ==
LOC: LAB 16:23
PROVIDERS: PCP Nurse Practitioner; Visit Provider Urology
DX: C61 Malignant neoplasm of prostate (principal)
CPT/HCPCS: 36415; 84153

== ENCOUNTER 2025-04-11 06:58 | Outpatient (OUT) | payer BC, SELFPAY ==
--- OUTSIDE RECORDS SUMMARY | 2025-04-11 07:03 | XMS_ITS | CCD ---
Author Organization [facility] Care Team Providers Care Insole And Outsole Splitter Name Role Phone PHYSICIAN, DEFAULT Unavailable Unavailable PHYSICIAN, DEFAULT Unavailable Unavailable AICHHOLZ, PARK J. Referring Unavailable AICHHOLZ, PARK J. Primary Care Unavailable AICHSILVIO, PARK J Primary Care Physician [phone] ANAHI Jackson, DR NGUYỄN Consulting Unavailable BRIGGS ., DR NGUYỄN Admitting Unavailable BRIGGS ., DR NGUYỄN Attending Unavailable AICHHOLZ, ORACLE ANALYST PARK Primary Care Unavailable MISC, DR AYERS Consulting Unavailable MISC, DR AYERS Admitting Unavailable MISC, DR AYERS Attending Unavailable AICHHOLZ, ORACLE ANALYST PARK Primary Care Unavailable AICHHOLZ, ORACLE ANALYST PARK Consulting Unavailable AICHHOLZ, ORACLE ANALYST PARK Primary Care Unavailable BRIGGS ., DR NGUYỄN Admitting Unavailable BRIGGS ., DR NGUYỄN Attending Unavailable ZIEBER, DR CASSIDY Ross Consulting Unavailable ELI DALAL Attending Unavailable ELI DALAL Admitting Unavailable AICHHOLZ, ORACLE ANALYST PARK Primary Care Unavailable JENNIFER DRAKE Consulting Unavailable CAMILLE .DEANNE Consulting UnavailISACC Sidhu Admitting Unavailable ISACC BEJARANO Attending Unavailable AICHHOLZ, ORACLE ANALYST PARK Primary Care Unavailable IASCC BEJARANO Consulting Unavailable AICHHOLZ, ORACLE ANALYST PARK Primary Care Unavailable NILL ., DR MCALLISTER Admitting Unavailable NILL ., DR MCALLISTER Attending Unavailable NILL ., DR MCALLISTER Consulting Unavailable AICHHOLZ, ORACLE ANALYST PARK Primary Care Unavailable NILL ., DR MCALLISTER Admitting Unavailable NILL ., DR MCALLISTER Attending Unavailable AGUBJOHN, GRACE Consulting Unavailable JUAN ORO Consulting Unavailable AICHHOLZ, ORACLE ANALYST PARK Consulting Unavailable AICHHOLZ, ORACLE ANALYST PARK Primary Care Unavailable AICHHOLZ, ORACLE ANALYST PARK Admitting Unavailable AICHHOLZ, ORACLE ANALYST PARK Attending Unavailable AICHHOLZ, ORACLE ANALYST PARK Consulting Unavailable AICHHOLZ, ORACLE ANALYST PARK Admitting Unavailable AICHHOLZ, ORACLE ANALYST PARK Attending Unavailable AICHHOLZ, ORACLE ANALYST PARK Primary Care Unavailable Kenny Hartley MD Primary Care Provider [phone] [facility] Attending Unavailable TATIANAHPARK ANGUIANO Referring Unavailable AICHPARK ANGUIANO J Primary Care Unavailable Aichholz COMMUNITY COORDINATOR, Park Unavailable Demla BRIGGS Attending Unavailable Delma BRIGGS Attending Unavailable Aichholz [facility], Park Banuelos Primary Care Provider Aichholmichelle [facility], [place] Banuelos Primary Care Provider Aicholmichelle [facility], Park Banuelos Primary Care Provider VIJAY ATKINS Attending Unavailable VIJAY ATKINS Referring Unavailable PARESH, PARK Attending Unavailable SARBJITHOLPARK Martinez Attending Unavailable LITO GANNON Attending Unavailable AICHHOLZ, PARK Referring Unavailable AICHHOLMichelle, PARK Attending Unavailable PARK YODER Attending Unavailable Medications Current Medications Medication Drug Class(es) Dates Sig (Normalized) Sig (Original) aspirin 81 mg delayed release oral tablet (20 sources) Platelet Aggregation Inhibitor, Nonsteroidal Anti-inflammatory Drug Start: 02-06-2020 take 1 tablet by mouth once daily aspirin 81 mg Take 1 tablet (81 mg total) by mouth daily. 90 tablet 3 02/06/2020 Active Start: 10-20-2019 aspirin 81 mg, Refills(s) 0 Start Date: 10/20/19 Status: Ordered atorvastatin 20 mg oral tablet (20 sources) HMG-CoA Reductase Inhibitor Start: 06-08-2024 take 1 tablet by mouth in the morning atorvastatin (LIPITOR) 20 mg tablet Take 1 tablet (20 mg total) by mouth in the morning. 90 tablet 3 06/08/2024 Active Start: 04-27-2020 End: 06-07-2024 take 1 tablet by mouth in the morning atorvastatin (Lipitor) 40 MG tablet Take 1 tablet by mouth in the morning. 08/06/2023 Active calcium carb/vitamin D3/vit K1 (CALCIUM SOFT CHEW ORAL) (8 sources) take 250 mg by mouth once daily calcium carb/vitamin D3/vit K1 (CALCIUM SOFT CHEW ORAL) Take 250 mg by mouth daily. Active calcium carbonate 500 mg chewable tablet (7 sources) Start: 12-06-2021 calcium carbonate 500 mg Chew Tab 500 mg = 1 tab(s), Chewed, Daily, Refills(s) 0 Start Date: 12/06/21 Status: Ordered Start: 12-06-2021 calcium carbon ate 500 mg Chew Tab 500 mg = 1 tab(s), Chewed, Daily, Refills(s) 0 Start Date: 12/06/21 Status: Ordered Cholecalciferol (11 sources) Vitamin D Cholecalciferol (VITAMIN D3 GUMMIES ADULT PO) Take by mouth 4 (four) times a day Active dutasteride 0.5 mg oral capsule (20 sources) 5-alpha Reductase Inhibitor Start: 11-04-19 End: 10-30-19 24 take 1 capsule by mouth in the morning dutasteride (Avodart) 0.5 MG capsule Take 1 capsule by mouth in the morning. 09/08/2023 Active ergocalciferol 1.25 mg oral capsule (7 sources) Provitamin D2 Compound Start: 11-14-19 take 1 capsule by mouth every week ergocalciferol (Vitamin D2) 1.25 MG (57489 UT) capsule Indications: Other specified abnormal findings of blood chemistry Take 1 capsule by mouth once a week 12 capsule 1 11/14/2024 Active Start: 06-01-2024 take 1 capsule by mo uth every week ergocalciferol (Vitamin D2) 1.25 MG (65664 UT) capsule Take 50,000 Units by mouth 1 (one) time per week 06/01/2024 Active ferrous sulfate 325 mg oral tablet (12 sources) take 1 tablet by mouth in the morning ferrous sulfate 325 (65 Fe) MG tablet Take 325 mg by mouth in the morning and 325 mg before bedtime. Active fluticasone propionate 0.05 mg/actuat metered dose nasal spray (15 sources) Corticosteroid Start: 03-03-20 23 take 2 spray(s) nasal route in the morning fluticasone (Flonase) 50 MCG/ACT nasal spray Administer 2 sprays into each nostril in the morning. 03/03/2023 Active Iron Chews (7 sources) Start: 12-07-19 22 Iron Chews 1, Chewed, Daily, Refills(s) 0 Start Date: 12/06/21 Status: Ordered IRON, FERROUS SULFATE, ORAL (8 sources) IRON, FERROUS SULFATE, ORAL Take 30 mg by mouth. 2 tablets daily-chew Active lisinopril 5 mg oral tablet (20 sources) Angiotensin Converting Enzyme Inhibitor Start: 12-07-19 22 End: 05-13-20 24 take 1 tablet by mouth in the morning lisinopril 5 MG tablet Take 1 tablet by mouth in the morning. 08/06/2023 Active 24 hr metoprolol succinate 25 mg extended release oral tablet (20 sources) beta-Adrenergic [place] Start: 07-09-20 23 End: 05-20-20 24 take 1 tablet by mouth every twenty-four hours in the morning metoprolol succinate XL (Toprol-XL) 25 MG 24 hr tablet Take 1 tablet by mouth in the morning. 07/09/2023 Active Start: 10-24-2019 take 1 tablet by brissa th once daily metoprolol 25 mg ER Tab 25 mg = 1 tab(s), Oral, Daily Start Date: 10/24/19 Status: Ordered Multi Vitamin+ (7 sources) Start: 10-24-2019 Multi Vitamin+ Start Date: 10/24/19 Status: Ordered Multiple Vitamin (multivitamin) tablet (15 sources) take 1 tablet by mouth in the morning Multiple Vitamin (multivitamin) tablet Take 1 tablet by mouth in the morning. Active take 1 tablet by mouth in the mo rning Multiple Vitamin (multivitamin) tablet Take 1 tablet by mouth in the morning. 0 Active multivitamin (THERAGRAN) tablet (8 sources) take 1 tablet by brissa th in the morning multivitamin (THERAGRAN) tablet Take 1 tablet by mouth in the morning. Active Completed/Discontinued Medications Medication Drug Class(es) Dates Sig (Normalized) Sig (Original) cetirizine hydrochloride 10 mg oral tablet (11 sources) Histamine-1 Receptor Antagonist Start: 03-03-2023 End: 08-18-2024 take 1 tablet by mouth in the morning cetirizine (ZyrTEC) 10 MG tablet Take 1 tablet by mouth in the morning. 03/03/2023 08/18/2024 Discontinued (Therapy completed) ciprofloxacin 500 mg oral tablet (2 sources) Quinolone Antimicrobial Start: 10-13-2022 take 1 tablet by mouth once daily Cipro 500 mg Tab 500 mg = 1 tab(s), Oral, Daily, Take 1 tablet the day before the procedure and 1 tablet after the procedure, # 2 tab(s), Refills(s) 0, Pharmacy: [id number], 176, cm, 05/19/22 16:10:00 EDT, Height/Length Dosing, 115, kg, 05/19/22 16:10:00 ED... Start Date: 10/13/22 Status: Ordered Problems Active Problems Problem Classification Problem Date Documented Date Episodic/Chronic Cancer of prostate (20 sources) Malignant tumor of prostate; Translations: [Malignant neoplasm of prostate] Onset: 2 11-30-2020 Chronic Cardiac dysrhythmias (20 sources) Atrial flutter; Translations: [Nonsustained ventricular tachycardia ] Onset: 7 Resolved: 4 12-06-2021 Chronic Coagulation and hemorrhagic disorders (14 sources) Thrombocytopenic disorder; Translations: [Thrombocytopenia, unspecified] Onset: 4 05-25-2024 Chronic Conduction disorders (20 sources) Right bundle branch block; Translations: [Unspecified right bundle-branch block] Onset: 8 12-06-2021 Chronic Congestive heart failure; nonhypertensive (20 sources) Chronic systolic heart failure; Translations: [Chronic systolic (congestive) heart failure] Onset: 7 12-06-2021 Chronic Deficiency and other anemia (11 sources) Anemia 12-06-2021 Episodic Disorders of lipid metabolism (19 sources) Hyperlipidemia, unspecified; Translations: [Mixed hyperlipidemia] Onset: 2 11-04-2023 Chronic Essential hypertension (20 sources) Hypertensive disorder; Translations: [Essential hypertension] Onset: 2 10-20-2019 Chronic Gastritis and duodenitis (1 source) Unspecified chronic gastritis without bleeding; Translations: [UNS CHRONIC GASTRITIS W/O BLEEDING] Onset: 2 Chronic Gastroduodenal ulcer (except hemorrhage) (1 source) Gastric ulcer, unspecified as acute or chronic, without hemorrhage or perforation; Translations: [GASTR ULCR UNS AC/CHRN W/O HEM/PERF] Onset: 2 Chronic Gastroduodenal ulcer (except hemorrhage) (12 sources) Acute gastric ulcer without hemorrhage AND without perforation; Translations: [Acute gastric ulcer without hemorrhage or perforation] Onset: 2 Episodic Genitourinary symptoms and ill-defined conditions (13 sources) Blood in urine; Translations: [Gross hematuria] Onset: 2 Episodic Heart valve disorders (7 sources) Heart murmur 12-06-2021 Episodic Hyperplasia of prostate (18 sources) Benign prostatic hypertrophy with outflow obstruction; Translations: [Benign prostatic hyperplasia with lower urinary tract symptoms] Onset: 2 11-30-2020 Chronic Hypertension with complications and secondary hypertension (1 source) Hypertensive heart disease with heart failure; Translations: [HTN HEART DISEASE W/HEART FAIL] Onset: 2 Chronic Inflammatory conditions of male genital organs (13 sources) Chronic prostatitis; Translations: [Chronic prostatitis] Onset: 2 10-24-2019 Chronic Nutritional deficiencies (18 sources) Vitamin D deficiency; Translations: [Vitamin D deficiency, unspecified] Onset: 4 04-05-2024 Chronic Other aftercare (1 source) shelter (current) use of aspirin; Translations: [MCFP CURRENT USE OF ASPIRIN] Onset: 2 Episodic Other aftercare (1 source) Other ferry terminal agent (current) drug therapy; Translations: [OTH FILTRATION PLANT OPERATOR CURRENT DRUG THERAPY] Onset: 2 Episodic Other circulatory disease (1 source) Personal history of other diseases of the circulatory system; Translations: [Personal history of other diseases of the circulatory system] Onset: 4 Episodic Other diseases of kidney and ureters (2 sources) Secondary hyperparathyroidism; Translations: [Secondary hyperparathyroidism of renal origin] 11-29-2024 Chronic Other diseases of kidney and ureters (4 sources) Acquired renal cyst without neoplastic change; Translations: [Cyst of kidney, acquired] Onset: 3 Episodic Other diseases of kidney and ureters (5 sources) Cyst of kidney 11-04-2022 Episodic Other diseases of veins and lymphatics (8 sources) Venous insufficiency of leg 12-06-2021 Episodic Other endocrine disorders (16 sources) Hyperparathyroidism; Translations: [Hyperparathyroidism, unspecified] Onset: 4 05-25-2024 Chronic Other nervous system disorders (12 sources) Neuropathy; Translations: [Polyneuropathy, unspecified] Onset: 4 05-02-2024 Chronic Other nutritional; endocrine; and metabolic disorders (20 sources) Body mass index 30+ - obesity; Translations: [Body mass index (BMI) 37.0-37.9, adult] Onset: 4 12-06-2021 Chronic Other nutritional; endocrine; and metabolic disorders (5 sources) Obese class II; Translations: [Body mass index (BMI) 36.0-36.9, adult] Onset: 2 Chronic Other nutritional; endocrine; and metabolic disorders (16 sources) Hypocalcemia; Translations: [Hypocalcemia] Onset: 4 03-30-2024 Chronic Catherine-; endo-; and myocarditis; cardiomyopathy (except that caused by tuberculosis or sexually transmitted disease) (20 sources) Cardiomyopathy; Translations: [Other cardiomyopathies] Onset: 7 12-06-2021 Chronic Pulmonary heart disease (1 source) Pulmonary hypertension, unspecified; Translations: [PULMONARY HYPERTENSION UNSPECIFIED] Onset: 2 Chronic Residual codes; unclassified (1 source) Other specified postprocedural states; Translations: [Other specified postprocedural states] Onset: 4 Episodic Residual codes; unclassified (1 source) Tobacco user 10-24-2024 Episodic Screening and history of mental health and substance abuse codes (1 source) Personal history of nicotine dependence; Translations: [PERSONAL HISTORY OF NICOTINE DEPEND] Onset: 2 Episodic Spondylosis; intervertebral disc disorders; other back problems (20 sources) Degeneration of cervical intervertebral disc; Translations: [Other cervical disc degeneration, unspecified cervical region] Onset: 4 02-18-2024 Chronic Unclassified (8 sources) Severe pulmonary hypertension 12-06-2021 Unclassified (4 sources) History of SARS-CoV-2 Onset: 2 03-12-2023 Unclassified (1 source) Other ventricular tachycardia; Translations: [Other ventricular tachycardia] Onset: 7 Past or Other Problems Problem Classification Problem Date Documented Da te Episodic/Chronic Acute and unspecified renal failure (12 sources) Acute renal failure syndrome; Translations: [Acute kidney failure, unspecified] Onset: 01-15-2014 03-12-2023 Episodic Calculus of urinary tract (20 sources) History of calculus of kidney; Translations: [Kidney stone] Onset: 01-15-2014 10-24-2019 Episodic Complications of surgical procedures or medical care (10 sources) Postoperative complication; Translations: [Other complications of other bariatric procedure] Onset: 12-24-2021 Episodic Deficiency and other anemia (20 sources) Iron deficiency anemia; Translations: [Other iron deficiency anemias] Onset: 01-01-2022 Episodic Deficiency and other anemia (5 sources) Iron deficiency anemia, unspecified; Translations: [IRON DEFICIENCY ANEMIA UNSPECIFIED] Onset: 12-18-2021 Episodic Fluid and electrolyte disorders (12 sources) Hypokalemia; Translations: [Hypokalemia] Onset: 01-15-2014 03-12-2023 Episodic Malaise and fatigue (14 sources) Asthenia; Translations: [Weakness] Onset: 02-18-2024 02-18-2024 Episodic Other diseases of kidney and ureters (6 sources) Urinary tract obstruction; Translations: [Other obstructive and reflux uropathy] Onset: 05-19-2022 Episodic Other gastrointestinal disorders (1 source) Bariatric surgery status; Translations: [BARIATRIC SURGERY STATUS] Onset: 12-24-2021 Episodic Other gastrointestinal disorders (18 sources) History of bariatric surgical procedure; Translations: [Bariatric surgery status] Onset: 11-04-2023 11-04-2023 Episodic Other lower respiratory disease (8 sources) Dyspnea; Translations: [Shortness of breath] Onset: 05-19-2022 05-19-2022 Episodic Other nervous system disorders (12 sources) Paresthesia of foot ; Translations: [Paresthesia of skin] Onset: 02-18-2024 02-18-2024 Episodic Other screening for suspected conditions (not mental disorders or infectious disease) (20 sources) Other specified abnormal findings of blood chemistry; Translations: [Other abnormal blood chemistry] Onset: 03-25-2017 Resolved: 05-25-2024 02-18-2024 Episodic Residual codes; unclassified (18 sources) H/O cardiac surgery; Translations: [Other specified postprocedural states] Onset: 04-27-2024 05-02-2024 Episodic Urinary tract infections (13 sources) Urinary tract infection, site not specified; Translations: [Acute cystitis] Onset: 05-01-2022 Resolved: 05-25-2024 05-25-2024 Episodic Results Test Name Value Interpretation Reference Range Facility Urology Office/Clinic Noteon 10-24-2024 Urology Office/Clinic Note Urology Office/Clinic Note Chief Complaint 1 year follow up HPI Staff 68yr old male pt here for 1yr f/u with PSA. S/p TURP done 03/22/20, TP bx 11/14/21, Cysto and FISH/Cytology 11/04/22 Previous Dx: prostate cancer ACTIVE SURVEILLANCE, BPH with urinary obstruction, gross hematuria, chronic prostatitis, kidney stones, renal cyst *dutasteride 0.5mg qd PSA: 08/30/20 - 2.75 11/29/20 - 3.75 05/16/22 - 3.63 11/21/22 - 2.36 (4.72) 10/15/23 - 1.87 (3.74) 10/21/24- 2.13 Dysuria: denies Incomplete bladder emptying: denies Hematuria: denies visible blood Frequency: once every 2 hours Urgency: denies Nocturia: sometimes one time da night Stream: denies straining, has a steady stream Leaking: denies Post void dripping: denies Wearing pads/ Depends: denies Urge incontinence: denies Stress incontinence: denies Incontinence without Sensory Awareness: denies Abdominal pain: denies Flank pain: denies Sexual complaints: _ History of Present Illness Tests reviewed: reviewed UA, PSA I have reviewed the previous health record information and history for this patient from Dr. Briggs. I have reviewed and verified the staff HPI to be accurate for this encounter. Review of Systems PHQ Score Initial Depression Screen Score: 0 SCORE ROS - Provider Constitutional: denies weight loss, [...] HPI. Physical Exam Vitals & Measurements HR: 56(Peripheral) RR: 16 BP: 94/60 HT: 69 in HT: 176 cm WT: 107 kg WT: 235.894 lb BMI: 34.54 General Appearance: alert, no distress, well nourished, well developed male. Prostate: normal prostate, estimated weight 40 gms, no hard nodule observed. Assessment/Plan 1. Prostate cancer (C61: Malignant neoplasm of prostate) ACTIVE SURVEILLANCE. PSA: 08/30/20 - 2.75 11/29/20 - 3.75 05/16/22 - 3.63 11/21/22 - 2.36 (4.72) 10/15/23 - 1.87 (3.74) 10/21/24 - 2.13 (4.26) S/p TURP 03/22/20 - GS 6(3+3) in 2 of 150 prostatic chips. S/p TP bx 11/14/21 - negative, chronic inflammation. MARYLOU: ~40g, no nodules PSA increased from prior. Likely secondary to prostatitis. Will cont to monitor. -F/u in 1 yr w/ PSA 2. BPH with urinary obstruction (N40.1: Benign prostatic hyperplasia with lower urinary tract symptoms) S/p TURP 03/22/20. Taking Dutasteride 0.5mg qd. Good, steady stream. Seldom nocturia. Feels he empties completely. No bother with urination. -Cont Dutasteride wo changes. Pt to call for refills. -Cont sx monitoring 3. Chronic prostatitis (N41.1: Chronic prostatitis) UA today shows trace-intact blood, trace leuks, and positive nitrites. Denies gross hematuria. Denies pain/burning with urination. Not experiencing odorous urine. Given pt is completely asx, do not recommend treatment. States he drinks about a gallon of water per day. -Cont increased water intake -Cont sx monitoring 4. Kidney stones (N20.0: Calculus of kidney) CT AP wo con 04/30/22 - 2 nonobstructing stones within left kidney, largest is 4 mm. No ureteral stones. No issues with stones. Has not updated imaging since CT was done. Recommended pt to do so. Pt willing to proceed. -KUB in 1 yr -Cont increased water intake 5. Renal cyst (N28.1: Cyst of kidney, acquired) CT AP wo con 04/30/22 - small cyst within right and left kidney. Suspected benign cysts. -Simple cysts do not require monitoring Follow-up With When Contact Information Delma BRIGGS MD, [facility] [address] [place] [address] [phone] Additional Instructions: 1 yr w/ PSA and KUB Patient Education Prostatitis I, Shala Soares, personally scribed for Dr. Briggs on 10/24/2024 17:15:57. . Documentation recorded by the scribe, Shala Soares, accurately reflects the services(s) I performed and decisions made by me. Authenticated by Dr. Briggs on 10/24/2024 17:17:24. Problem List/Past Medical History Ongoing Acute gastric [...] ventricular complexes Murmur Non-ischemic cardiomyopathy Non-sustained ventricular tachycar (more content not included)... Normal [facility] Comment on above: Result Comment: Elec tronically Signed By: Delma BRIGGS MD\.br\Date and Time Signed: 10/24/24 17:17 EST\.br\Electronically Co-Signed By: Shala Soares\.br\Date and Time Co-Signed: 10/24/24 17:16 EST MHPT PSA, DIAGNOSTICon 10-21 PROSTATE SPECIFIC ANTIGEN DX 2.13 ng/mL NINF - 4.00 ng/mL [facility] Healthcar e ALL CBC WITH AUTO DIFFon BASOPHILS ABSOLUTE AUTO 0.1 [facility] Basophils/100 WBC (Bld) 0.9 % 0.2 - 2.0 % [facility] Eosinophils/100 WBC (Bld) 3.3 % 0.9 - 7.0 % [facility] Erythrocyte distribution width (RBC) [Ratio] 14.8 % 11.0 - 15.0 % [facility] Hematocrit (Bld) [Volume fraction] 38.5 % Low 42.0 - 54.0 % [facility] Healthcar e Hemoglobin (Bld) [Mass/Vol] 11.6 g/dL Low 14.0 - 18.0 g/dL [facility] IMMATURE GRANULOCYTES ABS AUTO 0.01 [facility] Immature granulocytes/100 WBC (Bld) 0.2 % 0.0 - 0.5 % [facility] Interpretation and review of laboratory results Abnormal [facility] LYMPHOCYTES ABSOLUTE AUTO 1.9 [facility] Lymphocytes/100 WBC (Bld) 29.1 % 20.5 - 60.0 % [facility] MCH (RBC) [Entitic mass] 31.5 pg 25.9 - 34.0 pg [facility] MCHC (RBC) [Mass/Vol] 30.1 g/dL 29.9 - 35.2 g/dL [facility] MCV (RBC) [Entitic vol] 104.6 fL High 80.0 - 94.0 fL [facility] MONOCYTES ABSOLUTE AUTO 0.4 [facility] Monocytes/100 WBC (Bld) 6.9 % 1.7 - 12.0 % [facility] NEUTROPHILS ABSOLUTE AUTO 3.8 [facility] Neutrophils/100 WBC (Bld) 59.6 % 43.0 - 75.0 % [facility] Platelet mean volume (Bld) [Entitic vol] 10.6 fL 9.5 - 13.[address] [facility] # 0.2 [facility] TB PLT 140 Low [facility] Healthcar e TB RBC 3.68 Low [facility] TB WBC 6.4 [facility] ALL LIPID PROFILE (FASTING)o n 06-07-2024 [facility] Comment on above: 3.3 - 4.4 LOW RISK 4.4 - 7.1 AVERAGE RISK 7.1 - 11.0 MODERATE RISK >11.0 HIGH RISK Cholesterol [Mass/Vol] 68 mg/dL NINF - 200 mg/dL [facility] Cholesterol in HDL [Mass/Vol] 47 mg/dL 40 - 60 mg/dL [facility] Comment on above: > or =60 mg/dl - LOW CARDIOVASCULAR RISK <40 mg/dl - HIGH CARDIOVASCULAR RISK Magnesium [Mass/Vol] 13.8 mg/dL [facility] Comment on above: <100 mg/dl OPTIMAL 100-129 mg/dl NEAR OR ABOVE OPTIMAL 130-159 mg/dl BORDERLINE HIGH 160-189 mg/dl HIGH >190 mg/dl VERY HIGH Magnesium [Mass/Vol] 7.2 mg/dL [facility] Triglyceride [Mass/Vol] 36 mg/dL NINF - 150 mg/dL [facility] Healthcar e ER URINE PROFILEon 2 Bilirubin Ql (U) Negative Normal NEGATIVE [facility] Comment on above: Performed By: #### U MICRO, ERUR #### [facility] [address] [place] [address] Dr. Santhosh Francois Clarity (U) CLEAR Normal CLEAR [facility] Comment on above: Performed By: #### U MICRO, ERUR #### [facility] [address] [place] [address] Dr. Santhosh Francois Color (U) LT. YELLOW Normal YELLOW [facility] Comment on above: Performed By: #### U MICRO, ERUR #### [facility] [address] [place] [address] Dr. Santhosh Francois ERUAHD A micrscopic examination will be performed if indicated. Normal [facility] Comment on above: Performed By: #### U MICRO, ERUR #### [facility] [address] [address] [address] Santhosh Francois Glucose Ql (U) Negative Normal NEGATIVE [facility] Comment on above: Performed By: #### U MICRO, ERUR #### [facility] [address] [address] [address] Santhosh Francois Hemoglobin Ql (U) LARGE Abnormal NEGATIVE [facility] Comment on above: Performed By: #### U MICRO, ERUR #### [facility] [address] [address] [address] Santhosh Francois Ketones Ql (U) Negative Normal NEGATIVE [facility] Comment on above: Performed By: #### U MICRO, ERUR #### [facility] [address] [place] [address] Dr. Santhosh Francois LEUKOCYTES Negative Normal NEGATIVE [facility] Comment on above: Performed By: #### U MICRO, ERUR #### [facility] [address] [place] [address] Dr. Santhosh Francois Nitrite Ql (U) Negative Normal NEGATIVE [facility] Comment on above: Performed By: #### U MICRO, ERUR #### [facility] [address] [place] [address] Dr. Santhosh Francois pH (U) 5.0 [pH] Normal 5-9 [facility] Comment on above: Performed By: #### U MICRO, ERUR #### [facility] [address] [place] [address] Dr. Santhosh Francois SPEC GRAVITY 1.010 Normal 1.005-<=1.025 [facility] Comment on above: Performed By: #### U MICRO, ERUR #### [facility] [address] [place] [address] Dr. Santhosh Francois UA PROTEIN TRACE Normal NEGATIVE/ TRACE [facility] Comment on above: Performed By: #### U MICRO, ERUR #### [facility] [address] [place] [address] Dr. Santhosh Francois UR MICRO IND INDICATED Normal [facility] Comment on above: Performed By: #### U MICRO, ERUR #### [facility] [address] [place] [address] Dr. Santhosh Francois Urobilinogen Qn (U) 0.2 {Malini'U}/dL Normal 0.2 - 1. 0 [facility] Comment on above: Performed By: #### U MICRO, ERUR #### [facility] [address] [place] [address] Dr. Santhosh Francois URINE MICROSCOPIC ONLYon BACTERIA NONE SEEN Normal NONE SEEN [facility] Comment on above: Performed By: #### C BC #### [facility] [address] [place] [address] Dr. Santhosh Francois Bacteria identified Cx Nom (U) NOT INDICATED Normal [facility] Comment on above: Performed By: #### C BC #### [facility] [address] [place] [address] Dr. Santhosh Francois CAST NONE SEEN Normal NONE SEEN [facility] Comment on above: Performed By: #### C BC #### [facility] [address] [address] [address] Santhosh Francois Crystals LM Nom (Urine sed) NONE SEEN Normal NONE SEEN [facility] Comment on above: Performed By: #### C BC #### [facility] [address] [address] [address] Santhosh Francois Epithelial cells LM Ql (Urine sed) RARE Normal NONE SEEN /RARE [facility] Comment on above: Performed By: #### C BC #### [facility] [address] [address] [address] Santhosh Francois MUCOUS NONE SEEN Normal NONE SEEN [facility] Comment on above: Performed By: #### C BC #### [facility] [address] [place] [address] Dr. Santhosh Francois RBC 10-20 Abnormal 0-2 [facility] Comment on above: Performed By: #### C BC #### [facility] [address] [place] [address] Dr. Santhosh Francois WBC NONE SEEN Normal NONE SEEN [facility] Comment on above: Performed By: #### C BC #### [facility] [address] [place] [address] Dr. Santhosh Francois LIPID PROFILEon 05-16-2022 CHOL-HDL RATIO NORM SEE BELOW Normal [facility] Comment on above: Result Comment: 3.3 - 4.4 LOW RISK 4.4 - 7.1 AVERAGE RISK 7.1 - 11.0 MODERATE RISK >11.0 HIGH RISK Performed By: #### C BC #### [facility] [address] [place] [address] Dr. Santhosh Francois Cholesterol [Mass/Vol] 58 mg/dL Normal <=200 [facility] Comment on above: Performed By: #### C BC #### [facility] [address] [place] [address] Dr. Santhosh Francois Cholesterol in HDL [Mass/Vol] 38 mg/dL Critically low 40-60 [facility] Comment on above: Performed By: #### C BC #### [facility] [address] [address] [address] Santhosh Francois Cholesterol in LDL [Mass/Vol] 14.0 mg/dL Normal [facility] Comment on above: Performed By: #### C BC #### [facility] [address] [address] [address] Santhosh Francois Cholesterol.total/Ch olesterol in HDL [Mass ratio] 1.5 {ratio} Normal [facility] Comment on above: Performed By: #### C BC #### [facility] [address] [address] [address] Santhosh Francois HDL NORMAL > or = 60 mg/dl - LOW CARDIOVASCULAR RISK <40 mg/dl - HIGH CARDIOVASCULAR RISK Normal [facility] Comment on above: Performed By: #### C BC #### [facility] [address] [place] [address] Dr. Santhosh Francois LDL CALC NORMAL SEE BELOW Normal [facility] Comment on above: Result Comment: <100 mg/dl OPTIMAL 100 - 129 mg/dl NEAR OR ABOVE OPTIMAL 130 - 159 mg/dl BORDERLINE HIGH 160 - 189 mg/dl HIGH >190 mg/dl VERY HIGH Performed By: #### C BC #### [facility] [address] [place] [address] Dr. Santhosh Francois Triglyceride [Mass/Vol] 30 mg/dL Normal <=150 [facility] Comment on above: Performed By: #### C BC #### [facility] [address] [place] [address] Dr. Santhosh Francois VLDL CALC 6.0 mg/dL Normal [facility] Comment on above: Performed By: #### C BC #### [facility] [address] [place] [address] Dr. Santhosh Francois PROF 14(COMP METB)on 022 Albumin [Mass/Vol] 3.6 g/dL Normal 3.4-5.0 [facility] Comment on above: Performed By: #### C BC #### [facility] [address] [place] [address] Dr. Santhosh Francois Albumin/Globulin [Mass ratio] 1.1 {ratio} Normal [facility] Comment on above: Performed By: #### C BC #### [facility] [address] [address] [address] Santhosh Francois ALP [Catalytic activity/Vol] 145 U/L Critically high 46-116 [facility] Comment on above: Performed By: #### C BC #### [facility] [address] [address] [address] Santhosh Francois ALT [Catalytic activity/Vol] 102 U/L Critically high 16-63 [facility] Comment on above: Performed By: #### C BC #### [facility] [address] [address] [address] Santhosh Francois Anion gap [Moles/Vol] 12.7 mmol/L Normal [facility] Comment on above: Performed By: #### C BC #### [facility] [address] [address] [address] Santhosh Francois AST [Catalytic activity/Vol] 68 U/L Critically high 15-37 [facility] Comment on above: Performed By: #### C BC #### [facility] [address] [address] [address] Santhosh Francois Bilirubin [Mass/Vol] 1.0 mg/dL Normal 0.2-1.0 [facility] Comment on above: Performed By: #### C BC #### [facility] [address] [address] [address] Santhosh Francois Calcium [Mass/Vol] 8.0 mg/dL Critically low 8.5-10.1 [facility] Comment on above: Performed By: #### C BC #### [facility] [address] [address] [address] Santhosh Franocis Chloride [Moles/Vol] 111 mmol/L Critically high 98-107 [facility] Comment on above: Performed By: #### C BC #### [facility] [address] [address] [address] Santhosh Francois CO2 [Moles/Vol] 20.6 mmol/L Critically low 21.0-32.0 [facility] Comment on above: Performed By: #### C BC #### [facility] [address] [address] [address] Santhosh Francois Creatinine [Mass/Vol] 0.96 mg/dL Normal 0.70-1.30 [facility] Comment on above: Performed By: #### C BC #### [facility] [address] [address] [address] Santhosh Francois EGFR-AF CHINESE >60 Normal >=60 [facility] Comment on above: Performed By: #### C BC #### [facility] [address] [address] [address] Santhosh Francois EGFR-NON AF CHINESE >60 Normal >=60 [facility] Comment on above: Performed By: #### C BC #### [facility] [address] [place] [address] Dr. Santhosh Francois Globulin (S) [Mass/Vol] 3.2 g/dL Normal [facility] Comment on above: Performed By: #### C BC #### [facility] [address] [place] [address] Dr. Santhosh Francois Glucose [Mass/Vol] 88 mg/dL Normal 74-106 [facility] Comment on above: Performed By: #### C BC #### [facility] [address] [place] [address] Dr. Santhosh Francois Potassium [Moles/Vol] 4.3 mmol/L Normal 3.5-5.1 [facility] Comment on above: Performed By: #### C BC #### [facility] [address] [place] [address] Dr. Santhosh Francois Protein [Mass/Vol] 6.8 g/dL Normal 6.4-8.2 [facility] Comment on above: Performed By: #### C BC #### [facility] [address] [place] [address] Dr. Santhosh Francois Sodium [Moles/Vol] 140 mmol/L Normal 136-145 [facility] Comment on above: Performed By: #### C BC #### [facility] [address] [place] [address] Dr. Santhosh Francois Urea nitrogen [Mass/Vol] 26.0 mg/dL Critically high 7.0-18.0 [facility] Comment on above: Performed By: #### C BC #### [facility] [address] [place] [address] Dr. Santhosh Francois Urea nitrogen/Creatinine [Mass ratio] 27.1 mg/mg Normal [facility] Comment on above: Performed By: #### C BC #### [facility] [address] [place] [address] Dr. Santhosh Francois CBC AUTO DIFFon 04-30-2022 BASO # 0.0 103/ul Normal 0.0-0.1 [facility] Comment on above: Performed By: #### C BC #### [facility] [address] [place] [address] Dr. Santhosh Francois Basophils/100 WBC (Bld) 0.5 % Normal 0.2-2.0 [facility] Comment on above: Performed By: #### C BC #### [facility] [address] [place] [address] Dr. Santhosh Francois EO # 0.2 103/ul Normal 0.0-0.7 [facility] Comment on above: Performed By: #### C BC #### [facility] [address] [place] [address] Dr. Santhosh Francois Eosinophils/100 WBC (Bld) 2.9 % Normal 0.9-7.0 [facility] Comment on above: Performed By: #### C BC #### [facility] [address] [place] [address] Dr. Santhosh Francois Erythrocyte distribution width (RBC) [Ratio] 14.9 % Normal 11.0-15.0 [facility] Comment on above: Performed By: #### C BC #### [facility] [address] [place] [address] Dr. Santhosh Francois Hematocrit (Bld) [Volume fraction] 39.1 % Critically low 42.0-54.0 [facility] Comment on above: Performed By: #### C BC #### [facility] [address] [place] [address] Dr. Santhosh Francois Hemoglobin (Bld) [Mass/Vol] 12.2 g/dL Critically low 14.0-18.0 [facility] Comment on above: Performed By: #### C BC #### [facility] [address] [place] [address] Dr. Santhosh Francois IG # 0.01 10e3/ul Normal 0.00-0.03 [facility] Comment on above: Performed By: #### C BC #### [facility] [address] [place] [address] Dr. Santhosh Francois IG % 0.2 % Normal 0.0-0.5 [facility] Comment on above: Performed By: #### C BC #### [facility] [address] [place] [address] Dr. Santhosh Francois LYMPH # 2.0 103/ul Normal 1.2-3.8 [facility] Comment on above: Performed By: #### C BC #### [facility] [address] [place] [address] Dr. Santhosh Francois Lymphocytes/100 WBC (Bld) 32.6 % Normal 20.5-60.0 [facility] Comment on above: Performed By: #### C BC #### [facility] [address] [place] [address] Dr. Santhosh Francois MANUAL DIFF REQ NO Normal [facility] Comment on above: Performed By: #### C BC #### [facility] [address] [place] [address] Dr. Santhosh Francois MCH (RBC) [Entitic mass] 29.9 pg Normal 25.9-34.0 [facility] Comment on above: Performed By: #### C BC #### [facility] [address] [place] [address] Dr. Santhosh Francois MCHC (RBC) [Mass/Vol] 31.2 g/dL Normal 29.9-35.2 [facility] Comment on above: Performed By: #### C BC #### [facility] [address] [place] [address] Dr. Santhosh Francois MCV (RBC) [Entitic vol] 95.8 fL Critically high 80.0-94.0 [facility] Comment on above: Performed By: #### C BC #### [facility] [address] [address] [address] Santhosh Francois MONO # 0.5 103/ul Normal 0.3-0.8 [facility] Comment on above: Performed By: #### C BC #### [facility] [address] [address] [address] Santhosh Francois Monocytes/100 WBC (Bld) 7.9 % Normal 1.7-12.0 [facility] Comment on above: Performed By: #### C BC #### [facility] [address] [place] [address] Dr. Santhosh Francois NEUT # 3.5 103/ul Normal 1.4-6.5 [facility] Comment on above: Performed By: #### C BC #### [facility] [address] [place] [address] Dr. Santhosh Francois Neutrophils/100 WBC (Bld) 55.9 % Normal 43.0-75.0 [facility] Comment on above: Performed By: #### C BC #### [facility] [address] [place] [address] Dr. Santhosh Francois Platelet mean volume (Bld) [Entitic vol] 10.6 fL Normal 9.5-13.5 [facility] Comment on above: Performed By: #### C BC #### [facility] [address] [place] [address] Dr. Santhosh Francois PLT 125 103/ul Critically low 150-450 [facility] Comment on above: Performed By: #### C BC #### [facility] [address] [place], [place] [id number] Dr. Santhosh Francois RBC 4.08 106/ul Critically low 4.70-6.10 [facility] Comment on above: Performed By: #### C BC #### [facility] [address] [place] [address] Dr. Santhosh Francois WBC 6.2 103/ul Normal 4.0-11.0 [facility] Comment on above: Performed By: #### C BC #### [facility] [address] [address] [address] ABD/PELVIS WO CONon [...] CASSIDY DILLON Date: 2022-04-30 18:05 Normal [facility] CULTURE URINEon 04-30-2022 CULTURE URINE Culture Observations: NO GROWTH. Normal [facility] Comment on above: Performed By: #### U RCX #### [facility] [address] [place] [address] Dr. Santhosh Francois ER URINE PROFILEon 2 Bilirubin Ql (U) Unable to perform testing due to color interference. Abnormal NEGATIVE [facility] Comment on above: Performed By: #### MICHELE EASONRO #### [facility] [address] [place] [address] Dr. Santhosh Francois Clarity (U) TURBID Abnormal CLEAR [facility] Comment on above: Performed By: #### MICHELE EASONRO #### [facility] [address] [place] [address] Dr. Santhosh Francois Color (U) RED Abnormal YELLOW [facility] Comment on above: Performed By: #### MICHELE EASONRO #### [facility] [address] [place] [address] Dr. Santhosh PALACIOS A micrscopic examination will be performed if indicated. Normal [facility] Comment on above: Performed By: #### MICHELE EASONRO #### [facility] [address] [place] [address] Dr. Santhosh Francois Glucose Ql (U) Unable to perform testing due to color interference. Abnormal NEGATIVE [facility] Comment on above: Performed By: #### MICHELE EASONRO #### [facility] [address] [place] [address] Dr. Santhosh Francois Hemoglobin Ql (U) Unable to perform testing due to color interference. Abnormal NEGATIVE [facility] Comment on above: Performed By: #### MICHELE EASONRO #### [facility] [address] [place] [address] Dr. Santhosh Francois Ketones Ql (U) Unable to perform testing due to color interference. Abnormal NEGATIVE [facility] Comment on above: Performed By: #### MICHELE EASONRO #### [facility] [address] [place] [address] Dr. Santhosh Francois LEUKOCYTES Unable to perform testing due to color interference. Abnormal NEGATIVE [facility] Comment on above: Performed By: #### MICHELE EASONRO #### [facility] [address] [place] [address] Dr. Santhosh Francois Nitrite Ql (U) Unable to perform testing due to color interference. Abnormal NEGATIVE [facility] Comment on above: Performed By: #### NICOL EASON #### [facility] [address] [place] [address] Dr. Santhosh Francois pH (U) 6.0 [pH] Normal 5-9 [facility] Comment on above: Performed By: #### NICLO EASON #### [facility] [address] [place] [address] Dr. Santhosh Francois SPEC GRAVITY 1.025 Normal 1.005-<=1.025 [facility] Comment on above: Performed By: #### NICOL EASON #### [facility] [address] [place] [address] Dr. Santhosh Francois UA PROTEIN Unable to perform testing due to color interference. Normal NEGATIVE/ TRACE [facility] Comment on above: Performed By: #### NICOL EASON #### [facility] [address] [place] [address] Dr. Santhosh Francois UR MICRO IND INDICATED Normal [facility] Comment on above: Performed By: #### NICOL EASON #### [facility] [address] [place] [address] Dr. Santhosh Francois UROBILINOGEN Unable to perform testing due to color interference. Normal 0.2 - 1.0 [facility] Comment on above: Performed By: #### NICOL EASON #### [facility] [address] [place] [address] Dr. Santhosh Francois PROF CHEM 8 (BAS METB)on Anion gap [Moles/Vol] 12.6 mmol/L Normal [facility] Comment on above: Performed By: #### B MP #### [facility] [address] [place] [address] Dr. Santhosh Francois Calcium [Mass/Vol] 7.7 mg/dL Critically low 8.5-10.1 [facility] Comment on above: Performed By: #### B MP #### [facility] [address] [address] [address] Santhosh Francois Chloride [Moles/Vol] 114 mmol/L Critically high 98-107 [facility] Comment on above: Performed By: #### B MP #### [facility] [address] [address] [address] Santhosh Francois CO2 [Moles/Vol] 21.1 mmol/L Normal 21.0-32.0 [facility] Comment on above: Performed By: #### B MP #### [facility] [address] [address] [address] Santhosh Francois Creatinine [Mass/Vol] 1.12 mg/dL Normal 0.70-1.30 [facility] Comment on above: Performed By: #### B MP #### [facility] [address] [address] [address] Santhosh Francois EGFR-AF CHINESE >60 Normal >=60 [facility] Comment on above: Performed By: #### B MP #### [facility] [address] [address] [address] Santhosh Francois EGFR-NON AF CHINESE >60 Normal >=60 [facility] Comment on above: Performed By: #### B MP #### [facility] [address] [address] [address] Santhosh Francois Glucose [Mass/Vol] 90 mg/dL Normal 74-106 [facility] Comment on above: Performed By: #### B MP #### [facility] [address] [address] [address] Santhosh Francois Potassium [Moles/Vol] 3.7 mmol/L Normal 3.5-5.1 [facility] Comment on above: Performed By: #### B MP #### [facility] [address] [address] [address] Santhosh Francois Sodium [Moles/Vol] 144 mmol/L Normal 136-145 [facility] Comment on above: Performed By: #### B MP #### [facility] [address] [address] [address] Santhosh Francois Urea nitrogen [Mass/Vol] 23.0 mg/dL Critically high 7.0-18.0 [facility] Comment on above: Performed By: #### B MP #### [facility] [address] [place] [address] Dr. Santhosh Francois Urea nitrogen/Creatinine [Mass ratio] 20.5 mg/mg Normal [facility] Comment on above: Performed By: #### B MP #### [facility] [address] [place] [address] Dr. Santhosh Francois URINE MICROSCOPIC ONLYon BACTERIA NONE SEEN Normal NONE SEEN [facility] Comment on above: Performed By: #### E RUR, UMICRO #### [facility] [address] [place] [address] Dr. Santhosh Francois Bacteria identified Cx Nom (U) NOT INDICATED Normal [facility] Comment on above: Performed By: #### E RUR, UMICRO #### [facility] [address] [place] [address] Dr. Santhosh Francois CAST NONE SEEN Normal NONE SEEN [facility] Comment on above: Performed By: #### E RUR, UMICRO #### [facility] [address] [place] [address] Dr. Santhosh Francois Crystals LM Nom (Urine sed) NONE SEEN Normal NONE SEEN [facility] Comment on above: Performed By: #### E RUR, UMICRO #### [facility] [address] [place] [address] Dr. Santhosh Francois Epithelial cells LM Ql (Urine sed) NONE SEEN Normal NONE SEEN /RARE [facility] Comment on above: Performed By: #### E RUR, UMICRO #### [facility] [address] [place] [address] Dr. Santhosh Francois MUCOUS NONE SEEN Normal NONE SEEN [facility] Comment on above: Performed By: #### E RUR, UMICRO #### [facility] [address] [place] [address] Dr. Santhosh Francois RBC (U) [#/Vol] /uL Abnormal 0-2 [facility] Comment on above: Performed By: #### E RUR, UMICRO #### [facility] [address] [address] [address] Santhosh Francois WBC 10-20 Abnormal NONE SEEN [facility] Comment on above: Performed By: #### E NICOL NAPOLES #### [facility] [address] [address] [address] Santhosh Francois CBC AUTO DIFFon 03-07-2022 BASO # 0.1 103/ul Normal 0.0-0.1 [facility] Comment on above: Performed By: #### C BC #### [facility] [address] [place] [address] Dr. Santhosh Francois Basophils/100 WBC (Bld) 0.8 % Normal 0.2-2.0 [facility] Comment on above: Performed By: #### C BC #### [facility] [address] [place] [address] Dr. Santhosh Francois EO # 0.1 103/ul Normal 0.0-0.7 [facility] Comment on above: Performed By: #### C BC #### [facility] [address] [place] [address] Dr. Santhosh Francois Eosinophils/100 WBC (Bld) 1.9 % Normal 0.9-7.0 [facility] Comment on above: Performed By: #### C BC #### [facility] [address] [place] [address] Dr. Santhosh Francois Erythrocyte distribution width (RBC) [Ratio] 16.4 % Critically high 11.0-15.0 [facility] Comment on above: Performed By: #### C BC #### [facility] [address] [place] [address] Dr. Santhosh Francois Hematocrit (Bld) [Volume fraction] 43.0 % Normal 42.0-54.0 [facility] Comment on above: Performed By: #### C BC #### [facility] [address] [place] [address] Dr. Santhosh Francois Hemoglobin (Bld) [Mass/Vol] 13.4 g/dL Critically low 14.0-18.0 [facility] Comment on above: Performed By: #### C BC #### [facility] [address] [place] [address] Dr. Santhosh Francois IG # 0.02 10e3/ul Normal 0.00-0.03 [facility] Comment on above: Performed By: #### C BC #### [facility] [address] [place] [address] Dr. Santhosh Francois IG % 0.3 % Normal 0.0-0.5 [facility] Comment on above: Performed By: #### C BC #### [facility] [address] [place] [address] Dr. Santhosh Francois LYMPH # 1.8 103/ul Normal 1.2-3.8 [facility] Comment on above: Performed By: #### C BC #### [facility] [address] [place] [address] Dr. Santhosh Francois Lymphocytes/100 WBC (Bld) 29.2 % Normal 20.5-60.0 [facility] Comment on above: Performed By: #### C BC #### [facility] [address] [place] [address] Dr. Santhosh Francois MANUAL DIFF REQ NO Normal [facility] Comment on above: Performed By: #### C BC #### [facility] [address] [place] [address] Dr. Santhosh Francois MCH (RBC) [Entitic mass] 30.5 pg Normal 25.9-34.0 [facility] Comment on above: Performed By: #### C BC #### [facility] [address] [place] [address] Dr. Santhosh Francois MCHC (RBC) [Mass/Vol] 31.2 g/dL Normal 29.9-35.2 [facility] Comment on above: Performed By: #### C BC #### [facility] [address] [place] [address] Dr. Santhosh Francois MCV (RBC) [Entitic vol] 97.9 fL Critically high 80.0-94.0 [facility] Comment on above: Performed By: #### C BC #### [facility] [address] [address] [address] Santhosh Francois MONO # 0.4 103/ul Normal 0.3-0.8 [facility] Comment on above: Performed By: #### C BC #### [facility] [address] [address] [address] Santhosh Francois Monocytes/100 WBC (Bld) 6.3 % Normal 1.7-12.0 [facility] Comment on above: Performed By: #### C BC #### [facility] [address] [address] [address] Santhosh Francois NEUT # 3.8 103/ul Normal 1.4-6.5 [facility] Comment on above: Performed By: #### C BC #### [facility] [address] [place] [address] Dr. Santhosh Francois Neutrophils/100 WBC (Bld) 61.5 % Normal 43.0-75.0 [facility] Comment on above: Performed By: #### C BC #### [facility] [address] [place] [address] Dr. Santhosh Francois Platelet mean volume (Bld) [Entitic vol] 10.5 fL Normal 9.5-13.5 [facility] Comment on above: Performed By: #### C BC #### [facility] [address] [place] [address] Dr. Santhosh Francois PLT 148 103/ul Critically low 150-450 [facility] Comment on above: Performed By: #### C BC #### [facility] [address] [place] [address] Dr. Santhosh Francois RBC 4.39 106/ul Critically low 4.70-6.10 [facility] Comment on above: Performed By: #### C BC #### [facility] [address] [place] [address] Dr. Santhosh Francois WBC 6.2 103/ul Normal 4.0-11.0 [facility] Comment on above: Performed By: #### C BC #### [facility] [address] [place] [address] Dr. Santhosh Francois IRONon 03-07-2022 Iron [Mass/Vol] 125.0 ug/dL Normal 65.0-175.0 [facility] Comment on above: Performed By: #### I JAN #### [facility] [address] [place] [address] Dr. Santhosh Francois CBC AUTO DIFFon 12-03-2021 BASO # 0.0 103/ul Normal 0.0-0.1 [facility] Comment on above: Performed By: #### C BC #### [facility] [address] [place] [address] Dr. Santhosh Francois Basophils/100 WBC (Bld) 0.7 % Normal 0.2-2.0 [facility] Comment on above: Performed By: #### C BC #### [facility] [address] [place] [address] Dr. Santhosh Francois EO # 0.2 103/ul Normal 0.0-0.7 [facility] Comment on above: Performed By: #### C BC #### [facility] [address] [place] [address] Dr. Santhosh Francois Eosinophils/100 WBC (Bld) 3.1 % Normal 0.9-7.0 [facility] Comment on above: Performed By: #### C BC #### [facility] [address] [place] [address] Dr. Santhosh Francois Hematocrit (Bld) [Volume fraction] 40.4 % Critically low 42.0-54.0 [facility] Comment on above: Performed By: #### C BC #### [facility] [address] [place] [address] Dr. Santhosh Francois Hemoglobin (Bld) [Mass/Vol] 11.5 g/dL Critically low 14.0-18.0 [facility] Comment on above: Performed By: #### C BC #### [facility] [address] [place] [address] Dr. Santhosh Francois IG # 0.01 10e3/ul Normal 0.00-0.03 [facility] Comment on above: Performed By: #### C BC #### [facility] [address] [place] [address] Dr. Santhosh Francois IG % 0.2 % Normal 0.0-0.5 [facility] Comment on above: Performed By: #### C BC #### [facility] [address] [place] [address] Dr. Santhosh Francois LYMPH # 2.0 103/ul Normal 1.2-3.8 [facility] Comment on above: Performed By: #### C BC #### [facility] [address] [place] [address] Dr. Santhosh Francois Lymphocytes/100 WBC (Bld) 33.9 % Normal 20.5-60.0 [facility] Comment on above: Performed By: #### C BC #### [facility] [address] [place] [address] Dr. Santhosh Francois MANUAL DIFF REQ NO Normal [facility] Comment on above: Performed By: #### C BC #### [facility] [address] [place] [address] Dr. Santhosh Francois MCH (RBC) [Entitic mass] 24.1 pg Critically low 25.9-34.0 [facility] Comment on above: Performed By: #### C BC #### [facility] [address] [place] [address] Dr. Santhosh Frnacois MCHC (RBC) [Mass/Vol] 28.5 g/dL Critically low 29.9-35.2 [facility] Comment on above: Performed By: #### C BC #### [facility] [address] [place] [address] Dr. Santhosh Francois MCV (RBC) [Entitic vol] 84.5 fL Normal 80.0-94.0 [facility] Comment on above: Performed By: #### C BC #### [facility] [address] [place] [address] Dr. Santhosh Francois MONO # 0.4 103/ul Normal 0.3-0.8 [facility] Comment on above: Performed By: #### C BC #### [facility] [address] [place] [address] Dr. Santhosh Francois Monocytes/100 WBC (Bld) 7.7 % Normal 1.7-12.0 [facility] Comment on above: Performed By: #### C BC #### [facility] [address] [place] [address] Dr. Santhosh Francois NEUT # 3.1 103/ul Normal 1.4-6.5 [facility] Comment on above: Performed By: #### C BC #### [facility] [address] [place] [address] Dr. Santhosh Francois Neutrophils/100 WBC (Bld) 54.4 % Normal 43.0-75.0 [facility] Comment on above: Performed By: #### C BC #### [facility] [address] [place] [address] Dr. Santhosh Francois Platelet mean volume (Bld) [Entitic vol] 10.0 fL Normal 9.5-13.5 [facility] Comment on above: Performed By: #### C BC #### [facility] [address] [place] [address] Dr. Santhosh Francois PLT 191 103/ul Normal 150-450 [facility] Comment on above: Performed By: #### C BC #### [facility] [address] [place] [address] Dr. Santhosh Francois RBC 4.78 106/ul Normal 4.70-6.10 [facility] Comment on above: Performed By: #### C BC #### [facility] [address] [place] [address] Dr. Santhosh Francois WBC 5.8 103/ul Normal 4.0-11.0 [facility] Comment on above: Performed By: #### C BC #### [facility] [address] [place] [address] Dr. Santhosh Francois MR prostate wo/w conon 09-17 MR prostate wo/w con [facility] [place] [address] MRI Report Signed Patient: Miki Benitez MR#: [id number] : 1955 Acct:[id number] Age/Sex: 65 / M ADM Date: 09/16/21 Loc: MR Room: Type: [facility] Attending Dr: Delma Briggs MD Ordering Provider: Delma Briggs MD Date of Service: 09/16/21 MR/MR prostate wo/w con: ELEVATED PSA Copies to: Delma Briggs MD MRI OF THE PROSTATE GLAND [...] AM COT by: Tomy Garza MD Diplomate, [place] Report Completed: Sep 17, 2021 10:46:46 AM COT This transmission is proprietary, privileged and confidential. It is intended to be communication only for the use of the addressee; access to this message by anyone else is unaut Transcribed By: 09/17/21 1348 Dictated By: NON STAFF 09/17/21 1046 Signed By: 09/17/21 1349 [facility] Blood Urea Nitrogenon 2020 Urea nitrogen [Mass/Vol] 21 mg/dL Normal - [facility] Comment on above: Order Comment: STAT FOR MRI Performed By: #### C REAT, BUN #### [facility] [address] [place] [address] [place] Creatinineon 09-03-2021 Creatinine [Mass/Vol] 1.01 mg/dL Normal 0.64-1.27 [facility] Comment on above: Order Comment: STAT FOR MRI Performed By: #### C REAT, BUN #### [facility] [address] [place] [address] [place] Creatinine Clr Calc Pharmacy 90.06 [facility] Comment on above: Order Comment: STAT FOR MRI Result Comment: PERF ORMED BY: [place] [address] PATHOLOGIST SEASONER TONNY ZHOU M.D. Performed By: #### C REAT, BUN #### [facility] [address] [id number] [facility] Estimated GFR ( Teresita > 60 Normal [facility] Comment on above: Order Comment: STAT FOR MRI Result Comment: GFR estimated reference range: According to KDOQI guidelines, <60 ml/min/1.73m2 is sufficient to diagnose a patient with chronic kidney disease. Performed By: #### C REAT, BUN #### [facility] [address] Estimated GFR (Non- Am > 60 Normal [facility] Comment on above: Order Comment: STAT FOR MRI Performed By: #### C REAT, BUN #### [facility] [address] [id number] [facility] Ironon 04-15-2019 Iron [Mass/Vol] 22 ug/dL Low 59-158 [facility] Comment on above: Performed By: #### C P #### [facility] [address] [place] [address] [place] [address] [employer] Operator: Frank Mercado MD #### B12, FE #### [address] [address] [employer] Operator: Rainer Araujo MD Vitamin B12on 04-15-2019 Cobalamin (Vitamin B12) [Mass/Vol] 1062 pg/mL Normal 232-1245 [facility] Comment on above: Performed By: #### C P #### [facility] [address] [place] [address] [employer]: Frank Mercado MD #### B12, FE #### [facility] [address] [place] [address] [employer] Operator: Rainer Araujo MD Comp Metabolic Profon 2018 Albumin [Mass/Vol] 4.2 g/dL Normal 3.5-5.2 [facility] Comment on above: Performed By: #### C P #### [facility] [address] [place] [address] [employer] Operator: Frank Mercado MD #### B12, FE #### [address] [id number] [employer]: Rainer Araujo MD Albumin/Globulin [Mass ratio] 1.6 {ratio} Normal 1.0-2.5 [facility] Comment on above: Performed By: #### C P #### [facility] [address] [place] [address] Dr[place], [place] [id number] [employer] Operator: Frank Mercado MD #### B12, FE #### [address] [id number] [employer] Operator: Rainer Araujo MD Alkaline Phos 120 U/L Normal 40-129 [facility] Comment on above: Performed By: #### C P #### [address] [place], [place] [address] [employer] Operator: Frank Mercado MD #### B12, FE #### [address] [address] [employer] Operator: Rainer Araujo MD Bilirubin Ql (U) 0.72 mg/dL Normal 0.3-1.2 [facility] Comment on above: Performed By: #### C P #### [address] [place], [place] [address] [employer] Operator: Frank Mercado MD #### B12, FE #### [address] [address] [employer] Operator: Rainer Araujo MD Protein [Mass/Vol] 6.8 g/dL Normal 6.4-8.3 [facility] Comment on above: Performed By: #### C P #### [address] [place], [place] [id number] [employer] Operator: Frank Mercado MD #### B12, FE #### [address] [address] [employer] Operator: Rainer Araujo MD (cont.) [facility] Comment on above: Result Comment: Aver age GFR for 60-69 years old: 85 mL/min/1.73sq m Chronic Kidney Disease: <60 mL/min/1.73sq m Kidney failure: <15 mL/min/1.73sq m eGFR calculated using average adult body mass. Additional eGFR calculator available at: http://www.Squla/multiple_crcl_2012.htm Performed By: #### C P #### [facility] [address] [place], [place] [address] [employer] Operator: Frank Mercado MD #### B12, FE #### [address] [place] [address] [employer] Operator: Rainer Araujo MD ALT [Catalytic activity/Vol] 29 U/L Normal 5-41 [facility] Comment on above: Performed By: #### C P #### [address] [place], [place] [address] [employer] Operator: Frank Mercado MD #### B12, FE #### [address] [place] [address] [employer] Operator: Rainer Araujo MD Anion gap [Moles/Vol] 10 mmol/L [facility] Comment on above: Performed By: #### C P #### [facility] [address] [place] [address] [employer] Operator: Frank Mercado MD #### B12, FE #### [facility] [address] [place] [address] [employer] Operator: Rainer Araujo MD AST [Catalytic activity/Vol] 26 U/L Normal <40 [facility] Comment on above: Performed By: #### C P #### [facility] [address] [place] [address] Dr. [place], [place] [id number] [employer] Operator: Frank Mercado MD #### B12, FE #### [facility] [address] [place] [address] [employer] Operator: Rainer Araujo MD BUN/CRE Ratio 24 High 9-20 [facility] Comment on above: Performed By: #### C P #### [facility] [address] [place] [address] [employer] Operator: Frank Mercado MD #### B12, FE #### [address] [address] [employer] Operator: Rainer rAaujo MD Calcium [Mass/Vol] 8.2 mg/dL Low 8.6-10.4 [facility] Comment on above: Performed By: #### C P #### [facility] [address] [place] [address] [employer] Operator: Frank Mercado MD #### B12, FE #### [address] [address] [employer] Operator: Rainer Araujo MD Chloride [Moles/Vol] 115 mmol/L High 98-107 [facility] Comment on above: Performed By: #### C P #### [facility] [address] [place] [address] [employer] Operator: Frank Mercado MD #### B12, FE #### [facility] [address] [place] [address] [employer] Operator: Rainer Araujo MD CO2 [Moles/Vol] 17 mmol/L Low 20-31 [facility] Comment on above: Performed By: #### C P #### [facility] [address] [place] [address] [employer] Operator: Frank Mercado MD #### B12, FE #### [address] [address] [employer] Operator: Rainer Araujo MD Creatinine [Mass/Vol] 1.11 mg/dL Normal 0.70-1.20 [facility] Comment on above: Performed By: #### C P #### [facility] [address] [place], [place] [address] [employer] Operator: Frank Mercado MD #### B12, FE #### [address] [address] [employer] Operator: Rainer Araujo MD GFR, Amer >60 Normal >60 [facility] Comment on above: Performed By: #### C P #### [facility] [address] [place], [place] [address] [employer] Operator: Frank Mercado MD #### B12, FE #### [address] [address] [employer] Operator: Rainer Araujo MD GFR,non Amer >60 Normal >60 [facility] Comment on above: Performed By: #### C P #### [facility] [address] [place], [place] [phone] [employer] Operator: Frank Mercado MD #### B12, FE #### [address] [address] [employer] Operator: Rainer Araujo MD Glucose [Mass/Vol] 103 mg/dL High 70-99 [facility] Comment on above: Performed By: #### C P #### [facility] [address] [place] [address] [employer] Operator: Frank Mercado MD #### B12, FE #### [address] [address] [employer] Operator: Rainer Araujo MD Potassium [Moles/Vol] 4.1 mmol/L Normal 3.7-5.3 [facility] Comment on above: Performed By: #### C P #### [facility] [address] [place], [place] [phone] [employer] Operator: Frank Mercado MD #### B12, FE #### [address] [place], [place] [address] [employer] Operator: Rainer Araujo MD Sodium [Moles/Vol] 142 mmol/L Normal 135-144 [facility] Comment on above: Performed By: #### C P #### [facility] [address] [place] [phone] [employer] Operator: Frank Mercado MD #### B12, FE #### [address] [address] [employer] Operator: Rainer Araujo MD Staging: Normal [facility] Comment on above: Result Comment: Stag e 1: Some kidney damage normal GFR Stage 2: Mild kidney damage GFR 60-89 Stage 3: Moderate kidney damage GFR 30-59 Stage 4: Severe kidney damage GFR 15-29 Stage 5: Severe kidney damage GFR <15 ESRD - chronic treatment by dialysis or transplant Performed By: #### C P #### [address] [place], [place] [phone] [employer] Operator: Frank Mercado MD #### B12, FE #### [address] [address] [employer] Operator: Rainer Araujo MD Urea nitrogen [Mass/Vol] 27 mg/dL High 8-23 [facility] Comment on above: Performed By: #### C P #### [address] [place] [address] [employer] Operator: Frank Mercado MD #### B12, FE #### [address] [address] [employer] Operator: Rainer Araujo MD Vital Signs Date Time Vital Sign Value Performing Clinician Facility 11-29-2024 13:49-0500 Body height 180.3 cm Vijay Atkins MD Work Phone: [facility] 11-29-2024 13:49-0500 Body mass index (BMI) [Ratio] 32.5 kg/m2 Vijay Atkins MD Work Phone: [facility] 11-29-2024 13:49-0500 Body weight 105.69 kg Vijay Atkins MD Work Phone: [facility] 11-29-2024 13:49-0500 Heart rate 70 /min Vijay Atkins MD Work Phone: [facility] 11-29-2024 13:49-0500 Respiratory rate 16 /min Vijay Atkins MD Work Phone: [facility] 11-29-2024 13:49-0500 SaO2% (BldA) [Mass fraction] 94 % Vijay Atkins MD Work Phone: [facility] 10-24-2024 16:02-0500 Diastolic blood pressure 60 mm[Hg] Delma BRIGGS [facility] 10-24-2024 16:02-0500 Heart rate 56 /min Delma BRIGGS [facility] 10-24-2024 16:02-0500 Respiratory rate 16 /min Delma BRIGGS [facility] 10-24-2024 16:02-0500 Systolic blood pressure 94 mm[Hg] Delma BRIGGS [facility] 08-18-2024 16:00-0500 Body height 177.8 cm Park Yoder NP Work Phone: [facility] 08-18-2024 16:00-0500 Body mass index (BMI) [Ratio] 33.69 kg/m2 Park Yoder NP Work Phone: [facility] 08-18-2024 16:00-0500 Body temperature 98.1 [degF] Park Aichholz COMMUNITY COORDINATOR Work Phone: [facility] 08-18-2024 16:00-0500 Body weight 106.5 kg Park Aichholz COMMUNITY COORDINATOR Work Phone: [facility] 08-18-2024 16:00-0500 Diastolic blood pressure 78 mm[Hg] Park Aichholz COMMUNITY COORDINATOR Work Phone: [facility] 08-18-2024 16:00-0500 Heart rate 71 /min Park Aichholz COMMUNITY COORDINATOR Work Phone: [facility] 08-18-2024 16:00-0500 Respiratory rate 21 /min Park Aichholz COMMUNITY COORDINATOR Work Phone: [facility] 08-18-2024 16:00-0500 SaO2% (BldA) [Mass fraction] 97 % Park Aichholz COMMUNITY COORDINATOR Work Phone: [facility] 08-18-2024 16:00-0500 Systolic blood pressure 122 mm[Hg] Park Aichholz COMMUNITY COORDINATOR Work Phone: [facility] 05-25-2024 15:52-0400 Body height 177.8 cm Park Aichholz COMMUNITY COORDINATOR Work Phone: [facility] 05-25-2024 15:52-0400 Body mass index (BMI) [Ratio] 33.29 kg/m2 Park Aichholz COMMUNITY COORDINATOR Work Phone: [facility] 05-25-2024 15:52-0400 Body temperature 97.3 [degF] Park Aichholz COMMUNITY COORDINATOR Work Phone: [facility] 05-25-2024 15:52-0400 Body weight 105.23 kg Park Aichholz COMMUNITY COORDINATOR Work Phone: [facility] 05-25-2024 15:52-0400 Diastolic blood pressure 52 mm[Hg] Park Aichholz COMMUNITY COORDINATOR Work Phone: [facility] 05-25-2024 15:52-0400 Heart rate 67 /min Park Simpsontiffany COMMUNITY COORDINATOR Work Phone: [facility] 05-25-2024 15:52-0400 Respiratory rate 18 /min Parkvero Simpsonashliez COMMUNITY COORDINATOR Work Phone: [facility] 05-25-2024 15:52-0400 SaO2% (BldA) [Mass fraction] 97 % Parkvero Simpsonashliez COMMUNITY COORDINATOR Work Phone: [facility] 05-25-2024 15:52-0400 Systolic blood pressure 90 mm[Hg] Park Tatianatiffany COMMUNITY COORDINATOR Work Phone: [facility] 04-27-2024 07:57-0400 Body mass index (BMI) [Ratio] 32.36 kg/m2 Yisel Heart MD Work Phone: [facility] 04-27-2024 07:57-0400 Body weight 105.23 kg Yisel Heart MD Work Phone: [facility] 04-27-2024 07:57-0400 Diastolic blood pressure 60 mm[Hg] Yisel Heart MD Work Phone: [facility] 04-27-2024 07:57-0400 Heart rate 64 /min Yisel Heart MD Work Phone: [facility] 04-27-2024 07:57-0400 Respiratory rate 14 /min Yisel Heart MD Work Phone: [facility] 04-27-2024 07:57-0400 SaO2% (BldA) [Mass fraction] 94 % Yisel Heart MD Work Phone: [facility] 04-27-2024 07:57-0400 Systolic blood pressure 98 mm[Hg] Yisel Heart MD Work Phone: [facility] 11-04-2023 15:54-0500 Body height 177.8 cm Park Paresh COMMUNITY COORDINATOR Work Phone: [facility] 11-04-2023 15:54-0500 Body mass index (BMI) [Ratio] 34.47 kg/m2 Park Terrazassilvio COMMUNITY COORDINATOR Work Phone: [facility] 11-04-2023 15:54-0500 Body temperature 97.11 [degF] Park Terrazassilvio COMMUNITY COORDINATOR Work Phone: [facility] 11-04-2023 15:54-0500 Body weight 108.95 kg Park Terrazasnicolettez COMMUNITY COORDINATOR Work Phone: [facility] 11-04-2023 15:54-0500 Diastolic blood pressure 78 mm[Hg] Park Simpsontiffany COMMUNITY COORDINATOR Work Phone: [facility] 11-04-2023 15:54-0500 Heart rate 66 /min Park Terrazassilvio COMMUNITY COORDINATOR Work Phone: [facility] 11-04-2023 15:54-0500 Respiratory rate 18 /min Park Terrazassilvio COMMUNITY COORDINATOR Work Phone: [facility] 11-04-2023 15:54-0500 SaO2% (BldA) [Mass fraction] 97 % Park Terrazasnicolettez COMMUNITY COORDINATOR Work Phone: [facility] 11-04-2023 15:54-0500 Systolic blood pressure 118 mm[Hg] Park Terrazassilvio COMMUNITY COORDINATOR Work Phone: [facility] 10-19-2023 15:01-0500 Blood Pressure Location Delma BRIGGS [facility] 10-19-2023 15:01-0500 Diastolic blood pressure 60 mm[Hg] Delma BRIGGS [facility] 10-19-2023 15:01-0500 Heart rate 64 /min Delma BRIGGS [facility] 10-19-2023 15:01-0500 Respiratory rate 16 /min Delma BRIGGS [facility] 10-19-2023 15:01-0500 Systolic blood pressure 109 mm[Hg] Delma BRIGGS [facility] 04-13-2023 15:59-0400 Blood Pressure Location Delma BRIGGS [facility] 04-13-2023 15:59-0400 Diastolic blood pressure 80 mm[Hg] Delma BRIGGS [facility] 04-13-2023 15:59-0400 Heart rate 68 /min Delma BRIGGS [facility] 04-13-2023 15:59-0400 Respiratory rate 16 /min Delma BRIGGS [facility] 04-13-2023 15:59-0400 Systolic blood pressure 130 mm[Hg] Delma BRIGGS [facility] 11-04-2022 14:37-0500 Blood Pressure Location Delma BRIGGS [facility] 11-04-2022 14:37-0500 Diastolic blood pressure 69 mm[Hg] Delma BRIGGS [facility] 11-04-2022 14:37-0500 Heart rate 68 /min Delma BRIGGS [facility] 11-04-2022 14:37-0500 Systolic blood pressure 118 mm[Hg] Delma BRIGGS [facility] 05-19-2022 15:59-0400 Blood Pressure Location Delma BRIGGS [facility] [place] 05-19-2022 15:59-0400 Diastolic blood pressure 66 mm[Hg] Delmayann BRIGGS [facility] [place] 05-19-2022 15:59-0400 Heart rate 59 /min Delma BRIGGS [facility] [place] 05-19-2022 15:59-0400 Respiratory rate 16 /min Delma BRIGGS [facility] [place] 05-19-2022 15:59-0400 Systolic blood pressure 117 mm[Hg] Delmayann BRIGGS [facility] [place] Encounters Encounter Date Encounter Type Care Provider Facility Start: 10-23-2025 ambulatory Delma BRIGGS Facili ty: [place] Start: 11-29-2024 End: 11-29-2024 Nupur flowsheet Vijay Atkins MD Work Phone: [facility] Start: 11-29-2024 End: 11-29-2024 Nupur flowsheet Vijay Atkins MD Work Phone: [facility] Start: 11-29-2024 End: 11-29-2024 Office outpatient visit 25 minutes Vijay Atkins MD Work Phone: [facility] Comment on above: Hypocalcemia (Primar y Dx); Vitamin D deficiency; Secondary hyperparathyroidism (CMS/HCC) Start: 11-29-2024 End: 11-29-2024 ambulatory VIJAY ATKINS Not Available Start: 10-24-2024 End: 10-24-2024 ambulatory Delma BRIGGS Facility:[facility] Start: 10-24-2024 End: 10-24-2024 Patient encounter procedure Delma Ross BRIGGS [facility] [place] Start: 10-21-2024 End: 10-21-2024 Clinisync Result Encounter Generic External Data Provider [facility] External Department Unsolicited Start: 10-21-2024 End: 10-21-2024 Clinisync Result Encounter Generic External Data Provider [facility] External Department Unsolicited Start: 08-18-2024 End: 08-18-2024 ambulatory PARK YODER Not Available Start: 08-18-2024 End: 08-18-2024 Office outpatient visit 15 minutes Park Yoder NP Work Phone: [facility] Comment on above: Primary hypertension (CMS/HCC) (Primary Dx); Chronic systolic heart failure (CMS/HCC); H/O bariatric surgery; BMI 37.0-37.9, adult; Elevated liver function tests; Vitamin D deficiency; Hyperparathyroidism, unspecified (CMS/HCC); Iron deficiency anemia following bariatric surgery; Hypocalcemia Start: 08-18-2024 End: 08-18-2024 Bamboo flowsheet Park Yoder COMMUNITY COORDINATOR Work Phone: [facility] Start: 08-18-2024 End: 08-18-2024 Bamboo flowsheet Park Yoder COMMUNITY COORDINATOR Work Phone: [facility] Start: 08-17-2024 End: 08-17-2024 Clinisync Result Encounter Park Yoder COMMUNITY COORDINATOR Work Phone: [facility] External Department Unsolicited Start: 08-17-2024 End: 08-17-2024 Clinisync Result Encounter Park Yoder NP Work Phone: [facility] External Department Unsolicited Start: 07-22-2024 End: 07-22-2024 ambulatory VIJAY ATKINS Not Available Start: 06-07-2024 End: 06-07-2024 Clinisync Result Encounter Generic External Data Provider [facility] External Department Unsolicited Start: 06-07-2024 End: 06-07-2024 Clinisync Result Encounter Generic External Data Provider [facility] External Department Unsolicited Start: 06-07-2024 End: 06-08-2024 Telephone encounter Makenzie Roberson RN [facility] Comment on above: Lipitor and fasting labs Start: 05-25-2024 End: 05-25-2024 ambulatory PARK YODER Not Available Start: 05-25-2024 End: 05-25-2024 Office outpatient visit 25 minutes Park Yoder COMMUNITY COORDINATOR Work Phone: [facility] Comment on above: Weakness (Primary Dx ); Thrombocytopenia, unspecified (CMS/HCC); Hyperparathyroidism, unspecified (CMS/HCC); Other ventricular tachycardia (CMS/HCC); Elevated liver function tests; Iron deficiency anemia following bariatric surgery; Primary hypertension (CMS/HCC); Elevated parathyroid hormone; Vitamin D deficiency Start: 05-25-2024 End: 05-25-2024 Bamboo flowsheet Park Yoder COMMUNITY COORDINATOR Work Phone: [facility] Start: 05-25-2024 End: 05-25-2024 Bamboo flowsheet Park Yoder COMMUNITY COORDINATOR Work Phone: [facility] Start: 05-20-2024 End: 05-20-2024 Refill Makenzie Roberson RN [facility] Comment on above: Med Refill Start: 05-18-2024 End: 05-19-2024 Refill Karime Mcallister RN [facility] Comment on above: Med Refill Start: 05-06-2024 End: 05-13-2024 Refill Albino Morris CAKE TESTER-ORACLE ANALYST Work Phone: [facility] Comment on above: Med Refill Start: 04-27-2024 End: 04-27-2024 Office outpatient visit 15 minutes Yisel Heart MD Work Phone: [facility] Comment on above: Nonischemic cardiomy opathy (CMS-HCC) (Primary Dx); Chronic systolic heart failure (CMS-HCC); Nonsustained ventricular tachycardia (CMS-HCC); Status post ablation of ventricular arrhythmia Start: 04-27-2024 End: 04-27-2024 ambulatory YISEL HEART [facility] Start: 04-26-2024 End: 04-26-2024 Telephone encounter Ifrah Tapia CMA [facility] Start: 04-06-2024 End: 04-06-2024 ambulatory LITO GANNON Not Available Start: 03-30-2024 End: 03-30-2024 ambulatory PARK AICHHOLZ Not Available Start: 02-18-2024 End: 02-18-2024 ambulatory PARK AICHHOLZ Not Available Start: 02-15-2024 End: 02-16-2024 Refill Violeta Peacock RN [facility] Comment on above: Med Refill Start: 02-09-2024 End: 02-10-2024 Refill Berta Nieves RN [facility] Comment on above: Med Refill Start: 11-04-2023 End: 11-04-2023 Office outpatient visit 15 minutes Park Yoder COMMUNITY COORDINATOR Work Phone: [facility] Comment on above: 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); BMI 37.0-37.9, adult; Nonischemic cardiomyopathy (CMS/HCC); Primary hypertension (CMS/HCC); Chronic systolic heart failure (CMS/HCC); H/O bariatric surgery; Mixed hyperlipidemia (CMS/HCC) Start: 11-04-2023 Bamboo flowsheet Park Paresh COMMUNITY COORDINATOR Work Phone: [facility] Start: 11-04-2023 Bamboo flowsheet Park Tatianahnicolettez COMMUNITY COORDINATOR Work Phone: [facility] Start: 10-19-2023 End: 10-19-2023 Patient encounter procedure Delma BRIGGS [facility] Start: 04-13-2023 End: 04-13-2023 Patient encounter procedure Delma BRIGGS [facility] Start: 03-18-2023 End: 03-18-2023 Patient encounter procedure Delma R BRIGGS [facility] [place] Start: 11-21-2022 End: 11-22-2022 ambulatory LILIANA YODER Facility:[facility] Start: 11-04-2022 End: 11-04-2022 Patient encounter procedure Delma Ross BRIGGS [facility] Start: 09-12-2022 End: 09-12-2022 ambulatory DEANNE OBRIEN . Facility:[facility] Start: 05-19-2022 End: 05-19-2022 Patient encounter procedure [facility]ma R ANAHI [facility] Start: 05-16-2022 End: 05-17-[address] DOCTOR HOWE Facility:[facility] Start: 04-30-2022 End: 04-30-[address] CASSIDY DILLON Facility:[facility] Start: 03-07-2022 End: 03-08-2022 ambulatory LILIANA YODER Facility:[facility] Start: 01-01-2022 End: 01-01-2022 Patient encounter procedure Ary ARTEAGA [facility] [place] Start: 12-18-2021 End: 12-18-[address] ARY ARTEAGA . Facility:[facility] Start: 12-14-2021 ambulatory LILIANA YODER [facility] ity:[facility] Start: 12-03-2021 End: 12-04-2021 ambulatory LILIANA YODER Facility:[facility] Start: 11-12-2021 Patient encounter status Berta Nieves RN Abzen[facility] Work Phone: Start: 04-14-2019 End: 04-15-2019 Patient encounter procedure PARK Reyes [facility] Start: 01-28-2018 End: 01-29-2018 Ambulatory DEFAULT PHYSICIAN Facility:[facility] Procedures Date Procedure Procedure Detail Performing Clinician Start: 10-21-2024 MHPT PSA, DIAGNOSTIC Generic External Data Provider Start: 08-17-2024 ALL CBC WITH AUTO DIFF Parkvero Yoder COMMUNITY COORDINATOR Work Phone: Start: 06-07-2024 ALL LIPID PROFILE (FASTING) Generic Exte rnal Data Provider Start: 04-27-2024 Ecg routine ecg w/least 12 lds w/i&r Yisel Heart MD Work Phone: Start: 04-27-2024 Follow-up visit Follow-up YISEL HEART Start: 11-21-[address] DELMA BRIGGS . Comment on above: Performed By: #### PSAD #### [facility] [address] [place] [address] Dr. Santhosh Francois Start: 11-04-2022 Cystoscopy Delma BRIGGS Start: 05-16-[address] DELMA BRIGGS . Comment on above: Performed By: #### PSAD #### [facility] [address] [place] [address] Dr. Santhosh Francois Start: 12-18-2021 Colonoscopy Park Yoder COMMUNITY COORDINATOR Work Phone: Start: 12-18-2021 Colonoscopy Ary ARTEAGA Start: 12-18-2021 Esophagogastroduodenoscopy Ary ARTEAGA Start: 11-14-2021 MRI-US fusion guided transrectal biopsy of prostate Ary ARTEAGA Start: 03-27-2021 Transrectal biopsy of prostate using ultrasound guidance Ary ARTEAGA Start: 03-22-2020 Transurethral prostatectomy Ary ARTEAGA Start: 04-14-2019 Assay of iron PARK YODER Start: 04-14-2019 Comprehensive metabolic panel PARK JESUS Start: 04-14-2019 Cyanocobalamin vitamin b-12 PARK AICHHOL Z Start: 01-12-2017 Cystoscope, device (physical object) Ary NILL Start: 09-28-1999 Esophagogastrostomy, antesternal or antethoracic Ary NILL Appendectomy Ary NILL Cardiac catheterization Devang ael NILL Cholecystectomy Ary NILL Colonoscopy Ary NILL History of radiofreq uency ablation operation for arrhythmia Ary NILL Lithotripsy Ary NILL Comment on above: x3 Repair of umbilical hernia M ritika NILL Plan of Treatment Date Care Activity Detail Author Start: 06-16-2030 DTaP,Tdap and Td Vaccines (2 - Tdap) DTaP,Tdap and Td Vaccines (2 - Tdap) [facility] Start: 06-07-2025 End: 06-07-2025 Lipid 1996 panel - Serum or Plasma Lipid profile Lab Routine Mixed hyperlipidemia Expected: 06/07/2025 (Approximate), Expires: 06/07/2025 Fibroblast Work Phone: Comment on above: Expected: 06/07/2025 (Approximate), Expi res: 06/07/2025 Start: 05-23-2025 End: 05-23-2025 Patient encounter procedure 05/23/2025 2:00 PM EDT Office Visit [facility] [address] [place] [id number] Vijay Atkins MD [address] [place] [address] [facility] Start: 04-27-2025 Adult BMI Screening Adult BMI Screening [facility] Start: 04-27-2025 Tobacco Screening Tobacco Screening [facility] Start: 02-13-2025 End: 02-13-2025 Patient encounter procedure 02/13/2025 3:40 PM EDT Office Visit [facility] [address] [place] [address] Park Yoder, CHRISTOPHE [address] [place] [address] [facility] Start: 11-29-2024 End: 11-29-2025 25-hydroxyvitamin D3 [Mass/volume] in Serum or Plasma Vitamin D 25 hydroxy Total Lab Routine Vitamin D deficiency Expected: 11/29/2024 (Approximate), Expires: 11/29/2025 [facility] Comment on above: Expected: 11/29/2024 (Approximate), Expi res: 11/29/2025 Start: 11-29-2024 End: 11-29-2025 Magnesium [Mass/volume] in Serum or Plasma Magnesium Lab Routine Hypocalcemia Expected: 11/29/2024 (Approximate), Expires: 11/29/2025 [facility] Work Phone: Comment on above: Expected: 11/29/2024 (Approximate), Expi res: 11/29/2025 Start: 11-29-2024 End: 11-29-2025 Parathyrin.intact [Mass/volume] in Serum or Plasma PTH, intact Lab Routine Secondary hyperparathyroidism ([facility]) Expected: 11/29/2024 (Approximate), Expires: 11/29/2025 [facility] Comment on above: Expected: 11/29/2024 (Approximate), Expi res: 11/29/2025 Start: 11-29-2024 End: 11-29-2025 Renal function panel Renal function panel Lab Routine Hypocalcemia Expected: 11/29/2024 (Approximate), Expires: 11/29/2025 [facility] Comment on above: Expected: 11/29/2024 (Approximate), Expi res: 11/29/2025 Start: 11-29-2024 End: 11-29-2024 Patient encounter procedure [facility] Comment on above: Arrived Start: 11-18-2024 End: 08-18-2025 25-hydroxyvitamin D3 [Mass/volume] in Serum or Plasma Vitamin D 25 hydroxy Lab Routine H/O bariatric surgery Vitamin D deficiency Hyperparathyroidism, unspecified (CMS/HCC) Expected: 11/18/2024 (Approximate), Expires: 08/18/2025 [facility] Comment on above: Expected: 11/18/2024 (Approximate), Expi res: 08/18/2025 Start: 11-18-2024 End: 08-18-2025 CBC W Auto Differential panel - Blood CBC and differential Lab Routine Iron deficiency anemia following bariatric surgery Expected: 11/18/2024 (Approximate), Expires: 08/18/2025 [facility] Work Phone: Comment on above: Expected: 11/18/2024 (Approximate), Expi res: 08/18/2025 Start: 11-18-2024 End: 08-18-2025 Cobalamin (Vitamin B12) [Mass/volume] in Serum or Plasma Vitamin B12 Lab Routine H/O bariatric surgery Expected: 11/18/2024 (Approximate), Expires: 08/18/2025 [facility] Comment on above: Expected: 11/18/2024 (Approximate), Expi res: 08/18/2025 Start: 11-18-2024 End: 08-18-2025 Comprehensive metabolic 2000 panel - Serum or Plasma Comprehensive metabolic panel Lab Routine Hyperparathyroidism, unspecified (CMS/HCC) Expected: 11/18/2024 (Approximate), Expires: 08/18/2025 [facility] Comment on above: Expected: 11/18/2024 (Approximate), Expi res: 08/18/2025 Start: 11-18-2024 End: 08-18-2025 Iron + transferrin + TIBC Iron + transferrin + TIBC Lab Routine Iron deficiency anemia following bariatric surgery Expected: 11/18/2024 (Approximate), Expires: 08/18/2025 [facility] Comment on above: Expected: 11/18/2024 (Approximate), Expi res: 08/18/2025 Start: 11-18-2024 End: 08-18-2025 Lipid 1996 panel - Serum or Plasma Lipid panel Lab Routine Chronic systolic heart failure (CMS/HCC) Expected: 11/18/2024 (Approximate), Expires: 08/18/2025 [facility] Comment on above: Expected: 11/18/2024 (Approximate), Expi res: 08/18/2025 Start: 11-18-2024 End: 08-18-2025 Microalbumin/Creatinin e panel in random Urine Microalbumin / creatinine, urine ratio Lab Routine Primary hypertension (CMS/HCC) Expected: 11/18/2024 (Approximate), Expires: 08/18/2025 [facility] Comment on above: Expected: 11/18/2024 (Approximate), Expi res: 08/18/2025 Start: 11-18-2024 End: 08-18-2025 Parathyrin.intact [Mass/volume] in Serum or Plasma PTH, intact Lab Routine Hyperparathyroidism, unspecified (CMS/HCC) Expected: 11/18/2024 (Approximate), Expires: 08/18/2025 [facility] Comment on above: Expected: 11/18/2024 (Approximate), Expi res: 08/18/2025 Start: 11-18-2024 End: 08-18-2025 Urinalysis complete panel - Urine Urinalysis with reflex microscopic (clean catch) Lab Routine Primary hypertension ([facility]/HCC) Expected: 11/18/2024 (Approximate), Expires: 08/18/2025 [facility] Comment on above: Expected: 11/18/2024 (Approximate), Expi res: 08/18/2025 Start: 08-18-2024 End: 08-18-2024 Patient encounter procedure 08/18/2024 3:40 PM EST Office Visit [facility] [address] [place] [address] Park Yoder NP [address] [place] [address] [facility] Start: 07-28-2024 Influenza vaccination Influenza Vaccine (#1) [facility] Comment on above: Postponed from 05/29/2024 (Patient Does Not Have Time) Start: 06-02-2024 End: 06-02-2024 Patient encounter procedure 06/02/2024 8:40 AM EDT Office Visit [facility] [address] [place] [address] Lito Gannon, COMMUNITY COORDINATOR [address] [place] [address] [facility] Start: 05-29-2024 COVID-19 Vaccine () COVID-19 Vaccine () [facility] Start: 05-29-2024 Influenza vaccination [facility] Start: 05-25-2024 End: 05-25-2025 CBC W Auto Differential panel - Blood CBC and differential Lab Routine Thrombocytopenia, unspecified (CMS/HCC) Iron deficiency anemia following bariatric surgery Expected: 05/25/2024 (Approximate), Expires: 05/25/2025 [facility] Comment on above: Expected: 05/25/2024 (Approximate), Expi res: 05/25/2025 Start: 05-25-2024 End: 05-25-2025 Ferritin [Mass/volume] in Serum or Plasma Ferritin Lab Routine Thrombocytopenia, unspecified (CMS/HCC) Iron deficiency anemia following bariatric surgery Expected: 05/25/2024 (Approximate), Expires: 05/25/2025 [facility] Comment on above: Expected: 05/25/2024 (Approximate), Expi res: 05/25/2025 Start: 05-25-2024 End: 05-25-2025 Gamma glutamyl transferase [Enzymatic activity/volume] in Serum or Plasma Gamma GT Lab Routine Elevated liver function tests Expected: 05/25/2024 (Approximate), Expires: 05/25/2025 [facility] Comment on above: Expected: 05/25/2024 (Approximate), Expi res: 05/25/2025 Start: 05-25-2024 End: 05-25-2025 Hepatic function 2000 panel - Serum or Plasma Hepatic function panel Lab Routine Elevated liver function tests Expected: 05/25/2024 (Approximate), Expires: 05/25/2025 [facility] Work Phone: Comment on above: Expected: 05/25/2024 (Approximate), Expi res: 05/25/2025 Start: 05-25-2024 End: 05-25-2025 Iron and Iron binding capacity panel - Serum or Plasma Iron level Lab Routine Thrombocytopenia, unspecified (CMS/HCC) Iron deficiency anemia following bariatric surgery Expected: 05/25/2024 (Approximate), Expires: 05/25/2025 [facility] Comment on above: Expected: 05/25/2024 (Approximate), Expi res: 05/25/2025 Start: 04-27-2024 End: 04-27-2025 Echo complete W/O contrast Echo complete W/O contrast Echocardiography Routine Nonischemic cardiomyopathy (CMS-HCC) Expected: 04/27/2024, Expires: 04/27/2025 [facility] Work Phone: Comment on above: Expected: 04/27/2024, Expires: Start: 04-27-2024 End: 04-27-2024 Patient encounter procedure 04/27/2024 8:30 AM EDT Office Visit [facility] [address] [place] [address] Yisel Heart MD [address] [place] [address] [facility] Start: 12-28-2023 Screening for malignant neoplasm of colon [facility] Start: 10-15-2023 Adult BMI Screening Adult BMI Screening [facility] Start: 10-15-2023 Tobacco Screening Tobacco Screening [facility] Start: 05-29-2023 COVID-19 Vaccine ( season) COVID-19 Vaccine ( season) [facility] Start: 05-29-2023 Influenza vaccination Influenza Vaccine (#1) [facility] Start: 2022 Abdominal aortic aneurysm screening Abdominal Aortic Aneurysm (AAA) Screen [facility] Start: 2022 Fall Risk Screening Fall Risk Screening [facility] Start: 11-28-2007 Administration of varicella zoster vaccine Zoster (Shingles) Vaccine (1 of 2) [facility] Start: 1969 Depression Screening Depression Screening [facility] Start: 11-28-1963 Pneumococcal Vaccine: 65+ Years (1 - PCV) Pneumococcal Vaccine: 65+ Years (1 - PCV) [facility] Start: 1957 Medicare Annual Wellness Visit Medicare Annual Wellness Visit [facility] Start: 1955 Screening for malignant neoplasm of colon [facility] End: 05-18-2025 Lipid panel Lipid panel Lab Routine Mixed hyperlipidemia 1 Occurrences starting 05/19/2024 until 05/18/2025 [facility] Work Phone: Comment on above: 1 Occurrences starting 05/19/2024 until 05/18/2025 POCT EKG POCT EKG ECG Rou linda Nonischemic cardiomyopathy (CMS-HCC) Chronic systolic heart failure (CMS-HCC) Nonsustained ventricular tachycardia ([facility]-HCC) Status post ablation of ventricular arrhythmia 04/27/2024 [facility] Immunizations Immunization Date Immunization Notes Care Provider [facility] 08-03-2024 Influenza, High-dose Seasonal, Quadrivalent, Preservative Free Park Yoder COMMUNITY COORDINATOR Work Phone: [facility] 08-12-2023 Influenza, High-dose Seasonal, Quadrivalent, Preservative Free Park Yoder COMMUNITY COORDINATOR Work Phone: [facility] 08-12-2023 influenza virus vaccine, unspecified formulation Ifrah Tapia [facility] 07-29-2021 influenza virus vaccine, unspecified formulation Ary ARTEAGA [facility] [place] 02-13-2021 SARS-CoV-2 (COVID-19 ) mRNA BNT-162b2 farhanax Delma BRIGGS [facility] 01-23-2021 SARS-CoV-2 (COVID-19 ) mRNA BNT-162b2 farhanax Delma BIRGGS [facility] 09-28-2020 SARS-CoV-2 (COVID-19 ) mRNA BNT-162b2 vax Ary ARTEAGA [facility] [place] 07-02-2020 influenza virus vaccine, unspecified formulation Ary ARTEAGA [facility] [place] 06-16-2020 diphtheria, tetanus toxoids and pertussis vaccine Park Paresh COMMUNITY COORDINATOR Work Phone: [facility] Payers Date Payer Category Payer Unknown [id number] 2020 Unknown [id number] 2020 [facility] 1.2.8 [id number] 2020 Unknown 1959 Unknown [id number] 1957 Unknown [id number] 2.16.84 0.1.954475.3.579.2.593 1957 Unknown [id number] 2.16.84 0.1.353022.3.579.2.593 1957 Unknown [id number] 2.16.84 0.1.527429.3.579.2.593 1957 Unknown [id number] 2.16.84 0.1.891982.3.579.2.593 1957 Unknown [id number] 2.16.84 0.1.789382.3.579.2.593 1957 Unknown [id number] 2.16.84 0.1.937908.3.579.2.593 1957 Unknown [id number] 2.16.84 0.1.403387.3.579.2.593 1957 Unknown [id number] 2.16.84 0.1.643790.3.579.2.593 1957 Unknown [id number] 2.16.84 0.1.135226.3.579.2.593 1957 Unknown [id number] 2.16.8 40.1.916883.3.579.2.1286 1957 Unknown [id number] 2.16.8 40.1.109452.3.579.2.727 1957 Unknown [id number] 2.16.8 40.1.082948.3.579.2.727 1957 Unknown [id number] 2.16.84 0.1.501342.3.579.2.1259 1957 Unknown [id number] 2.16.84 0.1.025273.3.579.2.1259 1957 Unknown [id number] 2.16.84 0.1.512988.3.579.2.1259 1957 Unknown [id number] 2.16.84 0.1.905517.3.579.2.1259 1957 Unknown [id number] 2.16.84 0.1.870308.3.579.2.1259 1957 Unknown [id number] 2.16.84 0.1.198281.3.579.2.1259 1957 Unknown [id number] 2.16.84 0.1.983460.3.579.2.1259 1957 Unknown [id number] 2.16.84 0.1.511948.3.579.2.1259 1957 Unknown [id number] 2.16.84 0.1.610818.3.579.2.1259 Social History Date Type Detail Facility Start: 12-06-2021 End: 10-26-2023 Tobacco smoking status Never smoked tobacco (finding) [facility] [place] Tobacco smoking status Never [facility] [place] Start: 10-26-2023 End: 11-29-2024 Sex Assigned At Male [facility] [place] Start: 10-19-2023 Tobacco smoking status Light t obacco smoker (finding) [facility] Start: 10-26-2023 End: 11-29-2024 History of Social function [facility] Start: 1955 Sex Assigned At Not on file [facility] Start: 11-04-2023 End: 11-29-2024 Alcohol intake Ex-drinker (finding) [facility] Start: 11-04-2023 Alcohol Comment caffine: 3 cups lucretia y [facility] Start: 09-16-2024 Tobacco smoking stat [facility] Tobacco smoking consumption unknown [facility] Start: 10-24-2024 Tobacco smoking status Smokes tobacco daily (finding) [facility] Start: 10-15-2022 Tobacco smoking status Ex-smoker (fi nding) [facility] History of tobacco use Current smoker Pro [facility] History of tobacco use Cigar Smoker [facility] Start: 10-15-2022 End: 11-29-2024 Tobacco use and exposure Smokeless tobacco non-user [facility] Start: 10-15-2022 End: 04-27-2024 Alcoholic beverage intake Current drinker of alcohol (finding) [facility] Start: 10-15-2022 Tobacco Comment smokes a cigar occasionally [facility] Start: 04-06-2017 Alcohol Comment 1 drink per day [facility] Start: 11-29-2024 Tobacco smoking stat [facility] Occasional tobacco smoker [facility] Functional Status Date Assessment Result Facility 10-24-2024 Functional Status N/A [facility] 10-19-2023 Functional Status Yes [facility] 04-13-2023 Functional Status N/A [facility] 11-04-2022 Functional Status N/A [facility] 05-19-2022 Functional Status N/A [facility] Clinical Notes 12-18-2021 to 11-29-2024 Vijay Atkins MD - 11/29/2024 1:40 PM [facility] NP - 08/18/2024 3:40 PM [facility] Y[facility], CHRISTOPHE - 08/18/2024 7:55 AM Nia Yoder, CHRISTOPHE - 08/18/2024 7:55 AM ESTPatient Instructions Note Date & Type Note Facility 11-29-2024 History of Present illness Narrative Miki Benitez is a 69 y.o. male Vijay Atkins MD presents with chief complaint of Abnormal Calcium HPI: Interim History 11/2024 Follow up visit on 11/29/2024, He is on 7500 unit of vitamin D and 1300 mg calcium, plus 50,000 units once weekly. Interim History 05/2024 Follow up visit on 05/31/2024 for lab. Calcium 8.3 (8.5-10.3), magnesium 2.1, phosphorus 3.2, vitamin D 14. A 24-hour urine calcium 131 (100-300). He is on 7500 unit of vitamin D and 1300 mg calcium. He feels better. DEXA scan not done yet. HPI : 04/2024 New patient sent from [facility] for hyperparathyroidism, PTH 207 (15-65). This lab done in 03/2024. Alkaline phosphatase 96 (16-63), but calcium is at low side, 7.1 (8.5-10.1). Currently, he is on Vitamin D 7500 units, calcium 1300 mg plus multivitamin. His BUN 32. I do not know what is his GFR. Denies kidney stone or fracture in his bone. Denied thyroid or parathyroid problem. Denies family history of hypercalcemia or calcium issues. SUBJECTIVE: MEDICATIONS: Current Outpatient Medications Medication Instructions aspirin 81 mg, Daily atorvastatin (Lipitor) 40 MG tablet 1 tablet, Every morning Cholecalciferol (VITAMIN D3 GUMMIES ADULT PO) 4 times daily dutasteride (Avodart) 0.5 MG capsule 1 capsule, Daily ergocalciferol (VITAMIN D2) 1.25 mg, Oral, Every 7 days ferrous sulfate 325 mg, 2 times daily fluticasone (Flonase) 50 MCG/ACT nasal spray 2 sprays, Daily lisinopril 5 MG tablet 1 tablet, Every morning metoprolol succinate XL (Toprol-XL) 25 MG 24 hr tablet 1 tablet, Daily Multiple Vitamin (multivitamin) tablet 1 tablet, Daily ALLERGIES: No Known Allergies Past Medical History: Diagnosis Date Allergic rhinitis At moderate risk for fall Atrial flutter (CMS/HCC) Benign prostatic hyperplasia with lower urinary tract symptoms, symptom details unspecified Cardiomyopathy (CMS/HCC) COVID-19 virus infection Elevated liver function tests Elevated parathyroid hormone Enlarged prostate Fatigue Gross hematuria H/O bariatric [...] block) Rectal burning Ruptured tympanic membrane, right Secondary hyperparathyroidism (CMS/HCC) Systolic heart failure (CMS/HCC) Venous insufficiency of both lower extremities Ventricular tachycardia (CMS/HCC) Vitamin D deficiency, unspecified Weakness of both legs Past Surgical History: Procedure Laterality Date BARIATRIC SURGERY REVIEW OF SYMPTOMS: 14 POINT OF SYSTEM REVIEWED AND NEGATIVE OBJECTIVE: Visit Vitals Pulse 70 Resp 16 Ht 5' 11 Wt 233 lb SpO2 94% BMI 32.50 kg/m Smoking Status Some Days BSA 2.3 m Physical Exam Constitutional: Appearance: Normal appearance. He is normal weight. HENT: Head: Normocephalic and atraumatic. Right Ear: External ear normal. Nose: Nose normal. Mouth/Throat: Pharynx: Oropharynx is clear. Eyes: Extraocular Movements: Extraocular movements intact. Pupils: Pupils are equal, round, and reactive to light. Cardiovascular: Rate and Rhythm: Normal rate and regular rhythm. Pulmonary: Effort: Pulmonary effort is normal. Abdominal: General: Abdomen is flat. Palpations: Abdomen is soft. Musculoskeletal: General: Normal range of motion. Skin: General: Skin is warm. Neurological: General: No focal deficit present. Mental Status: He is alert. Psychiatric: Mood and Affect: Mood normal. Behavior: Behavior normal. ASSESSMENT AND PLAN: Assessment/Plan Diagnoses and all orders for this visit: Hypocalcemia - Magnesium; Future - Renal function panel; Future Continue his supplement 1300 mg plus multivitamin. Vitamin D deficiency - Vitamin D 25 hydroxy Total; Future Continue with 7500 units plus 50,000 once weekly. Secondary hyperparathyroidism (CMS/HCC) - PTH, intact; Future Follow up in about 6 months (around 06/01/2025). documented in this encounter [facility] 10-24-2024 Hospital Discharge instructions Patient Education 10/24/2024 17:11:12 Prostatitis Prostatitis Prostatitis is swelling or inflammation of the prostate gland, also called the prostate. This gland is about 1.5 inches wide and 1 inch high, and it is involved in making semen. The prostate is located below a man's bladder, in front of the rectum. There are four types of prostatitis: Chronic prostatitis (CP), also called chronic pelvic pain syndrome (CPPS). This is the most common type of prostatitis. It is associated with increased muscle tone in the area between the hip bones (pelvic area), around the prostate. This type is also known as a pelvic floor disorder. Chronic bacterial prostatitis. This type usually results from an acute bacterial infection in the prostate gland that keeps coming back or has not been treated properly. The symptoms are less severe than those caused by acute bacterial prostatitis, which lasts a shorter time. Asymptomatic inflammatory prostatitis. This type does not have symptoms and does not need treatment. This is diagnosed when tests are done for other disorders of the urinary tract or reproductive tract. Acute bacterial prostatitis. This type starts quickly and results from an acute bacterial infection in the prostate gland. It is usually associated with a bladder infection, high fever, and chills. This is the least common type of prostatitis. What are the causes? Bacterial prostatitis is caused by an infection from bacteria. Chronic nonbacterial prostatitis may be caused by: Factors related to the nervous system. This system includes thebrain, spinal cord, and nerves. An autoimmune response. This happens when the body's disease-fighting system attacks healthy tissue in the body by mistake. Psychological factors. These have to do with how the mind works. The causes of the other types of prostatitis are usually not known. What are the signs or symptoms? Symptoms of this condition depend on the type of prostatitis you have. Acute bacterial prostatitis Symptoms may include: Pain or burning during urination. Frequent and sudden urges to urinate. Trouble starting to urinate. Fever. Chills. Pain in your muscles or joints, lower back, or lower abdomen. Other types of prostatitis Symptoms may include: Sudden urges to urinate, or urinating often. Trouble starting to urinate. Weak urine stream. Dribbling after urination. Discharge coming from the penis. Pain in the testicles, the penis, or the tip of the penis. Pain in the area in front of the rectum and below the scrotum (perineum). Pain when ejaculating. How is this diagnosed? This condition may be diagnosed based on: A physical and medical exam. A digital rectal exam. For this, the health care provider may use a finger to feel the prostate. A urine test to check for bacteria. A semen sample or blood tests. Ultrasound. Urodynamic tests to check how your body handles urine. Cystoscopy to look inside your bladder or inside the part of your body that drains urine from the bladder (urethra). How is this treated? Treatment for this condition depends on the type of prostatitis. Treatment may involve: Medicines to relieve pain or inflammation, or to help relax your muscles. Physical therapy. Heat therapy. Biofeedback. These techniques help you control certain body functions. Relaxation exercises. Antibiotic medicine, if your condition is caused by bacteria. Sitz baths. These warm water baths help to relax your pelvic floor muscles, which helps to relieve pressure on the prostate. Follow these instructions at home: Medicines Take [id number] and prescription medicines only as told by your health care provider. If you were prescribed an antibiotic medicine, take it as told by your health care provider. Do not stop using the antibiotic even if you start to feel better. Managing pain and swelling Take sitz baths as directed by your health care provider. For a sitz bath, sit in warm water that is deep enough to cover your hips and buttocks. If directed, apply heat to the affected area as often as told by your health care provider. Use the heat source that your health care provider recommends, such as a moist heat pack or a heating pad. ?Place a towel between your skin and the heat source. ?Leave the heat on for 20 30 minutes. ?Remove the heat if your skin turns bright red. This is especially important if you are unable to feel pain, heat, or cold. You may have a greater risk of getting burned. General instructions Do exercises as told by your health care provider, if you were prescribed physical therapy, biofeedback, or relaxation exercises. Keep all follow-up visits as told by your health care provider. This is important. Where to find more information National [place] of Diabetes and Digestive and Kidney Diseases: https://www.niddk.nih.gov Contact a health care provider if: Your symptoms get worse. You have a fever. Get help right away if: You have chills. You feel light-headed or feel like you may faint. You cannot urinate. You have blood or blood clots in your urine. Summary Prostatitis is swelling or inflammation of the prostate gland. Treatment for this condition depends on the type of prostatitis. Take fufu-awy-husredz and prescription medicines only as told by your health care provider. Get help right away of you have chills, feel light-headed, feel like you may faint, cannot urinate, or have blood or blood clots in your urine. This information is not intended to replace advice given to you by your health care provider. Make sure you discuss any questions you have with your health care provider. Document Revised: 07/30/2023 Document Reviewed: 07/30/2023 [employer] Patient Education 2023 [employer]. Follow Up Care 10/19/2023 15:47:06 With:ANAHI MCDONALD, Delma Ross, URL Address: [facility] [address] [place] [phone] When: Unknown Comments:1 yr w/ PSA and KUB [facility] Jenny 10-24-2024 Note Patient Education Infectious Disease Prostatitis Prostatitis is swelling or inflammation of the prostate gland, also called the prostate. This gland is about 1.5 inches wide and 1 inch high, and it is involved in making semen. The prostate is located below a man's bladder, in front of the rectum. There are four types of prostatitis: ??? Chronic prostatitis (CP), also called chronic pelvic pain syndrome (CPPS). This is the most common type of prostatitis. It is associated with increased muscle tone in the area between the hip bones (pelvic area), around the prostate. This type is also known as a pelvic floor disorder. ??? Chronic bacterial prostatitis. This type usually results from an acute bacterial infection in the prostate gland that keeps coming back or has not been treated properly. The symptoms are less severe than those caused by acute bacterial prostatitis, which lasts a shorter time. ??? Asymptomatic inflammatory prostatitis. This type does not have symptoms and does not need treatment. This is diagnosed when tests are done for other disorders of the urinary tract or reproductive tract. ??? Acute bacterial prostatitis. This type starts quickly and results from an acute bacterial infection in the prostate gland. It is usually associated with a bladder infection, high fever, and chills. This is the least common type of prostatitis. What are the causes? Bacterial prostatitis is caused by an infection from bacteria. Chronic nonbacterial prostatitis may be caused by: ??? Factors related to the nervous system. This system includes thebrain, spinal cord, and nerves. ??? An autoimmune response. This happens when the body's disease-fighting system attacks healthy tissue in the body by mistake. ??? Psychological factors. These have to do with how the mind works. The causes of the other types of prostatitis are usually not known. What are the signs or symptoms? Symptoms of this condition depend on the type of prostatitis you have. Acute bacterial prostatitis Symptoms may include: ??? Pain or burning during urination. ??? Frequent and sudden urges to urinate. ??? Trouble starting to urinate. ??? Fever. ??? Chills. ??? Pain in your muscles or joints, lower back, or lower abdomen. Other types of prostatitis Symptoms may include: ??? Sudden urges to urinate, or urinating often. ??? Trouble starting to urinate. ??? Weak urine stream. ??? Dribbling after urination. ??? Discharge coming from the penis. ??? Pain in the testicles, the penis, or the tip of the penis. ??? Pain in the area in front of the rectum and below the scrotum (perineum). ??? Pain when ejaculating. How is this diagnosed? This condition may be diagnosed based on: ??? A physical and medical exam. ??? A digital rectal exam. For this, the health care provider may use a finger to feel the prostate. ??? A urine test to check for bacteria. ??? A semen sample or blood tests. ??? Ultrasound. ??? Urodynamic tests to check how your body handles urine. ??? Cystoscopy to look inside your bladder or inside the part of your body that drains urine from the bladder (urethra). How is this treated? Treatment for this condition depends on the type of prostatitis. Treatment may involve: ??? Medicines to relieve pain or inflammation, or to help relax your muscles. ??? Physical therapy. ??? Heat therapy. ??? Biofeedback. These techniques help you control certain body functions. ??? Relaxation exercises. ??? Antibiotic medicine, if your condition is caused by bacteria. ??? Sitz baths. These warm water baths help to relax your pelvic floor muscles, which helps to relieve pressure on the prostate. Follow these instructions at home: Medicines ??? Take macl-akv-lwrikft and prescription medicines only as told by your health care provider. ??? If you were prescribed an antibiotic medicine, take it as told by your health care provider. Do not stop using the antibiotic even if you start to feel better. Managing pain and swelling ??? Take sitz baths as directed by your health care provider. For a sitz bath, sit in warm water that is deep enough to cover your hips and buttocks. ??? If directed, apply heat to the affected area as often as told by your health care provider. Use the heat source that your health care provider recommends, such as a moist heat pack or a heating pad. ? Place a towel between your skin and the heat source. ? Leave the heat on for 20?30 minutes. ? Remove the heat if your skin turns bright red. This is especially important if you are unable to feel pain, heat, or cold. You may have a greater risk of getting burned. General instructions ??? Do exercises as told by your health care provider, if you were prescribed physical therapy, biofeedback, or relaxation exercises. ??? Keep all follow-up visits as told by your health care provider. This is important. (more content not included)... [facility] 08-18-2024 History of Present illness Narrative Images from the original note were not included. Miki Benitez is a 68 y.o. male presents with chief complaint of No chief complaint on file. HPI: Hypertension This is a chronic problem. The current episode started more than 1 year ago. The problem is unchanged. The problem is controlled. Pertinent negatives include no blurred vision, chest pain, malaise/fatigue, orthopnea, palpitations, peripheral edema, PND or shortness of breath. There are no associated agents to hypertension. Risk factors for coronary artery disease include male gender and obesity. Past treatments include beta blockers and ANUEL inhibitors. The current treatment provides significant improvement. There are no compliance problems. Hypertensive end-organ damage includes heart failure. Congestive Heart Failure Presents for follow-up visit. Associated symptoms include edema. Pertinent negatives include no abdominal pain, chest pain, chest pressure, fatigue, near-syncope, orthopnea, palpitations, shortness of breath or unexpected weight change. The symptoms have been stable. Compliance with total regimen is 76-100%. Compliance with medications is 76-100%. SUBJECTIVE: MEDICATIONS: Current Outpatient Medications Medication Instructions aspirin 81 mg, Daily atorvastatin (Lipitor) 40 MG tablet 1 tablet, Every morning Cholecalciferol (VITAMIN D3 GUMMIES ADULT PO) 4 times daily dutasteride (Avodart) 0.5 MG capsule 1 capsule, Daily ergocalciferol (VITAMIN D2) 50,000 Units, Weekly ferrous sulfate 325 mg, 2 times daily fluticasone (Flonase) 50 MCG/ACT nasal spray 2 sprays, Daily lisinopril 5 MG tablet 1 tablet, Every morning metoprolol succinate XL (Toprol-XL) 25 MG 24 hr tablet 1 tablet, Daily Multiple Vitamin (multivitamin) tablet 1 tablet, Daily ALLERGIES: No Known Allergies REVIEW OF SYMPTOMS: Review of Systems Constitutional: Negative for activity change, appetite change, fatigue, malaise/fatigue and unexpected weight change. HENT: Negative for ear pain, nosebleeds, sneezing, trouble swallowing and voice change. Eyes: Negative for blurred vision, pain, discharge and visual disturbance. Respiratory: Negative for apnea, chest tightness, shortness of breath and wheezing. Cardiovascular: Positive for leg swelling. Negative for chest pain, palpitations, orthopnea, PND and near-syncope. Gastrointestinal: Negative for abdominal distention, abdominal pain, blood in stool, constipation and diarrhea. Genitourinary: [...] both lower extremities Weakness of both legs History reviewed. No pertinent surgical history. family history is not on file. OBJECTIVE: Visit Vitals BP 122/78 (BP Location: Left arm, Patient Position: Sitting, BP Cuff Size: Adult long) Pulse 71 Temp 98.1 F (Temporal) Resp 21 Ht 5' 10 Wt 234 lb 12.8 oz SpO2 97% BMI 33.69 kg/m Smoking Status Never BSA 2.3 m Physical Exam Vitals and nursing note reviewed. Constitutional: General: He is not in acute distress. Appearance: Normal appearance. He is obese. He is not ill-appearing or toxic-appearing. HENT: Head: Normocephalic. Right Ear: External ear normal. Left Ear: External ear normal. Nose: Nose normal. Mouth/Throat: Mouth: Mucous membranes are moist. Pharynx: Oropharynx is clear. Eyes: Extraocular Movements: Extraocular movements intact. Conjunctiva/sclera: Conjunctivae normal. Neck: Vascular: No carotid bruit. Cardiovascular: Rate and Rhythm: Normal rate and regular rhythm. Pulses: Normal pulses. Heart sounds: Normal heart sounds. Pulmonary: Effort: Pulmonary effort is normal. Breath sounds: Normal breath sounds. No wheezing or rales. Abdominal: Palpations: Abdomen is soft. Tenderness: There is no abdominal tenderness. Musculoskeletal: Cervical back: Neck supple. Right lower leg: No edema. Left lower leg: No edema. Lymphadenopathy: Cervical: No cervical adenopathy. Skin: General: Skin is warm and dry. Capillary Refill: Capillary refill takes 2 to 3 seconds. Comments: sallow Neurological: General: No focal deficit present. Mental Status: He is alert. Psychiatric: Mood and Affect: Mood normal. Behavior: Behavior normal. Thought Content: Thought content normal. Judgment: Judgment normal. ASSESSMENT AND PLAN: Follow up in about 6 months (around 02/15/2025) for Recheck. Problem List Items Addressed This Visit Chronic systolic heart failure (CMS/HCC) Continue current meds Continue with periodic cardiology appts Relevant Orders Lipid panel BMI 37.0-37.9, adult HTN (hypertension) (CMS/HCC) - Primary Please check blood pressure daily and record DASH diet Limit caffeine Take medication as directed Contact office if chest pain, pressure, dizziness, shortness of breath, swelling legs Recommend slow position changes Continue with anuel and b ridge Relevant Orders Urinalysis with reflex microscopic (clean catch) Microalbumin / creatinine, urine ratio H/O bariatric surgery Continue with vitamins As well as iron supplements Relevant Orders Vitamin B12 Vitamin D 25 hydroxy Iron deficiency anemia following bariatric surgery Relevant Orders CBC and differential Iron + transferrin + TIBC Elevated liver function tests Hypocalcemia Vitamin D deficiency Relevant Orders Vitamin D 25 hydroxy Hyperparathyroidism, unspecified (CMS/HCC) Relevant Orders Vitamin D 25 hydroxy PTH, intact Comprehensive metabolic panel Associated Problem(s): H/O bariatric surgery Continue with vitamins As well as iron supplements Associated Problem(s): Chronic systolic heart failure (CMS/HCC) Continue current meds Continue with periodic cardiology appts Associated Problem(s): HTN (hypertension) (CMS/HCC) Please check blood pressure daily and record DASH diet Limit caffeine Take medication as directed Contact office if chest pain, pressure, dizziness, shortness of breath, swelling legs Recommend slow position changes Continue with anuel and b ridge documented in this encounter [facility] 08-18-2024 Instructions [facility] NP - 08/18/2024 3:40 PM EST No med dose changes at this time MAKE SURE YOU KEEP TAKING YOUR SUPPLEMENTS!!!! I will send you lab slip in October 2024 documented in this encounter [facility] 06-07-2024 Miscellaneous Notes Images from the original note were not included. Makenzie Roberson RN 06/07/2024 2:28 PM EDT Back to [facility] Lab results and TLMs recommendations called and reviewed with patient. Pt will decrease Lipitor to 20 mg daily, repeat fasting labs next year and new script will be sent to [facility] today. Makenzie Roberson RN 06/07/2024 2:22 PM EDT MD Makenzie Sheikh RN I would decrease his Lipitor down to 20 mg a day and recheck it in a year. Makenzie Roberson RN 06/07/2024 11:53 AM EDT TLM, labs ordered d/t med refills. Med list includes Lipitor 40 mg daily. Chol 68 Trigly 36 LDL 13.8 signed documented in this encounter [facility] 06-07-2024 Telephone encounter Note Images from the original note were not included. Makenzie Roberson RN 06/07/2024 2:28 PM EDT Back to [facility] Lab results and TLMs recommendations called and reviewed with patient. Pt will decrease Lipitor to 20 mg daily, repeat fasting labs next year and new script will be sent to [facility] today. Makenzie Roberson RN 06/07/2024 2:22 PM EDT MD Makenzie Sheikh RN I would decrease his Lipitor down to 20 mg a day and recheck it in a year. Makenzie Roberson RN 06/07/2024 11:53 AM EDT TLM, labs ordered d/t med refills. Med list includes Lipitor 40 mg daily. Chol 68 Trigly 36 LDL 13.8 [facility] 06-07-2024 Telephone encounter Note signed [facility] 05-25-2024 History of Present illness Narrative Associated Problem(s): Weakness improving Associated Problem(s): Thrombocytopenia, unspecified (CMS/HCC) Recheck CBC Associated Problem(s): Iron deficiency anemia following bariatric surgery Will recheck his cbc iron ferritin Associated Problem(s): Vitamin D deficiency As per endo recommendations Associated Problem(s): Hyperparathyroidism, unspecified (CMS/HCC) Continue with Endo for this Possibly related to vit d def Associated Problem(s): Elevated liver function tests Enlarged liver on US, no masses Will recheck LFT including a GGT test Associated Problem(s): HTN (hypertension) (CMS/HCC) Stable no med dose changes Right shoulder pain-ROM weak for a couple months now. Pt is also taking calcium 250mg twice daily Images from the original note were not included. Miki Benitez is a 68 y.o. male presents with chief complaint of No chief complaint on file. HPI: Here for a recheck. Overall he is feeling better. He is feeling stronger, saw neurology they wanted to do EMG, but by the time he saw neurology he did feel he was getting stronger. He does not want to do the EMG. He feels his leg and gait is getting stronger as well. Went and saw endo, had repeat labs and 24 hour urine. He has a fu appt in a few weeks with him He is taking his vitamins as directed and really can tell a difference in how he feels He denies any abd pain, no yellowing of the skin, and no stool or urine discoloration SUBJECTIVE: MEDICATIONS: Current Outpatient Medications Medication Instructions aspirin 81 mg, Oral, Daily atorvastatin (Lipitor) 40 MG tablet 1 tablet, Oral, Every morning cetirizine (ZyrTEC) 10 MG tablet 1 tablet, Oral, Daily Cholecalciferol (VITAMIN D3 GUMMIES ADULT PO) Oral, 4 times daily dutasteride (Avodart) 0.5 MG capsule 1 capsule, Oral, Daily ferrous sulfate 325 mg, Oral, 2 times daily fluticasone (Flonase) 50 MCG/ACT nasal spray 2 [...] for apnea, chest tightness and wheezing. Cardiovascular: Negative for leg swelling. Gastrointestinal: Negative for abdominal distention, blood in stool, constipation and diarrhea. Genitourinary: Negative for decreased urine volume, difficulty urinating, dysuria and hematuria. Musculoskeletal: Positive for arthralgias. Negative for back pain. Skin: Negative for color change. Neurological: Negative [...] both lower extremities Weakness of both legs History reviewed. No pertinent surgical history. family history is not on file. OBJECTIVE: Visit Vitals BP 90/52 (BP Location: Left arm, Patient Position: Sitting, BP Cuff Size: Adult long) Pulse 67 Temp 97.3 F (Temporal) Resp 18 Ht 5' 10 Wt 232 lb SpO2 97% BMI 33.29 kg/m Smoking Status Never BSA 2.28 m Physical Exam Vitals and nursing note reviewed. Constitutional: Appearance: Normal appearance. HENT: Head: [...] sounds. Abdominal: General: Bowel sounds are normal. There is no distension. Palpations: Abdomen is soft. There is no mass. Tenderness: There is no abdominal tenderness. There is no guarding. Musculoskeletal: Cervical back: Neck supple. Right lower leg: Edema present. Left lower leg: Edema present. Comments: trace Lymphadenopathy: Cervical: No cervical adenopathy. Skin: General: Skin is warm and dry. Capillary Refill: Capillary refill takes 2 to 3 seconds. Coloration: Skin is not jaundiced or pale. Findings: No erythema or rash. Neurological: General: No focal deficit present. Mental Status: He is alert. Psychiatric: Mood and Affect: Mood normal. Behavior: Behavior normal. Thought Content: Thought content normal. Judgment: Judgment normal. ASSESSMENT AND PLAN: No follow-ups on file. Problem List Items Addressed This Visit Other ventricular tachycardia (CMS/HCC) HTN (hypertension) (CMS/HCC) Stable no med dose changes Iron deficiency anemia following bariatric surgery Will recheck his cbc iron ferritin Relevant Orders CBC and differential Iron level Ferritin Weakness - Primary improving Elevated liver function tests Enlarged liver on US, no masses Will recheck LFT including a GGT test Relevant Orders Hepatic function panel Gamma GT Vitamin D deficiency As per endo recommendations RESOLVED: Elevated parathyroid hormone Thrombocytopenia, unspecified (CMS/HCC) Recheck CBC Relevant Orders CBC and differential Iron level Ferritin Hyperparathyroidism, unspecified (CMS/HCC) Continue with Endo for this Possibly related to vit d def documented in this encounter [facility] 05-20-2024 Miscellaneous Notes OV 04/27/24 04/02/24 CBC, CMP documented in this encounter [facility] 05-20-2024 Telephone encounter Note OV 04/27/24 04/02/24 CBC, CMP [facility] 05-18-2024 Miscellaneous Notes Last OV 04/27/24 Order placed for lipids.slm documented in this encounter [facility] 05-18-2024 Telephone encounter Note Last OV 04/27/24 Order placed for lipids.slm [facility] 05-06-2024 Miscellaneous Notes Last ov 04/27/24 Bmp 04/21/24 Lipid 04/01/23 Financial Aid Manager attempted to contact ptmanishom For further refills, pt needs to complete lipid lab. Letter mailed tp pt. documented in this encounter [facility] 05-06-2024 Telephone encounter Note Last ov 04/27/24 Bmp 04/21/24 Lipid 04/01/23 Financial Aid Manager attempted to contact pt, lmom For further refills, pt needs to complete lipid lab. Letter mailed tp pt. [facility] 04-27-2024 History of Present illness Narrative Miki Benitez Jr. Date of visit: 04/27/2024 Date of : 1955 Age: 68 y.o. Patient Active Problem List Diagnosis Ventricular premature depolarization Abnormal electrocardiogram Chronic systolic congestive heart failure (CMS-HCC) Preop cardiovascular exam Acute renal failure (CMS-HCC) Hypokalemia Calculus of ureter Calculus of kidney Nonsustained ventricular tachycardia (CMS-HCC) Paroxysmal ventricular tachycardia (CMS-HCC) Chronic systolic heart failure (CMS-HCC) Nonischemic cardiomyopathy (CMS-HCC) Ventricular contraction, premature Typical atrial flutter (CMS-HCC) Right bundle branch block Shortness of breath Status post ablation of ventricular arrhythmia Allergies Allergen Reactions No Known Drug Allergies Other reaction(s): Unknown Current Outpatient Medications Medication Sig Dispense Refill aspirin 81 mg Take 1 tablet (81 mg total) by mouth daily. 90 tablet 3 atorvastatin (LIPITOR) 40 mg tablet Take 1 tablet (40 mg total) by mouth in the morning. 90 tablet 0 calcium carb/vitamin D3/vit K1 (CALCIUM SOFT CHEW ORAL) Take 250 mg by mouth daily. IRON, FERROUS SULFATE, ORAL Take 30 mg by mouth. 2 tablets daily-chew lisinopriL (PRINIVIL,ZESTRIL) 5 mg tablet Take 1 tablet (5 mg total) by mouth in the morning. 90 tablet 0 metoprolol succinate XL (TOPROL XL) 25 mg 24 hr tablet Take 1 tablet (25 mg total) by mouth in the morning and 1 tablet (25 mg total) before bedtime. 180 tablet 0 multivitamin (THERAGRAN) tablet Take 1 tablet by mouth in the morning. No current facility-administered medications for this visit. Chief Complaint Patient presents with Follow-up 18 month Congestive Heart Failure History of Present Illness Miki is here for follow-up. He has a history of nonischemic cardiomyopathy, post radiofrequency ablation of RV outflow tract ventricular tachycardia and chronic systolic heart failure. From a cardiac standpoint he is doing fairly well. Not having any significant symptoms of chest pain or shortness of breath. He occasionally will have some dizziness with change of position but this is not an ongoing problem. He does report some muscle weakness which he thinks is related to not taking calcium and vitamin D3 after his bariatric surgery. He has resumed taking these medications and feels a lot better. He states that his blood pressure generally runs on the low side. He is not having any palpitations. Past Medical History: Diagnosis Date Abnormal ECG Abnormal findings on diagnostic imaging of heart and coronary circulation Anemia Arrhythmia BPH (benign prostatic hyperplasia) Chronic systolic congestive heart failure ([facility]-HCC) Encounter for preprocedural cardiovascular examination Hyperlipidemia Kidney stones lithotrypsy Ventricular premature depolarization No data recorded No data recorded No data recorded Past Surgical History: Procedure Laterality Date APPENDECTOMY CHOLECYSTECTOMY Coronary angiogram and right heart and left ventricular gram/pressure N/A 04/14/2017 Performed by Aidan Pittman MD at [facility] CARDIAC CATH LABS GASTRIC BYPASS HERNIA REPAIR PVC ABLATION, RHYTHMIA, ICE N/A 11/13/2017 Performed by Sameer Martínez MD at [facility] (EP) TRANSURETHRAL RESECTION OF PROSTATE Family History Problem Relation Age of Onset No Known Problems Mother Heart disease Father Social History Socioeconomic History Marital status: Spouse name: Not on file Number of children: Not on file Years of education: Not on file Highest education level: Not on file Occupational History Not on file Tobacco Use Smoking status: Former Types: Cigars Smokeless tobacco: Never Tobacco comments: smokes a cigar occasionally Vaping Use Vaping status: Never Used Substance and Sexual Activity Alcohol use: Yes Alcohol/week: 7.0 standard drinks of alcohol Types: 7 Standard drinks or equivalent per week Comment: 1 drink per day Drug use: No Sexual activity: Defer Other Topics Concern Caffeine Use Yes Comment: COFFEE 16 OZ DAILY Social History Narrative Not on file Social Determinants of Health Financial Resource Strain: Not on file Food Insecurity: No Food Insecurity (10/15/2022) Hunger Screening Food Insecurity - Worry: Never True Food Insecurity - Inability: Never True Transportation Needs: Not on file Physical Activity: Not on file Stress: Not on file Social Connections: Not on file Interpersonal Safety: Not on file Housing Instability: Not on file Review of Systems Review of Systems Constitutional: Positive for malaise/fatigue. HENT: Negative. Eyes: Negative. Respiratory: Negative. Hematologic/Lymphatic: Bruises/bleeds easily. Skin: Negative. Musculoskeletal: Positive for back pain, joint swelling and muscle weakness. Gastrointestinal: Negative. Neurological: Positive for loss of balance. Psychiatric/Behavioral: Negative. Allergic/Immunologic: Negative. CARDIOVASCULAR: Please review HPI. Physical Examination General appearance: Alert, oriented and cooperative. In no acute distress. Skin: Warm and dry to touch. Head: Normocephalic Neck: No JVD, No carotid bruit Respiratory: Clear to auscultation bilaterally, Cardiovascular: RRR with normal S1 and S2 with no murmurs. Musculoskeletal: No peripheral edema. Neurologic: Oriented to time, person and place, affect appropriate. No focal/major motor defects noted. Psychiatric: Appropriate mood, memory and judgement. VITAL SIGNS: BP 98/60 (BP Site: Left Arm, BP Postition: Sitting) Pulse 64 Resp 14 Wt 105.2 kg (232 lb) SpO2 94% BMI 32.36 kg/m No orders of the defined types were placed in this encounter. There are no discontinued medications. [id number] Score: 1 0.6% Stroke risk per year, 0.9% risk of stroke/TIA/systemic embolism IMPRESSIONS/PLAN 1. Nonischemic cardiomyopathy ([facility]) - Echo complete W/O contrast; Future - POCT EKG 2. Chronic systolic heart failure ([facility]) - POCT EKG 3. Nonsustained ventricular tachycardia ([facility]) - POCT EKG 4. Status post ablation of ventricular arrhythmia - POCT EKG 1. Nonischemic cardiomyopathy with resolved left ventricular function. I have asked him to undergo a repeat echocardiogram just to make sure that his LV function remains stable. 2. Chronic systolic heart failure. Compensated on present medication. Patient is not on any diuretics but doing well. Would continue present metoprolol and lisinopril. 3. Nonsustained ventricular tachycardia which is outflow tract related. Status post ablation. No recurrence. Total time spent on this patient was 23 minutes: Preparing to see the patient(e.g. review of tests and prior office/hospital notes) Obtaining and/or reviewing separately obtained history Performing and medical specialty appropriate examination and/or evaluation Counseling and educating the patient/family/caregiver Ordering medications,tests or procedures TODAYS ORDERS Orders Placed This Encounter Procedures POCT EKG Echo complete W/O contrast FOLLOW UP Return in about 1 year (around 04/27/2025). PCP: GAYE HERNANDEZ Referring Physician: Park Yoder APRN-LILIANA [address] [place] [address] Pt would like to schedule testing at [facility]. Pt given echo orders. documented in this encounter [facility] 04-26-2024 Miscellaneous Notes Left message for patient to remind them to bring their most current medication list with them to their appointment. documented in this encounter [facility] 04-26-2024 Telephone encounter Note Left message for patient to remind them to bring their most current medication list with them to their appointment. [facility] 11-04-2023 History of Present illness Narrative Associated [...] from the original note were not included. Miki Benitez is a 67 y.o. male presents with [...] cont current meds documented in this encounter [facility] 10-19-2023 Hospital Discharge instructions Patient Education [...] urethra. Follow these instructions at home: Take mcwh-kmt-funaxac and prescription medicines only as told by [...] provider. Document Revised: 04/02/2022 Document Reviewed: 04/02/2022 [employer] Patient Education 2022 [employer]. Follow Up Care 04/13/2023 16:26:55 With:ANAHI MCDONALD, Delma Ross, URL Address: [facility] [address] [place] [address]- When:Within 1 Year(s) Comments:w/PSA [facility] [place] 04-13-2023 Hospital Discharge instructions Patient Education 04/13/2023 [...] the likelihood that the cancer will spread. Fenton 6 or lower: This indicates that the cancer cells look similar to normal prostate cells (well differentiated). Marixa 7: This indicates that the cancer cells look somewhat similar to normal prostate cells (moderately differentiated). Fenton 8, 9, or 10: This indicates that [...] stress of having cancer. General instructions Take somv-nqf-xjgktdr and prescription medicines only as told by your health care provider. If you have to go to the hospital, notify your cancer specialist (oncologist). Keep all follow-up visits. This is important. Where to find more information [place] [employer]: www.cancer.org [place] [employer]: www.cancer.net National Cancer [place]: www.cancer.gov Contact a health care provider if: [...] provider. Document Revised: 12/11/2021 Document Reviewed: 12/11/2021 [employer] Patient Education 2022 [employer]. Follow Up Care 03/16/2023 14:05:40 With:Delma BRIGGS MD, URL Address: [facility] [address], [place] [address]- [phone] When: Unknown Comments:6 mos w/ PSA and PVR [facility] Jenny 11-03-2022 Hospital Discharge instructions Patient Education 11/03/2022 [...] urethra. Follow these instructions at home: Take cssy-lmd-ehivvdf and prescription medicines only as told by [...] 09/14/2006 Document Revised: 08/09/2019 Document Reviewed: 10/19/2017 [employer] Patient Education 2020 [employer] Follow Up Care 10/13/2022 13:53:44 With:ANAHI MCDONALD, DELANEY Conti Address: [facility] [address] , [place] [address]- When: Unknown [facility] 05-19-2022 Hospital Discharge instructions Patient Education 05/19/2022 16:24:13 Prostatitis, Uvyd-pk-Tpxl Prostatitis Prostatitis is swelling of the prostate gland. The prostate helps to make semen. It is below a man's bladder, in front of the rectum. There are different types of prostatitis. Follow these instructions at home: Take dqin-efc-naypfux and prescription medicines only as told by [...] 03/15/2013 Document Revised: 08/27/2018 Document Reviewed: 06/04/2017 [employer] Patient Education 2020 [employer]. 05/19/2022 16:24:11 Calorie Counting for Weight Loss [...] 09/14/2006 Document Revised: 06/03/2019 Document Reviewed: 08/14/2017 [employer] Patient Education 2020 [employer] Follow Up Care 11/22/2021 12:25:13 With:ANAHI MCDONALD, Delma Ross, URL Address: [address] [place] [address] [place] [address]- Business (1) When:Within 6 Month(s) Comments:w/FESTUS [facility] 12-18-2021 Note OPERATIVE NOTE PREOPERATIVE DIAGNOSIS: Iron [...] to the poor prep. CC: Park Yoder, [facility] Signed and Approved by: DR ARY ARTEAGA . 12/20/2021 11:57:00 [facility] Evaluation + Plan note Future Appointments Appointment Date:05/19/2022 03:15:00 PM Scheduled Provider:Delma BRIGGS MD Location:[facility] Appointment Type:URO Office Visit General Surgery [place] Evaluation + Plan note Future Appointments Appointment Date:11/24/2022 03:30:00 PM Scheduled Provider:Delma BRIGGS MD Location:[facility] Appointment Type:URO Office Visit Diagnostic Tests PendingPSA Total 05/19/22 [facility] Evaluation + Plan note Future Appointments Appointment Date:03/18/2023 08:30:00 AM Scheduled Provider:Delma BRIGGS MD Location:[facility] Appointment Type:URO Office Visit Diagnostic Tests PendingUroVysion Fish and Urine Cyto ([facility]) 11/04/22 [facility] Evaluation + Plan note Future Appointments Appointment Date:03/23/2023 03:00:00 PM Scheduled Provider:Delma BRIGGS MD Location:[facility] Appointment Type:URO Office Visit [facility] Evaluation + Plan note Future Appointments Appointment Date:10/19/2023 02:45:00 PM Scheduled Provider:Delma BRIGGS MD Location:[facility] Appointment Type:URO Office Visit Diagnostic Tests PendingPSA Total 04/13/23 [facility] Evaluation + Plan note Future Appointments Appointment Date:10/24/2024 03:00:00 PM Scheduled Provider:Delma BRIGGS MD Location:[facility] Appointment Type:URO Office Visit Diagnostic Tests PendingPSA Total 10/19/23 [facility] Evaluation + Plan note Future Appointments Appointment Date:10/23/2025 03:15:00 PM Scheduled Provider:Delma BRIGGS MD Location:[facility] Appointment Type:URO Office Visit Diagnostic Tests PendingPSA Total 10/24/24 [facility] Evaluation note Diagnosis Iron deficiency anemia following bariatric surgery- Primary BMI 37.0-37.9, adult Nonischemic cardiomyopathy (CMS/HCC) Other primary cardiomyopathies Primary hypertension (CMS/HCC) Unspecified essential hypertension Chronic systolic heart failure (CMS/HCC) Chronic systolic heart failure H/O bariatric surgery Mixed hyperlipidemia (CMS/HCC) Mixed hyperlipidemia [facility] Diagnosis Iron deficiency anemia following bariatric surgery- Primary BMI 37.0-37.9, adult Nonischemic cardiomyopathy (CMS/HCC) Other primary cardiomyopathies Primary hypertension (CMS/HCC) Unspecified essential hypertension Chronic systolic heart failure (CMS/HCC) Chronic systolic heart failure H/O bariatric surgery Mixed hyperlipidemia (CMS/HCC) Mixed hyperlipidemia Weakness- Primary Other malaise and fatigue DDD (degenerative disc disease), cervical Degeneration of cervical intervertebral disc DDD (degenerative disc disease), lumbar Degeneration of lumbar or lumbosacral intervertebral disc H/O bariatric surgery Paresthesia of both feet Primary hypertension (CMS/HCC) Unspecified essential hypertension DDD (degenerative disc disease), lumbar- Primary Degeneration of lumbar or lumbosacral intervertebral disc Elevated liver function tests Other abnormal blood chemistry Acute cystitis without hematuria Iron deficiency anemia following bariatric surgery Hypocalcemia Weakness- Primary Other malaise and fatigue Thrombocytopenia, unspecified (CMS/HCC) Thrombocytopenia, unspecified Hyperparathyroidism, unspecified (CMS/HCC) Hyperparathyroidism, unspecified Other ventricular tachycardia (CMS/HCC) Elevated liver function tests Other abnormal blood chemistry Iron deficiency anemia following bariatric surgery Primary hypertension (CMS/HCC) Unspecified essential hypertension Elevated parathyroid hormone Vitamin D deficiency Primary hypertension (CMS/HCC)- Primary Unspecified essential hypertension Chronic systolic heart failure (CMS/HCC) Chronic systolic heart failure H/O bariatric surgery BMI 37.0-37.9, adult Elevated liver function tests Other abnormal blood chemistry Vitamin D deficiency Hyperparathyroidism, unspecified (CMS/HCC) Hyperparathyroidism, unspecified Iron deficiency anemia following bariatric surgery Hypocalcemia documented in this encounter [facility]* Diagnosis Weakness- Primary Other malaise and fatigue Thrombocytopenia, unspecified (CMS/HCC) Thrombocytopenia, unspecified Hyperparathyroidism, unspecified (CMS/HCC) Hyperparathyroidism, unspecified Other ventricular tachycardia (CMS/HCC) Elevated liver function tests Other abnormal blood chemistry Iron deficiency anemia following bariatric surgery Primary hypertension (CMS/HCC) Unspecified essential hypertension Elevated parathyroid hormone Vitamin D deficiency documented in this encounter [facility]* Diagnosis Nonischemic cardiomyopathy (CMS-HCC)- Primary Other primary cardiomyopathies Chronic systolic heart failure (CMS-HCC) Chronic systolic heart failure Nonsustained ventricular tachycardia (CMS-HCC) Status post ablation of ventricular arrhythmia Other postprocedural status [facility] Diagnosis Mixed hyperlipidemia- Primary [facility] Diagnosis Mixed hyperlipidemia- Primary [facility] Diagnosis Iron deficiency anemia following bariatric surgery- Primary BMI 37.0-37.9, adult Nonischemic cardiomyopathy (CMS/HCC) Other primary cardiomyopathies Primary hypertension (CMS/HCC) Unspecified essential hypertension Chronic systolic heart failure (CMS/HCC) Chronic systolic heart failure H/O bariatric surgery Mixed hyperlipidemia (CMS/HCC) Mixed hyperlipidemia Weakness- Primary Other malaise and fatigue DDD (degenerative disc disease), cervical Degeneration of cervical intervertebral disc DDD (degenerative disc disease), lumbar Degeneration of lumbar or lumbosacral intervertebral disc H/O bariatric surgery Paresthesia of both feet Primary hypertension (CMS/HCC) Unspecified essential hypertension DDD (degenerative disc disease), lumbar- Primary Degeneration of lumbar or lumbosacral intervertebral disc Elevated liver function tests Other abnormal blood chemistry Acute cystitis without hematuria Iron deficiency anemia following bariatric surgery Hypocalcemia Weakness- Primary Other malaise and fatigue Thrombocytopenia, unspecified (CMS/HCC) Thrombocytopenia, unspecified Hyperparathyroidism, unspecified (CMS/HCC) Hyperparathyroidism, unspecified Other ventricular tachycardia (CMS/HCC) Elevated liver function tests Other abnormal blood chemistry Iron deficiency anemia following bariatric surgery Primary hypertension (CMS/HCC) Unspecified essential hypertension Elevated parathyroid hormone Vitamin D deficiency Primary hypertension (CMS/HCC)- Primary Unspecified essential hypertension Chronic systolic heart failure (CMS/HCC) Chronic systolic heart failure H/O bariatric surgery BMI 37.0-37.9, adult Elevated liver function tests Other abnormal blood chemistry Vitamin D deficiency Hyperparathyroidism, unspecified (CMS/HCC) Hyperparathyroidism, unspecified Iron deficiency anemia following bariatric surgery Hypocalcemia Hypocalcemia- Primary Vitamin D deficiency Secondary hyperparathyroidism (CMS/HCC) Secondary hyperparathyroidism (of renal origin) documented [facility] Narrative No data available for this section General Surgery [facility] Discharge instructions No data available for this section [facility] [place] InstructionsNot on filedocumented in this encounter [facility] filed[facility] filedocumented in this [facility] filedocumented in this [facility] filedocumented in this [facility] filedocumented in this [facility] No data available for this section [facility] Summary Purpose Family History No Family History Records FoundNo Family History Records FoundNo Family History Records FoundNo Family History Records Found No data available for this section No Family History Records Found No data available for this section No Family History Records FoundNo Family History Records Found Advance Directives No Advanced Directives Records FoundNo Advanced Directives Records FoundNo Advanced Directives Records FoundNo Advanced Directives Records FoundNo Advanced Directives Records FoundNo Advanced Directives Records FoundNo Advanced Directives Records Found Reason for Referral Specialty Diagnoses / Procedures Referred By Jewell t Referred To Contact Diagnoses Nonischemic cardiomyopathy ([facility]-H[facility]) Procedures Echo complete W/O contrast Yisel Heart MD [address] [facility] [place] [address] Referral ID Status Reason Start Date Expiration Date V isits Requested Visits Authorized [id number] Pending Review 04/27/2024 04/27/2025 1 1 Additional Source Comments (unrecognized sect ion and content) No Status Records FoundNo Status Records FoundNo Status Records FoundNo Status Records FoundNo Status Records FoundNo Status Records FoundNo Status Records Found INFORMATION SOURCE (unrecogn ized section and content) DATE CREATED AUTHOR 03/18/2018 [facility] DATE CREATED AUTHOR AUTHOR'S ORGANIZ ATION 04/15/2019 [facility] DATE CREATED AUTHOR AUTHOR'S ORGANIZ ATION 12/16/2021 [facility] DATE CREATED AUTHOR AUTHOR'S ORGANIZ ATION 11/28/2022 [facility] DATE CREATED AUTHOR AUTHOR'S ORGANIZ ATION 04/29/2024 [facility] DATE CREATED AUTHOR AUTHOR'S ORGANIZ ATION 10/28/2024 [facility] DATE CREATED AUTHOR AUTHOR'S ORGANIZ ATION 12/01/2024 [facility] dical Specialists EPIC Care Team (unrecognized sect ion and content) Insole And Outsole Splitter Relationship Specialty Start Date End Date Kenny Hartley MD [address] [place] [id number] PCP - General Family Medicine 10/26/23 Insole And Outsole Splitter Relationship Specialty Start Date End Date Kenny Hartley MD [address] [place] [phone] PCP - General Family Medicine 10/26/23 Insole And Outsole Splitter Relationship Specialty Start Date End Date Kenny Hartley MD [address] [place] [phone] PCP - General Family Medicine 10/26/23 Park Yoder NP [address] [place] [phone] [facility] 03/[facility] In[employer] And Outsole Splitter Relationship Specialty Start Date End Date Kenny Hartley MD [address] [place] [phone] PCP - General Family Medicine 10/26/23 Park Yoder NP [address] [place] [address] PCP - [employer] [employer] 03/28/24 Insole And Outsole Splitter Relationship Specialty Start Date End Date Kenny Hartley MD [address] [place] [phone] PCP - General Family Medicine 10/26/23 Park Yoder NP [address] [place] [phone] PCP - [employer] [employer] 03/28/24 Insole And Outsole Splitter Relationship Specialty Start Date End Date Kenny Hartley MD [address] [place] [phone] PCP - General Family Medicine 10/26/23 Park Yoder NP [address] [place] [address] PCP - [employer] [employer] 03/28/24 Insole And Outsole Splitter Relationship Specialty Start Date End Date Kenny Hartley MD [address] [place] [phone] PCP - General Family Medicine 10/26/23 Park Yoder NP [address] [place] [phone] PCP - [employer] [employer] 03/28/24 Insole And Outsole Splitter Relationship Specialty Start Date End Date Kenny Hartley MD [address] [place] [phone] PCP - General Family Medicine 10/26/23 Park Yoder NP [address] [place] [phone] PCP - [employer] [employer] 03/28/24 Insole And Outsole Splitter Relationship Specialty Start Date End Date Kenny Hartley MD [address] [place] [phone] PCP - General Family Medicine 10/26/23 Park Yoder NP [address] [place] [phone] PCP - [employer] [employer] 03/28/24 Insole And Outsole Splitter Relationship Specialty Start Date End Date Park Yoder, [employer] ANALYST [address] [place] [phone] PCP - General Nurse Practitioner 03/15/20 Insole And Outsole Splitter Relationship Specialty Start Date End Date Park Yoder, [employer] ANALYST [address] [place] [phone] PCP - General Nurse Practitioner 03/15/20 Insole And Outsole Splitter Relationship Specialty Start Date End Date Park Yoder, [employer]AC[employer] ANALYST [address] [place] [phone] PCP - General Nurse Practitioner 03/15/20 Insole And Outsole Splitter Relationship Specialty Start Date End Date Park Yoder [facility] [address] [place] [phone] PCP - General Nurse Practitioner 03/15/20 Insole And Outsole Splitter Relationship Specialty Start Date End Date Park Yoder, [facility] PCP - General Nurse Practitioner 03/15/20 Insole And Outsole Splitter Relationship Specialty Start Date End Date Park Yoder [facility] PCP - General Nurse Practitioner 03/15/20 Insole And Outsole Splitter Relationship Specialty Start Date End Date Park Yoder, [facility] PCP - General Nurse Practitioner 03/15/20 Insole And Outsole Splitter Relationship Specialty Start Date End Date Kenny Hartley MD [address] [place] [phone] PCP - General Family Medicine 10/26/23 Park Yoder NP [address] [place] [address] PCP - [employer] [employer] 03/28/24 Insole And Outsole Splitter Relationship Specialty Start Date End Date Kenny Hartley MD [address] [place] [phone] PCP - General Family Medicine 10/26/23 Park Yoder NP [address] [place] [address] PCP - Lay Browne 03/28/24 Reason for Visit (unrecogniz ed section and content) Reason Onset Date Comments Med Refill 02/09/2024 Reason Onset Date Comments Med Refill 02/15/2024 Reason Comments Follow-up 18 month Congestive Heart Failure Reason Comments Med Refill Reason Onset Date Comments Med Refill 05/18/2024 Reason Onset Date Comments Med Refill 05/20/2024 Reason Onset Date Comments Lipitor and fasting labs 06/07/2024 Reason Comments Abnormal Calcium FOR RECORDS PERTAINING TO PATIENTS WHO ARE [...] BE BASED ON THE PRIMARY CLINICAL RECORDS. [email or web address] [facility]. provides no warranty or guarantee of the accuracy or completeness of information in this document.
[2025-04-11 08:02] LABS: Alanine Aminotransferase 57 U/L (16-63); Albumin Globulin Ratio 1.3; Albumin Level 3.7 g/dL (3.4-5.0); Alkaline Phosphatase 110 U/L (46-116); Anion Gap 18.0; Aspartate Amino Transferase 29 U/L (15-37); Blood Urea Nitrogen 41.0 mg/dL (7.0-18.0); Calcium 8.4 mg/dL (8.5-10.1); Carbon Dioxide 18.4 mmol/L (21.0-32.0); Chloride 113 mmol/L (98-107); Estimated GFR (African America >60 (>=60 mL/min/1.73m^2); Estimated GFR (Non-African Ame >60 (>=60 mL/min/1.73m^2); Globulin 2.8 g/dL; Glucose 90 mg/dL (74-106); Potassium 4.4 mmol/L (3.5-5.1); Sodium 145 mmol/L (136-145); Total Protein 6.5 g/dL (6.4-8.2)
[2025-04-11 08:05] LABS: Microalbum Creatinine Ratio Ur 111.3 mg/g (0.0-29.9)
[2025-04-11 08:06] LABS: Hematocrit 39.3 % (42.0-54.0); Hemoglobin 11.8 g/dL (14.0-18.0); Immature Granulocytes Abs Auto 0.02 10^3/uL (0.00-0.03); Immature Granulocytes Pct Auto 0.3 % (0.0-0.5); Lymphocytes Absolute Auto 1.6 10^3/uL (1.2-3.8); Mean Corpuscular HGB Conc 30.0 g/dL (29.9-35.2); Mean Corpuscular Hemoglobin 30.0 pg (25.9-34.0); Mean Corpuscular Volume 100.0 fL (80.0-94.0); Platelet Count 140 10^3/uL (150-450); Red Blood Count 3.93 10^6/uL (4.70-6.10); White Blood Count 6.4 10^3/uL (4.0-11.0)
[2025-04-11 08:16] LABS: Cholesterol 71 mg/dL (<=200); HDL Cholesterol 47 mg/dL (40-60); Thyroid Stimulating Hormone 2.419 uIU/mL (0.358-3.740); Triglycerides 35 mg/dL (<=150); VLDL CHOLESTEROL 7.0 mg/dL
[2025-04-11 08:36] LABS: Iron 112.0 ug/dL (65.0-175.0); Percent Iron Saturation 33.9 %; Total Iron Binding Capacity 330.0 ug/dL (250.0-450.0)
[2025-04-11 08:57] LABS: Glucose Urine UA NEGATIVE (NEGATIVE)
[2025-04-11 09:19] LABS: Cast Seen? NONE SEEN #/LPF (NONE SEEN); Crystals Seen? Seen #/HPF (None Seen)
[2025-04-12 04:07] LABS: Vitamin B12 421 pg/mL (232-1245)
[2025-04-12 05:08] LABS: Transferrin 263 mg/dL (177-329)
== END 2025-04-11 06:59 | disposition home or self-care (01) ==
LOC: LAB 07:00
PROVIDERS: PCP Nurse Practitioner; Visit Provider Nurse Practitioner
DX: I11.0 Hypertensive heart disease with heart failure (principal); I50.22 Chronic systolic (congestive) heart failure; E78.2 Mixed hyperlipidemia; D69.6 Thrombocytopenia, unspecified; D50.8 Other iron deficiency anemias; E55.9 Vitamin D deficiency, unspecified; R79.89 Other specified abnormal findings of blood chemistry
CPT/HCPCS: 36415; 80053; 80061; 81001; 82043; 82306; 82570; 82607; 83540; 83550; 83735; 83970; 84100; 84443; 84466; 85025

== ENCOUNTER 2025-04-11 07:03 | Outpatient (OUT) | payer BC, SELFPAY ==
--- OUTSIDE RECORDS SUMMARY | 2025-04-11 07:08 | XMS_ITS | CCD ---
Author Organization [facility] CliniSymn Care Team Providers Care Adventure Therapist Name Role Phone PHYSICIAN, DEFAULT Unavailable Unavailable PHYSICIAN, DEFAULT Unavailable Unavailable AICHHOLZ, PARK J. Referring Unavailable AICHHOLZ, PARK J. Primary Care Unavailable AICHSILVIO, PARK J Primary Care Physician ANAHI Jackson, DR NGUYỄN Consulting Unavailable BRIGGS ., DR NGUYỄN Admitting Unavailable BRIGGS ., DR NGUYỄN Attending Unavailable AICHHOLZ, TRACTOR ENGINE ASSEMBLER PARK Primary Care Unavailable MISC, DR AYERS Consulting Unavailable MISC, DR AYERS Admitting Unavailable MISC, DR AYERS Attending Unavailable AICHHOLZ, TRACTOR ENGINE ASSEMBLER PARK Primary Care Unavailable AICHHOLZ, TRACTOR ENGINE ASSEMBLER PARK Consulting Unavailable AICHHOLZ, TRACTOR ENGINE ASSEMBLER PARK Primary Care Unavailable BRIGGS ., DR NGUYỄN Admitting Unavailable BRIGGS ., DR NGUYỄN Attending Unavailable ZIEBER, DR CASSIDY Ross Consulting Unavailable ELI DALAL Attending Unavailable ELI DALAL Admitting Unavailable AICHHOLZ, TRACTOR ENGINE ASSEMBLER PARK Primary Care Unavailable JENNIFER DRAKE Consulting Unavailable CAMILLE .DEANNE Consulting UnavailISACC Sidhu Admitting Unavailable ISACC BEJARANO Attending Unavailable AICHHOLZ, TRACTOR ENGINE ASSEMBLER PARK Primary Care Unavailable ISACC BEJARANO Consulting Unavailable AICHHOLZ, TRACTOR ENGINE ASSEMBLER PARK Primary Care Unavailable NILL ., DR MCALLISTER Admitting Unavailable NILL ., DR MCALLISTER Attending Unavailable NILL ., DR MCALLISTER Consulting Unavailable AICHHOLZ, TRACTOR ENGINE ASSEMBLER PARK Primary Care Unavailable NILL ., DR MCALLISTER Admitting Unavailable NILL ., DR MCALLISTER Attending Unavailable AGUBJOHN, GRACE Consulting Unavailable JUAN ORO Consulting Unavailable AICHHOLZ, TRACTOR ENGINE ASSEMBLER PARK Consulting Unavailable AICHHOLZ, TRACTOR ENGINE ASSEMBLER PARK Primary Care Unavailable AICHHOLZ, TRACTOR ENGINE ASSEMBLER PARK Admitting Unavailable AICHHOLZ, TRACTOR ENGINE ASSEMBLER PARK Attending Unavailable AICHHOLZ, TRACTOR ENGINE ASSEMBLER PARK Consulting Unavailable AICHHOLZ, TRACTOR ENGINE ASSEMBLER PARK Admitting Unavailable AICHHOLZ, TRACTOR ENGINE ASSEMBLER PARK Attending Unavailable AICHHOLZ, TRACTOR ENGINE ASSEMBLER PARK Primary Care Unavailable Kenny Hartley MD Primary Care Provider YISEL HEART Attending Unavailable TATIANAHPARK ANGUIANO Referring Unavailable AICHPARK ANGUIANO J Primary Care Unavailable Aichholz WORKSHOP MANAGER, Park Unavailable Delma BRIGGS Attending Unavailable Delma BRIGGS Attending Unavailable Aichholz [facility], aPrk Banuelos Primary Care Provider Aichholmichelle [facility], Park Banuelos Primary Care Provider Aicholmichelle [facility], Park Banuelos Primary Care Provider VIJAY ATKINS [...] every week ergocalciferol (Vitamin D2) 1.25 MG (67203 UT) capsule Indications: Other specified abnormal findings of blood chemistry Take 1 capsule by mouth once a week 12 capsule 1 11/14/2024 Active Start: 06-01-2024 take 1 capsule by mo uth every week ergocalciferol (Vitamin D2) 1.25 MG (03485 UT) capsule Take 50,000 Units by mouth [...] procedure, # 2 tab(s), Refills(s) 0, Pharmacy: [id number], [phone], cm, 05/19/22 16:10:00 [...] 4 04-05-2024 Chronic Other aftercare (1 source) [facility] (current) use of aspirin; Translations: [CUSTODIAL CURRENT USE OF ASPIRIN] Onset: 2 Episodic Other aftercare (1 source) Other intermediate card tender (current) drug therapy; Translations: [OTH BUSINESS DEVELOPMENT ASSOCIATE CURRENT DRUG THERAPY] Onset: 2 Episodic Other [...] MD, URL [facility] [address] [place] [address] [phone] Additional Instructions: 1 yr w/ PSA and [...] (more content not included)... Normal [facility] Comment on above: Result Comment: Elec tronically Signed By: Delma BRIGGS MD\.br\Date and Time Signed: 10/24/24 17:17 EST\.br\Electronically Co-Signed By: Shala Soares\.br\Date and Time Co-Signed: 10/24/24 17:16 EST MHPT PSA, DIAGNOSTICon 10-21 PROSTATE SPECIFIC ANTIGEN DX 2.13 ng/mL NINF - 4.00 ng/mL [facility] Healthcar e ALL CBC WITH AUTO DIFFon BASOPHILS ABSOLUTE AUTO 0.1 [facility] Basophils/100 WBC (Bld) 0.9 % 0.2 - 2.0 % [facility] Eosinophils/100 WBC (Bld) 3.3 % 0.9 - 7.0 % [facility] Erythrocyte distribution width (RBC) [Ratio] 14.8 % 11.0 - 15.0 % [facility] Hematocrit (Bld) [Volume fraction] 38.5 % Low 42.0 - 54.0 % [facility] Healthcar e Hemoglobin (Bld) [Mass/Vol] 11.6 g/dL Low 14.0 - 18.0 g/dL [facility] IMMATURE GRANULOCYTES ABS AUTO 0.01 [facility] Immature granulocytes/100 WBC (Bld) 0.2 % 0.0 - 0.5 % [facility] Interpretation and review of laboratory results Abnormal [facility] LYMPHOCYTES ABSOLUTE AUTO 1.9 [facility] Lymphocytes/100 WBC (Bld) 29.1 % 20.5 - 60.0 % [facility] MCH (RBC) [Entitic mass] 31.5 pg 25.9 - 34.0 pg [facility] MCHC (RBC) [Mass/Vol] 30.1 g/dL 29.9 - 35.2 g/dL [facility] MCV (RBC) [Entitic vol] 104.6 fL High 80.0 - 94.0 fL [facility] MONOCYTES ABSOLUTE AUTO 0.4 [facility] Monocytes/100 WBC (Bld) 6.9 % 1.7 - 12.0 % [facility] NEUTROPHILS ABSOLUTE AUTO 3.8 [facility] Neutrophils/100 WBC (Bld) 59.6 % 43.0 - 75.0 % [facility] Platelet mean volume (Bld) [Entitic vol] 10.6 fL 9.5 - 13.5 fL [facility] EO # 0.2 [facility] TB PLT 140 Low [facility] Healthcar e TB RBC 3.68 Low [facility] TB WBC 6.4 [facility] ALL LIPID PROFILE (FASTING)o n 06-07-2024 CHOL [facility] RATIO [facility].4 [facility] Comment on above: 3.3 - 4.4 LOW RISK 4.4 - 7.1 AVERAGE RISK 7.1 - 11.0 MODERATE RISK >11.0 HIGH RISK Cholesterol [Mass/Vol] 68 mg/dL NINF - 200 mg/dL [facility] Cholesterol in HDL [Mass/Vol] 47 mg/dL 40 - 60 mg/dL [facility] Comment on above: > or =60 mg/dl - LOW CARDIOVASCULAR RISK <40 mg/dl - HIGH CARDIOVASCULAR RISK Magnesium [Mass/Vol] 13.8 mg/dL [facility] Comment on above: <100 mg/dl OPTIMAL 100-129 mg/dl NEAR OR ABOVE OPTIMAL 130-159 mg/dl BORDERLINE HIGH 160-189 mg/dl HIGH >190 mg/dl VERY HIGH Magnesium [Mass/Vol] 7.2 mg/dL [facility] Triglyceride [Mass/Vol] 36 mg/dL NINF - 150 mg/dL [facility] Healthcar e ER URINE PROFILEon 2 Bilirubin Ql (U) Negative Normal NEGATIVE [facility] Comment on above: Performed By: #### U MICRO, ERUR #### [facility] [address] [place] [address] Dr. Santhosh Francois Clarity (U) CLEAR Normal CLEAR [facility] Comment on above: Performed By: #### U MICRO, ERUR #### [facility] [address] [place] [address] Dr. Santhosh Francois Color (U) LT. YELLOW Normal YELLOW [facility] Comment on above: Performed By: #### U MICRO, ERUR #### [facility] [address] [place] [address] Dr. Santhosh Francois ERUAHD A micrscopic examination will be performed if indicated. Normal [facility] Comment on above: Performed By: #### U MICRO, ERUR #### [facility] [address] [address] [address] Santhosh Francois Glucose Ql (U) Negative Normal NEGATIVE [facility] Comment on above: Performed By: #### U MICRO, ERUR #### [facility] [address] [address] [address] Santhosh Francois Hemoglobin Ql (U) LARGE Abnormal NEGATIVE [facility] Comment on above: Performed By: #### U MICRO, ERUR #### [facility] [address] [address] [address] Santhosh Francois Ketones Ql (U) Negative Normal NEGATIVE [facility] Comment on above: Performed By: #### U MICRO, ERUR #### [facility] [address] [place] [address] Dr. Santhosh Francois LEUKOCYTES Negative Normal NEGATIVE [facility] Comment on above: Performed By: #### U MICRO, ERUR #### [facility] [address] [place] [address] Dr. Santhosh Francois Nitrite Ql (U) Negative Normal NEGATIVE [facility] Comment on above: Performed By: #### U MICRO, ERUR #### [facility] [address] [place] [address] Dr. Santhosh Francois pH (U) 5.0 [pH] Normal 5-9 [facility] Comment on above: Performed By: #### U MICRO, ERUR #### [facility] [address] [place] [address] Dr. Santhosh Francois SPEC GRAVITY 1.010 Normal 1.005-<=1.025 [facility] Comment on above: Performed By: #### U MICRO, ERUR #### [facility] [address] [place] [address] Dr. Santhosh Francois UA PROTEIN TRACE Normal NEGATIVE/ TRACE [facility] Comment on above: Performed By: #### U MICRO, ERUR #### [facility] [address] [place] [address] Dr. Santhosh Francois UR MICRO IND INDICATED Normal [facility] Comment on above: Performed By: #### U MICRO, ERUR #### [facility] [address] [place] [address] Dr. Santhosh Francois Urobilinogen Qn (U) 0.2 {Malini'U}/dL Normal 0.2 - 1. 0 [facility] Comment on above: Performed By: #### U MICRO, ERUR #### [facility] [address] [place] [address] Dr. Santhosh Francois URINE MICROSCOPIC ONLYon BACTERIA NONE SEEN Normal NONE SEEN [facility] Comment on above: Performed By: #### C BC #### [facility] [address] [place] [address] Dr. Santhosh Francois Bacteria identified Cx Nom (U) NOT INDICATED Normal [facility] Comment on above: Performed By: #### C BC #### [facility] [address] [place] [address] Dr. Santohsh Francois CAST NONE SEEN Normal NONE SEEN [facility] Comment on above: Performed By: #### C BC #### [facility] [address] [address] [address] Santhosh Francois Crystals LM Nom (Urine sed) NONE SEEN Normal NONE SEEN [facility] Comment on above: Performed By: #### C BC #### [facility] [address] [address] [address] Santhosh Francois Epithelial cells LM Ql (Urine sed) RARE Normal NONE SEEN /RARE [facility] Comment on above: Performed By: #### C BC #### [facility] [address] [address] [address] Santhosh Francois MUCOUS NONE SEEN Normal NONE SEEN [facility] Comment on above: Performed By: #### C BC #### [facility] [address] [place] [address] Dr. Santhosh Francois RBC 10-20 Abnormal 0-2 [facility] Comment on above: Performed By: #### C BC #### [facility] [address] [place] [address] Dr. Santhosh Francois WBC NONE SEEN Normal NONE SEEN [facility] Comment on above: Performed By: #### C BC #### [facility] [address] [place] [address] Dr. Santhosh Francois LIPID PROFILEon 05-16-2022 CHOL-HDL RATIO NORM SEE BELOW Normal [facility] Comment on above: Result Comment: 3.3 - 4.4 LOW RISK 4.4 - 7.1 AVERAGE RISK 7.1 - 11.0 MODERATE RISK >11.0 HIGH RISK Performed By: #### C BC #### [facility] [address] [place] [address] Dr. Santhosh Francois Cholesterol [Mass/Vol] 58 mg/dL Normal <=200 [facility] Comment on above: Performed By: #### C BC #### [facility] [address] [place] [address] Dr. Santhosh Francois Cholesterol in HDL [Mass/Vol] 38 mg/dL Critically low 40-60 [facility] Comment on above: Performed By: #### C BC #### [facility] [address] [address] [address] Santhosh Francois Cholesterol in LDL [Mass/Vol] 14.0 mg/dL Normal [facility] Comment on above: Performed By: #### C BC #### [facility] [address] [address] [address] Santhosh Francois Cholesterol.total/Ch olesterol in HDL [Mass ratio] 1.5 {ratio} Normal [facility] Comment on above: Performed By: #### C BC #### [facility] [address] [address] [address] Santhosh Francois HDL NORMAL > or = 60 mg/dl - LOW CARDIOVASCULAR RISK <40 mg/dl - HIGH CARDIOVASCULAR RISK Normal [facility] Comment on above: Performed By: #### C BC #### [facility] [address] [place] [address] Dr. Santhosh Francois LDL CALC NORMAL SEE BELOW Normal [facility] Comment on above: Result Comment: <100 mg/dl OPTIMAL 100 - 129 mg/dl NEAR OR ABOVE OPTIMAL 130 - 159 mg/dl BORDERLINE HIGH 160 - 189 mg/dl HIGH >190 mg/dl VERY HIGH Performed By: #### C BC #### [facility] [address] [place] [address] Dr. Santhosh Francois Triglyceride [Mass/Vol] 30 mg/dL Normal <=150 [facility] Comment on above: Performed By: #### C BC #### [facility] [address] [place] [address] Dr. Santhosh Francois VLDL CALC 6.0 mg/dL Normal [facility] Comment on above: Performed By: #### C BC #### [facility] [address] [place] [address] Dr. Santhosh Francois PROF 14(COMP METB)on 022 Albumin [Mass/Vol] 3.6 g/dL Normal 3.4-5.0 [facility] Comment on above: Performed By: #### C BC #### [facility] [address] [place] [address] Dr. Santhosh Francois Albumin/Globulin [Mass ratio] 1.1 {ratio} Normal [facility] Comment on above: Performed By: #### C BC #### [facility] [address] [address] [address] Santhosh Francois ALP [Catalytic activity/Vol] 145 U/L Critically high 46-116 [facility] Comment on above: Performed By: #### C BC #### [facility] [address] [address] [address] Santhosh Francois ALT [Catalytic activity/Vol] 102 U/L Critically high 16-63 [facility] Comment on above: Performed By: #### C BC #### [facility] [address] [address] [address] Santhosh Francois Anion gap [Moles/Vol] 12.7 mmol/L Normal [facility] Comment on above: Performed By: #### C BC #### [facility] [address] [address] [address] Santhosh Francois AST [Catalytic activity/Vol] 68 U/L Critically high 15-37 [facility] Comment on above: Performed By: #### C BC #### [facility] [address] [address] [address] Santhosh Francois Bilirubin [Mass/Vol] 1.0 mg/dL Normal 0.2-1.0 [facility] Comment on above: Performed By: #### C BC #### [facility] [address] [address] [address] Santhosh Francois Calcium [Mass/Vol] 8.0 mg/dL Critically low 8.5-10.1 [facility] Comment on above: Performed By: #### C BC #### [facility] [address] [address] [address] Santhosh Francois Chloride [Moles/Vol] 111 mmol/L Critically high 98-107 [facility] Comment on above: Performed By: #### C BC #### [facility] [address] [address] [address] Santhosh Francois CO2 [Moles/Vol] 20.6 mmol/L Critically low 21.0-32.0 [facility] Comment on above: Performed By: #### C BC #### [facility] [address] [address] [address] Santhosh Francois Creatinine [Mass/Vol] 0.96 mg/dL Normal 0.70-1.30 [facility] Comment on above: Performed By: #### C BC #### [facility] [address] [address] [address] Santhosh Francois EGFR-AF MOROCCAN >60 Normal >=60 [facility] Comment on above: Performed By: #### C BC #### [facility] [address] [address] [address] Santhosh Francois EGFR-NON AF MOROCCAN >60 Normal >=60 [facility] Comment on above: Performed By: #### C BC #### [facility] [address] [place] [address] Dr. Santhosh Francois Globulin (S) [Mass/Vol] 3.2 g/dL Normal [facility] Comment on above: Performed By: #### C BC #### [facility] [address] [place] [address] Dr. Santhosh Francois Glucose [Mass/Vol] 88 mg/dL Normal 74-106 [facility] Comment on above: Performed By: #### C BC #### [facility] [address] [place] [address] Dr. Santhosh Francois Potassium [Moles/Vol] 4.3 mmol/L Normal 3.5-5.1 [facility] Comment on above: Performed By: #### C BC #### [facility] [address] [place] [address] Dr. Santhosh Francois Protein [Mass/Vol] 6.8 g/dL Normal 6.4-8.2 [facility] Comment on above: Performed By: #### C BC #### [facility] [address] [place] [address] Dr. Santhosh Francois Sodium [Moles/Vol] 140 mmol/L Normal 136-145 [facility] Comment on above: Performed By: #### C BC #### [facility] [address] [place] [address] Dr. Santhosh Francois Urea nitrogen [Mass/Vol] 26.0 mg/dL Critically high 7.0-18.0 [facility] Comment on above: Performed By: #### C BC #### [facility] [address] [place] [address] Dr. Santhosh Francois Urea nitrogen/Creatinine [Mass ratio] 27.1 mg/mg Normal [facility] Comment on above: Performed By: #### C BC #### [facility] [address] [place] [address] Dr. Santhosh Francois CBC AUTO DIFFon 04-30-2022 BASO # 0.0 103/ul Normal 0.0-0.1 [facility] Comment on above: Performed By: #### C BC #### [facility] [address] [place] [address] Dr. Santhosh Francois Basophils/100 WBC (Bld) 0.5 % Normal 0.2-2.0 [facility] Comment on above: Performed By: #### C BC #### [facility] [address] [place] [address] Dr. Santhosh Francois EO # 0.2 103/ul Normal 0.0-0.7 [facility] Comment on above: Performed By: #### C BC #### [facility] [address] [place] [address] Dr. Santhosh Francois Eosinophils/100 WBC (Bld) 2.9 % Normal 0.9-7.0 [facility] Comment on above: Performed By: #### C BC #### [facility] [address] [place] [address] Dr. Santhosh Francois Erythrocyte distribution width (RBC) [Ratio] 14.9 % Normal 11.0-15.0 [facility] Comment on above: Performed By: #### C BC #### [facility] [address] [place] [address] Dr. Santhosh Francois Hematocrit (Bld) [Volume fraction] 39.1 % Critically low 42.0-54.0 [facility] Comment on above: Performed By: #### C BC #### [facility] [address] [place] [address] Dr. Santhosh Francois Hemoglobin (Bld) [Mass/Vol] 12.2 g/dL Critically low 14.0-18.0 [facility] Comment on above: Performed By: #### C BC #### [facility] [address] [place] [address] Dr. Santhosh Francois IG # 0.01 10e3/ul Normal 0.00-0.03 [facility] Comment on above: Performed By: #### C BC #### [facility] [address] [place] [address] Dr. Santhosh Francois IG % 0.2 % Normal 0.0-0.5 [facility] Comment on above: Performed By: #### C BC #### [facility] [address] [place] [address] Dr. Santhosh Francois LYMPH # 2.0 103/ul Normal 1.2-3.8 [facility] Comment on above: Performed By: #### C BC #### [facility] [address] [place] [address] Dr. Santhosh Francois Lymphocytes/100 WBC (Bld) 32.6 % Normal 20.5-60.0 [facility] Comment on above: Performed By: #### C BC #### [facility] [address] [place] [address] Dr. Santhosh Francois MANUAL DIFF REQ NO Normal [facility] Comment on above: Performed By: #### C BC #### [facility] [address] [place] [address] Dr. Santhosh Francois MCH (RBC) [Entitic mass] 29.9 pg Normal 25.9-34.0 [facility] Comment on above: Performed By: #### C BC #### [facility] [address] [place] [address] Dr. Santhosh Francois MCHC (RBC) [Mass/Vol] 31.2 g/dL Normal 29.9-35.2 [facility] Comment on above: Performed By: #### C BC #### [facility] [address] [place] [address] Dr. Santhosh Francois MCV (RBC) [Entitic vol] 95.8 fL Critically high 80.0-94.0 [facility] Comment on above: Performed By: #### C BC #### [facility] [address] [address] [address] Santhosh Francois MONO # 0.5 103/ul Normal 0.3-0.8 [facility] Comment on above: Performed By: #### C BC #### [facility] [address] [address] [address] Santhosh Francois Monocytes/100 WBC (Bld) 7.9 % Normal 1.7-12.0 [facility] Comment on above: Performed By: #### C BC #### [facility] [address] [place] [address] Dr. Santhosh Francois NEUT # 3.5 103/ul Normal 1.4-6.5 [facility] Comment on above: Performed By: #### C BC #### [facility] [address] [place] [address] Dr. Santhosh Francois Neutrophils/100 WBC (Bld) 55.9 % Normal 43.0-75.0 [facility] Comment on above: Performed By: #### C BC #### [facility] [address] [place] [address] Dr. Santhosh Francois Platelet mean volume (Bld) [Entitic vol] 10.6 fL Normal 9.5-13.5 [facility] Comment on above: Performed By: #### C BC #### [facility] [address] [place] [address] Dr. Santhosh Francois PLT 125 103/ul Critically low 150-450 [facility] Comment on above: Performed By: #### C BC #### [facility] [address] [place], [place] [id number] Dr. Santhosh Francois RBC 4.08 106/ul Critically low 4.70-6.10 [facility] Comment on above: Performed By: #### C BC #### [facility] [address] [place] [address] Dr. Santhosh Francois WBC 6.2 103/ul Normal 4.0-11.0 [facility] Comment on above: Performed By: #### C BC #### [facility] [address] [address] [address] ABD/PELVIS WO CONon [...] CASSIDY DILLON Date: 2022-04-30 18:05 Normal [facility] CULTURE URINEon 04-30-2022 CULTURE URINE Culture Observations: NO GROWTH. Normal [facility] Comment on above: Performed By: #### U RCX #### [facility] [address] [place] [address] Dr. Santhosh Francois ER URINE PROFILEon 2 Bilirubin Ql (U) Unable to perform testing due to color interference. Abnormal NEGATIVE [facility] Comment on above: Performed By: #### MICHELE EASONRO #### [facility] [address] [place] [address] Dr. Santhosh Francois Clarity (U) TURBID Abnormal CLEAR [facility] Comment on above: Performed By: #### MICHELE EASONRO #### [facility] [address] [place] [address] Dr. Santhosh Francois Color (U) RED Abnormal YELLOW [facility] Comment on above: Performed By: #### MICHELE EASONRO #### [facility] [address] [place] [address] Dr. Santhosh PALACIOS A micrscopic examination will be performed if indicated. Normal [facility] Comment on above: Performed By: #### MICHELE EASONRO #### [facility] [address] [place] [address] Dr. Santhosh Francois Glucose Ql (U) Unable to perform testing due to color interference. Abnormal NEGATIVE [facility] Comment on above: Performed By: #### MICHELE EASONRO #### [facility] [address] [place] [address] Dr. Santhosh Francois Hemoglobin Ql (U) Unable to perform testing due to color interference. Abnormal NEGATIVE [facility] Comment on above: Performed By: #### MICHELE EASONRO #### [facility] [address] [place] [address] Dr. Santhosh Francois Ketones Ql (U) Unable to perform testing due to color interference. Abnormal NEGATIVE [facility] Comment on above: Performed By: #### MICHELE EASONRO #### [facility] [address] [place] [address] Dr. Santhosh Francois LEUKOCYTES Unable to perform testing due to color interference. Abnormal NEGATIVE [facility] Comment on above: Performed By: #### MICHELE EASONRO #### [facility] [address] [place] [address] Dr. Santhosh Francois Nitrite Ql (U) Unable to perform testing due to color interference. Abnormal NEGATIVE [facility] Comment on above: Performed By: #### NICOL EASON #### [facility] [address] [place] [address] Dr. Santhosh Francois pH (U) 6.0 [pH] Normal 5-9 [facility] Comment on above: Performed By: #### NICOL EASON #### [facility] [address] [place] [address] Dr. Santhosh Francois SPEC GRAVITY 1.025 Normal 1.005-<=1.025 [facility] Comment on above: Performed By: #### NICOL EASON #### [facility] [address] [place] [address] Dr. Santhosh Francois UA PROTEIN Unable to perform testing due to color interference. Normal NEGATIVE/ TRACE [facility] Comment on above: Performed By: #### NICOL EASON #### [facility] [address] [place] [address] Dr. Santhosh Francois UR MICRO IND INDICATED Normal [facility] Comment on above: Performed By: #### NICOL EASON #### [facility] [address] [place] [address] Dr. Santhosh Francois UROBILINOGEN Unable to perform testing due to color interference. Normal 0.2 - 1.0 [facility] Comment on above: Performed By: #### NICOL EASON #### [facility] [address] [place] [address] Dr. Santhosh Francois PROF CHEM 8 (BAS METB)on Anion gap [Moles/Vol] 12.6 mmol/L Normal [facility] Comment on above: Performed By: #### B MP #### [facility] [address] [place] [address] Dr. Santhosh Francois Calcium [Mass/Vol] 7.7 mg/dL Critically low 8.5-10.1 [facility] Comment on above: Performed By: #### B MP #### [facility] [address] [address] [address] Santhosh Francois Chloride [Moles/Vol] 114 mmol/L Critically high 98-107 [facility] Comment on above: Performed By: #### B MP #### [facility] [address] [address] [address] Santhosh Francois CO2 [Moles/Vol] 21.1 mmol/L Normal 21.0-32.0 [facility] Comment on above: Performed By: #### B MP #### [facility] [address] [address] [address] Santhosh Francois Creatinine [Mass/Vol] 1.12 mg/dL Normal 0.70-1.30 [facility] Comment on above: Performed By: #### B MP #### [facility] [address] [address] [address] Santhosh Francois EGFR-AF MOROCCAN >60 Normal >=60 [facility] Comment on above: Performed By: #### B MP #### [facility] [address] [address] [address] Santhosh Francois EGFR-NON AF MOROCCAN >60 Normal >=60 [facility] Comment on above: Performed By: #### B MP #### [facility] [address] [address] [address] Santhosh Francois Glucose [Mass/Vol] 90 mg/dL Normal 74-106 [facility] Comment on above: Performed By: #### B MP #### [facility] [address] [address] [address] Santhosh Francois Potassium [Moles/Vol] 3.7 mmol/L Normal 3.5-5.1 [facility] Comment on above: Performed By: #### B MP #### [facility] [address] [address] [address] Santhosh Francois Sodium [Moles/Vol] 144 mmol/L Normal 136-145 [facility] Comment on above: Performed By: #### B MP #### [facility] [address] [address] [address] Santhosh Francois Urea nitrogen [Mass/Vol] 23.0 mg/dL Critically high 7.0-18.0 [facility] Comment on above: Performed By: #### B MP #### [facility] [address] [place] [address] Dr. Santhosh Francois Urea nitrogen/Creatinine [Mass ratio] 20.5 mg/mg Normal [facility] Comment on above: Performed By: #### B MP #### [facility] [address] [place] [address] Dr. Santhosh Francois URINE MICROSCOPIC ONLYon BACTERIA NONE SEEN Normal NONE SEEN [facility] Comment on above: Performed By: #### E RUR, UMICRO #### [facility] [address] [place] [address] Dr. Santhosh Francois Bacteria identified Cx Nom (U) NOT INDICATED Normal [facility] Comment on above: Performed By: #### E RUR, UMICRO #### [facility] [address] [place] [address] Dr. Santhosh Francois CAST NONE SEEN Normal NONE SEEN [facility] Comment on above: Performed By: #### E RUR, UMICRO #### [facility] [address] [place] [address] Dr. Santhosh Francois Crystals LM Nom (Urine sed) NONE SEEN Normal NONE SEEN [facility] Comment on above: Performed By: #### E RUR, UMICRO #### [facility] [address] [place] [address] Dr. Santhosh Francois Epithelial cells LM Ql (Urine sed) NONE SEEN Normal NONE SEEN /RARE [facility] Comment on above: Performed By: #### E RUR, UMICRO #### [facility] [address] [place] [address] Dr. Santhosh Francois MUCOUS NONE SEEN Normal NONE SEEN [facility] Comment on above: Performed By: #### E RUR, UMICRO #### [facility] [address] [place] [address] Dr. Santhosh Francois RBC (U) [#/Vol] /uL Abnormal 0-2 [facility] Comment on above: Performed By: #### E RUR, UMICRO #### [facility] [address] [address] [address] Santhosh Francois WBC 10-20 Abnormal NONE SEEN [facility] Comment on above: Performed By: #### E NICOL NAPOLES #### [facility] [address] [address] [address] Santhosh Francois CBC AUTO DIFFon 03-07-2022 BASO # 0.1 103/ul Normal 0.0-0.1 [facility] Comment on above: Performed By: #### C BC #### [facility] [address] [place] [address] Dr. Santhosh Francois Basophils/100 WBC (Bld) 0.8 % Normal 0.2-2.0 [facility] Comment on above: Performed By: #### C BC #### [facility] [address] [place] [address] Dr. Santhosh Francois EO # 0.1 103/ul Normal 0.0-0.7 [facility] Comment on above: Performed By: #### C BC #### [facility] [address] [place] [address] Dr. Santhosh Francois Eosinophils/100 WBC (Bld) 1.9 % Normal 0.9-7.0 [facility] Comment on above: Performed By: #### C BC #### [facility] [address] [place] [address] Dr. Santhosh Francois Erythrocyte distribution width (RBC) [Ratio] 16.4 % Critically high 11.0-15.0 [facility] Comment on above: Performed By: #### C BC #### [facility] [address] [place] [address] Dr. Santhosh Francois Hematocrit (Bld) [Volume fraction] 43.0 % Normal 42.0-54.0 [facility] Comment on above: Performed By: #### C BC #### [facility] [address] [place] [address] Dr. Santhosh Francois Hemoglobin (Bld) [Mass/Vol] 13.4 g/dL Critically low 14.0-18.0 [facility] Comment on above: Performed By: #### C BC #### [facility] [address] [place] [address] Dr. Santhosh Francois IG # 0.02 10e3/ul Normal 0.00-0.03 [facility] Comment on above: Performed By: #### C BC #### [facility] [address] [place] [address] Dr. Santhosh Francois IG % 0.3 % Normal 0.0-0.5 [facility] Comment on above: Performed By: #### C BC #### [facility] [address] [place] [address] Dr. Santhosh Francois LYMPH # 1.8 103/ul Normal 1.2-3.8 [facility] Comment on above: Performed By: #### C BC #### [facility] [address] [place] [address] Dr. Santhosh Francois Lymphocytes/100 WBC (Bld) 29.2 % Normal 20.5-60.0 [facility] Comment on above: Performed By: #### C BC #### [facility] [address] [place] [address] Dr. Santhosh Francois MANUAL DIFF REQ NO Normal [facility] Comment on above: Performed By: #### C BC #### [facility] [address] [place] [address] Dr. Santhosh Francois MCH (RBC) [Entitic mass] 30.5 pg Normal 25.9-34.0 [facility] Comment on above: Performed By: #### C BC #### [facility] [address] [place] [address] Dr. Santhosh Francois MCHC (RBC) [Mass/Vol] 31.2 g/dL Normal 29.9-35.2 [facility] Comment on above: Performed By: #### C BC #### [facility] [address] [place] [address] Dr. Santhosh Francois MCV (RBC) [Entitic vol] 97.9 fL Critically high 80.0-94.0 [facility] Comment on above: Performed By: #### C BC #### [facility] [address] [address] [address] Santhosh Francois MONO # 0.4 103/ul Normal 0.3-0.8 [facility] Comment on above: Performed By: #### C BC #### [facility] [address] [address] [address] Santhosh Francois Monocytes/100 WBC (Bld) 6.3 % Normal 1.7-12.0 [facility] Comment on above: Performed By: #### C BC #### [facility] [address] [address] [address] Santhosh Francois NEUT # 3.8 103/ul Normal 1.4-6.5 [facility] Comment on above: Performed By: #### C BC #### [facility] [address] [place] [address] Dr. Santhosh Francois Neutrophils/100 WBC (Bld) 61.5 % Normal 43.0-75.0 [facility] Comment on above: Performed By: #### C BC #### [facility] [address] [place] [address] Dr. Santhosh Francois Platelet mean volume (Bld) [Entitic vol] 10.5 fL Normal 9.5-13.5 [facility] Comment on above: Performed By: #### C BC #### [facility] [address] [place] [address] Dr. Santhosh Francois PLT 148 103/ul Critically low 150-450 [facility] Comment on above: Performed By: #### C BC #### [facility] [address] [place] [address] Dr. Santhosh Francois RBC 4.39 106/ul Critically low 4.70-6.10 [facility] Comment on above: Performed By: #### C BC #### [facility] [address] [place] [address] Dr. Santhosh Francois WBC 6.2 103/ul Normal 4.0-11.0 [facility] Comment on above: Performed By: #### C BC #### [facility] [address] [place] [address] Dr. Santhosh Francois IRONon 03-07-2022 Iron [Mass/Vol] 125.0 ug/dL Normal 65.0-175.0 [facility] Comment on above: Performed By: #### I JAN #### [facility] [address] [place] [address] Dr. Santhosh Francois CBC AUTO DIFFon 12-03-2021 BASO # 0.0 103/ul Normal 0.0-0.1 [facility] Comment on above: Performed By: #### C BC #### [facility] [address] [place] [address] Dr. Santhosh Francois Basophils/100 WBC (Bld) 0.7 % Normal 0.2-2.0 [facility] Comment on above: Performed By: #### C BC #### [facility] [address] [place] [address] Dr. Santhosh Francois EO # 0.2 103/ul Normal 0.0-0.7 [facility] Comment on above: Performed By: #### C BC #### [facility] [address] [place] [address] Dr. Santhosh Francois Eosinophils/100 WBC (Bld) 3.1 % Normal 0.9-7.0 [facility] Comment on above: Performed By: #### C BC #### [facility] [address] [place] [address] Dr. Santhosh Francois Hematocrit (Bld) [Volume fraction] 40.4 % Critically low 42.0-54.0 [facility] Comment on above: Performed By: #### C BC #### [facility] [address] [place] [address] Dr. Santhosh Francois Hemoglobin (Bld) [Mass/Vol] 11.5 g/dL Critically low 14.0-18.0 [facility] Comment on above: Performed By: #### C BC #### [facility] [address] [place] [address] Dr. Santhosh Francois IG # 0.01 10e3/ul Normal 0.00-0.03 [facility] Comment on above: Performed By: #### C BC #### [facility] [address] [place] [address] Dr. Santhosh Francois IG % 0.2 % Normal 0.0-0.5 [facility] Comment on above: Performed By: #### C BC #### [facility] [address] [place] [address] Dr. Santhosh Francois LYMPH # 2.0 103/ul Normal 1.2-3.8 [facility] Comment on above: Performed By: #### C BC #### [facility] [address] [place] [address] Dr. Santhosh Francois Lymphocytes/100 WBC (Bld) 33.9 % Normal 20.5-60.0 [facility] Comment on above: Performed By: #### C BC #### [facility] [address] [place] [address] Dr. Santhosh Francois MANUAL DIFF REQ NO Normal [facility] Comment on above: Performed By: #### C BC #### [facility] [address] [place] [address] Dr. Santhosh Francois MCH (RBC) [Entitic mass] 24.1 pg Critically low 25.9-34.0 [facility] Comment on above: Performed By: #### C BC #### [facility] [address] [place] [address] Dr. Santhosh Francois MCHC (RBC) [Mass/Vol] 28.5 g/dL Critically low 29.9-35.2 [facility] Comment on above: Performed By: #### C BC #### [facility] [address] [place] [address] Dr. Santhosh Francois MCV (RBC) [Entitic vol] 84.5 fL Normal 80.0-94.0 [facility] Comment on above: Performed By: #### C BC #### [facility] [address] [place] [address] Dr. Santhosh Francois MONO # 0.4 103/ul Normal 0.3-0.8 [facility] Comment on above: Performed By: #### C BC #### [facility] [address] [place] [address] Dr. Santhosh Francois Monocytes/100 WBC (Bld) 7.7 % Normal 1.7-12.0 [facility] Comment on above: Performed By: #### C BC #### [facility] [address] [place] [address] Dr. Santhosh Francois NEUT # 3.1 103/ul Normal 1.4-6.5 [facility] Comment on above: Performed By: #### C BC #### [facility] [address] [place] [address] Dr. Santhosh Francois Neutrophils/100 WBC (Bld) 54.4 % Normal 43.0-75.0 [facility] Comment on above: Performed By: #### C BC #### [facility] [address] [place] [address] Dr. Santhosh Francois Platelet mean volume (Bld) [Entitic vol] 10.0 fL Normal 9.5-13.5 [facility] Comment on above: Performed By: #### C BC #### [facility] [address] [place] [address] Dr. Santhosh Francois PLT 191 103/ul Normal 150-450 [facility] Comment on above: Performed By: #### C BC #### [facility] [address] [place] [address] Dr. Santhosh Francois RBC 4.78 106/ul Normal 4.70-6.10 [facility] Comment on above: Performed By: #### C BC #### [facility] [address] [place] [address] Dr. Santhosh Francois WBC 5.8 103/ul Normal 4.0-11.0 [facility] Comment on above: Performed By: #### C BC #### [facility] [address] [place] [address] Dr. Santhosh Francois MR prostate wo/w conon 09-17 MR prostate wo/w con [facility] [place] [address] MRI Report Signed Patient: Miki Benitez MR#: [id number] : 1955 Acct:[id number] Age/Sex: 65 / M ADM Date: 09/16/21 Loc: MR Room: Type: [facility] Attending Dr: Delma Briggs MD Ordering Provider: [...] AM COT by: Tomy Garza MD Diplomate, [employer] Report Completed: Sep 17, 2021 10:46:46 AM COT This transmission is proprietary, privileged and confidential. It is intended to be communication only for the use of the addressee; access to this message by anyone else is unaut Transcribed By: 09/17/21 1348 Dictated By: NON STAFF 09/17/21 1046 Signed By: 09/17/21 1349 [facility] Blood Urea Nitrogenon 2020 Urea nitrogen [Mass/Vol] 21 mg/dL Normal - [facility] Comment on above: Order Comment: STAT FOR MRI Performed By: #### C REAT, BUN #### [facility] [address] [place] [address] [place] Creatinineon 09-03-2021 Creatinine [Mass/Vol] 1.01 mg/dL Normal 0.64-1.27 [facility] Comment on above: Order Comment: STAT FOR MRI Performed By: #### C REAT, BUN #### [facility] [address] [place] [address] [place] Creatinine Clr Calc Pharmacy 90.06 [facility] Comment on above: Order Comment: STAT FOR MRI Result Comment: PERF ORMED BY: [place] [address] PATHOLOGIST [employer] TONNY ZHOU M.D. Performed By: #### C REAT, BUN #### [facility] [address] [id number] [facility] Estimated GFR ( Teresita > 60 Normal [facility] Comment on above: Order Comment: STAT FOR MRI Result Comment: GFR estimated reference range: According to KDOQI guidelines, <60 ml/min/1.73m2 is sufficient to diagnose a patient with chronic kidney disease. Performed By: #### C REAT, BUN #### [facility] [address] Estimated GFR (Non- Am > 60 Normal [facility] Comment on above: Order Comment: STAT FOR MRI Performed By: #### C REAT, BUN #### [facility] [address] [id number] [facility] Ironon 04-15-2019 Iron [Mass/Vol] 22 ug/dL Low 59-158 [facility] Comment on above: Performed By: #### C P #### [facility] [address] [place] [address] [place] [address] [employer] Mixer: Frank Mercado MD #### B12, FE #### [address] [address] [employer] Mixer: Rainer Araujo MD Vitamin B12on 04-15-2019 Cobalamin (Vitamin B12) [Mass/Vol] 1062 pg/mL Normal 232-1245 [facility] Comment on above: Performed By: #### C P #### [facility] [address] [place] [address] Baking Pow[employer] Mixer: Frank Mercado MD #### B12, FE #### [facility] [address] [place] [address] [employer]aking [employer] Mixer: Rainer Araujo MD Comp Metabolic Profon 2018 Albumin [Mass/Vol] 4.2 g/dL Normal 3.5-5.2 [facility] Comment on above: Performed By: #### C P #### [facility] [address] [place] [address] [employer]aking Pow[employer] Mixer: Frank Mercado MD #### B12, FE #### [address] [id number] [employer]er: Rainer Araujo MD Albumin/Globulin [Mass ratio] 1.6 {ratio} Normal 1.0-2.5 [facility] Comment on above: Performed By: #### C P #### [facility] [address] [place] [address] [address] [place], [place] [id number] [employer] Mixer: Frank Mercado MD #### B12, FE #### [address] [id number] [employer]er: Rainer Araujo MD Alkaline Phos 120 U/L Normal 40-129 [facility] [place] [facility] Comment on above: Performed By: #### C P #### [address] [place], [place] [id number] [employer] Mixer: Frank Mercado MD #### B12, FE #### [address] [address] [employer] Mixer: Rainer Araujo MD Bilirubin Ql (U) 0.72 mg/dL Normal 0.3-1.2 [facility] Comment on above: Performed By: #### C P #### [address] [place], [place] [phone] Baking Pow[employer] Mixer: Frnak Mercado MD #### B12, FE #### [address] [address] [employer] Mixer: Rainer Araujo MD Protein [Mass/Vol] 6.8 g/dL Normal 6.4-8.3 [facility] Comment on above: Performed By: #### C P #### [address] [place], [place] [id number] Baking Pow[employer] Mixer: Frank Mercado MD #### B12, FE #### [address] [address] B[employer] Mixer: Rainer Araujo MD (cont.) [facility] Comment on above: Result Comment: Aver age GFR for 60-69 years old: 85 mL/min/1.73sq m Chronic Kidney Disease: <60 mL/min/1.73sq m Kidney failure: <15 mL/min/1.73sq m eGFR calculated using average adult body mass. Additional eGFR calculator available at: http://www.[employer]/multiple_crcl_2012.htm Performed By: #### C P #### [facility] [address] [place], [place] [phone] Baking [employer] Mixer: Frank Mercado MD #### B12, FE #### [address] [place] [address] Baking Pow[employer] Mixer: Rainer Araujo MD ALT [Catalytic activity/Vol] 29 U/L Normal 5-41 [facility] Comment on above: Performed By: #### C P #### [address] [place], [place] [id number] Baking Pow[employer] Mixer: Frank Mercado MD #### B12, FE #### [address] [place] [address] Baking Pow[employer] Mixer: Rainer Araujo MD Anion gap [Moles/Vol] 10 mmol/L [facility] Comment on above: Performed By: #### C P #### [facility] [address] [place] [address] Baking Powder Mixer: Frank Mercado MD #### B12, FE #### [facility] [address] [place] [address] Baking Pow[employer] Mixer: Rainer Araujo MD AST [Catalytic activity/Vol] 26 U/L Normal <40 [facility] Comment on above: Performed By: #### C P #### [facility] [address] [place] [address] [place] [place], [place] [id number] Baking Powder Mixer: Frank Mercado MD #### B12, FE #### [facility] [address] [place] [address] Baking Powder Mixer: Rainer Araujo MD BUN/CRE Ratio 24 High 9-20 [facility] Comment on above: Performed By: #### C P #### [facility] [address] [place] [address] Baking Powder Mixer: Frank Mercado MD #### B12, FE #### [address] [address] Baking Powder Mixer: Rainer Araujo MD Calcium [Mass/Vol] 8.2 mg/dL Low 8.6-10.4 [facility] Comment on above: Performed By: #### C P #### [facility] [address] [place] [address] Baking Powder Mixer: Frank Mercado MD #### B12, FE #### [address] [address] Baking Powder Mixer: Rainer Araujo MD Chloride [Moles/Vol] 115 mmol/L High 98-107 [facility] Comment on above: Performed By: #### C P #### [facility] [address] [place] [address] Baking Powder Mixer: Frank Mercado MD #### B12, FE #### [facility] [address] [place] [address] Baking Powder Mixer: Rainer Araujo MD CO2 [Moles/Vol] 17 mmol/L Low 20-31 [facility] Comment on above: Performed By: #### C P #### [facility] [address] [place] [address] Baking Powder Mixer: Frank Mercado MD #### B12, FE #### [address] [address] Baking Powder Mixer: Rainer Araujo MD Creatinine [Mass/Vol] 1.11 mg/dL Normal 0.70-1.20 [facility] Comment on above: Performed By: #### C P #### [facility] [address] [place], [place] [id number] Baking Powder Mixer: Frank Mercado MD #### B12, FE #### [address] [address] Baking Powder Mixer: Rainer Araujo MD GFR, Amer >60 Normal >60 [facility] Comment on above: Performed By: #### C P #### [facility] [address] [place], [place] [id number] Baking Powder Mixer: Frank Mercado MD #### B12, FE #### [address] [address] Baking Powder Mixer: Rainer Araujo MD GFR,non Amer >60 Normal >60 [facility] Comment on above: Performed By: #### C P #### [facility] [address] [place], [place] [id number] Baking Powder Mixer: Frank Mercado MD #### B12, FE #### [address] [address] Baking Powder Mixer: Rainer Araujo MD Glucose [Mass/Vol] 103 mg/dL High 70-99 [facility] Comment on above: Performed By: #### C P #### [facility] [address] [place] [address] Baking Powder Mixer: Frank Mercado MD #### B12, FE #### [address] [address] Baking Powder Mixer: Rainer Araujo MD Potassium [Moles/Vol] 4.1 mmol/L Normal 3.7-5.3 [facility] Comment on above: Performed By: #### C P #### [facility] [address] [place], [place] [phone] Baking Powder Mixer: Frank Mercado MD #### B12, FE #### [address] [place], [place] [id number] Baking Powder Mixer: Rainer Araujo MD Sodium [Moles/Vol] 142 mmol/L Normal 135-144 [facility] Comment on above: Performed By: #### C P #### [facility] [address] [place] [id number] Baking Powder Mixer: Frank Mercado MD #### B12, FE #### [address] [address] Baking Powder Mixer: Rainer Araujo MD Staging: Normal [facility] Comment on above: Result Comment: Stag e 1: Some kidney damage normal GFR Stage 2: Mild kidney damage GFR 60-89 Stage 3: Moderate kidney damage GFR 30-59 Stage 4: Severe kidney damage GFR 15-29 Stage 5: Severe kidney damage GFR <15 ESRD - chronic treatment by dialysis or transplant Performed By: #### C P #### [address] [place], [place] [phone] Baking Powder Mixer: Frank Mercado MD #### B12, FE #### [address] [address] Baking Powder Mixer: Rainer Araujo MD Urea nitrogen [Mass/Vol] 27 mg/dL High 8-23 [facility] Comment on above: Performed By: #### C P #### [address] [place] [address] Baking Powder Mixer: Frank Mercado MD #### B12, FE #### [address] [address] Baking Powder Mixer: Rainer Araujo MD Vital Signs Date Time Vital Sign Value Performing Clinician Facility 11-29-2024 13:49-0500 Body height 180.3 cm Vijay Atkins MD Work Phone: [facility] 11-29-2024 13:49-0500 Body mass index (BMI) [Ratio] 32.5 kg/m2 Vijay Atkins MD Work Phone: [facility] 11-29-2024 13:49-0500 Body weight 105.69 kg Vijay Atkins MD Work Phone: [facility] 11-29-2024 13:49-0500 Heart rate 70 /min Vijay Atkins MD Work Phone: [facility] 11-29-2024 13:49-0500 Respiratory rate 16 /min Vijay Atkins MD Work Phone: [facility] 11-29-2024 13:49-0500 SaO2% (BldA) [Mass fraction] 94 % Vijay Atkins MD Work Phone: [facility] 10-24-2024 16:02-0500 Diastolic blood pressure 60 mm[Hg] Delma BRIGGS [facility] 10-24-2024 16:02-0500 Heart rate 56 /min Delma BRIGGS [facility] 10-24-2024 16:02-0500 Respiratory rate 16 /min Delma BRIGGS [facility] 10-24-2024 16:02-0500 Systolic blood pressure 94 mm[Hg] Delma BRIGGS [facility] 08-18-2024 16:00-0500 Body height 177.8 cm Park Yoder NP Work Phone: [facility] 08-18-2024 16:00-0500 Body mass index (BMI) [Ratio] 33.69 kg/m2 Park Yoder NP Work Phone: [facility] 08-18-2024 16:00-0500 Body temperature 98.1 [degF] Park Aichholz WORKSHOP MANAGER Work Phone: [facility] 08-18-2024 16:00-0500 Body weight 106.5 kg Park Aichholz WORKSHOP MANAGER Work Phone: [facility] 08-18-2024 16:00-0500 Diastolic blood pressure 78 mm[Hg] Park Aichholz WORKSHOP MANAGER Work Phone: [facility] 08-18-2024 16:00-0500 Heart rate 71 /min Park Aichholz WORKSHOP MANAGER Work Phone: [facility] 08-18-2024 16:00-0500 Respiratory rate 21 /min Park Aichholz WORKSHOP MANAGER Work Phone: [facility] 08-18-2024 16:00-0500 SaO2% (BldA) [Mass fraction] 97 % Park Aichholz WORKSHOP MANAGER Work Phone: [facility] 08-18-2024 16:00-0500 Systolic blood pressure 122 mm[Hg] Park Aichholz WORKSHOP MANAGER Work Phone: [facility] 05-25-2024 15:52-0400 Body height 177.8 cm Park Aichholz WORKSHOP MANAGER Work Phone: [facility] 05-25-2024 15:52-0400 Body mass index (BMI) [Ratio] 33.29 kg/m2 Park Aichholz WORKSHOP MANAGER Work Phone: [facility] 05-25-2024 15:52-0400 Body temperature 97.3 [degF] Park Aichholz WORKSHOP MANAGER Work Phone: [facility] 05-25-2024 15:52-0400 Body weight 105.23 kg Park Aichholz WORKSHOP MANAGER Work Phone: [facility] 05-25-2024 15:52-0400 Diastolic blood pressure 52 mm[Hg] Park Aichholz WORKSHOP MANAGER Work Phone: [facility] 05-25-2024 15:52-0400 Heart rate 67 /min Park Simpsontiffany WORKSHOP MANAGER Work Phone: [facility] 05-25-2024 15:52-0400 Respiratory rate 18 /min Parkvero Simpsonashliez WORKSHOP MANAGER Work Phone: [facility] 05-25-2024 15:52-0400 SaO2% (BldA) [Mass fraction] 97 % Parkvero Simpsonashliez WORKSHOP MANAGER Work Phone: [facility] 05-25-2024 15:52-0400 Systolic blood pressure 90 mm[Hg] Park Tatianatiffany WORKSHOP MANAGER Work Phone: [facility] 04-27-2024 07:57-0400 Body mass index (BMI) [Ratio] 32.36 kg/m2 Yisel Heart MD Work Phone: [facility] 04-27-2024 07:57-0400 Body weight 105.23 kg Yisel Heart MD Work Phone: [facility] 04-27-2024 07:57-0400 Diastolic blood pressure 60 mm[Hg] Yisel Heart MD Work Phone: [facility] 04-27-2024 07:57-0400 Heart rate 64 /min Yisel Heart MD Work Phone: [facility] 04-27-2024 07:57-0400 Respiratory rate 14 /min Yisel Heart MD Work Phone: [facility] 04-27-2024 07:57-0400 SaO2% (BldA) [Mass fraction] 94 % Yisel Heart MD Work Phone: [facility] 04-27-2024 07:57-0400 Systolic blood pressure 98 mm[Hg] Yisel Heart MD Work Phone: [facility] 11-04-2023 15:54-0500 Body height 177.8 cm Park Paresh WORKSHOP MANAGER Work Phone: [facility] 11-04-2023 15:54-0500 Body mass index (BMI) [Ratio] 34.47 kg/m2 Park Terrazassilvio WORKSHOP MANAGER Work Phone: [facility] 11-04-2023 15:54-0500 Body temperature 97.11 [degF] Park Terrazassilvio WORKSHOP MANAGER Work Phone: [facility] 11-04-2023 15:54-0500 Body weight 108.95 kg Park Terrazasnicolettez WORKSHOP MANAGER Work Phone: [facility] 11-04-2023 15:54-0500 Diastolic blood pressure 78 mm[Hg] Park Simpsontiffany WORKSHOP MANAGER Work Phone: [facility] 11-04-2023 15:54-0500 Heart rate 66 /min Park Terrazassilvio WORKSHOP MANAGER Work Phone: [facility] 11-04-2023 15:54-0500 Respiratory rate 18 /min Park Terrazassilvio WORKSHOP MANAGER Work Phone: [facility] 11-04-2023 15:54-0500 SaO2% (BldA) [Mass fraction] 97 % Park Terrazasnicolettez WORKSHOP MANAGER Work Phone: [facility] 11-04-2023 15:54-0500 Systolic blood pressure 118 mm[Hg] Park Terrazassilvio WORKSHOP MANAGER Work Phone: [facility] 10-19-2023 15:01-0500 Blood Pressure Location Delma BRIGGS [facility] 10-19-2023 15:01-0500 Diastolic blood pressure 60 mm[Hg] Delma BRIGGS [facility] 10-19-2023 15:01-0500 Heart rate 64 /min Delma BRIGGS [facility] 10-19-2023 15:01-0500 Respiratory rate 16 /min Delma BRIGGS [facility] 10-19-2023 15:01-0500 Systolic blood pressure 109 mm[Hg] Delma BRIGGS [facility] 04-13-2023 15:59-0400 Blood Pressure Location Delma BRIGGS [facility] 04-13-2023 15:59-0400 Diastolic blood pressure 80 mm[Hg] Delma BRIGGS [facility] 04-13-2023 15:59-0400 Heart rate 68 /min Delma BRIGGS [facility] 04-13-2023 15:59-0400 Respiratory rate 16 /min Delma BRIGGS [facility] 04-13-2023 15:59-0400 Systolic blood pressure 130 mm[Hg] Delma BRIGGS [facility] 11-04-2022 14:37-0500 Blood Pressure Location Delma BRIGGS [facility] 11-04-2022 14:37-0500 Diastolic blood pressure 69 mm[Hg] Delma BRIGGS [facility] 11-04-2022 14:37-0500 Heart rate 68 /min Delma BRIGGS [facility] 11-04-2022 14:37-0500 Systolic blood pressure 118 mm[Hg] Delma BRIGGS [facility] 05-19-2022 15:59-0400 Blood Pressure Location Delma BRIGGS [facility] [place] 05-19-2022 15:59-0400 Diastolic blood pressure 66 mm[Hg] Delmayann BRIGGS [facility] [place] 05-19-2022 15:59-0400 Heart rate 59 /min Delma BRIGGS [facility] [place] 05-19-2022 15:59-0400 Respiratory rate 16 /min Delma BRIGGS [facility] [place] 05-19-2022 15:59-0400 Systolic blood pressure 117 mm[Hg] Delmayann BRIGGS [facility] Encounters Encounter Date Encounter Type Care Provider Facility Start: 10-23-2025 ambulatory Delma BRIGGS Facili ty: [place] Start: 11-29-2024 End: 11-29-2024 Nupur flowsheet Vijay Atkins MD Work Phone: [facility] Start: 11-29-2024 End: 11-29-2024 Nupur flowsheet Vijay Atkins MD Work Phone: [facility] Start: 11-29-2024 End: 11-29-2024 Office outpatient visit 25 minutes Vijay Atkins MD Work Phone: [facility] Comment on above: Hypocalcemia (Primar y Dx); Vitamin D deficiency; Secondary hyperparathyroidism (CMS/HCC) Start: 11-29-2024 End: 11-29-2024 ambulatory VIJAY ATKINS Not Available Start: 10-24-2024 End: 10-24-2024 ambulatory Delma BRIGGS Facility:[facility] Start: 10-24-2024 End: 10-24-2024 Patient encounter procedure Delma Ross BRIGGS [facility] Start: 10-21-2024 End: 10-21-2024 Clinisync Result [...] 08-18-2024 End: 08-18-2024 Bamboo flowsheet Park Yoder WORKSHOP MANAGER Work Phone: [facility] Start: 08-18-2024 End: 08-18-2024 Bamboo flowsheet Park Yoder WORKSHOP MANAGER Work Phone: [facility] Start: 08-17-2024 End: 08-17-2024 Clinisync Result Encounter Park Yoder WORKSHOP MANAGER Work Phone: [facility] Unsolicited Start: [...] End: 06-08-2024 Telephone encounter [facility] Comment on above: Lipitor and fasting labs Start: 05-25-2024 End: 05-25-2024 ambulatory PARK YODER Not Available Start: 05-25-2024 End: 05-25-2024 Office outpatient visit 25 minutes Park Yoder WORKSHOP MANAGER Work Phone: [facility] Comment on above: Weakness (Primary Dx ); Thrombocytopenia, unspecified (CMS/HCC); Hyperparathyroidism, unspecified (CMS/HCC); Other ventricular tachycardia (CMS/HCC); Elevated liver function tests; Iron deficiency anemia following bariatric surgery; Primary hypertension (CMS/HCC); Elevated parathyroid hormone; Vitamin D deficiency Start: 05-25-2024 End: 05-25-2024 Bamboo flowsheet Park Yoder WORKSHOP MANAGER Work Phone: [facility] Start: 05-25-2024 End: 05-25-2024 Bamboo flowsheet Park Yoder WORKSHOP MANAGER Work Phone: [facility] Start: 05-20-2024 End: 05-20-2024 Refill [facility]akenzie [facility]erson [facility] Comment on above: Med Refill Start: 05-18-2024 End: 05-19-2024 Refill Karime Mcallister RN [facility] Comment on above: Med Refill Start: 05-06-2024 End: 05-13-2024 Refill Albino Morris COMMUNITY MUSIC THERAPIST-TRACTOR ENGINE ASSEMBLER Work Phone: [facility] Comment on above: Med Refill Start: 04-27-2024 End: 04-27-2024 Office outpatient visit 15 minutes Yisel Heart MD Work Phone: [facility] Comment on above: Nonischemic cardiomy opathy (CMS-HCC) (Primary Dx); Chronic systolic heart failure (CMS-HCC); Nonsustained ventricular tachycardia (CMS-HCC); Status post ablation of ventricular arrhythmia Start: 04-27-2024 End: 04-27-2024 ambulatory YISEL HEART [facility] Start: 04-26-2024 End: 04-26-2024 Telephone encounter Ifrah Tapia CMA [facility] Start: 04-06-2024 End: 04-06-2024 ambulatory LITO GANNON Not Available Start: 03-30-2024 End: 03-30-2024 ambulatory PARK AICHHOLZ Not Available Start: 02-18-2024 End: 02-18-2024 ambulatory PARK AICHHOLZ Not Available Start: 02-15-2024 End: 02-16-2024 Refill Violeta Peacock RN [facility] Comment on above: Med Refill Start: 02-09-2024 End: 02-10-2024 Refill Berta Nieves RN [facility] Comment on above: Med Refill Start: 11-04-2023 End: 11-04-2023 Office outpatient visit 15 minutes Park Yoder WORKSHOP MANAGER Work Phone: [facility] Comment on above: 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); BMI 37.0-37.9, adult; Nonischemic cardiomyopathy (CMS/HCC); Primary hypertension (CMS/HCC); Chronic systolic heart failure (CMS/HCC); H/O bariatric surgery; Mixed hyperlipidemia (CMS/HCC) Start: 11-04-2023 Bamboo flowsheet Park Paresh WORKSHOP MANAGER Work Phone: [facility] Start: 11-04-2023 Bamboo flowsheet Park Tatianahnicolettez WORKSHOP MANAGER Work Phone: [facility] Start: 10-19-2023 End: 10-19-2023 Patient encounter procedure Delma BRIGGS [facility] Start: 04-13-2023 End: 04-13-2023 Patient encounter procedure Delma BRIGGS [facility] Start: 03-18-2023 End: 03-18-2023 Patient encounter procedure Delma R BRIGGS [facility] [place] Start: 11-21-2022 End: 11-22-2022 ambulatory LILIANA YODER Facility:[facility] Start: 11-04-2022 End: 11-04-2022 Patient encounter procedure Delma Ross BRIGGS [facility] [place] Start: 09-12-2022 End: 09-12-2022 ambulatory DEANNE OBRIEN . Facility:[facility] Start: 05-19-2022 End: 05-19-2022 Patient encounter procedure [facility] Start: 05-16-2022 End: 05-17-[address] DOCTOR HOWE Facility:[facility] Start: 04-30-2022 End: 04-30-[address] CASSIDY DILLON Facility:[facility] Start: 03-07-2022 End: 03-08-2022 ambulatory LILIANA YODER Facility:[facility] Start: 01-01-2022 End: 01-01-2022 Patient encounter procedure Ary ARTEAGA [facility] Start: 12-18-2021 End: 12-18-[address] ARY ARTEAGA . Facility:[facility] Start: 12-14-2021 ambulatory LILIANA YODER [facility] ity:[facility] Start: 12-03-2021 End: 12-04-2021 ambulatory LILIANA YODER Facility:[facility] Start: 11-12-2021 Patient encounter status Berta Nieves RN Consulted Work Phone: Start: 04-14-2019 End: 04-15-2019 Patient encounter procedure PARK Reyes [facility] Start: 01-28-2018 End: 01-29-2018 Ambulatory DEFAULT PHYSICIAN Facility:[facility] Procedures Date Procedure Procedure Detail Performing Clinician Start: 10-21-2024 MHPT PSA, DIAGNOSTIC Generic External Data Provider Start: 08-17-2024 ALL CBC WITH AUTO DIFF Parkvero Yoder WORKSHOP MANAGER Work Phone: Start: 06-07-2024 ALL LIPID PROFILE (FASTING) Generic Exte rnal Data Provider Start: 04-27-2024 Ecg routine ecg w/least 12 lds w/i&r Yisel Heart MD Work Phone: Start: 04-27-2024 Follow-up visit Follow-up Y[facility]EL HEART Start: 11-21-[address] DELMA BRIGGS . Comment on above: Performed By: #### PSAD #### [facility] [address] [place] [address] Dr. Santhosh Francois Start: 11-04-2022 Cystoscopy Delma BRIGGS Start: 05-16-[address] DELMA BRIGGS . Comment on above: Performed By: #### PSAD #### [facility] [address] [place] [address] Dr. Santhosh Francois Start: 12-18-2021 Colonoscopy Park Yoder WORKSHOP MANAGER Work Phone: Start: 12-18-2021 Colonoscopy Ary ARTEAGA [...] DTaP,Tdap and Td Vaccines (2 - Tdap) [facility] Start: 06-07-2025 End: 06-07-2025 Lipid 1996 panel - Serum or Plasma Lipid profile Lab Routine Mixed hyperlipidemia Expected: 06/07/2025 (Approximate), Expires: 06/07/2025 [employer] [place] Work Phone: Comment on above: Expected: 06/07/2025 (Approximate), Expi res: 06/07/2025 Start: 05-23-2025 End: 05-23-2025 Patient encounter procedure 05/23/2025 2:00 PM EDT Office Visit [facility] [address] [place] [id number] Vijay Atkins MD [address] [place] [address] [facility] Start: 04-27-2025 Adult BMI Screening Adult BMI Screening [facility] Start: 04-27-2025 Tobacco Screening Tobacco Screening [facility] Start: 02-13-2025 End: 02-13-2025 Patient encounter procedure 02/13/2025 3:40 PM EDT Office Visit [facility] [address] [place] [address] Park Yoder, CHRISTOPHE [address] [place] [address] [facility] Start: 11-29-2024 End: 11-29-2025 25-hydroxyvitamin D3 [Mass/volume] in Serum or Plasma Vitamin D 25 hydroxy Total Lab Routine Vitamin D deficiency Expected: 11/29/2024 (Approximate), Expires: 11/29/2025 [facility] Comment on above: Expected: 11/29/2024 (Approximate), Expi res: 11/29/2025 Start: 11-29-2024 End: 11-29-2025 Magnesium [Mass/volume] in Serum or Plasma Magnesium Lab Routine Hypocalcemia Expected: 11/29/2024 (Approximate), Expires: 11/29/2025 [facility] Work Phone: Comment on above: Expected: 11/29/2024 (Approximate), Expi res: 11/29/2025 Start: 11-29-2024 End: 11-29-2025 Parathyrin.intact [Mass/volume] in Serum or Plasma PTH, intact Lab Routine Secondary hyperparathyroidism ([facility]) Expected: 11/29/2024 (Approximate), Expires: 11/29/2025 [facility] Comment on above: Expected: 11/29/2024 (Approximate), Expi res: 11/29/2025 Start: 11-29-2024 End: 11-29-2025 Renal function panel Renal function panel Lab Routine Hypocalcemia Expected: 11/29/2024 (Approximate), Expires: 11/29/2025 [facility] Comment on above: Expected: 11/29/2024 (Approximate), Expi res: 11/29/2025 Start: 11-29-2024 End: 11-29-2024 Patient encounter procedure [facility] Comment on above: Arrived Start: 11-18-2024 End: 08-18-2025 25-hydroxyvitamin D3 [Mass/volume] in Serum or Plasma Vitamin D 25 hydroxy Lab Routine H/O bariatric surgery Vitamin D deficiency Hyperparathyroidism, unspecified (CMS/HCC) Expected: 11/18/2024 (Approximate), Expires: 08/18/2025 [facility] Comment on above: Expected: 11/18/2024 (Approximate), Expi res: 08/18/2025 Start: 11-18-2024 End: 08-18-2025 CBC W Auto Differential panel - Blood CBC and differential Lab Routine Iron deficiency anemia following bariatric surgery Expected: 11/18/2024 (Approximate), Expires: 08/18/2025 [facility] Work Phone: Comment on above: Expected: 11/18/2024 (Approximate), Expi res: 08/18/2025 Start: 11-18-2024 End: 08-18-2025 Cobalamin (Vitamin B12) [Mass/volume] in Serum or Plasma Vitamin B12 Lab Routine H/O bariatric surgery Expected: 11/18/2024 (Approximate), Expires: 08/18/2025 [facility] Comment on above: Expected: 11/18/2024 (Approximate), Expi res: 08/18/2025 Start: 11-18-2024 End: 08-18-2025 Comprehensive metabolic 2000 panel - Serum or Plasma Comprehensive metabolic panel Lab Routine Hyperparathyroidism, unspecified (CMS/HCC) Expected: 11/18/2024 (Approximate), Expires: 08/18/2025 [facility] Comment on above: Expected: 11/18/2024 (Approximate), Expi res: 08/18/2025 Start: 11-18-2024 End: 08-18-2025 Iron + transferrin + TIBC Iron + transferrin + TIBC Lab Routine Iron deficiency anemia following bariatric surgery Expected: 11/18/2024 (Approximate), Expires: 08/18/2025 [facility] Comment on above: Expected: 11/18/2024 (Approximate), Expi res: 08/18/2025 Start: 11-18-2024 End: 08-18-2025 Lipid 1996 panel - Serum or Plasma Lipid panel Lab Routine Chronic systolic heart failure (CMS/HCC) Expected: 11/18/2024 (Approximate), Expires: 08/18/2025 [facility] Comment on above: Expected: 11/18/2024 (Approximate), Expi res: 08/18/2025 Start: 11-18-2024 End: 08-18-2025 Microalbumin/Creatinin e panel in random Urine Microalbumin / creatinine, urine ratio Lab Routine Primary hypertension (CMS/HCC) Expected: 11/18/2024 (Approximate), Expires: 08/18/2025 [facility] Comment on above: Expected: 11/18/2024 (Approximate), Expi res: 08/18/2025 Start: 11-18-2024 End: 08-18-2025 Parathyrin.intact [Mass/volume] in Serum or Plasma PTH, intact Lab Routine Hyperparathyroidism, unspecified (CMS/HCC) Expected: 11/18/2024 (Approximate), Expires: 08/18/2025 [facility] Comment on above: Expected: 11/18/2024 (Approximate), Expi res: 08/18/2025 Start: 11-18-2024 End: 08-18-2025 Urinalysis complete panel - Urine Urinalysis with reflex microscopic (clean catch) Lab Routine Primary hypertension ([facility]/HCC) Expected: 11/18/2024 (Approximate), Expires: 08/18/2025 [facility] Healthcare Comment on above: Expected: 11/18/2024 (Approximate), Expi res: 08/18/2025 Start: 08-18-2024 End: 08-18-2024 Patient encounter procedure 08/18/2024 3:40 PM EST Office Visit [facility] [address] [place] [address] Park Yoder NP [address] [place] [address] [facility] Start: 07-28-2024 Influenza vaccination Influenza Vaccine (#1) [facility] Comment on above: Postponed from 05/29/2024 (Patient Does Not Have Time) Start: 06-02-2024 End: 06-02-2024 Patient encounter procedure 06/02/2024 8:40 AM EDT Office Visit [facility] [address] [place] [address] Lito Gannon, WORKSHOP MANAGER [address] [place] [address] [facility] Start: 05-29-2024 COVID-19 Vaccine () COVID-19 Vaccine () [facility] Start: 05-29-2024 Influenza vaccination [facility] Start: 05-25-2024 End: 05-25-2025 CBC W Auto Differential panel - Blood CBC and differential Lab Routine Thrombocytopenia, unspecified (CMS/HCC) Iron deficiency anemia following bariatric surgery Expected: 05/25/2024 (Approximate), Expires: 05/25/2025 [facility] Comment on above: Expected: 05/25/2024 (Approximate), Expi res: 05/25/2025 Start: 05-25-2024 End: 05-25-2025 Ferritin [Mass/volume] in Serum or Plasma Ferritin Lab Routine Thrombocytopenia, unspecified (CMS/HCC) Iron deficiency anemia following bariatric surgery Expected: 05/25/2024 (Approximate), Expires: 05/25/2025 [facility] Comment on above: Expected: 05/25/2024 (Approximate), Expi res: 05/25/2025 Start: 05-25-2024 End: 05-25-2025 Gamma glutamyl transferase [Enzymatic activity/volume] in Serum or Plasma Gamma GT Lab Routine Elevated liver function tests Expected: 05/25/2024 (Approximate), Expires: 05/25/2025 [facility] Comment on above: Expected: 05/25/2024 (Approximate), Expi res: 05/25/2025 Start: 05-25-2024 End: 05-25-2025 Hepatic function 2000 panel - Serum or Plasma Hepatic function panel Lab Routine Elevated liver function tests Expected: 05/25/2024 (Approximate), Expires: 05/25/2025 [facility] Work Phone: Comment on above: Expected: 05/25/2024 (Approximate), Expi res: 05/25/2025 Start: 05-25-2024 End: 05-25-2025 Iron and Iron binding capacity panel - Serum or Plasma Iron level Lab Routine Thrombocytopenia, unspecified (CMS/HCC) Iron deficiency anemia following bariatric surgery Expected: 05/25/2024 (Approximate), Expires: 05/25/2025 [facility] Comment on above: Expected: 05/25/2024 (Approximate), Expi res: 05/25/2025 Start: 04-27-2024 End: 04-27-2025 Echo complete W/O contrast Echo complete W/O contrast Echocardiography Routine Nonischemic cardiomyopathy (CMS-HCC) Expected: 04/27/2024, Expires: 04/27/2025 [facility] Work Phone: Comment on above: Expected: 04/27/2024, Expires: Start: 04-27-2024 End: 04-27-2024 Patient encounter procedure 04/27/2024 8:30 AM EDT [facility] [address] [place] [address] Yisel Heart MD [address] [place] [address] [facility] Start: 12-28-2023 Screening for malignant neoplasm of colon [facility] Start: 10-15-2023 Adult BMI Screening Adult BMI Screening [facility] Start: 10-15-2023 Tobacco Screening Tobacco Screening [facility] Start: 05-29-2023 COVID-19 Vaccine ( season) COVID-19 Vaccine ( season) [facility] Start: 05-29-2023 Influenza vaccination Influenza Vaccine (#1) [facility] Start: 2022 Abdominal aortic aneurysm screening Abdominal Aortic Aneurysm (AAA) Screen [facility] Start: 2022 Fall Risk Screening Fall Risk Screening [facility] Start: 11-28-2007 Administration of varicella zoster vaccine Zoster (Shingles) Vaccine (1 of 2) [facility] Start: 1969 Depression Screening Depression Screening [facility] Start: 11-28-1963 Pneumococcal Vaccine: 65+ Years (1 - PCV) Pneumococcal Vaccine: 65+ Years (1 - PCV) [facility] Start: 1955 Medicare Annual Wellness Visit Medicare Annual Wellness Visit [facility] Start: 1955 Screening for malignant neoplasm of colon [facility] End: 05-18-2025 Lipid panel Lipid panel Lab Routine Mixed hyperlipidemia 1 Occurrences starting 05/19/2024 until 05/18/2025 [facility] Work Phone: Comment on above: 1 Occurrences starting 05/19/2024 until 05/18/2025 POCT EKG POCT EKG ECG Rou linda Nonischemic cardiomyopathy (CMS-HCC) Chronic systolic heart failure (CMS-HCC) Nonsustained ventricular tachycardia ([facility]-HCC) Status post ablation of ventricular arrhythmia 04/27/2024 [facility] Immunizations Immunization Date Immunization Notes Care Provider [facility] 08-03-2024 Influenza, High-dose Seasonal, Quadrivalent, Preservative Free Park Yoder WORKSHOP MANAGER Work Phone: [facility] 08-12-2023 Influenza, High-dose Seasonal, Quadrivalent, Preservative Free Park Yoder WORKSHOP MANAGER Work Phone: [facility] 08-12-2023 influenza virus vaccine, unspecified formulation Ifrah [facility] 07-29-2021 influenza virus vaccine, unspecified formulation Ary ARTEAGA [facility] [place] 02-13-2021 SARS-CoV-2 (COVID-19 ) mRNA BNT-162b2 farhanax Delma BRIGGS [facility] 01-23-2021 SARS-CoV-2 (COVID-19 ) mRNA BNT-162b2 farhanax Delma BRIGGS [facility] 09-28-2020 SARS-CoV-2 (COVID-19 ) mRNA BNT-162b2 vax Ary ARTEAGA [facility] [place] 07-02-2020 influenza virus vaccine, unspecified formulation Ary ARTEAGA [facility] [place] 06-16-2020 diphtheria, tetanus toxoids and pertussis vaccine Park Paresh WORKSHOP MANAGER Work Phone: [facility] Healthcare Payers Date Payer Category Payer Unknown [id number] 2020 Unknown [id number] 2020 [facility] 1.2.8 [id number] 15 2020 Unknown 1959 Unknown [id number] 1957 Unknown [id number] 2.16.84 0.1.170982.3.579.2.593 1957 Unknown [id number] 2.16.84 0.1.929270.3.579.2.593 1957 Unknown [id number] 2.16.84 0.1.762435.3.579.2.593 1957 Unknown [id number] 2.16.84 0.1.869360.3.579.2.593 1957 Unknown [id number] 2.16.84 0.1.045588.3.579.2.593 1957 Unknown [id number] 2.16.84 0.1.832126.3.579.2.593 1957 Unknown [id number] 2.16.84 0.1.869008.3.579.2.593 1957 Unknown [id number] 2.16.84 0.1.709830.3.579.2.593 1957 Unknown [id number] 2.16.84 0.1.833217.3.579.2.593 1957 Unknown [id number] 2.16.8 40.1.408534.3.579.2.1286 1957 Unknown [id number] 2.16.8 40.1.601574.3.579.2.727 1957 Unknown [id number] 2.16.8 40.1.291138.3.579.2.727 1957 Unknown [id number] 2.16.84 0.1.148094.3.579.2.1259 1957 Unknown [id number] 2.16.84 0.1.816010.3.579.2.1259 1957 Unknown [id number] 2.16.84 0.1.875009.3.579.2.1259 1957 Unknown [id number] 2.16.84 0.1.218037.3.579.2.1259 1957 Unknown [id number] 2.16.84 0.1.282700.3.579.2.1259 1957 Unknown [id number] 2.16.84 0.1.055760.3.579.2.1259 1957 Unknown [id number] 2.16.84 0.1.538347.3.579.2.1259 1957 Unknown [id number] 2.16.84 0.1.671978.3.579.2.1259 1957 Unknown [id number] 2.16.84 0.1.182586.3.579.2.1259 Social History Date Type Detail Facility Start: 12-06-2021 End: 10-26-2023 Tobacco smoking status Never smoked tobacco (finding) [facility] [place] Tobacco smoking status Never [facility] [place] Start: 10-26-2023 End: 11-29-2024 Sex Assigned At Male [facility] [place] Start: 10-19-2023 Tobacco smoking status Light t obacco smoker (finding) [facility] Start: 10-26-2023 End: 11-29-2024 History of Social function [facility] Start: 1955 Sex Assigned At Not on file [facility] Start: 11-04-2023 End: 11-29-2024 Alcohol intake Ex-drinker (finding) [facility] Start: 11-04-2023 Alcohol Comment caffine: 3 cups lucretia y [facility] Start: 09-16-2024 Tobacco smoking stat [facility] Tobacco smoking consumption unknown [facility] Start: 10-24-2024 Tobacco smoking status Smokes tobacco daily (finding) [facility] Start: 10-15-2022 Tobacco smoking status Ex-smoker (fi nding) [facility] History of tobacco use Current smoker [facility] History of tobacco use Cigar Smoker [facility] Start: 10-15-2022 End: 11-29-2024 Tobacco use and exposure Smokeless tobacco non-user [facility] Start: 10-15-2022 End: 04-27-2024 Alcoholic beverage intake Current drinker of alcohol (finding) [facility] Start: 10-15-2022 Tobacco Comment smokes a cigar occasionally [facility] Start: 04-06-2017 Alcohol Comment 1 drink per day [facility] Start: 11-29-2024 Tobacco smoking stat [facility] Occasional tobacco smoker [facility] Healthcare Functional Status Date Assessment Result Facility 10-24-2024 Functional Status N/A [facility] 10-19-2023 Functional Status Yes [facility] 04-13-2023 Functional Status N/A [facility] 11-04-2022 Functional Status N/A [facility] 05-19-2022 Functional Status N/A [facility] Clinical Notes 12-18-2021 to 11-29-2024 Vijay Atkins [...] months (around 06/01/2025). documented in this encounter [facility] 10-24-2024 Hospital Discharge instructions Patient Education [...] Follow these instructions at home: Medicines Take tflt-jdy-yxysuaa and prescription medicines only as told by [...] important. Where to find more information National [place] of Diabetes and Digestive and Kidney Diseases: [...] depends on the type of prostatitis. Take gosw-ufk-vttjbkn and prescription medicines only as told by [...] provider. Document Revised: 07/30/2023 Document Reviewed: 07/30/2023 [employer] Patient Education 2023 [employer]. Follow Up Care 10/19/2023 15:47:06 With:ANAHI MCDONALD, Delma Ross, URL Address: [facility] [address] [place] [address] [phone] When: Unknown Comments:1 yr w/ PSA and KUB [facility] [place] 10-24-2024 Note Patient Education Infectious Disease [...] these instructions at home: Medicines ??? Take dplx-ixj-nzstczt and prescription medicines only as told by [...] important. (more content not included)... [facility] 08-18-2024 History of Present illness Narrative Images [...] and b ridge documented in this encounter [facility] 08-18-2024 Instructions Park Yoder NP - 08/18/2024 3:40 PM EST No med dose changes at this time MAKE SURE YOU KEEP TAKING YOUR SUPPLEMENTS!!!! I will send you lab slip in October 2024 documented in this encounter [facility] 06-07-2024 Miscellaneous Notes Images from the original note were not included. Makenzie Roberson RN 06/07/2024 2:28 PM EDT Back to [facility] Lab results and TLMs recommendations called and reviewed with patient. Pt will decrease Lipitor to 20 mg daily, repeat fasting labs next year and new script will be sent to [facility] today. Makenzie Roberson RN 06/07/2024 2:22 PM EDT MD Makenzie Sheikh RN I would decrease his Lipitor down to 20 mg a day and recheck it in a year. Makenzie Roberson RN 06/07/2024 11:53 AM EDT TLM, labs ordered d/t med refills. Med list includes Lipitor 40 mg daily. Chol 68 Trigly 36 LDL 13.8 signed documented in this encounter [facility] 06-07-2024 Telephone encounter Note Images from the original note were not included. Makenzie Roberson RN 06/07/2024 2:28 PM EDT Back to [facility] Lab results and TLMs recommendations called and reviewed with patient. Pt will decrease Lipitor to 20 mg daily, repeat fasting labs next year and new script will be sent to [facility] today. Makenzie Roberson RN 06/07/2024 2:22 PM EDT MD Makenzie Sheikh RN I would decrease his Lipitor down to 20 mg a day and recheck it in a year. Makenzie Roberson RN 06/07/2024 11:53 AM EDT TLM, labs ordered d/t med refills. Med list includes Lipitor 40 mg daily. Chol 68 Trigly 36 LDL 13.8 [facility] 06-07-2024 Telephone encounter Note signed [facility] 05-25-2024 History of Present illness Narrative Associated [...] the original note were not included. Miki eBnitez is a 68 y.o. male presents with [...] vit d def documented in this encounter [facility] 05-20-2024 Miscellaneous Notes OV 04/27/24 04/02/24 CBC, CMP documented in this encounter [facility] 05-20-2024 Telephone encounter Note OV 04/27/24 04/02/24 CBC, CMP [facility] 05-18-2024 Miscellaneous Notes Last OV 04/27/24 Order placed for lipids.slm documented in this encounter [facility] 05-18-2024 Telephone encounter Note Last OV 04/27/24 Order placed for lipids.slm [facility] 05-06-2024 Miscellaneous Notes Last ov 04/27/24 Bmp 04/21/24 Lipid 04/01/23 Accountancy Professor attempted to contact ptmanishom For further refills, pt needs to complete lipid lab. Letter mailed tp pt. documented in this encounter [facility] 05-06-2024 Telephone encounter Note Last ov 04/27/24 Bmp 04/21/24 Lipid 04/01/23 Accountancy Professor attempted to contact pt, lmom For further refills, pt needs to complete lipid lab. Letter mailed tp pt. [facility] 04-27-2024 History of Present illness Narrative [...] prostatic hyperplasia) Chronic systolic congestive heart failure ([facility]-HCC) Encounter for preprocedural cardiovascular examination Hyperlipidemia Kidney stones lithotrypsy Ventricular premature depolarization No data recorded No data recorded No data recorded Past Surgical History: Procedure Laterality Date APPENDECTOMY CHOLECYSTECTOMY Coronary angiogram and right heart and left ventricular gram/pressure N/A 04/14/2017 Performed by Aidan Pittman MD at [facility] CARDIAC CATH LABS GASTRIC BYPASS HERNIA REPAIR PVC ABLATION, RHYTHMIA, ICE N/A 11/13/2017 [facility] TRANSURETHRAL RESECTION OF PROSTATE Family History [...] this encounter. There are no discontinued medications. [id number] Score: 1 0.6% Stroke risk per year, 0.9% risk of stroke/TIA/systemic embolism IMPRESSIONS/PLAN 1. Nonischemic cardiomyopathy ([facility]) - Echo complete W/O contrast; Future - POCT EKG 2. Chronic systolic heart failure ([facility]) - POCT EKG 3. Nonsustained ventricular tachycardia ([facility]) - POCT EKG 4. Status post ablation [...] GAYE HERNANDEZ Referring Physician: Park Yoder APRN-LILIANA [address] [place] [address] Pt would like to schedule testing at [facility]. Pt given echo orders. documented in this encounter [facility] 04-26-2024 Miscellaneous Notes Left message for patient to remind them to bring their most current medication list with them to their appointment. documented in this encounter [facility] 04-26-2024 Telephone encounter Note Left message for patient to remind them to bring their most current medication list with them to their appointment. [facility] 11-04-2023 History of Present illness Narrative Associated [...] cont current meds documented in this encounter [facility] 10-19-2023 Hospital Discharge instructions [...] urethra. Follow these instructions at home: Take ejle-bgb-ajhtarh and prescription medicines only as told by [...] provider. Document Revised: 04/02/2022 Document Reviewed: 04/02/2022 [employer] Patient Education 2022 [employer]. Follow Up Care 04/13/2023 16:26:55 With:ANAHI MCDONALD, Delma Ross, URL Address: [facility] [address] [place] [address]- When:Within 1 Year(s) Comments:w/PSA [facility] 04-13-2023 Hospital Discharge instructions Patient Education 04/13/2023 [...] the likelihood that the cancer will spread. [place] 6 or lower: This indicates that the cancer cells look similar to normal prostate cells (well differentiated). [place] 7: This indicates that the cancer cells look somewhat similar to normal prostate cells (moderately differentiated). [place] 8, 9, or 10: This indicates that [...] stress of having cancer. General instructions Take ersq-tvd-sbotzby and prescription medicines only as told by your health care provider. If you have to go to the hospital, notify your cancer specialist (oncologist). Keep all follow-up visits. This is important. Where to find more information [employer]: www.cancer.org Stat[employer] Society of Clinical Oncology: www.cancer.net National Cancer [place]: www.cancer.gov Contact a health care provider if: [...] provider. Document Revised: 12/11/2021 Document Reviewed: 12/11/2021 [employer] Patient Education 2022 [employer]. Follow Up Care 03/16/2023 14:05:40 With:Delma BRIGGS MD, URL Address: [facility] [address], [place] [address] [phone] When: Unknown Comments:6 mos w/ PSA and PVR [facility] [place] 11-03-2022 Hospital Discharge instructions Patient Education [...] urethra. Follow these instructions at home: Take dijf-uli-ttqgyeh and prescription medicines only as told by [...] 09/14/2006 Document Revised: 08/09/2019 Document Reviewed: 10/19/2017 [employer] Patient Education 2020 [employer] Follow Up Care 10/13/2022 13:53:44 With:ANAHI MCDONALD, DELANEY Conti Address: [facility] [address] , [place] [address]- When: Unknown [facility] 05-19-2022 Hospital Discharge instructions Patient Education 05/19/2022 16:24:13 Prostatitis, Zwnd-sb-Jzpm Prostatitis Prostatitis is swelling of the prostate gland. The prostate helps to make semen. It is below a man's bladder, in front of the rectum. There are different types of prostatitis. Follow these instructions at home: Take dhld-sza-sddwktj and prescription medicines only as told by [...] 03/15/2013 Document Revised: 08/27/2018 Document Reviewed: 06/04/2017 [employer] Patient Education 2020 [employer]. 05/19/2022 16:24:11 Calorie Counting for Weight Loss [...] 09/14/2006 Document Revised: 06/03/2019 Document Reviewed: 08/14/2017 [employer] Patient Education 2020 [employer] Follow Up Care 11/22/2021 12:25:13 With:ANAHI MCDONALD, Delma Ross, URL Address: [address] [place] [address] [place] [address]- Business (1) When:Within 6 Month(s) Comments:w/FESTUS [facility] 12-18-2021 Note OPERATIVE NOTE PREOPERATIVE DIAGNOSIS: [...] to the poor prep. CC: Park Yoder, TRACTOR ENGINE ASSEMBLER [facility] Signed and Approved by: DR ARY ARTEAGA . 12/20/2021 11:57:00 [facility] Evaluation + Plan note Future Appointments Appointment Date:05/19/2022 03:15:00 PM Scheduled Provider:Delma BRIGGS MD Location:[facility] Appointment Type:URO Office Visit [facility] [place] Evaluation + Plan note Future Appointments Appointment Date:11/24/2022 03:30:00 PM Scheduled Provider:Delma BRIGGS MD Location:[facility] Appointment Type:URO Office Visit Diagnostic Tests PendingPSA Total 05/19/22 [facility] Evaluation + Plan note Future Appointments Appointment Date:03/18/2023 08:30:00 AM Scheduled Provider:Delma BRIGGS MD Location:[facility] Appointment Type:URO Office Visit Diagnostic Tests PendingUroVysion Fish and Urine Cyto ([facility]) 11/04/22 [facility] Evaluation + Plan note Future Appointments Appointment Date:03/23/2023 03:00:00 PM Scheduled Provider:Delma BRIGGS MD Location:[facility] Appointment Type:URO Office Visit [facility] Evaluation + Plan note Future Appointments Appointment Date:10/19/2023 02:45:00 PM Scheduled Provider:Delma BRIGGS MD Location:[facility] Appointment Type:URO Office Visit Diagnostic Tests PendingPSA Total 04/13/23 [facility] Evaluation + Plan note Future Appointments Appointment Date:10/24/2024 03:00:00 PM Scheduled Provider:Delma BRIGGS MD Location:[facility] Appointment Type:URO Office Visit Diagnostic Tests PendingPSA Total 10/19/23 [facility] Evaluation + Plan note Future Appointments Appointment Date:10/23/2025 03:15:00 PM Scheduled Provider:Delma BRIGGS MD Location:[facility] Appointment Type:URO Office Visit Diagnostic Tests PendingPSA Total 10/24/24 [facility] Evaluation note Diagnosis Iron deficiency anemia following [...] bariatric surgery Hypocalcemia documented in this encounter [facility] HealthcareEvaluation note* Diagnosis Weakness- Primary Other malaise and fatigue Thrombocytopenia, unspecified (CMS/HCC) Thrombocytopenia, unspecified Hyperparathyroidism, unspecified (CMS/HCC) Hyperparathyroidism, unspecified Other ventricular tachycardia (CMS/HCC) Elevated liver function tests Other abnormal blood chemistry Iron deficiency anemia following bariatric surgery Primary hypertension (CMS/HCC) Unspecified essential hypertension Elevated parathyroid hormone Vitamin D deficiency documented in this encounter [facility] HealthcareEvaluation note* Diagnosis Nonischemic cardiomyopathy (CMS-HCC)- Primary Other primary cardiomyopathies Chronic systolic heart failure (CMS-HCC) Chronic systolic heart failure Nonsustained ventricular tachycardia (CMS-HCC) Status post ablation of ventricular arrhythmia Other postprocedural status [facility] Diagnosis Mixed hyperlipidemia- Primary [facility] Diagnosis Mixed hyperlipidemia- Primary [facility] Diagnosis Iron deficiency anemia following [...] data available for this section [facility] [place] [facility] Discharge instructions No data available for this section [facility] [place] InstructionsNot on filedocumented in this encounter [facility] [...] available for this section [facility] Summary Purpose Family History No Family [...] t Referred To Contact Diagnoses Nonischemic cardiomyopathy ([facility]) Procedures Echo complete W/O contrast Yisel Heart MD [address] [place] [address] Referral ID Status Reason Start Date Expiration Date V isits Requested Visits Authorized [id number] Pending Review 04/27/2024 04/27/2025 1 1 Additional [...] DATE CREATED AUTHOR AUTHOR'S ORGANIZ ATION 12/16/2021 [facility] DATE CREATED AUTHOR AUTHOR'S ORGANIZ ATION 11/28/2022 [facility] DATE CREATED AUTHOR AUTHOR'S ORGANIZ ATION 04/29/2024 [facility] DATE CREATED AUTHOR AUTHOR'S ORGANIZ ATION 10/28/2024 [facility] DATE CREATED AUTHOR AUTHOR'S ORGANIZ ATION 12/01/2024 [facility] dical Specialists EPIC Care Team (unrecognized sect ion and content) Adventure Therapist Relationship Specialty Start Date End Date Kenny Hartley MD [address] [place] [address] PCP - General Family Medicine 10/26/23 Adventure Therapist Relationship Specialty Start Date End Date Kenny Hartley MD [address] [place] [address] PCP - General Family Medicine 10/26/23 Adventure Therapist Relationship Specialty Start Date End Date Kenny Hartley MD [address] [place] [address] PCP - General Family Medicine 10/26/23 Park Yoder NP [address] [place] [address] [facility] 03/28/24 Adventure Therapist Relationship Specialty Start Date End Date Kenny Hartley MD [address] [place] [address] PCP - General Family Medicine 10/26/23 Park Yoder NP [address] [place] [address] PCP - [place] [employer] 03/28/24 Adventure Therapist Relationship Specialty Start Date End Date Kenny Hartley MD [address] [place] [address] PCP - General Family Medicine 10/26/23 Park Yoder NP [address] [place] [address] PCP - [place] [employer] 03/28/24 Adventure Therapist Relationship Specialty Start Date End Date Kenny Hartley MD [address] [place] [address] PCP - General Family Medicine 10/26/23 Park Yoder NP [address] [place] [address] PCP - [place] [employer] 03/28/24 Adventure Therapist Relationship Specialty Start Date End Date Kenny Hartley MD [address] [place] [address] PCP - General Family Medicine 10/26/23 Park Yoder NP [address] [place] [address] PCP - [place] [employer] 03/28/24 Adventure Therapist Relationship Specialty Start Date End Date Kenny Hartley MD [address] [place] [address] PCP - General Family Medicine 10/26/23 Park Yoder NP [address] [place] [address] PCP - [place] [employer] 03/28/24 Adventure Therapist Relationship Specialty Start Date End Date Kenny Hartley MD [address] [place] [address] PCP - General Family Medicine 10/26/23 Park Yoder NP [address] [place] [address] PCP - [place] [employer] 03/28/24 Adventure Therapist Relationship Specialty Start Date End Date Park Yoder, COMMUNITY MUSIC THERAPIST-TRACTOR ENGINE ASSEMBLER [address] [place] [address] PCP - General Nurse Practitioner 03/15/20 Adventure Therapist Relationship Specialty Start Date End Date Park Yoder, COMMUNITY MUSIC THERAPIST-TRACTOR ENGINE ASSEMBLER [address] [place] [address] PCP - General Nurse Practitioner 03/15/20 Adventure Therapist Relationship Specialty Start Date End Date Park Yoder, COMMUNITY MUSIC THERAPIST-TRACTOR ENGINE ASSEMBLER [address] [place] [address] PCP - General Nurse Practitioner 03/15/20 Adventure Therapist Relationship Specialty Start Date End Date Park Yoder [facility] [address] [place] [address] PCP - General Nurse Practitioner 03/15/20 Adventure Therapist Relationship Specialty Start Date End Date Park Yoder, [facility] PCP - General Nurse Practitioner 03/15/20 Adventure Therapist Relationship Specialty Start Date End Date Park Yoder [facility] PCP - General Nurse Practitioner 03/15/20 Adventure Therapist Relationship Specialty Start Date End Date Park Yoder, [facility] PCP - General Nurse Practitioner 03/15/20 Adventure Therapist Relationship Specialty Start Date End Date Kenny Hartley MD [address] [place] [address] PCP - General Family Medicine 10/26/23 Prak Yoder NP [address] [place] [address] PCP - [place] [employer] 03/28/24 Adventure Therapist Relationship Specialty Start Date End Date Kenny Hartley MD [address] [place] [address] PCP - General Family Medicine 10/26/23 Park Yoder NP [address] [place] [address] PCP - [facility] 03/28/24 Reason for [...] BE BASED ON THE PRIMARY CLINICAL RECORDS. [employer] [facility]. provides no warranty or guarantee of the accuracy or completeness of information in this document.
[2025-04-11 08:05] LABS: Magnesium 2.2 mg/dL (1.8-2.4)
== END 2025-04-11 07:04 | disposition home or self-care (01) ==
LOC: LAB 07:05
PROVIDERS: PCP Nurse Practitioner; Visit Provider Internal Medicine
DX: E83.51 Hypocalcemia (principal); R79.89 Other specified abnormal findings of blood chemistry
CPT/HCPCS: 36415; 82310; 83735; 83970; 84100

== ENCOUNTER 2025-05-11 16:09 | Outpatient (OUT) | payer BC, SELFPAY ==
--- NOTE | 2025-05-11 16:09 | CA_ITS ---
Patient Name: SHABNAM BURGESS MR#: [id number] : 1955 Exam Date: 05/11/2025 Ordering Doctor: NON-STAFF PHYSICIAN ECHOCARDIOGRAM REPORT PROCEDURE: CA ECHO DOPPLER COMPLETE INDICATIONS: Nonischemic Cardiomyopathy, Chronic CHF COMPARISON: None. DESCRIPTION: COMPLETE ECHOCARDIOGRAM Real-time transthoracic echocardiography with 2D, M-mode, spectral and color flow Doppler performed. QUALITY: Technical quality was good. LEFT VENTRICLE: Normal chamber size. Moderate concentric left ventricular hypertrophy. Global left ventricular systolic function is normal. LV EF: Estimated left ventricular ejection fraction is 55-60%. DIASTOLIC: Normal diastolic function. ATRIAL SEPTUM: LEFT ATRIUM: Severe dilatation. RIGHT ATRIUM: Moderate dilatation. RIGHT VENTRICLE: Mild dilatation. Mildly reduced right ventricular systolic function. TRICUSPID VALVE: Normal mobility and thickness. No stenosis with mild regurgitation. No evidence of pulmonary hypertension. RVSP 26 mmHg. MITRAL VALVE: Mildly thickened with normal mobility. No evidence of mitral valve stenosis. There is no mitral annular calcification. Mild mitral regurgitation. AORTIC VALVE: Normal trileaflet appearance. Thickened aortic valve. Normal leaflet mobility. No evidence of aortic valve stenosis. Trivial aortic regurgitation. AORTIC ROOT: Normal diameter and appearance, measuring 3.8 cm. The ascending aorta is normal in size, measure 3.2 cm. PULMONIC VALVE: Normal thickness and mobility. No stenosis. No regurgitation. PERICARDIUM: Trivial pericardial effusion. IVC: Not well visualized. PLEURA: CONCLUSION: 1. Moderate concentric left ventricular hypertrophy with normal systolic function. Estimated LVEF is 55 to 60%. 2. Mildly dilated right ventricle with mildly reduced systolic function. 3. Normal diastolic function. 4. Moderate severe biatrial dilatation. 5. Mild mitral and tricuspid regurgitation. 6. Normal right-sided pressures. Adult Echocardiography Procedure Report Left Ventricle LVEDD (3.7 - 5.6 cm): 4.59 cm LVESD (2.2 - 4.0 cm): 3.25 cm LVIVS thickness (0.6 - 1.2 cm): 1.49 cm LVPW thickness (0.5 - 1.0 cm): 1.32 cm e': 0.10 m/s E - e': 5.46 LVOT Max Gradient: 3.45 mm[Hg] LVOT Area (cm2): 0.93 m/s Peak Velocity (LVOT): 0.93 m/s Mean Velocity (LVOT): 0.66 m/s LVOT Diameter 2.20 cm Left Ventricular Ejection Fraction: 55-60 % Left Atrium LA Volume Index (2D A2C): 54.40 ml/m2 Left Atrium Systolic Dimension: 5.34 cm Mitral Valve MV E to A Ratio: 0.67 Mitral Valve A-Wave Peak Velocity: 0.81 m/s Mitral Valve E-Wave Peak Velocity: 0.54 m/s Right Ventricle RV Internal Diastolic Dimension: 4.64 cm Aorta AO Root Diam: 3.80 cm Ascending Ao Diam: 3.25 cm Aortic Valve AoV Area (Peak Reji): 3.05 cm2, 3.05 cm2 AoV Area (VTI): 3.33 cm2, 3.33 cm2 Peak Velocity(Antegrade Flow): 1.15 m/s Peak Gradient(Antegrade Flow): 5.31 mm[Hg] Mean Velocity(Antegrade Flow): 0.77 m/s Mean Gradient(Antegrade Flow): 2.83 mm[Hg] Velocity Time Integral: 26.54 cm Tricuspid Valve Peak Velocity (Regurgitant Flow): 2.01 m/s, 2.40 m/s Pulmonic Valve Peak Velocity: 1.09 m/s Peak Gradient: 5.02 mm[Hg], 4.46 mm[Hg] Right Atrium Right Atrium Systolic Pressure: 91.35 ml, 91.35 ml Dictated by: Wilfrid Hobbs M.D. on 05/11/2025 at 22:32 Approved by: Wilfrid Hobbs M.D. on 05/11/2025 at 22:36
--- OUTSIDE RECORDS SUMMARY | 2025-05-11 16:12 | XMS_ITS | Encounter Summary ---
Author Organization [facility] Address [address] [place] [address] Care Team Providers Care Facs Teacher Name Role Phone Kenny Hartley MD Primary Care Provider [phone] Park Yoder GAS PUMPING STATION SUPERVISOR Unavailable [phone] Encounter Details Date Type Department Care Team (Late Contact Info) Description 04/03/2024 Clinisync Result Encounter [facility] External Department Unsolicited Park Yoder, GAS PUMPING STATION SUPERVISOR [address] [place] [address] Social History Tobacco Use Types Packs/Day Years Used Date Smoking Tobacco: Never Alcohol Use Standard Drinks/Week Comments Not Currently 0 (1 standard drink = 0.6 oz pur e alcohol) caffine: 3 cups daily Sex and Gender Information Value Date Recorded Sex Assigned at Not on file Legal Sex Male 8:22 AM EDT Gender Identity Not on file Sexual Orientation Not on file documented as of this encounter Plan of Treatment Upcoming Encounters Date Type Department Care Team (Late Contact Info) Description 05/23/2025 2:00 PM EDT Office Visit [facility] [place] [facility] [address] [place] [address] Vijay Ng MD [address] [place] [address] 06/08/2025 3:00 PM EDT [facility] [address] [place] [address] Park Yoder NP [address] [place] [address] documented as of this encounter Procedures Procedure Name Priority Date/Time Associated Diagnosis Comments US RIGHT UPPER QUADRANT 04/03/2024 7:07 PM EDT documented in this encounter Results * US RIGHT UPPER QUADRANT (04/03/2024 7:07 PM EDT) Anatomical Region Laterality Modality Other 04/03/2024 7:07 PM EDT Narrative 04/03/2024 7:09 PM EDT [place] [id number] Ultrasound Report Signed Patient: SHABNAM BURGESS MR#: [id number] : 1955 Acct:[id number] Age/Sex: 68 / M ADM Date: 04/02/24 Loc: US Attending Dr: Park Yoder NP Ordering Physician: Park Yoder NP Date of Service: 04/02/24 Procedure(s): US right upper quadrant Accession Number(s): [id number] cc: Park Yoder NP [address] [address] Patient Name: SHABNAM BURGESS MRN: [id number] date: 1955 Sex: M Assigned Patient Location: US Current Patient Location: US Accession/Order Number: [id number] Exam Date: 04/02/2024 08:36 Report Date: 04/03/2024 19:07 At the request of: PARK YODER Procedure: US right upper quadrant PROCEDURE: US right upper quadrant, 04/02/2024 8:36 AM EDT CLINICAL INDICATIONS: Elevated liver function tests, cholecystectomy COMPARISON: CT abdomen and pelvis 04/30/2022 TECHNIQUE: Right upper quadrant abdominal sonogram, grayscale, color evaluation. FINDINGS: Fat infiltration or atrophy of the visualized pancreas is noted. Ductal dilatation is not evident. Majority of head and tail segments obscured. Hepatic assessment limited given necessity for intercostal imaging. Right lobe is enlarged up to 20 cm longitudinally. Visualized portal vein patent, antegrade flow. Normal velocity 34 cm/s. Coarsened echotexture is seen. Contour is smooth. Focal abnormality not demonstrated. Gallbladder surgically absent. Common bile duct normal 0.2 cm. Right kidney: 11.1 x 5.3 x 4.5 cm. A 0.8 x 0.6 x 0.8 cm upper pole right renal cyst noted. Nephrolithiasis or hydronephrosis is not evident. No free fluid. US/US right upper quadrant IMPRESSION: 1. Fatty infiltration or atrophy of the visualized pancreas. 2. Hepatomegaly, coarsened echotexture, no focal abnormality. 3. Cholecystectomy, no biliary dilatation. 4. 0.8 cm benign-appearing right renal cyst. Electronically authenticated by: SAM WILSON Date: 04/03/2024 19:07 Dictated By: Sam Wilson M.D. Signed By: 04/03/241908 DD/ 06 TD/TT: Tool Polisher: Procedure Note Radiology, Radiologist, MD - 04/03/2024 The [place] [id number] Ultrasound Report Signed Patient: SHABNAM BURGESS FMR#: [id number] : 1955cct:[id number] Age/Sex: 68 / MADM Date: 04/02/24 Loc: US Attending Dr: Park Yoder NP Ordering Physician: Park Yoder NP Date of Service: 04/02/24 Procedure(s): US right upper quadrant Accession Number(s): [id number] cc: Park Yoder NP The [address] [address] Patient Name: SHABNAM BURGESS MRN: [id number] date: 1955 Sex: M Assigned Patient Location: US Current Patient Location: US Accession/Order Number: [id number] Exam Date: 04/02/2024 08:36 Report Date: 04/03/2024 19:07 At the request of: PARK YODER Procedure: US right upper quadrant PROCEDURE: US right upper quadrant, 04/02/2024 8:36 AM EDT CLINICAL INDICATIONS: Elevated liver function tests, cholecystectomy COMPARISON: CT abdomen and pelvis 04/30/2022 TECHNIQUE: Right upper quadrant abdominal sonogram, grayscale, color evaluation. FINDINGS: Fat infiltration or atrophy of the visualized pancreas is noted. Ductal dilatation is not evident. Majority of head and tail segments obscured. Hepatic assessment limited given necessity for intercostal imaging. Rightlobe is enlarged up to 20 cm longitudinally. Visualized portal vein patent, antegrade flow. Normal velocity 34 cm/s. Coarsened echotexture is seen. Contour is smooth. Focal abnormality not demonstrated. Gallbladder surgically absent. Common bile duct normal 0.2 cm. Right kidney: 11.1 x 5.3 x 4.5 cm. A 0.8 x 0.6 x 0.8 cm upper pole rightrenal cyst noted. Nephrolithiasis or hydronephrosis is not evident. No free fluid. US/US right upper quadrant IMPRESSION: 1. Fatty infiltration or atrophy of the visualized pancreas. 2. Hepatomegaly, coarsened echotexture, no focal abnormality. 3. Cholecystectomy, no biliary dilatation. 4. 0.8 cm benign-appearing right renal cyst. Electronically authenticated by: SAM WILSON Date: 04/03/2024 19:07 Dictated By: Sam Wilson M.D. Signed By:04/03/241908 DD/ 06 TD/TT: Tool Polisher: Park Yoder NP [facility] Final Result documented in this encounter Visit Diagnoses Not on filedocumented in this encounter Care Teams Facs Teacher Relationship Specialty Start Date End Date Kenny Hartley MD [address] [place] [address] PCP - General Family Medicine 10/26/23 Park Yoder NP [address] [place] [address] PCP - [place] [employer] 03/28/24 documented as of this encounter
--- OUTSIDE RECORDS SUMMARY | 2025-05-11 16:12 | XMS_ITS | Encounter Summary ---
Author Organization [facility] [employer] Sys [employer] Address [id number] [address] [place] [address] Care Team Providers Care Secondary Set Up Man Name Role Phone TatianagalindoquianaPark Vin SECURITY DOOR INSTALLERPAUL [facility] [employer] Primary Care Provider Reason for Visit * Reason Comments Med Refill Encounter Details Date Type Department Care Team (Late st Contact Info) Description 05/05/2022 Refill [facility] [address] [place] [address] Viry Campos, SECURITY DOOR INSTALLERPAUL [employer] [employer] [facility] [employer] [address] [place] [address] Med Refill Social History Tobacco Use Types Packs/Day Years Used Date Smoking Tobacco: Former Cigars Smokeless Tobacco: Never Comments:smokes a cigar occa sionally Alcohol Use Standard Drinks/Week Comments Yes 7 (1 standard drink = 0.6 oz pur e alcohol) 1 drink per day Childcare Answer Date Recorded Childcare Unknown 03/09/2019 Employment Answer Date Recorded Employment Unknown 03/09/2019 Purpose - Life Answer Date Recorded Purpose and direction in life Unknown Sex and Gender Information Value Date Recorded Sex Assigned at Not on file Legal Sex Male 11:28 AM EDT Gender Identity Not on file Sexual Orientation Not on file documented as of this encounter Miscellaneous Notes * Telephone Encounter - Makenzie Roberson RN - 05/05/2022 12:58 PM EDT Images from the original note were not included. P/c from patient requesting med refills, bond writer let pt know he will need to complete updated fasting labs prior. Pt would like the orders mailed to him. Pt l/s FRS 11/12/21 atorvastatin (LIPITOR) 40 mg tablet Take 1 tablet (40 mg total) by mouth daily ??? lisinopriL (PRINIVIL,ZESTRIL) 5 mg tablet Take 1 tablet (5 mg total) by mouth daily. metoprolol succinate 25 mg oral 2 times daily 11/30/20 Lipids, CMP * Telephone Encounter - Makenzie Roberson RN - 05/05/2022 12:58 PM EDT Labs printed and mailed today documented in this encounter Plan of Treatment Upcoming Encounters Date Type Department Care Team (Late st Contact Info) Description 06/15/2025 2:15 PM EDT Office Visit [facility] [address] [place] [phone] Angela Barney PA-C [address] [place] [address] Jorge Storm MD [address] [place] [address] documented as of this encounter Results * Comprehensive metabolic panel (05/16/2022) 05/16/2022 us Shanel Bonilla SECURITY DOOR INSTALLER-[employer] [facility]IE[facility] LAB BLOOD ORDERABLES Final Result [facility] * Lipid profile (05/16/2022) External Cholesterol 58 [facility] External Cholesterol:Hdl 1.5 [facility] External Hdl Cholesterol 38 [facility] External Ldl (Calc) 14.0 [facility] External Triglycerides 30 [facility] External Very Low Lipoprotein 6.0 [facility] 05/16/2022 Shanel HUIZAR LAB BLOOD ORDERABLES Final Result [facility] documented in this encounter Visit Diagnoses Diagnosis Hyperlipidemia, unspecified hyperlipidemia type- Primary Nonischemic cardiomyopathy (CMS-HCC) Other primary cardiomyopathies Chronic systolic congestive heart failure (CMS-HCC) documented in this encounter Care Teams Secondary Set Up Man Relationship Specialty Start Date End Date Park Yoder APRN-CNP PCP - General Nurse Practitioner 03/15/20 documented as of this encounter
--- OUTSIDE RECORDS SUMMARY | 2025-05-11 16:12 | XMS_ITS | Encounter Summary ---
Author Organization [facility] [facility] Address [id number] [address] [place] [address] Care Team Providers Care Store Management Trainee Name Role Phone Park Yoder Vin CHOCOLATE MAKER-MEDICATION TECHNICIAN Primary Care Provider Reason for Visit * Reason Comments Med Refill Encounter Details Date Type Department Care Team ([facility] st Contact Info) Description 04/24/2023 Refill [facility] [address] [place], [place] [address] [address] Christofer Beltran, CHOCOLATE MAKER-MEDICATION TECHNICIAN [address] [place] [address] Med Refill Social History Tobacco Use Types Packs/Day Years Used Date Smoking Tobacco: Former Cigars Smokeless Tobacco: Never Comments:smokes a cigar occa sionally Alcohol Use Standard Drinks/Week Comments Yes 7 (1 standard drink = 0.6 oz pur e alcohol) 1 drink per day Childcare Answer Date Recorded Childcare Unknown 03/09/2019 Employment Answer Date Recorded Employment Unknown 03/09/2019 Hunger Screening Answer Date Recorded Within the past 12 months we worried whether our food would run out before we got money to buy more. Never True 10/15/2022 Within the past 12 months th e food we bought just didn't last and we didn't have money to get more. Never True 10/15/2022 Purpose - Life Answer Date Recorded Purpose [...] Cardiology [address] [place] [address] Angela Barney PA-C [address] [place] [address] Jorge Storm MD [address] [place], [place] [address] documented as of this encounter Visit Diagnoses Not on filedocumented in this encounter Care Teams Store Management Trainee Relationship Specialty Start Date End Date Park Yoder APRN-MEDICATION TECHNICIAN PCP - General Nurse Practitioner 03/15/20 documented as of this encounter
--- OUTSIDE RECORDS SUMMARY | 2025-05-11 16:12 | XMS_ITS | Encounter Summary ---
Author Organization [facility] Address [address] [place] [address] Care Team Providers Care Survey Manager Name Role Phone Kenny Hartley MD Primary Care Provider [phone] Park Yoder VP RHEUMATOLOGY Unavailable [phone] Encounter Details Date Type Department Care Team (Late Contact Info) Description 04/04/2024 Orders Only [facility] [address] [place] [address] Park Yoder, VP RHEUMATOLOGY [address] [place] [address] Social History Tobacco Use Types Packs/Day Years [...] Description 05/23/2025 2:00 PM EDT Office Visit [facility] [address] [place] [address] Vijay Ng MD [address] [place] [address] 06/08/2025 3:00 PM EDT Office Visit [facility] [address] [place] [address] Park Yoder NP [address] [place] [address] documented as of this encounter Procedures Procedure Name Priority Date/Time Associated Diagnosis Comments SCANNED LABS Routine 04/04/2024 10:00 AM EDT documented in this encounter Results * SCANNED LABS (04/04/2024 10:00 AM EDT) us Park Yoder VP RHEUMATOLOGY LAB CHG PERFORMABLES Final Resu lt documented in this encounter Visit Diagnoses Not on filedocumented in this encounter Care Teams Survey Manager Relationship Specialty Start Date End Date Kenny Hartley MD [address] [place] [address] PCP - General Family Medicine 10/26/23 Park Yoder NP [address] [place] [address] PCP - [place] [employer] 03/28/24 documented as of this encounter
--- OUTSIDE RECORDS SUMMARY | 2025-05-11 16:12 | XMS_ITS | Encounter Summary ---
Author Organization [facility] [employer] Sys tem Address [id number] [address] [place] [address] Care Team Providers Care Tire Rebuilder Name Role Phone TatianaPark allen Vin MANUFACTURING RECRUITER-DOT NET ARCHITECT Primary Care Provider Reason for Visit * Reason Comments Med Refill Encounter Details Date Type Department Care Team ([facility] st Contact Info) Description 11/02/2024 Refill [facility] [address] [place] [address] Christofer Beltran, MANUFACTURING RECRUITER-DOT NET ARCHITECT [address] [place] [address] Med Refill Social History Tobacco Use Types [...] encounter Miscellaneous Notes * Telephone Encounter - Yin Fuller RN - 11/02/2024 5:40 AM EST Dose is currently Atorvastatin 20 mg daily documented in this encounter Plan of Treatment Upcoming Encounters Date Type Department Care Team (Late st Contact Info) Description 06/15/2025 2:15 PM EDT Office Visit [facility] [address] [place] [address] Angela Barney PA-C [address] [place] [address] Jorge Storm MD [address] [place], [place] [address] documented as of this encounter Visit Diagnoses Not on filedocumented in this encounter Care Teams Tire Rebuilder Relationship Specialty Start Date End Date Park Yoder, MANUFACTURING RECRUITER-DOT NET ARCHITECT PCP - General Nurse Practitioner 03/15/20 documented as of this encounter
--- OUTSIDE RECORDS SUMMARY | 2025-05-11 16:12 | XMS_ITS | Encounter Summary ---
Author Organization [facility] Address [address] [place] [address] Care Team Providers Care Campaign Coordinator Name Role Phone Kneny Hartley MD Primary Care Provider [phone] Park Yoder TRUCK WASHER Unavailable [phone] Encounter Details Date Type Department Care Team (Late Contact Info) Description 02/19/2024 Clinisync Result Encounter [facility] Department Unsolicited Park Yoder, TRUCK WASHER [address] [place] [id number] Social History Tobacco Use Types Packs/Day Years [...] [facility] [address] [place] [phone] Vijay Ng MD [address] [place] [address] 06/08/2025 3:00 PM EDT [facility] [address] [place] [address] Park Yoder NP [address] [place] [address] documented as of this encounter Procedures Procedure Name Priority Date/Time Associated Diagnosis Comments XR CERVICAL SPINE 2-3V 02/19/2024 9:35 AM EDT documented in this encounter Results * XR CERVICAL SPINE 2-3V (02/19/2024 9:35 AM EDT) Anatomical Region Laterality Modality Other 02/19/2024 9:35 AM EDT Narrative 02/19/2024 9:38 [place] [address] XRay Report Signed Patient: SHABNAM BURGESS MR#: [id number] : 1955 Acct:[id number] Age/Sex: 68 / M ADM Date: 02/18/24 Loc: LAB Attending Dr: Park Yoder TRUCK WASHER Ordering Physician: Park Yoder NP Date of Service: 02/18/24 Procedure(s): XR cervical spine 2-3V Accession Number(s): [id number] cc: Park Yoder NP [facility] [place] [address] Patient Name: SHABNAM BURGESS MRN: [id number] date: 1955 Sex: M Assigned Patient Location: LAB Current Patient Location: LAB Accession/Order Number: [id number] Exam Date: 02/18/2024 15:25 Report Date: 02/19/2024 09:35 At the request of: PARK YODER Procedure: XR cervical spine 2-3V EXAMINATION: XR cervical spine 2-3V HISTORY: Degenerative disc disease, cervical M50.30 ; weakness COMPARISON: No relevant comparison available. FINDINGS: BONES: Prominent kyphosis of the visible upper thoracic spine. Normal height, alignment, curvature of the cervical spine. Multilevel mild degenerative facet arthropathy. DISC SPACES: No significant disc height narrowing, subluxation, or endplate abnormality. PARASPINOUS: Negative. No paraspinous abnormality is seen. OTHER: Negative. XR/XR cervical spine 2-3V IMPRESSION: 1. No acute or significant degenerative changes of the cervical spine. Mild degenerative facet arthropathy. 2. Thoracic kyphosis. Electronically authenticated by: SILVANO CADENA Date: 02/19/2024 09:35 Dictated By: Silvano Cadena M.D. Signed By: 02/19/2438 DD/ TD/TT: Mechanical Lead: Procedure Note Radiology, Radiologist, MD - 02/19/2024 [place] [address] XRay Report Signed Patient: SHABNAM BURGESS FMR#: [id number] : 1955cct:[id number] Age/Sex: 68 / MADM Date: 02/18/24 Loc: LAB Attending Dr: Park Yoder NP Ordering Physician: Park Yoder NP Date of Service: 02/18/24 Procedure(s): XR cervical spine 2-3V Accession Number(s): [id number] cc: Park Yoder NP [facility] [place] [address] Patient Name: SHABNAM BURGESS MRN: [facility]:[id number] date: 1955 Sex: M Assigned Patient Location: LAB Current Patient Location: LAB Accession/Order Number: [id number] Exam Date: 02/18/2024 15:25 Report Date: 02/19/2024 09:35 At the request of: PARK YODER Procedure: XR cervical spine 2-3V EXAMINATION: XR cervical spine 2-3V HISTORY: Degenerative disc disease, cervical M50.30 ; weakness COMPARISON: No relevant comparison available. FINDINGS: BONES: Prominent kyphosis of the visible upper thoracic spine. Normalheight, alignment, curvature of the cervical spine. Multilevel mild degenerativefacet arthropathy. DISC SPACES: No significant disc height narrowing, subluxation, orendplate abnormality. PARASPINOUS: Negative. No paraspinous abnormality is seen. OTHER: Negative. XR/XR cervical spine 2-3V IMPRESSION: 1. No acute or significant degenerative changes of the cervical spine.Mild degenerative facet arthropathy. 2. Thoracic kyphosis. Electronically authenticated by: SILVANO CADENA Date: 02/19/2024 09:35 Dictated By: Silvano Cadena M.D. Signed By:02/19/24937 DD/ 4 TD/TT: Mechanical Lead: us Park Yoder NP [facility] Final Result documented in this encounter Visit Diagnoses Not on filedocumented in this encounter Care Teams Campaign Coordinator Relationship Specialty Start Date End Date Kenny Hartley MD [address] [place] [address] PCP - General Family Medicine 10/26/23 Park Yoder NP [address] [place] [address] PCP - Lay Browne 03/28/24 documented as of this encounter
--- OUTSIDE RECORDS SUMMARY | 2025-05-11 16:12 | XMS_ITS | Clinical Summary ---
Author Organization [facility] Healthcare Address [address] [place] [address] Care Team Providers Care Retail Coverage Merchandiser Lead Name Role Phone Kenny Hartley MD Primary Care Provider [phone] Allergies No known active allergies Medications atorvastatin (Lipitor) 40 MG tablet Take 1 tablet by mouth in the morning. 08/06/20 23 Active dutasteride (Avodart) 0.5 MG capsule Take 1 capsule by mouth in the morning. 09/08/20 23 Active fluticasone (Flonase) 50 MCG/ACT nasal spray Administer 2 sprays into each nostril in the morning. 03/03/20 23 Active lisinopril 5 MG tablet Take 1 tablet by mouth in the morning. 08/06/20 23 Active metoprolol succinate XL (Toprol-XL) 25 MG 24 hr tablet Take 1 tablet by mouth in the morning. 07/09/20 23 Active Multiple Vitamin (multivitamin) tablet Take 1 tablet by mouth in the morning. Active aspirin 81 MG EC tablet Take 81 mg by mouth Daily Active ferrous sulfate 325 (65 Fe) MG tablet Take 325 mg by mouth in the morning and 325 mg before bedtime. Active Cholecalciferol (VITAMIN D3 GUMMIES ADULT PO) Take by mouth 4 (four) times a day Active ergocalciferol (Vitamin D2) 1.25 MG (48322 UT) capsuleIndicatio ns:Other specified abnormal findings of blood chemistry Take 1 capsule by mouth once a week 12 capsule 1 05/01/20 25 Active ergocalciferol (Vitamin D2) 1.25 MG (04014 UT) capsuleIndicatio ns:Other specified abnormal findings of blood chemistry Take 1 capsule by mouth once a week 12 capsule 1 11/14/19 25 025 Discontinued ciprofloxacin (Cipro) 500 MG tabletIndication s:UTI (urinary tract infection), uncomplicated Take 1 tablet (500 mg) by mouth in the morning and 1 tablet (500 mg) before bedtime. Do all this for 7 days. 14 tablet 04/11/20 25 025 Active Problems Problem Noted Date Diagnosed Date UTI (urinary tract infection), uncomplicated Iron deficiency anemia secon claudette to inadequate dietary iron intake 02/13/2025 Thrombocytopenia, unspecified 05/25/2024 Assessment & Plan (05/25/2024 4:36 PM EDT): Recheck CBC Hyperparathyroidism, unspecified 05/25/2024 Assessment & Plan (05/25/2024 4:36 PM EDT): Continue with Endo for this Possibly related to vit d def Neuropathy 05/02/2024 Status post ablation of ventricular arrhythmia 0 04/27/2024 Vitamin D deficiency 04/05/2024 Assessment & Plan (05/25/2024 4:36 PM EDT): As per endo recommendations Hypocalcemia 03/30/2024 DDD (degenerative disc disease), cervical 2023 Assessment & Plan (02/18/2024 1:43 PM EDT): Suspect this is the cause , will check xray Refer to Neurology and may need MRI pending xray results DDD (degenerative disc disease), lumbar 02/18/20 Assessment & Plan (03/30/2024 11:44 AM EDT): Reviewed xray for the lumbar spine: DDD, as well as facet arthritis Has been doing PT, not a lot of improvement Will obtain MRI lumbar spine, will need an open MRI, will send to [facility] Suspect some nerve compression as well Has appt with Neurology r/s for 04/06/24 keep this, likely will need EMG s Assessment & Plan (02/18/2024 1:42 PM EDT): Check xray Refer to Neurology Will likely need MRI pending results for xray Paresthesia of both feet 02/18/2024 Assessment & Plan (02/18/2024 1:41 PM EDT): Suspect radiculopathy, however Vit B12 def is possible too Check B12 level Weakness 02/18/2024 Assessment & Plan (05/25/2024 4:36 PM EDT): improving Assessment & Plan (02/18/2024 1:43 PM EDT): Reviwed CBC, iron, ferritin, as well as chem 8 Will check sed rate, crp, vit b12 and hepatic Elevated liver function tests 02/18/2024 Assessment & Plan (05/25/2024 4:35 PM EDT): Enlarged liver on US, no masses Will recheck LFT including a GGT test Assessment & Plan (03/30/2024 11:42 AM EDT): Recheck labs, and needs US liver BMI 37.0-37.9, adult 11/04/2023 HTN (hypertension) 11/04/2023 Assessment & Plan (08/18/2024 7:55 AM EST): Please check blood pressure daily and record DASH diet Limit caffeine Take medication as directed Contact office if chest pain, pressure, dizziness, shortness of breath, swelling legs Recommend slow position changes Continue with anuel and b ridge Assessment & Plan (05/25/2024 4:35 PM EDT): Stable no med dose changes Assessment & Plan (02/18/2024 1:42 PM EDT): Stable cont with cardiology Assessment & Plan (11/04/2023 4:06 PM EST): Stable cont with cardiology H/O bariatric surgery 11/04/2023 Assessment & Plan (08/18/2024 7:55 AM EST): Continue with vitamins As well as iron supplements Assessment & Plan (11/04/2023 4:05 PM EST): Continue with vitamins Labs due 04/20 Hyperlipidemia 11/04/2023 Assessment & Plan (11/04/2023 4:06 PM EST): Stable cont current meds Right bundle branch block 12/01/2017 Nonischemic cardiomyopathy 09/18/2017 Overview (11/04/2023): Added automatically from request for surgery [id number] Other ventricular tachycardia 05/12/2017 Chronic systolic heart failure 04/09/2017 Overview (11/04/2023): Added automatically from request for surgery [id number] Assessment & Plan (08/18/2024 7:55 AM EST): Continue current meds Continue with periodic cardiology appts Assessment & Plan (11/04/2023 4:06 PM EST): Continues with cardiology Calculus of kidney 01/15/2014 Resolved Problems Problem Noted Date Diagnosed Date Resolved Date Elevated parathyroid hormone 04/05/2024 05/25/2024 Acute cystitis without hematuria 02/18/2024 05/25/2024 Assessment & Plan (03/30/2024 11:42 AM EDT): Recheck urine Iron deficiency anemia follo wing bariatric surgery 11/04/2023 02/13/2025 Assessment & Plan (05/25/2024 4:36 PM EDT): Will recheck his cbc iron ferritin Assessment & Plan (01/07/2024 1:23 PM EDT): Order for IV Venofere 750mg IV X2 doses 7 days apart Assessment & Plan (11/04/2023 4:05 PM EST): Labs from 7/23 good Feels good Recheck labs 04/20 Paroxysmal ventricular tachycardia 09/18/2017 05/25/2024 Overview (11/04/2023): Added automatically from request for surgery [id number] Encounters Date Type Department Care Team Description 05/01/2025 Refill [facility] [place] [facility] [address] [place] [phone] Vijay Ng MD Other specified abnormal findings of blood chemistry 04/11/2025 Refill [facility] [address] [facility] [place] [address] Park Yoder NP UTI (urinary tract infection), uncomplicated (Primary Dx) 04/11/2025 Clinisync Result Encounter [facility] External Department Unsolicited Park Yoder NP from Last 3 Months Immunizations Immunization Administration Dates Next Due DTP 06/16/2020 Influenza, High-dose Seasona l, Quadrivalent, Preservative Free 08/03/2024,08/12/2023 Family History Medical History Relation Name Comments Gout Father Heart attack Father Heart disease Father COPD Mother Cancer Mother Smoker Mother Relation Name Status Comments Father Mother Social History Tobacco Use Types Packs/Day Years Used Date Smoking Tobacco: Some Days Cigars Smokeless Tobacco: Never Tobacco Cessation:Ready to Q uit: Not Asked; Counseling Given: Not Answered Alcohol Use Standard Drinks/Week Comments Not Currently 0 (1 standard drink = 0.6 oz pur e alcohol) caffine: 3 cups daily Sex and Gender Information Value Date Recorded Sex Assigned at Not on file Legal Sex Male 8:22 AM EDT Gender Identity Not on file Sexual Orientation Not on file Last Filed Vital Signs Vital Sign Reading Time Taken Comments Blood Pressure 122/78 08/18/2024 4:00 PM EST Pulse 70 11/29/2024 1:49 PM EST Temperature 36.7 C (98.1 F) 08/18/2024 4:00 PM EST Respiratory Rate 16 11/29/2024 1:49 PM EST Oxygen Saturation 94% 11/29/2024 1:49 PM EST Inhaled Oxygen Concentration - - Weight 106 kg (233 lb) 11/29/2024 1:49 PM EST Height 180.3 cm (5' 11 ) 11/29/2024 1:49 PM EST Body Mass Index 32.5 11/29/2024 1:49 PM EST Plan of Treatment Upcoming Encounters Date Type Department Care Team (Late st Contact Info) Description 05/23/2025 2:00 PM EDT Office Visit [facility] [place] [address] [place] [address] Vijay Ng MD [address] [place] [address] 06/08/2025 3:00 PM EDT Office Visit [facility] [address] [place] [address] Park Yoder NP [address] [place] [address] Health Maintenance Due Date Last Done Comments CT Colonography 1957 FIT-DNA 1957 FIT 1957 FOBT 1957 Sigmoidoscopy 1957 Colonoscopy 12/28/2023 12/18/2021, 12/18/2021 Colorectal Cancer Screening 12/28/2023 Influenza Vaccine (#1) 2025 08/03/2024, 2022 Pneumococcal Vaccine: 65+ Years Discontinued Procedures Procedure Name Priority Date/Time Associated Diagnosis Comments PTH, INTACT WITHOUT CALCIUM Routine 04/12/2025 1:27 PM EDT Hyperparathyroidism, unspecified (HCC) VITAMIN D 25 HYDROXY TOTAL Routine 04/11/2025 11:18 AM EDT Vitamin D deficiency MAGNESIUM Routine 04/11/2025 9:12 AM EDT Hypocalcemia MICROALBUMIN / CREATININE URINE RATIO Routine 04/11/2025 9:10 AM EDT Primary hypertension COMPREHENSIVE METABOLIC PANEL Routine 04/11/2025 9:10 AM EDT Chronic systolic heart failure (HCC) Primary hypertension Mixed hyperlipidemia Vitamin D deficiency Elevated liver function tests CBC (INCLUDES DIFF/PLT) Routine 04/11/2025 9:10 AM EDT Thrombocytopenia, unspecified Iron deficiency anemia secondary to inadequate dietary iron intake LIPID PANEL Routine 04/11/2025 9:10 AM EDT Mixed hyperlipidemia HMHP PTH, INTRAOPERATIVE Routine 04/11/2025 7:20 AM EDT TRANSFERRIN Routine 04/11/2025 7:20 AM EDT ALL MISCELLANEOUS TEST Routine 7:20 AM EDT VITAMIN B12 Routine 04/11/2025 7:20 AM EDT TBH VITAMIN D 25 OH Routine 04/11/2025 7 :20 AM EDT METRO IRON AND TIBC Routine 04/11/2025 7 :20 AM EDT ALL THYROID STIM HORMONE Routine 04/11/2025 7:20 AM EDT ALL LIPID PROFILE (FASTING) Routine 04/11/2025 7:20 AM EDT ALL CBC WITH AUTO DIFF Routine 7:20 AM EDT ALL MAGNESIUM Routine 04/11/2025 7:20 AM EDT ALL PHOSPHOROUS Routine 04/11/2025 7:20 AM EDT [facility] CMP (CMP) (FOR REMOTE [facility]ICAL [facility]OSPITAL USE) Routine 04/11/2025 7:20 AM EDT TBH URINE MICROSCOPIC ONLY Routine 04/11/2025 7:09 AM EDT TBH UA (CLEAN/CATCH) MICROSCOPIC IF INDICATE Routine 04/11/2025 7:09 AM EDT TBH MICROALB CREAT RATIO RANDOM Routine 04/11/2025 7:09 AM EDT from Last 3 Months Results * PTH, intact (04/12/2025 1:27 PM EDT) Blood Venous blood specimen / Unknown Park Paresh SAEED LAB BLOOD ORDERABLES Final Resu lt Performing Organization Address [facility] de Phone Number [facility] * Vitamin D 25 hydroxy (04/11/2025 11:18 AM EDT) Blood Venous blood specimen / Unknown Park Paresh SAEED LAB BLOOD ORDERABLES Final Resu lt Performing Organization Address [facility] de Phone Number [facility] * Magnesium (04/11/2025 9:12 AM EDT) Blood Venous blood specimen / Unknown Vijay Ng MD LAB BLOOD ORDERABLES Final Re sult Performing Organization Address [facility] de Phone Number [facility] * Microalbumin / creatinine, urine ratio (04/11/2025 9:10 AM EDT) Urine Urine specimen obtained by clean catch procedure / Unknown Park Yoder NP LAB URINE ORDERABLES Final Resu lt Performing Organization Address [facility] Phone Number [facility] * CBC and differential (04/11/2025 9:10 AM EDT) Blood Venous blood specimen / Unknown Park Yoder NP LAB BLOOD ORDERABLES Final Resu lt Performing Organization Address [facility] de Phone Number [facility] * Lipid panel (04/11/2025 9:10 AM EDT) Blood Venous blood specimen / Unknown Park Aichholz TRIMMING ASSEMBLER LAB BLOOD ORDERABLES Final Resu lt Performing Organization Address [facility] Co de Phone Number [facility] * Comprehensive metabolic panel (04/11/2025 9:10 AM EDT) Blood Venous blood specimen / Unknown us Park Tatianagalindoquiana TRIMMING ASSEMBLER LAB BLOOD ORDERABLES Final Resu lt Performing Organization Address [facility] de Phone Number [facility] * VITAMIN B12 (04/11/2025 7:20 AM EDT) VITAMIN B12 421 232 - 1245 pg/mL TBH Comment: Performed at: [address] [id number] Inverted Block Operator: Jerson Goode PhD, Phone: [phone] 04/11/2025 7:20 AM EDT 04/11/2025 7:35 AM EDT Narrative CLINISYNC - 04/12/2025 4:07 AM EDT us Park Paresh TRIMMING ASSEMBLER LAB BLOOD ORDERABLES Final Resu lt Performing Organization Address [facility] de Phone Number CLINISYNC TBH * TRANSFERRIN (04/11/2025 7:20 AM EDT) TRANSFERRIN 263 177 - 329 mg/dL TBH Comment: Performed at: [address] [id number] Inverted Block Operator: Jerson Goode PhD, Phone: [phone] 04/11/2025 7:20 AM EDT 04/11/2025 7:35 AM EDT Narrative CLINISYNC - 04/12/2025 5:08 AM EDT us Park Paresh TRIMMING ASSEMBLER LAB BLOOD ORDERABLES Final Resu lt Performing Organization Address [facility] Co de Phone Number CLINISYNC TBH * TBH VITAMIN D 25 [place] (04/11/2025 7:20 AM EDT) VITAMIN D 20.3 ng/mL TBH Comment: <20 ng/mL Vit D deficient 20-<30 ng/mL Vit D insufficient 30-100 ng/mL Vit D sufficient >100 ng/mL Potential Toxicity 04/11/2025 7:20 AM EDT 04/11/2025 7:35 AM EDT Narrative CLINISYNC - 04/11/2025 10:28 AM EDT Park Yoder NP CLINISYNC Final Result Performing Organization Address [facility]/ZIP Co de Phone Number CLINISYNC TB * METRO IRON AND TIBC (04/11/2025 7:20 AM EDT) TBH IRON 112.0 65.0 - 175.0 ug/dL TBH TBH TOTAL IRON BINDING CAPACITY 330.0 250.0 - 450.0 ug/dL TBH TBH PERCENT IRON SATURATION 33.9 % TBH 04/11/2025 7:20 AM EDT 04/11/2025 7:35 AM EDT Narrative CLINISYNC - 04/11/2025 9:03 AM EDT Park Yoder NP CLINISYNC Final Result Performing Organization Address [facility] de Phone Number CLINISYNC TB * (ABNORMAL) HMHP PTH, INTRAOPERATIVE (04/11/2025 7:20 AM EDT) PTH, INTACT 66(A) 15 - 65 pg/mL TBH Comment: Performed at: - [address] [id number] Inverted Block Operator: Jerson Goode PhD, Phone: [phone] 04/11/2025 7:20 AM EDT 04/11/2025 7:35 AM EDT Narrative CLINISYNC - 04/12/2025 12:09 PM EDT Generic External Data Provider CLINISYNC F inal Result CLINISYNC TB * (ABNORMAL) [facility] CMP (CMP) (FOR REMOTE CRITICAL ACC[facility]OSPITAL USE) (04/11/2025 7:20 AM EDT) SODIUM 145 136 - 145 mmol/L TBH POTASSIUM 4.4 3.5 - 5.1 mmol/L TBH CHLORIDE 113(H) 98 - 107 mmol/L TBH CARBON DIOXIDE 18.4(L) 21.0 - 32.0 mmol/L TBH ANION GAP 18.0 TBH GLUCOSE 90 74 - 106 mg/dL TBH BLOOD UREA NITROGEN 41.0(H) 7.0 - 18.0 mg/dL TBH CREATININE 1.11 0.70 - 1.30 mg/dL TBH TBH EGFR-AF LATVIAN >60 >=60 mL/min/1. 73m 2 TBH TBH EGFR-NON AF LATVIAN >60 >=60 mL/min/1. 73m 2 TBH BUN CREATININE RATIO 36.9 TBH CALCIUM 8.4(L) 8.5 - 10.1 mg/dL TBH BILIRUBIN TOTAL 0.7 0.2 - 1.0 mg/dL TBH ASPARTATE AMINO TRANSFERASE 29 15 - 37 U/L TBH ALANINE AMINOTRANSFERASE 57 16 - 63 U/L TBH ALKALINE PHOSPHATASE 110 46 - 116 U/L TBH TOTAL PROTEIN 6.5 6.4 - 8.2 g/dL TBH ALBUMIN LEVEL 3.7 3.4 - 5.0 g/dL TBH GLOBULIN 2.8 g/dL TBH ALBUMIN GLOBULIN RATIO 1.3 TBH 04/11/2025 7:20 AM EDT 04/11/2025 7:35 AM EDT Narrative CLINISYNC - 04/11/2025 8:08 AM EDT us Park Yoder NP CLINISYNC Final Result [facility] * ALL THYROID STIM HORMONE (04/11/2025 7:20 AM EDT) THYROID STIMULATING HORMONE 2.419 0.358 - 3.740 uIU/mL TBH 04/11/2025 7:20 AM EDT 04/11/2025 7:35 AM EDT Narrative CLINISYNC - 04/11/2025 8:16 AM EDT us Park Paresh TRIMMING ASSEMBLER CLINISYNC Final Result CLINISYNC TB * ALL PHOSPHOROUS (04/11/2025 7:20 AM EDT) PHOSPHORUS 3.7 2.6 - 4.7 mg/dL TBH 04/11/2025 7:20 AM EDT 04/11/2025 7:35 AM EDT Narrative CLINISYNC - 04/11/2025 8:09 AM EDT Generic External Data Provider CLINISYNC F inal Result Performing Organization Address [facility] Co de Phone Number CLINISYNC TB * ALL MISCELLANEOUS TEST (04/11/2025 7:20 AM EDT) MISCELLANEOUS TEST COMMENT . TBH Comment: Test Ordered: [id number] Ferritin Ferritin 265 ng/mL Reference Range: 30-400 Performed at: - [facility] [id number] Inverted Block Operator: Jerson Goode PhD, Phone: [phone] 04/11/2025 7:20 AM EDT 04/11/2025 7:35 AM EDT Narrative CLINISYNC - 04/12/2025 4:07 AM EDT [id number] Ferritin us Park Yoder TRIMMING ASSEMBLER CLINISYNC Final Result CLINISYNC TB * ALL MAGNESIUM (04/11/2025 7:20 AM EDT) MAGNESIUM 2.2 1.8 - 2.4 mg/dL TBH 04/11/2025 7:20 AM EDT 04/11/2025 7:35 AM EDT Narrative CLINISYNC - 04/11/2025 8:09 AM EDT us Generic External Data Provider CLINISYNC F inal Result Performing Organization Address [facility]/ZIP Co de Phone Number [facility] * ALL LIPID PROFILE (FASTING) (04/11/2025 7:20 AM EDT) TRIGLYCERIDES 35 <=150 mg/dL TBH CHOLESTEROL 71 <=200 mg/dL TBH HDL CHOLESTEROL 47 40 - 60 mg/dL TBH Comment: > or =60 mg/dl - LOW CARDIOVASCULAR RISK <40 mg/dl - HIGH CARDIOVASCULAR RISK LDL CHOLESTEROL CALCULATED 17.0 mg/dL TB Comment: <100 mg/dl OPTIMAL 100-129 mg/dl NEAR OR ABOVE OPTIMAL 130-159 mg/dl BORDERLINE HIGH 160-189 mg/dl HIGH >190 mg/dl VERY HIGH VLDL CHOLESTEROL 7.0 mg/dL TB CHOL HDL RATIO 1.5 TB Comment: 3.3 - 4.4 LOW RISK 4.4 - 7.1 AVERAGE RISK 7.1 - 11.0 MODERATE RISK >11.0 HIGH RISK 04/11/2025 7:20 AM EDT 04/11/2025 7:35 AM EDT [facility] CLINISYNC - 04/11/2025 8:16 AM EDT us Park Yoder NP CLINISYNC Final Result Performing Organization Address [facility] de Phone Number [facility] * (ABNORMAL) ALL CBC WITH AUTO DIFF (04/11/2025 7:20 AM EDT) TBH WBC 6.4 4.0 - 11.0 10 3/uL TBH TBH RBC 3.93(L) 4.70 - 6.10 10 6/uL TBH TBH HGB 11.8(L) 14.0 - 18.0 g/dL TBH TBH HCT 39.3(L) 42.0 - 54.0 % TBH TBH MCV 100.0(H) 80.0 - 94.0 fL TBH TBH MCH 30.0 25.9 - 34.0 pg TBH TBH MCHC 30.0 29.9 - 35.2 g/dL TBH TBH RDW 14.0 11.0 - 15.0 % TBH TBH PLT 140(L) 150 - 450 10 3/uL TBH TBH MPV 10.6 9.5 - 13.5 fL TBH NEUTROPHILS PERCENT AUTO 63.6 43.0 - 75.0 % TBH LYMPHOCYTES PERCENT AUTO 25.0 20.5 - 60.0 % TBH MONOCYTES PERCENT AUTO 6.9 1.7 - 12.0 % TBH TBH EO % 3.4 0.9 - 7.0 % TBH BASOPHILS PERCENT AUTO 0.8 0.2 - 2.0 % TBH IMMATURE GRANULOCYTES PCT AUTO 0.3 0.0 - 0.5 % TBH NEUTROPHILS ABSOLUTE AUTO 4.1 1.4 - 6.5 10 3/uL TBH LYMPHOCYTES ABSOLUTE AUTO 1.6 1.2 - 3.8 10 3/uL TBH MONOCYTES ABSOLUTE AUTO 0.4 0.3 - 0.8 10 3/uL TBH TBH EO # 0.2 0.0 - 0.7 10 3/uL TBH BASOPHILS ABSOLUTE AUTO 0.1 0.0 - 0.1 10 3/uL TBH IMMATURE GRANULOCYTES ABS AUTO 0.02 0.00 - 0.03 10 3/uL TBH 04/11/2025 7:20 AM EDT 04/11/2025 7:35 AM EDT Narrative CLINISYNC - 04/11/2025 8:12 AM EDT us Park Yoder NP CLINISYNC Final Result CLINISYNC TB * (ABNORMAL) TBH URINE MICROSCOPIC ONLY (04/11/2025 7:09 AM EDT) TBH WBC 10-20(A) NONE SEEN #/HPF TBH TBH RBC 10-20(A) 0 - 2 #/HPF TBH BACTERIA URINE MODERATE(A ) NONE SEEN #/HPF TBH MUCUS URINE NONE SEEN NONE SEEN TBH SQUAMOUS EPITHELIAL CELL URINE FEW(A) NONE/RARE #/LPF TBH CRYSTALS SEEN? Seen(A) None Seen #/HPF TBH AMORPHOUS SEDIMENT URINE FEW TBH CAST SEEN? NONE SEEN NONE SEEN #/LPF TBH 04/11/2025 7:09 AM EDT 04/11/2025 7:35 AM EDT Narrative CLINISYNC - 04/11/2025 9:19 AM EDT us Park Yoder TRIMMING ASSEMBLER CLINISYNC Final Result Performing Organization Address [facility] Co de Phone Number CLINISYTN TB * (ABNORMAL) TBH UA (CLEAN/CATCH) MICROSCOPIC IF INDICATE (04/11/2025 7:09 AM EDT) COLOR URINE LT. YELLOW YELLOW TBH CLARITY URINE SL CLOUDY CLEAR TBH SPECIFIC GRAVITY URINE 1.010 1.005 - 1.025 TBH PH URINE 6.5 5.0 - 9.0 TBH PROTEIN URINE TRACE NEG/TRACE mg/dL TBH GLUCOSE URINE UA NEGATIVE NEGATIVE mg/dL TBH BILIRUBIN URINE NEGATIVE NEGATIVE TBH KETONES URINE NEGATIVE NEGATIVE mg/dL TBH BLOOD URINE LARGE(A) NEGATIVE TBH NITRITE URINE POSITIVE(A) NEGATIVE TBH UROBILINOGEN URINE 0.2 0.2 - 1.0 EU/dL TBH LEUKOCYTE ESTERASE URINE MODERATE(A) NEGATIVE TBH URINE MICROSCOPIC INDICATED YES TBH 04/11/2025 7:09 AM EDT 04/11/2025 7:35 AM EDT Narrative CLINISYTN - 04/11/2025 9:19 AM EDT us Park Yoder NP CLINISYNC Final Result Performing Organization Address [facility] de Phone Number CLINISYTN TB * (ABNORMAL) TBH MICROALB CREAT RATIO RANDOM (04/11/2025 7:09 AM EDT) MICROALBUMIN URINE RANDOM 5.6 <=30.0 mg/dL TB CREATININE URINE RANDOM 50.27 20.00 - 300.00 mg/dL TB MICROALBUM CREATININE RATIO UR 111.3(H) 0.0 - 29.9 mg/g TBH Comment: NO MICROALBUMINURIA 0-29 MG/G CLINICAL MICROALBUMINURIA 30-300 MG/G MACROALBUMINURIA >300 MG/G 04/11/2025 7:09 AM EDT 04/11/2025 7:35 AM EDT Narrative CLINISYNC - 04/11/2025 8:12 AM EDT us Park Yoder TRIMMING ASSEMBLER CLINISYNC Final Result CLINISYNC [facility] from Last 3 Months Insurance [facility] Care Teams Retail Coverage Merchandiser Lead Relationship Specialty Start Date End Date Kenny Hartley MD [address] [place] [place] [phone] PCP - General Family Medicine 10/26/23
--- OUTSIDE RECORDS SUMMARY | 2025-05-11 16:12 | XMS_ITS | Encounter Summary ---
Author Organization [employer] Address [id number] [place] [address] Care Team Providers Care Retail Furniture Sales Name Role Phone Park Yoder Vin FORENSICS TEAM DIRECTOR-STUDENT DEVELOPMENT DEAN Primary Care Provider Encounter Details Date Type Department Care Team ([facility] Contact Info) Description 06/07/2024 Orders Only [facility] [address] [place] [address] Ifrah Tapia, SPECIMEN TRANSPORTER Mixed hyperlipidemia Social History Tobacco Use Types Packs/Day Years [...] Upcoming Encounters Date Type Department Care Team ([facility] Contact Info) Description 06/15/2025 2:15 PM EDT Office Visit [facility] [address] [place] [id number] Angela Barney PA-C [address] [place] [address] Jorge Storm MD [address] [place], [place] [id number] documented as of this encounter Procedures Procedure Name Priority Date/Time Associated Diagnosis Comments LIPID PROFILE Routine 06/07/2024 Mixed hyperlipidemia documented in this encounter Results * Lipid panel (06/07/2024) External Cholesterol 68 [facility] External Cholesterol:Hdl 1.4 [facility] External Hdl Cholesterol 47 [facility] External Ldl (Calc) 13.8 [facility] External Triglycerides 36 [facility] Vldl,Cholesterol 7.2 [facility] 06/07/2024 us Christofer Beltran APRN-STUDENT DEVELOPMENT DEAN LAB BLOOD ORDERABLES F inal Result [facility] documented in this encounter Visit Diagnoses Diagnosis Mixed hyperlipidemia documented in this encounter Care Teams Retail Furniture Sales Relationship Specialty Start Date End Date Park Yoder APRN-STUDENT DEVELOPMENT DEAN PCP - General Nurse Practitioner 03/15/20 documented as of this encounter
--- OUTSIDE RECORDS SUMMARY | 2025-05-11 16:12 | XMS_ITS | Encounter Summary ---
Author Organization [facility] Address [address], [address] [place] [address] Care Team Providers Care Water Sponger Name Role Phone Park Yoder APRN - CLOTH MERCERIZER OPERATOR Primary Care Provide r Encounter Details Date Type Department Care Team (Late st Contact Info) Description 02/25/2014 PAT Telephone [facility] Pre-Admit Testing [address] [place] [id number] Jeanie Tanner RN Social History Tobacco Use Types Packs/Day Years Used Date Smoking Tobacco: Never Smokeless Tobacco: Never Alcohol Use Standard Drinks/Week Comments Yes 7 (1 standard drink = 0.6 oz pur e alcohol) OCC Sex and Gender Information Value Date Recorded Sex Assigned at Not on file Legal Sex Male 8:39 PM EST Gender Identity Not on file Sexual Orientation Not on file documented as of this encounter Plan of Treatment Not on file documented as of this encounter Visit Diagnoses Not on filedocumented in this encounter Care Teams Water Sponger Relationship Specialty Start Date End Date Park Yoder APRN - CLOTH MERCERIZER OPERATOR [address] [place] [address] PCP - General Nurse Practitioner 04/14/19 documented as of this encounter
--- OUTSIDE RECORDS SUMMARY | 2025-05-11 16:12 | XMS_ITS | Encounter Summary ---
Author Organization [employer] Sys tem Address [facility]-[id number] [address] [place] [address] Care Team Providers Care Skimmer Scoop Operator Name Role Phone TatianagalindoPark araya APRN-[facility] Primary Care Provider Reason for Referral * Cardiology (Routine) - Pending Review Specialty Diagnoses / Procedures Referred By Contac t Referred To Contact Diagnoses Nonischemic cardiomyopathy (CMS-HCC) Chronic systolic heart failure (CMS-HCC) Procedures Echo complete W/O contrast Jorge Storm MD [address] [place] [address] Phone: tel: fax: Referral ID Status Reason Start Date Expiration Date V isits Requested Visits Authorized [id number] Pending Review 04/28/2025 04/28/2026 1 1 Encounter Details Date Type Department Care Team (Late st Contact Info) Description 04/28/2025 Orders Only [facility] [address] [place] [address] Violeta Peacock RN Nonischemic cardiomyopathy (CMS-HCC) (Primary Dx); Chronic systolic heart failure (CMS-HCC) Social History Tobacco Use Types Packs/Day Years [...] on file documented as of this encounter Progress Notes * Violeta Peacock RN - 04/28/2025 9:00 AM EDT Pt echo order . New order created and faxed to [facility] so pt could have done documented in this encounter Plan of Treatment Upcoming Encounters Date Type Department Care Team (Late st Contact Info) Description 06/15/2025 2:15 PM EDT Office Visit [facility] [address] [place] [address] Angela Barney PA-C [address] [place] [address] Jorge Storm MD [address] [place] [address] Scheduled Orders Name Type Priority Associated Diagnoses Orde r Schedule Echo complete W/O contrast Echocardiography Routine Nonischemic cardiomyopathy (CMS-HCC) Chronic systolic heart failure (CMS-HCC) Expected: 04/28/2025, Expires: 04/28/2026 documented as of this encounter Visit Diagnoses Diagnosis Nonischemic cardiomyopathy (CMS-HCC)- Primary Other primary cardiomyopathies Chronic systolic heart failure (CMS-HCC) Chronic systolic heart failure documented in this encounter Care Teams Skimmer Scoop Operator Relationship Specialty Start Date End Date Park Yoder, MOLDING FITTER-COMPUTER AIDED DESIGN OPERATOR PCP - General Nurse Practitioner 03/15/20 documented as of this encounter
--- OUTSIDE RECORDS SUMMARY | 2025-05-11 16:12 | XMS_ITS | Encounter Summary ---
Author Organization [facility] Address [address] [place] [address] Care Team Providers Care Head Of Marketing Adometry Name Role Phone Kenny Hartley MD Primary Care Provider [phone] Park Yoder CLAY PIGEON LOADER Unavailable [phone] Encounter Details Date Type Department Care Team (Late Contact Info) Description 11/03/2023 Abstract [facility] [address] [place] [address] Park Yoder, CLAY PIGEON LOADER [address] [place] [address] Social History Tobacco Use Types Packs/Day Years Used Date Smoking Tobacco: Never Sex and Gender Information Value Date Recorded Sex Assigned at Not on file Legal Sex Male 8:22 AM EDT Gender Identity Not on file Sexual Orientation Not on file documented as of this encounter Functional Status * Over the past 2 weeks, how often have you been bothered by any of the following problems? Question Answer Date of Assessment Author Little interest or pleasure in doing things Not at all 11/04/2023 4:00 PM HUSSAIN WAN Feeling down, depressed, or hopeless Not at all 11/04/2023 4:00 PM HUSSAIN WAN Patient Health Questionnaire -2 Score 0 11/04/2023 4:00 PM HUSSAIN WAN documented as of this encounter Plan of Treatment Upcoming Encounters Date Type Department Care Team (Late Contact Info) Description 05/23/2025 2:00 PM EDT Office Visit [facility] [address] [place] [address] Vijay Ng MD [address] [place] [address] 06/08/2025 3:00 PM EDT Office Visit [facility] [address] [place] [phone] Park Yoder, CHRISTOPHE [address] [place] [address] documented as of this encounter Visit Diagnoses Not on filedocumented in this encounter Care Teams Head Of Marketing Adometry Relationship Specialty Start Date End Date Kenny Hartley MD [address] [place] [address] PCP - General Family Medicine 10/26/23 Park Yoder, CHRISTOPHE [address] [place] [address] PCP - [place] Commercial 03/28/24 documented as of this encounter
--- OUTSIDE RECORDS SUMMARY | 2025-05-11 16:12 | XMS_ITS | Encounter Summary ---
Author Organization [facility] [employer] Sys tem Address [facility]-[id number] [address] [place] [address] Care Team Providers Care Wire Frame Maker Name Role Phone TatianaPark allen Vin RESAW CARRIAGE OPERATOR-PRODUCTION EXPEDITER Primary Care Provider Reason for Visit * Reason Comments Med Refill Encounter Details Date Type Department Care Team ([facility] st Contact Info) Description 05/10/2025 Refill [facility] [address] [address] Shanel Bonilla APRN-PRODUCTION EXPEDITER [address] [place] [address] Med Refill Social History Tobacco Use Types [...] encounter Miscellaneous Notes * Telephone Encounter - Kristine Caceres RN - 05/10/2025 5:41 AM EDT Ov-04/27/24 Next ov-06/15/25 documented in this encounter Plan of Treatment Upcoming Encounters Date Type Department Care Team (Late st Contact Info) Description 06/15/2025 2:15 PM EDT Office Visit [facility] [address] [place] [address] Angela Barney PA-C [address] [place], [place] [phone] Jorge Storm MD [address] [place], [place] [phone] documented as of this encounter Visit Diagnoses Not on filedocumented in this encounter Care Teams Wire Frame Maker Relationship Specialty Start Date End Date Park Yoder, RESAW CARRIAGE OPERATOR-PRODUCTION EXPEDITER PCP - General Nurse Practitioner 03/15/20 documented as of this encounter
--- OUTSIDE RECORDS SUMMARY | 2025-05-11 16:12 | XMS_ITS | Clinical Summary ---
Author Organization [facility] Address [address], [address] [place] [address] Care Team Providers Care Skin Diver Name Role Phone Park Yoder APRN, NP Primary Care Provide r Allergies No known active allergies Medications No known medications Active Problems Problem Noted Date Diagnosed Date Left ureteral calculus 01/16/2014 Renal calculi 01/15/2014 Acute renal failure 01/15/2014 Hypokalemia 01/15/2014 Family History Medical History Relation Name Comments High Cholesterol Father High Cholesterol Mother Relation Name Status Comments Father Mother [...] Sign Reading Time Taken Comments Blood Pressure 114/65 05/05/2014 4:00 PM EDT Pulse 68 05/05/2014 4:00 PM EDT Temperature 36.4 C (97.5 F) 05/05/2014 4:00 PM EDT Respiratory Rate 18 05/05/2014 4:00 PM EDT Oxygen Saturation 95% 05/05/2014 3:25 PM EDT Inhaled Oxygen Concentration - - Weight 117.9 kg (260 lb) 05/05/2014 12:48 PM EDT Height 180.3 cm (5' 11 ) 05/05/2014 12:48 PM EDT Body Mass Index 36.26 05/05/2014 12:48 PM EDT Plan of Treatment Not on file Care Teams Skin Diver Relationship Specialty Start Date End Date Park Yoder, ZOO CARETAKER - CHIEF DEPUTY [address] [place] [phone] PCP - General Nurse Practitioner 04/14/19
--- OUTSIDE RECORDS SUMMARY | 2025-05-11 16:12 | XMS_ITS | Encounter Summary ---
Author Organization [employer] Address [facility] [place]-[id number] [address] [place] [address] Care Team Providers Care Patient Care Coordinator Name Role Phone Park Yoder GENERAL DISTILLERY WORKER-PATIENT CARE COORDINATOR Primary Care Provider Reason for Visit * Reason Onset Date Comments Med Refill 03/03/2018 Encounter Details Date Type Department Care Team (Late Contact Info) Description 03/03/2018 Refill [facility] [address] [place] [address] Karime Jimenez, ISABEL Med Refill Social History Tobacco Use Types Packs/Day Years Used Date Smoking Tobacco: Former Cigars Smokeless Tobacco: Never Comments:smokes a cigar occa sionally Alcohol Use Standard Drinks/Week Comments Yes 7 (1 standard drink = 0.6 oz pur e alcohol) 1 drink per day Sex and Gender Information Value Date Recorded Sex Assigned at Not on file Legal Sex Male 11:28 AM EDT Gender Identity Not on file Sexual Orientation Not on file documented as of this encounter Plan of Treatment Upcoming Encounters Date Type Department Care Team (Late Contact Info) Description 06/15/2025 2:15 PM EDT Office Visit [facility] [address] [place] [address] Angela Barney PA-C [address] [place] [address] Jorge Storm MD [address] [place] [address] documented as of this encounter Visit Diagnoses Not on filedocumented in this encounter Care Teams Patient Care Coordinator Relationship Specialty Start Date End Date Park Yoder APRN-PATIENT CARE COORDINATOR PCP - General Nurse Practitioner 03/15/20 documented as of this encounter
--- OUTSIDE RECORDS SUMMARY | 2025-05-11 16:12 | XMS_ITS | Encounter Summary ---
Author Organization [facility] Address [address] [place] [address] Care Team Providers Care Geological Survey Field Assistant Name Role Phone Kenny Hartley MD Primary Care Provider [phone] Reason for Visit * Reason Comments Med Refill Encounter Details Date Type Department Care Team (Late Contact Info) Description 05/01/2025 Refill [facility] [address] [place] [address] Vijay Ng MD [address] [place] [address] Other specified abnormal findings of blood chemistry Social History Tobacco Use Types Packs/Day Years Used Date Smoking Tobacco: Some Days Cigars Smokeless Tobacco: Never Alcohol Use Standard Drinks/Week [...] encounter Miscellaneous Notes * Telephone Encounter - Мария Graff LPN - 05/01/2025 9:58 AM EDT MEDICATION SENT TO PHARMACY. documented in this encounter Plan of Treatment Upcoming Encounters Date Type Department Care Team (Late Contact Info) Description 05/23/2025 2:00 PM EDT Office Visit [facility] [address] [place] [address] Vijay Ng MD [address] [place] [address] 06/08/2025 3:00 PM EDT Office Visit [facility] [address] [place] [address] Park Yoder NP [address] [place] [address] documented as of this encounter Visit Diagnoses Diagnosis Other specified abnormal findings of blood chemistry documented in this encounter Care Teams Geological Survey Field Assistant Relationship Specialty Start Date End Date Kenny Hartley MD [address] [place] [address] PCP - General Family Medicine 10/26/23 documented as of this encounter
--- OUTSIDE RECORDS SUMMARY | 2025-05-11 16:12 | XMS_ITS | Encounter Summary ---
Author Organization [employer] s tem Address [facility] [place][id number] [address] [place] [address] Care Team Providers Care Fur Operator Name Role Phone Park Yoder GAS METER INSTALLER HELPER-ADMITTING SUPERVISOR Primary Care Provider Encounter Details Date Type Department Care Team (Late st Contact Info) Description 12/04/2020 Orders Only [facility] [address] [place] [address] Ifrah Genao MA Chronic systolic congestive heart failure (CMS-HCC); Nonsustained ventricular tachycardia (CMS-HCC); Hyperlipidemia, unspecified hyperlipidemia type Social History Tobacco Use Types Packs/Day Years [...] Cardiology [address] [place] [address] Angela Barney PA-C [address] [place] [address] Jorge Storm MD [address] [place] [address] documented as of this encounter Procedures Procedure Name Priority Date/Time Associated Diagnosis Comments LIPID PROFILE Routine 11/30/2020 Chronic systolic congestive heart failure (CMS-HCC) Nonsustained ventricular tachycardia (CMS-HCC) Hyperlipidemia, unspecified hyperlipidemia type COMPREHENSIVE METABOLIC PANEL Routine 11/30/2020 Chronic systolic congestive heart failure (CMS-HCC) Nonsustained ventricular tachycardia (CMS-HCC) Hyperlipidemia, unspecified hyperlipidemia type documented in this encounter Results * Comprehensive metabolic panel (11/30/2020) 11/30/2020 us Gia Meeks MD LAB BLOOD ORDERABLES Final Re sult Performing Organization Address [facility]/ZIP Co de Phone Number [facility] * Lipid profile (11/30/2020) External Cholesterol 60 [facility] External Cholesterol:Hdl 1.7 [facility] External Hdl Cholesterol 36 [facility] External Ldl (Calc) 19 [facility] External Triglycerides 21 [facility] External Very Low Lipoprotein 4 [facility] 11/30/2020 Gia Meeks MD LAB BLOOD ORDERABLES Final Re sult [facility] documented in this encounter Visit Diagnoses Diagnosis Chronic systolic congestive heart failure (CMS-HCC) Nonsustained ventricular tachycardia (CMS-HCC) Hyperlipidemia, unspecified hyperlipidemia type documented in this encounter Care Teams Fur Operator Relationship Specialty Start Date End Date Park Yoder APRN-ADMITTING SUPERVISOR PCP - General Nurse Practitioner 03/15/20 documented as of this encounter
--- OUTSIDE RECORDS SUMMARY | 2025-05-11 16:12 | XMS_ITS | Encounter Summary ---
Author Organization [email or web address] Sys [employer] Address [facility] [place]-[id number] [address] [place] [address] Care Team Providers Care Sky Cap Name Role Phone Park Yoder ACETYLENE GAS COMPRESSOR-CONFECTIONERY LABORATORY MANAGER Primary Care Provider Encounter Details Date Type Department Care Team (Late Contact Info) Description 04/21/2024 Orders Only [facility] [address] [place] [address] External, Scanning Provider Social History Tobacco Use Types Packs/Day Years [...] Upcoming Encounters Date Type Department Care Team ([facility] Contact Info) Description 06/15/2025 2:15 PM EDT Office Visit [facility] [address] [place] [address] Angela Barney PA-C [address] [place] [address] Jorge Storm MD [address] [place], [place] [phone] documented as of this encounter Procedures Procedure Name Priority Date/Time Associated Diagnosis Comments MULTIPLE LABS Routine 04/21/2024 4:16 PM EDT documented in this encounter Results * Multiple labs (04/21/2024 4:16 PM EDT) us Scanning Provider External [facility] Final Result MANUALLY TRANSCRIBED RESULTS documented in this encounter Visit Diagnoses Not on filedocumented in this encounter Care Teams Sky Cap Relationship Specialty Start Date End Date Park Yoder APRN-CONFECTIONERY LABORATORY MANAGER PCP - General Nurse Practitioner 03/15/20 documented as of this encounter
--- OUTSIDE RECORDS SUMMARY | 2025-05-11 16:12 | XMS_ITS | Encounter Summary ---
Author Organization [facility] Address [facility][id number] [address] [place] [address] Care Team Providers Care Juvenile Counselor Name Role Phone Park Yoder COSTUME DESIGN TEACHER-PLANT PHYSIOLOGIST Primary Care Provider Reason for Visit * Reason Onset Date Comments Med Refill 05/18/2024 Encounter Details Date Type Department Care Team (Late Contact Info) Description 05/18/2024 Refill [facility] [address] [facility] [address] [place] [address] Karime Jimenez, ISABEL Med Refill Social History [...] Upcoming Encounters Date Type Department Care Team ([facility] Contact Info) Description 06/15/2025 2:15 PM EDT Office Visit [facility] [address] [place] [phone] Angela Barney PA-C [address] [place] [address] Jorge Storm MD [address] [place], [place] [phone] documented as of this encounter Visit Diagnoses Not on filedocumented in this encounter Care Teams Juvenile Counselor Relationship Specialty Start Date End Date Park Yoder, COSTUME DESIGN TEACHER-PLANT PHYSIOLOGIST PCP - General Nurse Practitioner 03/15/20 documented as of this encounter
--- OUTSIDE RECORDS SUMMARY | 2025-05-11 16:12 | XMS_ITS | Encounter Summary ---
Author Organization [facility] [employer] Sys tem Address [facility]-[id number] [address] [place] [address] Care Team Providers Care Felt Hat Steamer Name Role Phone TatianaPark allen Vin PATHOLOGIST ASSISTANT-RETAIL AREA MANAGER Primary Care Provider Reason for Visit * Reason Comments Med Refill Encounter Details Date Type Department Care Team ([facility] st Contact Info) Description 05/02/2025 Refill [facility] [address] [address] Sandi Middleton, PATHOLOGIST ASSISTANT-RETAIL AREA MANAGER [address] [place] [address] Med Refill Social History Tobacco Use Types [...] Cardiology [address] [place] [address] Angela Barney PA-C [address] [place] [address] Jorge Storm MD [address] [place], [place] [address] documented as of this encounter Visit Diagnoses Not on filedocumented in this encounter Care Teams Felt Hat Steamer Relationship Specialty Start Date End Date Park Yoder APRN-RETAIL AREA MANAGER PCP - General Nurse Practitioner 03/15/20 documented as of this encounter
--- OUTSIDE RECORDS SUMMARY | 2025-05-11 16:12 | XMS_ITS | Encounter Summary ---
Author Organization [facility] Address [address] [place] [address] Care Team Providers Care Physical Sciences Instructor Name Role Phone Kenny Hartley MD Primary Care Provider [phone] Park Yoder COMMERCIAL MANAGEMENT ACCOUNTANT Unavailable [phone] Encounter Details Date Type Department Care Team (Late Contact Info) Description 02/19/2024 Clinisync Result Encounter [facility] External Department Unsolicited Park Yoder, COMMERCIAL MANAGEMENT ACCOUNTANT [address] [place] [address] Social History Tobacco Use Types Packs/Day Years [...] [place] [facility] [address] [place] [address] Vijay Ng MD [address] [place] [address] 06/08/2025 3:00 PM EDT [facility] [address] [place] [address] Park Yoder NP [address] [place] [address] documented as of this encounter Procedures Procedure Name Priority Date/Time Associated Diagnosis Comments XR LUMBAR SPINE 2 OR 3V 02/19/2024 10:49 AM EDT documented in this encounter Results * XR LUMBAR SPINE 2 OR 3V (02/19/2024 10:49 AM EDT) Anatomical Region Laterality Modality Radiographic Aura ging 02/19/2024 10:4 9 AM EDT Narrative 02/19/2024 10:51 AM EDT [address] [address] XRay Report Signed Patient: SHABNAM BURGESS MR#: [id number] : 1955 Acct:[id number] Age/Sex: 68 / M ADM Date: 02/18/24 Loc: LAB Attending Dr: Park Yoder COMMERCIAL MANAGEMENT ACCOUNTANT Ordering Physician: Park Yoder NP Date of Service: 02/18/24 Procedure(s): XR lumbar spine 2-3V Accession Number(s): [id number] cc: Park Yoder NP [address] [address] Patient Name: SHABNAM BURGESS MRN: [id number] date: 1955 Sex: M Assigned Patient Location: LAB Current Patient Location: LAB Accession/Order Number: [id number] Exam Date: 02/18/2024 15:25 Report Date: 02/19/2024 10:49 At the request of: PARK YODER Procedure: XR lumbar spine 2-3V EXAMINATION: XR lumbar spine 2-3V HISTORY: Degenerative disc disease, lumbar M51.36 COMPARISON: No relevant comparison available. FINDINGS: BONES: Mild left convex curvature of lumbar spine. No fracture or spondylolisthesis. Moderate degenerative facet arthropathy L3-4 through L5-S1. DISC SPACES: Mild narrowing L2-3. PARASPINOUS: Negative. No paraspinous abnormality is seen. OTHER: Negative. XR/XR lumbar spine 2-3V IMPRESSION: 1. Mild-moderate degenerative changes of lumbar spine. 2. No appreciable acute abnormality. Electronically authenticated by: SILVANO CADENA Date: 02/19/2024 10:49 Dictated By: Silvano Cadena M.D. Signed By: 02/19/24 1051 DD/ 1049 TD/TT: Sanipractic Physician: Procedure Note Radiology, Radiologist, MD - 02/19/2024 [place] [address] XRay Report Signed Patient: SHABNAM BURGESS FMR#: [id number] : 1955cct:[id number] Age/Sex: 68 / MADM Date: 02/18/24 Loc: LAB Attending Dr: Park Yoder COMMERCIAL MANAGEMENT ACCOUNTANT Ordering Physician: Park Yoder NP Date of Service: 02/18/24 Procedure(s): XR lumbar spine 2-3V Accession Number(s): [id number] cc: Park Yoder NP [facility] [place] [id number] Patient Name: SHABNAM BURGESS MRN: [id number] date: 1955 Sex: M Assigned Patient Location: LAB Current Patient Location: LAB Accession/Order Number: [id number] Exam Date: 02/18/2024 15:25 Report Date: 02/19/2024 10:49 At the request of: PARK YODER Procedure: XR lumbar spine 2-3V EXAMINATION: XR lumbar spine 2-3V HISTORY: Degenerative disc disease, lumbar M51.36 COMPARISON: No relevant comparison available. FINDINGS: BONES: Mild left convex curvature of lumbar spine. No fracture or spondylolisthesis. Moderate degenerative facet arthropathy L3-4 throughL5-S1. DISC SPACES: Mild narrowing L2-3. PARASPINOUS: Negative. No paraspinous abnormality is seen. OTHER: Negative. XR/XR lumbar spine 2-3V IMPRESSION: 1. Mild-moderate degenerative changes of lumbar spine. 2. No appreciable acute abnormality. Electronically authenticated by: SILVANO CADENA Date: 02/19/2024 10:49 Dictated By: Silvano Cadena M.D. Signed By:02/19/24 1051 DD/ 1049 TD/TT: Sanipractic Physician: us Park Yoder COMMERCIAL MANAGEMENT ACCOUNTANT IMG XR PROCEDURES Final Result documented in this encounter Visit Diagnoses Not on filedocumented in this encounter Care Teams Physical Sciences Instructor Relationship Specialty Start Date End Date Kenny Hartley MD [address] [place] [address] PCP - General Family Medicine 10/26/23 Park Yoder NP [address] [place] [address] PCP - [place] Commercial 03/28/24 documented as of this encounter
--- OUTSIDE RECORDS SUMMARY | 2025-05-11 16:12 | XMS_ITS | Clinical Summary ---
Author Organization [place] [facility] Address [id number] [place] [address] Care Team Providers Care Personal Financial Counselor Name Role Phone [facility] [employer] Primary Care Provider Allergies Active Allergy Reactions Criticality Noted Date Comments No Known Drug Allergies 05/11/2017 Other reaction(s): Unknown Medications multivitamin (THERAGRAN) tablet Take 1 tablet by mouth in the morning. Active IRON, FERROUS SULFATE, ORAL Take 30 mg by mouth. 2 tablets daily-chew Active aspirin 81 mg Take 1 tablet (81 mg total) by mouth daily. 90 tablet 3 0 Active calcium carb/vitamin D3/vit K1 (CALCIUM SOFT CHEW ORAL) Take 250 mg by mouth daily. Active atorvastatin (LIPITOR) 20 mg tablet Take 1 tablet (20 mg total) by mouth in the morning. 90 tablet 3 4 Active lisinopriL (PRINIVIL,ZEST RIL) 5 mg tablet TAKE 1 TABLET BY MOUTH IN THE MORNING 90 tablet 5 Active metoprolol succinate XL (TOPROL XL) 25 mg 24 hr tablet TAKE 1 TABLET BY MOUTH TWICE DAILY (MORNING AND BEFORE BEDTIME) 180 tablet 5 Active lisinopriL (PRINIVIL,ZEST RIL) 5 mg tablet take 1 tablet by mouth in the morning 90 tablet 3 4 05/03/20 25 Discontinued metoprolol succinate XL (TOPROL XL) 25 mg 24 hr tablet Take 1 tablet (25 mg total) by mouth in the morning and 1 tablet (25 mg total) before bedtime. 180 tablet 3 4 05/10/20 25 Discontinued Active Problems Problem Noted Date Diagnosed Date Status post ablation of ventricular arrhythmia 0 04/27/2024 Shortness of breath 05/19/2022 Typical atrial flutter 12/01/2017 Right bundle branch block 12/01/2017 Paroxysmal ventricular tachycardia 09/18/2017 Overview (09/18/2017): Added automatically from request for surgery [id number] Chronic systolic heart failure 09/18/2017 Overview (09/18/2017): Added automatically from request for surgery [id number] Nonischemic cardiomyopathy 09/18/2017 Overview (09/18/2017): Added automatically from request for surgery [id number] Ventricular contraction, premature 09/18/2017 Overview (09/18/2017): Added automatically from request for surgery [id number] Nonsustained ventricular tachycardia 05/12/2017 Chronic systolic congestive heart failure 2016 Ventricular premature depolarization 03/25/2017 Abnormal electrocardiogram 03/25/2017 Preop cardiovascular exam 03/25/2017 Calculus of ureter 01/16/2014 Acute renal failure 01/15/2014 Hypokalemia 01/15/2014 Calculus of kidney 01/15/2014 Encounters Date Type Department Care Team Description 05/10/2025 Refill [facility] [address] [place] [id number] Shanel Bonilla LEGAL [employer] HOST Med Refill 05/02/2025 Refill [facility] [address] [place] [id number] Sandi Middleton, LEGAL INTER[employer] HOST Med Refill 04/28/2025 Orders Only [facility] [address] [place] [address] Violeta Peacock RN Nonischemic cardiomyopathy (CMS-HCC) (Primary Dx); Chronic systolic heart failure (CMS-HCC) from Last 3 Months Family History Medical History Relation Name Comments Heart disease Father No Known Problems Mother Relation Name Status Comments Father Mother Social History Tobacco Use Types Packs/Day Years Used Date Smoking Tobacco: Former Cigars Smokeless Tobacco: Never Tobacco Cessation:Counseling Given: Not Answered Comments:smokes a cigar occasionally Alcohol Use Standard Drinks/Week Comments Yes 7 [...] Sign Reading Time Taken Comments Blood Pressure 98/60 04/27/2024 7:57 AM EDT Pulse 64 04/27/2024 7:57 AM EDT Temperature 36.5 C (97.7 F) 11/14/2017 7:00 AM EST Respiratory Rate 14 04/27/2024 7:57 AM EDT Oxygen Saturation 94% 04/27/2024 7:57 AM EDT Inhaled Oxygen Concentration - - Weight 105.2 kg (232 lb) 04/27/2024 7:57 AM EDT Height 180.3 cm (5' 11 ) 10/15/2022 3:14 PM EST Body Mass Index 32.36 10/15/2022 3:14 PM EST Plan of Treatment Upcoming Encounters Date Type Department Care Team (Late st Contact Info) Description 06/15/2025 2:15 PM EDT Office Visit [facility] [address] [place] [address] Angela Barney PA-C [address] [place] [address] Jorge Storm MD [address] [place], [place] [id number] Health Maintenance Due Date Last Done Comments Depression Screening 1967 Zoster (Shingles) Vaccine (1 of 2) 11/28/2007 Abdominal Aortic Aneurysm (A AA) Screen 2022 Fall Risk Screening 2022 COVID-19 Vaccine (3 - 2023-2 5 season) 2024 02/13/2021, 01/23/2021 Adult BMI Screening 04/27/2025 04/27/2024 Tobacco Screening 04/27/2025 04/27/2024 Influenza Vaccine 05/29/2025 08/03/2024, , 07/02/2020 DTaP,Tdap and Td Vaccines (2 - Tdap) 06/16/203005/29 Medical Devices Not on file Care Teams Personal Financial Counselor Relationship Specialty Start Date End Date Park Yoder, LEGAL INTER[employer]PART[employer] HOST PCP - General Nurse Practitioner 03/15/20
--- OUTSIDE RECORDS SUMMARY | 2025-05-11 16:22 | XMS_ITS | CCD ---
Author Organization [facility] CliniSywy Care Team Providers Care Chestnut Tanner Name Role Phone PHYSICIAN, DEFAULT Unavailable Unavailable PHYSICIAN, DEFAULT Unavailable Unavailable AICHHOLZ, PARK J. Referring Unavailable AICHHOLZ, PARK J. Primary Care Unavailable AICHHOLZ, PARK J Primary Care Physician ANAHI ., DR NGUYỄN Consulting Unavailable CHRISTIAN ., DR NGUYỄN Admitting Unavailable CHRISTIAN ., DR NGUYỄN Attending Unavailable AICHHOLZ, GUEST RELATIONS OFFICER PARK Primary Care Unavailable MISC, DR AYERS Consulting Unavailable MISC, DR AYERS Admitting Unavailable MISC, DR AYERS Attending Unavailable AICHHOLZ, GUEST RELATIONS OFFICER PARK Primary Care Unavailable AICHHOLZ, GUEST RELATIONS OFFICER PARK Consulting Unavailable AICHHOLZ, GUEST RELATIONS OFFICER PARK Primary Care Unavailable CHRISTIAN ., DR NGUYỄN Admitting Unavailable CHRISTIAN ., DR NGUYỄN Attending Unavailable ZIEBER, DR CASSIDY Ross Consulting Unavailable ELI DALAL Attending Unavailable ELI DALAL Admitting Unavailable AICHHOLZ, GUEST RELATIONS OFFICER PARK Primary Care Unavailable JENNIFER DRAKE Consulting Unavailable CAMILLE .DEANNE Consulting UnavailAp Jackson, ISACC Admitting Unavailable ISACC BEJARANO Attending Unavailable AICHHOLZ, GUEST RELATIONS OFFICER PARK Primary Care Unavailable ISACC BEJARANO Consulting Unavailable AICHHOLZ, GUEST RELATIONS OFFICER PARK Primary Care Unavailable NILL ., DR MCALLISTER Admitting Unavailable NILL ., DR MCALLISTER Attending Unavailable NILL ., DR MCALLISTER Consulting Unavailable AICHHOLZ, GUEST RELATIONS OFFICER PARK Primary Care Unavailable NILL ., DR MCALLISTER Admitting Unavailable NILL ., DR MCALLISTER Attending Unavailable GRACE LEO Consulting Unavailable JUAN ORO Consulting Unavailable AICHHOLZ, GUEST RELATIONS OFFICER PARK Consulting Unavailable AICHHOLZ, GUEST RELATIONS OFFICER PARK Primary Care Unavailable AICHHOLZ, GUEST RELATIONS OFFICER PARK Admitting Unavailable AICHHOLZ, GUEST RELATIONS OFFICER PARK Attending Unavailable AICHHOLZ, GUEST RELATIONS OFFICER PARK Consulting Unavailable AICHHOLZ, GUEST RELATIONS OFFICER PARK Admitting Unavailable AICHHOLZ, GUEST RELATIONS OFFICER PARK Attending Unavailable AICHHOLZ, GUEST RELATIONS OFFICER PARK Primary Care Unavailable Naeem MCDONALD, Kenny Primary Care Provider YISEL MITCHELL Attending Unavailable AICHHOLZPARK J Referring Unavailable AICHHOLZ, PARK J Primary Care Unavailable Aichholz GARMENT LOOPER, Park Unavailable Delma CHRISTIAN Attending Unavailable Delma CHRISTIAN Attending Unavailable Aichholz PANTOGRAPH TRANSFERRER-GUEST RELATIONS OFFICER, Park Banuelos Primary Care Provider Aichholz PANTOGRAPH TRANSFERRER-GUEST RELATIONS OFFICER, Park J Primary Care Provider Aichholz [facility], Park J Primary Care Provider VIJAY NG Attending Unavailable VIJAY NG Referring Unavailable AICHHOLZ, PARK Attending Unavailable AICHHOLZ, PARK Attending Unavailable LITO SUTTON Attending Unavailable AICHHOLZ, PARK Referring Unavailable AICHHOLZ, PARK Attending Unavailable AICHHOLZ, PARK Attending Unavailable Aichholz PANTOGRAPH TRANSFERRER-GUEST RELATIONS OFFICER, Park J Primary Care Provider Medications Current Medications Medication [...] carb/vitamin D3/vit K1 (CALCIUM SOFT CHEW ORAL) (11 sources) take 250 mg by mouth once [...] 0 Start Date: 12/06/21 Status: Ordered Cholecalciferol (13 sources) Vitamin D Cholecalciferol (VITAMIN D3 GUMMIES ADULT PO) Take by mouth 4 (four) times a day Active ciprofloxacin 500 mg oral tablet (3 sources) Quinolone Antimicrobial Start: End: take 1 tablet by mouth in the morning ciprofloxacin (Cipro) 500 MG tablet Indications: UTI (urinary tract infection), uncomplicated Take 1 tablet (500 mg) by mouth in the morning and 1 tablet (500 mg) before bedtime. Do all this for 7 days. 14 tablet 04/11/2025 04/18/2025 Active Start: 10-13-2022 take 1 tablet by brissa once daily Cipro 500 mg Tab 500 mg = 1 tab(s), Oral, Daily, Take 1 tablet the day before the procedure and 1 tablet after the procedure, # 2 tab(s), Refills(s) 0, Pharmacy: [id number], 176, cm, 05/19/22 16:10:00 EDT, Height/Length Dosing, 115, kg, 05/19/22 16:10:00 ED... Start Date: 10/13/22 Status: Ordered dutasteride 0.5 mg oral capsule (20 sources) 5-alpha Reductase Inhibitor Start: 11-04-2022 End: 10-30-2023 take 1 capsule by mouth in the morning dutasteride (Avodart) 0.5 MG capsule Take 1 capsule by mouth in the morning. 09/08/2023 Active ergocalciferol 1.25 mg oral capsule (9 sources) Provitamin D2 Compound Start: 11-14-2024 take 1 capsule by mouth every week ergocalciferol (Vitamin D2) 1.25 MG (67695 UT) capsule Indications: Other specified abnormal findings of blood chemistry Take 1 capsule by mouth once a week 12 capsule 1 11/14/2024 Active Start: 06-01-2024 take 1 capsule by mo uth every week ergocalciferol (Vitamin D2) 1.25 MG (25771 UT) capsule Take 50,000 Units by mouth 1 (one) time per week 06/01/2024 Active ferrous sulfate 325 mg oral tablet (14 sources) take 1 tablet by mouth in the morning ferrous sulfate 325 (65 Fe) MG tablet Take 325 mg by mouth in the morning and 325 mg before bedtime. Active fluticasone propionate 0.05 mg/actuat metered dose nasal spray (17 sources) Corticosteroid Start: 03-03-20 23 take 2 spray(s) nasal route in the morning fluticasone (Flonase) 50 MCG/ACT nasal spray Administer 2 sprays into each nostril in the morning. 03/03/2023 Active Iron Chews (7 sources) Start: 12-07-19 Iron Chews 1, Chewed, Daily, Refills(s) 0 Start Date: 12/06/21 Status: Ordered IRON, FERROUS SULFATE, ORAL (11 sources) IRON, FERROUS SULFATE, ORAL Take 30 mg by mouth. 2 tablets daily-chew Active lisinopril 5 mg oral tablet (20 sources) Angiotensin Converting Enzyme Inhibitor Start: 12-07-19 End: 05-03-20 take 1 tablet by mouth in the morning lisinopriL (PRINIVIL,ZESTRIL) 5 mg tablet TAKE 1 TABLET BY MOUTH IN THE MORNING 90 tablet 05/03/2025 Active 24 hr metoprolol succinate 25 mg extended release oral tablet (20 sources) beta-Adrenergic [place] Start: 05-10-20 25 take 1 tablet by mouth twice daily at bedtime metoprolol succinate XL (TOPROL XL) 25 mg 24 hr tablet TAKE 1 TABLET BY MOUTH TWICE DAILY (MORNING AND BEFORE BEDTIME) 180 tablet 05/10/2025 Active Start: 07-09-2023 End: 05-10-2025 take 1 tablet by mouth every twenty-four hours in the morning, then take 1 tablet by mouth at bedtime metoprolol succinate XL (TOPROL XL) 25 mg 24 hr tablet Take 1 tablet (25 mg total) by mouth in the morning and 1 tablet (25 mg total) before bedtime. 180 tablet 3 05/20/2024 05/10/2025 Discontinued Start: 10-24-2019 take 1 tablet by mouth once da alisa metoprolol 25 mg ER Tab 25 mg = 1 tab(s), Oral, Daily Start Date: 10/24/19 Status: Ordered Multi Vitamin+ (7 sources) Start: 10-24-2019 Multi Vitamin+ Start Date: 10/24/19 Status: Ordered Multiple Vitamin (multivitamin) tablet (17 sources) take 1 tablet by mouth in the morning Multiple Vitamin (multivitamin) tablet Take 1 tablet by mouth in the morning. Active take 1 tablet by mouth in the mo rning Multiple Vitamin (multivitamin) tablet Take 1 tablet by mouth in the morning. 0 Active multivitamin (THERAGRAN) tablet (11 sources) take 1 tablet by brissa th [...] the morning. 03/03/2023 08/18/2024 Discontinued (Therapy completed) Problems Active Problems Problem Classification Problem Date Documented Date Episodic/Chronic Cancer of prostate (20 sources) Malignant tumor of prostate; Translations: [Malignant neoplasm of prostate] Onset: 2 11-30-2020 Chronic Cardiac dysrhythmias (20 sources) Atrial flutter; Translations: [Nonsustained ventricular tachycardia ] Onset: 7 Resolved: 4 12-06-2021 Chronic Coagulation and hemorrhagic disorders (16 sources) Thrombocytopenic disorder; Translations: [Thrombocytopenia, unspecified] Onset: 4 05-25-2024 Chronic Conduction disorders (20 sources) Right bundle branch block; Translations: [Unspecified right bundle-branch block] Onset: 8 12-06-2021 Chronic Congestive heart failure; nonhypertensive (20 sources) Chronic systolic heart failure; Translations: [Chronic systolic (congestive) heart failure] Onset: 7 12-06-2021 Chronic Deficiency and other anemia (11 sources) Anemia 12-06-2021 Episodic Deficiency and other anemia (2 sources) Iron deficiency anemia secondary to inadequate dietary iron intake; Translations: [Other iron deficiency anemias] Onset: 5 02-13-2025 Episodic Disorders of lipid metabolism (20 sources) Hyperlipidemia, unspecified; Translations: [Mixed hyperlipidemia] Onset: [...] prostatitis] Onset: 2 10-24-2019 Chronic Nutritional deficiencies (20 sources) Vitamin D deficiency; Translations: [Vitamin D deficiency, unspecified] Onset: 4 04-05-2024 Chronic Other aftercare (1 source) jail (current) use of aspirin; Translations: [MED AIDE CURRENT USE OF ASPIRIN] Onset: 2 Episodic Other aftercare (1 source) Other penitentiary (current) drug therapy; Translations: [OTH MED AIDE CURRENT DRUG THERAPY] Onset: 2 Episodic Other [...] of leg 12-06-2021 Episodic Other endocrine disorders (18 sources) Hyperparathyroidism; Translations: [Hyperparathyroidism, unspecified] Onset: 4 05-25-2024 Chronic Other nervous system disorders (14 sources) Neuropathy; Translations: [Polyneuropathy, unspecified] Onset: 4 05-02-2024 Chronic Other nutritional; endocrine; and metabolic disorders (20 sources) Body mass index 30+ - obesity; Translations: [Body mass index (BMI) 37.0-37.9, adult] Onset: 4 12-06-2021 Chronic Other nutritional; endocrine; and metabolic disorders (5 sources) Obese class II; Translations: [Body mass index (BMI) 36.0-36.9, adult] Onset: 2 Chronic Other nutritional; endocrine; and metabolic disorders (18 sources) Hypocalcemia; Translations: [Hypocalcemia] Onset: 4 03-30-2024 [...] tachycardia; Translations: [Other ventricular tachycardia] Onset: 7 Urinary tract infections (17 sources) Urinary tract infection, site not specified; Translations: [Acute cystitis] Onset: 2 Resolved: 4 05-25-2024 Episodic Past or Other Problems Problem Classification Problem Date Documented Da te Episodic/Chronic Acute and unspecified renal failure (15 sources) Acute renal failure syndrome; Translations: [Acute [...] Translations: [Other iron deficiency anemias] Onset: 01-01-2022 Resolved: 02-13-2025 Episodic Deficiency and other anemia (5 sources) Iron deficiency anemia, unspecified; Translations: [IRON DEFICIENCY ANEMIA UNSPECIFIED] Onset: 12-18-2021 Episodic Fluid and electrolyte disorders (15 sources) Hypokalemia; Translations: [Hypokalemia] Onset: 01-15-2014 03-12-2023 Episodic Malaise and fatigue (16 sources) Asthenia; Translations: [Weakness] Onset: 02-18-2024 02-18-2024 Episodic Other diseases of kidney and ureters (6 sources) Urinary tract obstruction; Translations: [Other obstructive and reflux uropathy] Onset: 05-19-2022 Episodic Other gastrointestinal disorders (1 source) Bariatric surgery status; Translations: [BARIATRIC SURGERY STATUS] Onset: 12-24-2021 Episodic Other gastrointestinal disorders (20 sources) History of bariatric surgical procedure; Translations: [Bariatric surgery status] Onset: 11-04-2023 11-04-2023 Episodic Other lower respiratory disease (11 sources) Dyspnea; Translations: [Shortness of breath] Onset: 05-19-2022 05-19-2022 Episodic Other nervous system disorders (14 sources) Paresthesia of foot ; Translations: [Paresthesia of skin] Onset: 02-18-2024 02-18-2024 Episodic Other screening for suspected conditions (not mental disorders or infectious disease) (20 sources) Other specified abnormal findings of blood chemistry; Translations: [Other abnormal blood chemistry] Onset: 03-25-2017 Resolved: 05-25-2024 02-18-2024 Episodic Residual codes; unclassified (20 sources) H/O cardiac surgery; Translations: [Other specified postprocedural states] Onset: 04-27-2024 05-02-2024 Episodic Results Test Name Value Interpretation Reference Range Facility CC CMP (CMP) (FOR REMOTE FH C USE)on 04-11-2025 Albumin [Mass/Vol] 3.7 g/dL 3.4 - 5.0 g/dL [facility] ALBUMIN GLOBULIN RATIO 1.3 [facility] ALP [Catalytic activity/Vol] 110 U/L 46 - 116 U/L [facility] ALT [Catalytic activity/Vol] 57 U/L 16 - 63 U/L [facility] Anion gap [Moles/Vol] 18 mmol/L [facility] AST [Catalytic activity/Vol] 29 U/L 15 - 37 U/L [facility] Bilirubin [Mass/Vol] 0.7 mg/dL 0.2 - 1 .0 mg/dL [facility] Calcium [Mass/Vol] 8.4 mg/dL Low 8.5 - 10. 1 mg/dL [facility] Chloride [Moles/Vol] 113 mmol/L High 98 - 10 7 mmol/L [facility] CO2 [Moles/Vol] 18.4 mmol/L Low 21.0 - 32.0 mmol/L [facility] Creatinine [Mass/Vol] 1.11 mg/dL 0.70 - 1.30 mg/dL [facility] GFR/1.73 sq M.predicted CKD-EPI (S/P/Bld) [Vol rate/Area] >60 >=60 mL/min/1.73m 2 [facility] Globulin (S) [Mass/Vol] 2.8 g/dL [facility] Glucose [Mass/Vol] 90 mg/dL 74 - 106 mg/dL [facility] Interpretation and review of laboratory results Abnormal [facility] Potassium [Moles/Vol] 4.4 mmol/L 3.5 - 5.1 mmol/L [facility] Protein [Mass/Vol] 6.5 g/dL 6.4 - 8.2 g/dL NO [facility] Sodium [Moles/Vol] 145 mmol/L 136 - 145 mmol/L [facility] TBH EGFR-NON AF ECUADOREAN >60 >=60 mL/min/1.73m 2 [facility] Urea nitrogen [Mass/Vol] 41 mg/dL High 7.0 - 18.0 mg/dL [facility] Urea nitrogen/Creatinine [Mass ratio] 36.9 mg/mg [facility] Urology Office/Clinic Noteon 10-24-2024 Urology Office/Clinic Note [...] and history for this patient from Dr. Christian. I have reviewed and verified the staff [...] require monitoring Follow-up With When Contact Information ANAHI MCDONALD, Delma Ross, URL [facility] [address], [place] [address] [phone] Additional Instructions: 1 yr w/ PSA and KUB Patient Education Prostatitis Shala Willett, personally scribed for Dr. Christian on 10/24/2024 17:15:57. . Documentation recorded by the scribeShala, accurately reflects the services(s) I performed and decisions made by me. Authenticated by Dr. Christian on 10/24/2024 17:17:24. Problem List/Past Medical History [...] ventricular tachycar (more content not included)... Normal [facility] Comment on above: Result Comment: Elec tronically Signed By: Delma CHRISTIAN MD\.br\Date and Time Signed: 10/24/24 17:17 EST\.br\Electronically Co-Signed By: Shala Soares.br\Date and Time Co-Signed: 10/24/24 17:16 EST MHPT PSA, DIAGNOSTICon 10-21 PROSTATE SPECIFIC ANTIGEN DX 2.13 ng/mL NINF - 4.00 ng/mL [facility] ALL CBC WITH AUTO DIFFon BASOPHILS ABSOLUTE AUTO 0.1 [facility] Basophils/100 WBC (Bld) 0.9 % 0.2 - 2.0 % [facility] Eosinophils/100 WBC (Bld) 3.3 % 0.9 - 7.0 % [facility] Erythrocyte distribution width (RBC) [Ratio] 14.8 % 11.0 - 15.0 % [facility] Hematocrit (Bld) [Volume fraction] 38.5 % Low 42.0 - 54.0 % [facility] Hemoglobin (Bld) [Mass/Vol] 11.6 g/dL Low 14.0 - 18.0 g/dL [facility] IMMATURE GRANULOCYTES ABS AUTO 0.01 [facility] Immature granulocytes/100 WBC (Bld) 0.2 % 0.0 - 0.5 % [facility] Interpretation and review of laboratory results Abnormal [facility] LYMPHOCYTES ABSOLUTE AUTO 1.9 [facility] Lymphocytes/100 WBC (Bld) 29.1 % 20.5 - 60.0 % [facility] MCH (RBC) [Entitic mass] 31.5 pg 25.9 - 34.0 pg [facility] MCHC (RBC) [Mass/Vol] 30.1 g/dL 29.9 - 35.2 g/dL [facility] MCV (RBC) [Entitic vol] 104.6 fL High 80.0 - 94.0 fL [facility] MONOCYTES ABSOLUTE AUTO 0.4 [facility] Monocytes/100 WBC (Bld) 6.9 % 1.7 - 12.0 % [facility] NEUTROPHILS ABSOLUTE AUTO 3.8 [facility] Neutrophils/100 WBC (Bld) 59.6 % 43.0 - 75.0 % [facility] Platelet mean volume (Bld) [Entitic vol] 10.6 fL 9.5 - 13.5 fL [facility] EO # 0.2 [facility] PLT 140 Low [facility] RBC 3.68 Low [facility] WBC 6.4 [facility] LIPID PROFILE (FASTING)o n 06-07-2024 CHOL [facility]IO [facility] Comment on above: 3.3 - 4.4 LOW RISK 4.4 - 7.1 AVERAGE RISK 7.1 - 11.0 MODERATE RISK >11.0 HIGH RISK Cholesterol [Mass/Vol] 68 mg/dL NINF - 200 mg/dL [facility] Cholesterol in HDL [Mass/Vol] 47 mg/dL 40 - 60 mg/dL [facility] Comment on above: > or =60 mg/dl - LOW CARDIOVASCULAR RISK <40 mg/dl - HIGH CARDIOVASCULAR RISK Magnesium [Mass/Vol] 13.8 mg/dL [facility] Comment on above: <100 mg/dl OPTIMAL 100-129 mg/dl NEAR OR ABOVE OPTIMAL 130-159 mg/dl BORDERLINE HIGH 160-189 mg/dl HIGH >190 mg/dl VERY HIGH Magnesium [Mass/Vol] 7.2 mg/dL [facility] Triglyceride [Mass/Vol] 36 mg/dL NINF - 150 mg/dL [facility] ER URINE PROFILEon 2 Bilirubin Ql (U) Negative Normal NEGATIVE [facility] Comment on above: Performed By: #### U MICRO, ERUR #### [facility] [address] [place] [address] Dr. Santhosh Francois Clarity (U) CLEAR Normal CLEAR [facility] Comment on above: Performed By: #### U MICRO, ERUR #### [facility] [address] [address] [address] Santhosh Francois Color (U) LT. YELLOW Normal YELLOW [facility] Comment on above: Performed By: #### U MICRO, ERUR #### [facility] [address] [address] [address] Santhosh PALACIOS A micrscopic examination will be performed if indicated. Normal [facility] Comment on above: Performed By: #### U MICRO, ERUR #### [facility] [address] [address] [address] Santhosh Francois Glucose Ql (U) Negative Normal NEGATIVE [facility] Comment on above: Performed By: #### U MICRO, ERUR #### [facility] [address] [address] [address] Santhosh Francois Hemoglobin Ql (U) LARGE Abnormal NEGATIVE [facility] Comment on above: Performed By: #### U MICRO, ERUR #### [facility] [address] [address] [address] Santhosh Francois Ketones Ql (U) Negative Normal NEGATIVE [facility] Comment on above: Performed By: #### U MICRO, ERUR #### [facility] [address] [place] [address] Dr. Santhosh Francois LEUKOCYTES Negative Normal NEGATIVE [facility] Comment on above: Performed By: #### U MICRO, ERUR #### [facility] [address] [address] [address] Santhosh Francois Nitrite Ql (U) Negative Normal NEGATIVE [facility] Comment on above: Performed By: #### U MICRO, ERUR #### [facility] [address] [place] [address] Dr. Santhosh Francois pH (U) 5.0 [pH] Normal 5-9 [facility] Comment on above: Performed By: #### U MICRO, ERUR #### [facility] [address] [address] [address] Santhosh Francois SPEC GRAVITY 1.010 Normal 1.005-<=1.025 [facility] Comment on above: Performed By: #### U MICRO, ERUR #### [facility] [address] [place] [address] Dr. Santhosh Francois UA PROTEIN TRACE Normal NEGATIVE/ TRACE [facility] Comment on above: Performed By: #### U MICRO, ERUR #### [facility] [address] [address] [address] Santhosh Francois UR MICRO IND INDICATED Normal [facility] Comment on above: Performed By: #### U MICRO, ERUR #### [facility] [address] [place] [address] Dr. Santhosh Francois Urobilinogen Qn (U) 0.2 {Malini'U}/dL Normal 0.2 - 1. 0 [facility] Comment on above: Performed By: #### U MICRO, ERUR #### [facility] [address] [place] [address] Dr. Santhosh Francois URINE MICROSCOPIC ONLYon BACTERIA NONE SEEN Normal NONE SEEN [facility] Comment on above: Performed By: #### C BC #### [facility] [address] [place] [address] Dr. Santhosh Francois Bacteria identified Cx Nom (U) NOT INDICATED Normal [facility] Comment on above: Performed By: #### C BC #### [facility] [address] [place] [address] Dr. Santhosh Francois CAST NONE SEEN Normal NONE SEEN [facility] Comment on above: Performed By: #### C BC #### [facility] [address] [place] [address] Dr. Santhosh Francois Crystals LM Nom (Urine sed) NONE SEEN Normal NONE SEEN [facility] Comment on above: Performed By: #### C BC #### [facility] [address] [place] [address] Dr. Santhosh Francois Epithelial cells LM Ql (Urine sed) RARE Normal NONE SEEN /RARE [facility] Comment on above: Performed By: #### C BC #### [facility] [address] [place] [address] Dr. Santhosh Francois MUCOUS NONE SEEN Normal NONE SEEN [facility] Comment on above: Performed By: #### C BC #### [facility] [address] [place] [address] Dr. Santhosh Francois RBC 10-20 Abnormal 0-2 [facility] Comment on above: Performed By: #### C BC #### [facility] [address] [place] [address] Dr. Santhosh Francois WBC NONE SEEN Normal NONE SEEN [facility] Comment on above: Performed By: #### C BC #### [facility] [address] [address] [address] Santhosh Francois LIPID PROFILEon 05-16-2022 CHOL-HDL RATIO NORM SEE BELOW Normal [facility] Comment on above: Result Comment: 3.3 - 4.4 LOW RISK 4.4 - 7.1 AVERAGE RISK 7.1 - 11.0 MODERATE RISK >11.0 HIGH RISK Performed By: #### C BC #### [facility] [address] [address] [address] Santhosh Francois Cholesterol [Mass/Vol] 58 mg/dL Normal <=200 [facility] Comment on above: Performed By: #### C BC #### [facility] [address] [address] [address] Santhosh Francois Cholesterol in HDL [Mass/Vol] 38 mg/dL Critically low 40-60 [facility] Comment on above: Performed By: #### C BC #### [facility] [address] [address] [address] Santhosh Francois Cholesterol in LDL [Mass/Vol] 14.0 mg/dL Normal [facility] Comment on above: Performed By: #### C BC #### [facility] [address] [address] [address] Santhosh Francois Cholesterol.total/Ch olesterol in HDL [Mass ratio] 1.5 {ratio} Normal [facility] Comment on above: Performed By: #### C BC #### [facility] [address] [address] [address] Santhosh Francois HDL NORMAL > or = 60 mg/dl - LOW CARDIOVASCULAR RISK <40 mg/dl - HIGH CARDIOVASCULAR RISK Normal [facility] Comment on above: Performed By: #### C BC #### [facility] [address] [address] [address] Santhosh Francois LDL CALC NORMAL SEE BELOW Normal [facility] Comment on above: Result Comment: <100 mg/dl OPTIMAL 100 - 129 mg/dl NEAR OR ABOVE OPTIMAL 130 - 159 mg/dl BORDERLINE HIGH 160 - 189 mg/dl HIGH >190 mg/dl VERY HIGH Performed By: #### C BC #### [facility] [address] [place] [address] Dr. Santhosh Francois Triglyceride [Mass/Vol] 30 mg/dL Normal <=150 [facility] Comment on above: Performed By: #### C BC #### [facility] [address] [address] [address] Santhosh Francois VLDL CALC 6.0 mg/dL Normal [facility] Comment on above: Performed By: #### C BC #### [facility] [address] [place] [address] Dr. Santhosh Francois PROF 14(COMP METB)on 022 Albumin [Mass/Vol] 3.6 g/dL Normal 3.4-5.0 [facility] Comment on above: Performed By: #### C BC #### [facility] [address] [place] [address] Dr. Santhosh Francois Albumin/Globulin [Mass ratio] 1.1 {ratio} Normal [facility] Comment on above: Performed By: #### C BC #### [facility] [address] [place] [address] Dr. Santhosh Francois ALP [Catalytic activity/Vol] 145 U/L Critically high 46-116 [facility] Comment on above: Performed By: #### C BC #### [facility] [address] [place] [address] Dr. Santhosh Francois ALT [Catalytic activity/Vol] 102 U/L Critically high 16-63 [facility] Comment on above: Performed By: #### C BC #### [facility] [address] [place] [address] Dr. Santhosh Francois Anion gap [Moles/Vol] 12.7 mmol/L Normal [facility] Comment on above: Performed By: #### C BC #### [facility] [address] [place] [address] Dr. Santhosh Francois AST [Catalytic activity/Vol] 68 U/L Critically high 15-37 [facility] Comment on above: Performed By: #### C BC #### [facility] [address] [place] [address] Dr. Santhosh Francois Bilirubin [Mass/Vol] 1.0 mg/dL Normal 0.2-1.0 [facility] Comment on above: Performed By: #### C BC #### [facility] [address] [address] [address] Santhosh Francois Calcium [Mass/Vol] 8.0 mg/dL Critically low 8.5-10.1 [facility] Comment on above: Performed By: #### C BC #### [facility] [address] [place] [address] Dr. Santhosh Francois Chloride [Moles/Vol] 111 mmol/L Critically high 98-107 [facility] Comment on above: Performed By: #### C BC #### [facility] [address] [place] [address] Dr. Santhosh Francois CO2 [Moles/Vol] 20.6 mmol/L Critically low 21.0-32.0 [facility] Comment on above: Performed By: #### C BC #### [facility] [address] [place] [address] Dr. Santhosh Francois Creatinine [Mass/Vol] 0.96 mg/dL Normal 0.70-1.30 [facility] Comment on above: Performed By: #### C BC #### [facility] [address] [place] [address] Dr. Santhosh Francois EGFR-AF ECUADOREAN >60 Normal >=60 [facility] Comment on above: Performed By: #### C BC #### [facility] [address] [place] [address] Dr. Santhosh Francois EGFR-NON AF ECUADOREAN >60 Normal >=60 [facility] Comment on above: Performed By: #### C BC #### [facility] [address] [place] [address] Dr. Santhosh Francois Globulin (S) [Mass/Vol] 3.2 g/dL Normal [facility] Comment on above: Performed By: #### C BC #### [facility] [address] [place], [place] [id number] Dr. Sanhtosh Francois Glucose [Mass/Vol] 88 mg/dL Normal 74-106 [facility] Comment on above: Performed By: #### C BC #### [facility] [address] [address] [address] Santhosh Francois Potassium [Moles/Vol] 4.3 mmol/L Normal 3.5-5.1 [facility] Comment on above: Performed By: #### C BC #### [facility] [address] [address] [address] Santhosh Francois Protein [Mass/Vol] 6.8 g/dL Normal 6.4-8.2 [facility] Comment on above: Performed By: #### C BC #### [facility] [address] [place] [address] Dr. Santhosh Franocis Sodium [Moles/Vol] 140 mmol/L Normal 136-145 [facility] Comment on above: Performed By: #### C BC #### [facility] [address] [place] [address] Dr. Santhosh Francois Urea nitrogen [Mass/Vol] 26.0 mg/dL Critically high 7.0-18.0 [facility] Comment on above: Performed By: #### C BC #### [facility] [address] [place] [address] Dr. Snathosh Francois Urea nitrogen/Creatinine [Mass ratio] 27.1 mg/mg Normal [facility] Comment on above: Performed By: #### C BC #### [facility] [address] [place] [address] Dr. Santhosh Francois CBC AUTO DIFFon 04-30-2022 BASO # 0.0 103/ul Normal 0.0-0.1 [facility] Comment on above: Performed By: #### C BC #### [facility] [address] [place] [address] Dr. Santhosh Francois Basophils/100 WBC (Bld) 0.5 % Normal 0.2-2.0 [facility] Comment on above: Performed By: #### C BC #### [facility] [address] [place] [address] Dr. Santhosh Francois EO # 0.2 103/ul Normal 0.0-0.7 [facility] Comment on above: Performed By: #### C BC #### [facility] [address] [place] [address] Dr. Santhosh Francois Eosinophils/100 WBC (Bld) 2.9 % Normal 0.9-7.0 [facility] Comment on above: Performed By: #### C BC #### [facility] [address] [place] [address] Dr. Santhosh Francois Erythrocyte distribution width (RBC) [Ratio] 14.9 % Normal 11.0-15.0 [facility] Comment on above: Performed By: #### C BC #### [facility] [address] [place] [address] Dr. Santhosh Francois Hematocrit (Bld) [Volume fraction] 39.1 % Critically low 42.0-54.0 [facility] Comment on above: Performed By: #### C BC #### [facility] [address] [place] [address] Dr. Santhosh Francois Hemoglobin (Bld) [Mass/Vol] 12.2 g/dL Critically low 14.0-18.0 [facility] Comment on above: Performed By: #### C BC #### [facility] [address] [place] [address] Dr. Santhosh Francois IG # 0.01 10e3/ul Normal 0.00-0.03 [facility] Comment on above: Performed By: #### C BC #### [facility] [address] [place] [address] Dr. Santhosh Francois IG % 0.2 % Normal 0.0-0.5 [facility] Comment on above: Performed By: #### C BC #### [facility] [address] [place] [address] Dr. Santhosh Francois LYMPH # 2.0 103/ul Normal 1.2-3.8 [facility] Comment on above: Performed By: #### C BC #### [facility] [address] [place] [address] Dr. Santhosh Francois Lymphocytes/100 WBC (Bld) 32.6 % Normal 20.5-60.0 [facility] Comment on above: Performed By: #### C BC #### [facility] [address] [place] [address] Dr. Santhosh Francois MANUAL DIFF REQ NO Normal [facility] Comment on above: Performed By: #### C BC #### [facility] [address] [place] [address] Dr. Santhosh Francois MCH (RBC) [Entitic mass] 29.9 pg Normal 25.9-34.0 [facility] Comment on above: Performed By: #### C BC #### [facility] [address] [place] [address] Dr. Santhosh Francois MCHC (RBC) [Mass/Vol] 31.2 g/dL Normal 29.9-35.2 [facility] Comment on above: Performed By: #### C BC #### [facility] [address] [place] [address] Dr. Santhosh Francois MCV (RBC) [Entitic vol] 95.8 fL Critically high 80.0-94.0 [facility] Comment on above: Performed By: #### C BC #### [facility] [address] [place] [address] Dr. Santhosh Francois MONO # 0.5 103/ul Normal 0.3-0.8 [facility] Comment on above: Performed By: #### C BC #### [facility] [address] [place] [address] Dr. Santhosh Francois Monocytes/100 WBC (Bld) 7.9 % Normal 1.7-12.0 [facility] Comment on above: Performed By: #### C BC #### [facility] [address] [place] [address] Dr. Santhosh Francois NEUT # 3.5 103/ul Normal 1.4-6.5 [facility] Comment on above: Performed By: #### C BC #### [facility] [address] [place] [address] Dr. Santhosh Francois Neutrophils/100 WBC (Bld) 55.9 % Normal 43.0-75.0 [facility] Comment on above: Performed By: #### C BC #### [facility] [address] [place] [address] Dr. Santhosh Francois Platelet mean volume (Bld) [Entitic vol] 10.6 fL Normal 9.5-13.5 [facility] Comment on above: Performed By: #### C BC #### [facility] [address] [address] [address] Santhosh Francois PLT 125 103/ul Critically low 150-450 [facility] Comment on above: Performed By: #### C BC #### [facility] [address] [place] [address] Dr. Santhosh Francois RBC 4.08 106/ul Critically low 4.70-6.10 [facility] Comment on above: Performed By: #### C BC #### [facility] [address] [place] [address] Dr. Santhosh Francois WBC 6.2 103/ul Normal 4.0-11.0 [facility] Comment on above: Performed By: #### C BC #### [facility] [address] [place] [address] ABD/PELVIS WO CONon [...] CASSIDY DILLON Date: 2022-04-30 18:05 Normal [facility] CULTURE URINEon 04-30-2022 CULTURE URINE Culture Observations: NO GROWTH. Normal [facility] Comment on above: Performed By: #### U RCX #### [facility] [address] [place] [address] Dr. Santhosh Francois ER URINE PROFILEon 2 Bilirubin Ql (U) Unable to perform testing due to color interference. Abnormal NEGATIVE [facility] Comment on above: Performed By: #### NICOL EASON #### [facility] [address] [place] [address] Dr. Santhosh Francois Clarity (U) TURBID Abnormal CLEAR [facility] Comment on above: Performed By: #### MICHELE EASONRO #### [facility] [address] [place] [address] Dr. Santhosh Francois Color (U) RED Abnormal YELLOW [facility] Comment on above: Performed By: #### NICOL EASON #### [facility] [address] [place] [address] Dr. Santhosh Francois ERUCARLOTA A micrscopic examination will be performed if indicated. Normal [facility] Comment on above: Performed By: #### NICOL EASON #### [facility] [address] [place] [address] Dr. Santhosh Francois Glucose Ql (U) Unable to perform testing due to color interference. Abnormal NEGATIVE [facility] Comment on above: Performed By: #### MICHELE EASONRO #### [facility] [address] [place] [address] Dr. Santhosh Francois Hemoglobin Ql (U) Unable to perform testing due to color interference. Abnormal NEGATIVE [facility] Comment on above: Performed By: #### MICHELE EASONRO #### [facility] [address] [place] [address] Dr. Santhosh Francois Ketones Ql (U) Unable to perform testing due to color interference. Abnormal NEGATIVE [facility] Comment on above: Performed By: #### NICOL EASON #### [facility] [address] [place] [address] Dr. Santhosh Francois LEUKOCYTES Unable to perform testing due to color interference. Abnormal NEGATIVE [facility] Comment on above: Performed By: #### MICHELE EASONRO #### [facility] [address] [place] [address] Dr. Santhosh Francois Nitrite Ql (U) Unable to perform testing due to color interference. Abnormal NEGATIVE [facility] Comment on above: Performed By: #### NICOL EASON #### [facility] [address] [place] [address] Dr. Santhosh Francois pH (U) 6.0 [pH] Normal 5-9 [facility] Comment on above: Performed By: #### MICHELE EASONRO #### [facility] [address] [place] [address] Dr. Santhosh Francois SPEC GRAVITY 1.025 Normal 1.005-<=1.025 [facility] Comment on above: Performed By: #### NICOL EASON #### [facility] [address] [place] [address] Dr. Santhosh Francois UA PROTEIN Unable to perform testing due to color interference. Normal NEGATIVE/ TRACE [facility] Comment on above: Performed By: #### NICOL EASON #### [facility] [address] [place] [address] Dr. Santhosh Francois UR MICRO IND INDICATED Normal [facility] Comment on above: Performed By: #### NICOL EASON #### [facility] [address] [place] [address] Dr. Santhosh Francois UROBILINOGEN Unable to perform testing due to color interference. Normal 0.2 - 1.0 [facility] Comment on above: Performed By: #### NICOL EASON #### [facility] [address] [place] [address] Dr. Santhosh Francois PROF CHEM 8 (BAS METB)on Anion gap [Moles/Vol] 12.6 mmol/L Normal [facility] Comment on above: Performed By: #### B MP #### [facility] [address] [place] [address] Dr. Santhosh Francois Calcium [Mass/Vol] 7.7 mg/dL Critically low 8.5-10.1 [facility] Comment on above: Performed By: #### B MP #### [facility] [address] [place] [address] Dr. Santhosh Francois Chloride [Moles/Vol] 114 mmol/L Critically high 98-107 [facility] Comment on above: Performed By: #### B MP #### [facility] [address] [place] [address] Dr. Santhosh Francois CO2 [Moles/Vol] 21.1 mmol/L Normal 21.0-32.0 [facility] Comment on above: Performed By: #### B MP #### [facility] [address] [place] [address] Dr. Santhosh Francois Creatinine [Mass/Vol] 1.12 mg/dL Normal 0.70-1.30 [facility] Comment on above: Performed By: #### B MP #### [facility] [address] [place] [address] Dr. Santhosh Francois EGFR-AF ECUADOREAN >60 Normal >=60 [facility] Comment on above: Performed By: #### B MP #### [facility] [address] [place] [address] Dr. Santhosh Francois EGFR-NON AF ECUADOREAN >60 Normal >=60 [facility] Comment on above: Performed By: #### B MP #### [facility] [address] [place] [address] Dr. Santhosh Francois Glucose [Mass/Vol] 90 mg/dL Normal 74-106 [facility] Comment on above: Performed By: #### B MP #### [facility] [address] [place] [address] Dr. Santhosh Francois Potassium [Moles/Vol] 3.7 mmol/L Normal 3.5-5.1 [facility] Comment on above: Performed By: #### B MP #### [facility] [address] [place] [address] Dr. Santhosh Francois Sodium [Moles/Vol] 144 mmol/L Normal 136-145 [facility] Comment on above: Performed By: #### B MP #### [facility] [address] [place] [address] Dr. Santhosh Francois Urea nitrogen [Mass/Vol] 23.0 mg/dL Critically high 7.0-18.0 [facility] Comment on above: Performed By: #### B MP #### [facility] [address] [place] [address] Dr. Santhosh Francois Urea nitrogen/Creatinine [Mass ratio] 20.5 mg/mg Normal [facility] Comment on above: Performed By: #### B MP #### [facility] [address] [place] [address] Dr. Santhosh Francois URINE MICROSCOPIC ONLYon BACTERIA NONE SEEN Normal NONE SEEN [facility] Comment on above: Performed By: #### MICHELE EASONRO #### [facility] [address] [place] [address] Dr. Santhosh Francois Bacteria identified Cx Nom (U) NOT INDICATED Normal [facility] Comment on above: Performed By: #### MICHELE EASONRO #### [facility] [address] [place] [address] Dr. Santhosh Francois CAST NONE SEEN Normal NONE SEEN [facility] Comment on above: Performed By: #### E DONY, UMICRO #### [facility] [address] [place] [address] Dr. Santhosh Francois Crystals LM Nom (Urine sed) NONE SEEN Normal NONE SEEN [facility] Comment on above: Performed By: #### E DONY, UMICRO #### [facility] [address] [place] [address] Dr. Santhosh Francois Epithelial cells LM Ql (Urine sed) NONE SEEN Normal NONE SEEN /RARE [facility] Comment on above: Performed By: #### E DONY, ICRO #### [facility] [address] [place] [address] Dr. Santhosh Francois MUCOUS NONE SEEN Normal NONE SEEN [facility] Comment on above: Performed By: #### E DONY, ICRO #### [facility] [address] [place] [address] Dr. Santhosh Francois RBC (U) [#/Vol] /uL Abnormal 0-2 [facility] Comment on above: Performed By: #### Camilo NAPOLES, KAISER HAYWARDRO #### [facility] [address] [place] [address] Dr. Santhosh Francois WBC 10-20 Abnormal NONE SEEN [facility] Comment on above: Performed By: #### E DONY, ICRO #### [facility] [address] [place] [address] Dr. Santhosh Francois CBC AUTO DIFFon 03-07-2022 BASO # 0.1 103/ul Normal 0.0-0.1 [facility] Comment on above: Performed By: #### C BC #### [facility] [address] [place] [address] Dr. Santhosh Francois Basophils/100 WBC (Bld) 0.8 % Normal 0.2-2.0 [facility] Comment on above: Performed By: #### C BC #### [facility] [address] [place] [address] Dr. Santhosh Francois EO # 0.1 103/ul Normal 0.0-0.7 [facility] Comment on above: Performed By: #### C BC #### [facility] [address] [place] [address] Dr. Santhosh Francois Eosinophils/100 WBC (Bld) 1.9 % Normal 0.9-7.0 [facility] Comment on above: Performed By: #### C BC #### [facility] [address] [place] [address] Dr. Santhosh Francois Erythrocyte distribution width (RBC) [Ratio] 16.4 % Critically high 11.0-15.0 [facility] Comment on above: Performed By: #### C BC #### [facility] [address] [place] [address] Dr. Santhosh Francois Hematocrit (Bld) [Volume fraction] 43.0 % Normal 42.0-54.0 [facility] Comment on above: Performed By: #### C BC #### [facility] [address] [place] [address] Dr. Santhosh Francois Hemoglobin (Bld) [Mass/Vol] 13.4 g/dL Critically low 14.0-18.0 [facility] Comment on above: Performed By: #### C BC #### [facility] [address] [place] [address] Dr. Santhosh Francois IG # 0.02 10e3/ul Normal 0.00-0.03 [facility] Comment on above: Performed By: #### C BC #### [facility] [address] [place] [address] Dr. Santhosh Francois IG % 0.3 % Normal 0.0-0.5 [facility] Comment on above: Performed By: #### C BC #### [facility] [address] [place] [address] Dr. Santhosh Francois LYMPH # 1.8 103/ul Normal 1.2-3.8 [facility] Comment on above: Performed By: #### C BC #### [facility] [address] [place] [address] Dr. Santhosh Francois Lymphocytes/100 WBC (Bld) 29.2 % Normal 20.5-60.0 [facility] Comment on above: Performed By: #### C BC #### [facility] [address] [address] [address] Santhosh Francois MANUAL DIFF REQ NO Normal [facility] [facility] Comment on above: Performed By: #### C BC #### [facility] [address] [place] [address] Dr. Santhosh Francois MCH (RBC) [Entitic mass] 30.5 pg Normal 25.9-34.0 [facility] Comment on above: Performed By: #### C BC #### [facility] [address] [place] [address] Dr. Santhosh Francois MCHC (RBC) [Mass/Vol] 31.2 g/dL Normal 29.9-35.2 [facility] Comment on above: Performed By: #### C BC #### [facility] [address] [place] [address] Dr. Santhosh Francois MCV (RBC) [Entitic vol] 97.9 fL Critically high 80.0-94.0 [facility] Comment on above: Performed By: #### C BC #### [facility] [address] [place] [address] Dr. Santhosh Francois MONO # 0.4 103/ul Normal 0.3-0.8 [facility] Comment on above: Performed By: #### C BC #### [facility] [address] [place] [address] Dr. Santhosh Francois Monocytes/100 WBC (Bld) 6.3 % Normal 1.7-12.0 [facility] Comment on above: Performed By: #### C BC #### [facility] [address] [place] [address] Dr. Santhosh Francois NEUT # 3.8 103/ul Normal 1.4-6.5 [facility] Comment on above: Performed By: #### C BC #### [facility] [address] [place] [address] Dr. Santhosh Francois Neutrophils/100 WBC (Bld) 61.5 % Normal 43.0-75.0 [facility] Comment on above: Performed By: #### C BC #### [facility] [address] [place] [address] Dr. Santhosh Francois Platelet mean volume (Bld) [Entitic vol] 10.5 fL Normal 9.5-13.5 [facility] Comment on above: Performed By: #### C BC #### [facility] [address] [place] [address] Dr. Santhosh Francois PLT 148 103/ul Critically low 150-450 [facility] Comment on above: Performed By: #### C BC #### [facility] [address] [place] [address] Dr. Santhosh Francois RBC 4.39 106/ul Critically low 4.70-6.10 [facility] Comment on above: Performed By: #### C BC #### [facility] [address] [place] [address] Dr. Santhosh Francois WBC 6.2 103/ul Normal 4.0-11.0 [facility] Comment on above: Performed By: #### C BC #### [facility] [address] [place] [address] Dr. Santhosh Francois IRONon 03-07-2022 Iron [Mass/Vol] 125.0 ug/dL Normal 65.0-175.0 [facility] Comment on above: Performed By: #### I JAN #### [facility] [address] [place] [address] Dr. Santhosh Francois CBC AUTO DIFFon 12-03-2021 BASO # 0.0 103/ul Normal 0.0-0.1 [facility] Comment on above: Performed By: #### C BC #### [facility] [address] [place] [address] Dr. Santhosh Francois Basophils/100 WBC (Bld) 0.7 % Normal 0.2-2.0 [facility] Comment on above: Performed By: #### C BC #### [facility] [address] [place] [address] Dr. Santhosh Francois EO # 0.2 103/ul Normal 0.0-0.7 [facility] Comment on above: Performed By: #### C BC #### [facility] [address] [place] [address] Dr. Santhosh Francois Eosinophils/100 WBC (Bld) 3.1 % Normal 0.9-7.0 [facility] Comment on above: Performed By: #### C BC #### [facility] [address] [place] [address] Dr. Santhosh Francois Hematocrit (Bld) [Volume fraction] 40.4 % Critically low 42.0-54.0 [facility] Comment on above: Performed By: #### C BC #### [facility] [address] [place] [address] Dr. Santhosh Francois Hemoglobin (Bld) [Mass/Vol] 11.5 g/dL Critically low 14.0-18.0 [facility] Comment on above: Performed By: #### C BC #### [facility] [address] [place] [address] Dr. Santhosh Francois IG # 0.01 10e3/ul Normal 0.00-0.03 [facility] Comment on above: Performed By: #### C BC #### [facility] [address] [place] [address] Dr. Santhosh Francois IG % 0.2 % Normal 0.0-0.5 [facility] Comment on above: Performed By: #### C BC #### [facility] [address] [place] [address] Dr. Santhosh Francois LYMPH # 2.0 103/ul Normal 1.2-3.8 [facility] Comment on above: Performed By: #### C BC #### [facility] [address] [place] [address] Dr. Santhosh Francois Lymphocytes/100 WBC (Bld) 33.9 % Normal 20.5-60.0 [facility] Comment on above: Performed By: #### C BC #### [facility] [address] [place] [address] Dr. Santhosh Francois MANUAL DIFF REQ NO Normal [facility] Comment on above: Performed By: #### C BC #### [facility] [address] [place] [address] Dr. Santhosh Francois MCH (RBC) [Entitic mass] 24.1 pg Critically low 25.9-34.0 [facility] Comment on above: Performed By: #### C BC #### [facility] [address] [place] [address] Dr. Santhosh Francois MCHC (RBC) [Mass/Vol] 28.5 g/dL Critically low 29.9-35.2 [facility] Comment on above: Performed By: #### C BC #### [facility] [address] [place] [address] Dr. Santhosh Francois MCV (RBC) [Entitic vol] 84.5 fL Normal 80.0-94.0 [facility] Comment on above: Performed By: #### C BC #### [facility] [address] [place] [address] Dr. Santhosh Francois MONO # 0.4 103/ul Normal 0.3-0.8 [facility] Comment on above: Performed By: #### C BC #### [facility] [address] [place] [address] Dr. Santhosh Francois Monocytes/100 WBC (Bld) 7.7 % Normal 1.7-12.0 [facility] Comment on above: Performed By: #### C BC #### [facility] [address] [place] [address] Dr. Santhosh Francois NEUT # 3.1 103/ul Normal 1.4-6.5 [facility] Comment on above: Performed By: #### C BC #### [facility] [address] [place] [address] Dr. Santhosh Francois Neutrophils/100 WBC (Bld) 54.4 % Normal 43.0-75.0 [facility] Comment on above: Performed By: #### C BC #### [facility] [address] [place] [address] Dr. Santhosh Francois Platelet mean volume (Bld) [Entitic vol] 10.0 fL Normal 9.5-13.5 [facility] Comment on above: Performed By: #### C BC #### [facility] [address] [address] [address] Santhosh Francois PLT 191 103/ul Normal 150-450 [facility] Comment on above: Performed By: #### C BC #### [facility] [address] [place], [place] [address] Dr. Santhosh Francois RBC 4.78 106/ul Normal 4.70-6.10 [facility] Comment on above: Performed By: #### C BC #### [facility] [address] [place], [place] [address] Dr. Santhosh Francois WBC 5.8 103/ul Normal 4.0-11.0 [facility] Comment on above: Performed By: #### C BC #### [facility] [id number] Santhosh Francois MR prostate wo/w conon 09-17 MR prostate wo/w con [facility] [address] MRI Report Signed Patient: Miki Benitez MR#: [id number] : 1955 Acct:[id number] Age/Sex: 65 / M ADM Date: 09/16/21 Loc: MR Room: Type: [facility] Attending Dr: Delma Christian MD Ordering Provider: Delma Christian MD Date of Service: 09/16/21 MR/MR prostate wo/w con: ELEVATED PSA Copies to: Delma Christian MD MRI OF THE PROSTATE GLAND WITHOUT [...] AM COT by: Tomy Garza MD Diplomate, [place] [employer] Report Completed: Sep 17, 2021 10:46:46 AM COT This transmission is proprietary, privileged and confidential. It is intended to be communication only for the use of the addressee; access to this message by anyone else is unaut Transcribed By: 09/17/21 1348 Dictated By: NON STAFF 09/17/21 1046 Signed By: 09/17/21 1349 [facility] Blood Urea Nitrogenon 2020 Urea nitrogen [Mass/Vol] 21 mg/dL Normal 9- [facility] Comment on above: Order Comment: STAT FOR MRI Performed By: #### C REAT, BUN #### [facility] [address] [id number] [facility] Creatinineon 09-03-2021 Creatinine [Mass/Vol] 1.01 mg/dL Normal 0.64-1.27 [facility] Comment on above: Order Comment: STAT FOR MRI Performed By: #### C REAT, BUN #### [address] Creatinine [facility]r [facility]acy 90.06 [facility] Comment on above: Order Comment: STAT FOR MRI Result Comment: PERF ORMED BY: [place] [address] PATHOLOGIST CNA PER DIEM TONNY ZHOU M.D. Performed By: #### C REAT, BUN #### [address] Estimated GFR ( Teresita > 60 [facility] Comment on above: Order Comment: STAT FOR MRI Result Comment: GFR estimated reference range: According to KDOQI guidelines, <60 ml/min/1.73m2 is sufficient to diagnose a patient with chronic kidney disease. Performed By: #### C REAT, BUN #### [address] [id number] [facility] Estimated GFR (Non- Am > 60 [facility] Comment on above: Order Comment: STAT FOR MRI Performed By: #### C REAT, BUN #### [address] [id number] [place] Ironon 04-15-2019 Iron [Mass/Vol] 22 ug/dL Low 59-158 [facility] Comment on above: Performed By: #### C P #### [facility] Lab [address] [place], [place] [id number] Medical Services Manager: Frank Mercado MD #### B12, FE #### [facility] [address] [place] [address] Medical Services Manager: Rainer Araujo MD Vitamin B12on 04-15-2019 Cobalamin (Vitamin B12) [Mass/Vol] 1062 pg/mL Normal 232-[address] [facility] Comment on above: Performed By: #### C P #### [facility] [address] [place], [place] [id number] Medical Services Manager: Frank Mercado MD #### B12, FE #### [address] [place] [address] Medical Services Manager: Rainer Araujo MD Comp Metabolic Profon 2018 Albumin [Mass/Vol] 4.2 g/dL Normal 3.5-5.[address] [facility] Comment on above: Performed By: #### C P #### [address] [place] [id number] ( Medical Services Manager: Frank Mercado MD #### B12, FE #### [address] [place] [address] Medical Services Manager: Rainer Araujo MD Albumin/Globulin [Mass ratio] 1.6 {ratio} Normal 1.0-2.[address] [facility] Comment on above: Performed By: #### C P #### [facility] [address] [place] [address] [place] [address] Medical Services Manager: Frank Mercado MD #### B12, FE #### [address] [place] [address] Medical Services Manager: Rainer Araujo MD Alkaline Phos 120 U/L Normal 40-129 [facility] Comment on above: Performed By: #### C P #### [address] [place], [place] [phone] Medical Services Manager: Frank Mercado MD #### B12, FE #### [address] [place], [place] [id number] Medical Services Manager: Rainer Araujo MD Bilirubin Ql (U) 0.72 mg/dL Normal 0.3-1.2 [facility] Comment on above: Performed By: #### C P #### [facility] [address] [place], [place] [phone] Medical Services Manager: Frank Mercado MD #### B12, FE #### [address] [place], [place] [phone] Medical Services Manager: Rainer Araujo MD Protein [Mass/Vol] 6.8 g/dL Normal 6.4-8.[address] [facility] Comment on above: Performed By: #### C P #### [facility] [address] [place] [address] Medical Services Manager: Frank Mercado MD #### B12, FE #### [address] [place], [place] [phone] Medical Services Manager: Rainer Araujo MD (cont.) [facility] Comment on above: Result Comment: Aver age GFR for 60-69 years old: 85 mL/min/1.73sq m Chronic Kidney Disease: <60 mL/min/1.73sq m Kidney failure: <15 mL/min/1.73sq m eGFR calculated using average adult body mass. Additional eGFR calculator available at: http://www.[employer].com/multiple_crcl_2012.htm Performed By: #### C P #### [facility] [address] [place], [place] [phone] Medical Services Manager: Frank Mercado MD #### B12, FE #### [facility] [address] [place], [place] [phone] Medical Services Manager: Rainer Araujo MD ALT [Catalytic activity/Vol] 29 U/L Normal 5-[address] [facility] Comment on above: Performed By: #### C P #### [facility] [address] [place] [address] Medical Services Manager: Frank Mercado MD #### B12, FE #### [facility] [address] [place] [address] Medical Services Manager: Rainer Araujo MD Anion gap [Moles/Vol] 10 mmol/L Normal [facility] Comment on above: Performed By: #### C P #### [facility] [address] [place], [place] [phone] Medical Services Manager: Frank Mercado MD #### B12, FE #### [address] [place] [address] Medical Services Manager: Rainer Araujo MD AST [Catalytic activity/Vol] 26 U/L Normal <[address] [facility] Comment on above: Performed By: #### C P #### [address] [place] [address] Medical Services Manager: Frank Mercado MD #### B12, FE #### [address] [address] Medical Services Manager: Rainer Araujo MD BUN/CRE Ratio 24 High 9-20 [facility] Comment on above: Performed By: #### C P #### [facility] [address] [place] [address] Medical Services Manager: Frank Mercado MD #### B12, FE #### [facility] [address] [place] [address] Medical Services Manager: Rainer Araujo MD Calcium [Mass/Vol] 8.2 mg/dL Low 8.6-10.[address] [facility] Comment on above: Performed By: #### C P #### [facility] [address] [place], [place] [phone] Medical Services Manager: Frank Mercado MD #### B12, FE #### [address] [address] [place] [address] Medical Services Manager: Rainer Araujo MD Chloride [Moles/Vol] 115 mmol/L High 98-107 [facility] Comment on above: Performed By: #### C P #### [facility] [address] [place], [place] [phone] Medical Services Manager: Frank Mercado MD #### B12, FE #### [address] [address] Medical Services Manager: Rainer Araujo MD CO2 [Moles/Vol] 17 mmol/L Low 20-31 [facility] Comment on above: Performed By: #### C P #### [facility] [address] [place], [place] [phone] Medical Services Manager: Frank Mercado MD #### B12, FE #### [address] [address] Medical Services Manager: Rainer Araujo MD Creatinine [Mass/Vol] 1.11 mg/dL Normal 0.70-1.[address] [facility] Comment on above: Performed By: #### C P #### [facility] [address] [place] [address] [place] [place], [place] [phone] Medical Services Manager: Frank Mercado MD #### B12, FE #### [address] [address] Medical Services Manager: Rainer Araujo MD GFR, Amer >60 Normal >60 [facility] Comment on above: Performed By: #### C P #### [facility] [address] [place], [place] [phone] Medical Services Manager: Frank Mercado MD #### B12, FE #### [address] [address] Medical Services Manager: Rainer Araujo MD GFR,non Amer >60 Normal >60 [facility] Comment on above: Performed By: #### C P #### [facility] [address] [place], [place] [phone] Medical Services Manager: Frank Mercado MD #### B12, FE #### [address] [address] Medical Services Manager: Rainer Araujo MD Glucose [Mass/Vol] 103 mg/dL High 70-[address] [facility] Comment on above: Performed By: #### C P #### [facility] [address] [place] [address] Medical Services Manager: Frank Mercado MD #### B12, FE #### [address] [address] Medical Services Manager: Rainer Araujo MD Potassium [Moles/Vol] 4.1 mmol/L Normal 3.7-5.[address] [facility] Comment on above: Performed By: #### C P #### [facility] [address] [place] [address] Medical Services Manager: Frank Mercado MD #### B12, FE #### [address] [address] Medical Services Manager: Rainer Araujo MD Sodium [Moles/Vol] 142 mmol/L Normal 135-[address] [facility] Comment on above: Performed By: #### C P #### [facility] [address] [place] [address] Medical Services Manager: Frank Mercado MD #### B12, FE #### [address] [address] Medical Services Manager: Rainer Araujo MD Staging: Normal [facility] Comment on above: Result Comment: Stag e 1: Some kidney damage normal GFR Stage 2: Mild kidney damage GFR 60-89 Stage 3: Moderate kidney damage GFR 30-59 Stage 4: Severe kidney damage GFR 15-29 Stage 5: Severe kidney damage GFR <15 ESRD - chronic treatment by dialysis or transplant Performed By: #### C P #### [facility] [address] [place] [address] Medical Services Manager: Frank Mercado MD #### B12, FE #### [facility] [address] [place], [place] [phone] Medical Services Manager: Rainer Araujo MD Urea nitrogen [Mass/Vol] 27 mg/dL High 8- [facility] Comment on above: Performed By: #### C P #### [facility] [address] [place] [address] Medical Services Manager: Frank Mercado MD #### B12, FE #### [facility] [address] [place], [place] [phone] Medical Services Manager: Rainer Araujo MD Vital Signs Date Time Vital Sign Value Performing Clinician Facility 11-29-2024 13:49-0500 Body height 180.3 cm Vijay Ng MD Work Phone: [facility] 11-29-2024 13:49-0500 Body mass index (BMI) [Ratio] 32.5 kg/m2 Vijay Ng MD Work Phone: [facility] 11-29-2024 13:49-0500 Body weight 105.69 kg Vijay Ng MD Work Phone: [facility] 11-29-2024 13:49-0500 Heart rate 70 /min Vijay Ng MD Work Phone: [facility] 11-29-2024 13:49-0500 Respiratory rate 16 /min Vijay Ng MD Work Phone: [facility] 11-29-2024 13:49-0500 SaO2% (BldA) [Mass fraction] 94 % Vijay Ng MD Work Phone: [facility] 10-24-2024 16:02-0500 Diastolic blood pressure 60 mm[Hg] Delma [facility] 10-24-2024 16:02-0500 Heart rate 56 /min Delma [facility] 10-24-2024 16:02-0500 Respiratory rate 16 /min Delma [facility] 10-24-2024 16:02-0500 Systolic blood pressure 94 mm[Hg] Delma [facility] 08-18-2024 16:00-0500 Body height 177.8 cm Park Yoder [employer] Work Phone: [facility] 08-18-2024 16:00-0500 Body mass index (BMI) [Ratio] 33.69 kg/m2 Park Yoder [employer] Work Phone: [facility] 08-18-2024 16:00-0500 Body temperature 98.1 [degF] Park Yoder [employer] Work Phone: [facility] 08-18-2024 16:00-0500 Body weight 106.5 kg Park Yoder [employer] Work Phone: [facility] 08-18-2024 16:00-0500 Diastolic blood pressure 78 mm[Hg] Park Yoder [employer] Work Phone: [facility] 08-18-2024 16:00-0500 Heart rate 71 /min Park Yoder [employer] Work Phone: [facility] 08-18-2024 16:00-0500 Respiratory rate 21 /min Park Yoder [employer] Work Phone: [facility] 08-18-2024 16:00-0500 SaO2% (BldA) [Mass fraction] 97 % Park Yoder [employer] Work Phone: [facility] 08-18-2024 16:00-0500 Systolic blood pressure 122 mm[Hg] Parkvero Terrazasholz [employer] Work Phone: [facility] 05-25-2024 15:52-0400 Body height 177.8 cm Park Tatianahholz [employer] Work Phone: [facility] 05-25-2024 15:52-0400 Body mass index (BMI) [Ratio] 33.29 kg/m2 Park Mkholz [employer] Work Phone: [facility] 05-25-2024 15:52-0400 Body temperature 97.3 [degF] Park Tatianahholz [employer] Work Phone: [facility] 05-25-2024 15:52-0400 Body weight 105.23 kg Park Mkholz [employer] Work Phone: [facility] 05-25-2024 15:52-0400 Diastolic blood pressure 52 mm[Hg] Park Mkholz [employer] Work Phone: [facility] 05-25-2024 15:52-0400 Heart rate 67 /min Park Aichholz [employer] Work Phone: [facility] 05-25-2024 15:52-0400 Respiratory rate 18 /min Park Mkholz [employer] Work Phone: [facility] 05-25-2024 15:52-0400 SaO2% (BldA) [Mass fraction] 97 % Park Mkholz [employer] Work Phone: [facility] 05-25-2024 15:52-0400 Systolic blood pressure 90 mm[Hg] Park Aichholz [employer] Work Phone: [facility] 04-27-2024 07:57-0400 Body mass index (BMI) [Ratio] 32.36 kg/m2 Yisel Mitchell MD Work Phone: [facility] 04-27-2024 07:57-0400 Body weight 105.23 kg Yisel Mitchell MD Work Phone: [facility] 04-27-2024 07:57-0400 Diastolic blood pressure 60 mm[Hg] Yisel Mitchell MD Work Phone: [facility] 04-27-2024 07:57-0400 Heart rate 64 /min Yisel Mitchell MD Work Phone: [facility] 04-27-2024 07:57-0400 Respiratory rate 14 /min Yisel Mitchell MD Work Phone: [facility] 04-27-2024 07:57-0400 SaO2% (BldA) [Mass fraction] 94 % Yisel Mitchell MD Work Phone: [facility] 04-27-2024 07:57-0400 Systolic blood pressure 98 mm[Hg] Yisel Mitchell MD Work Phone: [facility] [facility] 11-04-2023 15:54-0500 Body height 177.8 cm Park Paresh GARMENT LOOPER Work Phone: [facility] 11-04-2023 15:54-0500 Body mass index (BMI) [Ratio] 34.47 kg/m2 Park Paresh GARMENT LOOPER Work Phone: [facility] 11-04-2023 15:54-0500 Body temperature 97.11 [degF] Park Paresh GARMENT LOOPER Work Phone: [facility] 11-04-2023 15:54-0500 Body weight 108.95 kg Park Mikez GARMENT LOOPER Work Phone: [facility] 11-04-2023 15:54-0500 Diastolic blood pressure 78 mm[Hg] Park Paresh GARMENT LOOPER Work Phone: [facility] 11-04-2023 15:54-0500 Heart rate 66 /min Park Paresh GARMENT LOOPER Work Phone: [facility] 11-04-2023 15:54-0500 Respiratory rate 18 /min Park Paresh GARMENT LOOPER Work Phone: [facility] 11-04-2023 15:54-0500 SaO2% (BldA) [Mass fraction] 97 % Park Paresh GARMENT LOOPER Work Phone: [facility] 11-04-2023 15:54-0500 Systolic blood pressure 118 mm[Hg] Park Paresh GARMENT LOOPER Work Phone: [facility] 10-19-2023 15:01-0500 Blood Pressure Location Delma CHRISTIAN [facility] 10-19-2023 15:01-0500 Diastolic blood pressure 60 mm[Hg] Delma CHRISTIAN [facility] 10-19-2023 15:01-0500 Heart rate 64 /min Delma CHRISTIAN [facility] 10-19-2023 15:01-0500 Respiratory rate 16 /min Delma CHRISTIAN [facility] 10-19-2023 15:01-0500 Systolic blood pressure 109 mm[Hg] Delma CHRISTIAN [facility] 04-13-2023 15:59-0400 Blood Pressure Location Delma CHRISTIAN [facility] 04-13-2023 15:59-0400 Diastolic blood pressure 80 mm[Hg] Delma CHRISTIAN [facility] 04-13-2023 15:59-0400 Heart rate 68 /min Delma CHRISTIAN [facility] 04-13-2023 15:59-0400 Respiratory rate 16 /min Delma CHRISTIAN [facility] 04-13-2023 15:59-0400 Systolic blood pressure 130 mm[Hg] Delma CHRISTIAN [facility] 11-04-2022 14:37-0500 Blood Pressure Location Delma CHRISTIAN [facility] 11-04-2022 14:37-0500 Diastolic blood pressure 69 mm[Hg] Delma CHRISTIAN [facility] 11-04-2022 14:37-0500 Heart rate 68 /min Delma CHRISTIAN [facility] 11-04-2022 14:37-0500 Systolic blood pressure 118 mm[Hg] Delma CHRISTIAN [facility] 05-19-2022 15:59-0400 Blood Pressure Location Delma CHRISTIAN [facility] 05-19-2022 15:59-0400 Diastolic blood pressure 66 mm[Hg] Delma CHRISTIAN [facility] 05-19-2022 15:59-0400 Heart rate 59 /min Delma CHRISTIAN [facility] 05-19-2022 15:59-0400 Respiratory rate 16 /min Delma CHRISTIAN [facility] 05-19-2022 15:59-0400 Systolic blood pressure 117 mm[Hg] Delma CHRISTIAN [facility] Encounters Encounter Date Encounter Type Care Provider Facility Start: 10-23-2025 ambulatory Delma Muller ty:JAYASHREE Estrada Start: 05-10-2025 End: 05-10-2025 Refill Shanel Bonilla PANTOGRAPH TRANSFERRER-[employer]UEST RELATIONS OFFICER Work Phone: [facility] Comment on above: Med Refill Start: 05-02-2025 End: 05-03-2025 Refill Sandi Middleton PANTOGRAPH TRANSFERRER-[employer]UEST RELATIONS OFFICER Work Phone: [facility] Comment on above: Med Refill Start: 04-28-2025 End: 04-28-2025 Orders Only [facility] Comment on above: Nonischemic cardiomy opathy (CMS-HCC) (Primary Dx); Chronic systolic heart failure (CMS-HCC) Start: 04-11-2025 End: 04-11-2025 Clinisync Result Encounter Park Yoder GARMENT LOOPER Work Phone: [facility] Unsolicited Start: 04-11-2025 End: 04-11-2025 Clinisync Result Encounter Park Paresh GARMENT LOOPER Work Phone: [facility] Unsolicited Start: 04-11-2025 End: 04-11-2025 Refill Park Paresh GARMENT LOOPER Work Phone: [facility] Comment on above: UTI (urinary tract i nfection), uncomplicated (Primary Dx) Start: 11-29-2024 End: 11-29-2024 Bamboo flowsheet Vijay Ng MD Work Phone: [facility] Start: 11-29-2024 End: 11-29-2024 Bamboo flowsheet Vijay Ng MD Work Phone: [facility] Start: 11-29-2024 End: 11-29-2024 Office outpatient visit 25 minutes Vijay Ng MD Work Phone: [facility] Comment on above: Hypocalcemia (Primar y Dx); Vitamin D deficiency; Secondary hyperparathyroidism (CMS/HCC) Start: 11-29-2024 End: 11-29-2024 ambulatory VIJAY NG Not Available Start: 10-24-2024 End: 10-24-2024 ambulatory Delma CHRISTIAN Facility:[facility] Start: 10-24-2024 End: 10-24-2024 Patient encounter procedure Delma CHRISTIAN [facility] Start: 10-21-2024 End: 10-21-2024 Clinisync Result Encounter Generic External Data Provider [facility] Unsolicited Start: 10-21-2024 End: 10-21-2024 Clinisync Result Encounter Generic External Data Provider [facility] Unsolicited Start: 08-18-2024 End: 08-18-2024 ambulatory PARK YODER Not Available Start: 08-18-2024 End: 08-18-2024 Office outpatient visit 15 minutes Park Yoder GARMENT LOOPER Work Phone: [facility] Comment on above: Primary hypertension (CMS/HCC) (Primary Dx); Chronic systolic heart failure (CMS/HCC); H/O bariatric surgery; BMI 37.0-37.9, adult; Elevated liver function tests; Vitamin D deficiency; Hyperparathyroidism, unspecified (CMS/HCC); Iron deficiency anemia following bariatric surgery; Hypocalcemia Start: 08-18-2024 End: 08-18-2024 Bamboo flowsheet Park Yoder GARMENT LOOPER Work Phone: [facility] Start: 08-18-2024 End: 08-18-2024 Bamboo flowsheet Park Yoder GARMENT LOOPER Work Phone: [facility] Start: 08-17-2024 End: 08-17-2024 Clinisync Result Encounter Park Yoder NP Work Phone: [facility] Unsolicited Start: 08-17-2024 End: 08-17-2024 Clinisync Result Encounter Park Yoder GARMENT LOOPER Work Phone: [facility] Unsolicited Start: 07-22-2024 End: 07-22-2024 ambulatory VIJAY NG Not Available Start: 06-07-2024 End: 06-07-2024 Clinisync Result Encounter Generic External Data Provider [facility] Unsolicited Start: 06-07-2024 End: 06-07-2024 Clinisync Result Encounter Generic External Data Provider [facility] Unsolicited Start: 06-07-2024 End: 06-08-2024 Telephone encounter Makenzie Roberson RN [facility] Comment on above: Lipitor and fasting labs Start: 05-25-2024 End: 05-25-2024 ambulatory PARK YODER Not Available Start: 05-25-2024 End: 05-25-2024 Office outpatient visit 25 minutes Park Yoder GARMENT LOOPER Work Phone: [facility] Comment on above: Weakness (Primary Dx ); Thrombocytopenia, unspecified (CMS/HCC); Hyperparathyroidism, unspecified (CMS/HCC); Other ventricular tachycardia (CMS/HCC); Elevated liver function tests; Iron deficiency anemia following bariatric surgery; Primary hypertension (CMS/HCC); Elevated parathyroid hormone; Vitamin D deficiency Start: 05-25-2024 End: 05-25-2024 Bamboo flowsheet Park Yoder GARMENT LOOPER Work Phone: [facility] Start: 05-25-2024 End: 05-25-2024 Bamboo flowsheet Park Yoder GARMENT LOOPER Work Phone: [facility] Start: 05-20-2024 End: 05-20-2024 Refill Makenzie Roberson RN [facility] Comment on above: Med Refill Start: 05-18-2024 End: 05-19-2024 Refill Karime Mcallister RN [facility] Comment on above: Med Refill Start: 05-06-2024 End: 05-13-2024 Refill Albino Morris APRN-GUEST RELATIONS OFFICER Work Phone: [facility] Comment on above: Med Refill Start: 04-27-2024 End: 04-27-2024 Office outpatient visit 15 minutes Yisel Mitchell MD Work Phone: [facility] Comment on above: Nonischemic cardiomy opathy (CMS-HCC) (Primary Dx); Chronic systolic heart failure (CMS-HCC); Nonsustained ventricular tachycardia (CMS-HCC); Status post ablation of ventricular arrhythmia Start: 04-27-2024 End: 04-27-2024 ambulatory YISEL MITCHELL [facility] Start: 04-26-2024 End: 04-26-2024 Telephone encounter Ifrah Tapia C[facility] Start: 04-06-2024 End: 04-06-2024 ambulatory LITO C WINDNAGEL Not Available Start: 03-30-2024 End: 03-30-2024 ambulatory PARK AICHHOLZ Not Available Start: 02-18-2024 End: 02-18-2024 ambulatory PARK AICHHOLZ Not Available Start: 02-15-2024 End: 02-16-2024 Refill Violeta Peacock RN [facility] Comment on above: Med Refill Start: 02-09-2024 End: 02-10-2024 Refill Berta Nieves RN [facility] Comment on above: Med Refill Start: 11-04-2023 End: 11-04-2023 Office outpatient visit 15 minutes Park Yoder GARMENT LOOPER Work Phone: [facility] Comment on above: 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); BMI 37.0-37.9, adult; Nonischemic cardiomyopathy (CMS/HCC); Primary hypertension (CMS/HCC); Chronic systolic heart failure (CMS/HCC); H/O bariatric surgery; Mixed hyperlipidemia (CMS/HCC) Start: 11-04-2023 Bamboo flowsheet Park Yoder GARMENT LOOPER Work Phone: [facility] Start: 11-04-2023 Bamboo flowsheet Park Yoder GARMENT LOOPER Work Phone: [facility] Start: 10-19-2023 End: 10-19-2023 Patient encounter procedure [facility] Start: 04-13-2023 End: 04-13-2023 Patient encounter procedure eDlma CHRISTIAN [facility] Start: 03-18-2023 End: 03-18-2023 Patient encounter procedure Delma CHRISTIAN [facility] Start: 11-21-2022 End: 11-22-2022 ambulatory GUEST RELATIONS OFFICER PARK YODER Facility:[facility] Start: 11-04-2022 End: 11-04-2022 Patient encounter procedure Delma CHRISTIAN [facility] Start: 09-12-2022 End: 09-12-2022 ambulatory DEANNE OBRIEN . Facility:[facility] Start: 05-19-2022 End: 05-19-2022 Patient encounter procedure Delma CHRISTIAN [facility] Start: 05-16-2022 End: 05-17-[address] DOCTOR HOWE Facility:[facility] Start: 04-30-2022 End: 04-30-[address] CASSIDY DILLON Facility:[facility] Start: 03-07-2022 End: 03-08-2022 ambulatory LILIANA YODER Facility:[facility] Start: 01-01-2022 End: 01-01-2022 Patient encounter procedure Ary COSTELLO General Surgery [facility]/Marie Estrada Start: 12-18-2021 End: 12-18-[address] ARY COSTELLO . Facility:[facility] Start: 12-14-2021 ambulatory LILIANA YODER Facil ity:[facility] Start: 12-03-2021 End: 12-04-2021 ambulatory GUEST RELATIONS OFFICER PARK YODER Facility: Start: 11-12-2021 Patient encounter status Berta Nieves RN [facility] [facility] Work Phone: Start: 04-14-2019 End: 04-15-2019 Patient encounter procedure PARK YODER [facility] Start: 01-28-2018 End: 01-29-2018 Ambulatory DEFAULT PHYSICIAN Facility:[facility] Procedures Date Procedure Procedure Detail Performing Clinician Start: 04-11-2025 [facility] CMP (CMP) (FOR REMOTE [facility] USE) Park Tatianagalindoquiana GARMENT LOOPER Work Phone: Start: 10-21-2024 MHPT PSA, DIAGNOSTIC Generic External Data Provider Start: 08-17-2024 ALL CBC WITH AUTO DIFF Park Yoder GARMENT LOOPER Work Phone: Start: 06-07-2024 ALL LIPID PROFILE (FASTING) Generic Exte rnal Data Provider Start: 04-27-2024 Ecg routine ecg w/least 12 lds w/i&r Yisel Mitchell MD Work Phone: Start: 04-27-2024 Follow-up visit Follow-up YISEL MITCHELL Start: 11-21-[address] DELMA CHRISTIAN . Comment on above: Performed By: #### PSAD #### [facility] [address] [place] [address] Dr. Santhosh Francois Start: 11-04-2022 Cystoscopy Delma CHRISTIAN Start: 05-16-[address] DELMA CHRISTIAN . Comment on above: Performed By: #### PSAD #### [facility] [address] [place] [address] Dr. Santhosh Francois Start: 12-18-2021 Colonoscopy Park Yoder NP Work Phone: Start: 12-18-2021 Colonoscopy Ary COSTELLO Start: 12-18-2021 Esophagogastroduodenoscopy Ary COSTELLO Start: 11-14-2021 MRI-US fusion guided transrectal biopsy [...] above: x3 Repair of umbilical hernia Guru COSTELLO Plan of Treatment Date Care Activity Detail Author Start: 06-16-2030 DTaP,Tdap and Td Vaccines (2 - Tdap) DTaP,Tdap and Td Vaccines (2 - Tdap) [facility] Start: 06-15-2025 End: 06-15-2025 Patient encounter procedure 06/15/2025 2:15 PM EDT Office Visit [facility] [address] [place] [address] Angela Barney PA-C [address] [place] [address] Jorge Storm MD [address] [place], [place] [id number] [facility] Start: 06-07-2025 End: 06-07-2025 Lipid 1996 panel - Serum or Plasma Lipid profile Lab Routine Mixed hyperlipidemia Expected: 06/07/2025 (Approximate), Expires: 06/07/2025 [facility] Work Phone: Comment on above: Expected: 06/07/2025 (Approximate), Expi res: 06/07/2025 Start: 05-29-2025 Influenza vaccination [facility] Start: 05-23-2025 End: 05-23-2025 Patient encounter procedure 05/23/2025 2:00 PM EDT Office Visit [facility] [address] [place] [id number] Vijay Ng MD [address] [place] [address] [facility] Start: 04-28-2025 End: 04-28-2026 Echo complete W/O contrast Echo complete W/O contrast Echocardiography Routine Nonischemic cardiomyopathy (CMS-HCC) Chronic systolic heart failure (CMS-HCC) Expected: 04/28/2025, Expires: 04/28/2026 [facility] Work Phone: Comment on above: Expected: 04/28/2025, Expires: Start: 04-27-2025 Adult BMI Screening Adult BMI Screening [facility] Start: 04-27-2025 Tobacco Screening Tobacco Screening [facility] Start: 02-13-2025 End: 02-13-2025 Patient encounter procedure 02/13/2025 3:40 PM EDT Office Visit [facility] [address] [place] [id number] Park Yoder NP [address] [place] [address] [facility] Start: 11-29-2024 End: 11-29-2025 25-hydroxyvitamin D3 [Mass/volume] in Serum or Plasma Vitamin D 25 hydroxy Total Lab Routine Vitamin D deficiency Expected: 11/29/2024 (Approximate), Expires: 11/29/2025 [facility] Comment on above: Expected: 11/29/2024 (Approximate), Expi res: 11/29/2025 Start: 11-29-2024 End: 11-29-2025 Magnesium [Mass/volume] in Serum or Plasma Magnesium Lab Routine Hypocalcemia Expected: 11/29/2024 (Approximate), Expires: 11/29/2025 [facility] Work Phone: Comment on above: Expected: 11/29/2024 (Approximate), Expi res: 11/29/2025 Start: 11-29-2024 End: 11-29-2025 Parathyrin.intact [Mass/volume] in Serum or Plasma PTH, intact Lab Routine Secondary hyperparathyroidism (CMS/HCC) Expected: 11/29/2024 (Approximate), Expires: 11/29/2025 [facility] Comment on above: Expected: 11/29/2024 (Approximate), Expi res: 11/29/2025 Start: 11-29-2024 End: 11-29-2025 Renal function panel Renal function panel Lab Routine Hypocalcemia Expected: 11/29/2024 (Approximate), Expires: 11/29/2025 [facility] Comment on above: Expected: 11/29/2024 (Approximate), Expi res: 11/29/2025 Start: 11-29-2024 End: 11-29-2024 Patient encounter procedure [facility] Comment on above: Arrived Start: 11-18-2024 End: 08-18-2025 25-hydroxyvitamin D3 [Mass/volume] in Serum or Plasma Vitamin D 25 hydroxy Lab Routine H/O bariatric surgery Vitamin D deficiency Hyperparathyroidism, unspecified (CMS/HCC) Expected: 11/18/2024 (Approximate), Expires: 08/18/2025 [facility] Comment on above: Expected: 11/18/2024 (Approximate), Expi res: 08/18/2025 Start: 11-18-2024 End: 08-18-2025 CBC W Auto Differential panel - Blood CBC and differential Lab Routine Iron deficiency anemia following bariatric surgery Expected: 11/18/2024 (Approximate), Expires: 08/18/2025 [facility] Work Phone: Comment on above: Expected: 11/18/2024 (Approximate), Expi res: 08/18/2025 Start: 11-18-2024 End: 08-18-2025 Cobalamin (Vitamin B12) [Mass/volume] in Serum or Plasma Vitamin B12 Lab Routine H/O bariatric surgery Expected: 11/18/2024 (Approximate), Expires: 08/18/2025 [facility] Comment on above: Expected: 11/18/2024 (Approximate), Expi res: 08/18/2025 Start: 11-18-2024 End: 08-18-2025 Comprehensive metabolic 2000 panel - Serum or Plasma Comprehensive metabolic panel Lab Routine Hyperparathyroidism, unspecified (CMS/HCC) Expected: 11/18/2024 (Approximate), Expires: 08/18/2025 [facility] Comment on above: Expected: 11/18/2024 (Approximate), Expi res: 08/18/2025 Start: 11-18-2024 End: 08-18-2025 Iron + transferrin + TIBC Iron + transferrin + TIBC Lab Routine Iron deficiency anemia following bariatric surgery Expected: 11/18/2024 (Approximate), Expires: 08/18/2025 [facility] Comment on above: Expected: 11/18/2024 (Approximate), Expi res: 08/18/2025 Start: 11-18-2024 End: 08-18-2025 Lipid 1996 panel - Serum or Plasma Lipid panel Lab Routine Chronic systolic heart failure (CMS/HCC) Expected: 11/18/2024 (Approximate), Expires: 08/18/2025 [facility] Comment on above: Expected: 11/18/2024 (Approximate), Expi res: 08/18/2025 Start: 11-18-2024 End: 08-18-2025 Microalbumin/Creatinin e panel in random Urine Microalbumin / creatinine, urine ratio Lab Routine Primary hypertension (CMS/HCC) Expected: 11/18/2024 (Approximate), Expires: 08/18/2025 [facility] Comment on above: Expected: 11/18/2024 (Approximate), Expi res: 08/18/2025 Start: 11-18-2024 End: 08-18-2025 Parathyrin.intact [Mass/volume] in Serum or Plasma PTH, intact Lab Routine Hyperparathyroidism, unspecified ([facility]/HCC) Expected: 11/18/2024 (Approximate), Expires: 08/18/2025 [facility] Comment on above: Expected: 11/18/2024 (Approximate), Expi res: 08/18/2025 Start: 11-18-2024 End: 08-18-2025 Urinalysis complete panel - Urine Urinalysis with reflex microscopic (clean catch) Lab Routine Primary hypertension ([facility]) Expected: 11/18/2024 (Approximate), Expires: 08/18/2025 [facility] Comment on above: Expected: 11/18/2024 (Approximate), Expi res: 08/18/2025 Start: 08-18-2024 End: 08-18-2024 Patient encounter procedure 08/18/2024 3:40 PM EST Office Visit [facility] [address] [place] [address] Park Yoder NP [address] [place] [address] [facility] Start: 07-28-2024 Influenza vaccination Influenza Vaccine (#1) [facility] Comment on above: Postponed from 05/29/2024 (Patient Does Not Have Time) Start: 06-02-2024 End: 06-02-2024 Patient encounter procedure 06/02/2024 8:40 AM EDT Office Visit [facility] [place] [address] [place] [address] Lito Sutton, GARMENT LOOPER [address] [place], [place] [id number] [facility] [address] Start: 05-29-2024 COVID-19 Vaccine () COVID-19 Vaccine () [facility] Start: 05-29-2024 COVID-19 Vaccine ( season) COVID-19 Vaccine ( season) [facility] Start: 05-29-2024 Influenza vaccination [facility] Start: 05-25-2024 End: 05-25-2025 CBC W Auto Differential panel - Blood CBC and differential Lab Routine Thrombocytopenia, unspecified (CMS/HCC) Iron deficiency anemia following bariatric surgery Expected: 05/25/2024 (Approximate), Expires: 05/25/2025 [facility] Comment on above: Expected: 05/25/2024 (Approximate), Expi res: 05/25/2025 Start: 05-25-2024 End: 05-25-2025 Ferritin [Mass/volume] in Serum or Plasma Ferritin Lab Routine Thrombocytopenia, unspecified (CMS/HCC) Iron deficiency anemia following bariatric surgery Expected: 05/25/2024 (Approximate), Expires: 05/25/2025 [facility] Comment on above: Expected: 05/25/2024 (Approximate), Expi res: 05/25/2025 Start: 05-25-2024 End: 05-25-2025 Gamma glutamyl transferase [Enzymatic activity/volume] in Serum or Plasma Gamma GT Lab Routine Elevated liver function tests Expected: 05/25/2024 (Approximate), Expires: 05/25/2025 [facility] Comment on above: Expected: 05/25/2024 (Approximate), Expi res: 05/25/2025 Start: 05-25-2024 End: 05-25-2025 Hepatic function 2000 panel - Serum or Plasma Hepatic function panel Lab Routine Elevated liver function tests Expected: 05/25/2024 (Approximate), Expires: 05/25/2025 [facility] Work Phone: Comment on above: Expected: 05/25/2024 (Approximate), Expi res: 05/25/2025 Start: 05-25-2024 End: 05-25-2025 Iron and Iron binding capacity panel - Serum or Plasma Iron level Lab Routine Thrombocytopenia, unspecified (CMS/HCC) Iron deficiency anemia following bariatric surgery Expected: 05/25/2024 (Approximate), Expires: 05/25/2025 [facility] Comment on above: Expected: 05/25/2024 (Approximate), Expi res: 05/25/2025 Start: 04-27-2024 End: 04-27-2025 Echo complete W/O contrast Echo complete W/O contrast Echocardiography Routine Nonischemic cardiomyopathy (CMS-HCC) Expected: 04/27/2024, Expires: 04/27/2025 [facility] Work [facility]: Comment on above: Expected: 04/27/2024, Expires: Start: 04-27-2024 End: 04-27-2024 Patient encounter procedure 04/27/2024 8:30 AM EDT Office Visit [facility] [address] [place] [address] Yisel Mitchell MD [address] [place] [address] [facility] Start: 12-28-2023 Screening for malignant neoplasm of colon [facility] Start: 10-15-2023 Adult BMI Screening Adult BMI Screening [facility] Start: 10-15-2023 Tobacco Screening Tobacco Screening [facility] Start: 05-29-2023 COVID-19 Vaccine ( season) COVID-19 Vaccine ( season) [facility] Start: 05-29-2023 Influenza vaccination Influenza Vaccine (#1) [facility] Start: 2022 Abdominal aortic aneurysm screening Abdominal Aortic Aneurysm (AAA) Screen [facility] Start: 2022 Fall Risk Screening Fall Risk Screening [facility] Start: 11-28-2007 Administration of varicella zoster vaccine Zoster (Shingles) Vaccine (1 of 2) [facility] Start: 1969 Depression Screening Depression Screening [facility] Start: 11-28-1963 Pneumococcal Vaccine: 65+ Years (1 - PCV) Pneumococcal Vaccine: 65+ Years (1 - PCV) [facility] Start: 1957 Medicare Annual Wellness Visit Medicare Annual Wellness Visit [facility] Start: 1955 Screening for malignant neoplasm of colon [facility] End: 05-18-2025 Lipid panel Lipid panel Lab Routine Mixed hyperlipidemia 1 Occurrences starting 05/19/2024 until 05/18/2025 [facility] Work Phone: Comment on above: 1 Occurrences starting 05/19/2024 until 05/18/2025 POCT EKG POCT EKG ECG Rou linda Nonischemic cardiomyopathy (CMS-HCC) Chronic systolic heart failure (CMS-HCC) Nonsustained ventricular tachycardia ([facility]-HCC) Status post ablation of ventricular arrhythmia 04/27/2024 [facility] Immunizations Immunization Date Immunization Notes Care Provider [facility] 08-03-2024 Influenza, High-dose Seasonal, Quadrivalent, Preservative Free Park Aichholz GARMENT LOOPER Work Phone: [facility] 08-03-2024 influenza virus vaccine, unspecified formulation Park Aichholz GARMENT LOOPER Work Phone: [facility] 08-12-2023 Influenza, High-dose Seasonal, Quadrivalent, Preservative Free Park Aichholz GARMENT LOOPER Work Phone: [facility] 08-12-2023 influenza virus vaccine, unspecified formulation Ifrah Tapia [facility] 07-29-2021 influenza virus vaccine, unspecified formulation Ary COSTELLO [facility] 02-13-2021 SARS-CoV-2 (COVID-19 ) mRNA BNT-162b2 vax Delma CHRISTIAN [facility] 01-23-2021 SARS-CoV-2 (COVID-19 ) mRNA BNT-162b2 vax Delma CHRISTIAN [facility] 09-28-2020 SARS-CoV-2 (COVID-19 ) mRNA BNT-162b2 vax Ary COSTELLO [facility] 07-02-2020 influenza virus vaccine, unspecified formulation Ary COSTELLO [facility] 06-16-2020 diphtheria, tetanus toxoids and pertussis vaccine Park Paresh GARMENT LOOPER Work Phone: [facility] Payers Date Payer Category Payer Unknown [id number] 2020 Unknown [id number] 2020 Blue Cross Blue Shield [id number] [id number] 2020 Unknown 1959 Unknown [id number] 1957 Unknown [id number] 2.16.84 0.1.458066.3.579.2.593 1957 Unknown [id number] 2.16.84 0.1.650822.3.579.2.593 1957 Unknown [id number] 2.16.84 0.1.985649.3.579.2.593 1957 Unknown [id number] 2.16.84 0.1.932879.3.579.2.593 1957 Unknown [id number] 2.16.84 0.1.368573.3.579.2.593 1957 Unknown [id number] 2.16.84 0.1.806405.3.579.2.593 1957 Unknown [id number] 2.16.84 0.1.994384.3.579.2.593 1957 Unknown [id number] 2.16.84 0.1.732992.3.579.2.593 1957 Unknown [id number] 2.16.84 0.1.815805.3.579.2.593 1957 Unknown [id number] 2.16.8 40.1.405534.3.579.2.1286 1957 Unknown [id number] 2.16.8 40.1.226745.3.579.2.727 1957 Unknown [id number] 2.16.8 40.1.148066.3.579.2.727 1957 Unknown [id number] 2.16.84 0.1.801619.3.579.2.1259 1957 Unknown [id number] 2.16.84 0.1.917302.3.579.2.9 1957 Unknown [id number] 2.16.84 0.1.668661.3.579.2.1259 1957 Unknown [id number] 2.16.84 0.1.105909.3.579.2.1259 1957 Unknown [id number] 2.16.84 0.1.761990.3.579.2.9 1957 Unknown [id number] 2.16.84 0.1.799251.3.579.2.9 1957 Unknown [id number] 2.16.84 0.1.751974.3.579.2.1259 1957 Unknown [id number] 2.16.84 0.1.805720.3.579.2.1259 1957 Unknown [id number] 2.16.84 0.1.787283.3.579.2.1259 Social History Date Type Detail Facility Start: 12-06-2021 End: 10-26-2023 Tobacco smoking status Never smoked tobacco (finding) [facility] Tobacco smoking status Never [facility] Start: 10-16-2020 End: 10-26-2023 Sex Assigned At Male [facility] Start: 10-19-2023 Tobacco smoking status Light t obacco smoker (finding) [facility] Start: 10-16-2020 End: 10-26-2023 History of Social function [facility] Start: 1955 Sex Assigned At Not on file [facility] Start: 11-04-2023 End: 11-29-2024 Alcohol intake Ex-drinker (finding) [facility] Start: 11-04-2023 Alcohol Comment caffine: 3 cups lucretia y [facility] Start: 09-16-2024 Tobacco smoking stat [facility] Tobacco smoking consumption unknown [facility] Start: 10-24-2024 Tobacco smoking status Smokes tobacco daily (finding) [facility] Start: 10-15-2022 Tobacco smoking status Ex-smoker (fi nding) [facility] History of tobacco use Current smoker [facility] History of tobacco use Cigar Smoker [facility] Start: 10-15-2022 End: 11-29-2024 Tobacco use and exposure Smokeless tobacco non-user [facility] Start: 10-15-2022 End: 04-27-2024 Alcoholic beverage intake Current drinker of alcohol (finding) [facility] Start: 10-15-2022 Tobacco Comment smokes a cigar occasionally [facility] Start: 04-06-2017 Alcohol Comment 1 drink per day [facility] Start: 11-29-2024 Tobacco smoking stat [facility] Occasional tobacco smoker [facility] Start: 05-03-2015 Sex Male (finding) [facility] Functional Status Date Assessment Result Facility 10-24-2024 Functional Status N/A [facility] 10-19-2023 Functional Status Yes [facility] 04-13-2023 Functional Status N/A [facility] 11-04-2022 Functional Status N/A [facility] 05-19-2022 Functional Status N/A [facility] Clinical Notes 12-18-2021 to 05-10-2025 Telephone Encounter - Kristine Caceres RN - 05/10/2025 5:41 AM EDTTelephone Encounter - Kristine Caceres RN - 05/10/2025 5:41 AM Mat Peacock RN - 04/28/2025 9:00 AM EDTPatient Instructions Note Date & Type Note Facility 05-10-2025 Miscellaneous Notes Ov-04/27/24 Next ov-06/15/25 documented in this encounter [facility] 05-10-2025 Telephone encounter Note Ov-04/27/24 Next ov-06/15/25 [facility] 04-28-2025 History of Present illness Narrative Pt echo order . New order created and faxed to [facility] so pt could have done documented in this encounter [facility] 11-29-2024 History of Present illness Narrative Miki Benitez is a 69 y.o. male Vijay Ng MD presents with chief complaint of Abnormal [...] months (around 06/01/2025). documented in this encounter [facility] 10-24-2024 Hospital Discharge instructions [...] Follow these instructions at home: Medicines Take ahho-nmm-qsistxe and prescription medicines only as told by [...] important. Where to find more information National Homeland of Diabetes and Digestive and Kidney Diseases: [...] depends on the type of prostatitis. Take tzyv-quk-cwissey and prescription medicines only as told by [...] provider. Document Revised: 07/30/2023 Document Reviewed: 07/30/2023 [employer] Patient Education 2023 [employer]. Follow Up Care 10/19/2023 15:47:06 With:ANAHI MCDONALD, Delma Ross, URL Address: [facility] [address], [place] [address] [phone] When: Unknown Comments:1 yr w/ PSA and KUB [facility] 10-24-2024 Note Patient Education Infectious Disease [...] these instructions at home: Medicines ??? Take vbdo-tte-ltxqpxd and prescription medicines only as told by [...] This is important. (more content not included)... [facility] 08-18-2024 History of Present illness Narrative Images [...] refill takes 2 to 3 seconds. Comments: yuri Neurological: General: No focal deficit present. Mental [...] and b ridge documented in this encounter [facility] 08-18-2024 Instructions Park Yoder NP - 08/18/2024 3:40 PM EST No med dose changes at this time MAKE SURE YOU KEEP TAKING YOUR SUPPLEMENTS!!!! I will send you lab slip in October 2024 documented in this encounter [facility] 06-07-2024 Miscellaneous Notes Images from the original note were not included. Makenzie Roberson RN 06/07/2024 2:28 PM EDT Back to Top Lab results and TLMs recommendations called and reviewed with patient. Pt will decrease Lipitor to 20 mg daily, repeat fasting labs next year and new script will be sent to [facility] today. Makenzie Roberson RN 06/07/2024 2:22 PM EDT MD Makenzie Sheikh RN I would decrease his Lipitor down to 20 mg a day and recheck it in a year. Makenzie Roberson RN 06/07/2024 11:53 AM EDT TLM, labs ordered d/t med refills. Med list includes Lipitor 40 mg daily. Chol 68 Trigly 36 LDL 13.8 signed documented in this encounter [facility] 06-07-2024 Telephone encounter Note Images from the original note were not included. Makenzie Roberson RN 06/07/2024 2:28 PM EDT Back to Top Lab results and TLMs recommendations called and reviewed with patient. Pt will decrease Lipitor to 20 mg daily, repeat fasting labs next year and new script will be sent to [facility] today. Makenzie Roberson RN 06/07/2024 2:22 PM EDT MD Makenzie Sheikh RN I would decrease his Lipitor down to 20 mg a day and recheck it in a year. Makenzie Roberson RN 06/07/2024 11:53 AM EDT TLM, labs ordered d/t med refills. Med list includes Lipitor 40 mg daily. Chol 68 Trigly 36 LDL 13.8 [facility] 06-07-2024 Telephone encounter Note signed [facility] 05-25-2024 History of Present illness Narrative [...] getting stronger as well. Went and saw brady, had repeat labs and 24 hour urine. [...] vit d def documented in this encounter [facility] 05-20-2024 Miscellaneous Notes OV 04/27/24 04/02/24 CBC, CMP documented in this encounter [facility] 05-20-2024 Telephone encounter Note OV 04/27/24 04/02/24 CBC, CMP [facility] 05-18-2024 Miscellaneous Notes Last OV 04/27/24 Order placed for lipids.slm documented in this encounter [facility] 05-18-2024 Telephone encounter Note Last OV 04/27/24 Order placed for lipids.slm [facility] 05-06-2024 Miscellaneous Notes Last ov 04/27/24 Bmp 04/21/24 Lipid 04/01/23 Tank Truck Driver attempted to contact pt, lmom For further refills, pt needs to complete lipid lab. Letter mailed tp pt. documented in this encounter [facility] 05-06-2024 Telephone encounter Note Last ov 04/27/24 Bmp 04/21/24 Lipid 04/01/23 Tank Truck Driver attempted to contact pt, lmom For further refills, pt needs to complete lipid lab. Letter mailed tp pt. [facility] 04-27-2024 History of Present illness Narrative [...] prostatic hyperplasia) Chronic systolic congestive heart failure ([facility]-HCC) Encounter for preprocedural cardiovascular examination Hyperlipidemia Kidney stones lithotrypsy Ventricular premature depolarization No data recorded No data recorded No data recorded Past Surgical History: Procedure Laterality Date APPENDECTOMY CHOLECYSTECTOMY Coronary angiogram and right heart and left ventricular gram/pressure N/A 04/14/2017 Performed by Aidan Pittman MD at [facility] CARDIAC CATH LABS GASTRIC BYPASS HERNIA REPAIR PVC ABLATION, RHYTHMIA, ICE N/A 11/13/2017 Performed by Sameer Martínez MD at [facility] (EP) TRANSURETHRAL RESECTION OF PROSTATE Family History [...] this encounter. There are no discontinued medications. [id number] Score: 1 0.6% Stroke risk per year, 0.9% risk of stroke/TIA/systemic embolism IMPRESSIONS/PLAN 1. Nonischemic cardiomyopathy (CMS-HCC) - Echo complete W/O contrast; Future - POCT EKG 2. Chronic systolic heart failure (CMS-HCC) - POCT EKG 3. Nonsustained ventricular tachycardia (CMS-HCC) - POCT EKG 4. Status post ablation [...] (around 04/27/2025). PCP: GAYE HERNANDEZ Referring Physician: GAYE Hernandez [address] [place] [address] Pt would like to schedule testing at [facility]. Pt given echo orders. documented in this encounter [facility] 04-26-2024 Miscellaneous Notes Left message for patient to remind them to bring their most current medication list with them to their appointment. documented in this encounter [facility] 04-26-2024 Telephone encounter Note Left message for patient to remind them to bring their most current medication list with them to their appointment. [facility] 11-04-2023 History of Present illness Narrative [...] cont current meds documented in this encounter [facility] 10-19-2023 Hospital Discharge instructions [...] urethra. Follow these instructions at home: Take lolz-jfk-ldlsbmn and prescription medicines only as told by [...] provider. Document Revised: 04/02/2022 Document Reviewed: 04/02/2022 [employer] Patient Education 2022 [employer]. Follow Up Care 04/13/2023 16:26:55 With:ANAHI MCDONALD, Delma Ross, URL Address: [facility] [address], [place] [address]- When:Within 1 Year(s) Comments:w/FESTUS [facility] 04-13-2023 Hospital Discharge instructions Patient Education 04/13/2023 [...] similar to normal prostate cells (well differentiated). [place] 7: This indicates that the cancer cells [...] stress of having cancer. General instructions Take gbpc-wnw-pojexui and prescription medicines only as told by your health care provider. If you have to go to the hospital, notify your cancer specialist (oncologist). Keep all follow-up visits. This is important. Where to find more information [place] [employer]: www.cancer.org [place] [employer] of Clinical Oncology: www.cancer.net National Cancer Homeland: www.cancer.gov Contact a health care provider if: [...] provider. Document Revised: 12/11/2021 Document Reviewed: 12/11/2021 [employer] Patient Education 2022 [employer]. Follow Up Care 03/16/2023 14:05:40 With:ANAHI MCDONALD, Delma Ross, URL Address: [facility] [address] [place] [address] [phone] When: Unknown Comments:6 mos w/ PSA and PVR [facility] 11-03-2022 Hospital Discharge instructions Patient Education 11/03/2022 [...] urethra. Follow these instructions at home: Take ynjo-zep-gopdioy and prescription medicines only as told by [...] 09/14/2006 Document Revised: 08/09/2019 Document Reviewed: 10/19/2017 [employer] Patient Education 2020 [employer]. Follow Up Care 10/13/2022 13:53:44 With:ANAHI MCDONALD, Delma Ross, DELANEY Address: [facility] [address], [place] [address]- When: Unknown [facility] 05-19-2022 Hospital Discharge instructions Patient Education 05/19/2022 16:24:13 Prostatitis, Eyem-we-Gcis Prostatitis Prostatitis is swelling of the prostate gland. The prostate helps to make semen. It is below a man's bladder, in front of the rectum. There are different types of prostatitis. Follow these instructions at home: Take okjs-hsn-bmqtcpd and prescription medicines only as told by [...] 03/15/2013 Document Revised: 08/27/2018 Document Reviewed: 06/04/2017 [employer] Patient Education 2020 [employer]. 05/19/2022 16:24:11 Calorie Counting for Weight Loss [...] 09/14/2006 Document Revised: 06/03/2019 Document Reviewed: 08/14/2017 [employer] Patient Education 2020 [employer]. Follow Up Care 11/22/2021 12:25:13 With:ANAHI MCDONALD, Delma Ross, URL Address: [address] [place], [place] [address], [place] [address]- Business (1) When:Within 6 Month(s) Comments:w/FESTUS [facility] 12-18-2021 Note OPERATIVE NOTE PREOPERATIVE DIAGNOSIS: Iron deficiency anemia. POSTOPERATIVE DIAGNOSIS: Small ulcer in the gastric body as well as mild gastritis within the gastric body as well as poor colon prep. PROCEDURE: EGD with cold biopsy forceps biopsy of the gastric body and colonoscopy to splenic flexure. SURGEON: Ary Costello M.D. ANESTHESIA: Monitored anesthesia care. INDICATIONS AND [...] to the poor prep. CC: Park Yoder, [facility] Signed and Approved by: DR ARY COSTELLO . 12/20/2021 11:57:00 [facility] Evaluation + Plan note Future Appointments Appointment Date:05/19/2022 03:15:00 PM Scheduled Provider:Delma CHRISTIAN MD Location:[facility] Appointment Type:URO Office Visit General [facility] Evaluation + Plan note Future Appointments Appointment Date:11/24/2022 03:30:00 PM Scheduled Provider:Delma CHRISTIAN MD Location:[facility] Appointment Type:URO Office Visit Diagnostic Tests PendingPSA Total 05/19/22 [facility] Evaluation + Plan note Future Appointments Appointment Date:03/18/2023 08:30:00 AM Scheduled Provider:Delma CHRISTIAN MD Location:[facility] Appointment Type:URO Office Visit Diagnostic Tests PendingUroVysion Fish and Urine Cyto ([facility]) 11/04/22 [facility] Evaluation + Plan note Future Appointments Appointment Date:03/23/2023 03:00:00 PM Scheduled Provider:Delma CHRISTIAN MD Location:[facility] Appointment Type:URO Office Visit [facility] Evaluation + Plan note Future Appointments Appointment Date:10/19/2023 02:45:00 PM Scheduled Provider:Delma CHRISTIAN MD Location:[facility] Appointment Type:URO Office Visit Diagnostic Tests PendingPSA Total 04/13/23 [facility] Evaluation + Plan note Future Appointments Appointment Date:10/24/2024 03:00:00 PM Scheduled Provider:Delma CHRISTIAN MD Location:[facility] Appointment Type:URO Office Visit Diagnostic Tests PendingPSA Total 10/19/23 [facility] Evaluation + Plan note Future Appointments Appointment Date:10/23/2025 03:15:00 PM Scheduled Provider:Delma CHRISTIAN MD Location:[facility] Appointment Type:URO Office Visit Diagnostic Tests PendingPSA Total 10/24/24 [facility] Evaluation note Diagnosis Iron deficiency [...] bariatric surgery Hypocalcemia documented in this encounter [facility]* Diagnosis Weakness- Primary Other malaise and fatigue Thrombocytopenia, unspecified (CMS/HCC) Thrombocytopenia, unspecified Hyperparathyroidism, unspecified (CMS/HCC) Hyperparathyroidism, unspecified Other ventricular tachycardia (CMS/HCC) Elevated liver function tests Other abnormal blood chemistry Iron deficiency anemia following bariatric surgery Primary hypertension (CMS/HCC) Unspecified essential hypertension Elevated parathyroid hormone Vitamin D deficiency documented in this encounter [facility] Healthcare[facility] note* Diagnosis Nonischemic cardiomyopathy (CMS-HCC)- Primary Other primary cardiomyopathies Chronic systolic heart failure (CMS-HCC) Chronic systolic heart failure Nonsustained ventricular tachycardia (CMS-HCC) Status post ablation of ventricular arrhythmia Other postprocedural status [facility] Diagnosis Mixed hyperlipidemia- Primary documented in this encounter [facility] Diagnosis Mixed hyperlipidemia- Primary documented in this encounter [facility]* Diagnosis Iron deficiency anemia [...] (of renal origin) documented in this encounter [facility]* Diagnosis Iron deficiency anemia following bariatric surgery- Primary BMI 37.0-37.9, adult Nonischemic cardiomyopathy (HCC) Other primary cardiomyopathies Primary hypertension Unspecified essential hypertension Chronic systolic heart failure (HCC) Chronic systolic heart failure H/O bariatric surgery Mixed hyperlipidemia Mixed hyperlipidemia Weakness- Primary Other malaise and fatigue DDD (degenerative disc disease), cervical Degeneration of cervical intervertebral disc DDD (degenerative disc disease), lumbar Degeneration of lumbar or lumbosacral intervertebral disc H/O bariatric surgery Paresthesia of both feet Primary hypertension Unspecified essential hypertension DDD (degenerative disc disease), lumbar- Primary Degeneration of lumbar or lumbosacral intervertebral disc Elevated liver function tests Other abnormal blood chemistry Acute cystitis without hematuria Iron deficiency anemia following bariatric surgery Hypocalcemia Weakness- Primary Other malaise and fatigue Thrombocytopenia, unspecified Hyperparathyroidism, unspecified (HCC) Hyperparathyroidism, unspecified Other ventricular tachycardia (HCC) Elevated liver function tests Other abnormal blood chemistry Iron deficiency anemia following bariatric surgery Primary hypertension Unspecified essential hypertension Elevated parathyroid hormone Vitamin D deficiency Primary hypertension- Primary Unspecified essential hypertension Chronic systolic heart failure (HCC) Chronic systolic heart failure H/O bariatric surgery BMI 37.0-37.9, adult Elevated liver function tests Other abnormal blood chemistry Vitamin D deficiency Hyperparathyroidism, unspecified (HCC) Hyperparathyroidism, unspecified Iron deficiency anemia following bariatric surgery Hypocalcemia UTI (urinary tract infection), uncomplicated- Primary Urinary tract infection, site not specified [facility] Diagnosis Nonischemic cardiomyopathy (CMS-HCC)- Primary Other primary cardiomyopathies Chronic systolic heart failure (CMS-HCC) Chronic systolic heart failure [facility] N[facility] No data available for this section [facility] Discharge instructions No data available for this section [facility] InstructionsNot on filedocumented in this encounter [facility] [...] available for this section [facility] Summary Purpose Family History No [...] Referral Specialty Diagnoses / Procedures Referred By Contac t Referred To Contact Diagnoses Nonischemic cardiomyopathy (CMS-HCC) Procedures Echo complete W/O contrast Yisel Mitchell MD [address] [place] [address] Referral ID Status Reason Start Date Expiration Date V isits Requested Visits Authorized [id number] Pending Review 04/27/2024 04/27/2025 1 1 Additional Source Comments (unrecognized sect ion and content) No Status Records FoundNo Status Records FoundNo Status Records FoundNo Status Records FoundNo Status Records FoundNo Status Records FoundNo Status Records Found INFORMATION SOURCE (unrecogn ized section and content) DATE CREATED AUTHOR 03/18/2018 [facility] DATE CREATED AUTHOR AUTHOR'S ORGANIZ ATION 04/15/2019 [facility] DATE CREATED AUTHOR AUTHOR'S ORGANIZ ATION 12/16/2021 [facility] DATE CREATED AUTHOR AUTHOR'S ORGANIZ ATION 11/28/2022 [facility] DATE CREATED AUTHOR AUTHOR'S ORGANIZ ATION 04/29/2024 [facility] DATE CREATED AUTHOR AUTHOR'S ORGANIZ ATION 10/28/2024 [facility] DATE CREATED AUTHOR AUTHOR'S ORGANIZ ATION 12/01/2024 [facility] Care Team (unrecognized sect ion and content) Chestnut Tanner Relationship Specialty Start Date End Date Kenny Hartley MD [address] [place] [phone] PCP - General Family Medicine 10/26/23 Chestnut Tanner Relationship Specialty Start Date End Date Kenny Hartley MD [address] [place] [phone] PCP - General Family Medicine 10/26/23 Chestnut Tanner Relationship Specialty Start Date End Date Kenny Hartley MD [address] [place] [phone] PCP - General Family Medicine 10/26/23 Park Yoder NP [address] [place] [phone] PCP - [place] [employer] 03/28/24 Chestnut Tanner Relationship Specialty Start Date End Date Kenny Hartley MD [address] [place] [phone] PCP - General Family Medicine 10/26/23 Park Yoder NP [address] [place] [phone] PCP - [facility] [employer] 03/28/24 Chest[employer] Tanner Relationship Specialty Start Date End Date Kenny Hartley MD [address] [place] [phone] PCP - General Family Medicine 10/26/23 Park Yoder NP [address] [place] [id number] PCP - [facility] [employer] 03/28/24 Chest[employer] Tanner Relationship Specialty Start Date End Date Kenny Hartley MD [address] [place] [id number] PCP - General Family Medicine 10/26/23 Park Yoder NP [address] [place] [phone] PCP - [facility] [employer] 03/28/24 Chestnut Tanner Relationship Specialty Start Date End Date Kenny Hartley MD [address] [place] [phone] PCP - General Family Medicine 10/26/23 Park Yoder NP [address] [place] [phone] PCP - [facility] [employer] 03/28/24 Chestnut Tanner Relationship Specialty Start Date End Date Kenny Hartley MD [address] [place] [phone] PCP - General Family Medicine 10/26/23 Park Yoder NP [address] [place] [phone] PCP - [facility] [employer] 03/28/24 Chestnut Tanner Relationship Specialty Start Date End Date Kenny Hartley MD [address] [place] [phone] PCP - General Family Medicine 10/26/23 Park Yoder NP [address] [place] [phone] PCP - [facility] [employer] 03/28/24 Chestnut Tanner Relationship Specialty Start Date End Date Park Yoder, [employer] [address] [place] [phone] PCP - General Nurse Practitioner 03/15/20 Chestnut Tanner Relationship Specialty Start Date End Date Park Yoder, [employer] [address] [place] [phone] PCP - General Nurse Practitioner 03/15/20 Chest[place] Tanner Relationship Specialty Start Date End Date Park Yoder, [employer] [address] [place] [phone] PCP - General Nurse Practitioner 03/15/20 Chest[place] Tanner Relationship Specialty Start Date End Date Park Yoder, [facility] [address] [place] [address] PCP - General Nurse Practitioner 03/15/20 Chestnut Tanner Relationship Specialty Start Date End Date Park Yoder, [facility] PCP - General Nurse Practitioner 03/15/20 Chestnut Tanner Relationship Specialty Start Date End Date Park Yoder, [facility] PCP - General Nurse Practitioner 03/15/20 Chestnut Tanner Relationship Specialty Start Date End Date Park Yoder, [facility] PCP - General Nurse Practitioner 03/15/20 Chest[employer] Tanner Relationship Specialty Start Date End Date Kenny Hartley MD [address] [place] [phone] PCP - General Family Medicine 10/26/23 Park Yoder NP [address] [place] [phone] PCP - [facility] [employer] 03/28/24 Chestnut Tanner Relationship Specialty Start Date End Date Kenny Hartley MD [address] [place] [phone] PCP - General Family Medicine 10/26/23 Park Yoder NP [address] [place] [address] PCP - [facility] [employer] 03/28/24 Chestnut Tanner Relationship Specialty Start Date End Date Kenny Hartley MD [address] [place] [address] PCP - General Family Medicine 10/26/23 Chestnut Tanner Relationship Specialty Start Date End Date Kenny Hartley MD [address] [place] [address] PCP - General [facility] Medicine 10/26/23 Chestnut Tanner Relationship Specialty Start Date End Date Park Yoder APRN-[facility] PCP - General Nurse Practitioner 03/15/20 Chest[place] Tanner Relationship Specialty Start Date End Date Park Yoder, [employer] PCP - General Nurse Practitioner 03/15/20 Chest[employer] Tanner Relationship Specialty Start Date End Date Park Yoder APRN-[facility] PCP - General Nurse Practitioner 03/15/20 Reason for Visit (unrecogniz ed section and [...] BE BASED ON THE PRIMARY CLINICAL RECORDS. [facility]. provides no warranty or guarantee of the accuracy or completeness of information in this document.
== END 2025-05-11 16:10 | disposition home or self-care (01) ==
LOC: CARD 16:09
PROVIDERS: PCP Nurse Practitioner
DX: I42.8 Other cardiomyopathies (principal); I50.22 Chronic systolic (congestive) heart failure
CPT/HCPCS: 93306

== ENCOUNTER 2025-07-07 16:47 | Outpatient (OUT) | payer BC, SELFPAY ==
--- OUTSIDE RECORDS SUMMARY | 2025-07-07 16:52 | XMS_ITS | CCD ---
Author Organization [facility] Care Team Providers Care Consumer Loan Processor Name Role Phone PHYSICIAN, DEFAULT Unavailable Unavailable PHYSICIAN, DEFAULT Unavailable Unavailable AICHHOLZ, PARK J. Referring Unavailable AICHHOLZ, PARK J. Primary Care Unavailable AICHHOLZ, PARK J Primary Care Physician [phone] ANAHI ., DR NGUYỄN Consulting Unavailable CHRISTIAN ., DR NGUYỄN Admitting Unavailable CHRISTIAN ., DR NGUYỄN Attending Unavailable AICHHOLZ, MEAT COUNTER CLERK PARK Primary Care Unavailable MISC, DR AYERS Consulting Unavailable MISC, DR AYERS Admitting Unavailable MISC, DR AYERS Attending Unavailable AICHHOLZ, MEAT COUNTER CLERK PARK Primary Care Unavailable AICHHOLZ, MEAT COUNTER CLERK PARK Consulting Unavailable AICHHOLZ, MEAT COUNTER CLERK PARK Primary Care Unavailable CHRISTIAN ., DR NGUYỄN Admitting Unavailable CHRISTIAN ., DR NGUYỄN Attending Unavailable ZIEBER, DR CASSIDY Ross Consulting Unavailable ELI DALAL Attending Unavailable ELI DALAL Admitting Unavailable AICHHOLZ, MEAT COUNTER CLERK PARK Primary Care Unavailable JENNIFER DRAKE Consulting Unavailable CAMILLE .DEANNE Consulting Unavailirena BECKER ., ISACC Admitting Unavailable EUGENIO .ISACC Attending Unavailable AICHHOLZ, MEAT COUNTER CLERK PARK Primary Care Unavailable ISACC BEJARANO Consulting Unavailable AICHHOLZ, MEAT COUNTER CLERK PARK Primary Care Unavailable NILL ., DR MCALLISTER Admitting Unavailable NILL ., DR MCALLISTER Attending Unavailable NILL ., DR MCALLISTER Consulting Unavailable AICHHOLZ, MEAT COUNTER CLERK PARK Primary Care Unavailable NILL ., DR MCALLISTER Admitting Unavailable NILL ., DR MCALLISTER Attending Unavailable GRACE LEO Consulting Unavailable JUAN ORO Consulting Unavailable AICHHOLZ, MEAT COUNTER CLERK PARK Consulting Unavailable AICHHOLZ, MEAT COUNTER CLERK PARK Primary Care Unavailable AICHHOLZ, MEAT COUNTER CLERK PARK Admitting Unavailable AICHHOLZ, MEAT COUNTER CLERK PARK Attending Unavailable AICHHOLZ, MEAT COUNTER CLERK PARK Consulting Unavailable AICHHOLZ, MEAT COUNTER CLERK PARK Admitting Unavailable AICHHOLZ, MEAT COUNTER CLERK PARK Attending Unavailable AICHLILIANA ANGUIANO Primary Care Unavailable Kenny Hartley MD Primary Care Provider [phone] Park Yoder NP Unavailable Delma CHRISTIAN Attending Unavailable Delma CHRISTIAN Attending Unavailable Paresh PATRICKLILIANA, Park Banuelos Primary Care Provider Paresh [facility] [place], Park Banuelos Primary Care Provider Paresh [facility], Park Baneulos Primary Care Provider Paresh [facility] [place], Park Banuelos Primary Care Provider VIJAY NG Attending Unavailable VIJAY NG Referring Unavailable VIJAY NG Attending Unavailable PARK YODER Attending Unavailable PARK YODER Attending Unavailable PARK YODER Referring Unavailable PARK YODER Primary Care Unavailable ALEXANDRE MCDANIELS Attending Unavailable PARK YODER Referring Unavailable PARK YODER Primary Care Unavailable Paresh FISHERIES TECHNICAL OFFICERAddieCPark Primary Care Provider Paresh FISHERIES TECHNICAL OFFICERAddieCPark Attending Provider Medications Current Medications Medication Drug Class(es) Dates Sig (Normalized) Sig (Original) aspirin 81 mg oral tablet (20 sources) Platelet Aggregation Inhibitor, Nonsteroidal Anti-inflammatory Drug Start: 06-08-2025 take 1 tablet by mouth once daily Aspirin 81 mg tablet Active 81 MG PO Daily June 08, 2025 12:00am Complies with drug therapy Start: 02-06-2020 take 1 tablet by brissa th once daily aspirin 81 mg Take 1 tablet (81 mg total) by mouth daily. 90 tablet 3 02/06/2020 Active Start: 10-20-2019 aspirin 81 mg, Refills(s) 0 Start Date: 10/20/19 Status: Ordered atorvastatin 20 mg oral tablet (20 sources) HMG-CoA Reductase Inhibitor Start: 06-29-2025 take 1 tablet by mouth once daily at bedtime Atorvastatin 20 mg tablet Active 20 MG PO Daily at bedtime June 29, 2025 12:00am Complies with drug therapy Start: 06-08-2025 End: 06-29-2025 take 1 tablet by mouth once daily in the evening Atorvastatin 40 mg tablet Discontinued 40 MG PO Every evening June 08, 2025 12:00am June 29, 2025 3:59pm Start: 06-08-2024 take 1 tablet by brissa th in the morning atorvastatin (LIPITOR) 20 mg tablet Take 1 tablet (20 mg total) by mouth in the morning. 90 tablet 3 06/08/2024 Active Start: 04-27-2020 End: 06-07-2024 take 1 tablet by mouth in the morning atorvastatin (Lipitor) 40 MG tablet Take 1 tablet by mouth in the morning. 08/06/2023 Active calcium carb/vitamin D3/vit K1 (CALCIUM SOFT CHEW ORAL) (13 sources) take 250 mg by mouth in the morning calcium carb/vitamin D3/vit K1 (CALCIUM SOFT CHEW ORAL) Take 250 mg by mouth in the morning. Active take 250 mg by mouth once daily calcium carb/vitamin D3/vit K1 (CALCIUM SOFT CHEW ORAL) Take 250 mg by mouth daily. Active calcium carbonate 500 mg chewable tablet (7 sources) Start: 12-06-2021 calcium carbon ate 500 mg Chew Tab 500 mg = 1 tab(s), Chewed, Daily, Refills(s) 0 Start Date: 12/06/21 Status: Ordered Start: 12-06-2021 calcium carbon ate 500 mg Chew Tab 500 mg = 1 tab(s), Chewed, Daily, Refills(s) 0 Start Date: 12/06/21 Status: Ordered Cholecalciferol (17 sources) Vitamin D Cholecalciferol (VITAMIN D3 GUMMIES ADULT PO) Take by mouth in the morning and at noon and in the evening and before bedtime. Active Cholecalciferol (VITAMIN D3 GUMMIES ADULT PO) Take by mouth 4 (four) times a day Active dutasteride 0.5 mg oral capsule (20 sources) 5-alpha Reductase Inhibitor Start: 05-27-2025 take 1 capsule by mouth once daily Dutasteride (Avodart) 0.5 mg capsule Active 0.5 MG PO Daily June 08, 2025 12:00am Complies with drug therapy Start: 11-04-2022 End: 10-30-2023 take 1 capsule by mouth once daily dutasteride (Avodart) 0.5 MG capsule Take 1 capsule by mouth Daily 09/08/2023 Active ergocalciferol 1.25 mg oral capsule (14 sources) Provitamin D2 Compound Start: 06-08-2025 take 1 capsule by mouth every week Ergocalciferol (Vitamin D2) 1,250 mcg (50,000 unit) capsule Active 1250 MCG PO every week June 08, 2025 12:00am Complies with drug therapy Start: 05-01-2025 take 1 capsule by mo ut every week ergocalciferol (Vitamin D2) 1.25 MG (90492 UT) capsule Indications: Other specified abnormal findings of blood chemistry Take 1 capsule by mouth once a week 12 capsule 1 05/01/2025 Active Start: 11-14-2024 take 1 capsule by mo ut every week ergocalciferol (Vitamin D2) 1.25 MG (39604 UT) capsule Indications: Other specified abnormal findings of blood chemistry Take 1 capsule by mouth once a week 12 capsule 1 11/14/2024 Active Start: 06-01-2024 take 1 capsule by [facility] every week ergocalciferol (Vitamin D2) 1.25 MG (32836 UT) capsule Take 50,000 Units by mouth 1 (one) time per week 06/01/2024 Active ferrous sulfate 325 mg oral tablet (19 sources) Start: 06-08-2025 take 1 tablet by mouth twice daily Ferrous Sulfate 325 mg (65 mg iron) tablet Active 325 MG PO Twice daily June 08, 2025 12:00am Complies with drug therapy take 1 tablet by mouth in the mo rning ferrous sulfate 325 (65 Fe) MG tablet Take 325 mg by mouth in the morning and 325 mg before bedtime. Active fluticasone propionate 0.05 mg/actuat metered dose nasal spray (20 sources) Corticosteroid Start: 06-08-2025 take 1 spray(s) nasal route once daily Fluticasone Propionate (Flonase Allergy Relief) 50 mcg/actuation spray,suspension Active 2 SPRAY INTRANASAL Daily June 08, 2025 12:00am administer into each nostril Complies with drug therapy Start: 03-03-2023 take 2 spray(s) nasa l route once daily fluticasone (Flonase) 50 MCG/ACT nasal spray Administer 2 sprays into each nostril Daily 03/03/2023 Active Start: 03-03-2023 take 2 spray(s) nasa l route in the morning fluticasone (Flonase) 50 MCG/ACT nasal spray Administer 2 sprays into each nostril in the morning. 03/03/2023 Active Iron Chews (7 sources) Start: 12-06-2021 Iron Chews 1, Chewed, Daily, Refills(s) 0 Start Date: 12/06/21 Status: Ordered IRON, FERROUS SULFATE, ORAL (13 sources) IRON, FERROUS SULFATE, ORAL Take 30 mg by mouth. 2 tablets daily-chew Active lisinopril 5 mg oral tablet (20 sources) Angiotensin Converting Enzyme Inhibitor Start: 06-08-2025 take 1 tablet by mouth once daily Lisinopril 5 mg tablet Active 5 MG PO Daily June 08, 2025 12:00am Complies with drug therapy Start: 12-06-2021 End: 05-03-2025 take 1 tablet by mouth in the morning lisinopriL (PRINIVIL,ZESTRIL) 5 mg tablet TAKE 1 TABLET BY MOUTH IN THE MORNING 90 tablet 05/03/2025 Active 24 hr metoprolol succinate 25 mg extended release oral tablet (20 sources) beta-Adrenergic [place] Start: 06-08-2025 take 1 tablet by mouth once daily Metoprolol Succinate 25 mg tablet extended release 24 hr Active 25 MG PO Daily June 08, 2025 12:00am Complies with drug therapy Start: 05-10-2025 take 1 tablet by brissa th twice daily at bedtime metoprolol succinate XL [...] tablet by brissa th once daily metoprolol succinate XL (Toprol-XL) 25 MG 24 hr tablet Take 1 tablet by mouth Daily 07/09/2023 Active Multi Vitamin+ (7 sources) Start: 10-24-2019 Multi Vitamin+ Start Date: 10/24/19 Status: Ordered Multiple Vitamin (multivitamin) tablet (20 sources) take 1 tablet by mouth once daily Multiple Vitamin (multivitamin) tablet Take 1 tablet by mouth Daily Active take 1 tablet by mouth in the mo rning Multiple Vitamin (multivitamin) tablet Take 1 tablet by mouth in the morning. Active take 1 tablet by mouth in the mo rning Multiple Vitamin (multivitamin) tablet Take 1 tablet by mouth in the morning. 0 Active multivitamin (THERAGRAN) tablet (13 sources) take 1 tablet by mouth in the morning multivitamin (THERAGRAN) tablet Take 1 tablet by mouth in the morning. Active Multivitamin tablet (1 source) Start: 06-08-2025 take 1 tablet by mouth once daily Multivitamin tablet Active 1 TAB PO Daily June 08, 2025 12:00am Complies with drug therapy Completed/Discontinued Medications Medication Drug Class(es) Dates Sig (Normalized) Sig (Original) cetirizine hydrochloride 10 mg oral tablet (11 sources) Histamine-1 Receptor Antagonist Start: 03-03-2023 End: 08-18-2024 take 1 tablet by mouth in the morning cetirizine (ZyrTEC) 10 MG tablet Take 1 tablet by mouth in the morning. 03/03/2023 08/18/2024 Discontinued (Therapy completed) ciprofloxacin 500 mg oral tablet (5 sources) Quinolone Antimicrobial Start: 06-09-2025 End: 06-25-2025 take 1 tablet by mouth every twelve hours Ciprofloxacin Hcl 500 mg tablet Discontinued 500 MG PO Every 12 hours 14 June 09, 2025 12:00am June 25, 2025 1:15pm Start: 10-13-2022 End: 04-18-2025 take 1 tablet by mouth in the morning ciprofloxacin (Cipro) 500 MG tablet Indications: UTI (urinary tract infection), uncomplicated Take 1 tablet (500 mg) by mouth in the morning and 1 tablet (500 mg) before bedtime. Do all this for 7 days. 14 tablet 04/11/2025 04/18/2025 Active Problems Active Problems Problem Classification Problem Date Documented Date Episodic/Chronic Calculus of urinary tract (20 sources) History of calculus of kidney; Translations: [Kidney stone] Onset: 4 10-24-2019 Episodic Cancer of prostate (20 sources) Malignant tumor of prostate; Translations: [Malignant neoplasm of prostate] Onset: 2 11-30-2020 Chronic Cardiac dysrhythmias (20 sources) Atrial flutter; Translations: [Nonsustained ventricular tachycardia ] Onset: 7 Resolved: 4 12-06-2021 Chronic Coagulation and hemorrhagic disorders (20 sources) Thrombocytopenic disorder; Translations: [Thrombocytopenia, unspecified] Onset: 4 05-25-2024 Chronic Conduction disorders (20 sources) Right bundle branch block; Translations: [Unspecified right bundle-branch block] Onset: 8 12-06-2021 Chronic Congestive heart failure; nonhypertensive (20 sources) Chronic systolic heart failure; Translations: [Chronic systolic (congestive) heart failure] Onset: 7 12-06-2021 Chronic Deficiency and other anemia (20 sources) Iron deficiency anemia; Translations: [Other iron deficiency anemias] Onset: 2 Resolved: 5 Episodic Deficiency and other anemia (11 sources) Anemia 12-06-2021 Episodic Disorders of lipid metabolism (20 sources) [...] 2 Episodic Genitourinary symptoms and ill-defined conditions (14 sources) Blood in urine; Translations: [Gross hematuria] [...] 4 04-05-2024 Chronic Other aftercare (1 source) [facility] (current) use of aspirin; Translations: [DETENTION CURRENT USE OF ASPIRIN] Onset: 2 Episodic Other aftercare (1 source) 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; Translations: [OTH BEAUTY CULTURIST CURRENT DRUG THERAPY] Onset: 2 Episodic Other diseases of kidney and ureters (4 sources) Secondary hyperparathyroidism; Translations: [Secondary hyperparathyroidism of renal origin] 11-29-2024 Chronic Other diseases of kidney and ureters (4 sources) Acquired renal cyst without neoplastic change; Translations: [Cyst of kidney, acquired] Onset: 3 Episodic Other diseases of kidney and ureters (5 sources) Cyst of kidney 11-04-2022 Episodic Other diseases of veins and lymphatics (8 sources) Venous insufficiency of leg 12-06-2021 Episodic Other endocrine disorders (20 sources) Hyperparathyroidism; Translations: [Hyperparathyroidism, unspecified] Onset: 4 05-25-2024 Chronic Other gastrointestinal disorders (20 sources) History of bariatric surgical procedure; Translations: [Bariatric surgery status] Onset: 4 11-04-2023 Episodic Other gastrointestinal disorders (2 sources) History of bypass of stomach; Translations: [Bariatric surgery status] 05-23-2025 Episodic Other nervous system disorders (19 sources) Neuropathy; Translations: [Polyneuropathy, unspecified] Onset: 4 05-02-2024 Chronic Other nervous system disorders (19 sources) Paresthesia of foot ; Translations: [Paresthesia of skin] Onset: 4 02-18-2024 Episodic Other nutritional; endocrine; and metabolic disorders (20 sources) Body mass index 30+ - obesity; Translations: [Body mass index (BMI) 37.0-37.9, adult] Onset: 4 12-06-2021 Chronic Other nutritional; endocrine; and metabolic disorders (5 sources) Obese class II; Translations: [Body mass index (BMI) 36.0-36.9, adult] Onset: 2 Chronic Other nutritional; endocrine; and metabolic disorders (20 sources) Hypocalcemia; Translations: [Hypocalcemia] Onset: 4 03-30-2024 Chronic Other nutritional; endocrine; and metabolic disorders (2 sources) Morbid obesity; Translations: [Morbid (severe) obesity due to excess calories] 06-29-2025 Chronic Other screening for suspected conditions (not mental disorders or infectious disease) (20 sources) Other specified abnormal findings of blood chemistry; Translations: [Other abnormal blood chemistry] Onset: 7 Resolved: 4 02-18-2024 Episodic Catherine-; endo-; and myocarditis; cardiomyopathy (except that caused by tuberculosis or sexually transmitted disease) (20 sources) Cardiomyopathy; Translations: [Other cardiomyopathies] Onset: 7 12-06-2021 Chronic Pulmonary heart disease (1 source) Pulmonary hypertension, unspecified; Translations: [PULMONARY HYPERTENSION UNSPECIFIED] Onset: 2 Chronic Residual codes; unclassified (1 source) Tobacco user 10-24-2024 Episodic Residual codes; unclassified (1 source) Pain, unspecified; Translations: [Pain, unspecified] Onset: 5 Episodic Screening and history of mental health [...] sources) History of SARS-CoV-2 Onset: 2 03-12-2023 Urinary tract infections (20 sources) Urinary tract infection, site not specified; Translations: [Acute cystitis] Onset: 2 Resolved: 4 05-25-2024 Episodic Past or Other Problems Problem Classification Problem Date Documented Da te Episodic/Chronic Acute and unspecified renal failure (17 sources) Acute renal failure syndrome; Translations: [Acute kidney failure, unspecified] Onset: 01-15-2014 03-12-2023 Episodic Complications of surgical procedures or medical care (10 sources) Postoperative complication; Translations: [Other complications of other bariatric procedure] Onset: 12-24-2021 Episodic Deficiency and other anemia (5 sources) Iron deficiency anemia, unspecified; Translations: [IRON DEFICIENCY ANEMIA UNSPECIFIED] Onset: 12-18-2021 Episodic Deficiency and other anemia (6 sources) Iron deficiency anemia secondary to inadequate dietary iron intake; Translations: [Other iron deficiency anemias] Onset: 02-13-2025 02-13-2025 Episodic Fluid and electrolyte disorders (17 sources) Hypokalemia; Translations: [Hypokalemia] Onset: 01-15-2014 03-12-2023 Episodic Malaise and fatigue (20 sources) Asthenia; Translations: [Weakness] Onset: 02-18-2024 02-18-2024 Episodic Other diseases of kidney and ureters (6 sources) Urinary tract obstruction; Translations: [Other obstructive and reflux uropathy] Onset: 05-19-2022 Episodic Other gastrointestinal disorders (1 source) Bariatric surgery status; Translations: [BARIATRIC SURGERY STATUS] Onset: 12-24-2021 Episodic Other lower respiratory disease (13 sources) Dyspnea; Translations: [Shortness of breath] Onset: 05-19-2022 05-19-2022 Episodic Residual codes; unclassified (20 sources) H/O cardiac surgery; Translations: [Other specified postprocedural states] Onset: 04-27-2024 05-02-2024 Episodic Results Test Name Value Interpretation Reference Range Facility CA ECHO DOPPLER COMPLETEon 0 05-11-[address] [address] Cardiology Report Signed Patient: SHABNAM BENITEZ MR#: [id number] : 1955 Acct:[id number] Age/Sex: 69 / M ADM Date: 05/11/25 Loc: CARD Attending Dr: BeatriceStaff Physician Marc Ordering Physician: Mario Aiken M.D. Date of Service: 05/11/25 Procedure(s): CA echo doppler complete Accession Number(s): [id number] cc: Park Yoder NP; PhysicianMario M.D. Patient Name: SHABNAM BENITEZ MR#: [id number] : 1955 Exam Date: 05/11/2025 Ordering Doctor: NON-STAFF PHYSICIAN ECHOCARDIOGRAM REPORT PROCEDURE: CA ECHO DOPPLER COMPLETE INDICATIONS: Nonischemic Cardiomyopathy, Chronic CHF COMPARISON: None. DESCRIPTION: COMPLETE ECHOCARDIOGRAM Real-time transthoracic echocardiography with 2D, M-mode, spectral and color flow Doppler performed. QUALITY: Technical quality was good. LEFT VENTRICLE: Normal chamber size. Moderate concentric left ventricular hypertrophy. Global left ventricular systolic function is normal. LV EF: Estimated left ventricular ejection fraction is 55-60%. DIASTOLIC: Normal diastolic function. ATRIAL SEPTUM: LEFT ATRIUM: Severe dilatation. RIGHT ATRIUM: Moderate dilatation. RIGHT VENTRICLE: Mild dilatation. Mildly reduced right ventricular systolic function. TRICUSPID VALVE: Normal mobility and thickness. No stenosis with mild regurgitation. No evidence of pulmonary hypertension. RVSP 26 mmHg. MITRAL VALVE: Mildly thickened with normal mobility. No evidence of mitral valve stenosis. There is no mitral annular calcification. Mild mitral regurgitation. AORTIC VALVE: Normal trileaflet appearance. Thickened aortic valve. Normal leaflet mobility. No evidence of aortic valve stenosis. Trivial aortic regurgitation. AORTIC ROOT: Normal diameter and appearance, measuring 3.8 cm. The ascending aorta is normal in size, measure 3.2 cm. PULMONIC VALVE: Normal thickness and mobility. No stenosis. No regurgitation. PERICARDIUM: Trivial pericardial effusion. IVC: Not well visualized. PLEURA: CONCLUSION: 1. Moderate concentric left ventricular hypertrophy with normal systolic function. Estimated LVEF is 55 to 60%. 2. Mildly dilated right ventricle with mildly reduced systolic function. 3. Normal diastolic function. 4. Moderate severe biatrial dilatation. 5. Mild mitral and tricuspid regurgitation. 6. Normal right-sided pressures. Adult Echocardiography Procedure Report Left Ventricle LVEDD (3.7 - 5.6 cm): 4.59 cm LVESD (2.2 - 4.0 cm): 3.25 cm LVIVS thickness (0.6 - 1.2 cm): 1.49 cm LVPW thickness (0.5 - 1.0 cm): 1.32 cm e': 0.10 m/s E - e': 5.46 LVOT Max Gradient: 3.45 mm[Hg] LVOT Area (cm2): 0.93 m/s Peak Velocity (LVOT): 0.93 m/s Mean Velocity (LVOT): 0.66 m/s LVOT Diameter 2.20 cm Left Ventricular Ejection Fraction: 55-60 % Left Atrium LA Volume Index (2D A2C): 54.40 ml/m2 Left Atrium Systolic Dimension: 5.34 cm Mitral Valve MV E to A Ratio: 0.67 Mitral Valve A-Wave Peak Velocity: 0.81 m/s Mitral Valve E-Wave Peak Velocity: 0.54 m/s Right Ventricle RV Internal Diastolic Dimension: 4.64 cm Aorta AO Root Diam: 3.80 cm Ascending Ao Diam: 3.25 cm Aortic Valve AoV Area (Peak Reji): 3.05 cm2, 3.05 cm2 AoV Area (VTI): 3.33 cm2, 3.33 cm2 Peak Velocity(Antegrade Flow): 1.15 m/s Peak Gradient(Antegrade Flow): 5.31 mm[Hg] Mean Velocity(Antegrade Flow): 0.77 m/s Mean Gradient(Antegrade Flow): 2.83 mm[Hg] Velocity Time Integral: 26.54 cm Tricuspid Valve Peak Velocity (Regurgitant Flow): 2.01 m/s, 2.40 m/s Pulmonic Valve Peak Velocity: 1.09 m/s Peak Gradient: 5.02 mm[Hg], 4.46 mm[Hg] Right Atrium Right Atrium Systolic Pressure: 91.35 ml, 91.35 ml Dictated by: Jeannie Hobbs M.D. on 05/11/2025 at 22:32 Approved by: Jeannie Hobbs M.D. on 05/11/2025 at 22:36 (more content not included)... [facility] Radiology, Radiologist, - 05/11/2025 [place] [address] Cardiology Report Signed Patient: SHABNAM BENITEZ MR#: [id number] : 1955 Acct:[id number] Age/Sex: 69 / M ADM Date: 05/11/25 Loc: CARD Attending Dr: BeatriceStaff Physician Marc Ordering Physician: Mario Aiken M.D. Date of Service: 05/11/25 Procedure(s): CA echo doppler complete Accession Number(s): [id number] cc: Park Yoder NP; Mario Aiken M.D. Patient Name: SHABNAM BENITEZ MR#: [id number] : 1955 Exam Date: 05/11/2025 Ordering Doctor: BEATRICESTAFF ECHOCARDIOGRAM REPORT PROCEDURE: CA ECHO DOPPLER COMPLETE INDICATIONS: Nonischemic Cardiomyopathy, Chronic CHF COMPARISON: None. DESCRIPTION: COMPLETE ECHOCARDIOGRAM Real-time transthoracic echocardiography with 2D, M-mode, spectral and color flow Doppler performed. QUALITY: Technical quality was good. LEFT VENTRICLE: Normal chamber size. Moderate concentric left ventricular hypertrophy. Global left ventricular systolic function is normal. LV EF: Estimated left ventricular ejection fraction is 55-60%. DIASTOLIC: Normal diastolic function. ATRIAL SEPTUM: LEFT ATRIUM: Severe dilatation. RIGHT ATRIUM: Moderate dilatation. RIGHT VENTRICLE: Mild dilatation. Mildly reduced right ventricular systolic function. TRICUSPID VALVE: Normal mobility and thickness. No stenosis with mild regurgitation. No evidence of pulmonary hypertension. RVSP 26 mmHg. MITRAL VALVE: Mildly thickened with normal mobility. No evidence of mitral valve stenosis. There is no mitral annular calcification. Mild mitral regurgitation. AORTIC VALVE: Normal trileaflet appearance. Thickened aortic valve. Normal leaflet mobility. No evidence of aortic valve stenosis. Trivial aortic regurgitation. AORTIC ROOT: Normal diameter and appearance, measuring 3.8 cm. The ascending aorta is normal in size, measure 3.2 cm. PULMONIC VALVE: Normal thickness and mobility. No stenosis. No regurgitation. PERICARDIUM: Trivial pericardial effusion. IVC: Not well visualized. PLEURA: CONCLUSION: 1. Moderate concentric left ventricular hypertrophy with normal systolic function. Estimated LVEF is 55 to 60%. 2. Mildly dilated right ventricle with mildly reduced systolic function. 3. Normal diastolic function. 4. Moderate severe biatrial dilatation. 5. Mild mitral and tricuspid regurgitation. 6. Normal right-sided pressures. Adult Echocardiography Procedure Report Left Ventricle LVEDD (3.7 - 5.6 cm): 4.59 cm LVESD (2.2 - 4.0 cm): 3.25 cm LVIVS thickness (0.6 - 1.2 cm): 1.49 cm LVPW thickness (0.5 - 1.0 cm): 1.32 cm e': 0.10 m/s E - e': 5.46 LVOT Max Gradient: 3.45 mm[Hg] LVOT Area (cm2): 0.93 m/s Peak Velocity (LVOT): 0.93 m/s Mean Velocity (LVOT): 0.66 m/s LVOT Diameter 2.20 cm Left Ventricular Ejection Fraction: 55-60 % Left Atrium LA Volume Index (2D A2C): 54.40 ml/m2 Left Atrium Systolic Dimension: 5.34 cm Mitral Valve MV E to A Ratio: 0.67 Mitral Valve A-Wave Peak Velocity: 0.81 m/s Mitral Valve E-Wave Peak Velocity: 0.54 m/s Right Ventricle RV Internal Diastolic Dimension: 4.64 cm Aorta AO Root Diam: 3.80 cm Ascending Ao Diam: 3.25 cm Aortic Valve AoV Area (Peak Reji): 3.05 cm2, 3.05 cm2 AoV Area (VTI): 3.33 cm2, 3.33 cm2 Peak Velocity(Antegrade Flow): 1.15 m/s Peak Gradient(Antegrade Flow): 5.31 mm[Hg] Mean Velocity(Antegrade Flow): 0.77 m/s Mean Gradient(Antegrade Flow): 2.83 mm[Hg] Velocity Time Integral: 26.54 cm Tricuspid Valve Peak Velocity (Regurgitant Flow): 2.01 m/s, 2.40 m/s Pulmonic Valve Peak Velocity: 1.09 m/s Peak Gradient: 5.02 mm[Hg], 4.46 mm[Hg] Right Atrium Right Atrium Systolic Pressure: 91.35 ml, 91.35 ml Dictated by: Jeannie Hobbs M.D. on 05/11/2025 at 22:32 Approved by: Jeannie Hobbs M.D. on 05/11/2025 at 22:36 Dictated By: JEANNIE HOBBS Signed By: 05/11/252236 DD/ 35 TD/TT: [facility] Study observation (narrative) [facility] CA ECHO DOPPLER COMPLETEOrde red By: Radiologist Radiology on 05-11-2025 [facility] Work Phone: [facility] CMP (CMP) (FOR REMOTE FH C USE)on 04-11-2025 Albumin [Mass/Vol] 3.7 g/dL 3.4 - 5.0 g/dL NO [facility] ALBUMIN GLOBULIN RATIO 1.3 [facility] ALP [Catalytic activity/Vol] 110 U/L 46 - 116 U/L [facility] ALT [Catalytic activity/Vol] 57 U/L 16 - 63 U/L [facility] Anion gap [Moles/Vol] 18 mmol/L [facility] AST [Catalytic activity/Vol] 29 U/L 15 - 37 U/L [facility] Bilirubin [Mass/Vol] 0.7 mg/dL 0.2 - 1 .0 mg/dL [facility] Calcium [Mass/Vol] 8.4 mg/dL Low 8.5 - 10. 1 mg/dL [facility] Chloride [Moles/Vol] 113 mmol/L High 98 - 10 7 mmol/L [facility] CO2 [Moles/Vol] 18.4 mmol/L Low 21.0 - 32.0 mmol/L [facility] Creatinine [Mass/Vol] 1.11 mg/dL 0.70 - 1.30 mg/dL [facility] GFR/1.73 sq M.predicted CKD-EPI (S/P/Bld) [Vol rate/Area] >60 >=60 mL/min/1.73m 2 [facility] Globulin (S) [Mass/Vol] 2.8 g/dL [facility] Glucose [Mass/Vol] 90 mg/dL 74 - 106 mg/dL NO [facility] Interpretation and review of laboratory results Abnormal [facility] Potassium [Moles/Vol] 4.4 mmol/L 3.5 - 5.1 mmol/L [facility] Protein [Mass/Vol] 6.5 g/dL 6.4 - 8.2 g/dL NO [facility] Sodium [Moles/Vol] 145 mmol/L 136 - 145 mmol/L [facility] TBH EGFR-NON AF PAPUA NEW GUINEAN >60 >=60 mL/min/1.73m 2 [facility] Urea nitrogen [Mass/Vol] 41 mg/dL High 7.0 - 18.0 mg/dL [facility] Urea nitrogen/Creatinine [Mass ratio] 36.9 mg/mg [facility] Urology Office/Clinic Noteon 10-24-2024 Urology Office/Clinic Note [...] monitoring Follow-up With When Contact Information Delma CHRISTIAN MD, URL [facility] [address], [place] [phone] [phone] Additional Instructions: 1 yr w/ PSA and KUB Patient Education Prostatitis I, Shala Soares, personally scribed for Dr. Christian on 10/24/2024 [...] ventricular tachycar (more content not included)... [facility] Comment on above: Result Comment: Elec tronically Signed By: Delma CHRISTIAN MD\.br\Date and Time Signed: 10/24/24 17:17 EST\.br\Electronically Co-Signed By: Shala Soares\.br\Date and Time Co-Signed: 10/24/24 17:16 EST MHPT PSA, DIAGNOSTICon 10-21 PROSTATE SPECIFIC ANTIGEN DX 2.13 ng/mL NINF - 4.00 ng/mL [facility] ALL CBC WITH AUTO DIFFon BASOPHILS ABSOLUTE AUTO 0.1 [facility] Basophils/100 WBC (Bld) 0.9 % 0.2 - 2.0 % [facility] Eosinophils/100 WBC (Bld) 3.3 % 0.9 - 7.0 % [facility] Erythrocyte distribution width (RBC) [Ratio] 14.8 % 11.0 - 15.0 % [facility] Hematocrit (Bld) [Volume fraction] 38.5 % Low 42.0 - 54.0 % [facility] Hemoglobin (Bld) [Mass/Vol] 11.6 g/dL Low 14.0 - 18.0 g/dL [facility] IMMATURE GRANULOCYTES ABS AUTO 0.01 [facility] Immature granulocytes/100 WBC (Bld) 0.2 % 0.0 - 0.5 % [facility] Interpretation and review of laboratory results Abnormal [facility] LYMPHOCYTES ABSOLUTE AUTO 1.9 [facility] Lymphocytes/100 WBC (Bld) 29.1 % 20.5 - 60.0 % [facility] MCH (RBC) [Entitic mass] 31.5 pg 25.9 - 34.0 pg [facility] MCHC (RBC) [Mass/Vol] 30.1 g/dL 29.9 - 35.2 g/dL [facility] MCV (RBC) [Entitic vol] 104.6 fL High 80.0 - 94.0 fL [facility] MONOCYTES ABSOLUTE AUTO 0.4 [facility] Monocytes/100 WBC (Bld) 6.9 % 1.7 - 12.0 % [facility] NEUTROPHILS ABSOLUTE AUTO 3.8 [facility] Neutrophils/100 WBC (Bld) 59.6 % 43.0 - 75.0 % [facility] Platelet mean volume (Bld) [Entitic vol] 10.6 fL 9.5 - 13.5 fL [facility] EO # 0.2 [facility] PLT 140 Low [facility] RBC 3.68 Low [facility] WBC 6.4 [facility] ALL LIPID PROFILE (FASTING)o n 06-07-2024 CHOL HDL RATIO 1.4 [facility] Comment on above: 3.3 - 4.4 LOW RISK 4.4 - 7.1 AVERAGE RISK 7.1 - 11.0 MODERATE RISK >11.0 HIGH RISK Cholesterol [Mass/Vol] 68 mg/dL NINF - 200 mg/dL [facility] Cholesterol in HDL [Mass/Vol] 47 mg/dL 40 - 60 mg/dL [facility] Comment on above: > or =60 mg/dl - LOW CARDIOVASCULAR RISK <40 mg/dl - HIGH CARDIOVASCULAR RISK Magnesium [Mass/Vol] 13.8 mg/dL [facility] Comment on above: <100 mg/dl OPTIMAL 100-129 mg/dl NEAR OR ABOVE OPTIMAL 130-159 mg/dl BORDERLINE HIGH 160-189 mg/dl HIGH >190 mg/dl VERY HIGH Magnesium [Mass/Vol] 7.2 mg/dL [facility] Triglyceride [Mass/Vol] 36 mg/dL NINF - 150 mg/dL [facility] ER URINE PROFILEon 2 Bilirubin Ql (U) Negative Normal NEGATIVE [facility] Comment on above: Performed By: #### U MICRO, ERUR #### [facility] [address] [address] [address] Santhosh Francois Clarity (U) CLEAR Normal CLEAR [facility] Comment on above: Performed By: #### U MICRO, ERUR #### [facility] [address] [address] [address] Santhosh Francois Color (U) LT. YELLOW Normal YELLOW [facility] Comment on above: Performed By: #### U MICRO, ERUR #### [facility] [address] [place] [address] Dr. Santhosh ESPINALD A micrscopic examination will be performed if indicated. Normal [facility] Comment on above: Performed By: #### U MICRO, ERUR #### [facility] [address] [address] [address] Santhosh Francois Glucose Ql (U) Negative Normal NEGATIVE [facility] Comment on above: Performed By: #### U MICRO, ERUR #### [facility] [address] [address] [address] Santhosh Francois Hemoglobin Ql (U) LARGE Abnormal NEGATIVE [facility] Comment on above: Performed By: #### U MICRO, ERUR #### [facility] [address] [address] [address] Santhosh Francois Ketones Ql (U) Negative Normal NEGATIVE [facility] Comment on above: Performed By: #### U MICRO, ERUR #### [facility] [address] [address] [address] Santhosh Francois LEUKOCYTES Negative Normal NEGATIVE [facility] Comment on above: Performed By: #### U MICRO, ERUR #### [facility] [address] [address] [address] Santhosh Francois Nitrite Ql (U) Negative Normal NEGATIVE [facility] Comment on above: Performed By: #### U MICRO, ERUR #### [facility] [address] [place] [address] Dr. Santhosh Francois pH (U) 5.0 [pH] Normal 5-9 [facility] Comment on above: Performed By: #### U MICRO, ERUR #### [facility] [address] [place] [address] Dr. Santhosh Francois SPEC GRAVITY 1.010 Normal 1.005-<=1.025 [facility] Comment on above: Performed By: #### U MICRO, ERUR #### [facility] [address] [place] [address] Dr. Santhosh Francois UA PROTEIN TRACE Normal NEGATIVE/ TRACE [facility] Comment on above: Performed By: #### U MICRO, ERUR #### [facility] [address] [place] [address] Dr. Santhosh Francois UR MICRO IND INDICATED Normal [facility] Comment on above: Performed By: #### U MICRO, ERUR #### [facility] [address] [place] [address] Dr. Santhosh Francois Urobilinogen Qn (U) 0.2 {Malini'U}/dL Normal 0.2 - 1. 0 [facility] Comment on above: Performed By: #### U MICRO, ERUR #### [facility] [address] [place] [address] Dr. Santhosh Francois URINE MICROSCOPIC ONLYon BACTERIA NONE SEEN Normal NONE SEEN [facility] Comment on above: Performed By: #### C BC #### [facility] [address] [place] [address] Dr. Santhosh Francois Bacteria identified Cx Nom (U) NOT INDICATED Normal [facility] Comment on above: Performed By: #### C BC #### [facility] [address] [place] [address] Dr. Santhosh Francois CAST NONE SEEN Normal NONE SEEN [facility] Comment on above: Performed By: #### C BC #### [facility] [address] [place] [address] Dr. Santhosh Francois Crystals LM Nom (Urine sed) NONE SEEN Normal NONE SEEN [facility] Comment on above: Performed By: #### C BC #### [facility] [address] [place] [address] Dr. Santhosh Francois Epithelial cells LM Ql (Urine sed) RARE Normal NONE SEEN /RARE [facility] Comment on above: Performed By: #### C BC #### [facility] [address] [place] [address] Dr. Santhosh Francois MUCOUS NONE SEEN Normal NONE SEEN [facility] Comment on above: Performed By: #### C BC #### [facility] [address] [place] [address] Dr. Santhosh Francois RBC 10-20 Abnormal 0-2 [facility] Comment on above: Performed By: #### C BC #### [facility] [address] [place] [address] Dr. Santhosh Francois WBC NONE SEEN Normal NONE SEEN [facility] Comment on above: Performed By: #### C BC #### [facility] [address] [place] [address] Dr. Santhosh Francois LIPID PROFILEon 05-16-2022 CHOL-HDL RATIO NORM SEE BELOW Normal [facility] Comment on above: Result Comment: 3.3 - 4.4 LOW RISK 4.4 - 7.1 AVERAGE RISK 7.1 - 11.0 MODERATE RISK >11.0 HIGH RISK Performed By: #### C BC #### [facility] [address] [place] [address] Dr. Santhosh Francois Cholesterol [Mass/Vol] 58 mg/dL Normal <=200 [facility] Comment on above: Performed By: #### C BC #### [facility] [address] [place] [address] Dr. Santhosh Francois Cholesterol in HDL [Mass/Vol] 38 mg/dL Critically low 40-60 [facility] Comment on above: Performed By: #### C BC #### [facility] [address] [place] [address] Dr. Santhosh Francois Cholesterol in LDL [Mass/Vol] 14.0 mg/dL Normal [facility] Comment on above: Performed By: #### C BC #### [facility] [address] [address] [address] Santhosh Francois Cholesterol.total/Ch olesterol in HDL [Mass ratio] 1.5 {ratio} Normal [facility] Comment on above: Performed By: #### C BC #### [facility] [address] [address] [address] Santhosh Francois HDL NORMAL > or = 60 mg/dl - LO W CARDIOVASCULAR RISK <40 mg/dl - HIGH CARDIOVASCULAR RISK Normal [facility] Comment on above: Performed By: #### C BC #### [facility] [address] [address] [address] Santhosh Francois LDL CALC NORMAL SEE BELOW Normal [facility] Comment on above: Result Comment: <100 mg/dl OPTIMAL 100 - 129 mg/dl NEAR OR ABOVE OPTIMAL 130 - 159 mg/dl BORDERLINE HIGH 160 - 189 mg/dl HIGH >190 mg/dl VERY HIGH Performed By: #### C BC #### [facility] [address] [place] [address] Dr. Santhosh Francois Triglyceride [Mass/Vol] 30 mg/dL Normal <=150 [facility] Comment on above: Performed By: #### C BC #### [facility] [address] [place] [address] Dr. Santhosh Francois VLDL CALC 6.0 mg/dL Normal [facility] Comment on above: Performed By: #### C BC #### [facility] [address] [address] [address] Santhosh Francois PROF 14(COMP METB)on 022 Albumin [Mass/Vol] 3.6 g/dL Normal 3.4-5.0 [facility] Comment on above: Performed By: #### C BC #### [facility] [address] [place] [address] Dr. Santhosh Francois Albumin/Globulin [Mass ratio] 1.1 {ratio} Normal [facility] Comment on above: Performed By: #### C BC #### [facility] [address] [place] [address] Dr. Santhosh Francois ALP [Catalytic activity/Vol] 145 U/L Critically high 46-116 [facility] Comment on above: Performed By: #### C BC #### [facility] [address] [address] [address] Santhosh Francois ALT [Catalytic activity/Vol] 102 U/L Critically high 16-63 [facility] Comment on above: Performed By: #### C BC #### [facility] [address] [address] [address] Santhosh Francois Anion gap [Moles/Vol] 12.7 mmol/L Normal [facility] Comment on above: Performed By: #### C BC #### [facility] [address] [address] [address] Santhosh Francois AST [Catalytic activity/Vol] 68 U/L Critically high 15-37 [facility] Comment on above: Performed By: #### C BC #### [facility] [address] [address] [address] Santhosh Francois Bilirubin [Mass/Vol] 1.0 mg/dL Normal 0.2-1.0 [facility] Comment on above: Performed By: #### C BC #### [facility] [address] [place] [address] Dr. Santhosh Francois Calcium [Mass/Vol] 8.0 mg/dL Critically low 8.5-10.1 [facility] Comment on above: Performed By: #### C BC #### [facility] [address] [address] [address] Santhosh Francois Chloride [Moles/Vol] 111 mmol/L Critically high 98-107 [facility] Comment on above: Performed By: #### C BC #### [facility] [address] [address] [address] Santhosh Francois CO2 [Moles/Vol] 20.6 mmol/L Critically low 21.0-32.0 [facility] Comment on above: Performed By: #### C BC #### [facility] [address] [address] [address] Santhosh Francois Creatinine [Mass/Vol] 0.96 mg/dL Normal 0.70-1.30 [facility] Comment on above: Performed By: #### C BC #### [facility] [address] [address] [address] Santhosh Francois EGFR-AF PAPUA [place] GUINEAN >60 Normal >=60 [facility] Comment on above: Performed By: #### C BC #### [facility] [address] [address] [address] Santhosh Francois EGFR-NON AF PAPUA [place] GU[place]AN >60 Normal >=60 [facility] Comment on above: Performed By: #### C BC #### [facility] [address] [address] [address] Santhosh Francois Globulin (S) [Mass/Vol] 3.2 g/dL Normal [facility] Comment on above: Performed By: #### C BC #### [facility] [address] [place] [address] Dr. Santhosh Francois Glucose [Mass/Vol] 88 mg/dL Normal 74-106 [facility] Comment on above: Performed By: #### C BC #### [facility] [address] [place] [address] Dr. Santhosh Francois Potassium [Moles/Vol] 4.3 mmol/L Normal 3.5-5.1 [facility] Comment on above: Performed By: #### C BC #### [facility] [address] [place] [address] Dr. Santhosh Francois Protein [Mass/Vol] 6.8 g/dL Normal 6.4-8.2 [facility] Comment on above: Performed By: #### C BC #### [facility] [address] [place] [address] Dr. Santhosh Francois Sodium [Moles/Vol] 140 mmol/L Normal 136-145 [facility] Comment on above: Performed By: #### C BC #### [facility] [address] [place] [address] Dr. Santhosh Francois Urea nitrogen [Mass/Vol] 26.0 mg/dL Critically high 7.0-18.0 [facility] Comment on above: Performed By: #### C BC #### [facility] [address] [address] [address] Santhosh Francois Urea nitrogen/Creatinine [Mass ratio] 27.1 mg/mg Normal [facility] Comment on above: Performed By: #### C BC #### [facility] [address] [address] [address] Santhosh Francois CBC AUTO DIFFon 04-30-2022 BASO # 0.0 103/ul Normal 0.0-0.1 [facility] Comment on above: Performed By: #### C BC #### [facility] [address] [place] [address] Dr. Santhosh Francois Basophils/100 WBC (Bld) 0.5 % Normal 0.2-2.0 [facility] Comment on above: Performed By: #### C BC #### [facility] [address] [place] [address] Dr. Santhosh Francois EO # 0.2 103/ul Normal 0.0-0.7 [facility] Comment on above: Performed By: #### C BC #### [facility] [address] [place] [address] Dr. Santhosh Francois Eosinophils/100 WBC (Bld) 2.9 % Normal 0.9-7.0 [facility] Comment on above: Performed By: #### C BC #### [facility] [address] [place] [address] Dr. Santhosh Francois Erythrocyte distribution width (RBC) [Ratio] 14.9 % Normal 11.0-15.0 [facility] Comment on above: Performed By: #### C BC #### [facility] [address] [place] [address] Dr. Santhosh Francois Hematocrit (Bld) [Volume fraction] 39.1 % Critically low 42.0-54.0 [facility] Comment on above: Performed By: #### C BC #### [facility] [address] [place] [address] Dr. Santhosh Francois Hemoglobin (Bld) [Mass/Vol] 12.2 g/dL Critically low 14.0-18.0 [facility] Comment on above: Performed By: #### C BC #### [facility] [address] [place] [address] Dr. Santhosh Francois IG # 0.01 10e3/ul Normal 0.00-0.03 [facility] Comment on above: Performed By: #### C BC #### [facility] [address] [place] [address] Dr. Santhosh Francois IG % 0.2 % Normal 0.0-0.5 [facility] Comment on above: Performed By: #### C BC #### [facility] [address] [place] [address] Dr. Santhosh Francois LYMPH # 2.0 103/ul Normal 1.2-3.8 [facility] Comment on above: Performed By: #### C BC #### [facility] [address] [place] [address] Dr. Santhosh Francois Lymphocytes/100 WBC (Bld) 32.6 % Normal 20.5-60.0 [facility] Comment on above: Performed By: #### C BC #### [facility] [address] [place] [address] Dr. Santhosh Francois MANUAL DIFF REQ NO Normal [facility] Comment on above: Performed By: #### C BC #### [facility] [address] [place] [address] Dr. Santhosh Francois MCH (RBC) [Entitic mass] 29.9 pg Normal 25.9-34.0 [facility] Comment on above: Performed By: #### C BC #### [facility] [address] [place] [address] Dr. Santhosh Francois MCHC (RBC) [Mass/Vol] 31.2 g/dL Normal 29.9-35.2 [facility] Comment on above: Performed By: #### C BC #### [facility] [address] [place] [address] Dr. Santhosh Francois MCV (RBC) [Entitic vol] 95.8 fL Critically high 80.0-94.0 [facility] Comment on above: Performed By: #### C BC #### [facility] [address] [address] [address] Santhosh Francois MONO # 0.5 103/ul Normal 0.3-0.8 [facility] Comment on above: Performed By: #### C BC #### [facility] [address] [address] [address] Santhosh Francois Monocytes/100 WBC (Bld) 7.9 % Normal 1.7-12.0 [facility] Comment on above: Performed By: #### C BC #### [facility] [address] [address] [address] Santhosh Francois NEUT # 3.5 103/ul Normal 1.4-6.5 [facility] Comment on above: Performed By: #### C BC #### [facility] [address] [address] [address] Santhosh Francois Neutrophils/100 WBC (Bld) 55.9 % Normal 43.0-75.0 [facility] Comment on above: Performed By: #### C BC #### [facility] [address] [place] [address] Dr. Santhosh Francois Platelet mean volume (Bld) [Entitic vol] 10.6 fL Normal 9.5-13.5 [facility] Comment on above: Performed By: #### C BC #### [facility] [address] [place] [address] Dr. Santhosh Francois PLT 125 103/ul Critically low 150-450 [facility] Comment on above: Performed By: #### C BC #### [facility] [address] [address] [address] Santhosh Francois RBC 4.08 106/ul Critically low 4.70-6.10 [facility] Comment on above: Performed By: #### C BC #### [facility] [address] [place] [address] Dr. Santhosh Francois WBC 6.2 103/ul Normal 4.0-11.0 [facility] Comment on above: Performed By: #### C BC #### [facility] [address] [place], [place] [id number] Dr. Santhosh Francois CT ABD/PELVIS WO CONon [...] CASSIDY DILLON Date: 2022-04-30 18:05 Normal [facility] CULTURE URINEon 04-30-2022 CULTURE URINE Culture Observations : NO GROWTH. Normal [facility] Comment on above: Performed By: #### U RCX #### [facility] [address] [place] [address] Dr. Santhosh Francois ER URINE PROFILEon 2 Bilirubin Ql (U) Unable to perform testing due to color interference. Abnormal NEGATIVE [facility] Comment on above: Performed By: #### E RUR, UMICRO #### [facility] [address] [place] [address] Dr. Santhosh Francois Clarity (U) TURBID Abnormal CLEAR [facility] Comment on above: Performed By: #### E RUR, UMICRO #### [facility] [address] [place] [address] Dr. Santhosh Francois Color (U) RED Abnormal YELLOW [facility] Comment on above: Performed By: #### E RUR, UMICRO #### [facility] [address] [place] [address] Dr. Santhosh Francois ERUAHD A micrscopic examination will be performed if indicated. Normal [facility] Comment on above: Performed By: #### E RUR, UMICRO #### [facility] [address] [place] [address] Dr. Santhosh Francois Glucose Ql (U) Unable to perform testing due to color interference. Abnormal NEGATIVE [facility] Comment on above: Performed By: #### E RUR, UMICRO #### [facility] [address] [place] [address] Dr. Santhosh Francois Hemoglobin Ql (U) Unable to perform testing due to color interference. Abnormal NEGATIVE [facility] Comment on above: Performed By: #### E RUR, UMICRO #### [facility] [address] [place] [address] Dr. Santhosh Francois Ketones Ql (U) Unable to perform testing due to color interference. Abnormal NEGATIVE [facility] Comment on above: Performed By: #### E RUR, UMICRO #### [facility] [address] [place] [address] Dr. Santhosh Francois LEUKOCYTES Unable to perform testing due to color interference. Abnormal NEGATIVE [facility] Comment on above: Performed By: #### E RUR, UMICRO #### [facility] [address] [place] [address] Dr. Santhosh Francois Nitrite Ql (U) Unable to perform testing due to color interference. Abnormal NEGATIVE [facility] Comment on above: Performed By: #### E RUR, UMICRO #### [facility] [address] [place] [address] Dr. Santhosh Francois pH (U) 6.0 [pH] Normal 5-9 [facility] Comment on above: Performed By: #### Camilo NAPOLES, UMICRO #### [facility] [address] [place] [address] Dr. Santhosh Francois SPEC GRAVITY 1.025 Normal 1.005-<=1.025 [facility] Comment on above: Performed By: #### Camilo NAPOLES, UMICRO #### [facility] [address] [place] [address] Dr. Santhosh Francois UA PROTEIN Unable to perform testing due to color interference. Normal NEGATIVE/ TRACE [facility] Comment on above: Performed By: #### Camilo NAPOLES, ICRO #### [facility] [address] [place] [address] Dr. Santhosh Francois UR MICRO IND INDICATED Normal [facility] Comment on above: Performed By: #### Camilo NAPOLES, ICRO #### [facility] [address] [place] [address] Dr. Santhosh Francois UROBILINOGEN Unable to perform testing due to color interference. Normal 0.2 - 1.0 [facility] Comment on above: Performed By: #### Camilo NAPOLES, UMICRO #### [facility] [address] [place] [address] Dr. Santhosh Francois PROF CHEM 8 (BAS METB)on Anion gap [Moles/Vol] 12.6 mmol/L Normal [facility] Comment on above: Performed By: #### B MP #### [facility] [address] [place] [address] Dr. Santhosh Francois Calcium [Mass/Vol] 7.7 mg/dL Critically low 8.5-10.1 [facility] Comment on above: Performed By: #### B MP #### [facility] [address] [place] [address] Dr. Santhosh Francois Chloride [Moles/Vol] 114 mmol/L Critically high 98-107 [facility] Comment on above: Performed By: #### B MP #### [facility] [address] [address] [address] Santhosh Francois CO2 [Moles/Vol] 21.1 mmol/L Normal 21.0-32.0 The [facility] Comment on above: Performed By: #### B MP #### [facility] [address] [address] [address] Santhosh Francois Creatinine [Mass/Vol] 1.12 mg/dL Normal 0.70-1.30 [facility] Comment on above: Performed By: #### B MP #### [facility] [address] [address] [address] Santhosh Francois EGFR-AF P[place] >60 Normal >=60 [facility] Comment on above: Performed By: #### B MP #### [facility] [address] [address] [address] Santhosh Francois EGFR-NON AF [place] >60 Normal >=60 [facility] Comment on above: Performed By: #### B MP #### [facility] [address] [address] [address] Santhosh Francois Glucose [Mass/Vol] 90 mg/dL Normal 74-106 [facility] Comment on above: Performed By: #### B MP #### [facility] [address] [address] [address] Santhosh Francois Potassium [Moles/Vol] 3.7 mmol/L Normal 3.5-5.1 [facility] Comment on above: Performed By: #### B MP #### [facility] [address] [address] [address] Santhosh Francois Sodium [Moles/Vol] 144 mmol/L Normal 136-145 [facility] Comment on above: Performed By: #### B MP #### [facility] [address] [address] [address] Santhosh Francois Urea nitrogen [Mass/Vol] 23.0 mg/dL Critically high 7.0-18.0 [facility] Comment on above: Performed By: #### B MP #### [facility] [address] [place] [address] Dr. Santhosh Francois Urea nitrogen/Creatinine [Mass ratio] 20.5 mg/mg Normal [facility] Comment on above: Performed By: #### B MP #### [facility] [address] [place] [address] Dr. Santhosh Francois URINE MICROSCOPIC ONLYon BACTERIA NONE SEEN Normal NONE SEEN [facility] Comment on above: Performed By: #### Camilo NAPOLES UMICRO #### [facility] [address] [place] [address] Dr. Santhosh Francois Bacteria identified Cx Nom (U) NOT INDICATED Normal [facility] Comment on above: Performed By: #### Camilo NAPOLES UMICRO #### [facility] [address] [place] [address] Dr. Santhosh Francois CAST NONE SEEN Normal NONE SEEN [facility] Comment on above: Performed By: #### Camilo NAPOLES UMICRO #### [facility] [address] [place] [address] Dr. Santhosh Francois Crystals LM Nom (Urine sed) NONE SEEN Normal NONE SEEN [facility] Comment on above: Performed By: #### Camilo NAPOLES UMICRO #### [facility] [address] [place] [address] Dr. Santhosh Francois Epithelial cells LM Ql (Urine sed) NONE SEEN Normal NONE SEEN /RARE [facility] Comment on above: Performed By: #### Camilo NAPOLES UMICRO #### [facility] [address] [place] [address] Dr. Santhosh Francois MUCOUS NONE SEEN Normal NONE SEEN [facility] Comment on above: Performed By: #### Camilo NAPOLES UMICRO #### [facility] [address] [place] [address] Dr. Santhosh Francois RBC (U) [#/Vol] /uL Abnormal 0-2 [facility] Comment on above: Performed By: #### Camilo NAPOLES UMICRO #### [facility] [address] [place] [address] Dr. Santhosh Francois WBC 10-20 Abnormal NONE SEEN [facility] Comment on above: Performed By: #### E NICOL NAPOLES #### [facility] [address] [place] [address] Dr. Santhosh Francois CBC AUTO DIFFon 03-07-2022 BASO # 0.1 103/ul Normal 0.0-0.1 [facility] Comment on above: Performed By: #### C BC #### [facility] [address] [place] [address] Dr. Santhosh Francois Basophils/100 WBC (Bld) 0.8 % Normal 0.2-2.0 [facility] Comment on above: Performed By: #### C BC #### [facility] [address] [place] [address] Dr. Santhosh Francois EO # 0.1 103/ul Normal 0.0-0.7 [facility] Comment on above: Performed By: #### C BC #### [facility] [address] [place] [address] Dr. Santhosh Francois Eosinophils/100 WBC (Bld) 1.9 % Normal 0.9-7.0 [facility] Comment on above: Performed By: #### C BC #### [facility] [address] [place] [address] Dr. Santhosh Francois Erythrocyte distribution width (RBC) [Ratio] 16.4 % Critically high 11.0-15.0 [facility] Comment on above: Performed By: #### C BC #### [facility] [address] [place] [address] Dr. Santhosh Francois Hematocrit (Bld) [Volume fraction] 43.0 % Normal 42.0-54.0 [facility] Comment on above: Performed By: #### C BC #### [facility] [address] [place] [address] Dr. Santhosh Francois Hemoglobin (Bld) [Mass/Vol] 13.4 g/dL Critically low 14.0-18.0 [facility] Comment on above: Performed By: #### C BC #### [facility] [address] [place] [address] Dr. Santhosh Francois IG # 0.02 10e3/ul Normal 0.00-0.03 [facility] Comment on above: Performed By: #### C BC #### [facility] [address] [place] [address] Dr. Santhosh Francois IG % 0.3 % Normal 0.0-0.5 [facility] Comment on above: Performed By: #### C BC #### [facility] [address] [place] [address] Dr. Santhosh Francois LYMPH # 1.8 103/ul Normal 1.2-3.8 [facility] Comment on above: Performed By: #### C BC #### [facility] [address] [place] [address] Dr. Santhosh Francois Lymphocytes/100 WBC (Bld) 29.2 % Normal 20.5-60.0 [facility] Comment on above: Performed By: #### C BC #### [facility] [address] [place] [address] Dr. Santhosh Francois MANUAL DIFF REQ NO Normal [facility] Comment on above: Performed By: #### C BC #### [facility] [address] [place] [address] Dr. Santhosh Francois MCH (RBC) [Entitic mass] 30.5 pg Normal 25.9-34.0 [facility] Comment on above: Performed By: #### C BC #### [facility] [address] [place] [address] Dr. Santhosh Francois MCHC (RBC) [Mass/Vol] 31.2 g/dL Normal 29.9-35.2 [facility] Comment on above: Performed By: #### C BC #### [facility] [address] [place] [address] Dr. Santhosh Francois MCV (RBC) [Entitic vol] 97.9 fL Critically high 80.0-94.0 [facility] Comment on above: Performed By: #### C BC #### [facility] [address] [place] [address] Dr. Santhosh Francois MONO # 0.4 103/ul Normal 0.3-0.8 [facility] Comment on above: Performed By: #### C BC #### [facility] [address] [address] [address] Santhosh Francois Monocytes/100 WBC (Bld) 6.3 % Normal 1.7-12.0 [facility] Comment on above: Performed By: #### C BC #### [facility] [address] [address] [address] Santhosh Francois NEUT # 3.8 103/ul Normal 1.4-6.5 [facility] Comment on above: Performed By: #### C BC #### [facility] [address] [address] [address] Santhosh Francois Neutrophils/100 WBC (Bld) 61.5 % Normal 43.0-75.0 [facility] Comment on above: Performed By: #### C BC #### [facility] [address] [place] [address] Dr. Santhosh Francois Platelet mean volume (Bld) [Entitic vol] 10.5 fL Normal 9.5-13.5 [facility] Comment on above: Performed By: #### C BC #### [facility] [address] [place] [address] Dr. Santhosh Francois PLT 148 103/ul Critically low 150-450 [facility] Comment on above: Performed By: #### C BC #### [facility] [address] [address] [address] Santhosh Francois RBC 4.39 106/ul Critically low 4.70-6.10 [facility] Comment on above: Performed By: #### C BC #### [facility] [address] [place] [address] Dr. Santhosh Francois WBC 6.2 103/ul Normal 4.0-11.0 [facility] Comment on above: Performed By: #### C BC #### [facility] [address] [place] [address] Dr. Santhosh Francois IRONon 03-07-2022 Iron [Mass/Vol] 125.0 ug/dL Normal 65.0-175.0 [facility] Comment on above: Performed By: #### I JAN #### [facility] [address] [address] [address] Santhosh Francois CBC AUTO DIFFon 12-03-2021 BASO # 0.0 103/ul Normal 0.0-0.1 [facility] Comment on above: Performed By: #### C BC #### [facility] [address] [place] [address] Dr. Santhosh Francois Basophils/100 WBC (Bld) 0.7 % Normal 0.2-2.0 [facility] Comment on above: Performed By: #### C BC #### [facility] [address] [place] [address] Dr. Santhosh Francois EO # 0.2 103/ul Normal 0.0-0.7 [facility] Comment on above: Performed By: #### C BC #### [facility] [address] [place] [address] Dr. Santhosh Francois Eosinophils/100 WBC (Bld) 3.1 % Normal 0.9-7.0 [facility] Comment on above: Performed By: #### C BC #### [facility] [address] [place] [address] Dr. Santhosh Francois Hematocrit (Bld) [Volume fraction] 40.4 % Critically low 42.0-54.0 [facility] Comment on above: Performed By: #### C BC #### [facility] [address] [place] [address] Dr. Santhosh Francois Hemoglobin (Bld) [Mass/Vol] 11.5 g/dL Critically low 14.0-18.0 [facility] Comment on above: Performed By: #### C BC #### [facility] [address] [place] [address] Dr. Santhosh Francios IG # 0.01 10e3/ul Normal 0.00-0.03 [facility] Comment on above: Performed By: #### C BC #### [facility] [address] [place] [address] Dr. Santhosh Francois IG % 0.2 % Normal 0.0-0.5 [facility] Comment on above: Performed By: #### C BC #### [facility] [address] [address] [address] Santhosh Francois LYMPH # 2.0 103/ul Normal 1.2-3.8 [facility] Comment on above: Performed By: #### C BC #### [facility] [address] [place] [address] Dr. Santhosh Francois Lymphocytes/100 WBC (Bld) 33.9 % Normal 20.5-60.0 [facility] Comment on above: Performed By: #### C BC #### [facility] [address] [place] [address] Dr. Santhosh Francois MANUAL DIFF REQ NO Normal [facility] Comment on above: Performed By: #### C BC #### [facility] [address] [place] [address] Dr. Santhosh Francois MCH (RBC) [Entitic mass] 24.1 pg Critically low 25.9-34.0 [facility] Comment on above: Performed By: #### C BC #### [facility] [address] [place] [address] Dr. Santhosh Francois MCHC (RBC) [Mass/Vol] 28.5 g/dL Critically low 29.9-35.2 [facility] Comment on above: Performed By: #### C BC #### [facility] [address] [place] [address] Dr. Santhsoh Francois MCV (RBC) [Entitic vol] 84.5 fL Normal 80.0-94.0 [facility] Comment on above: Performed By: #### C BC #### [facility] [address] [place] [address] Dr. Santhosh Francois MONO # 0.4 103/ul Normal 0.3-0.8 [facility] Comment on above: Performed By: #### C BC #### [facility] [address] [place] [address] Dr. Santhosh Francois Monocytes/100 WBC (Bld) 7.7 % Normal 1.7-12.0 [facility] Comment on above: Performed By: #### C BC #### [facility] [address] [address] [address] Santhosh Francois NEUT # 3.1 103/ul Normal 1.4-6.5 [facility] Comment on above: Performed By: #### C BC #### [facility] [address] [address] [address] Santhosh Francois Neutrophils/100 WBC (Bld) 54.4 % Normal 43.0-75.0 [facility] Comment on above: Performed By: #### C BC #### [facility] [address] [address] [address] Santhosh Francois Platelet mean volume (Bld) [Entitic vol] 10.0 fL Normal 9.5-13.5 [facility] Comment on above: Performed By: #### C BC #### [facility] [address] [place] [address] Dr. Santhosh Francois PLT 191 103/ul Normal 150-450 [facility] Comment on above: Performed By: #### C BC #### [facility] [address] [place] [address] Dr. Santhosh Francois RBC 4.78 106/ul Normal 4.70-6.10 [facility] Comment on above: Performed By: #### C BC #### [facility] [address] [place] [address] Dr. Santhosh Francois WBC 5.8 103/ul Normal 4.0-11.0 [facility] Comment on above: Performed By: #### C BC #### [facility] [address] [place] [address] Dr. Santhosh Francois MR prostate wo/w conon 09-17 MR prostate wo/w con [facility] [address] MRI Report Signed Patient: Shabnam Benitez MR#: [id number] : 1955 Acct:[id number] Age/Sex: 65 / M ADM Date: 09/16/21 Loc: MR Room: Type: [facility] Attending Dr: Delma Christian MD Ordering Provider: [...] AM COT by: Tomy Garza MD Diplomate, [place] [employer] Report Completed: Sep 17, 2021 10:46:46 AM COT This transmission is proprietary, privileged and confidential. It is intended to be communication only for the use of the addressee; access to this message by anyone else is unaut Transcribed By: 09/17/21 1348 Dictated By: NON STAFF 09/17/21 1046 Signed By: 09/17/21 1349 [facility] Blood Urea Nitrogenon 2020 Urea nitrogen [Mass/Vol] 21 mg/dL Normal 9-23 [facility] Comment on above: Order Comment: STAT FOR MRI Performed By: #### C REAT BUN #### [facility] [address] [place] [address] Creatinineon 09-03-2021 Creatinine [Mass/Vol] 1.01 mg/dL Normal 0.64-1.27 [facility] Comment on above: Order Comment: STAT FOR MRI Performed By: #### C REAT, BUN #### [facility] [address] [place] [address] Creatinine Clr Calc Pharmacy 90.06 [facility] Comment on above: Order Comment: STAT FOR MRI Result Comment: PERF ORMED BY: [place] [address] PATHOLOGIST BACKER UP TONNY ZHOU M.D. Performed By: #### C REAT BUN #### [facility] [address] [place] [address] Estimated GFR ( Teresita > 60 Normal [facility] Comment on above: Order Comment: STAT FOR MRI Result Comment: GFR estimated reference range: According to KDOQI guidelines, <60 ml/min/1.73m2 is sufficient to diagnose a patient with chronic kidney disease. Performed By: #### C REAT, BUN #### [facility] [address] [place] [address] [facility] Estimated GFR (Non- Am > 60 Normal [facility] Comment on above: Order Comment: STAT FOR MRI Performed By: #### C REAT, BUN #### [facility] [address] [place] [address] [place] Ironon 04-15-2019 Iron [Mass/Vol] 22 ug/dL Low 59-158 [facility] Comment on above: Performed By: #### C P #### [facility] [address] [place] [address] [employer]ster: Frank Mercado MD #### B12, FE #### [address] [address] [employer] Forester: Rainer Araujo MD Vitamin B12on 04-15-2019 Cobalamin (Vitamin B12) [Mass/Vol] 1062 pg/mL Normal 232-1245 [facility] Comment on above: Performed By: #### C P #### [facility] [address] [place], [place] [id number] [employer]ster: Frank Mercado MD #### B12, FE #### [address] [address] [employer]ster: Rainer Araujo MD Comp Metabolic Profon 2018 Albumin [Mass/Vol] 4.2 g/dL Normal 3.5-5.2 [facility] Comment on above: Performed By: #### C P #### [facility] [address] [place] [address] [employer]ster: Frank Mercado MD #### B12, FE #### [address] [address] [employer]ster: Rainer Araujo MD Albumin/Globulin [Mass ratio] 1.6 {ratio} Normal 1.0-2.5 [facility] Comment on above: Performed By: #### C P #### [facility] [address] [place], [place] [address] [employer]ster: Frank Mercado MD #### B12, FE #### [address] [address] [employer] Forester: Rainer Araujo MD Alkaline Phos 120 U/L Normal 40-129 [facility] Comment on above: Performed By: #### C P #### [facility] [address] [place] [address] [place] [place], [place] [id number] [employer]ster: Frank Mercado MD #### B12, FE #### [address] [address] [employer] Forester: Rainer Araujo MD Bilirubin Ql (U) 0.72 mg/dL Normal 0.3-1.2 [facility] Comment on above: Performed By: #### C P #### [facility] [address] [place] [address] [place], [place] [id number] [employer]ster: Frank Mercado MD #### B12, FE #### [address] [address] [employer] Forester: Rainer Araujo MD Protein [Mass/Vol] 6.8 g/dL Normal 6.4-8.3 [facility] Comment on above: Performed By: #### C P #### [facility] [address] [place] [address] [place] [place], [place] [id number] [employer]ster: Frank Mercado MD #### B12, FE #### [address] [address] [employer] Forester: Rainer Araujo MD (cont.) [facility] Comment on above: Result Comment: Aver age GFR for 60-69 years old: 85 mL/min/1.73sq m Chronic Kidney Disease: <60 mL/min/1.73sq m Kidney failure: <15 mL/min/1.73sq m eGFR calculated using average adult body mass. Additional eGFR calculator available at: http://www.what3words/multiple_crcl_2012.htm Performed By: #### C P #### [facility] [address] [place], [place] [id number] [employer]ster: Frank Mercado MD #### B12, FE #### [address] [address] [employer] Forester: Rainer Araujo MD ALT [Catalytic activity/Vol] 29 U/L Normal 5-41 [facility] Comment on above: Performed By: #### C P #### [address] [place], [place] [id number] [employer] Forester: Frank Mercado MD #### B12, FE #### [address] [address] [employer] Forester: Rainer Araujo MD Anion gap [Moles/Vol] 10 mmol/L Normal [facility] Comment on above: Performed By: #### C P #### [address] [place] [address] [employer] Forester: Frank Mercado MD #### B12, FE #### [address] [address] [employer] Forester: Rainer Araujo MD AST [Catalytic activity/Vol] 26 U/L Normal <40 [facility] Comment on above: Performed By: #### C P #### [address] [place] [address] [employer] Forester: Frank Mercado MD #### B12, FE #### [address] [address] [employer] Forester: Rainer Araujo MD BUN/CRE Ratio 24 High 9-20 [facility] Comment on above: Performed By: #### C P #### [facility] [address] [place], [place] [address] [employer] Forester: Frank Mercado MD #### B12, FE #### [address] [address] [employer] Forester: Rainer Araujo MD Calcium [Mass/Vol] 8.2 mg/dL Low 8.6-10.4 [facility] Comment on above: Performed By: #### C P #### [facility] [address] [place] [address] [employer] Forester: Frank Mercado MD #### B12, FE #### [address] [address] [employer]viculture Forester: Rainer Araujo MD Chloride [Moles/Vol] 115 mmol/L High 98-107 [facility] Comment on above: Performed By: #### C P #### [facility] [address] [place] [address] Silviculture Forester: Frank Mercado MD #### B12, FE #### [address] [address] Silviculture Forester: Rainer Araujo MD CO2 [Moles/Vol] 17 mmol/L Low 20-31 [facility] Comment on above: Performed By: #### C P #### [facility] [address] [place] [address] Silviculture Forester: Frank Mercado MD #### B12, FE #### [address] [address] Silviculture Forester: Rainer Araujo MD Creatinine [Mass/Vol] 1.11 mg/dL Normal 0.70-1.20 [facility] Comment on above: Performed By: #### C P #### [facility] [address] [place] [address] Silviculture Forester: Frank Mercado MD #### B12, FE #### [facility] [address] [place] [address] Silviculture Forester: Rainer Araujo MD GFR, Amer >60 Normal >60 [facility] Comment on above: Performed By: #### C P #### [facility] [address] [place] [address] Silviculture Forester: Frank Mercado MD #### B12, FE #### [facility] [address] [place] [address] Silviculture Forester: Rainer Araujo MD GFR,non Amer >60 Normal >60 [facility] Comment on above: Performed By: #### C P #### [facility] [address] [place] [address] Silviculture Forester: Frank Mercado MD #### B12, FE #### [facility] [address] [place] [address] Silviculture Forester: Rainer Araujo MD Glucose [Mass/Vol] 103 mg/dL High 70-99 [facility] Comment on above: Performed By: #### C P #### [facility] [address] [place] [address] Silviculture Forester: Frank Mercado MD #### B12, FE #### [facility] [address] [place] [address] Silviculture Forester: Rainer Araujo MD Potassium [Moles/Vol] 4.1 mmol/L Normal 3.7-5.3 [facility] Comment on above: Performed By: #### C P #### [facility] [address] [place], [place] [id number] Silviculture Forester: Frank Mercado MD #### B12, FE #### [facility] [address] [place] [address] Silviculture Forester: Rainer Araujo MD Sodium [Moles/Vol] 142 mmol/L Normal 135-144 [facility] Comment on above: Performed By: #### C P #### [facility] [address] [place] [id number] Silviculture Forester: Frank Mercado MD #### B12, FE #### [address] [address] Silviculture Forester: Rainer Araujo MD Staging: Normal [facility] Comment on above: Result Comment: Stag e 1: Some kidney damage normal GFR Stage 2: Mild kidney damage GFR 60-89 Stage 3: Moderate kidney damage GFR 30-59 Stage 4: Severe kidney damage GFR 15-29 Stage 5: Severe kidney damage GFR <15 ESRD - chronic treatment by dialysis or transplant Performed By: #### C P #### [address] [place], [place] [id number] Silviculture Forester: Frank Mercado MD #### B12, FE #### [address] [address] Silviculture Forester: Rainer Araujo MD Urea nitrogen [Mass/Vol] 27 mg/dL High 8-23 [facility] Comment on above: Performed By: #### C P #### [facility] [address] [place] [id number] Silviculture Forester: Frank Mercado MD #### B12, FE #### [address] [address] Silviculture Forester: Rainer Araujo MD Vital Signs Date Time Vital Sign Value Performing Clinician Facility 06-29-2025 15:34-0400 Body height 170.18 cm Park Yoder FISHERIES TECHNICAL OFFICER-C Work Phone: [facility] 06-29-2025 15:34-0400 Body mass index (BMI) [Ratio] 37.5 kg/m2 Park Tatianahholz FISHERIES TECHNICAL OFFICER-C Work Phone: [facility] 06-29-2025 15:34-0400 Body temperature 98.1 [degF] Park Aichholz FISHERIES TECHNICAL OFFICER-C Work Phone: [facility] 06-29-2025 15:34-0400 Body weight 108.57 kg Park Aichholz FISHERIES TECHNICAL OFFICER-C Work Phone: [facility] 06-29-2025 15:34-0400 Diastolic blood pressure 74 mm[Hg] Park Aichholz FISHERIES TECHNICAL OFFICER-C Work Phone: [facility] 06-29-2025 15:34-0400 Heart rate 67 /min Park Aichholz FISHERIES TECHNICAL OFFICER-C Work Phone: [facility] 06-29-2025 15:34-0400 Respiratory rate 16 /min Park Aichholz FISHERIES TECHNICAL OFFICER-C Work Phone: [facility] 06-29-2025 15:34-0400 SaO2% (BldA) [Mass fraction] 94 % Park Tatianahholz FISHERIES TECHNICAL OFFICER-C Work Phone: [facility] 06-29-2025 15:34-0400 Systolic blood pressure 104 mm[Hg] Park Tatianahholz FISHERIES TECHNICAL OFFICER-C Work Phone: [facility] 06-15-2025 14:04-0400 Body height 180.3 cm Alexandre Mcdaniels MD Work Phone: [employer] [facility] 06-15-2025 14:04-0400 Body mass index (BMI) [Ratio] 32.5 kg/m2 Alexandre Mcdaniels MD Work Phone: [employer] [facility] 06-15-2025 14:04-0400 Body weight 105.69 kg Alexandre Mcdaniels MD Work Phone: [employer] 06-15-2025 14:04-0400 Diastolic blood pressure 62 mm[Hg] Alexandre Mcdaniels MD Work Phone: [facility] 06-15-2025 14:04-0400 Heart rate 71 /min Alexandre Mcdaniels MD Work Phone: [facility] 06-15-2025 14:04-0400 SaO2% (BldA) [Mass fraction] 94 % Alexandre Mcdaniels MD Work Phone: [facility] 06-15-2025 14:04-0400 Systolic blood pressure 104 mm[Hg] Alexandre Mcdaniels MD Work Phone: [facility] 05-23-2025 13:30-0400 Body height 165.1 cm Vijay Ng MD Work Phone: [facility] 05-23-2025 13:30-0400 Body mass index (BMI) [Ratio] 38.94 kg/m2 Vijay Ng MD Work Phone: [facility] 05-23-2025 13:30-0400 Body weight 106.14 kg Vijay Ng MD Work Phone: [facility] 05-23-2025 13:30-0400 Diastolic blood pressure 60 mm[Hg] Vijay Ng MD Work Phone: [facility] 05-23-2025 13:30-0400 Heart rate 67 /min Vijay Ng MD Work Phone: [facility] 05-23-2025 13:30-0400 Respiratory rate 16 /min Vijay Ng MD Work Phone: [facility] 05-23-2025 13:30-0400 SaO2% (BldA) [Mass fraction] 98 % Vijay Ng MD Work Phone: [facility] 05-23-2025 13:30-0400 Systolic blood pressure 90 mm[Hg] Vijay Ng MD Work Phone: [facility] 11-29-2024 13:49-0500 Body height 180.3 cm Vijay Ng MD Work Phone: [facility] 11-29-2024 13:49-0500 Body mass index (BMI) [Ratio] 32.5 kg/m2 Vijay Ng MD Work Phone: [facility] 11-29-2024 13:49-0500 Body weight 105.69 kg Vijay Ng MD Work Phone: [facility] 11-29-2024 13:49-0500 Heart rate 70 /min Vijay Ng MD Work Phone: [facility] 11-29-2024 13:49-0500 Respiratory rate 16 /min Vijay Ng MD Work Phone: [facility] 11-29-2024 13:49-0500 SaO2% (BldA) [Mass fraction] 94 % Vijay Ng MD Work Phone: [facility] 10-24-2024 16:02-0500 Diastolic blood pressure 60 mm[Hg] Delma CHRISTIAN [facility] 10-24-2024 16:02-0500 Heart rate 56 /min Delma CHRISTIAN [facility] 10-24-2024 16:02-0500 Respiratory rate 16 /min Delma CHRISTIAN [facility] 10-24-2024 16:02-0500 Systolic blood pressure 94 mm[Hg] Delma CHRISTIAN [facility] 08-18-2024 16:00-0500 Body height 177.8 cm Park Yoder NP Work Phone: [facility] 08-18-2024 16:00-0500 Body mass index (BMI) [Ratio] 33.69 kg/m2 Park Yoder NP Work Phone: [facility] 08-18-2024 16:00-0500 Body temperature 98.1 [degF] Park Tatianahholz FISHERIES TECHNICAL OFFICER Work Phone: [facility] 08-18-2024 16:00-0500 Body weight 106.5 kg Park Aichholz FISHERIES TECHNICAL OFFICER Work Phone: [facility] 08-18-2024 16:00-0500 Diastolic blood pressure 78 mm[Hg] Park Aichholz FISHERIES TECHNICAL OFFICER Work Phone: [facility] 08-18-2024 16:00-0500 Heart rate 71 /min Park Aichholz FISHERIES TECHNICAL OFFICER Work Phone: [facility] 08-18-2024 16:00-0500 Respiratory rate 21 /min Park Aichholz FISHERIES TECHNICAL OFFICER Work Phone: [facility] 08-18-2024 16:00-0500 SaO2% (BldA) [Mass fraction] 97 % Park Aichholz FISHERIES TECHNICAL OFFICER Work Phone: [facility] 08-18-2024 16:00-0500 Systolic blood pressure 122 mm[Hg] Park Aichholz FISHERIES TECHNICAL OFFICER Work Phone: [facility] 05-25-2024 15:52-0400 Body height 177.8 cm Park Aichholz FISHERIES TECHNICAL OFFICER Work Phone: [facility] 05-25-2024 15:52-0400 Body mass index (BMI) [Ratio] 33.29 kg/m2 Park Aichholz FISHERIES TECHNICAL OFFICER Work Phone: [facility] 05-25-2024 15:52-0400 Body temperature 97.3 [degF] Park Aichholz FISHERIES TECHNICAL OFFICER Work Phone: [facility] 05-25-2024 15:52-0400 Body weight 105.23 kg Park Aichholz FISHERIES TECHNICAL OFFICER Work Phone: [facility] 05-25-2024 15:52-0400 Diastolic blood pressure 52 mm[Hg] Park Aichholz FISHERIES TECHNICAL OFFICER Work Phone: [facility] 05-25-2024 15:52-0400 Heart rate 67 /min Park Simpsontiffany FISHERIES TECHNICAL OFFICER Work Phone: [facility] 05-25-2024 15:52-0400 Respiratory rate 18 /min Park Simpsonashliez FISHERIES TECHNICAL OFFICER Work Phone: [facility] 05-25-2024 15:52-0400 SaO2% (BldA) [Mass fraction] 97 % Parkvero Terrazassilvio FISHERIES TECHNICAL OFFICER Work Phone: [facility] 05-25-2024 15:52-0400 Systolic blood pressure 90 mm[Hg] Park Tatianatiffany FISHERIES TECHNICAL OFFICER Work Phone: [facility] 04-27-2024 07:57-0400 Body mass index (BMI) [Ratio] 32.36 kg/m2 Chandu Heart MD Work Phone: [facility] 04-27-2024 07:57-0400 Body weight 105.23 kg Chandu Heart MD Work Phone: [facility] 04-27-2024 07:57-0400 Diastolic blood pressure 60 mm[Hg] Chandu Heart MD Work Phone: [facility] 04-27-2024 07:57-0400 Heart rate 64 /min Chandu Heart MD Work Phone: [facility] 04-27-2024 07:57-0400 Respiratory rate 14 /min Chandu Heart MD Work Phone: [facility] 04-27-2024 07:57-0400 SaO2% (BldA) [Mass fraction] 94 % Chandu Heart MD Work Phone: [facility] 04-27-2024 07:57-0400 Systolic blood pressure 98 mm[Hg] Chandu Heart MD Work Phone: [facility] 11-04-2023 15:54-0500 Body height 177.8 cm Park Paresh FISHERIES TECHNICAL OFFICER Work Phone: [facility] 11-04-2023 15:54-0500 Body mass index (BMI) [Ratio] 34.47 kg/m2 Park Terrazassilvio FISHERIES TECHNICAL OFFICER Work Phone: [facility] 11-04-2023 15:54-0500 Body temperature 97.11 [degF] Park Terrazassilvio FISHERIES TECHNICAL OFFICER Work Phone: [facility] 11-04-2023 15:54-0500 Body weight 108.95 kg Park Terrazasnicolettez FISHERIES TECHNICAL OFFICER Work Phone: [facility] 11-04-2023 15:54-0500 Diastolic blood pressure 78 mm[Hg] Park iSmpsontiffany FISHERIES TECHNICAL OFFICER Work Phone: [facility] 11-04-2023 15:54-0500 Heart rate 66 /min Park Simpsontiffany FISHERIES TECHNICAL OFFICER Work Phone: [facility] 11-04-2023 15:54-0500 Respiratory rate 18 /min Park Terrazassilvio FISHERIES TECHNICAL OFFICER Work Phone: [facility] 11-04-2023 15:54-0500 SaO2% (BldA) [Mass fraction] 97 % Park Terrazasnicolettez FISHERIES TECHNICAL OFFICER Work Phone: [facility] 11-04-2023 15:54-0500 Systolic blood pressure 118 mm[Hg] Park Terrazassilvio FISHERIES TECHNICAL OFFICER Work Phone: [facility] 10-19-2023 15:01-0500 Blood Pressure Location Delma CHRISTIAN [facility] 10-19-2023 15:01-0500 Diastolic blood pressure 60 mm[Hg] Delma CHRISTIAN [facility] 10-19-2023 15:01-0500 Heart rate 64 /min Delma CHRISTIAN [facility] 10-19-2023 15:01-0500 Respiratory rate 16 /min Delma CHRISTIAN [facility] 10-19-2023 15:01-0500 Systolic blood pressure 109 mm[Hg] Delma CHRISTIAN [facility] 04-13-2023 15:59-0400 Blood Pressure Location Delma CHRISTIAN [facility] 04-13-2023 15:59-0400 Diastolic blood pressure 80 mm[Hg] Delma CHRISTIAN [facility] 04-13-2023 15:59-0400 Heart rate 68 /min Delma CHRISTIAN [facility] 04-13-2023 15:59-0400 Respiratory rate 16 /min Delma CHRISTIAN [facility] 04-13-2023 15:59-0400 Systolic blood pressure 130 mm[Hg] Delma CHRISTIAN [facility] 11-04-2022 14:37-0500 Blood Pressure Location Delma CHRISTIAN [facility] 11-04-2022 14:37-0500 Diastolic blood pressure 69 mm[Hg] Delma CHRISTIAN [facility] 11-04-2022 14:37-0500 Heart rate 68 /min Delma CHRISTIAN [facility] 11-04-2022 14:37-0500 Systolic blood pressure 118 mm[Hg] Delma CHRISTIAN [facility] 05-19-2022 15:59-0400 Blood Pressure Location Del[facility]STIAN [facility] 05-19-2022 15:59-0400 Diastolic blood pressure 66 mm[Hg] Del[facility]STIAN [facility] 05-19-2022 15:59-0400 Heart rate 59 /min Delma [facility]RISTIAN [facility] 05-19-2022 15:59-0400 Respiratory rate 16 /min Delma [facility]RISTIAN [facility] 05-19-2022 15:59-0400 Systolic blood pressure 117 mm[Hg] Delma [facility]STIAN [facility] En[facility]ters Encounter Date Encounter Type Care Provider Facility Start: 10-23-2025 ambulatory Delma Dykesi ty:JAYASHREE Estrada Start: 06-29-2025 End: 06-29-2025 ambulatory Park Yoder FISHERIES TECHNICAL OFFICER-C Work Phone: [facility] Work Phone: Start: 06-29-2025 End: 06-29-2025 Patient encounter procedure Park Yoder NP-C -[facility] Work Phone: Start: 06-15-2025 End: 06-15-2025 Office outpatient visit 15 minutes Angela Barney PA-C Work Phone: [facility] Comment on above: Ventricular prematur e depolarization (Primary Dx); Chronic systolic congestive heart failure (CMS-HCC); Nonsustained ventricular tachycardia (CMS-HCC) Start: 06-15-2025 End: 06-15-2025 ambulatory ALEXANDRE MCDANIELS [facility] Start: 06-15-2025 [facility] Start: 06-14-2025 End: 06-14-2025 Telephone encounter Park Roldan CMA [facility] Start: 05-23-2025 End: 05-23-2025 Bamboo flowsheet Vijay Ng MD Work Phone: [facility] Start: 05-23-2025 End: 05-23-2025 Bamboo flowsheet Vijay Ng MD Work Phone: [facility] Start: 05-23-2025 End: 05-23-2025 Office outpatient visit 40 minutes Vijay Ng MD Work Phone: [facility] Comment on above: Hypocalcemia (Primar y Dx); Vitamin D deficiency; Secondary hyperparathyroidism (HCC); Status post gastric bypass for obesity Start: 05-23-2025 End: 05-23-2025 ambulatory VIJAY GN Not Available Start: 05-11-2025 End: 05-11-2025 Clinisync Result Encounter Generic External Data Provider [facility] External [facility] Unsolicited Start: 05-11-2025 End: 05-11-2025 Clinisync Result Encounter Generic External Data Provider [facility] External [facility] Unsolicited Start: 05-10-2025 End: 05-10-2025 Refill Shanel Bonilla CELL STRIPPER FINAL-MEAT COUNTER CLERK Work Phone: [facility] Comment on above: Med Refill Start: 05-02-2025 End: 05-03-2025 Refill Sandi Middleton CELL STRIPPER FINAL-MEAT COUNTER CLERK Work Phone: [facility] Comment on above: Med Refill Start: 04-28-2025 End: 04-28-2025 Orders Only Violeta Peacock RN [facility] Comment on above: Nonischemic cardiomy opathy (CMS-HCC) (Primary Dx); Chronic systolic heart failure (CMS-HCC) Start: 04-11-2025 End: 04-11-2025 Clinisync Result Encounter Park Yoder NP Work Phone: [facility] Unsolicited Start: 04-11-2025 End: 04-11-2025 Clinisync Result Encounter Park Yoder FISHERIES TECHNICAL OFFICER Work Phone: [facility] Unsolicited Start: 04-11-2025 End: 04-11-2025 Refill Park Yoder FISHERIES TECHNICAL OFFICER Work Phone: [facility] Comment on above: UTI (urinary tract i nfection), uncomplicated (Primary Dx) Start: 11-29-2024 End: 11-29-2024 Bamboo flowsheet Vijay Ng MD Work Phone: [facility] Start: 11-29-2024 End: 11-29-2024 BamHOSTINGo flowsheet Vijay Ng MD Work Phone: [facility] Start: 11-29-2024 End: 11-29-2024 Office outpatient visit 25 minutes Vijay Ng MD Work Phone: [facility] Comment on above: Hypocalcemia (Primar y Dx); Vitamin D deficiency; Secondary hyperparathyroidism (CMS/HCC) Start: 11-29-2024 End: 11-29-2024 ambulatory VIJAY NG Not Available Start: 10-24-2024 End: 10-24-2024 ambulatory Delma CHRISITAN Facility:[facility] Start: 10-24-2024 End: 10-24-2024 Patient encounter procedure Delma CHRISTIAN [facility] Start: 10-21-2024 End: 10-21-2024 Clinisync Result Encounter Generic External Data Provider [facility] External [facility] Unsolicited Start: 10-21-2024 End: 10-21-2024 Clinisync Result Encounter Generic External Data Provider [facility] External Department Unsolicited Start: 08-18-2024 End: 08-18-2024 ambulatory PARK YODER Not Available Start: 08-18-2024 End: 08-18-2024 Office outpatient visit 15 minutes Park Yoder FISHERIES TECHNICAL OFFICER Work Phone: [facility] Comment on above: Primary hypertension (CMS/HCC) (Primary Dx); Chronic systolic heart failure (CMS/HCC); H/O bariatric surgery; BMI 37.0-37.9, adult; Elevated liver function tests; Vitamin D deficiency; Hyperparathyroidism, unspecified (CMS/HCC); Iron deficiency anemia following bariatric surgery; Hypocalcemia Start: 08-18-2024 End: 08-18-2024 Bamboo flowsheet Park Yoder FISHERIES TECHNICAL OFFICER Work Phone: [facility] Start: 08-18-2024 End: 08-18-2024 Bamboo flowsheet Park Yoder FISHERIES TECHNICAL OFFICER Work Phone: [facility] Start: 08-17-2024 End: 08-17-2024 Clinisync Result Encounter Park Yoder FISHERIES TECHNICAL OFFICER Work Phone: [facility] Unsolicited Start: 08-17-2024 End: 08-17-2024 Clinisync Result Encounter Park Yoder FISHERIES TECHNICAL OFFICER Work Phone: [facility] Unsolicited Start: [...] Office outpatient visit 25 minutes Park Yoder FISHERIES TECHNICAL OFFICER Work Phone: [facility] Comment on above: Weakness (Primary Dx ); Thrombocytopenia, unspecified (CMS/HCC); Hyperparathyroidism, unspecified (CMS/HCC); Other ventricular tachycardia (CMS/HCC); Elevated liver function tests; Iron deficiency anemia following bariatric surgery; Primary hypertension (CMS/HCC); Elevated parathyroid hormone; Vitamin D deficiency Start: 05-25-2024 End: 05-25-2024 Bamboo flowsheet Park Yoder FISHERIES TECHNICAL OFFICER Work Phone: [facility] Start: 05-25-2024 End: 05-25-2024 Bamboo flowsheet Park Yoder FISHERIES TECHNICAL OFFICER Work Phone: [facility] Start: 05-20-2024 End: 05-20-2024 Refill Makenzie Roberson [facility] Comment on above: Med Refill Start: 05-18-2024 End: 05-19-2024 Refill Karime Mcallister [facility] Comment on above: Med Refill Start: 05-06-2024 End: 05-13-2024 Refill Albino HUIZAR Work Phone: [facility] Comment on above: Med Refill Start: 04-27-2024 End: 04-27-2024 Office outpatient visit 15 minutes Chandu Heart MD [facility] Comment on above: Nonischemic cardiomy opathy (CMS-HCC) (Primary Dx); Chronic systolic heart failure (CMS-HCC); Nonsustained ventricular tachycardia (CMS-HCC); Status post ablation of ventricular arrhythmia Start: 04-26-2024 End: 04-26-2024 Telephone encounter Ifrah Tapia CMA [facility] Start: 02-15-2024 End: 02-16-2024 Refill Violeta Peacock RN [facility] Comment on above: Med Refill Start: 02-09-2024 End: 02-10-2024 Refill Berta Nieves RN [facility] Comment on above: Med Refill Start: 11-04-2023 End: 11-04-2023 Office outpatient visit 15 minutes Park Yoder NP Work Phone: [facility] Comment on above: 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); BMI 37.0-37.9, adult; Nonischemic cardiomyopathy (CMS/HCC); Primary hypertension (CMS/HCC); Chronic systolic heart failure (CMS/HCC); H/O bariatric surgery; Mixed hyperlipidemia (CMS/HCC) Start: 11-04-2023 Bamboo flowsheet Park Yoder FISHERIES TECHNICAL OFFICER Work Phone: [facility] Start: 11-04-2023 Bamboo flowsheet Park Yoder FISHERIES TECHNICAL OFFICER Work Phone: [facility] Start: 10-19-2023 End: 10-19-2023 Patient encounter procedure Delma CHRISTIAN [facility] Start: 04-13-2023 End: 04-13-2023 Patient encounter procedure Delma CHRISTIAN [facility] Start: 03-18-2023 End: 03-18-2023 Patient encounter procedure Delma CHRISTIAN [facility] [place] Start: 11-21-2022 End: 11-22-2022 ambulatory LILIANA YODER Facility:[facility] Start: 11-04-2022 End: 11-04-2022 Patient encounter procedure [facility] Start: 09-12-2022 End: 09-12-2022 ambulatory DEANNE OBRIEN . Facility:[facility] Start: 05-19-2022 End: 05-19-2022 Patient encounter procedure Delma CHRISTIAN [facility] Start: 05-16-2022 End: 05-17-[address] DOCTOR HOWE Facility:[facility] Start: 04-30-2022 End: 04-30-[address] CASSIDY DILLON Facility:[facility] Start: 03-07-2022 End: 03-08-2022 ambulatory LILIANA TERRAZASNICOLETTEMichelle Facility:[facility] Start: 01-01-2022 End: 01-01-2022 Patient encounter procedure Ary COSTELLO General Surgery Nill/Said Jenny Start: 12-18-2021 End: 12-18-[address] ARY COSTELLO . Facility:[facility] Start: 12-14-2021 ambulatory LILIANA TERRAZASSILVIO Facil ity:[facility] Start: 12-03-2021 End: 12-04-2021 ambulatory LILIANA YODER Facility:[facility] Start: 11-12-2021 Patient encounter status Berta Nieves RN [employer] Work Phone: Start: 04-14-2019 End: 04-15-2019 Patient encounter procedure [facility] Start: 01-28-2018 End: 01-29-2018 Ambulatory DEFAULT PHYSICIAN Facility:[facility] Procedures Date Procedure Procedure Detail Performing Clinician Start: 05-11-2025 CA ECHO DOPPLER COMPLETE Generic Externa l Data Provider Start: 04-11-2025 [facility] CMP (CMP) (FOR [facility] USE) Park Yoder FISHERIES TECHNICAL OFFICER Work Phone: Start: 10-21-2024 MHPT PSA, DIAGNOSTIC Generic External Data Provider Start: 08-17-2024 ALL CBC WITH AUTO DIFF Park Yoder FISHERIES TECHNICAL OFFICER Work Phone: Start: 06-07-2024 ALL LIPID PROFILE (FASTING) Generic Exte rnal Data Provider Start: 04-27-2024 Ecg routine ecg w/least 12 lds w/i&r Chandu Heart MD Work Phone: Start: 11-21-[address] DELMA CHRISTIAN . Comment on above: Performed By: #### PSAD #### [facility] [address] [place] [address] Dr. Santhosh Francois Start: 11-04-2022 Cystoscopy Delma CHRISTIAN Start: 05-16-[address] DELMA CHRISTIAN . Comment on above: Performed By: #### PSAD #### [facility] [address] [place] [address] Dr. Santhosh Francois Start: 12-18-2021 Colonoscopy Park Terrazasnicolettemichelle [employer] TECHNICAL OFFICER Work Phone: Start: 12-18-2021 Colonoscopy Ary PRICEL Start: 12-18-2021 Esophagogastroduodenoscopy Ary NILL Start: 11-14-2021 MRI-US fusion guided transrectal biopsy of prostate Ary NILL Start: 03-27-2021 Transrectal biopsy of prostate using ultrasound guidance Ary PRICEL Start: 03-22-2020 Transurethral prostatectomy Ary PRICEL Start: 04-14-2019 Assay of iron PARK YODER Start: 04-14-2019 Comprehensive metabolic panel PARK LOPEZZ Start: 04-14-2019 Cyanocobalamin vitamin b-12 PARK PICKARD Z Start: 01-12-2017 Cystoscope, device (physical object) Ary PRICEL Start: 09-28-1999 Esophagogastrostomy, antesternal or antethoracic Ary NILL Appendectomy Ary PRICEL Cardiac catheterization Devang PRICEL Cholecystectomy Ary PRICEL Colonoscopy Ary NILL History of radiofreq uency ablation operation for arrhythmia Ary NILL Lithotripsy Ary NILL Comment on above: x3 Repair of umbilical hernia Guru PRICEL Plan of Treatment Date Care Activity Detail Author Start: 06-16-2030 DTaP,Tdap and Td Vaccines (2 - Tdap) DTaP,Tdap and Td Vaccines (2 - Tdap) [facility] Start: 06-15-2026 Adult BMI Screening Adult BMI Screening [facility] Start: 06-15-2026 Tobacco Screening Tobacco Screening [facility] Start: 11-21-2025 End: 11-21-2025 Patient encounter procedure 11/21/2025 2:00 PM EST Office Visit [facility] [address] [place] [address] Vijay Ng MD [address] [place] [address] [facility] Start: 06-15-2025 End: 06-15-2025 Patient encounter procedure [facility] Start: 06-08-2025 End: 06-08-2025 Patient encounter procedure 06/08/2025 3:00 PM EDT Office Visit [facility] [address] [place] [address] Park Yoder, FISHERIES TECHNICAL OFFICER [address] [place] [address] [facility] Start: 06-07-2025 End: 06-07-2025 Lipid 1996 panel - Serum or Plasma Lipid profile Lab Routine Mixed hyperlipidemia Expected: 06/07/2025 (Approximate), Expires: 06/07/2025 [facility] Work Phone: Comment on above: Expected: 06/07/2025 (Approximate), Expi res: 06/07/2025 Start: 05-29-2025 COVID-19 Vaccine ( season) COVID-19 Vaccine ( season) [facility] Start: 05-29-2025 Influenza vaccination [facility] Start: 05-23-2025 End: 05-23-2026 25-hydroxyvitamin D3 [Mass/volume] in Serum or Plasma Vitamin D 25 hydroxy Total Lab Routine Hypocalcemia Vitamin D deficiency Secondary hyperparathyroidism (HCC) Expected: 05/23/2025 (Approximate), Expires: 05/23/2026 [facility] Comment on above: Expected: 05/23/2025 (Approximate), Expi res: 05/23/2026 Start: 05-23-2025 End: 05-23-2026 Magnesium [Mass/volume] in Serum or Plasma Magnesium Lab Routine Hypocalcemia Vitamin D deficiency Secondary hyperparathyroidism (HCC) Expected: 05/23/2025 (Approximate), Expires: 05/23/2026 [facility] Work Phone: Comment on above: Expected: 05/23/2025 (Approximate), Expi res: 05/23/2026 Start: 05-23-2025 End: 05-23-2026 Parathyrin.intact and Calcium panel - Serum or Plasma PTH, intact and calcium Lab Routine Hypocalcemia Vitamin D deficiency Secondary hyperparathyroidism (HCC) Expected: 05/23/2025 (Approximate), Expires: 05/23/2026 [facility] Comment on above: Expected: 05/23/2025 (Approximate), Expi res: 05/23/2026 Start: 05-23-2025 End: 05-23-2025 Patient encounter procedure [facility] Comment on above: Arrived Start: 05-23-2025 End: 05-23-2026 Renal function panel Renal function panel Lab Routine Hypocalcemia Vitamin D deficiency Secondary hyperparathyroidism (HCC) Expected: 05/23/2025 (Approximate), Expires: 05/23/2026 [facility] Comment on above: Expected: 05/23/2025 (Approximate), Expi res: 05/23/2026 Start: 04-28-2025 End: 04-28-2026 Echo complete W/O contrast Echo complete W/O contrast Echocardiography Routine Nonischemic cardiomyopathy (CMS-HCC) Chronic systolic heart failure (CMS-HCC) Expected: 04/28/2025, Expires: 04/28/2026 [facility] Work Phone: Comment on above: Expected: 04/28/2025, Expires: Start: 04-27-2025 Adult BMI Screening Adult BMI Screening [facility] Start: 04-27-2025 Tobacco Screening Tobacco Screening [facility] Start: 02-13-2025 End: 02-13-2025 Patient encounter procedure 02/13/2025 3:40 PM EDT Office Visit [facility] [address] [place] [address] Park Yoder, CHRISTOPHE [address] [place] [address] [facility] Start: 11-29-2024 End: 11-29-2025 25-hydroxyvitamin D3 [Mass/volume] in Serum or Plasma Vitamin D 25 hydroxy Total Lab Routine Vitamin D deficiency Expected: 11/29/2024 (Approximate), Expires: 11/29/2025 [facility] Comment on above: Expected: 11/29/2024 (Approximate), Expi res: 11/29/2025 Start: 11-29-2024 End: 11-29-2025 Magnesium [Mass/volume] in Serum or Plasma Magnesium Lab Routine Hypocalcemia Expected: 11/29/2024 (Approximate), Expires: 11/29/2025 [facility] Work Phone: Comment on above: Expected: 11/29/2024 (Approximate), Expi res: 11/29/2025 Start: 11-29-2024 End: 11-29-2025 Parathyrin.intact [Mass/volume] in Serum or Plasma PTH, intact Lab Routine Secondary hyperparathyroidism ([facility]) Expected: 11/29/2024 (Approximate), Expires: 11/29/2025 [facility] Comment on above: Expected: 11/29/2024 (Approximate), Expi res: 11/29/2025 Start: 11-29-2024 End: 11-29-2025 Renal function panel Renal function panel Lab Routine Hypocalcemia Expected: 11/29/2024 (Approximate), Expires: 11/29/2025 [facility] Comment on above: Expected: 11/29/2024 (Approximate), Expi res: 11/29/2025 Start: 11-29-2024 End: 11-29-2024 Patient encounter procedure [facility] Comment on above: Arrived Start: 11-18-2024 End: 08-18-2025 25-hydroxyvitamin D3 [Mass/volume] in Serum or Plasma Vitamin D 25 hydroxy Lab Routine H/O bariatric surgery Vitamin D deficiency Hyperparathyroidism, unspecified (CMS/HCC) Expected: 11/18/2024 (Approximate), Expires: 08/18/2025 [facility] Comment on above: Expected: 11/18/2024 (Approximate), Expi res: 08/18/2025 Start: 11-18-2024 End: 08-18-2025 CBC W Auto Differential panel - Blood CBC and differential Lab Routine Iron deficiency anemia following bariatric surgery Expected: 11/18/2024 (Approximate), Expires: 08/18/2025 [facility] Work Phone: Comment on above: Expected: 11/18/2024 (Approximate), Expi res: 08/18/2025 Start: 11-18-2024 End: 08-18-2025 Cobalamin (Vitamin B12) [Mass/volume] in Serum or Plasma Vitamin B12 Lab Routine H/O bariatric surgery Expected: 11/18/2024 (Approximate), Expires: 08/18/2025 [facility] Comment on above: Expected: 11/18/2024 (Approximate), Expi res: 08/18/2025 Start: 11-18-2024 End: 08-18-2025 Comprehensive metabolic 2000 panel - Serum or Plasma Comprehensive metabolic panel Lab Routine Hyperparathyroidism, unspecified (CMS/HCC) Expected: 11/18/2024 (Approximate), Expires: 08/18/2025 [facility] Comment on above: Expected: 11/18/2024 (Approximate), Expi res: 08/18/2025 Start: 11-18-2024 End: 08-18-2025 Iron + transferrin + TIBC Iron + transferrin + TIBC Lab Routine Iron deficiency anemia following bariatric surgery Expected: 11/18/2024 (Approximate), Expires: 08/18/2025 [facility] Comment on above: Expected: 11/18/2024 (Approximate), Expi res: 08/18/2025 Start: 11-18-2024 End: 08-18-2025 Lipid 1996 panel - Serum or Plasma Lipid panel Lab Routine Chronic systolic heart failure (CMS/HCC) Expected: 11/18/2024 (Approximate), Expires: 08/18/2025 [facility] Comment on above: Expected: 11/18/2024 (Approximate), Expi res: 08/18/2025 Start: 11-18-2024 End: 08-18-2025 Microalbumin/Creatinin e panel in random Urine Microalbumin / creatinine, urine ratio Lab Routine Primary hypertension (CMS/HCC) Expected: 11/18/2024 (Approximate), Expires: 08/18/2025 [facility] Comment on above: Expected: 11/18/2024 (Approximate), Expi res: 08/18/2025 Start: 11-18-2024 End: 08-18-2025 Parathyrin.intact [Mass/volume] in Serum or Plasma PTH, intact Lab Routine Hyperparathyroidism, unspecified (CMS/HCC) Expected: 11/18/2024 (Approximate), Expires: 08/18/2025 [facility] Comment on above: Expected: 11/18/2024 (Approximate), Expi res: 08/18/2025 Start: 11-18-2024 End: 08-18-2025 Urinalysis complete panel - Urine Urinalysis with reflex microscopic (clean catch) Lab Routine Primary hypertension ([facility]/HCC) Expected: 11/18/2024 (Approximate), Expires: 08/18/2025 [facility] Comment on above: Expected: 11/18/2024 (Approximate), Expi res: 08/18/2025 Start: 08-18-2024 End: 08-18-2024 Patient encounter procedure 08/18/2024 3:40 PM EST Office Visit [facility] [address] [place] [address] Park Yoder NP [address] [place] [address] [facility] Start: 07-28-2024 Influenza vaccination Influenza Vaccine (#1) [facility] Comment on above: Postponed from 05/29/2024 (Patient Does Not Have Time) Start: 06-02-2024 End: 06-02-2024 Patient encounter procedure 06/02/2024 8:40 AM EDT Office Visit [facility] [place] [facility] [address] [place] [address] Karyna Sutton, FISHERIES TECHNICAL OFFICER [address] [place] [address] [facility] Start: 05-29-2024 COVID-19 Vaccine ( season) COVID-19 Vaccine () [facility] Start: 05-29-2024 COVID-19 Vaccine ( season) COVID-19 Vaccine () [facility] Start: 05-29-2024 Influenza vaccination [facility] Start: 05-25-2024 End: 05-25-2025 CBC W Auto Differential panel - Blood CBC and differential Lab Routine Thrombocytopenia, unspecified (CMS/HCC) Iron deficiency anemia following bariatric surgery Expected: 05/25/2024 (Approximate), Expires: 05/25/2025 [facility] Comment on above: Expected: 05/25/2024 (Approximate), Expi res: 05/25/2025 Start: 05-25-2024 End: 05-25-2025 Ferritin [Mass/volume] in Serum or Plasma Ferritin Lab Routine Thrombocytopenia, unspecified (CMS/HCC) Iron deficiency anemia following bariatric surgery Expected: 05/25/2024 (Approximate), Expires: 05/25/2025 [facility] Comment on above: Expected: 05/25/2024 (Approximate), Expi res: 05/25/2025 Start: 05-25-2024 End: 05-25-2025 Gamma glutamyl transferase [Enzymatic activity/volume] in Serum or Plasma Gamma GT Lab Routine Elevated liver function tests Expected: 05/25/2024 (Approximate), Expires: 05/25/2025 [facility] Comment on above: Expected: 05/25/2024 (Approximate), Expi res: 05/25/2025 Start: 05-25-2024 End: 05-25-2025 Hepatic function 2000 panel - Serum or Plasma Hepatic function panel Lab Routine Elevated liver function tests Expected: 05/25/2024 (Approximate), Expires: 05/25/2025 [facility] Work Phone: Comment on above: Expected: 05/25/2024 (Approximate), Expi res: 05/25/2025 Start: 05-25-2024 End: 05-25-2025 Iron and Iron binding capacity panel - Serum or Plasma Iron level Lab Routine Thrombocytopenia, unspecified (CMS/HCC) Iron deficiency anemia following bariatric surgery Expected: 05/25/2024 (Approximate), Expires: 05/25/2025 [facility] Comment on above: Expected: 05/25/2024 (Approximate), Expi res: 05/25/2025 Start: 04-27-2024 End: 04-27-2025 Echo complete W/O contrast Echo complete W/O contrast Echocardiography Routine Nonischemic cardiomyopathy (CMS-HCC) Expected: 04/27/2024, Expires: 04/27/2025 [facility] Work Phone: Comment on above: Expected: 04/27/2024, Expires: Start: 04-27-2024 End: 04-27-2024 Patient encounter procedure 04/27/2024 8:30 AM EDT [facility] [address] [place] [address] Chandu Heart MD [address] [place] [address] [facility] Start: 12-28-2023 Screening for malignant neoplasm of colon [facility] Start: 10-15-2023 Adult BMI Screening Adult BMI Screening [facility] Start: 10-15-2023 Tobacco Screening Tobacco Screening [facility] Start: 05-29-2023 COVID-19 Vaccine () COVID-19 Vaccine () [facility] Start: 05-29-2023 Influenza vaccination Influenza Vaccine (#1) [facility] Start: 2022 Abdominal aortic aneurysm screening Abdominal Aortic Aneurysm (AAA) Screen [facility] Start: 2022 Fall Risk Screening Fall Risk Screening [facility] Start: 11-28-2007 Administration of varicella zoster vaccine Zoster (Shingles) Vaccine (1 of 2) [facility] Start: 11-28-1975 Adult BMI Follow Up Plan Adult BMI Follow Up Plan [facility] Start: 1969 Depression Screening Depression Screening [facility] Start: 11-28-1963 Pneumococcal Vaccine: 65+ Years (1 - PCV) Pneumococcal Vaccine: 65+ Years (1 - PCV) [facility] Start: 1955 Medicare Annual Wellness Visit Medicare Annual Wellness Visit [facility] Start: 1955 Screening for malignant neoplasm of colon [facility] End: 05-18-2025 Lipid panel Lipid panel Lab Routine Mixed hyperlipidemia 1 Occurrences starting 05/19/2024 until 05/18/2025 [facility] Work Phone: Comment on above: 1 Occurrences starting 05/19/2024 until 05/18/2025 POCT EKG POCT EKG ECG Rou linda Nonischemic cardiomyopathy (CMS-HCC) Chronic systolic heart failure ([facility]-HCC) Nonsustained ventricular tachycardia ([facility]-HCC) Status post ablation of ventricular arrhythmia 04/27/2024 [facility] Urine culture [facility] Immunizations Immunization Date Immunization Notes Care Provider Hipolito oneal 08-03-2024 Influenza, High-dose Seasonal, Quadrivalent, Preservative Free Park Aichholz [employer] TECHNICAL OFFICER Work Phone: [facility] 08-03-2024 influenza virus vaccine, unspecified formulation Park Aichholz [employer] TECHNICAL OFFICER Work Phone: [facility] 08-12-2023 Influenza, High-dose Seasonal, Quadrivalent, Preservative Free Park Aichholz [employer]ER[employer] TECHNICAL OFFICER Work Phone: [facility] 08-12-2023 influenza virus vaccine, unspecified formulation Ifrah Tapia [facility] 07-29-2021 influenza virus vaccine, unspecified formulation Ary COSTELLO [facility] [place] [facility] 02-13-2021 SARS-CoV-2 (COVID-19 ) mRNA BNT-162b2 vax Delma [facility] 01-23-2021 SARS-CoV-2 (COVID-19 ) mRNA BNT-162b2 vax Delma CHRISTIAN [facility] 09-28-2020 SARS-CoV-2 (COVID-19 ) mRNA BNT-162b2 vax Ary COSTELLO [facility] 07-02-2020 influenza virus vaccine, unspecified formulation Ary PRICEMara [facility] [place] 06-16-2020 diphtheria, tetanus toxoids and pertussis vaccine Park Yoder FISHER[employer] TECHNICAL OFFICER Work Phone: [facility] Payers Date Payer Category Payer [employer] - Other [facility] [id number] 2024 Unknown [id number] 2020 Unknown [id number] 2020 Blue Cross Blue [employer] [id number] 2020 Unknown 2016 Unknown [id number] 1959 Unknown [id number] 1957 Unknown [id number] 2.16.840.1.783174.3.579. 2.593 1957 Unknown [id number] 2.16.840.1.989760.3.579. 2.593 1957 Unknown [id number] 2.16.840.1.964813.3.579. 2.593 1957 Unknown [id number] 2.16.840.1.977875.3.579. 2.593 1957 Unknown [id number] 2.16.840.1.016194.3.579. 2.593 1957 Unknown [id number] 2.16.840.1.023848.3.579. 2.593 1957 Unknown [id number] 2.16.840.1.129113.3.579. 2.593 1957 Unknown [id number] 2.16.840.1.061190.3.579. 2.593 1957 Unknown [id number] 2.16.840.1.169626.3.579. 2.593 1957 Unknown [id number] 2.16.840.1.353442.3.579. 2.727 1957 Unknown [id number] 2.16.840.1.901836.3.579. 2.727 1957 Unknown [id number] 2.16.840.1.655767.3.579. 2.1259 1957 Unknown [id number] 2.16.840.1.786267.3.579. 2.1259 1957 Unknown [id number] 2.16.840.1.345766.3.579. 2.1259 1957 Unknown [id number] 2.16.840.1.112590.3.579. 2.1259 1957 Unknown [id number] 2.16.840.1.552644.3.579. 2.1259 1957 Unknown [id number] 2.16.840.1.016875.3.579. 2.1286 1957 Unknown [id number] 2.16.840.1.386870.3.579. 2.1286 Social History Date Type Detail Facility Start: 12-06-2021 End: 10-26-2023 Tobacco smoking status Never smoked tobacco (finding) [facility] Tobacco smoking status Never [facility] [place] [facility] Start: 10-16-2020 End: 10-26-2023 Sex Assigned At Male [facility] [place] [facility] Start: 10-19-2023 Tobacco smoking status Light t obacco smoker (finding) [facility] Start: 10-16-2020 End: 10-26-2023 History of Social function [facility] Start: 1955 Sex Assigned At Not on file [facility] Start: 11-04-2023 End: 11-29-2024 Alcohol intake Ex-drinker (finding) [facility] Start: 11-04-2023 Alcohol Comment caffine: 3 cups lucretia y [facility] Start: 09-16-2024 Tobacco smoking stat [facility] Tobacco smoking consumption unknown [facility] Start: 10-24-2024 Tobacco smoking status Smokes tobacco daily (finding) [facility] Start: 10-15-2022 Tobacco smoking status Ex-smoker (fi nding) [facility] History of tobacco use Current smoker [facility] History of tobacco use [facility] Start: 10-15-2022 End: 11-29-2024 Tobacco use and exposure Smokeless tobacco non-user [facility] Start: 10-15-2022 End: 06-15-2025 Alcoholic beverage intake Current drinker of alcohol (finding) [facility] Start: 10-15-2022 Tobacco Comment smokes a cigar occasionally [facility] Start: 04-06-2017 Alcohol Comment 1 drink per day [facility] Start: 11-29-2024 Tobacco smoking stat [facility] Occasional tobacco smoker [facility] Start: 05-03-2015 Sex Male (finding) [facility] Start: 1955 Sex Assigned At Male F [facility] Functional Status Date Assessment Result Facility 10-24-2024 Functional Status N/A [facility] 10-19-2023 Functional Status Yes [facility] 04-13-2023 Functional Status N/A [facility] 11-04-2022 Functional Status N/A [facility] 05-19-2022 Functional Status N/A [facility] Clinical Notes 12-18-2021 to 06-15-2025 Alexandre Mcdaniels MD - 06/15/2025 2:15 PM EDTTelephone Encounter - Park Roldan CMA - 06/14/2025 2:37 PM EDTTelephone Encounter - Park Roldan CMA - 06/14/2025 2:37 PM EDTPatient Instructions Note Date & Type Note Facility 06-15-2025 History of Present illness Narrative Shabnam Benitez Jr. Date of visit: 06/15/2025 Date of : 1955 Age: 69 y.o. Patient Active Problem List Diagnosis Ventricular premature depolarization Abnormal electrocardiogram Chronic systolic congestive heart failure (CMS-HCC) Preop cardiovascular exam Acute renal failure Hypokalemia Calculus of ureter Calculus of kidney [...] mouth daily. 90 tablet 3 atorvastatin (LIPITOR) 20 mg tablet Take 1 tablet (20 mg total) by mouth in the morning. 90 tablet 3 calcium carb/vitamin D3/vit K1 (CALCIUM SOFT CHEW ORAL) Take 250 mg by mouth in the morning. ciprofloxacin HCl (CIPRO) 500 mg tablet Take 1 tablet (500 mg total) by mouth in the morning and 1 tablet (500 mg total) before bedtime. dutasteride (AVODART) 0.5 mg capsule Take 1 capsule (0.5 mg total) by mouth in the morning. IRON, FERROUS SULFATE, ORAL Take 30 mg by mouth. 2 tablets daily-chew lisinopriL (PRINIVIL,ZESTRIL) 5 mg tablet TAKE 1 TABLET BY MOUTH IN THE MORNING 90 tablet 0 metoprolol succinate XL (TOPROL XL) 25 mg 24 hr tablet TAKE 1 TABLET BY MOUTH TWICE DAILY (MORNING AND BEFORE BEDTIME) 180 tablet 0 multivitamin (THERAGRAN) tablet Take 1 tablet by mouth in the morning. No current facility-administered medications for this visit. Chief Complaint Patient presents with Follow-up EST PT F/U 1 YR ECHO DONE AT [place] [facility] History of Present Illness I had the pleasure seeing Shabnam here at our cardiology office. He is a 69-year-old gentleman with a past medical history of systolic heart failure with improvement in EF. With near normalization. He presents today for general follow-up. Denies any significant cardiovascular complaint. Remains quite active. Past Medical History: Diagnosis Date Abnormal ECG Abnormal findings on diagnostic imaging of heart and coronary circulation Anemia Arrhythmia BPH (benign prostatic hyperplasia) Chronic systolic congestive heart failure ([facility]-HCC) Encounter for preprocedural cardiovascular examination Hyperlipidemia Kidney stones lithotrypsy Ventricular premature depolarization No data recorded No data recorded No data recorded Past Surgical History: Procedure Laterality Date APPENDECTOMY CHOLECYSTECTOMY Coronary angiogram and right heart and left ventricular gram/pressure N/A 04/14/2017 Performed by Aidan Pittman MD at [facility] CARDIAC CATH LABS GASTRIC BYPASS HERNIA REPAIR PVC ABLATION, RHYTHMIA, ICE N/A 11/13/2017 Performed by Sameer Martínez MD at [facility] (EP) TRANSURETHRAL RESECTION OF PROSTATE Family [...] Social History Narrative Not on file Social Drivers of Health Financial Resource Strain: Not on file Food Insecurity: No Food Insecurity (06/15/2025) Hunger Screening Food Insecurity - Worry: Never True Food Insecurity - Inability: Never True Transportation Needs: Not on file Physical Activity: Not on file Stress: Not on file Social Connections: Not on file Interpersonal Safety: Not on file Housing Instability: Not on file Review of Systems Review of Systems Constitutional: Negative. HENT: Negative. Eyes: Negative. Negative for visual disturbance. Cardiovascular: Negative. Respiratory: Negative. Endocrine: Negative. Hematologic/Lymphatic: Bruises/bleeds easily. Skin: Negative. Musculoskeletal: Positive for muscle weakness. Gastrointestinal: Negative. Genitourinary: Negative. Neurological: Positive for dizziness. Psychiatric/Behavioral: Negative. Allergic/Immunologic: Negative. Vascular: Negative.Negative for lower extremity wounds or ulcers. CARDIOVASCULAR: Please review HPI. Physical Examination General appearance: Alert, oriented and cooperative. In no acute distress. Skin: Warm and dry to touch. Head: Normocephalic, without obvious abnormality, atraumatic. Ears, Nose, Mouth, Throat: Throat clear without erythema or exudate. Dentition intact. Eyes: Conjunctivae unremarkable, EOM intact. Neck: No JVD, No carotid bruit. Neck supple, trachea midline. Respiratory: Clear to auscultation bilaterally, no use of accessory muscles. Cardiovascular: RRR with normal S1 and S2 with no murmurs. Gastrointestinal: Soft, non-tender. Bowel sounds normal. Musculoskeletal: No peripheral edema. Neurologic: Oriented to time, person and place, affect appropriate. No focal/major motor defects noted. Psychiatric: Appropriate mood, memory and judgement. VITAL SIGNS: BP 104/62 Pulse 71 Ht 180.3 cm (5' 11 ) Wt 105.7 kg (233 lb) SpO2 94% BMI 32.50 kg/m Orders Placed or Reconciled This Encounter Medications dutasteride (AVODART) 0.5 mg capsule Sig: Take 1 capsule (0.5 mg total) by mouth in the morning. ciprofloxacin HCl (CIPRO) 500 mg tablet Sig: Take 1 tablet (500 mg total) by mouth in the morning and 1 tablet (500 mg total) before bedtime. There are no discontinued medications. [id number] Score: 1 0.6% Stroke risk per year, 0.9% risk of stroke/TIA/systemic embolism IMPRESSIONS/PLAN 1. Ventricular premature depolarization 2. Chronic systolic congestive heart failure (CMS-HCC) 3. Nonsustained ventricular tachycardia (CMS-HCC) Stable from a cardiovascular standpoint. We will continue his current medical regimen. I will see him back in 1 year. I think at some point we need to update his echocardiogram we will help him schedule this. TODAYS ORDERS No orders of the defined types were placed in this encounter. FOLLOW UP Return in about 1 year (around 06/15/2026). PCP: PARK YODER APRN-MEAT COUNTER CLERK Referring Physician: Park Yoder APRN-MEAT COUNTER CLERK [address] [place] [address] documented in this encounter [facility] 06-14-2025 Miscellaneous Notes Called patient to remind them to bring their most current copy of their medication list with them to their appt. Patient verbalizes understanding. documented in this encounter [facility] 06-14-2025 Telephone encounter Note Called patient to remind them to bring their most current copy of their medication list with them to their appt. Patient verbalizes understanding. [facility] 05-10-2025 Miscellaneous Notes Ov-04/27/24 Next ov-06/15/25 documented in this encounter [facility] 05-10-2025 Telephone encounter Note Ov-04/27/24 Next ov-06/15/25 [facility] 04-28-2025 History of Present illness Narrative Pt echo order . New order created and faxed to [place] so pt could have done documented in this encounter [facility] 03-28-2025 History of Present illness Narrative Shabnam Benitez is a 69 y.o. male No ref. provider found presents with chief complaint of Abnormal Calcium and Follow-up ([facility]) HPI: Interim History 04/2025 Follow up visit on 05/23/2025, He is on 7500 unit of vitamin D and 1300 mg calcium, plus 50,000 units once weekly, plus MVI, 03/2025 PTH 66 ( 15-65), vitamin-D 20, magnesium 2.2 ( 1.8-2.6), GFR above 60, calcium 8.4 ( 8.5-10.1), phos4 within normal limits. Interim History 11/2024 Follow up visit on [...] At moderate risk for fall Atrial flutter (HCC) Benign prostatic hyperplasia with lower urinary tract symptoms, symptom details unspecified Cardiomyopathy (HCC) COVID-19 virus infection Elevated liver function tests Elevated parathyroid hormone Enlarged prostate Fatigue Gross hematuria H/O bariatric surgery 11/04/2023 HTN (hypertension) 11/04/2023 Hyperlipidemia 11/04/2023 Hypocalcemia Iron deficiency anemia following bariatric surgery 11/04/2023 Murmur Non-ischemic cardiomyopathy (HCC) NSVT (nonsustained ventricular tachycardia) (HCC) and paroxysmal vtach Obesity with body mass index (BMI) of 30.0 to 39.9 Paroxysmal ventricular tachycardia (HCC) Prostate cancer (HCC) Adenocarcinoma RBBB (right bundle branch block) Rectal burning Ruptured tympanic membrane, right Secondary hyperparathyroidism (HCC) Systolic heart failure (HCC) Venous insufficiency of both lower extremities Ventricular tachycardia (HCC) Vitamin D deficiency, unspecified Weakness of both legs Past Surgical History: Procedure Laterality Date BARIATRIC SURGERY REVIEW OF SYMPTOMS: 14 POINT OF SYSTEM REVIEWED AND NEGATIVE OBJECTIVE: Visit Vitals BP 90/60 Pulse 67 Resp 16 Ht 5' 5 Wt 234 lb SpO2 98% BMI 38.94 kg/m Smoking Status Some Days BSA 2.2 m Physical Exam Constitutional: Appearance: Normal appearance. [...] this visit: Hypocalcemia - Magnesium; Future - PTH, intact and calcium; Future - Renal function panel; Future - Vitamin D 25 hydroxy Total; Future He is on 1300 mg daily plus multivitamin. Vitamin D deficiency - Magnesium; Future - PTH, intact and calcium; Future - Renal function panel; Future - Vitamin D 25 hydroxy Total; Future Level 20 he is on 50,000 once a week +7500 units daily Secondary hyperparathyroidism (HCC) - Magnesium; Future - PTH, intact and calcium; Future - Renal function panel; Future - Vitamin D 25 hydroxy Total; Future Most likely tertiary. Status post gastric bypass for obesity No follow-ups on file. documented in this encounter [facility] 11-29-2024 History of Present illness Narrative Shabnam Benitez is a 69 y.o. male Vijay [...] months (around 06/01/2025). documented in this encounter [facility] 10-24-2024 Hospital Discharge instructions Patient Education 10/24/2024 [...] Follow these instructions at home: Medicines Take sccg-uug-vqjuwqr and prescription medicines only as told by [...] important. Where to find more information National [place] of Diabetes and Digestive and Kidney Diseases: [...] depends on the type of prostatitis. Take xxqh-mgb-mdlhtie and prescription medicines only as told by [...] provider. Document Revised: 07/30/2023 Document Reviewed: 07/30/2023 [employer] Patient Education 2023 Poll Everywhere. Follow Up Care 10/19/2023 15:47:06 With:ANAHI MCDONALD, Delma Ross, URL Address: [facility] [address] , [place] [address]- [phone] When: Unknown Comments:1 yr w/ PSA and KUB [facility] 10-24-2024 Note Patient Education Infectious Disease Prostatitis [...] these instructions at home: Medicines ??? Take fxqx-fda-vcrijzi and prescription medicines only as told by [...] This is important. (more content not included)... [facility] History of Present illness Narrative Images from the original note were not included. Shabnam Benitez is a 68 y.o. male presents [...] and b ridge documented in this encounter [facility] 08-18-2024 Instructions Park Yoder NP - 08/18/2024 3:40 PM EST No med dose changes at this time MAKE SURE YOU KEEP TAKING YOUR SUPPLEMENTS!!!! I will send you lab slip in October 2024 documented in this encounter [facility] 06-07-2024 Miscellaneous Notes Images from the original note were not included. Makenzie Roberson RN 06/07/2024 2:28 PM EDT Back to [facility] Lab results and TLMs recommendations called and reviewed with patient. Pt will decrease Lipitor to 20 mg daily, repeat fasting labs next year and new script will be sent to [facility] today. Makenzie Roberson RN 06/07/2024 2:22 PM EDT MD Makenzie Sheikh RN I would decrease his Lipitor down to 20 mg a day and recheck it in a year. Makenzie Roberson RN 06/07/2024 11:53 AM EDT TLM, labs ordered d/t med refills. Med list includes Lipitor 40 mg daily. Chol 68 Trigly 36 LDL 13.8 signed documented in this encounter [facility] 06-07-2024 Telephone encounter Note Images from the original note were not included. Makenzie Roberson RN 06/07/2024 2:28 PM EDT Back to [facility] Lab results and TLMs recommendations called and reviewed with patient. Pt will decrease Lipitor to 20 mg daily, repeat fasting labs next year and new script will be sent to [facility] today. Makenzie Roberson RN 06/07/2024 2:22 PM EDT MD Makenzie Sheikh RN I would decrease his Lipitor down to 20 mg a day and recheck it in a year. Makenzie Roberson RN 06/07/2024 11:53 AM EDT TLM, labs ordered d/t med refills. Med list includes Lipitor 40 mg daily. Chol 68 Trigly 36 LDL 13.8 [facility] 06-07-2024 Telephone encounter Note signed [facility] 05-25-2024 History of Present illness Narrative [...] the original note were not included. Shabnam Benitez is a 68 y.o. male presents [...] vit d def documented in this encounter [facility] 05-20-2024 Miscellaneous Notes OV 04/27/24 04/02/24 CBC, CMP documented in this encounter [facility] 05-20-2024 Telephone encounter Note OV 04/27/24 04/02/24 CBC, CMP [facility] 05-18-2024 Miscellaneous Notes Last OV 04/27/24 Order placed for lipids.slm documented in this encounter [facility] 05-18-2024 Telephone encounter Note Last OV 04/27/24 Order placed for lipids.slm [facility] 05-06-2024 Miscellaneous Notes Last ov 04/27/24 Bmp 04/21/24 Lipid 04/01/23 Director [employer] attempted to contact pt, lmom For further refills, pt needs to complete lipid lab. Letter mailed tp pt. documented in this encounter [facility] 05-06-2024 Telephone encounter Note Last ov 04/27/24 Bmp 04/21/24 Lipid 04/01/23 Director [employer] attempted to contact pt, lmom For further refills, pt needs to complete lipid lab. Letter mailed tp pt. [facility] 04-27-2024 History of Present illness Narrative Shabnam Benitez Jr. Date of visit: 04/27/2024 Date [...] Congestive Heart Failure History of Present Illness Shabnam is here for follow-up. He has a [...] prostatic hyperplasia) Chronic systolic congestive heart failure ([facility]) Encounter for preprocedural cardiovascular examination Hyperlipidemia Kidney stones lithotrypsy Ventricular premature depolarization No data recorded No data recorded No data recorded Past Surgical History: Procedure Laterality Date APPENDECTOMY CHOLECYSTECTOMY Coronary angiogram and right heart and left ventricular gram/pressure N/A 04/14/2017 Performed by Aidan Pittman MD at [facility] CARDIAC CATH LABS GASTRIC BYPASS HERNIA REPAIR PVC ABLATION, RHYTHMIA, ICE N/A 11/13/2017 Performed by Sameer Martínez MD at [facility] (EP) TRANSURETHRAL RESECTION OF PROSTATE Family [...] this encounter. There are no discontinued medications. [id number] Score: 1 0.6% Stroke risk per year, [...] in about 1 year (around 04/27/2025). PCP: PARK J AICHHOLZ, CELL STRIPPER FINAL-MEAT COUNTER CLERK Referring Physician: Park Yoder, CELL STRIPPER FINAL-MEAT COUNTER CLERK [address] [place] [address] Pt would like to schedule testing at [facility]. Pt given echo orders. documented in this encounter [facility] 04-26-2024 Miscellaneous Notes Left message for patient to remind them to bring their most current medication list with them to their appointment. documented in this encounter [facility] 04-26-2024 Telephone encounter Note Left message for patient to remind them to bring their most current medication list with them to their appointment. [facility] 11-04-2023 History of Present illness Narrative [...] the original note were not included. Shabnam Benitez is a 67 y.o. male presents [...] cont current meds documented in this encounter [facility] 10-19-2023 Hospital Discharge instructions Patient Education 10/19/2023 [...] urethra. Follow these instructions at home: Take rivb-tak-ucggeyi and prescription medicines only as told by [...] provider. Document Revised: 04/02/2022 Document Reviewed: 04/02/2022 [employer] Patient Education 2022 Poll Everywhere. Follow Up Care 04/13/2023 16:26:55 With:ANAHI MCDONALD, Delma Ross, URL Address: [facility] [address], [place] [address]- When:Within 1 Year(s) Comments:w/PSA [facility] [place] 04-13-2023 Hospital Discharge instructions Patient Education [...] under a microscope. This is called the [place] score and the total score can range from 6 10, indicating how likely it is that the cancer will spread (metastasize) to other parts of the body. The higher the score, the greater the likelihood that the cancer will spread. [place] 6 or lower: This indicates that the cancer cells look similar to normal prostate cells (well differentiated). Marixa 7: This indicates that the cancer cells look somewhat similar to normal prostate cells (moderately differentiated). [place] 8, 9, or 10: This indicates that [...] stress of having cancer. General instructions Take tzlf-xvv-zvmjlng and prescription medicines only as told by your health care provider. If you have to go to the hospital, notify your cancer specialist (oncologist). Keep all follow-up visits. This is important. Where to find more information [place] [employer]: www.cancer.org [place] Society of Clinical Oncology: www.cancer.net National Cancer [place]: www.cancer.gov Contact a health care provider if: [...] provider. Document Revised: 12/11/2021 Document Reviewed: 12/11/2021 [employer] Patient Education 2022 [employer] Follow Up Care 03/16/2023 14:05:40 With:ANAHI MCDONALD, Delma Ross, URL Address: [facility] [address] , [place] [address] [phone] When: Unknown Comments:6 mos w/ PSA and PVR [facility] 11-03-2022 Hospital Discharge instructions Patient [...] urethra. Follow these instructions at home: Take aiyg-mzk-vqmcvrs and prescription medicines only as told by [...] 09/14/2006 Document Revised: 08/09/2019 Document Reviewed: 10/19/2017 [employer] Patient Education 2020 Poll Everywhere. Follow Up Care 10/13/2022 13:53:44 With:ANAHI MCDONALD, DELANEY Conti Address: [facility] [address] [place] [address]- When: Unknown [facility] 05-19-2022 Hospital Discharge instructions Patient Education 05/19/2022 16:24:13 Prostatitis, Mnjn-xu-Cwvj Prostatitis Prostatitis is swelling of the prostate gland. The prostate helps to make semen. It is below a man's bladder, in front of the rectum. There are different types of prostatitis. Follow these instructions at home: Take eend-ysp-awbbaew and prescription medicines only as told by [...] 03/15/2013 Document Revised: 08/27/2018 Document Reviewed: 06/04/2017 [employer] Patient Education [employer] 05/19/2022 16:24:11 Calorie Counting for Weight Loss [...] 09/14/2006 Document Revised: 06/03/2019 Document Reviewed: 08/14/2017 [employer] Patient Education 2020 Poll Everywhere. Follow Up Care 11/22/2021 12:25:13 With:ANAHI MCDONALD, Delma Ross, URL Address: [address] [place] [phone]- Business (1) When:Within 6 Month(s) Comments:w/FESTUS [facility] 12-18-2021 Note OPERATIVE NOTE PREOPERATIVE [...] due to the poor prep. CC: Park Yoder [facility] Signed and Approved by: DR ARY COSTELLO . 12/20/2021 11:57:00 [facility] Evaluation + Plan note Future Appointments Appointment Date:05/19/2022 03:15:00 PM Scheduled Provider:Delma CHRISTIAN MD Location:[facility] Appointment Type:URO Office Visit General Surgery [place] Evaluation + Plan note Future Appointments Appointment Date:11/24/2022 03:30:00 PM Scheduled Provider:Delma CHRISTIAN MD Location:[facility] Appointment Type:URO Office Visit Diagnostic Tests PendingPSA Total 05/19/22 [facility] Evaluation + Plan note Future Appointments Appointment Date:03/18/2023 08:30:00 AM Scheduled Provider:Delma CHRISTIAN MD Location:[facility] Appointment Type:URO Office Visit Diagnostic Tests PendingUroVysion Fish and Urine Cyto ([facility]) 11/04/22 [facility] Evaluation + Plan note Future Appointments Appointment Date:03/23/2023 03:00:00 PM Scheduled Provider:Delma CHRISTIAN MD Location:[facility] Appointment Type:URO Office Visit [facility] Evaluation + Plan note Future Appointments Appointment Date:10/19/2023 02:45:00 PM Scheduled Provider:Delma CHRISTIAN MD Location:[facility] Appointment Type:URO Office Visit Diagnostic Tests PendingPSA Total 04/13/23 [facility] Evaluation + Plan note Future Appointments Appointment Date:10/24/2024 03:00:00 PM Scheduled Provider:Delma CHRISTIAN MD Location:[facility] Appointment Type:URO Office Visit Diagnostic Tests PendingPSA Total 10/19/23 [facility] Evaluation + Plan note Future Appointments Appointment Date:10/23/2025 03:15:00 PM Scheduled Provider:Delma CHRISTIAN MD Location:[facility] Appointment Type:URO Office Visit Diagnostic Tests PendingPSA Total 10/24/24 [facility] Evaluation note Diagnosis Iron deficiency [...] bariatric surgery Hypocalcemia documented in this encounter [facility]* Diagnosis Weakness- Primary Other malaise and fatigue Thrombocytopenia, unspecified (CMS/HCC) Thrombocytopenia, unspecified Hyperparathyroidism, unspecified (CMS/HCC) Hyperparathyroidism, unspecified Other ventricular tachycardia (CMS/HCC) Elevated liver function tests Other abnormal blood chemistry Iron deficiency anemia following bariatric surgery Primary hypertension (CMS/HCC) Unspecified essential hypertension Elevated parathyroid hormone Vitamin D deficiency documented in this encounter [facility] note* Diagnosis Nonischemic cardiomyopathy (CMS-HCC)- Primary Other primary cardiomyopathies Chronic systolic heart failure (CMS-HCC) Chronic systolic heart failure Nonsustained ventricular tachycardia (CMS-HCC) Status post ablation of ventricular arrhythmia Other postprocedural status documented in this encounter [facility]* Diagnosis Mixed hyperlipidemia- Primary documented in this encounter [facility]* Diagnosis Mixed hyperlipidemia- Primary documented in this encounter [facility]* Diagnosis Iron deficiency anemia [...] (of renal origin) documented in this encounter [facility]* Diagnosis Iron deficiency anemia following [...] site not specified documented in this encounter [facility]* Diagnosis Nonischemic cardiomyopathy (CMS-HCC)- Primary Other primary cardiomyopathies Chronic systolic heart failure (CMS-HCC) Chronic systolic heart failure documented in this encounter [facility]* Diagnosis Iron deficiency anemia [...] Hypocalcemia- Primary Vitamin D deficiency Secondary hyperparathyroidism (HCC) Secondary hyperparathyroidism (of renal origin) Status post gastric bypass for obesity Bariatric surgery status documented in this encounter [facility] note* Diagnosis Ventricular premature depolarization- Primary Other premature beats Chronic systolic congestive heart failure (CMS-HCC) Nonsustained ventricular tachycardia (CMS-HCC) documented in this encounter [facility]* Diagnosis Onset Date Resolution Status Admit Date Chronic systolic heart failure acute June 29, 2025 3:27pm Essential hypertension acute Oc tober 2024 3:27pm Frequent UTI acute June 29, 2025 3:27pm H/O bariatric surgery acute Oct buck 2024 3:27pm Hyperparathyroidism acute Octob er 2024 3:27pm ALEXIS (iron deficiency anemia) acute June 29, 2025 3:27pm Morbid obesity due to excess calories acute June 29 3:27pm Vitamin D deficiency acute 2024 3:27pm [facility] Work Phone: Hospital course Narrative No data available for this section General Surgery [place] [facility] Discharge instructions No data available for this section General Surgery [place] InstructionsNot on filedocumented in this encounter [facility] [...] available for this section [facility] reason for referral (narrative)No reason for referral information availableUniversity [facility] Work Phone: Summary Purpose Family History No Family History Records FoundNo Family History Records FoundNo Family History Records FoundNo Family History Records Found No data available for this section No data available for this section No Family History Records FoundNo Family History Records FoundNo Family History Records FoundNo Family History Records Found Advance Directives Advance Directive Response Recorded Date/ Time Advance Directives No May 4:07pm Reason for Referral Specialty Diagnoses / Procedures Referred By Jewlel t Referred To Contact Diagnoses Nonischemic cardiomyopathy (CMS-HCC) Procedures Echo complete W/O contrast Chandu Heart MD [address] [place] [address] Referral ID Status Reason Start Date Expiration Date V isits Requested Visits Authorized [id number] Pending Review 04/27/2024 04/27/2025 1 1 Chief Complaint and Reason for Visit Chief Complaint Admit Date 2M June 29, 2025 3: 27pm Reason for Visit Admit Date Chronic systolic heart failure June 292024 3:27pm Essential hypertension June 29, 2025 3:27pm Frequent UTI June 29, 2025 3: 27pm H/O bariatric surgery June 29, 2025 3:27pm Hyperparathyroidism June 29, 2025 3: 27pm ALEXIS (iron deficiency anemia) June 3:27pm Morbid obesity due to excess calories Oc tober 2024 3:27pm Vitamin D deficiency June 29, 2025 3 :27pm Additional Source Comments (unrecognized sect ion and content) No Status Records FoundNo Status Records FoundNo Status Records FoundNo Status Records FoundNo Status Records FoundNo Status Records FoundNo Status Records FoundNo Status Records Found INFORMATION SOURCE (unrecogn ized section and content) DATE CREATED AUTHOR 03/18/2018 [facility] DATE CREATED AUTHOR AUTHOR'S ORGANIZ ATION 04/15/2019 [facility] DATE CREATED AUTHOR AUTHOR'S ORGANIZ ATION 12/16/2021 [facility] DATE CREATED AUTHOR AUTHOR'S ORGANIZ ATION 11/28/2022 [facility] DATE CREATED AUTHOR AUTHOR'S ORGANIZ ATION 10/28/2024 [facility] DATE CREATED AUTHOR AUTHOR'S ORGANIZ ATION 05/25/2025 [facility] EPIC DATE CREATED AUTHOR AUTHOR'S ORGANIZ ATION 06/16/2025 [facility] DATE CREATED AUTHOR AUTHOR'S ORGANIZ ATION 06/17/2025 [facility] Care Team (unrecognized sect ion and content) Consumer Loan Processor Relationship Specialty Start Date End Date Kenny Hartley MD [address] [place] [address] PCP - General Family Medicine 10/26/23 Consumer Loan Processor Relationship Specialty Start Date End Date Kenny Hartley MD [address] [place] [address] PCP - General Family Medicine 10/26/23 Consumer Loan Processor Relationship Specialty Start Date End Date Kenny Hartley MD [address] [place] [address] PCP - General Family Medicine 10/26/23 Park Yoder NP [address] [place] [address] PCP - [employer] 03/28/24 Consumer Loan Processor Relationship Specialty Start Date End Date Kenny Hartley MD [address] [place] [address] PCP - General Family Medicine 10/26/23 Park Yoder NP [address] [place] [address] PCP - [employer] 03/28/24 Consumer Loan Processor Relationship Specialty Start Date End Date Kenny Hartley MD [address] [place] [address] PCP - General Family Medicine 10/26/23 Park Yoder NP [address] [place] [address] PCP - [employer] 03/28/24 Consumer Loan Processor Relationship Specialty Start Date End Date Kenny Hartley MD [address] [place] [address] PCP - General Family Medicine 10/26/23 Park Yoder NP [address] [place] [address] PCP - [employer] 03/28/24 Consumer Loan Processor Relationship Specialty Start Date End Date Kenny Hartley MD [address] [place] [address] PCP - General Family Medicine 10/26/23 Park Yoder NP [address] [place] [address] PCP - [employer] 03/28/24 Consumer Loan Processor Relationship Specialty Start Date End Date Kenny Hartley MD [address] [place] [address] PCP - General Family Medicine 10/26/23 Park Yoder NP [address] [place] [address] PCP - [employer] 03/28/24 Consumer Loan Processor Relationship Specialty Start Date End Date Kenny Hartley MD [address] [place] [address] PCP - General Family Medicine 10/26/23 Park Yoder NP [address] [place] [address] PCP - [employer] 03/28/24 Consumer Loan Processor Relationship Specialty Start Date End Date Park Yoder, CELL STRIPPER FINAL-MEAT COUNTER CLERK [address] [place] [address] PCP - General Nurse Practitioner 03/15/20 Consumer Loan Processor Relationship Specialty Start Date End Date Park Yoder [facility] [address] [place] [address] PCP - General Nurse Practitioner 03/15/20 Consumer Loan Processor Relationship Specialty Start Date End Date Park Yoder [facility] [address] [place] [address] PCP - General Nurse Practitioner 03/15/20 [employer]or Relationship Specialty Start Date End Date Park Yoder [facility] [address] [place] [phone] PCP - General Nurse Practitioner 03/15/20 Consumer Loan Processor Relationship Specialty Start Date End Date Park Yoder [facility] PCP - General Nurse Practitioner 03/15/20 Consumer Loan Processor Relationship Specialty Start Date End Date Park Yoder [facility] PCP - General Nurse Practitioner 03/15/20 Consumer Loan Processor Relationship Specialty Start Date End Date Park Yoder [facility] PCP - General Nurse Practitioner 03/15/20 Consumer Loan Processor Relationship Specialty Start Date End Date Kenny Hartley MD [address] [place] [phone] PCP - General Family Medicine 1/29/24 Park Yoder NP [address] [place] [phone] PCP - [employer] 03/28/24 [employer]or Relationship Specialty Start Date End Date Kenny Hartley MD [address] [place] [phone] PCP - General Family Medicine 10/26/23 Park Yoder NP [address] [place] [phone] PCP - [employer] 03/28/24 Consumer [employer] Processor Relationship Specialty Start Date End Date Kenny Hartley MD [address] [place] [phone] PCP - General Family Medicine 10/26/23 Consumer Loan Processor Relationship Specialty Start Date End Date Kenny Hartley MD [address] [place] [phone] PCP - General Family Medicine 10/26/23 Consumer [employer] Processor Relationship Specialty Start Date End Date Park Yoder APRN-CNP PCP - General Nurse Practitioner 03/15/20 Consumer [employer] Processor Relationship Specialty Start Date End Date Park Yoder APRN-CNP PCP - General Nurse Practitioner 03/15/20 Consumer Loan Processor Relationship Specialty Start Date End Date Park Yoder APRN-CNP PCP - General Nurse Practitioner 03/15/20 Consumer Loan Processor Relationship Specialty Start Date End Date Kenny Hartley MD [address] [place] [phone] PCP - General Family Medicine 10/26/23 Consumer Loan Processor Relationship Specialty Start Date End Date Kenny Hartley MD [address] [place] [phone] PCP - General Family Medicine 10/26/23 Consumer Loan Processor Relationship Specialty Start Date End Date Park Yoder APRN-LILIANA PCP - General Nurse Practitioner 03/15/20 Consumer Loan Processor Relationship Specialty Start Date End Date Park Yoder APRN-MEAT COUNTER CLERK PCP - General Nurse Practitioner 03/15/20 Team Status: Active Member Role Status Dates FREDDY Sneed Primary Care Provider Active Team Status: Inactive Member Role Status Dates FREDDY Sneed Primary Care Provider Active Start: June 29, 2025 End: June 29, 2025 FREDDY Sneed Attending Provider Active Start: June 29, 2025 End: June 29, 2025 Reason for Visit (unrecogniz ed section and content) Reason Onset Date Comments Med Refill 02/09/2024 Reason Onset Date Comments Med Refill 02/15/2024 Reason Comments Follow-up 18 month Congestive Heart Failure Reason Comments Med Refill Reason Onset Date Comments Med Refill 05/18/2024 Reason Onset Date Comments Med Refill 05/20/2024 Reason Onset Date Comments Lipitor and fasting labs 06/07/2024 Reason Comments Abnormal Calcium Reason Comments Abnormal Calcium Follow-up [facility] Reason Comments Follow-up EST PT F/U 1 YR ECHO DONE AT [facility] Goals (unrecognized section and content) Goals may be documented in a n alternate section FOR RECORDS PERTAINING TO PATIENTS WHO ARE [...] BE BASED ON THE PRIMARY CLINICAL RECORDS. [facility] [employer] [facility]. provides no warranty or guarantee of the accuracy or completeness of information in this document.
[2025-07-07 17:08] LABS: Glucose Urine UA NEGATIVE (NEGATIVE)
[2025-07-07 18:12] LABS: Cast Seen? NONE SEEN #/LPF (NONE SEEN); Crystals Seen? Seen #/HPF (None Seen); Urine Culture Indicated ALREADY ORDERED
== END 2025-07-07 16:48 | disposition home or self-care (01) ==
PROVIDERS: PCP Nurse Practitioner; Visit Provider Nurse Practitioner
DX: N39.0 Urinary tract infection, site not specified (principal)
CPT/HCPCS: 81001; 87086